=== PATIENT | female | born 1935 | race Caucasian/White ===

== ENCOUNTER 2018-01-06 15:32 | Inpatient (IN) | payer MEDICARE ==
[2018-01-06 16:06] LABS: Hemoglobin 12.8 g/dL (12.0-16.0); Mean Corpuscular HGB CONC 31.7 g/dL (32.0-36.0); Mean Corpuscular Hemoglobin 27.4 pg (27.0-31.0); Mean Corpuscular Volume 86.6 fl (81.0-99.0); Mean Platelet Volume 8.7 fL (7.4-10.4); Platelet Count 386 thou/uL (130-400); Red Blood Cell (RBC) Count 4.67 mill/uL (4.20-5.40); White Blood Cell (WBC) Count 18.7 thou/uL (4.8-10.8)
[2018-01-06 16:21] LABS: Band 23 % (5-11); Elliptocytes SLIGHT = 2-5 cells (100X) (0-1/hpf); Lymphocytes 3 % (21-51); MDiff Complete? YES; Monocytes 3 % (0-10); Neutrophil 71 % (42-75); Ovalocytes SLIGHT = 2-5 cells (100X) (0-1/hpf); PLT Morphology Comment Appears Adequate; Polychromasia SLIGHT = 2-3 cells (100X) (0-2/hpf); Toxic Granulation SLIGHT; Vacuoles SLIGHT
[2018-01-06 16:29] LABS: CKMB 0.9 ng/mL (0-6.6); Troponin I 0.134 ng/mL (< 0.028)
--- NOTE | 2018-01-06 16:55 | RAD ---
PORTABLE CHEST 01/06/18 PROVIDED CLINICAL HISTORY: Cough. FINDINGS: Comparison is made with the study dated 07/03/15. The cardiac silhouette remains enlarged. Atherosclerosis involves the aortic arch. Left subclavian ca rdiac pacing device is again noted with lead tips in similar positions. There is parenchymal opacity at the medial right lung base which may reflect pneumonia. No pleural fluid or pneumothorax apparent. IMPRESSION: Parenchymal opacity at the medial right lung base, which may reflect pneumonia. Followup is recommend ed. POS: OFF
[2018-01-06 17:07] LABS: Albumin 3.3 g/dL (3.4-4.8)
[2018-01-06 17:08] LABS: Chloride 100 mmol/L (98-107); Potassium 4.4 mmol/L (3.5-5.1); Sodium 138 mmol/L (136-145)
[2018-01-06 17:09] LABS: Calcium 8.9 mg/dL (7.8-10.44)
[2018-01-06 17:10] LABS: Globulin 3.5 g/dL (2.4-3.5); Glucose 76 mg/dL (83-110); Protein, Total 6.8 g/dL (6.0-8.3)
[2018-01-06 17:11] LABS: Anion Gap 14 mmol/L (10-20); Bilirubin, Total 0.5 mg/dL (0.2-1.2); Carbon Dioxide 28 mmol/L (23-31)
[2018-01-06 17:11] LABS: Prothrombin Time 23.4 SEC (12.0-14.7)
[2018-01-06 17:13] LABS: Alkaline Phosphatase 81 U/L (40-150); Calc. Creatinine Clearance 0 mL/min (70-130); Estimated GFR-MDRD 33
[2018-01-06 17:14] LABS: BUN (Urea Nitrogen) 32 mg/dL (9.8-20.1)
[2018-01-06 17:15] LABS: AST (SGOT) 19 U/L (5-34)
[2018-01-06 17:16] LABS: ALT (SGPT) 14 U/L (8-55)
[2018-01-06] MEDS ORDERED: Sodium Chloride 0.9% 1,000 ML IV SCH ×3 (17:45→21:28)
[2018-01-06] MEDS ORDERED: Acetaminophen 650 MG Suppository PR PRN (17:45)
[2018-01-06] MEDS ORDERED: WARFARIN PO PRN (18:05)
[2018-01-06] MEDS ORDERED: Warfarin Sodium 5 MG TAB PO SCH (18:15)
[2018-01-06] MEDS ORDERED: Dextrose 50% Abboject 50 ML SYRINGE SLOW IVP PRN (18:21)
[2018-01-06] MEDS ORDERED: Dextrose 5% in Water 1,000 ML IV PRN (18:21)
--- NOTE | 2018-01-06 19:01 | HP ---
PRIMARY CARE PROVIDER: PENNY Vogel OCCUPATIONAL THERAPY DEPARTMENT CHAIR: Dr. Talavera. INSTRUCTIONAL CONSULTANT: Dr. Razo. CHIEF COMPLAINT: Shortness of breath. HISTORY OF PRESENT ILLNESS: Ms. Rico is a pleasant 82-year-old lady who was seen at [facility] on 01/06/2018. Four days ago, she developed cough and runny nose. She reports that the cough was initially nonproductive, but subsequently she started having clear sputum. The , she took Mucinex. She also increased a use of her inhalers because she thought she was having an asthma exacerbation. The inhaler did not help much. Today, she had severe shortness of b reath. She also reports that she had a temperature of 100.2 degrees Fahrenheit yesterday. Today whe n her daughter came home, she was found to have roberts and short of breath. She therefore brought her to the emergency room. She reports chills, but denies any night sweats or weight loss. She denies any nausea, vomiting or d iarrhea. She denies any chest pain. She denies any urinary symptoms. REVIEW OF SYSTEMS: The following complete review of systems was negative, unless otherwise mentioned in the HPI or below: Constitutional: Weight loss or gain, ability to conduct usual activities. Sk in: Rash, itching. Eyes: Double vision, pain. ENT/Mouth: Nose bleeding, neck stiffness, pain, te nderness. Cardiovascular: Palpitations, dyspnea on exertion, orthopnea. Respiratory: Shortness of breath, wheezing, cough, hemoptysis, fever or night sweats. Gastrointestinal: Poor appetite, abdom inal pain, heartburn, nausea, vomiting, constipation, or diarrhea. Genitourinary: Urgency, frequenc y, dysuria, nocturia. Musculoskeletal: Pain, swelling. Neurologic/Psychiatric: Anxiety, depressio n. Allergy/Immunologic: Skin rash, bleeding tendency. PAST MEDICAL HISTORY: Significant for coronary artery disease, atrial fibrillation, hypertension, di abetes mellitus type 2, dyslipidemia, rectal adenocarcinoma status post resection, asthma, morbid obe sity, obstructive sleep apnea syndrome on CPAP therapy. PAST SURGICAL HISTORY: Significant for hysterectomy, colonoscopy, tonsillectomy, ileostomy with reve rsal, right craniotomy for probable meningioma, laparoscopic low anterior resection of rectal cancer, laparoscopic cholecystectomy and permanent pacemaker placement. FAMILY HISTORY: Significant for mother and daughter who from uterine cancer and another esthela r who from lung cancer. SOCIAL HISTORY: She lives with her daughter in [place]. She denies tobacco use, alcohol use or rec reational drug use. ALLERGIES: No known drug allergies. CURRENT MEDICATIONS: Metformin 500 mg 2 times a day, flecainide 50 mg 2 times a day, atorvastatin 40 mg daily, warfarin 5 mg daily, furosemide 40 mg daily, ferrous sulfate 27 mg daily, lisinopril 2.5 m g daily, glipizide 5 mg daily, albuterol nebulizer p.r.n., ProAir HFA p.r.n., metoprolol succinate 50 mg daily in the morning. PHYSICAL EXAMINATION: GENERAL: Ms. Rico is awake and alert, in mild respiratory distress. VITAL SIGNS: Blood pressure is 131/77, pulse is 73. She is breathing at rate of 22 and saturating 9 9% on 2 liters of oxygen. Room air oxygen saturations at 1539 hours were 85%. She is afebrile. EYES: No scleral icterus. No conjunctival pallor. ENT: Dry mucosal membranes, no oropharyngeal erythema or exudates. NECK: Supple, nontender, normal range of movement, trachea midline. RESPIRATORY: Accessory muscles of breathing are not active. Chest wall movements are symmetric bila terally. LUNGS: Reveals diffuse expiratory wheeze. CARDIOVASCULAR: S1 and S2 are heard, regular. Peripheral pulses palpable. No carotid bruit, no per icardial rub. ABDOMEN: Soft, nontender. Bowel sounds are heard, no hepatomegaly, no splenomegaly. NEUROLOGIC: Cranial nerves II-XII intact. Deep tendon reflexes are 2+. MUSCULOSKELETAL: Power is 5/5 in all 4 extremities. Normal range of movement at all major extremity joints. SKIN: No rashes or subcutaneous nodules. She has trace bilateral ankle edema. LYMPHATIC: No cervical lymphadenopathy. PSYCHIATRIC: Normal mood, normal affect, patient is oriented to person, place, and time. LABS AND INVESTIGATIONS: Ms. Rico's labs and investigations were reviewed. I reviewed her elect rocardiogram, which shows electronic ventricular paced rhythm. I also reviewed her chest x-ray, whic h shows right lower lobe pulmonary infiltrate. Laboratory investigations show leukocytosis with 18,700 white cells, of which 23% are bands and 71% a re neutrophils, hemoglobin 12.8, platelet count is normal at 386,000, INR 2.0, normal sodium, normal potassium, elevated blood urea nitrogen of 32, elevated creatinine of 1.52, decreased albumin of 3.3, otherwise unremarkable liver profile and indeterminate troponin I of 0.134. Influenza screen is neg ative for influenza A and influenza B antigens. ASSESSMENT AND PLAN: Ms. Rico is a pleasant 82-year-old lady who was seen at [facility] on 01/06/2018. Her problem list includes: 1. Sepsis: She meets the criteria for sepsis, with suspected source of infection in the lung. She will be admitted to the hospital for further management, including intravenous fluids and antibiotics . 2. Community-acquired pneumonia: She has received a dose of levofloxacin, which I will continue. P ulmonology service will also be consulted for opinion and help with further management. 3. Asthma exacerbation. She has diffuse wheezes and hypoxia, most likely secondary to asthma exacer bation. We will treat her with bronchodilators and steroids. 4. Acute hypoxic respiratory failure: Treatment as above. 5. Acute kidney injury: Most likely secondary to dehydration, clinically she is dehydrated. We sophia l provide intravenous fluids and recheck her creatinine level. 6. Atrial fibrillation. Continue anticoagulation. 7. Diabetes mellitus. Start Accu-Cheks and insulin sliding scale. 8. Hypertension: Monitor vital signs, titrate antihypertensives as needed. 9. Coronary artery disease, appears stable. Her troponin I is indeterminate, but she denies any bret st pain. The troponin elevation could be secondary to sepsis. I will recheck troponin level. Many thanks for allowing me to participate in your patient's care. Please feel free to contact me wi th any questions or concerns. LEVEL OF RISK: High. LEVEL OF COMPLEXITY: High.
[2018-01-06] MEDS ORDERED: Sodium Chloride 0.9% 10 ML ONE ×2 (20:20→23:50)
[2018-01-06] MEDS: Atorvastatin Calcium 40 MG TAB PO SCH (21:20)
[2018-01-06] MEDS ORDERED: hydrALAZINE 20 MG/ML VIAL SLOW IVP PRN (21:27)
[2018-01-06] MEDS ORDERED: guaiFENesin ER 600 MG TAB PO SCH (21:30)
[2018-01-06] MEDS ORDERED: Furosemide 20 MG/2 ML VIAL SLOW IVP SCH (23:30)
[2018-01-07] MEDS ORDERED: Sodium Chloride 0.9% 10 ML ONE (05:16)
[2018-01-07 05:37] LABS: Anion Gap 15 mmol/L (10-20); BUN (Urea Nitrogen) 38 mg/dL (9.8-20.1); Calc. Creatinine Clearance 45 mL/min (70-130); Carbon Dioxide 24 mmol/L (23-31); Chloride 102 mmol/L (98-107); Estimated GFR-MDRD 32; Glucose 63 mg/dL (83-110); Magnesium 1.7 mg/dL (1.6-2.6); Potassium 4.8 mmol/L (3.5-5.1); Sodium 136 mmol/L (136-145)
[2018-01-07 06:04] LABS: Band 9 % (5-11); Elliptocytes SLIGHT = 2-5 cells (100X) (0-1/hpf); Lymphocytes 7 % (21-51); MDiff Complete? YES; Mean Corpuscular HGB CONC 31.2 g/dL (32.0-36.0); Mean Corpuscular Hemoglobin 27.4 pg (27.0-31.0); Mean Corpuscular Volume 87.9 fl (81.0-99.0); Mean Platelet Volume 8.5 fL (7.4-10.4); Metamyelocyte 1 % (0-0); Monocytes 3 % (0-10); Neutrophil 80 % (42-75); Ovalocytes SLIGHT = 2-5 cells (100X) (0-1/hpf); PLT Morphology Comment Appears Adequate; Platelet Count 363 thou/uL (130-400); RBC Distribution Width 13.8 % (11.5-14.5); Red Blood Cell (RBC) Count 4.37 mill/uL (4.20-5.40); White Blood Cell (WBC) Count 18.5 thou/uL (4.8-10.8)
[2018-01-07] MEDS ORDERED: Warfarin Sodium 5 MG TAB PO SCH ×3 (09:00→17:00)
[2018-01-07] MEDS: Famotidine 20 MG TAB PO SCH (09:18)
[2018-01-07] MEDS: guaiFENesin ER 600 MG TAB PO SCH ×2 (09:18→21:13)
[2018-01-07 09:58] LABS: INR-International Normal Ratio 2.2; Prothrombin Time 25.6 SEC (12.0-14.7)
--- NOTE | 2018-01-07 12:51 | CON ---
DATE OF CONSULTATION: 01/07/2018 SUBJECTIVE: Ms. Leila Rico is an 82-year-old obese female from [place], [place], who was admi tted to the hospital yesterday with increasing shortness of breath, cough, and wheezing. She has known history of asthma. She has had allergies flare up, became more short of breath. Denie s any chest pain, chills or sweats. She had temperature up to 102 but the sputum that she was coughing up was relatively clear. PAST MEDICAL HISTORY: Coronary artery disease, atrial fibrillation, diabetes, morbid obesity, and sl eep apnea on CPAP therapy. Rectal cancer treated with surgery. She lives with her daughter. PAST SURGICAL HISTORY: Hysterectomy, colon, tonsils, craniotomy, laparoscopic gallbladder, pacemaker . SOCIAL AND FAMILY HISTORY: Otherwise unremarkable. She lives with her daughter. No family history of asthma. MEDICATIONS: Medicine list from home includes metformin 500, guaifenesin 1200, glipizide 5, Coumadin 5, metoprolol 50, lisinopril 2.5, indomethacin 50, Lasix 40. Through the admission, she was started on DuoNeb, Levaquin, steroids. PHYSICAL EXAMINATION: VITAL SIGNS: Sats are 98% on 3 liters, temperature 98, blood pressure 122/60. CHEST: Bilateral wheezing. CARDIAC: Normal S1-S2. No gallops. ABDOMEN: Soft. No masses. LABORATORY DATA AND IMAGING DATA: White count 18,000, hemoglobin and hematocrit 12 and 38, platelet count is 360. Creatinine 1.57. X-ray shows questionable right middle lobe infiltrate. Influenza ti ter was negative. Please note I reviewed all x-rays and reports. I reviewed her old medical records . No other family members to give history. IMPRESSION/PLAN: 1. add Dulera to her present nebulizer treatments, continue PT and supportive care, antibiotic s. We will follow. This is a consultation note, 70 minutes, of which 50% of the time was spent at the bedside taking car e of direct patient care.
--- NOTE | 2018-01-07 13:44 | PDOC.PN ---
- Subjective Encounter Start Date: 01/07/18 Encounter Start Time: 13:48 Subjective: Reports feeling much better today. -: No acute events overnight. - Objective Resuscitation Status: Resuscitation Status FULL:Full Resuscitation MAR Reviewed: Yes Vital Signs & Weight: Vital Signs (12 hours) Temp Pulse Resp BP Pulse Ox 01/07/18 12:00 97.3 F L 70 19 119/71 100 01/07/18 10:59 79 16 01/07/18 08:00 98.0 F 71 20 120/68 98 01/07/18 06:58 95 01/07/18 06:57 70 36 H 01/07/18 06:05 24 H 92 L 01/07/18 04:00 98.5 F 71 18 122/60 98 01/07/18 03:02 24 H 98 01/07/18 02:02 72 20 99 01/07/18 01:45 24 H 96 Weight Admit Weight 226 lb 3.2 oz Weight 236 lb I&O: 01/06/18 01/07/18 01/08/18 06:59 06:59 06:59 Intake Total 898 360 Output Total 600 Balance 298 360 Result Diagrams: 01/07/18 04:51 01/07/18 04:51 Additional Labs: Accuchecks 01/07/18 01/06/18 00:42 20:03 POC Glucose 110 67 L Phys Exam - Physical Examination Constitutional: NAD HEENT: PERRLA, moist MMs, sclera anicteric Neck: supple, full ROM coarse breath sounds b/l Cardiovascular: no rub Gastrointestinal: soft, non-tender, no distention, positive bowel sounds Musculoskeletal: no edema, pulses present Neurological: non-focal, moves all 4 limbs Psychiatric: normal affect, A&O x 3 Skin: no rash, normal turgor Dx/Plan (1) Acute respiratory failure with hypoxia Code(s): J96.01 - ACUTE RESPIRATORY FAILURE WITH HYPOXIA Status: Acute Comment: 2/2 CAP. Has been started on bronchodilators, antibiotics. Pulmonary reviewed and added Dulera. (2) Sepsis Code(s): A41.9 - SEPSIS, UNSPECIFIED ORGANISM Status: Acute Qualifiers: Sepsis type: sepsis due to unspecified organism Qualified Code(s): A41.9 - Sepsis, unspecified organism Comment: 2/2 CAP. Cultures pending Continued on IVF and antibiotics. (3) CAP (community acquired pneumonia) Code(s): J18.9 - PNEUMONIA, UNSPECIFIED ORGANISM Status: Acute Qualifiers: Laterality: right Lung location: middle lobe of lung Qualified Code(s): J18.1 - Lobar pneumonia, unspecified organism Comment: As above. (4) HTN (hypertension) Code(s): I10 - ESSENTIAL (PRIMARY) HYPERTENSION Status: Acute Qualifiers: Hypertension type: essential hypertension Qualified Code(s): I10 - Essential (primary) hypertension Comment: Controlled and at goal. Continue home meds. (5) Type 2 diabetes mellitus Status: Acute Qualifiers: Diabetes mellitus complication status: without complication Diabetes mellitus nursing home insulin use: without nursing home use Qualified Code(s): E11.9 - Type 2 diabetes mellitus without complications Comment: merformin held 2/2 LAKEISHA. COntinue SSI At goal. (6) Atrial fibrillation and flutter Code(s): I48.91 - UNSPECIFIED ATRIAL FIBRILLATION; I48.92 - UNSPECIFIED ATRIAL FLUTTER Status: Acute Comment: Rate controlled. Continue COumadin Daily INR (7) LAKEISHA (acute kidney injury) Code(s): N17.9 - ACUTE KIDNEY FAILURE, UNSPECIFIED Status: Acute Comment: Continue hydration (8) Asthma Code(s): J45.909 - UNSPECIFIED ASTHMA, UNCOMPLICATED Status: Acute Qualifiers: Asthma severity: moderate Asthma complication type: with acute exacerbation Comment: See problem #1 - Plan cont current plan of care, continue antibiotics, respiratory therapy * .
[2018-01-07] MEDS: Mometasone/Formoterol 120 PUFF INHALER INH SCH (18:38)
[2018-01-07] MEDS: Atorvastatin Calcium 40 MG TAB PO SCH (21:13)
[2018-01-08 05:49] LABS: INR-International Normal Ratio 2.8; Prothrombin Time 30.8 SEC (12.0-14.7)
[2018-01-08 06:15] LABS: Anion Gap 16 mmol/L (10-20); BUN (Urea Nitrogen) 56 mg/dL (9.8-20.1); Calc. Creatinine Clearance 35 mL/min (70-130); Carbon Dioxide 25 mmol/L (23-31); Chloride 99 mmol/L (98-107); Estimated GFR-MDRD 23; Glucose 71 mg/dL (83-110); Potassium 4.6 mmol/L (3.5-5.1); Sodium 135 mmol/L (136-145)
[2018-01-08 06:27] LABS: Band 25 % (5-11); Hemoglobin 13.4 g/dL (12.0-16.0); Lymphocytes 2 % (21-51); MDiff Complete? YES; Mean Corpuscular HGB CONC 30.1 g/dL (32.0-36.0); Mean Corpuscular Hemoglobin 27.3 pg (27.0-31.0); Mean Corpuscular Volume 90.7 fl (81.0-99.0); Mean Platelet Volume 8.5 fL (7.4-10.4); Monocytes 6 % (0-10); Neutrophil 67 % (42-75); PLT Morphology Comment Appears Adequate; Platelet Count 385 thou/uL (130-400); RBC Distribution Width 13.8 % (11.5-14.5); Red Blood Cell (RBC) Count 4.92 mill/uL (4.20-5.40); White Blood Cell (WBC) Count 20.7 thou/uL (4.8-10.8)
[2018-01-08] MEDS ORDERED: Sodium Chloride 0.9% 1,000 ML IV SCH ×2 (08:00→11:16)
[2018-01-08] MEDS: guaiFENesin ER 600 MG TAB PO SCH ×2 (08:42→21:06)
[2018-01-08] MEDS: Famotidine 20 MG TAB PO SCH (08:42)
[2018-01-08] MEDS: Mometasone/Formoterol 120 PUFF INHALER INH SCH ×2 (09:58→18:29)
--- NOTE | 2018-01-08 10:21 | ULT ---
BILATERAL RENAL SONOGRAM: Date: 01/08/18 HISTORY: Medical renal disease. FINDINGS: Right kidney measures 8.5 cm x 3.9 cm. Left kidney measures 8.9 cm x 5.0 cm. There is no evidence of renal mass, renal calculus, or hydronephrosis. No rental cortical thinning is present and there is no perinephric fluid seen. Urinary bladder is completely decompressed with Elliott catheter in place. IMPRESSION: Normal appearing bilateral kidneys, which are symmetric in size bilaterally, and there is no renal co rtical thinning or hydronephrosis. POS: NARGIS
--- NOTE | 2018-01-08 11:18 | PDOC.PN ---
- Subjective Encounter Start Date: 01/08/18 Encounter Start Time: 11:23 Subjective: Complains of being unable to get her breaths out and is anxious. -: No acute events overnight. - Objective Resuscitation Status: Resuscitation Status FULL:Full Resuscitation MAR Reviewed: Yes Vital Signs & Weight: Vital Signs (12 hours) Temp Pulse Resp BP Pulse Ox 01/08/18 09:58 71 36 H 01/08/18 09:47 97 01/08/18 09:45 71 36 H 01/08/18 08:35 98.8 F 72 29 H 136/61 100 01/08/18 04:00 97.5 F L 74 20 136/64 96 01/08/18 02:31 71 16 100 01/08/18 00:00 97.8 F 72 20 137/64 98 Weight Admit Weight 226 lb 3.2 oz Weight 230 lb 14.4 oz I&O: 01/07/18 01/08/18 01/09/18 06:59 06:59 06:59 Intake Total 898 1302 Output Total 600 600 Balance 298 702 Result Diagrams: 01/08/18 05:04 01/08/18 05:04 Additional Labs: Accuchecks 01/08/18 01/08/18 01/07/18 10:46 05:59 20:38 POC Glucose 127 H 87 98 01/07/18 01/07/18 01/07/18 16:51 11:57 06:25 POC Glucose 90 87 97 01/07/18 05:49 POC Glucose 68 L Phys Exam - Physical Examination Constitutional: NAD HEENT: PERRLA, moist MMs, sclera anicteric Neck: no nodes, no JVD, supple, full ROM Coarse sounds b/l with decreased breath sounds. Cardiovascular: RRR, no significant murmur, no rub Gastrointestinal: soft, non-tender, no distention, positive bowel sounds Musculoskeletal: no edema, pulses present Neurological: non-focal, moves all 4 limbs Psychiatric: normal affect, A&O x 3 Skin: no rash, normal turgor Dx/Plan (1) Acute respiratory failure with hypoxia Code(s): J96.01 - ACUTE RESPIRATORY FAILURE WITH HYPOXIA Status: Acute Plan: Continue current therapy f/u pulm recs. Comment: 2/2 CAP. Has been started on bronchodilators, antibiotics. Pulmonary reviewed and added Dulera. ABG with pH 7.26 and CO2 >60 Will start BiLevel and transfer to [facility] (2) LAKEISHA (acute kidney injury) Code(s): N17.9 - ACUTE KIDNEY FAILURE, UNSPECIFIED Status: Acute Comment: Cr Worsened overnight. Pt not in acute HF exacerbation and BNP ~ 200 so will hydrate with IVF. She likely has pre-renal 2/2 poor PO fluid intake. Renal US- no hydronephrosis or obstruction. No CKD. (3) Sepsis Code(s): A41.9 - SEPSIS, UNSPECIFIED ORGANISM Status: Acute Qualifiers: Sepsis type: sepsis due to unspecified organism Qualified Code(s): A41.9 - Sepsis, unspecified organism Comment: 2/2 CAP. Cultures pending Continued on IVF and antibiotics. (4) CAP (community acquired pneumonia) Code(s): J18.9 - PNEUMONIA, UNSPECIFIED ORGANISM Status: Acute Qualifiers: Laterality: right Lung location: middle lobe of lung Qualified Code(s): J18.1 - Lobar pneumonia, unspecified organism Comment: See Problem #1 (Acute resp fx) (5) HTN (hypertension) Code(s): I10 - ESSENTIAL (PRIMARY) HYPERTENSION Status: Acute Qualifiers: Hypertension type: essential hypertension Qualified Code(s): I10 - Essential (primary) hypertension Plan: Continue current medications. Comment: Controlled and at goal. Continued on home meds. 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 Comment: merformin held 2/2 LAKEISHA. COntinue SSI At goal. (7) Atrial fibrillation and flutter Code(s): I48.91 - UNSPECIFIED ATRIAL FIBRILLATION; I48.92 - UNSPECIFIED ATRIAL FLUTTER Status: Acute Plan: INR 2.8 today. Warfarin will be held Increase likely 2/2 Lecofloxacin effect. Comment: Rate controlled. Continue COumadin Daily INR (8) Asthma Code(s): J45.909 - UNSPECIFIED ASTHMA, UNCOMPLICATED Status: Acute Qualifiers: Asthma severity: moderate Asthma complication type: with acute exacerbation Comment: See problem #1 (9) Leucocytosis Code(s): D72.829 - ELEVATED WHITE BLOOD CELL COUNT, UNSPECIFIED Status: Acute Qualifiers: Leukocytosis type: unspecified Qualified Code(s): D72.829 - Elevated white blood cell count, unspecified Comment: Steroid induced. - Plan cont current plan of care, respiratory therapy, incentive spirometry, out of bed /ambulate, DVT proph w/heparin * .
--- NOTE | 2018-01-08 11:58 | RAD ---
PORTABLE AP CHEST: Date: 01/08/18 HISTORY: Tachypneic. COMPARISON: 01/06/18. FINDINGS: Dual lead left subclavian cardiac pacemaking device remains in place. The cardiac silhouette remains magnified by projection, but is enlarged. There is increased parenchymal opacity seen in the right in frahilar region, worrisome for pneumonia. Left lung appears clear. Vascular calcifications seen thora cic aorta. No other interval change. IMPRESSION: Pneumonia at the right lung base. Follow-up to complete resolution is recommended. POS: NARGIS
--- NOTE | 2018-01-08 13:35 | PRG ---
DATE OF SERVICE: 01/08/2018 SUBJECTIVE: She is still complaining of being short of breath. X-ray still shows a right-sided infi ltrate. PHYSICAL EXAMINATION: VITAL SIGNS: Sats are 97% on 2 liters, temperature 98, blood pressure 130/61. CHEST: Bilateral wheezing. CARDIAC: Normal S1, S2. ABDOMEN: Soft, no gallops. LABORATORY DATA: White count 20,000, hemoglobin and hematocrit 13 and 44, platelet count 385, creati nine 2.10. IMPRESSION: 1. Chronic obstructive pulmonary disease exacerbation, bronchitis. 2. Right-sided pneumonia. PLAN: Continue antibiotics, steroids, nebulizer treatments. Dulera. Continue supportive care. Add Mucinex. Consider CT of the chest if the right-sided density is not improved.
[2018-01-08] MEDS ORDERED: Magnesium 2 GM/NS 0.9% 100 ML 2 GM in Premix Bag 1 BAG IVPB SCH (13:45)
[2018-01-08] MEDS ORDERED: Morphine 5 MG/ML SYRINGE SLOW IVP SCH (14:00)
[2018-01-08 14:15] LABS: CO2 Tension 62.5 mmHg (35.0-45.0); pH, Arterial 7.26 (7.35-7.45)
[2018-01-08 14:16] LABS: Actual Bicarbonate (HCO3a) 27.6 mEq/L (22-26); Base Excess (BEa) -0.7 mEq/L (0 (+/-) 2.5); Hematocrit-ABG 45.3 % (36.0-47.0); Hemoglobin (Hb) 13.3 g/dL (12.0-16.0); O2 Tension (PaO2) 71.8 mmHg (80.0-100.0)
[2018-01-08 14:17] LABS: ALV-art Gradient 49.715 (0-20); Analyzer IN Cardio OR; Puncture Site RRA
[2018-01-08 14:18] LABS: Calcium, Ionized 1.2 mmol/L (1.12-1.30)
[2018-01-08] MEDS: Lorazepam 2 MG/ML VIAL SLOW IVP PRN (15:41)
[2018-01-08] MEDS: Cefepime 1 GM, Admixture Fee 1 EACH in Sterile Water 10 ML SLOW IVP SCH (16:01)
[2018-01-08] MEDS ORDERED: Warfarin Sodium 2.5 MG TAB PO SCH (17:00)
[2018-01-08] MEDS ORDERED: Cefepime 1 GM in Sodium Chloride 0.9% 100 ML IVPB SCH (21:00)
[2018-01-08] MEDS: Montelukast Sodium 10 mg Tablet PO SCH (21:06)
[2018-01-08] MEDS: Acetaminophen 325 MG TAB PO PRN (21:06)
[2018-01-08] MEDS: Atorvastatin Calcium 40 MG TAB PO SCH (21:06)
[2018-01-09] MEDS: Lorazepam 2 MG/ML VIAL SLOW IVP PRN (02:32)
[2018-01-09] MEDS: Cefepime 1 GM, Admixture Fee 1 EACH in Sterile Water 10 ML SLOW IVP SCH ×2 (03:51→16:41)
[2018-01-09 05:14] LABS: Anion Gap 14 mmol/L (10-20); BUN (Urea Nitrogen) 77 mg/dL (9.8-20.1); Calc. Creatinine Clearance 24 mL/min (70-130); Calcium 8.8 mg/dL (7.8-10.44); Carbon Dioxide 26 mmol/L (23-31); Chloride 100 mmol/L (98-107); Estimated GFR-MDRD 15; Glucose 115 mg/dL (83-110); Potassium 4.8 mmol/L (3.5-5.1); Prothrombin Time 44.7 SEC (12.0-14.7); Sodium 135 mmol/L (136-145)
[2018-01-09 05:16] LABS: INR-International Normal Ratio 4.5
[2018-01-09 05:22] LABS: #Lymphocytes 0.6 thou/uL (1.20-3.40); #Neutrophils 13.6 thou/uL (1.40-6.50); %Eosinophils 0.1 % (0.0-10.0); %Monocytes 6.5 % (0.0-10.0); %Neutrophils 89.5 % (42.0-75.0); Hemoglobin 11.6 g/dL (12.0-16.0); Mean Corpuscular HGB CONC 31.3 g/dL (32.0-36.0); Mean Corpuscular Hemoglobin 27.4 pg (27.0-31.0); Mean Corpuscular Volume 87.7 fl (81.0-99.0); Mean Platelet Volume 8.4 fL (7.4-10.4); Platelet Count 355 thou/uL (130-400); RBC Distribution Width 13.7 % (11.5-14.5); Red Blood Cell (RBC) Count 4.24 mill/uL (4.20-5.40); White Blood Cell (WBC) Count 15.2 thou/uL (4.8-10.8)
[2018-01-09] MEDS: Mometasone/Formoterol 120 PUFF INHALER INH SCH ×2 (08:07→18:39)
[2018-01-09] MEDS: Famotidine 20 MG TAB PO SCH (09:10)
[2018-01-09] MEDS: guaiFENesin ER 600 MG TAB PO SCH ×2 (09:10→20:38)
[2018-01-09] MEDS: Sodium Chloride 0.9% 1,000 ML IV SCH ×2 (09:14→20:36)
[2018-01-09 09:15] LABS: Actual Bicarbonate (HCO3v) 28 mEq/L (22-26); Base Excess -1.1 mEq/L (0 (+/- 2.5)); pH (venous) 7.24 (7.35-7.45)
[2018-01-09 09:16] LABS: Hematocrit-VBG 43.7 % (35-47); Hemoglobin (Hb) 12.4 g/dL (11.7-16.1)
[2018-01-09 09:17] LABS: Calcium, Ionized 1.14 mmol/L (1.16-1.32); Chloride (ABG LAB) 97 mmol/L (98-106); Potassium - ABG Lab 4.6 mmol/L (3.70-5.30); Sodium 132.7 mmol/L (133-146)
--- NOTE | 2018-01-09 10:44 | RAD ---
RADIOGRAPH CHEST 1 VIEW: Date: 01/09/18 Time: 1009 HOURS HISTORY: 82-year-old female with pneumonia. COMPARISON: 01/08/18 at 1101 hours. FINDINGS: Again noted is the air space density at the medial aspect of the right lower lobe. There is cardiomeg elizabeth. Left subclavian dual lead pacemaker. No brennan pulmonary alveolar edema. Lateral costophrenic ang les are not effaced. No pneumothorax. No interval change overall. IMPRESSION: 1. No interval change in the right lower lobe air space opacity: Evidence for right lower lobe pneu monia. 2. Cardiomegaly. 3. Pacemaker. 4. No interval change overall since yesterday. MARCEL [] POS: NARGIS
--- NOTE | 2018-01-09 11:01 | PDOC.PN ---
- Subjective Encounter Start Date: 01/09/18 Encounter Start Time: 11:09 -: Patient reports feeling better than yesterday. -: Transferred to [facility] 2/2 respiratory acidosis, started BiPAP No acute events overnight. - Objective Resuscitation Status: Resuscitation Status FULL:Full Resuscitation MAR Reviewed: Yes Vital Signs & Weight: Vital Signs (12 hours) Temp Pulse Resp BP Pulse Ox 01/09/18 08:33 99 01/09/18 08:04 99 30 H 100 01/09/18 08:02 99 100 01/09/18 08:00 97.6 F 78 25 H 101/44 L 100 01/09/18 05:00 116/45 L 01/09/18 04:03 87/42 L 01/09/18 03:53 98.1 F 70 24 H 106/48 L 100 01/09/18 03:02 88/41 L 01/09/18 02:48 70 01/09/18 02:47 70 29 H 99 01/09/18 01:08 92/42 L 01/08/18 23:27 98.2 F 70 28 H 108/42 L 98 Weight Admit Weight 226 lb 3.2 oz Weight 228 lb 9.6 oz I&O: 01/08/18 01/09/18 01/10/18 06:59 06:59 06:59 Intake Total 1302 667.25 Output Total 600 355 Balance 702 312.25 Result Diagrams: 01/09/18 04:38 01/09/18 04:38 Additional Labs: Accuchecks 01/09/18 01/08/18 01/08/18 06:06 22:15 16:39 POC Glucose 112 H 100 104 01/08/18 10:46 POC Glucose 127 H Phys Exam - Physical Examination Constitutional: NAD HEENT: PERRLA, moist MMs, sclera anicteric, oral pharynx no lesions Neck: no JVD, supple, full ROM Respiratory: no wheezing, no rales, no rhonchi Bronchial breath sounds b/l Cardiovascular: no significant murmur, no rub, irregular Gastrointestinal: soft, non-tender, no distention, positive bowel sounds Musculoskeletal: no edema, pulses present Neurological: non-focal, normal sensation Psychiatric: normal affect, A&O x 3 Skin: no rash, normal turgor Dx/Plan (1) Acute respiratory failure with hypoxia Code(s): J96.01 - ACUTE RESPIRATORY FAILURE WITH HYPOXIA Status: Acute Plan: Continue nebs, BiPAP, steroids. f/u CT chest Comment: 2/2 CAP. pH acidotic with PCO2 ~60. Started on BiPAP. CT chest ordered. Will f/u Currently on levofloxacin and cefepime. Cx negative till date. (2) LAKEISHA (acute kidney injury) Code(s): N17.9 - ACUTE KIDNEY FAILURE, UNSPECIFIED Status: Acute Plan: Nephrology consult. Comment: Cr Worsened. Pt not in acute HF exacerbation and BNP ~ 200 so will hydrate with IVF. She likely has pre-renal 2/2 poor PO fluid intake. Renal US- no hydronephrosis or obstruction. No CKD. (3) Sepsis Code(s): A41.9 - SEPSIS, UNSPECIFIED ORGANISM Status: Acute Qualifiers: Sepsis type: sepsis due to unspecified organism Qualified Code(s): A41.9 - Sepsis, unspecified organism Comment: 2/2 CAP. Cultures negative so far. Currently on levofloxacin and cefepime. Continued on IVF and antibiotics. (4) CAP (community acquired pneumonia) Code(s): J18.9 - PNEUMONIA, UNSPECIFIED ORGANISM Status: Acute Qualifiers: Laterality: right Lung location: middle lobe of lung Qualified Code(s): J18.1 - Lobar pneumonia, unspecified organism Comment: See Problem #1 (Acute resp fx) (5) HTN (hypertension) Code(s): I10 - ESSENTIAL (PRIMARY) HYPERTENSION Status: Acute Qualifiers: Hypertension type: essential hypertension Qualified Code(s): I10 - Essential (primary) hypertension Comment: Controlled and at goal. Continued on home meds. 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 COntinue SSI At goal. (7) Atrial fibrillation and flutter Code(s): I48.91 - UNSPECIFIED ATRIAL FIBRILLATION; I48.92 - UNSPECIFIED ATRIAL FLUTTER Status: Acute Comment: Rate controlled. Daily INR. Coumadin held 2/2 supratherapeutic INR (8) Asthma Code(s): J45.909 - UNSPECIFIED ASTHMA, UNCOMPLICATED Status: Chronic Qualifiers: Asthma severity: moderate Asthma complication type: with acute exacerbation Comment: See problem #1 (9) Leucocytosis Code(s): D72.829 - ELEVATED WHITE BLOOD CELL COUNT, UNSPECIFIED Status: Acute Qualifiers: Leukocytosis type: unspecified Qualified Code(s): D72.829 - Elevated white blood cell count, unspecified Comment: Steroid induced. (10) S/P cardiac pacemaker procedure Status: Chronic Plan: Unchanged. (11) Supratherapeutic INR Code(s): R79.1 - ABNORMAL COAGULATION PROFILE Status: Acute Comment: Likely effect of quinolones. Warfarin being held. No signs of bleeding and pt pasymptomatic. - Plan cont current plan of care, continue antibiotics, respiratory therapy, DVT proph w/heparin * .
[2018-01-09] MEDS: Albumin 25% 25 GM/100 ML BOT IVPB SCH ×2 (11:47→17:32)
[2018-01-09] MEDS: Budesonide 0.25 MG/2 ML NEB INH SCH ×3 (12:28→23:09)
[2018-01-09 14:32] LABS: Bilirubin Negative (Negative); Blood, Urine Large (Negative); Clarity CLOUDY (Clear); Glucose, Urine (Dipstick) Negative (Negative); Leukocyte Small (Negative); Nitrite Negative (Negative); Protein, Urine (Dipstick) 30 mg/dL (Neg-Trace); Specific Gravity, Urine 1.018 (1.002-1.036); Urobilinogen 0.2 mg/dL (0.2-1.0); pH, Urine 5.5 (5.0-9.0)
[2018-01-09 14:34] LABS: Bacteria/HPF None Seen HPF (None Seen); RBC/HPF GREATER THAN 50-TNTC HPF (0-3); Squamous Epithelial None Seen HPF (0-3)
[2018-01-09 14:38] LABS: Pathc Cast-AUWi Flag 2.98 (0-2.49)
[2018-01-09 14:47] LABS: Hyaline Casts/LPF 0-3 HYALINE CAST LPF (0-3 Hyaline); Other Casts/LPF None Seen LPF (0-3 Hyaline)
[2018-01-09 14:50] LABS: Creatinine, Urine 119.04 mg/dL (47-110)
--- NOTE | 2018-01-09 16:50 | RAD ---
PORTABLE CHEST: Comparison: Earlier exam, same day. History: Central line placement. FINDINGS: Interval placement of a right sided subclavian line, catheter tip overlying the superior vena cava. N o signs of pneumothorax. IMPRESSION: 1. Placement of a right sided central line. No signs of pneumothorax. 2. Slight improvement to the parenchymal changes in the right base. POS: [facility]
[2018-01-09] MEDS ORDERED: Warfarin Sodium 2.5 MG TAB PO SCH (17:00)
[2018-01-09] MEDS: Nystatin Powder 15 GM BOT TOP SCH (17:31)
--- NOTE | 2018-01-09 18:24 | PRG ---
DATE OF SERVICE: 01/09/2018 SUBJECTIVE: Leila Rico is an 82-year-old female still having difficulty breathing this morni ng, coughing and wheezing. Sputum is clear. She had a BiPAP last night, transferred to the MICU. OBJECTIVE: VITAL SIGNS: Sats are 97% on nasal O2 2 liters, respirations 28, pulse 99, blood pressure 130/80. CHEST: Decreased breath sounds without any wheezing. CARDIAC: Normal S1, S2. No gallops. I's and O's 1302 in and 600 out. LABORATORY DATA: White count 15,000, H and H 11 and 37, platelet count 355, 89 segs. INR is 4.5. Cr eatinine is 2.9 and BUN 77. IMPRESSION: 1. Increasing azotemia, prerenal. 2. Chronic obstructive pulmonary disease exacerbation, bronchitis, asthma. 3. Abnormal chest x-ray. 4. Morbid obesity. 5. Hypercoagulable. PLAN: She is on maximum bronchodilator therapy. Continue antibiotics, continue steroids. Continue aggressive neb treatments. Slow hydration. Consider CT of the chest when she is stable. We will follow in the MICU.
--- NOTE | 2018-01-09 18:44 | CON ---
DATE OF CONSULTATION: 01/09/2018 RENAL MEDICINE HISTORY OF PRESENT ILLNESS: Ms. Rico is an 82-year-old white female from [place] was admitted f or shortness of breath. She was found to have pneumonia. She also has a presumed COPD exacerbation. We are now being consulted for her acute kidney injury on top of her chronic renal failure. REVIEW OF SYSTEMS: Positive for dry cough, positive for fever, positive for shortness of breath. No nausea, no vomiting, no abdominal pain, no chest pain, no syncopal episode, no gross hematuria, no p roductive cough, no dysuria, no urinary frequency. Appetite and energy level is decreased. No diplo sujata. Positive for sore throat. HOME MEDICATIONS: Included the following; indomethacin 50 mg p.o. t.i.d. p.r.n., metoprolol succinat e 50 mg daily, ferrous sulfate 325 mg once a day, ProAir as directed, glipizide 5 mg q.a.m., lisinopr il 2.5 mg q.a.m., Coumadin as directed, metformin 500 mg as directed, Lasix 40 mg q.a.m., atorvastati n 40 mg tab at bedtime. PAST MEDICAL HISTORY: Hypertension, type 2 diabetes mellitus, DJD, atrial fibrillation?, hyperlipide missy, COPD. She also has history of colon cancer in remission, history of morbid obesity, obstructive sleep apnea. PAST SURGICAL HISTORY: 1. Status post colonoscopy. 2. Status post hysterectomy. 3. Status post tonsillectomy. 4. Status post craniotomy -- benign tumor. 5. Status post laparoscopic low anterior resection for rectal cancer. 6. Status post permanent pacemaker placement. 7. Status post ileostomy reversal. SOCIAL HISTORY: The patient is single, lives in [place], lives with her daughter. No history of sm oking, no alcohol intake, status post blood transfusion. 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 Sedentary lifestyle. FAMILY HISTORY: No family history of ESRD. ALLERGIES: None. TRAUMA: Status post fall with right upper extremity fracture, right ankle fracture. IMMUNIZATIONS: Up to date. HOSPITALIZATIONS: Please see past medical history. PHYSICAL EXAMINATION: VITAL SIGNS: Blood pressure is noted at 101/44, heart rate 99, respiratory rate 30, pulse ox 100%. GENERAL: Awake, obese, supine, mild respiratory distress. SKIN: Adequate turgor. HEENT: She has pinkish conjunctivae, anicteric sclerae. NECK: No neck mass, no carotid bruits, no JVD. CHEST: No deformities. LUNGS: Harsh breath sounds with occasional wheezing. HEART: Normal sinus rhythm. No murmur, no gallops or rubs. ABDOMEN: Globular, soft, nontender. EXTREMITIES: Trace edema. NEUROLOGIC: Awake, oriented to 3 spheres. Moving all extremities. No tremors, no asterixis. HOSPITAL MEDICATIONS: Reviewed. The patient is noted to be on DuoNeb treatment, Lipitor 40 mg at be dtime. She also has cefepime 1 gram IV q.12 h. She is on Humalog sliding scale, Levaquin 750 mg caitlin ry day, Solu-Medrol 40 mg IV q.6 h, Singulair 10 mg tab once a day, normal saline 150 mL per hour, Co umadin as directed. LABORATORY: Includes 01/09/2008, white count 15.2, hemoglobin 11.6. Sodium 132, potassium 4.6, chlo ride 97, BUN is 77, creatinine 2.95, calcium 8.8. On 01/08/2018, BUN 56, creatinine 2.1. On 01/07/2018, creatinine 1.57. Renal ultrasound was said to be within normal. On 01/08/2018, chest x-ray, there is no evidence of C HF, right lung base infiltrate suggestive of pneumonia. Left lung is said to be clear. ASSESSMENT AND PLAN: Acute kidney injury on top of her chronic renal failure -- I suspect a prerenal component. Continue current IV hydration. I would suggest we start this patient on albumin infusio n 25 grams IV q.6 x3 days. No indication for any dialytic intervention. Please note the patient was taking some NSAIDs, BRIEN inhibitors and diuretics. Will place hold on that. This could also be aggr avating her renal dysfunction in the last several days. Pneumonia, on IV antibiotics. Continue supp ortive care. We will be reviewing urinalysis and urine chemistries with this patient.
[2018-01-09] MEDS ORDERED: Sodium Chloride 0.9% 1,000 ML IV SCH (19:15)
[2018-01-09] MEDS: Montelukast Sodium 10 mg Tablet PO SCH (20:38)
[2018-01-09] MEDS: Atorvastatin Calcium 40 MG TAB PO SCH (20:38)
[2018-01-10] MEDS: Albumin 25% 25 GM/100 ML BOT IVPB SCH ×5 (00:23→23:59)
[2018-01-10] MEDS: Budesonide 0.25 MG/2 ML NEB INH SCH ×3 (02:15→10:36)
[2018-01-10] MEDS: Cefepime 1 GM, Admixture Fee 1 EACH in Sterile Water 10 ML SLOW IVP SCH ×2 (02:55→16:01)
[2018-01-10 06:11] LABS: Prothrombin Time 61.6 SEC (12.0-14.7)
[2018-01-10 06:17] LABS: INR-International Normal Ratio 6.6
[2018-01-10] MEDS ORDERED: Phytonadione 10 MG/ML AMP PO SCH (07:30)
[2018-01-10] MEDS: Mometasone/Formoterol 120 PUFF INHALER INH SCH ×2 (08:03→18:31)
--- NOTE | 2018-01-10 08:35 | RAD ---
PORTABLE CHEST 1 VIEW: DATE: 01/10/18. TIME: 4:38 a.m. History Pneumonia. FINDINGS: Comparison is made with the exam of the previous day. Right-sided subclavian central line and left-sided pacemaker device remain in place. The heart is en larged. There is mild pulmonary vascular congestion. There is patchy parenchymal opacity in the rig ht medial lung base suspicious for pneumonia. No pneumothoraces or pleural effusions are seen. Ther e are degenerative changes in the shoulder joints and the spine. IMPRESSION: Stable exam. POS: [facility]
[2018-01-10] MEDS: Nystatin Powder 15 GM BOT TOP SCH ×3 (08:47→20:52)
[2018-01-10] MEDS: Famotidine 20 MG TAB PO SCH (08:47)
[2018-01-10] MEDS: guaiFENesin ER 600 MG TAB PO SCH ×2 (08:54→20:52)
[2018-01-10 09:15] LABS: Anion Gap 13 mmol/L (10-20); BUN (Urea Nitrogen) 90 mg/dL (9.8-20.1); Calc. Creatinine Clearance 22 mL/min (70-130); Calcium 8.8 mg/dL (7.8-10.44); Carbon Dioxide 27 mmol/L (23-31); Chloride 101 mmol/L (98-107); Estimated GFR-MDRD 14; Glucose 114 mg/dL (83-110); Potassium 4.9 mmol/L (3.5-5.1); Sodium 136 mmol/L (136-145)
--- NOTE | 2018-01-10 09:54 | PRG ---
DATE OF SERVICE: 01/10/2018 Ms. Rico is an 82-year-old white female who was initially admitted for complaints of shortness of breath. She was found to have a chronic obstructive pulmonary disease exacerbation/pneumonia. We w ill consult for acute kidney injury. She is receiving current IV hydration with crystalloids and col loids. No new complaints today. According to the patient her urine output is somewhat increased. S he denies any worsening shortness of breath. PHYSICAL EXAMINATION: VITAL SIGNS: Blood pressure is 123/55, heart rate 69, respiratory rate 24, temperature 97.6, pulse o ximetry 100%. GENERAL: Awake, supine, comfortable, obese. SKIN: Adequate turgor. HEENT: She has pinkish conjunctivae, anicteric sclerae. NECK: No neck mass, no carotid bruits, no JVD. CHEST: No deformities. LUNGS: Decreased breath sounds. HEART: Normal sinus rhythm. No murmur, no gallops, no rubs. ABDOMEN: Globular, soft, nontender, no masses. EXTREMITIES: No edema, no deformities. MEDICATIONS: 01/10/2018 - Reviewed. LABORATORY: 01/10/2018 - Sodium of 136, potassium 4.9, chloride 101, carbon dioxide 27, BUN 90, crea tinine 3.19, glucose 114, calcium 8.8. ASSESSMENT AND PLAN: Acute kidney injury - presumptive hemodynamically mediated renal dysfunction. Continue current IV volume repletion, crystalloids and salt poor albumin. Please note the creatini ne is slightly worse at 3.19 when compared to yesterday at 2.95. My suspicion is that I think she wi ll have improvement with renal function. Urinalysis did not suggest acute tubular necrosis. In jj tion, the fractional excretion of sodium is less than 1%. Continue supportive care. There is no ind ication for any dialytic intervention.
--- NOTE | 2018-01-10 10:21 | CT ---
CT CHEST WITHOUT CONTRAST: Date: 01/10/18 HISTORY: 82-year-old female with respiratory failure, pneumonia. FINDINGS: Absence of IV contrast reduces the sensitivity of exam, particularly for evaluation of mediastinal, h ilar, and vascular structures. There are vascular calcifications without evidence of aneurysmal dilatation of the thoracic aorta. No pericardial effusion is seen. There is a small right pleural effusion. There is bibasilar atelectasi s/consolidation. Scattered patchy infiltrates are seen in the upper and mid lung zones. No pneumothor aces are identified. There are degenerative changes in the spine. IMPRESSION: Findings are suspicious for pneumonia. POS: [facility]
--- NOTE | 2018-01-10 10:44 | PDOC.PN ---
- Subjective Encounter Start Date: 01/10/18 Encounter Start Time: 09:30 -: old records requested/rev pt is very weak, has cough, has dyspnea, family bedside - Objective Resuscitation Status: Resuscitation Status FULL:Full Resuscitation MAR Reviewed: Yes Vital Signs & Weight: Vital Signs (12 hours) Temp Pulse Resp BP Pulse Ox 01/10/18 08:00 70 01/10/18 07:57 70 23 H 99 01/10/18 07:20 97.6 F 69 24 H 123/55 L 100 01/10/18 03:22 98.0 F 69 30 H 135/44 L 100 01/10/18 02:15 70 23 H 100 01/10/18 02:14 70 01/10/18 02:13 70 24 H 100 01/10/18 00:00 70 24 H 122/49 L 100 01/09/18 23:09 74 31 H 100 Weight Admit Weight 226 lb 3.2 oz Weight 229 lb 8 oz I&O: 01/09/18 01/10/18 01/11/18 06:59 06:59 06:59 Intake Total 667.25 2576 Output Total 355 550 Balance 312.25 2026 Result Diagrams: 01/09/18 04:38 01/10/18 05:50 Additional Labs: Accuchecks 01/10/18 01/09/18 01/09/18 07:46 21:09 16:30 POC Glucose 110 100 115 H 01/09/18 10:54 POC Glucose 144 H Radiology Reviewed by me: Yes (chest xray and chest CT) EKG Reviewed by me: Yes (nsr) Phys Exam - Physical Examination Constitutional: NAD HEENT: PERRLA, moist MMs, sclera anicteric Neck: no JVD, supple bilateral coarse rales and wheezing Cardiovascular: RRR, no significant murmur, no rub Gastrointestinal: soft, non-tender, no distention, positive bowel sounds obesity+ Musculoskeletal: no edema, pulses present Neurological: non-focal Lymphatic: no nodes Psychiatric: normal affect Skin: no rash, normal turgor Dx/Plan (1) Acute renal failure superimposed on stage 3 chronic kidney disease Code(s): N17.9 - ACUTE KIDNEY FAILURE, UNSPECIFIED; N18.3 - CHRONIC KIDNEY DISEASE, STAGE 3 (MODERATE) Status: Acute (2) Acute respiratory failure with hypoxia and hypercarbia Code(s): J96.01 - ACUTE RESPIRATORY FAILURE WITH HYPOXIA; J96.02 - ACUTE RESPIRATORY FAILURE WITH HYPERCAPNIA Status: Acute (3) Community acquired bacterial pneumonia Code(s): J15.9 - UNSPECIFIED BACTERIAL PNEUMONIA Status: Acute (4) Sepsis with acute organ dysfunction Code(s): A41.9 - SEPSIS, UNSPECIFIED ORGANISM; R65.20 - SEVERE SEPSIS WITHOUT SEPTIC SHOCK Status: Acute (5) Supratherapeutic INR Code(s): R79.1 - ABNORMAL COAGULATION PROFILE Status: Acute Comment: Likely effect of quinolones. Warfarin being held. No signs of bleeding and pt pasymptomatic. (6) Asthma Code(s): J45.909 - UNSPECIFIED ASTHMA, UNCOMPLICATED Status: Chronic Qualifiers: Asthma severity: moderate Asthma complication type: with acute exacerbation Comment: See problem #1 (7) H/O cardiac pacemaker Code(s): Z95.0 - PRESENCE OF CARDIAC PACEMAKER Status: Chronic (8) HTN (hypertension) Code(s): I10 - ESSENTIAL (PRIMARY) HYPERTENSION Status: Chronic Qualifiers: Hypertension type: essential hypertension Qualified Code(s): I10 - Essential (primary) hypertension Comment: Controlled and at goal. Continued on home meds. 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 Review of Systems - Review of Systems Constitutional: weakness, malaise. negative: fever, chills, sweats, other Respiratory: Cough, Shortness of Breath, SOB with Excertion. negative: Dry, Hemoptysis, Pleuritic Pain, Sputum, Wheezing Cardiovascular: negative: chest pain, palpitations, orthopnea, paroxysmal nocturnal dyspnea, edema, light headedness, other Gastrointestinal: negative: Nausea, Vomiting, Abdominal Pain, Diarrhea, Constipation, Melena, Hematochezia, Other Genitourinary: negative: Dysuria, Frequency, Incontinence, Hematuria, Retention , Other Musculoskeletal: negative: Neck Pain, Shoulder Pain, Arm Pain, Back Pain, Hand Pain, Leg Pain, Foot Pain, Other - Medications/Allergies Allergies/Adverse Reactions: Allergies Allergy/AdvReac Type Severity Reaction Status Date / Time No Known Allergies Allergy Verified 04/03/14 10:20 Medications: Current Medications Acetaminophen (Tylenol) 650 mg PO Q4H PRN PRN Reason: Headache/Fever or Pain Last Admin: 01/08/18 21:06 Dose: 650 mg Albumin Human (Albumin 25%) 25 gm IVPB Q6HR [facility] Stop: 01/12/18 06:01 Last Admin: 01/10/18 05:12 Dose: 25 gm Albuterol/Ipratropium (Duoneb) 3 ml NEB [id number] [facility] Last Admin: 01/10/18 07:57 Dose: 3 ml Albuterol/Ipratropium (Duoneb) 3 ml NEB Q2H PRN PRN Reason: SOB &/or Wheezing Atorvastatin Calcium (Lipitor) 40 mg PO HS [facility] Last Admin: 01/09/18 20:38 Dose: 40 mg Dextrose/Water (Dextrose 50%) 25 gm SLOW IVP PRN PRN PRN Reason: Hypoglycemia Last Admin: 01/07/18 00:09 Dose: 25 gm Famotidine (Pepcid) 20 mg PO DAILY [facility] Last Admin: 01/10/18 08:47 Dose: 20 mg Glucagon (Glucagon) 1 mg IM PRN PRN PRN Reason: Hypoglycemia Guaifenesin (Mucinex) 1,200 mg PO Q12HR [facility] Last Admin: 01/10/18 08:54 Dose: 1,200 mg Hydralazine HCl (Apresoline) 10 mg SLOW IVP Q4H PRN PRN Reason: SBP Greater Than 180 Dextrose/Water (D5w) 1,000 mls @ 0 mls/hr IV .Q0M PRN; As Directed PRN Reason: Hypoglycemia Cefepime HCl 1 gm/Miscellaneous Medication 1 each/ Sterile Water 10 mls @ 120 mls/hr SLOW IVP 0300,1500 [facility] Last Admin: 01/10/18 02:55 Dose: 10 mls Sodium Chloride (Normal Saline 0.9%) 1,000 mls @ 50 mls/hr IV .Q20H [facility] Levofloxacin 750 mg/ Device 150 mls @ 100 mls/hr IVPB Q2DAYS [facility] Insulin Human Lispro (Humalog) 0 units SC .MILD SLIDING SCALE PRN PRN Reason: Mild Correctional Scale Lorazepam (Ativan) 0.5 mg SLOW IVP Q6H PRN PRN Reason: Anxiety/Agitation Last Admin: 01/09/18 02:32 Dose: 0.5 mg Miscellaneous Medication (Pharmacy To Dose) 1 each PO PRN PRN PRN Reason: Pharmacy to dose Mometasone Furoate/Formoterol Fumar (Dulera 200 Mcg/5 Mcg Inhaler) 2 puff INH BID-RT [facility] Last Admin: 01/10/18 08:03 Dose: 2 puff Montelukast Sodium (Singulair) 10 mg PO QPM [facility] Last Admin: 01/09/18 20:38 Dose: 10 mg Nystatin (Mycostatin Powder) 0 gm TOP TID [facility] Last Admin: 01/10/18 08:47 Dose: 1 applic Prednisone (Prednisone) 40 mg PO QAM-WM [facility] Stop: 01/14/18 08:01 Sodium Chloride (Flush - Normal Saline) 10 ml IVF Q12HR [facility] Last Admin: 01/10/18 08:49 Dose: 10 ml Sodium Chloride (Flush - Normal Saline) 10 ml IVF PRN PRN PRN Reason: Saline Flush Last Admin: 01/08/18 06:09 Dose: 10 ml
--- NOTE | 2018-01-10 12:28 | PRG ---
DATE OF SERVICE: 01/10/2018 SERVICE: Pulmonary Medicine. INTERVAL HISTORY: The patient is doing fine from a breathing standpoint. She has been able to nataliia ate BiPAP break today. This is the first time that she has been able to tolerate that kind of brakes since being here. She denies any current fevers, chills. She continues to cough up some yellow spu pepper. Otherwise, there has been no interval change to her condition. PHYSICAL EXAMINATION: VITAL SIGNS: Afebrile, pulse 70, blood pressure 159/56, respirations 19, saturation 99% on 3 liters nasal cannula. GENERAL: Patient is awake, alert, in no apparent distress. LUNGS: Decent air entry with rhonchi present. There is slightly prolonged expiratory phase. No whe ezing. HEART: Normal rate, regular. ABDOMEN: Soft, nontender, nondistended. Bowel sounds are positive. MUSCULOSKELETAL: No cyanosis or clubbing. There is trace 1+ pitting in the bilateral lower extremit ies. NEUROLOGIC: Grossly nonfocal. LABORATORY DATA: WBC 15.2, hemoglobin 11.6, platelets 355,000. INR 6.6. PH 7.24, pCO2 66, pO2 43. BUN 90, creatinine 3.19 and stabilizing, bicarbonate 27. Urinalysis is consistent with possible uri nary tract infection. Blood culture x2 is negative. Influenza A and B is also negative. IMAGING: CT of the chest demonstrates findings consistent with pneumonia. This involves the lateral and posterior basal segments of the right lower lobe, and a smaller portion of the left lower lobe. Otherwise, there is no acute cardiopulmonary abnormality identified. ASSESSMENT: 1. Acute hypoxic respiratory failure. 2. Community-acquired pneumonia. 3. Acute bronchitis. 4. Obstructive sleep apnea, moderate, requiring CPAP at 12 cm of water. 5. Acute kidney injury on chronic kidney disease. PLAN: We will continue our gentle hydration, but I will drop the rate to 50 mL per hour. We will co ntinue our antibiotics. The patient seems to be improving on a day by day basis. We will continue o ur BiPAP breaks as tolerated, start focusing on mobilizing the patient as much as she tolerates. She will remain in the IMCU until she tolerates more robust BiPAP breaks. Ultimately, she will be consi dered for transition to the floor once she is less dependent on the noninvasive ventilation.
[2018-01-10] MEDS: Sodium Chloride 0.9% 1,000 ML IV SCH ×2 (12:33→19:18)
[2018-01-10] MEDS: Atorvastatin Calcium 40 MG TAB PO SCH (20:52)
[2018-01-10] MEDS: Montelukast Sodium 10 mg Tablet PO SCH (20:52)
[2018-01-11] MEDS: Cefepime 1 GM, Admixture Fee 1 EACH in Sterile Water 10 ML SLOW IVP SCH ×2 (03:39→15:39)
[2018-01-11] MEDS: Albumin 25% 25 GM/100 ML BOT IVPB SCH (05:39)
[2018-01-11 05:57] LABS: #Lymphocytes 0.8 thou/uL (1.20-3.40); #Monocytes 1.4 thou/uL (0.11-0.59); #Neutrophils 10.5 thou/uL (1.40-6.50); %Basophils 0.1 % (0.0-1.0); %Eosinophils 0.3 % (0.0-10.0); %Lymphocytes 6.1 % (21.0-51.0); %Monocytes 11.3 % (0.0-10.0); %Neutrophils 82.2 % (42.0-75.0); Hemoglobin 10.9 g/dL (12.0-16.0); Mean Corpuscular HGB CONC 31.2 g/dL (32.0-36.0); Mean Corpuscular Hemoglobin 27.2 pg (27.0-31.0); Mean Corpuscular Volume 87.4 fl (81.0-99.0); Mean Platelet Volume 8.3 fL (7.4-10.4); Platelet Count 280 thou/uL (130-400); RBC Distribution Width 13.8 % (11.5-14.5); Red Blood Cell (RBC) Count 4.01 mill/uL (4.20-5.40); White Blood Cell (WBC) Count 12.8 thou/uL (4.8-10.8)
[2018-01-11 06:02] LABS: Prothrombin Time 23.4 SEC (12.0-14.7)
[2018-01-11 06:12] LABS: Anion Gap 14 mmol/L (10-20); BUN (Urea Nitrogen) 100 mg/dL (9.8-20.1); BUN/Creatinine Ratio 31.95; Calc. Creatinine Clearance 23 mL/min (70-130); Calcium 9.2 mg/dL (7.8-10.44); Carbon Dioxide 27 mmol/L (23-31); Chloride 104 mmol/L (98-107); Estimated GFR-MDRD 14; Glucose 103 mg/dL (83-110); Potassium 4.9 mmol/L (3.5-5.1); Sodium 140 mmol/L (136-145)
[2018-01-11] MEDS: Mometasone/Formoterol 120 PUFF INHALER INH SCH (07:24)
[2018-01-11] MEDS ORDERED: predniSONE 20 MG TAB PO SCH (08:00)
[2018-01-11] MEDS: Famotidine 20 MG TAB PO SCH (09:24)
[2018-01-11] MEDS: guaiFENesin ER 600 MG TAB PO SCH ×2 (09:24→22:34)
[2018-01-11] MEDS: Nystatin Powder 15 GM BOT TOP SCH ×3 (09:26→22:36)
--- NOTE | 2018-01-11 09:39 | PRG ---
DATE OF SERVICE: 01/11/2018 RENAL MEDICINE SUBJECTIVE: Ms. Rico is an 82-year-old white female admitted for shortness of breath secondary t o chronic obstructive pulmonary disease exacerbation/pneumonia and we are following her up for acute kidney injury. Renal function has been remaining stable. She has received some colloid confusion. This morning, she is complaining of some shortness of breath from her ? of COPD exacerbation. She is getting melania treatment. She has also been on BiPAP. PHYSICAL EXAMINATION: VITAL SIGNS: Blood pressure 171/73, heart rate is 70, respiratory rate 31, temperature 97.6, pulse o x 98%. GENERAL: Awake, alert, in mild respiratory distress. SKIN: Adequate turgor. HEENT: Pinkish conjunctivae, anicteric sclerae. NECK: No neck mass, no carotid bruits, no JVD. CHEST: No deformities. LUNGS: Positive for wheezing. HEART: Normal sinus rhythm. No murmurs, no gallops, no rubs. ABDOMEN: Globular, soft, nontender, no masses. EXTREMITIES: No edema, no deformities. MEDICATIONS: Medications of 01/11/2018 was reviewed. LABORATORY DATA: Laboratories of 01/11/2018; white count 12.8, hemoglobin 10.9. Sodium 140, potassi um 4.9, chloride 104, carbon dioxide 27, BUN 100, creatinine 3.13, glucose is 103, phosphorus 5.0, ca lcium is 9.2, and albumin 4.0. ASSESSMENT AND PLAN: 1. Acute kidney injury on top of her chronic renal failure, stable renal function. Creatinine is no david at 3.1, which is slightly improved from yesterday of 3.19. She seems to be stabilizing her renal dysfunction. No indication for any dialytic intervention. 2. Chronic obstructive pulmonary disease exacerbation/pneumonia on antibiotics and steroids. Lorraine samano is currently on DuoNeb every 2 hours as needed. Continue supportive care. We will be rechecking a basic met and CBC in a.m.
[2018-01-11] MEDS ORDERED: Furosemide 100 MG/10 ML VIAL SLOW IVP SCH (10:30)
--- NOTE | 2018-01-11 10:34 | PRG ---
DATE OF SERVICE: 01/11/2018 SERVICE: Pulmonary Medicine. INTERVAL HISTORY: The patient is doing poorly from a respiratory standpoint. Oxygen requirements have gone up. She has tried a BiPAP break this morning and almost immediately desaturated down in the 70s. Ultimately, she is put back on BiPAP. She is struggling to catch her breath. Otherwise, there are no significant events overnight. PHYSICAL EXAMINATION: VITAL SIGNS: Afebrile, pulse 70, blood pressure 131/73, respirations 31, saturation 98% on 40% FiO2 and PEEP of 9. HEENT: Normocephalic, atraumatic. Sclerae are white, conjunctivae pink. Oral and nasal mucosa is moist without lesions. LUNGS: Crackles are present throughout bilateral lung monreal. There is a prolonged expiratory phase. Wheezing is also present. Rhonchi are there and changed with cough. HEART: Normal rate and regular. ABDOMEN: Soft, nontender, nondistended. Bowel sounds are positive. MUSCULOSKELETAL: No cyanosis or clubbing. There is diffuse pitting throughout. GENITOURINARY: Elliott catheter in place. NEUROLOGIC: Grossly nonfocal. LABORATORY DATA: WBC 12.8, hemoglobin 10.9, and platelets 280,000. Neutrophil count is down trending. INR 2.0. Creatinine 3.13 and stable. BUN 100, sodium 140. Blood culture x2 and influenza are unremarkable. ASSESSMENT: 1. Acute hypoxic respiratory failure. 2. Community-acquired pneumonia. 3. Acute bronchitis. 4. Obstructive sleep apnea, moderate. 5. Acute kidney injury on chronic kidney disease. 6. Volume overload. DISCUSSION AND PLAN: We will give the patient 80 mg of Lasix today. I have titrated the BiPAP at bedside to improve on patient comfort. If she does not tolerate breaks by the end of the day, we will need to intubate her. She is starting to get quite exhausted and my fear is that by leaving her this way for another 24 hours, she will ultimately have respiratory events which I would like to avoid. My anticipation is that we are going to make her a little bit wheat washer. Her sodium and BUN are at the upper limits of right like them. I will initiate very low dose of free water for the next 24 hours. Critical care time: 30 minutes. MTDD
--- NOTE | 2018-01-11 11:43 | PDOC.PN ---
- Subjective Encounter Start Date: 01/11/18 Encounter Start Time: 10:20 pt is in respiratory distress, off bipap she is not tolerating, no fever, - Objective Resuscitation Status: Resuscitation Status FULL:Full Resuscitation MAR Reviewed: Yes Vital Signs & Weight: Vital Signs (12 hours) Temp Pulse Resp BP Pulse Ox 01/11/18 11:08 75 39 H 97 01/11/18 11:06 76 01/11/18 07:51 97.6 F 70 31 H 95 01/11/18 07:44 97.6 F 70 31 H 171/73 H 98 01/11/18 07:26 72 01/11/18 07:24 72 33 H 98 01/11/18 07:23 72 33 H 98 01/11/18 04:33 70 01/11/18 03:58 97.8 F 70 24 H 159/59 H 98 01/11/18 01:39 71 22 H 99 01/11/18 01:15 100 01/11/18 00:00 97.6 F 70 27 H 141/59 H 100 Weight Admit Weight 226 lb 3.2 oz Weight 230 lb 9.6 oz I&O: 01/10/18 01/11/18 01/12/18 06:59 06:59 06:59 Intake Total 2576 910 Output Total 550 975 Balance 2025 Result Diagrams: 01/11/18 05:40 01/11/18 05:40 Additional Labs: Accuchecks 01/11/18 01/10/18 01/10/18 05:37 20:57 16:28 POC Glucose 100 141 H 157 H EKG Reviewed by me: Yes (tachycardia) Phys Exam - Physical Examination respi distress HEENT: PERRLA, moist MMs, sclera anicteric Neck: no JVD, supple Respiratory: wheezing present bilateral coare rales Cardiovascular: RRR, no significant murmur, no rub Gastrointestinal: soft, non-tender, no distention, positive bowel sounds Musculoskeletal: no edema, pulses present Neurological: moves all 4 limbs Lymphatic: no nodes Psychiatric: normal affect Deviation from normal: anxious Skin: no rash, normal turgor Dx/Plan (1) Acute renal failure superimposed on stage 3 chronic kidney disease Code(s): N17.9 - ACUTE KIDNEY FAILURE, UNSPECIFIED; N18.3 - CHRONIC KIDNEY DISEASE, STAGE 3 (MODERATE) Status: Acute (2) Acute respiratory failure with hypoxia and hypercarbia Code(s): J96.01 - ACUTE RESPIRATORY FAILURE WITH HYPOXIA; J96.02 - ACUTE RESPIRATORY FAILURE WITH HYPERCAPNIA Status: Acute (3) Community acquired bacterial pneumonia Code(s): J15.9 - UNSPECIFIED BACTERIAL PNEUMONIA Status: Acute (4) Sepsis with acute organ dysfunction Code(s): A41.9 - SEPSIS, UNSPECIFIED ORGANISM; R65.20 - SEVERE SEPSIS WITHOUT SEPTIC SHOCK Status: Acute (5) Supratherapeutic INR Code(s): R79.1 - ABNORMAL COAGULATION PROFILE Status: Acute Comment: Likely effect of quinolones. Warfarin being held. No signs of bleeding and pt pasymptomatic. (6) Asthma Code(s): J45.909 - UNSPECIFIED ASTHMA, UNCOMPLICATED Status: Chronic Qualifiers: Asthma severity: moderate Asthma complication type: with acute exacerbation Comment: See problem #1 (7) H/O cardiac pacemaker Code(s): Z95.0 - PRESENCE OF CARDIAC PACEMAKER Status: Chronic (8) HTN (hypertension) Code(s): I10 - ESSENTIAL (PRIMARY) HYPERTENSION Status: Chronic Qualifiers: Hypertension type: essential hypertension Qualified Code(s): I10 - Essential (primary) hypertension Comment: Controlled and at goal. Continued on home meds. (9) Obesity (BMI 30-39.9) Code(s): E66.9 - OBESITY, UNSPECIFIED Status: Chronic (10) Paroxysmal atrial fibrillation Code(s): I48.0 - PAROXYSMAL ATRIAL FIBRILLATION Status: Chronic (11) Type 2 diabetes mellitus Status: Chronic Qualifiers: Diabetes mellitus complication status: without complication Diabetes mellitus correction insulin use: without intermodal dispatcher use Qualified Code(s): E11.9 - Type 2 diabetes mellitus without complications Comment: - Plan cont current plan of care, plan discussed w/ family, continue antibiotics, respiratory therapy * continue bipap * continue respiratory therapy * currently on maximum medical therapy * if not improving after trial dose of lasix, she may need intubation * pulmonary on board * medication reviewed as below * symptomatic treatment. * discussed with family bedside * prognosis guarded Review of Systems - Review of Systems Constitutional: weakness, malaise. negative: fever, chills, sweats, other Respiratory: Cough, Shortness of Breath, SOB with Excertion, Wheezing. negative : Dry, Hemoptysis, Pleuritic Pain, Sputum Cardiovascular: negative: chest pain, palpitations, orthopnea, paroxysmal nocturnal dyspnea, edema, light headedness, other Gastrointestinal: negative: Nausea, Vomiting, Abdominal Pain, Diarrhea, Constipation, Melena, Hematochezia, Other Genitourinary: negative: Dysuria, Frequency, Incontinence, Hematuria, Retention , Other Musculoskeletal: negative: Neck Pain, Shoulder Pain, Arm Pain, Back Pain, Hand Pain, Leg Pain, Foot Pain, Other Skin: negative: Rash, Lesions, Lars, Bruising, Other - Medications/Allergies Allergies/Adverse Reactions: Allergies Allergy/AdvReac Type Severity Reaction Status Date / Time No Known Allergies Allergy Verified 04/03/14 10:20 Medications: Current Medications Acetaminophen (Tylenol) 650 mg PO Q4H PRN PRN Reason: Headache/Fever or Pain Last Admin: 01/08/18 21:06 Dose: 650 mg Albuterol/Ipratropium (Duoneb) 3 ml NEB [id number] [facility] Last Admin: 01/11/18 11:08 Dose: 3 ml Albuterol/Ipratropium (Duoneb) 3 ml NEB Q2H PRN PRN Reason: SOB &/or Wheezing Atorvastatin Calcium (Lipitor) 40 mg PO HS [facility] Last Admin: 01/10/18 20:52 Dose: 40 mg Dextrose/Water (Dextrose 50%) 25 gm SLOW IVP PRN PRN PRN Reason: Hypoglycemia Last Admin: 01/07/18 00:09 Dose: 25 gm Famotidine (Pepcid) 20 mg PO DAILY [facility] Last Admin: 01/11/18 09:24 Dose: 20 mg Furosemide (Lasix) 80 mg SLOW IVP 1030 [facility] Stop: 01/11/18 12:00 Last Admin: 01/11/18 10:38 Dose: 80 mg Furosemide (Lasix) 80 mg SLOW IVP DAILY [facility] Glucagon (Glucagon) 1 mg IM PRN PRN PRN Reason: Hypoglycemia Guaifenesin (Mucinex) 1,200 mg PO Q12HR [facility] Last Admin: 01/11/18 09:24 Dose: 1,200 mg Hydralazine HCl (Apresoline) 10 mg SLOW IVP Q4H PRN PRN Reason: SBP Greater Than 180 Dextrose/Water (D5w) 1,000 mls @ 0 mls/hr IV .Q0M PRN; As Directed PRN Reason: Hypoglycemia Cefepime HCl 1 gm/Miscellaneous Medication 1 each/ Sterile Water 10 mls @ 120 mls/hr SLOW IVP 0300,1500 [facility] Last Admin: 01/11/18 03:39 Dose: 10 mls Levofloxacin 750 mg/ Device 150 mls @ 100 mls/hr IVPB Q2DAYS [facility] Last Admin: 01/10/18 12:34 Dose: 150 mls Dextrose/Water (D5w) 1,000 mls @ 50 mls/hr IV .Q20H [facility] Insulin Human Lispro (Humalog) 0 units SC .MILD SLIDING SCALE PRN PRN Reason: Mild Correctional Scale Miscellaneous Medication (Pharmacy To Dose) 1 each PO PRN PRN PRN Reason: Pharmacy to dose Montelukast Sodium (Singulair) 10 mg PO QPM [facility] Last Admin: 01/10/18 20:52 Dose: 10 mg Nystatin (Mycostatin Powder) 0 gm TOP TID [facility] Last Admin: 01/11/18 09:26 Dose: 1 applic Prednisone (Prednisone) 40 mg PO QAM-WM [facility] Stop: 01/14/18 08:01 Last Admin: 01/11/18 09:24 Dose: 40 mg Sodium Chloride (Flush - Normal Saline) 10 ml IVF Q12HR [facility] Last Admin: 01/11/18 09:26 Dose: 10 ml Sodium Chloride (Flush - Normal Saline) 10 ml IVF PRN PRN PRN Reason: Saline Flush Last Admin: 01/08/18 06:09 Dose: 10 ml
[2018-01-11] MEDS: Dextrose 5% in Water 1,000 ML IV SCH (14:23)
[2018-01-11] MEDS: hydrALAZINE 20 MG/ML VIAL SLOW IVP PRN (16:42)
[2018-01-11] MEDS ORDERED: Midazolam HCl 2 mg/2 ml Vial ONE (16:48)
[2018-01-11] MEDS ORDERED: Propofol 1,000 MG/100 ML VIAL IV ONE ×2 (17:03→17:21)
[2018-01-11] MEDS ORDERED: Norepinephrine 8 MG/0.9% NS 250 ML ONE (17:11)
[2018-01-11] MEDS ORDERED: Norepinephrine 8 MG/0.9% NS 250 ML IVPB PRN (17:19)
[2018-01-11] MEDS ORDERED: Lacri-Lube Opth Oint 3.5 GM TUBE EA EYE PRN (17:19)
[2018-01-11] MEDS ORDERED: Sedation Protocol FS ONE (17:19)
[2018-01-11] MEDS ORDERED: DISCONTINUE PREVIOUS NARCOTIC PAIN MEDICATIONS AND BENZODIAZEPINES FS SCH (17:24)
[2018-01-11] MEDS ORDERED: Lorazepam 2 MG/ML VIAL SLOW IVP PRN (17:24)
[2018-01-11] MEDS ORDERED: Fentanyl BOLUS 250 ML IVPB PRN (17:24)
[2018-01-11] MEDS ORDERED: Morphine 4 MG/ML Carpuject SLOW IVP PRN (17:24)
[2018-01-11] MEDS ORDERED: Sodium Chloride 0.9% 1,000 ML IV SCH (17:30)
[2018-01-11] MEDS ORDERED: Midazolam HCl 2 mg/2 ml Vial SLOW IVP SCH (17:30)
[2018-01-11 17:44] LABS: Actual Bicarbonate (HCO3a) 21.2 mEq/L (22-26); CO2 Tension 55.8 mmHg (35.0-45.0); O2 Tension (PaO2) 75.1 mmHg (80.0-100.0)
[2018-01-11 17:45] LABS: Calcium, Ionized 1.2 mmol/L (1.12-1.30); Hematocrit-ABG 34.2 % (36.0-47.0); Hemoglobin (Hb) 10.6 g/dL (12.0-16.0)
[2018-01-11 17:46] LABS: Puncture Site LRA
--- NOTE | 2018-01-11 18:14 | RAD ---
PORTABLE AP CHEST X-RAY 01/11/18 HISTORY: On ventilator. COMPARISON: 01/10/18. FINDINGS: Endotracheal tube is now noted in place with the tip overlying the T5-6 level and above the level of the livan. A right subclavian central venous catheter remains in place and unchanged in position. N asogastric tube has also been placed in the interim which courses into the left upper quadrant. the t ip of which is not imaged. The nasogastric tube is noted to deviate laterally at the level of the mid chest. However, recent CT scan thorax on 01/10/18 noted that the esophagus did deviate laterally cor responding to course of the nasogastric tube on this exam. There has been interval development of mul tifocal alveolar and interstitial opacities greater on the right which may be related to either asymm etric pulmonary edema or infectious process. Vascular calcifications seen in the thoracic aorta. Card iac silhouette and magnified by projection. No other interval change. IMPRESSION: 1. Interval placement of endotracheal tube which is above the level of the livan. 2. Interval placement of a nasogastric tube which courses into the left upper quadrant but the t ip is not seen. 3. Significant interval increase in multifocal interstitial and alveolar opacities throughout th e lungs bilaterally which probably represent multifocal pneumonia; although, asymmetric pulmonary regis ma is a possibility. POS: NARGIS
[2018-01-11 18:22] LABS: Lactic Acid 1.3 mmol/L (0.5-2.2)
[2018-01-11] MEDS: Atorvastatin Calcium 40 MG TAB PO SCH (22:33)
[2018-01-11] MEDS: Propofol 1,000 MG/100 ML VIAL IV PRN (22:37)
[2018-01-12] MEDS: Propofol 1,000 MG/100 ML VIAL IV PRN ×4 (02:31→21:57)
[2018-01-12] MEDS: Cefepime 1 GM, Admixture Fee 1 EACH in Sterile Water 10 ML SLOW IVP SCH ×2 (02:31→15:49)
[2018-01-12 05:02] LABS: #Lymphocytes 0.6 thou/uL (1.20-3.40); #Monocytes 0.6 thou/uL (0.11-0.59); #Neutrophils 10.3 thou/uL (1.40-6.50); %Basophils 0.1 % (0.0-1.0); %Eosinophils 0.1 % (0.0-10.0); %Lymphocytes 5.3 % (21.0-51.0); %Monocytes 5.1 % (0.0-10.0); %Neutrophils 89.4 % (42.0-75.0); Hemoglobin 10.7 g/dL (12.0-16.0); Mean Corpuscular HGB CONC 31.8 g/dL (32.0-36.0); Mean Corpuscular Hemoglobin 27.2 pg (27.0-31.0); Mean Corpuscular Volume 85.4 fl (81.0-99.0); Mean Platelet Volume 8.7 fL (7.4-10.4); Platelet Count 244 thou/uL (130-400); RBC Distribution Width 13.8 % (11.5-14.5); Red Blood Cell (RBC) Count 3.96 mill/uL (4.20-5.40); White Blood Cell (WBC) Count 11.6 thou/uL (4.8-10.8)
[2018-01-12 05:03] LABS: INR-International Normal Ratio 1.8
[2018-01-12 05:23] LABS: Anion Gap 13 mmol/L (10-20); BUN (Urea Nitrogen) 98 mg/dL (9.8-20.1); Calc. Creatinine Clearance 25 mL/min (70-130); Calcium 8.9 mg/dL (7.8-10.44); Carbon Dioxide 24 mmol/L (23-31); Chloride 106 mmol/L (98-107); Estimated GFR-MDRD 16; Glucose 142 mg/dL (83-110); Potassium 4.2 mmol/L (3.5-5.1); Sodium 139 mmol/L (136-145)
[2018-01-12] MEDS: Dextrose 5% in Water 1,000 ML IV SCH ×2 (06:48→13:52)
[2018-01-12] MEDS: guaiFENesin ER 600 MG TAB PO SCH ×2 (08:59→21:57)
[2018-01-12] MEDS: Famotidine 20 MG TAB PO SCH (09:00)
[2018-01-12] MEDS ORDERED: Furosemide 100 MG/10 ML VIAL SLOW IVP SCH (09:00)
[2018-01-12] MEDS: Nystatin Powder 15 GM BOT TOP SCH ×3 (09:00→21:58)
--- NOTE | 2018-01-12 10:01 | PRG ---
DATE OF SERVICE: 01/12/2018 SUBJECTIVE: Ms. Rico is an 82-year-old white female who was seen by the Renal Service for acute kidney injury on top of her chronic renal failure. In the last 24 hours, her pulmonary status worse n. 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 She is currently intubated. She also received a 1 time dose of Lasix yesterday. PHYSICAL EXAMINATION: VITAL SIGNS: Blood pressure 111/59, heart rate 70, respiratory rate 23, pulse ox 100%. GENERAL: Noted to be sedated and intubated on ventilator support. SKIN: Adequate turgor. HEENT: Pinkish conjunctivae, anicteric sclerae. NECK: No neck mass, no carotid bruits, no JVD. CHEST: No deformities. LUNGS: Clear breath sounds. No wheezing, no crackles. HEART: Normal sinus rhythm. No murmur, no gallops or rubs. ABDOMEN: Globular, soft, nontender, no masses. EXTREMITIES: No edema. MEDICATIONS: 01/12/2018 - Reviewed. LABORATORIES: 01/12/2018 - White count 11.6, hemoglobin 10.7, hematocrit 33.8. Sodium 139, potassiu m 4.2, chloride 106, carbon dioxide 24, BUN 98, creatinine 2.9, glucose 142, calcium 8.9. ASSESSMENT AND PLAN: 1. Acute kidney injury on top of her chronic renal failure - slightly improved creatinine at 2.9 and yesterday this was noted at 3.13. Her GFR is 16 mL per minute. No indication for any dialytic inte rvention. Continue current management. 2. Acute respiratory failure - the patient is intubated and placed on ventilator support. Doing bet ter. Oxygenation is noted to be adequate. There is no indication for any dialytic intervention.
--- NOTE | 2018-01-12 10:47 | PRG ---
DATE OF SERVICE: 01/12/2018 SERVICE: Pulmonary Medicine. INTERVAL HISTORY: The patient did poorly yesterday. She ended up requiring endotracheal intubation towards the end of the day, because of increasing altered mentation and respiratory failure. After t he intubation, she had a brief episode of hypotension. This resolved after roughly 15-20 minutes. S he required being on Levophed for a short period of time. This has been subsequently weaned off once again. She cannot provide any additional elements of the history. Otherwise, there were no events overnight. PHYSICAL EXAMINATION: VITAL SIGNS: Afebrile, pulse 70, blood pressure 116/55, respirations 19, saturation 100% on 31% FiO2 and a PEEP of 7. GENERAL: Patient is intubated and sedated. HEENT: Normocephalic, atraumatic. Sclerae are white, conjunctivae pink. Oral and nasal mucosae lazara st without lesions. LUNGS: Decent air entry. There is a prolonged expiratory phase, polyphonic wheezing, and rhonchi al l present. HEART: Normal rate, regular. ABDOMEN: Soft, nontender, nondistended. Bowel sounds are positive. MUSCULOSKELETAL: No cyanosis or clubbing. There is no pitting in the bilateral lower extremities. She has got 1+ pitting at the sacrum. GENITOURINARY: Elliott catheter in place. NEUROLOGIC: Grossly nonfocal. LABORATORY DATA: WBC 11.6, hemoglobin 10.7, platelets 244,000. PH 7.20, pCO2 of 55, pO2 of 75. Lac tineo 1.3. Creatinine continues to trend downward to 2.9 and BUN 98. Basic metabolic profile is, oth erwise, unremarkable. Blood cultures x2 and influenzae are negative. IMAGING: Chest x-ray demonstrates interval placement of an endotracheal tube. There is a gastric fe eding catheter coursing below the level of the diaphragm. There is bilateral pleural and parenchymal opacifications identified. ASSESSMENT: 1. Acute hypoxic respiratory failure. 2. Community-acquired pneumonia, severe. 3. Chronic hypercapnic respiratory failure. 4. Obstructive sleep apnea, severe. 5. Acute bronchitis. 6. Acute kidney injury on chronic kidney disease, stage 3. DISCUSSION AND PLAN: We will give her a very low maintenance dose of fluids. I do think she is tota l volume overload, but because of the BUN of 98, we will introduce just a touch of free water. She w ill remain intubated for the next 24 hours. I will wean oxygen as tolerated. We will switch her ove r to SIMV to turn a little bit more work of breathing over to the patient. In 24 hours, we will cons ider a spontaneous breathing trial following a sedation holiday. Ultimately, I do think that her pne umonia is improving; it is just that she got too tired on the BiPAP. Hopefully, we can extubate her in 24-48 hours. If we cannot, she will likely be too weak to wean and may require tracheostomy versu s transition over to comfort care. She was quite debilitated at baseline. CRITICAL CARE TIME: 30 minutes.
--- NOTE | 2018-01-12 11:27 | PDOC.PN ---
- Subjective Encounter Start Date: 01/12/18 Encounter Start Time: 10:30 -: old records requested/rev pt required intubation yesterday, no fever, on vent - Objective Resuscitation Status: Resuscitation Status FULL:Full Resuscitation MAR Reviewed: Yes Vital Signs & Weight: Vital Signs (12 hours) Temp Pulse Resp BP 01/12/18 10:26 70 01/12/18 08:13 70 01/12/18 08:00 97.9 F 01/12/18 06:00 23 H 01/12/18 04:00 97.9 F 23 H 01/12/18 02:05 70 126/61 01/12/18 02:00 23 H 01/12/18 00:00 98.2 F 23 H Weight Admit Weight 226 lb 3.2 oz Weight 237 lb 3.478 oz Most Recent Monitor Data Heart Rate from ECG 70 NIBP 116/57 NIBP BP-Mean 67 Respiration from ECG 24 SpO2 100 I&O: 01/11/18 01/12/18 01/13/18 06:59 06:59 06:59 Intake Total 910 2383.3 0 Output Total 975 2050 130 Balance -65 333.3 -130 Result Diagrams: 01/12/18 04:30 01/12/18 04:30 Additional Labs: Accuchecks 01/12/18 01/12/18 01/11/18 06:37 00:03 17:53 POC Glucose 139 H 139 H 120 H 01/11/18 01/07/18 11:29 00:05 POC Glucose 115 H 50 L* Radiology Reviewed by me: Yes (chest xray) EKG Reviewed by me: Yes (afib) Phys Exam - Physical Examination Constitutional: NAD intubated, sedated HEENT: moist MMs, sclera anicteric Neck: no JVD, supple Respiratory: no wheezing, no rales, no rhonchi Cardiovascular: no significant murmur, irregular Gastrointestinal: soft, no distention, positive bowel sounds obesity+ Musculoskeletal: no edema, pulses present unable to assess as sedated Lymphatic: no nodes Deviation from normal: unable to assess Skin: no rash, normal turgor Dx/Plan (1) Acute renal failure superimposed on stage 3 chronic kidney disease Code(s): N17.9 - ACUTE KIDNEY FAILURE, UNSPECIFIED; N18.3 - CHRONIC KIDNEY DISEASE, STAGE 3 (MODERATE) Status: Acute (2) Acute respiratory failure with hypoxia and hypercarbia Code(s): J96.01 - ACUTE RESPIRATORY FAILURE WITH HYPOXIA; J96.02 - ACUTE RESPIRATORY FAILURE WITH HYPERCAPNIA Status: Acute (3) Community acquired bacterial pneumonia Code(s): J15.9 - UNSPECIFIED BACTERIAL PNEUMONIA Status: Acute (4) Sepsis with acute organ dysfunction Code(s): A41.9 - SEPSIS, UNSPECIFIED ORGANISM; R65.20 - SEVERE SEPSIS WITHOUT SEPTIC SHOCK Status: Acute (5) Supratherapeutic INR Code(s): R79.1 - ABNORMAL COAGULATION PROFILE Status: Resolved Comment: (6) Asthma Code(s): J45.909 - UNSPECIFIED ASTHMA, UNCOMPLICATED Status: Chronic Qualifiers: Asthma severity: moderate Asthma complication type: with acute exacerbation Comment: See problem #1 (7) H/O cardiac pacemaker Code(s): Z95.0 - PRESENCE OF CARDIAC PACEMAKER Status: Chronic (8) HTN (hypertension) Code(s): I10 - ESSENTIAL (PRIMARY) HYPERTENSION Status: Chronic Qualifiers: Hypertension type: essential hypertension Qualified Code(s): I10 - Essential (primary) hypertension Comment: Controlled and at goal. Continued on home meds. (9) Obesity (BMI 30-39.9) Code(s): E66.9 - OBESITY, UNSPECIFIED Status: Chronic (10) Paroxysmal atrial fibrillation Code(s): I48.0 - PAROXYSMAL ATRIAL FIBRILLATION Status: Chronic (11) Type 2 diabetes mellitus Status: Chronic Qualifiers: Diabetes mellitus complication status: without complication Diabetes mellitus mcfp insulin use: without mcfp use Qualified Code(s): E11.9 - Type 2 diabetes mellitus without complications Comment: (12) CLEMENCIA (obstructive sleep apnea) Code(s): G47.33 - OBSTRUCTIVE SLEEP APNEA (ADULT) (PEDIATRIC) Status: Chronic (13) Acute bronchitis Code(s): J20.9 - ACUTE BRONCHITIS, UNSPECIFIED Status: Acute - Plan cont current plan of care, continue antibiotics, respiratory therapy * continue current IV antibiotics, cefepime, levaquin * continue solumedrol * vent as per pulmonary * medication reviewed as below * symptomatic treatment. Review of Systems - Review of Systems Other: unable to review due to intubated status - Medications/Allergies Allergies/Adverse Reactions: Allergies Allergy/AdvReac Type Severity Reaction Status Date / Time No Known Allergies Allergy Verified 05/06/14 10:20 Medications: Current Medications Acetaminophen (Tylenol) 650 mg PO Q4H PRN PRN Reason: Headache/Fever or Pain Last Admin: 01/08/18 21:06 Dose: 650 mg Albuterol/Ipratropium (Duoneb) 3 ml NEB [id number] [facility] Last Admin: 01/12/18 10:26 Dose: 3 ml Albuterol/Ipratropium (Duoneb) 3 ml NEB Q2H PRN PRN Reason: SOB &/or Wheezing Atorvastatin Calcium (Lipitor) 40 mg PO HS [facility] Last Admin: 01/11/18 22:33 Dose: 40 mg Dextrose/Water (Dextrose 50%) 25 gm SLOW IVP PRN PRN PRN Reason: Hypoglycemia Last Admin: 01/07/18 00:09 Dose: 25 gm Famotidine (Pepcid) 20 mg PO DAILY [facility] Last Admin: 01/12/18 09:00 Dose: 20 mg Glucagon (Glucagon) 1 mg IM PRN PRN PRN Reason: Hypoglycemia Guaifenesin (Mucinex) 1,200 mg PO Q12HR [facility] Last Admin: 01/12/18 08:59 Dose: 1,200 mg Hydralazine HCl (Apresoline) 20 mg SLOW IVP Q15MIN PRN PRN Reason: SBP>180 Last Admin: 01/11/18 16:42 Dose: 20 mg Dextrose/Water (D5w) 1,000 mls @ 0 mls/hr IV .Q0M PRN; As Directed PRN Reason: Hypoglycemia Cefepime HCl 1 gm/Miscellaneous Medication 1 each/ Sterile Water 10 mls @ 120 mls/hr SLOW IVP 0300,1500 [facility] Last Admin: 01/12/18 02:31 Dose: 10 mls Levofloxacin 750 mg/ Device 150 mls @ 100 mls/hr IVPB Q2DAYS [facility] Last Admin: 01/12/18 08:58 Dose: 150 mls Dextrose/Water (D5w) 1,000 mls @ 50 mls/hr IV .Q20H [facility] Last Admin: 01/12/18 06:48 Dose: Not Given Norepinephrine Bitartrate (Levophed) 250 mls @ 0 mls/hr IVPB PRN PRN; Protocol ; Titrate PRN Reason: To maintain MAP > 65 Fentanyl Citrate (Fentanyl Bolus) 250 mls @ 0 mls/hr IVPB PRN PRN; As Directed PRN Reason: Breakthrough pain Stop: 02/10/18 17:24 Insulin Human Lispro (Humalog) 0 units SC .MILD SLIDING SCALE PRN PRN Reason: Mild Correctional Scale Methylprednisolone Sodium Succinate (Solu-Medrol) 20 mg IVP Q8HR [facility] Last Admin: 01/12/18 06:48 Dose: 20 mg Mineral Oil/White Petrolatum (Lacri-Lube Ointment) 0 gm EA EYE PRN PRN PRN Reason: Dry Eyes Discontinue Previous Narcotic Pain Medications And Benzodiazepines 1 each FS .ONE [facility] Stop: 02/10/18 17:24 Nystatin (Mycostatin Powder) 0 gm TOP TID [facility] Last Admin: 01/12/18 09:00 Dose: 1 applic Propofol (Diprivan) 1,000 mg IV INF PRN; Protocol PRN Reason: TO ACHIEVE ISBELL SCORE 2-3 Stop: 02/10/18 17:24 Last Admin: 01/12/18 06:51 Dose: 1,000 mg Sodium Chloride (Flush - Normal Saline) 10 ml IVF Q12HR [facility] Last Admin: 01/12/18 09:05 Dose: 10 ml Sodium Chloride (Flush - Normal Saline) 10 ml IVF PRN PRN PRN Reason: Saline Flush Last Admin: 01/08/18 06:09 Dose: 10 ml
--- NOTE | 2018-01-12 18:13 | OP ---
DATE OF SERVICE: 01/12/2018 SERVICE: Pulmonary Medicine. PROCEDURE: Emergent endotracheal intubation. CONSENT: The procedure was performed emergently, but the risks and benefits, performing this procedu re were discussed with the patient's daughter immediately before initiating this procedure. STAFF PHYSICIAN: William Talavera M.D. MEDICATIONS USED: 1. Versed 2 mg IV push. 2. Etomidate 4 mg IV push. PREPROCEDURE DIAGNOSES: 1. Acute hypoxic respiratory failure. 2. Metabolic encephalopathy. POSTPROCEDURE DIAGNOSES: 1. Acute hypoxic respiratory failure. 2. Metabolic encephalopathy. DESCRIPTION OF PROCEDURE: Vital sign monitoring was accomplished by noninvasive hemodynamic monitori ng, pulse oximetry, and telemetry. In the supine position, the patient was preoxygenated with BiPAP and maintain with saturations of 100 %. Following induction of anesthesia, a GlideScope was inserted through the mouth offering clear jayashree ntification of the posterior oropharynx and laryngeal structures with a grade I view. An endotrachea l tube was visualized passing through the vocal cords. Placement was confirmed by condensation in th e endotracheal tube, colorimetric capnography, and biaxillary chest auscultation. Endotracheal tube was secured at 24 cm, measured at the gums. The patient was placed on mechanical ventilation with go od return of volumes. Post-procedure chest x-ray revealed good location for the endotracheal tube in the trachea. ESTIMATED BLOOD LOSS: None. COMPLICATIONS: Hypotension, immediately following the procedure with requiring a brief episode of pr essors.
[2018-01-12] MEDS: Atorvastatin Calcium 40 MG TAB PO SCH (21:57)
[2018-01-13] MEDS: Propofol 1,000 MG/100 ML VIAL IV PRN ×5 (02:09→21:05)
[2018-01-13] MEDS: Cefepime 1 GM, Admixture Fee 1 EACH in Sterile Water 10 ML SLOW IVP SCH ×2 (03:46→14:00)
[2018-01-13 07:55] LABS: Actual Bicarbonate (HCO3a) 22.1 mEq/L (22-26); Base Excess (BEa) -1.4 mEq/L (0 (+/-) 2.5); CO2 Tension 32.9 mmHg (35.0-45.0); O2 Tension (PaO2) 74.3 mmHg (80.0-100.0); pH, Arterial 7.44 (7.35-7.45)
[2018-01-13 07:56] LABS: ALV-art Gradient 77.085 (0-20); Calcium, Ionized 1.2 mmol/L (1.12-1.30); Hematocrit-ABG 34.5 % (36.0-47.0); Puncture Site RRA
[2018-01-13] MEDS: guaiFENesin ER 600 MG TAB PO SCH ×2 (09:23→19:54)
[2018-01-13] MEDS: Nystatin Powder 15 GM BOT TOP SCH ×3 (09:23→19:55)
[2018-01-13] MEDS: Famotidine 20 MG TAB PO SCH (09:23)
[2018-01-13 09:47] LABS: Anion Gap 15 mmol/L (10-20); BUN (Urea Nitrogen) 95 mg/dL (9.8-20.1); Calc. Creatinine Clearance 32 mL/min (70-130); Calcium 9.3 mg/dL (7.8-10.44); Carbon Dioxide 23 mmol/L (23-31); Chloride 105 mmol/L (98-107); Estimated GFR-MDRD 20; Glucose 177 mg/dL (83-110); Magnesium 2.5 mg/dL (1.6-2.6); Potassium 4.6 mmol/L (3.5-5.1); Sodium 138 mmol/L (136-145)
--- NOTE | 2018-01-13 09:54 | PRG ---
DATE OF SERVICE: 01/13/2018 SUBJECTIVE: Ms. Rico is an 82-year-old white female who was seen by the Renal Service for acute kidney injury on top of chronic renal failure. In the interim she developed acute respiratory failur e. She is now intubated on ventilator support. Over the last 24-48 hours renal function has been st abilizing. PHYSICAL EXAMINATION: VITAL SIGNS: Blood pressure is 156/84, heart rate 70, respiratory rate 17, pulse ox 98%. GENERAL: Intubated on CPAP - arousable. SKIN: Adequate turgor. HEENT: She has pinkish conjunctivae, anicteric sclerae. NECK: No neck mass, no carotid bruits, no JVD. CHEST: No deformities. LUNGS: Decreased breath sounds. Occasional wheezing. HEART: Normal sinus rhythm. No murmurs, no gallops or rubs. ABDOMEN: Globular, soft, nontender, no masses. EXTREMITIES: Trace edema. MEDICATIONS: 01/13/2018 - Reviewed. LABORATORY: 01/13/2018 - Glucose 169. 01/12/2018 - Sodium 139, potassium 4.2, chloride 106, carbon dioxide 24, BUN 98, creatinine 2.9. White count 11.6, hemoglobin 10.7. ASSESSMENT AND PLAN: 1. Acute kidney injury on top of her chronic renal failure, stabilizing renal function. Our plan is to recheck another base met tomorrow. There is no indication for any dialytic intervention with thi s patient. 2. Acute respiratory failure, currently intubated on ventilator support. The patient is receiving a nti-COPD meds. She has been empirically treated with antibiotics at the same time. Overall, prognosis remains guarded. Case discussed with the daughter. Recheck basic metabolic panel and CBC in a.m.
[2018-01-13] MEDS: Carvedilol 6.25 MG TAB PO SCH ×2 (10:36→19:54)
--- NOTE | 2018-01-13 10:58 | PDOC.PN ---
- Subjective Encounter Start Date: 01/13/18 Encounter Start Time: 09:45 pt is intubated and sedated - Objective Resuscitation Status: Resuscitation Status FULL:Full Resuscitation MAR Reviewed: Yes Vital Signs & Weight: Vital Signs (12 hours) Temp Pulse Resp BP Pulse Ox 01/13/18 10:36 125/57 L 01/13/18 10:00 17 01/13/18 09:44 70 01/13/18 09:00 29 H 01/13/18 08:00 97.8 F 70 21 H 100 01/13/18 07:49 70 01/13/18 06:00 98.5 F 19 01/13/18 04:00 98.5 F 19 01/13/18 02:30 70 01/13/18 02:00 19 01/13/18 00:00 98.0 F 19 Weight Admit Weight 226 lb 3.2 oz Weight 240 lb 4.862 oz Most Recent Monitor Data Heart Rate from ECG 70 NIBP 210/65 NIBP BP-Mean 111 Respiration from ECG 29 SpO2 97 I&O: 01/12/18 01/13/18 01/14/18 06:59 06:59 06:59 Intake Total 2383.3 1498 0 Output Total 2050 1630 200 Balance 333.3 -132 -200 Result Diagrams: 01/12/18 04:30 01/13/18 09:20 Additional Labs: Accuchecks 01/13/18 01/12/18 01/12/18 06:50 21:31 17:34 POC Glucose 169 H 136 H 127 H 01/12/18 12:07 POC Glucose 127 H Phys Exam - Physical Examination Constitutional: NAD intubated and sedated HEENT: PERRLA, sclera anicteric Neck: no JVD, supple Respiratory: no wheezing, no rales, no rhonchi Cardiovascular: RRR, no significant murmur, no rub Gastrointestinal: soft, no distention, positive bowel sounds Musculoskeletal: no edema, pulses present Lymphatic: no nodes Skin: no rash, normal turgor Dx/Plan (1) Acute renal failure superimposed on stage 3 chronic kidney disease Code(s): N17.9 - ACUTE KIDNEY FAILURE, UNSPECIFIED; N18.3 - CHRONIC KIDNEY DISEASE, STAGE 3 (MODERATE) Status: Acute (2) Acute respiratory failure with hypoxia and hypercarbia Code(s): J96.01 - ACUTE RESPIRATORY FAILURE WITH HYPOXIA; J96.02 - ACUTE RESPIRATORY FAILURE WITH HYPERCAPNIA Status: Acute (3) Community acquired bacterial pneumonia Code(s): J15.9 - UNSPECIFIED BACTERIAL PNEUMONIA Status: Acute (4) Sepsis with acute organ dysfunction Code(s): A41.9 - SEPSIS, UNSPECIFIED ORGANISM; R65.20 - SEVERE SEPSIS WITHOUT SEPTIC SHOCK Status: Acute (5) Supratherapeutic INR Code(s): R79.1 - ABNORMAL COAGULATION PROFILE Status: Resolved Comment: (6) Asthma Code(s): J45.909 - UNSPECIFIED ASTHMA, UNCOMPLICATED Status: Chronic Qualifiers: Asthma severity: moderate Asthma complication type: with acute exacerbation Comment: See problem #1 (7) H/O cardiac pacemaker Code(s): Z95.0 - PRESENCE OF CARDIAC PACEMAKER Status: Chronic (8) HTN (hypertension) Code(s): I10 - ESSENTIAL (PRIMARY) HYPERTENSION Status: Chronic Qualifiers: Hypertension type: essential hypertension Qualified Code(s): I10 - Essential (primary) hypertension Comment: Controlled and at goal. Continued on home meds. (9) Obesity (BMI 30-39.9) Code(s): E66.9 - OBESITY, UNSPECIFIED Status: Chronic (10) Paroxysmal atrial fibrillation Code(s): I48.0 - PAROXYSMAL ATRIAL FIBRILLATION Status: Chronic (11) Type 2 diabetes mellitus Status: Chronic Qualifiers: Diabetes mellitus complication status: without complication Diabetes mellitus fpc insulin use: without bed bug exterminator use Qualified Code(s): E11.9 - Type 2 diabetes mellitus without complications Comment: - Plan cont current plan of care, continue antibiotics, respiratory therapy * continue vent management as per pulmonary * medication reviewed as below * symptomatic treatment * continue current iv antibiotics. Review of Systems - Review of Systems Other: unable to review due to intubated status - Medications/Allergies Allergies/Adverse Reactions: Allergies Allergy/AdvReac Type Severity Reaction Status Date / Time No Known Allergies Allergy Verified 04/03/14 10:20 Medications: Current Medications Acetaminophen (Tylenol) 650 mg PO Q4H PRN PRN Reason: Headache/Fever or Pain Last Admin: 01/08/18 21:06 Dose: 650 mg Albuterol/Ipratropium (Duoneb) 3 ml NEB [id number] [facility] Last Admin: 01/13/18 09:48 Dose: 3 ml Albuterol/Ipratropium (Duoneb) 3 ml NEB Q2H PRN PRN Reason: SOB &/or Wheezing Atorvastatin Calcium (Lipitor) 40 mg PO HS [facility] Last Admin: 01/12/18 21:57 Dose: 40 mg Carvedilol (Coreg) 12.5 mg PO BID [facility] Last Admin: 01/13/18 10:36 Dose: 12.5 mg Dextrose/Water (Dextrose 50%) 25 gm SLOW IVP PRN PRN PRN Reason: Hypoglycemia Last Admin: 01/07/18 00:09 Dose: 25 gm Famotidine (Pepcid) 20 mg PO DAILY [facility] Last Admin: 01/13/18 09:23 Dose: 20 mg Glucagon (Glucagon) 1 mg IM PRN PRN PRN Reason: Hypoglycemia Guaifenesin (Mucinex) 1,200 mg PO Q12HR [facility] Last Admin: 01/13/18 09:23 Dose: Not Given Heparin Sodium (Porcine) (Heparin) 5,000 units SC TID [facility] Hydralazine HCl (Apresoline) 20 mg SLOW IVP Q15MIN PRN PRN Reason: SBP>180 Last Admin: 01/11/18 16:42 Dose: 20 mg Dextrose/Water (D5w) 1,000 mls @ 0 mls/hr IV .Q0M PRN; As Directed PRN Reason: Hypoglycemia Cefepime HCl 1 gm/Miscellaneous Medication 1 each/ Sterile Water 10 mls @ 120 mls/hr SLOW IVP 0300,1500 [facility] Last Admin: 01/13/18 03:46 Dose: 10 mls Levofloxacin 750 mg/ Device 150 mls @ 100 mls/hr IVPB Q2DAYS [facility] Last Admin: 01/12/18 08:58 Dose: 150 mls Dextrose/Water (D5w) 1,000 mls @ 50 mls/hr IV .Q20H [facility] Last Admin: 01/12/18 13:52 Dose: 1,000 mls Norepinephrine Bitartrate (Levophed) 250 mls @ 0 mls/hr IVPB PRN PRN; Protocol ; Titrate PRN Reason: To maintain MAP > 65 Fentanyl Citrate (Fentanyl Bolus) 250 mls @ 0 mls/hr IVPB PRN PRN; As Directed PRN Reason: Breakthrough pain Stop: 02/10/18 17:24 Insulin Human Lispro (Humalog) 0 units SC .MILD SLIDING SCALE PRN PRN Reason: Mild Correctional Scale Methylprednisolone Sodium Succinate (Solu-Medrol) 20 mg IVP Q8HR [facility] Last Admin: 01/13/18 06:45 Dose: 20 mg Mineral Oil/White Petrolatum (Lacri-Lube Ointment) 0 gm EA EYE PRN PRN PRN Reason: Dry Eyes Discontinue Previous Narcotic Pain Medications And Benzodiazepines 1 each FS .ONE [facility] Stop: 02/10/18 17:24 Nystatin (Mycostatin Powder) 0 gm TOP TID [facility] Last Admin: 01/13/18 09:23 Dose: 1 applic Propofol (Diprivan) 1,000 mg IV INF PRN; Protocol PRN Reason: TO ACHIEVE ISBELL SCORE 2-3 Stop: 02/10/18 17:24 Last Admin: 01/13/18 10:37 Dose: 1,000 mg Sodium Chloride (Flush - Normal Saline) 10 ml IVF Q12HR [facility] Last Admin: 01/13/18 09:24 Dose: 10 ml Sodium Chloride (Flush - Normal Saline) 10 ml IVF PRN PRN PRN Reason: Saline Flush Last Admin: 01/08/18 06:09 Dose: 10 ml
[2018-01-13] MEDS: HumaLOG 300 UNITS/3 ML VIAL SC PRN ×3 (11:06→21:05)
--- NOTE | 2018-01-13 11:28 | PRG ---
DATE OF SERVICE: 01/13/2018 SERVICE: Pulmonary Medicine. INTERVAL HISTORY: The patient is doing really well from respiratory standpoint. She is breathing co mfortably. She is on a sedation holiday and on spontaneous breathing trial. She did fairly well wit h this and her blood pressure shot up to 210s. She became a little bit more tachypneic and had incre ased work of breathing. We put her back on mechanical ventilation and she settled down a little bit. We are going to give some blood pressure medications onboard. She denies any current fevers. Ther e were no overnight events. PHYSICAL EXAMINATION: VITAL SIGNS: Afebrile, pulse 70, blood pressure 156/84, respirations 29, saturation 98% on 23% FiO2 and PEEP of 5. GENERAL: The patient is awake, alert, no apparent distress. LUNGS: Decent air entry. There are crackles present. No prolonged expiratory phase, wheezing, or r honchi are appreciated. HEART: Normal rate, regular. ABDOMEN: Soft, nontender, nondistended. Bowel sounds are positive. MUSCULOSKELETAL: No cyanosis or clubbing. No pitting in the bilateral lower extremities. NEUROLOGIC: Grossly nonfocal. LABORATORY DATA: PH 7.44, pCO2 33, pO2 74. This was on 23% FiO2 corresponding to saturation 96%. C reatinine 2.36 and beautifully down trending. Sodium 138, potassium 4.6, chloride 105. Magnesium an d phosphorus fall within the normal limits. Blood cultures x2 and influenza are negative. ASSESSMENT: 1. Acute hypoxic respiratory failure. 2. Community-acquired pneumonia, severe. 3. Chronic hypercapnic respiratory failure. 4. Obstructive sleep apnea, severe. 5. Acute bronchitis. 6. Acute kidney injury on chronic kidney disease, stage 3. DISCUSSION, AND PLAN: We are going to put the patient back on mechanical ventilation as she failed C PAP trial because of elevated blood pressures. We are going to initiate some Coreg. She can have he r home lisinopril at this time because of her kidney injury. I will initiate some DVT prophylaxis. We will repeat chemistries tomorrow morning and hopefully BUN will start to go down. I will turn mor e work of breathing over to the patient today by dropping her rate and dropping her pressure support. I do think she is moving in the right direction. I just do not know whether or not she is going to be strong enough to tolerate extubation in 24 hours. Hopefully, she will. Because if she does not, we will either need to transition over to comfort care or entertain the possibility to tracheostomy. CRITICAL CARE TIME: 30 minutes.
[2018-01-13] MEDS: Heparin 5,000 UNITS/ML VIAL SC SCH ×2 (14:00→19:55)
[2018-01-13] MEDS: Atorvastatin Calcium 40 MG TAB PO SCH (19:54)
[2018-01-13] MEDS: Dextrose 5% in Water 1,000 ML IV SCH (22:46)
[2018-01-14] MEDS: Propofol 1,000 MG/100 ML VIAL IV PRN ×4 (01:07→22:39)
[2018-01-14] MEDS: Cefepime 1 GM, Admixture Fee 1 EACH in Sterile Water 10 ML SLOW IVP SCH ×2 (02:21→14:30)
[2018-01-14] MEDS: Dextrose 5% in Water 1,000 ML IV SCH (05:13)
[2018-01-14 05:47] LABS: #Lymphocytes 0.7 thou/uL (1.20-3.40); #Monocytes 0.7 thou/uL (0.11-0.59); #Neutrophils 11.7 thou/uL (1.40-6.50); %Eosinophils 0.3 % (0.0-10.0); %Lymphocytes 5.2 % (21.0-51.0); %Monocytes 5.1 % (0.0-10.0); %Neutrophils 89.5 % (42.0-75.0); Hemoglobin 11.2 g/dL (12.0-16.0); Mean Corpuscular HGB CONC 32.7 g/dL (32.0-36.0); Mean Corpuscular Hemoglobin 27.3 pg (27.0-31.0); Mean Corpuscular Volume 83.7 fl (81.0-99.0); Mean Platelet Volume 8.9 fL (7.4-10.4); Platelet Count 256 thou/uL (130-400); RBC Distribution Width 13.8 % (11.5-14.5); Red Blood Cell (RBC) Count 4.12 mill/uL (4.20-5.40); White Blood Cell (WBC) Count 13.1 thou/uL (4.8-10.8)
[2018-01-14] MEDS: HumaLOG 300 UNITS/3 ML VIAL SC PRN ×4 (06:08→20:15)
[2018-01-14 06:37] LABS: Anion Gap 13 mmol/L (10-20); BUN (Urea Nitrogen) 98 mg/dL (9.8-20.1); Calc. Creatinine Clearance 37 mL/min (70-130); Calcium 8.9 mg/dL (7.8-10.44); Carbon Dioxide 24 mmol/L (23-31); Chloride 104 mmol/L (98-107); Estimated GFR-MDRD 24; Glucose 242 mg/dL (83-110); Potassium 4.7 mmol/L (3.5-5.1); Sodium 136 mmol/L (136-145)
[2018-01-14] MEDS: Carvedilol 6.25 MG TAB PO SCH (07:19)
[2018-01-14] MEDS: Famotidine 20 MG TAB PO SCH (07:19)
[2018-01-14] MEDS: guaiFENesin ER 600 MG TAB PO SCH ×2 (07:20→20:10)
[2018-01-14] MEDS: Heparin 5,000 UNITS/ML VIAL SC SCH ×3 (08:45→20:14)
[2018-01-14] MEDS: Nystatin Powder 15 GM BOT TOP SCH ×3 (08:49→20:15)
[2018-01-14] MEDS: hydrALAZINE 20 MG/ML VIAL SLOW IVP PRN ×2 (09:26→16:37)
--- NOTE | 2018-01-14 10:20 | PDOC.PN ---
- Subjective Encounter Start Date: 01/14/18 Encounter Start Time: 10:10 Patient seen and examined. No new complaints. No overnight events - Objective Resuscitation Status: Resuscitation Status FULL:Full Resuscitation MAR Reviewed: Yes Vital Signs & Weight: Vital Signs (12 hours) Temp Pulse Resp BP Pulse Ox 01/14/18 10:00 25 H 01/14/18 09:26 70 180/78 H 01/14/18 08:00 97.9 F 70 24 H 98 01/14/18 07:19 140/62 01/14/18 07:13 70 140/62 01/14/18 07:12 72 17 99 01/14/18 07:00 97.9 F 01/14/18 06:00 21 H 01/14/18 04:37 70 01/14/18 04:00 17 01/14/18 03:00 98.4 F 01/14/18 02:00 26 H 01/14/18 00:00 17 01/13/18 23:00 97.8 F 01/13/18 22:44 70 154/64 H Weight Admit Weight 226 lb 3.2 oz Weight 236 lb 5.369 oz Most Recent Monitor Data Heart Rate from ECG 70 NIBP 143/56 NIBP BP-Mean 81 Respiration from ECG 20 SpO2 98 I&O: 01/13/18 01/14/18 01/15/18 06:59 06:59 06:59 Intake Total 1498 2456 50 Output Total 1630 1940 350 Balance -132 516 -300 Result Diagrams: 01/14/18 05:30 01/14/18 05:30 Additional Labs: Accuchecks 01/14/18 01/14/18 01/13/18 09:47 06:08 20:23 POC Glucose 224 H 238 H 161 H 01/13/18 15:34 POC Glucose 184 H EKG Reviewed by me: Yes (afib) Phys Exam - Physical Examination Constitutional: NAD intubated and sedated HEENT: PERRLA, sclera anicteric Neck: no JVD, supple Respiratory: no wheezing, no rales, no rhonchi Cardiovascular: no significant murmur, irregular Gastrointestinal: soft, non-tender, no distention, positive bowel sounds Musculoskeletal: no edema, pulses present scd+ Lymphatic: no nodes Skin: no rash, normal turgor Dx/Plan (1) Acute renal failure superimposed on stage 3 chronic kidney disease Code(s): N17.9 - ACUTE KIDNEY FAILURE, UNSPECIFIED; N18.3 - CHRONIC KIDNEY DISEASE, STAGE 3 (MODERATE) Status: Acute (2) Acute respiratory failure with hypoxia and hypercarbia Code(s): J96.01 - ACUTE RESPIRATORY FAILURE WITH HYPOXIA; J96.02 - ACUTE RESPIRATORY FAILURE WITH HYPERCAPNIA Status: Acute (3) Community acquired bacterial pneumonia Code(s): J15.9 - UNSPECIFIED BACTERIAL PNEUMONIA Status: Acute (4) Sepsis with acute organ dysfunction Code(s): A41.9 - SEPSIS, UNSPECIFIED ORGANISM; R65.20 - SEVERE SEPSIS WITHOUT SEPTIC SHOCK Status: Acute (5) Supratherapeutic INR Code(s): R79.1 - ABNORMAL COAGULATION PROFILE Status: Resolved Comment: (6) Asthma Code(s): J45.909 - UNSPECIFIED ASTHMA, UNCOMPLICATED Status: Chronic Qualifiers: Asthma severity: moderate Asthma complication type: with acute exacerbation Comment: See problem #1 (7) H/O cardiac pacemaker Code(s): Z95.0 - PRESENCE OF CARDIAC PACEMAKER Status: Chronic (8) HTN (hypertension) Code(s): I10 - ESSENTIAL (PRIMARY) HYPERTENSION Status: Chronic Qualifiers: Hypertension type: essential hypertension Qualified Code(s): I10 - Essential (primary) hypertension Comment: Controlled and at goal. Continued on home meds. (9) Obesity (BMI 30-39.9) Code(s): E66.9 - OBESITY, UNSPECIFIED Status: Chronic (10) Paroxysmal atrial fibrillation Code(s): I48.0 - PAROXYSMAL ATRIAL FIBRILLATION Status: Chronic (11) Type 2 diabetes mellitus Status: Chronic Qualifiers: Diabetes mellitus complication status: without complication Diabetes mellitus long term care phlebotomist insulin use: without long term care phlebotomist use Qualified Code(s): E11.9 - Type 2 diabetes mellitus without complications Comment: - Plan cont current plan of care, continue antibiotics, respiratory therapy * continue vent management per pulmonary * medication reviewed as below * symptomatic treatment * continue current IV antibiotics * currently not weanble. Review of Systems - Review of Systems Other: unable to review due to intubated status - Medications/Allergies Allergies/Adverse Reactions: Allergies Allergy/AdvReac Type Severity Reaction Status Date / Time No Known Allergies Allergy Verified 04/03/14 10:20 Medications: Current Medications Acetaminophen (Tylenol) 650 mg PO Q4H PRN PRN Reason: Headache/Fever or Pain Last Admin: 01/08/18 21:06 Dose: 650 mg Albuterol/Ipratropium (Duoneb) 3 ml NEB [id number] [facility] Last Admin: 01/14/18 07:12 Dose: 3 ml Albuterol/Ipratropium (Duoneb) 3 ml NEB Q2H PRN PRN Reason: SOB &/or Wheezing Atorvastatin Calcium (Lipitor) 40 mg PO HS [facility] Last Admin: 01/13/18 19:54 Dose: 40 mg Carvedilol (Coreg) 12.5 mg PO BID [facility] Last Admin: 01/14/18 07:19 Dose: 12.5 mg Dextrose/Water (Dextrose 50%) 25 gm SLOW IVP PRN PRN PRN Reason: Hypoglycemia Last Admin: 01/07/18 00:09 Dose: 25 gm Famotidine (Pepcid) 20 mg PO DAILY [facility] Last Admin: 01/14/18 07:19 Dose: 20 mg Glucagon (Glucagon) 1 mg IM PRN PRN PRN Reason: Hypoglycemia Guaifenesin (Mucinex) 1,200 mg PO Q12HR [facility] Last Admin: 01/14/18 07:20 Dose: Not Given Heparin Sodium (Porcine) (Heparin) 5,000 units SC TID [facility] Last Admin: 01/14/18 08:45 Dose: 5,000 units Hydralazine HCl (Apresoline) 20 mg SLOW IVP Q15MIN PRN PRN Reason: SBP>180 Last Admin: 01/14/18 09:26 Dose: 20 mg Dextrose/Water (D5w) 1,000 mls @ 0 mls/hr IV .Q0M PRN; As Directed PRN Reason: Hypoglycemia Cefepime HCl 1 gm/Miscellaneous Medication 1 each/ Sterile Water 10 mls @ 120 mls/hr SLOW IVP 0300,1500 [facility] Last Admin: 01/14/18 02:21 Dose: 10 mls Levofloxacin 750 mg/ Device 150 mls @ 100 mls/hr IVPB Q2DAYS [facility] Last Admin: 01/14/18 09:19 Dose: 150 mls Dextrose/Water (D5w) 1,000 mls @ 50 mls/hr IV .Q20H [facility] Last Admin: 01/14/18 05:13 Dose: 1,000 mls Norepinephrine Bitartrate (Levophed) 250 mls @ 0 mls/hr IVPB PRN PRN; Protocol ; Titrate PRN Reason: To maintain MAP > 65 Fentanyl Citrate (Fentanyl Bolus) 250 mls @ 0 mls/hr IVPB PRN PRN; As Directed PRN Reason: Breakthrough pain Stop: 02/10/18 17:24 Insulin Human Lispro (Humalog) 0 units SC .MILD SLIDING SCALE PRN PRN Reason: Mild Correctional Scale Last Admin: 01/14/18 09:47 Dose: 3 unit Methylprednisolone Sodium Succinate (Solu-Medrol) 20 mg IVP Q8HR [facility] Last Admin: 01/14/18 05:08 Dose: 20 mg Mineral Oil/White Petrolatum (Lacri-Lube Ointment) 0 gm EA EYE PRN PRN PRN Reason: Dry Eyes Nystatin (Mycostatin Powder) 0 gm TOP TID [facility] Last Admin: 01/14/18 08:49 Dose: 1 applic Propofol (Diprivan) 1,000 mg IV INF PRN; Protocol PRN Reason: TO ACHIEVE ISBELL SCORE 2-3 Stop: 02/10/18 17:24 Last Admin: 01/14/18 05:09 Dose: 1,000 mg Sodium Chloride (Flush - Normal Saline) 10 ml IVF Q12HR [facility] Last Admin: 01/14/18 08:45 Dose: 10 ml Sodium Chloride (Flush - Normal Saline) 10 ml IVF PRN PRN PRN Reason: Saline Flush Last Admin: 01/08/18 06:09 Dose: 10 ml
--- NOTE | 2018-01-14 16:41 | PRG ---
DATE OF SERVICE: 01/14/2018 SUBJECTIVE: Ms. Rico is an 82-year-old white female who was seen by the Renal Service for acute kidney injury secondary to prerenal azotemia. She probably had COPD exacerbation as well as some mil d CHF. She has been intubated. Currently, she is on BiPAP. She is awake and arousable. OBJECTIVE: GENERAL: Awake, intubated on BiPAP. SKIN: Adequate turgor. HEENT: Pinkish conjunctivae, anicteric sclerae. NECK: No neck mass, no carotid bruits, no JVD. CHEST: No deformities. LUNGS: Decreased breath sounds. Occasional wheezing. HEART: Normal sinus rhythm. No murmur, no gallops, no rubs. ABDOMEN: Globular, soft, nontender. EXTREMITIES: No edema or deformities. MEDICATIONS: Medications of 01/14/2018 was reviewed. LABORATORY DATA: Laboratories of 01/14/2018; white count 13.1, hemoglobin 11.2. Sodium 136, potassi um 4.7, chloride 104, carbon dioxide 24, BUN 98, creatinine 2, glucose 242, and calcium 8.9. ASSESSMENT AND PLAN: 1. Acute kidney injury, hemodynamically mediated renal dysfunction, improving renal function. Arturo e note that the creatinine peaked at 3.19 at one time and is now currently at 2.0. Continue supporti ve care. No indication for any dialytic intervention. 2. Acute respiratory failure, multifactorial, combined chronic obstructive pulmonary disease exacerb ation as well as some degree of congestive heart failure. Currently intubated and on continuous posi tive airway pressure, agree with current management.
[2018-01-14] MEDS: Dextrose 5 %-0.45 % NaCl 1,000 ML IV SCH (19:18)
--- NOTE | 2018-01-14 19:18 | PRG ---
DATE OF SERVICE: 01/14/2018 SERVICE: Pulmonary Medicine. INTERVAL HISTORY: The patient is doing fine from a respiratory standpoint. We put her on a spontane ous breathing trial today. She did much better today, but the end of an hour and half, she started h aving a little bit of paradoxical motion. She had elevated blood pressure, but it was a nearly as se carlos alberto as yesterday. There were no overnight events. PHYSICAL EXAMINATION: VITAL SIGNS: Afebrile, pulse 70, blood pressure 178/63, respirations 20, saturation 100% on 21% FiO2 and PEEP of 5. GENERAL: The patient is somnolent. She follows some simple commands and is moving all 4 extremities . HEENT: Normocephalic, atraumatic. Sclerae are white. Conjunctivae pink. Oral mucosa is moist with out lesions. LUNGS: Decent air entry. There are some dependent crackles present. No prolonged expiratory phase or wheezing is appreciated. HEART: Normal rate, regular. ABDOMEN: Soft, nontender, nondistended. Bowel sounds are positive. MUSCULOSKELETAL: No cyanosis or clubbing. No pitting in the bilateral lower extremities. NEUROLOGIC: Grossly nonfocal. LABORATORY DATA: WBC 13.1, hemoglobin 11.2, platelets 256,000. Neutrophil count is 89%. INR 1.8. Creatinine down trending to 2.0. BUN remains elevated at 98. Sodium 136 and roughly stable. Potass ium of 4.7. Influenza A and B is negative. Blood culture x2 are unremarkable. ASSESSMENT: 1. Acute hypoxic respiratory failure. 2. Community-acquired pneumonia, severe. 3. Chronic hypercapnic respiratory failure. 4. Obstructive sleep apnea. 5. Acute bronchitis, resolved. 6. Acute kidney injury on chronic kidney disease, stage 3, improving. PLAN: We will continue current supportive care. I will discontinue the D5 water and put her on D5 h kana NS at 75 mL per hour. Her kidney injury has improved. Her blood pressures also much improved. She is very close to extubation today, but I think that should be better served by having one more da y on mechanical ventilation. If she meets criteria in the morning, extubation can be considered. [facility] follow while the patient remains in this location. CRITICAL CARE TIME: Thirty minutes.
[2018-01-14] MEDS: Atorvastatin Calcium 40 MG TAB PO SCH (20:14)
[2018-01-14] MEDS: Insulin Detemir 100 UNITS/ML 12 UNITS in Pre-Filled Syringe SC SCH (20:14)
[2018-01-14] MEDS: Carvedilol 25 MG TAB PO SCH (20:14)
[2018-01-15] MEDS: Cefepime 1 GM, Admixture Fee 1 EACH in Sterile Water 10 ML SLOW IVP SCH ×2 (02:12→14:39)
[2018-01-15] MEDS: Propofol 1,000 MG/100 ML VIAL IV PRN ×3 (03:01→19:36)
[2018-01-15 06:01] LABS: #Eosinphils 0.1 thou/uL (0.0-0.7); #Monocytes 1.1 thou/uL (0.11-0.59); #Neutrophils 13.5 thou/uL (1.40-6.50); %Eosinophils 0.5 % (0.0-10.0); %Lymphocytes 6.2 % (21.0-51.0); %Monocytes 7.1 % (0.0-10.0); %Neutrophils 86.2 % (42.0-75.0); Hemoglobin 11.7 g/dL (12.0-16.0); Mean Corpuscular HGB CONC 30.9 g/dL (32.0-36.0); Mean Corpuscular Volume 84.2 fl (81.0-99.0); Mean Platelet Volume 9.3 fL (7.4-10.4); Platelet Count 270 thou/uL (130-400); RBC Distribution Width 13.8 % (11.5-14.5); Red Blood Cell (RBC) Count 4.48 mill/uL (4.20-5.40); White Blood Cell (WBC) Count 15.6 thou/uL (4.8-10.8)
[2018-01-15 06:19] LABS: Anion Gap 10 mmol/L (10-20); BUN (Urea Nitrogen) 96 mg/dL (9.8-20.1); Calc. Creatinine Clearance 43 mL/min (70-130); Carbon Dioxide 24 mmol/L (23-31); Chloride 106 mmol/L (98-107); Estimated GFR-MDRD 28; Glucose 268 mg/dL (83-110); Magnesium 2.2 mg/dL (1.6-2.6); Phosphorus 2.5 mg/dL (2.3-4.7); Sodium 135 mmol/L (136-145)
[2018-01-15] MEDS: HumaLOG 300 UNITS/3 ML VIAL SC PRN ×4 (06:22→19:35)
[2018-01-15] MEDS: Famotidine 20 MG TAB PO SCH (08:24)
[2018-01-15] MEDS: Carvedilol 25 MG TAB PO SCH ×2 (08:24→19:34)
[2018-01-15] MEDS: guaiFENesin ER 600 MG TAB PO SCH ×2 (08:25→19:34)
[2018-01-15] MEDS: Heparin 5,000 UNITS/ML VIAL SC SCH ×3 (08:25→19:34)
[2018-01-15] MEDS: Nystatin Powder 15 GM BOT TOP SCH ×3 (08:25→19:40)
[2018-01-15] MEDS: Dextrose 5 %-0.45 % NaCl 1,000 ML IV SCH ×2 (09:31→19:41)
--- NOTE | 2018-01-15 09:51 | PDOC.PN ---
- Subjective Encounter Start Date: 01/15/18 Encounter Start Time: 07:00 pt is on ventilator, sedated, no fever, pt coughs on ventilator - Objective Resuscitation Status: Resuscitation Status FULL:Full Resuscitation MAR Reviewed: Yes Vital Signs & Weight: Vital Signs (12 hours) Temp Pulse Resp BP Pulse Ox 01/15/18 09:02 20 01/15/18 08:00 18 01/15/18 07:00 98.2 F 01/15/18 06:58 70 139/63 01/15/18 06:00 21 H 01/15/18 04:00 21 H 01/15/18 03:00 98.2 F 01/15/18 02:55 70 01/15/18 02:00 23 H 01/15/18 00:00 26 H 01/14/18 23:00 97.5 F L 01/14/18 22:27 70 117/54 L 01/14/18 22:26 98 01/14/18 22:00 23 H Weight Admit Weight 226 lb 3.2 oz Weight 240 lb 8.389 oz Most Recent Monitor Data Heart Rate from ECG 70 NIBP 147/79 NIBP BP-Mean 92 Respiration from ECG 20 SpO2 96 I&O: 01/14/18 01/15/18 01/16/18 06:59 06:59 06:59 Intake Total 2456 2339 Output Total 1940 2600 160 Balance 516 261 -160 Result Diagrams: 01/15/18 05:34 01/15/18 05:34 Additional Labs: Accuchecks 01/14/18 01/14/18 01/14/18 20:14 15:46 09:47 POC Glucose 211 H 210 H 224 H EKG Reviewed by me: Yes (currently nsr) Phys Exam - Physical Examination Constitutional: NAD on ventilator HEENT: PERRLA, sclera anicteric Respiratory: no wheezing, no rales, no rhonchi Cardiovascular: RRR, no significant murmur, no rub Gastrointestinal: soft, no distention, positive bowel sounds Musculoskeletal: no edema, pulses present scd + Lymphatic: no nodes Skin: no rash, normal turgor Dx/Plan (1) Acute renal failure superimposed on stage 3 chronic kidney disease Code(s): N17.9 - ACUTE KIDNEY FAILURE, UNSPECIFIED; N18.3 - CHRONIC KIDNEY DISEASE, STAGE 3 (MODERATE) Status: Acute (2) Acute respiratory failure with hypoxia and hypercarbia Code(s): J96.01 - ACUTE RESPIRATORY FAILURE WITH HYPOXIA; J96.02 - ACUTE RESPIRATORY FAILURE WITH HYPERCAPNIA Status: Acute (3) Community acquired bacterial pneumonia Code(s): J15.9 - UNSPECIFIED BACTERIAL PNEUMONIA Status: Acute (4) Sepsis with acute organ dysfunction Code(s): A41.9 - SEPSIS, UNSPECIFIED ORGANISM; R65.20 - SEVERE SEPSIS WITHOUT SEPTIC SHOCK Status: Acute (5) Supratherapeutic INR Code(s): R79.1 - ABNORMAL COAGULATION PROFILE Status: Resolved Comment: (6) Asthma Code(s): J45.909 - UNSPECIFIED ASTHMA, UNCOMPLICATED Status: Chronic Qualifiers: Asthma severity: moderate Asthma complication type: with acute exacerbation Comment: (7) H/O cardiac pacemaker Code(s): Z95.0 - PRESENCE OF CARDIAC PACEMAKER Status: Chronic (8) HTN (hypertension) Code(s): I10 - ESSENTIAL (PRIMARY) HYPERTENSION Status: Chronic Qualifiers: Hypertension type: essential hypertension Qualified Code(s): I10 - Essential (primary) hypertension Comment: (9) Obesity (BMI 30-39.9) Code(s): E66.9 - OBESITY, UNSPECIFIED Status: Chronic (10) Paroxysmal atrial fibrillation Code(s): I48.0 - PAROXYSMAL ATRIAL FIBRILLATION Status: Chronic (11) Type 2 diabetes mellitus Status: Chronic Qualifiers: Diabetes mellitus complication status: without complication Diabetes mellitus tank terminal gauger insulin use: without nursing home use Qualified Code(s): E11.9 - Type 2 diabetes mellitus without complications Comment: (12) Acute bronchitis Code(s): J20.9 - ACUTE BRONCHITIS, UNSPECIFIED Status: Acute - Plan cont current plan of care, continue antibiotics, respiratory therapy * currently on cefepime and levaquin * continue IV solumedrol * renal function continue to improve * ventilator management as per pulmonary * medication reviewed as below * symptomatic treatment. Review of Systems - Review of Systems Other: unable to review due to intubated status - Medications/Allergies Allergies/Adverse Reactions: Allergies Allergy/AdvReac Type Severity Reaction Status Date / Time No Known Allergies Allergy Verified 04/03/14 10:20 Medications: Current Medications Acetaminophen (Tylenol) 650 mg PO Q4H PRN PRN Reason: Headache/Fever or Pain Last Admin: 01/08/18 21:06 Dose: 650 mg Albuterol/Ipratropium (Duoneb) 3 ml NEB [id number] [facility] Last Admin: 01/15/18 06:58 Dose: 3 ml Albuterol/Ipratropium (Duoneb) 3 ml NEB Q2H PRN PRN Reason: SOB &/or Wheezing Atorvastatin Calcium (Lipitor) [address] [facility] Last Admin: 01/14/18 20:14 Dose: 40 mg Carvedilol (Coreg) 25 mg PO BID [facility] Last Admin: 01/15/18 08:24 Dose: 25 mg Dextrose/Water (Dextrose 50%) 25 gm SLOW IVP PRN PRN PRN Reason: Hypoglycemia Last Admin: 01/07/18 00:09 Dose: 25 gm Famotidine (Pepcid) 20 mg PO DAILY [facility] Last Admin: 01/15/18 08:24 Dose: 20 mg Glucagon (Glucagon) 1 mg IM PRN PRN PRN Reason: Hypoglycemia Guaifenesin (Mucinex) 1,200 mg PO Q12HR [facility] Last Admin: 01/15/18 08:25 Dose: Not Given Heparin Sodium (Porcine) (Heparin) 5,000 units SC TID [facility] Last Admin: 01/15/18 08:25 Dose: 5,000 units Hydralazine HCl (Apresoline) 20 mg SLOW IVP Q15MIN PRN PRN Reason: SBP>180 Last Admin: 01/14/18 16:37 Dose: 20 mg Dextrose/Water (D5w) 1,000 mls @ 0 mls/hr IV .Q0M PRN; As Directed PRN Reason: Hypoglycemia Cefepime HCl 1 gm/Miscellaneous Medication 1 each/ Sterile Water 10 mls @ 120 mls/hr SLOW IVP 0300,1500 [facility] Last Admin: 01/15/18 02:12 Dose: 10 mls Levofloxacin 750 mg/ Device 150 mls @ 100 mls/hr IVPB Q2DAYS [facility] Last Admin: 01/14/18 09:19 Dose: 150 mls Fentanyl Citrate (Fentanyl Bolus) 250 mls @ 0 mls/hr IVPB PRN PRN; As Directed PRN Reason: Breakthrough pain Stop: 02/10/18 17:24 Insulin Detemir 12 units/ (Miscellaneous Medication) 0.12 mls @ 0 mls/hr SC [facility] Last Admin: 01/14/18 20:14 Dose: 0.12 mls Dextrose/Sodium Chloride (D5 1/2 Ns) 1,000 mls @ 75 mls/hr IV .[id number] [facility] Last Admin: 01/15/18 09:31 Dose: 1,000 mls Insulin Human Lispro (Humalog) 0 units SC .MILD SLIDING SCALE PRN PRN Reason: Mild Correctional Scale Last Admin: 01/15/18 06:22 Dose: 4 unit Methylprednisolone Sodium Succinate (Solu-Medrol) 20 mg IVP Q8HR [facility] Last Admin: 01/15/18 05:11 Dose: 20 mg Mineral Oil/White Petrolatum (Lacri-Lube Ointment) 0 gm EA EYE PRN PRN PRN Reason: Dry Eyes Nystatin (Mycostatin Powder) 0 gm TOP TID [facility] Last Admin: 01/15/18 08:25 Dose: 1 applic Propofol (Diprivan) 1,000 mg IV INF PRN; Protocol PRN Reason: TO ACHIEVE ISBELL SCORE 2-3 Stop: 02/10/18 17:24 Last Admin: 01/15/18 03:01 Dose: 1,000 mg Sodium Chloride (Flush - Normal Saline) 10 ml IVF Q12HR [facility] Last Admin: 01/15/18 08:25 Dose: 10 ml Sodium Chloride (Flush - Normal Saline) 10 ml IVF PRN PRN PRN Reason: Saline Flush Last Admin: 01/08/18 06:09 Dose: 10 ml
--- NOTE | 2018-01-15 10:10 | PRG ---
DATE OF SERVICE: 01/15/2018 SERVICE: Renal Medicine. SUBJECTIVE: The patient is an 82-year-old white female, being seen for her acute kidney injury on to p of her chronic renal failure. Renal function has slowly been improving with gentle volume repletio n. She also went into acute respiratory failure, and currently is intubated. She is currently being attempted to be weaned off from her vent. Currently on CPAP. No acute events last night. OBJECTIVE: VITAL SIGNS: Blood pressure is 147/79, heart rate 70, respiratory rate 20, pulse ox 96%. GENERAL EXAM: The patient is awake, intubated on ventilator support. SKIN: Adequate turgor. HEENT: She has pinkish conjunctivae, anicteric sclerae. NECK: No neck mass, no carotid bruits, no JVD. CHEST: No deformities. LUNGS: Decreased breath sounds with question of wheezing. HEART: Normal sinus rhythm. No murmur, no gallops, no rubs. ABDOMEN: Globular, soft, nontender, no masses. EXTREMITIES: Positive for edema. Medications of 01/15/2018 were reviewed. LABORATORY DATA: Laboratories of 01/15/2018, white count 15.6, hemoglobin 11.7. Sodium 135, potassi um 5, chloride 106, carbon dioxide 24, BUN 96, creatinine 1.75, glucose 268, calcium 9, phosphorus 2. 5, magnesium 2.2. ASSESSMENT AND PLAN: 1. Acute kidney injury on top of chronic renal failure, slowly improving renal function. Creatinine is much improved. Continue gentle volume repletion. No indication for any dialytic intervention. 2. Acute respiratory failure, currently on ventilator support. Also, on empiric antibiotics. Ricarda gusman is following. Please note, this patient is also on steroids, at Solu-Medrol 20 mg IV every 8 ho urs. Continue supportive care.
[2018-01-15] MEDS: hydrALAZINE 20 MG/ML VIAL SLOW IVP PRN (11:15)
[2018-01-15] MEDS: Atorvastatin Calcium 40 MG TAB PO SCH (19:34)
[2018-01-15] MEDS: Insulin Detemir 100 UNITS/ML 12 UNITS in Pre-Filled Syringe SC SCH (19:35)
--- NOTE | 2018-01-15 20:52 | PRG ---
DATE OF SERVICE: 01/15/2018 Ms. Rico was evaluated multiple times this morning. She actually has signs of diaphragm weakness and muscle weakness. I examined her several times and came to the conclusion that extubating her wo uld not be safe and that she would likely be intubated again by the end of the day. Ventilatory supp ort was increased. OBJECTIVE: VITAL SIGNS: She is afebrile, heart rate 70, respiratory rate in the 20s now, oximetry is 100%, bloo d pressure 155/72. LUNGS: Remarkable for mild rhonchi anteriorly. HEART: Regular rhythm. ABDOMEN: Soft. LABORATORY DATA: White count 15.6, hemoglobin 11.7, platelets 270. Sodium 135, potassium 5, chlorid e 106, bicarb 24, BUN 96, creatinine 1.75, BUN is 98 yesterday. IMPRESSION: 1. Respiratory failure secondary to pneumonia, deconditioning. 2. Obstructive sleep apnea. 3. Acute on chronic kidney disease. 4. Prerenal azotemia. 5. Diabetes. PLAN: Continue supportive care. We will continue ventilatory support, looks like she was admitted o n the and this is 17, so by first part of next week, better idea was she is a candidate for ext ubation, but I am not sure she will be. I will check chest radiograph in the morning.
[2018-01-16] MEDS: Cefepime 1 GM, Admixture Fee 1 EACH in Sterile Water 10 ML SLOW IVP SCH ×2 (03:53→15:25)
[2018-01-16] MEDS: Propofol 1,000 MG/100 ML VIAL IV PRN (03:53)
[2018-01-16 04:28] LABS: #Eosinphils 0.1 thou/uL (0.0-0.7); #Monocytes 1.5 thou/uL (0.11-0.59); #Neutrophils 14.3 thou/uL (1.40-6.50); %Eosinophils 0.6 % (0.0-10.0); %Lymphocytes 5.8 % (21.0-51.0); %Monocytes 8.9 % (0.0-10.0); %Neutrophils 84.6 % (42.0-75.0); Hemoglobin 11.9 g/dL (12.0-16.0); Mean Corpuscular HGB CONC 32.2 g/dL (32.0-36.0); Mean Corpuscular Hemoglobin 27.2 pg (27.0-31.0); Mean Corpuscular Volume 84.3 fl (81.0-99.0); Mean Platelet Volume 9.2 fL (7.4-10.4); Platelet Count 253 thou/uL (130-400); RBC Distribution Width 13.7 % (11.5-14.5); Red Blood Cell (RBC) Count 4.38 mill/uL (4.20-5.40); White Blood Cell (WBC) Count 16.8 thou/uL (4.8-10.8)
[2018-01-16 04:46] LABS: Anion Gap 12 mmol/L (10-20); BUN (Urea Nitrogen) 97 mg/dL (9.8-20.1); Calc. Creatinine Clearance 52 mL/min (70-130); Calcium 9.1 mg/dL (7.8-10.44); Carbon Dioxide 24 mmol/L (23-31); Chloride 106 mmol/L (98-107); Estimated GFR-MDRD 35; Glucose 296 mg/dL (83-110); Potassium 5.2 mmol/L (3.5-5.1); Sodium 137 mmol/L (136-145)
[2018-01-16] MEDS: HumaLOG 300 UNITS/3 ML VIAL SC PRN ×2 (05:52→11:13)
--- NOTE | 2018-01-16 08:46 | RAD ---
CHEST 1 VIEW: HISTORY: Dyspnea. Followup. COMPARISON: 01/11/18. FINDINGS: Cardiac silhouette remains magnified and enlarged. Pulmonary vasculature remains slightly engorged. Mild patchy bibasilar infiltrates have improved since the prior study. Upper lobe infiltrates have nearly completely resolved. Mediastinum is midline. Lines and tubes appear unchanged in position. No evidence of pneumothorax. IMPRESSION: Improved aeration of the lungs compared to 01/11/18 exam. POS: [facility]
[2018-01-16] MEDS: Heparin 5,000 UNITS/ML VIAL SC SCH ×3 (09:06→21:52)
[2018-01-16] MEDS: Famotidine 20 MG TAB PO SCH (09:06)
[2018-01-16] MEDS: Carvedilol 25 MG TAB PO SCH ×2 (09:06→21:51)
[2018-01-16] MEDS: Nystatin Powder 15 GM BOT TOP SCH ×3 (09:13→21:59)
[2018-01-16] MEDS: guaiFENesin ER 600 MG TAB PO SCH ×2 (09:13→21:51)
--- NOTE | 2018-01-16 10:07 | PDOC.PN ---
- Subjective Encounter Start Date: 01/16/18 Encounter Start Time: 09:40 pt is intubated and sedated, no overnight event Patient seen and examined. - Objective Resuscitation Status: Resuscitation Status FULL:Full Resuscitation MAR Reviewed: Yes Vital Signs & Weight: Vital Signs (12 hours) Temp Pulse Resp BP 01/16/18 08:00 25 H 01/16/18 07:25 70 129/60 01/16/18 06:00 23 H 01/16/18 04:15 70 01/16/18 04:00 23 H 01/16/18 03:00 97.9 F 01/16/18 02:00 21 H 01/16/18 00:00 26 H 01/15/18 23:10 70 111/55 L 01/15/18 23:00 97.6 F Weight Admit Weight 226 lb 3.2 oz Weight 242 lb 11.663 oz Most Recent Monitor Data Heart Rate from ECG 70 NIBP 140/67 NIBP BP-Mean 87 Respiration from ECG 27 SpO2 96 I&O: 01/15/18 01/16/18 01/17/18 06:59 06:59 06:59 Intake Total 2339 3286 Output Total 2600 2165 160 Balance -261 1121 -160 Result Diagrams: 01/16/18 04:06 01/16/18 04:06 Additional Labs: Accuchecks 01/16/18 01/15/18 01/15/18 05:53 19:25 15:46 POC Glucose 273 H 228 H 226 H 01/15/18 10:36 POC Glucose 233 H Radiology Reviewed by me: Yes (chest xray reviewed) EKG Reviewed by me: Yes (nsr) Phys Exam - Physical Examination Constitutional: NAD intubated sedated HEENT: PERRLA, sclera anicteric Neck: no JVD, supple Respiratory: no wheezing, no rales, no rhonchi Cardiovascular: RRR, no significant murmur, no rub Gastrointestinal: soft, no distention, positive bowel sounds Musculoskeletal: no edema, pulses present SCD+ Lymphatic: no nodes Skin: no rash, normal turgor Dx/Plan (1) Acute respiratory failure with hypoxia and hypercarbia Code(s): J96.01 - ACUTE RESPIRATORY FAILURE WITH HYPOXIA; J96.02 - ACUTE RESPIRATORY FAILURE WITH HYPERCAPNIA Status: Acute (2) Acute renal failure superimposed on stage 3 chronic kidney disease Code(s): N17.9 - ACUTE KIDNEY FAILURE, UNSPECIFIED; N18.3 - CHRONIC KIDNEY DISEASE, STAGE 3 (MODERATE) Status: Acute (3) Community acquired bacterial pneumonia Code(s): J15.9 - UNSPECIFIED BACTERIAL PNEUMONIA Status: Acute (4) Sepsis with acute organ dysfunction Code(s): A41.9 - SEPSIS, UNSPECIFIED ORGANISM; R65.20 - SEVERE SEPSIS WITHOUT SEPTIC SHOCK Status: Acute (5) Supratherapeutic INR Code(s): R79.1 - ABNORMAL COAGULATION PROFILE Status: Resolved Comment: (6) Asthma Code(s): J45.909 - UNSPECIFIED ASTHMA, UNCOMPLICATED Status: Chronic Qualifiers: Asthma severity: moderate Asthma complication type: with acute exacerbation Comment: (7) H/O cardiac pacemaker Code(s): Z95.0 - PRESENCE OF CARDIAC PACEMAKER Status: Chronic (8) HTN (hypertension) Code(s): I10 - ESSENTIAL (PRIMARY) HYPERTENSION Status: Chronic Qualifiers: Hypertension type: essential hypertension Qualified Code(s): I10 - Essential (primary) hypertension Comment: (9) Obesity (BMI 30-39.9) Code(s): E66.9 - OBESITY, UNSPECIFIED Status: Chronic (10) Paroxysmal atrial fibrillation Code(s): I48.0 - PAROXYSMAL ATRIAL FIBRILLATION Status: Chronic (11) Type 2 diabetes mellitus Status: Chronic Qualifiers: Diabetes mellitus complication status: without complication Diabetes mellitus residential insulin use: without terminologist use Qualified Code(s): E11.9 - Type 2 diabetes mellitus without complications Comment: (12) Acute bronchitis Code(s): J20.9 - ACUTE BRONCHITIS, UNSPECIFIED Status: Acute - Plan cont current plan of care, mast catheter, continue antibiotics, respiratory therapy, DVT proph w/heparin, DVT proph w/SCDs * continue vent management as per pulmonary * weaning as per pulmonary * continue cefepime and levaquin * continue solumedrol * renal function continue to improve * medication reviewed as below * symptomatic treatment. Review of Systems - Review of Systems Other: unable to review due to intubated status - Medications/Allergies Allergies/Adverse Reactions: Allergies Allergy/AdvReac Type Severity Reaction Status Date / Time No Known Allergies Allergy Verified 04/03/14 10:20 Medications: Current Medications Acetaminophen (Tylenol) 650 mg PO Q4H PRN PRN Reason: Headache/Fever or Pain Last Admin: 01/08/18 21:06 Dose: 650 mg Albuterol/Ipratropium (Duoneb) 3 ml NEB [id number] [facility] Last Admin: 01/16/18 07:25 Dose: 3 ml Albuterol/Ipratropium (Duoneb) 3 ml NEB Q2H PRN PRN Reason: SOB &/or Wheezing Atorvastatin Calcium (Lipitor) 40 mg PO HS [facility] Last Admin: 01/15/18 19:34 Dose: 40 mg Carvedilol (Coreg) 25 mg PO BID [facility] Last Admin: 01/16/18 09:06 Dose: 25 mg Dextrose/Water (Dextrose 50%) 25 gm SLOW IVP PRN PRN PRN Reason: Hypoglycemia Last Admin: 01/07/18 00:09 Dose: 25 gm Famotidine (Pepcid) 20 mg PO DAILY [facility] Last Admin: 01/16/18 09:06 Dose: 20 mg Glucagon (Glucagon) 1 mg IM PRN PRN PRN Reason: Hypoglycemia Guaifenesin (Mucinex) 1,200 mg PO Q12HR [facility] Last Admin: 01/16/18 09:13 Dose: Not Given Heparin Sodium (Porcine) (Heparin) 5,000 units SC TID [facility] Last Admin: 01/16/18 09:06 Dose: 5,000 units Hydralazine HCl (Apresoline) 20 mg SLOW IVP Q15MIN PRN PRN Reason: SBP>180 Last Admin: 01/15/18 11:15 Dose: 20 mg Dextrose/Water (D5w) 1,000 mls @ 0 mls/hr IV .Q0M PRN; As Directed PRN Reason: Hypoglycemia Cefepime HCl 1 gm/Miscellaneous Medication 1 each/ Sterile Water 10 mls @ 120 mls/hr SLOW IVP 0300,1500 [facility] Last Admin: 01/16/18 03:53 Dose: 10 mls Levofloxacin 750 mg/ Device 150 mls @ 100 mls/hr IVPB Q2DAYS [facility] Last Admin: 01/16/18 09:06 Dose: 150 mls Fentanyl Citrate (Fentanyl Bolus) 250 mls @ 0 mls/hr IVPB PRN PRN; As Directed PRN Reason: Breakthrough pain Stop: 02/10/18 17:24 Insulin Detemir 12 units/ (Miscellaneous Medication) 0.12 mls @ 0 mls/hr SC HS [facility] Last Admin: 01/15/18 19:35 Dose: 0.12 mls Dextrose/Sodium Chloride (D5 1/2 Ns) 1,000 mls @ 75 mls/hr IV .[id number] [facility] Last Admin: 01/15/18 19:41 Dose: 1,000 mls Insulin Human Lispro (Humalog) 0 units SC .AGGRESSIVE SLIDING PRN; Protocol PRN Reason: AGGRESSIVE SLIDING SCALE Last Admin: 01/16/18 05:52 Dose: 9 unit Methylprednisolone Sodium Succinate (Solu-Medrol) 20 mg IVP Q8HR [facility] Last Admin: 01/16/18 05:52 Dose: 20 mg Mineral Oil/White Petrolatum (Lacri-Lube Ointment) 0 gm EA EYE PRN PRN PRN Reason: Dry Eyes Nystatin (Mycostatin Powder) 0 gm TOP TID [facility] Last Admin: 01/16/18 09:13 Dose: 1 applic Propofol (Diprivan) 1,000 mg IV INF PRN; Protocol PRN Reason: TO ACHIEVE ISBELL SCORE 2-3 Stop: 02/10/18 17:24 Last Admin: 01/16/18 03:53 Dose: 1,000 mg Sodium Chloride (Flush - Normal Saline) 10 ml IVF Q12HR [facility] Last Admin: 01/16/18 09:13 Dose: 10 ml Sodium Chloride (Flush - Normal Saline) 10 ml IVF PRN PRN PRN Reason: Saline Flush Last Admin: 01/08/18 06:09 Dose: 10 ml
[2018-01-16] MEDS ORDERED: Furosemide 100 MG/10 ML VIAL SLOW IVP SCH (10:30)
--- NOTE | 2018-01-16 11:01 | PRG ---
DATE OF SERVICE: 01/16/2018 SUBJECTIVE: Ms. Rico still has signs of muscle weakness. If her pressure support is turned off, her tidal volumes are less than 200 mL. Respiratory rate is now in the 20s on volume ventilation wi th pressure support. She very quickly nods, as she is very weak. Her intake and output is positive 1121. Unfortunately, creatinine goes down, but she gets more edema tous with a positive fluid balance. We will give her 1 dose of Lasix, but I suspect her creatinine w ill come back up a little bit. OBJECTIVE: LUNGS: Clear anteriorly. HEART: Regular rhythm. ABDOMEN: Soft. EXTREMITIES: With no asymmetry, but she does have 4 extremity mild edema. LABORATORY DATA: Sodium 137, potassium 5.2, chloride 106, bicarb 24, BUN 97, creatinine 1.45. Thus, her creatinine is reflective of a true renal function given that she has very little muscle mass. White count 16.8, hemoglobin 11.9, platelets 253. Chest radiograph done this morning was reviewed by me and shows only a faint increase in interstitial markings at the right base. There is not enough in the way of pulmonary compliance issues that she should be this weak. I suspec t that she will not wean or clear secretions without a tracheostomy. IMPRESSION: 1. Respiratory failure with no improvement in strength. 2. Chronic kidney disease with a creatinine that is unlikely to reflect her true renal function. I suspect she has very little muscle mass. 3. Obstructive sleep apnea. 4. Acute on chronic kidney disease. 5. Diabetes. 6. Respiratory failure secondary to pneumonia, radiographically it is very mild. We will continue with current supportive care measures, consideration for tracheostomy will be review ed by her primary lighting technician, Dr. Talavera, when he returns tomorrow. She will continue to be foll owed by Dr. Mccloud, and hopefully, she needs dialysis, but this may be in her future. She will not tole rate, in my opinion, several days of positive fluid balance. She will be switched off D5 since she is a diabetic. Discontinue the propofol and started her on just p.r.n. Ativan. She will be given 1 dose 60 mg of Lasix. To continue of her lab evaluated on a daily basis. In my opinion, antimicrobial therapy can be simplified. Blood cultures are negative so far. Cultures were collected on the . She is now at 10 days of antimicrobial therapy from what I can tell from the computer records. Cefep karine was started by Dr. Baum on the and Levaquin was every other day on the . Given her radi ographic findings, this course of antibiotics should be more than adequate. Steroid dose will also be decreased today. CRITICAL CARE TIME: 30 minutes.
[2018-01-16] MEDS: Lorazepam 2 MG/ML VIAL SLOW IVP SCH ×2 (11:04→13:20)
[2018-01-16] MEDS: Sodium Chloride 0.45% 1,000 ML IV SCH (11:06)
[2018-01-16] MEDS: Insulin Detemir 100 UNITS/ML 12 UNITS in Pre-Filled Syringe SC SCH ×2 (21:50→22:06)
[2018-01-16] MEDS: Atorvastatin Calcium 40 MG TAB PO SCH (21:51)
[2018-01-16] MEDS: Acetaminophen 325 MG TAB PO PRN (21:51)
[2018-01-17] MEDS: Cefepime 1 GM, Admixture Fee 1 EACH in Sterile Water 10 ML SLOW IVP SCH (02:03)
[2018-01-17 03:55] LABS: Anion Gap 11 mmol/L (10-20); BUN (Urea Nitrogen) 112 mg/dL (9.8-20.1); Calc. Creatinine Clearance 50 mL/min (70-130); Carbon Dioxide 26 mmol/L (23-31); Chloride 105 mmol/L (98-107); Estimated GFR-MDRD 33; Glucose 142 mg/dL (83-110); Potassium 4.8 mmol/L (3.5-5.1); Sodium 137 mmol/L (136-145)
[2018-01-17 04:27] LABS: Band 6 % (5-11); Hemoglobin 11.2 g/dL (12.0-16.0); Lymphocytes 13 % (21-51); MDiff Complete? YES; Mean Corpuscular HGB CONC 32.6 g/dL (32.0-36.0); Mean Corpuscular Hemoglobin 27.5 pg (27.0-31.0); Mean Corpuscular Volume 84.4 fl (81.0-99.0); Mean Platelet Volume 9.7 fL (7.4-10.4); Monocytes 16 % (0-10); Neutrophil 65 % (42-75); Platelet Count 240 thou/uL (130-400); RBC Distribution Width 13.9 % (11.5-14.5); Red Blood Cell (RBC) Count 4.07 mill/uL (4.20-5.40); White Blood Cell (WBC) Count 19.7 thou/uL (4.8-10.8)
[2018-01-17] MEDS: Carvedilol 25 MG TAB PO SCH ×3 (08:28→21:37)
[2018-01-17] MEDS: Heparin 5,000 UNITS/ML VIAL SC SCH ×3 (08:29→21:37)
[2018-01-17] MEDS: guaiFENesin ER 600 MG TAB PO SCH (08:30)
[2018-01-17] MEDS: Famotidine 20 MG TAB PO SCH (08:30)
[2018-01-17] MEDS: Nystatin Powder 15 GM BOT TOP SCH ×3 (08:30→21:38)
--- NOTE | 2018-01-17 09:17 | PRG ---
DATE OF SERVICE: 01/17/2018 PULMONARY CRITICAL CARE PROGRESS NOTE This is 35 minutes critical care time. SUBJECTIVE: I have reviewed the records with Ms. Rico. She has been hospitalized since 01/06/20 18 with acute on chronic respiratory failure requiring mechanical ventilation. She has failed attemp ts to wean her because she has very poor muscle strength while on spontaneous mode of mechanical vent ilation. Yesterday, she was placed on a Versed drip. She is somewhat somnolent for exam this cate millan. PHYSICAL EXAMINATION: VITAL SIGNS: Temperature 98.2, pulse 70, blood pressure 97/42, 24-hour intake 2293, output 3440. Kenneth pierce is on no vasopressors. GENERAL: Neurologically, she is sedated on mechanical ventilation. HEENT: Sclera anicteric. Oropharynx dry. NECK: No JVD. LUNGS: Coarse breath sounds. CARDIOVASCULAR: S1, S2 regular, no murmur. ABDOMEN: Soft, obese, nontender. EXTREMITIES: Generalized edema throughout. LABORATORY DATA: No blood gas was done. White blood cell count 19.7, hemoglobin 11.2, hematocrit 34 .4, and platelet count 240. INR is 1.8. Sodium 137, potassium 4.8, chloride 105, CO2 is 26, BUN 112 , creatinine 1.5, glucose 142. ASSESSMENT: 1. Acute on chronic respiratory failure requiring mechanical ventilation. 2. Obstructive sleep apnea. 3. Chronic kidney disease. 4. Diabetes mellitus. PLAN: I would agree with Dr. Zarate that the patient need a tracheostomy if further weaning attempts are planned. There is some question as to whether the patient will actually want this intervention. I will attempt to block sometime today to speak with the family and see what their wishes are in thi s regards. It is also noted that the palliative care team is involved, so I will try to review their notes and see where they are with the family.
--- NOTE | 2018-01-17 10:58 | PDOC.PN ---
- Subjective Encounter Start Date: 01/17/18 Encounter Start Time: 09:10 intubated, sedated Patient seen and examined. No overnight events - Objective Resuscitation Status: Resuscitation Status FULL:Full Resuscitation MAR Reviewed: Yes Vital Signs & Weight: Vital Signs (12 hours) Temp Pulse Resp BP Pulse Ox 01/17/18 10:00 28 H 01/17/18 09:56 70 99/50 L 01/17/18 08:00 98.3 F 70 28 H 98 01/17/18 07:56 70 97/42 L 01/17/18 07:00 98.2 F 01/17/18 06:05 70 116/54 L 01/17/18 06:00 28 H 01/17/18 04:00 98.9 F 28 H 01/17/18 02:13 70 01/17/18 02:00 25 H 01/17/18 00:00 98.4 F 27 H Weight Admit Weight 226 lb 3.2 oz Weight 242 lb 11.663 oz Most Recent Monitor Data Heart Rate from ECG 70 NIBP 117/53 NIBP BP-Mean 83 Respiration from ECG 20 SpO2 99 I&O: 01/16/18 01/17/18 01/18/18 06:59 06:59 06:59 Intake Total 3286 2293 Output Total 2165 3440 230 Balance 1121 -1147 -230 Result Diagrams: 01/17/18 03:05 01/17/18 03:05 Additional Labs: Accuchecks 01/17/18 01/16/18 01/16/18 10:16 22:02 15:32 POC Glucose 167 H 131 H 158 H 01/16/18 11:13 POC Glucose 265 H Phys Exam - Physical Examination Constitutional: NAD intubated, sedated HEENT: PERRLA, moist MMs, sclera anicteric Neck: no JVD, supple Respiratory: no wheezing, no rales, no rhonchi Cardiovascular: RRR, no significant murmur, no rub Gastrointestinal: soft, no distention, positive bowel sounds Musculoskeletal: no edema, pulses present Lymphatic: no nodes Skin: no rash, normal turgor Dx/Plan (1) Acute respiratory failure with hypoxia and hypercarbia Code(s): J96.01 - ACUTE RESPIRATORY FAILURE WITH HYPOXIA; J96.02 - ACUTE RESPIRATORY FAILURE WITH HYPERCAPNIA Status: Acute (2) Acute renal failure superimposed on stage 3 chronic kidney disease Code(s): N17.9 - ACUTE KIDNEY FAILURE, UNSPECIFIED; N18.3 - CHRONIC KIDNEY DISEASE, STAGE 3 (MODERATE) Status: Acute (3) Community acquired bacterial pneumonia Code(s): J15.9 - UNSPECIFIED BACTERIAL PNEUMONIA Status: Acute (4) Sepsis with acute organ dysfunction Code(s): A41.9 - SEPSIS, UNSPECIFIED ORGANISM; R65.20 - SEVERE SEPSIS WITHOUT SEPTIC SHOCK Status: Acute (5) Supratherapeutic INR Code(s): R79.1 - ABNORMAL COAGULATION PROFILE Status: Resolved Comment: (6) Asthma Code(s): J45.909 - UNSPECIFIED ASTHMA, UNCOMPLICATED Status: Chronic Qualifiers: Asthma severity: moderate Asthma complication type: with acute exacerbation Comment: (7) H/O cardiac pacemaker Code(s): Z95.0 - PRESENCE OF CARDIAC PACEMAKER Status: Chronic (8) HTN (hypertension) Code(s): I10 - ESSENTIAL (PRIMARY) HYPERTENSION Status: Chronic Qualifiers: Hypertension type: essential hypertension Qualified Code(s): I10 - Essential (primary) hypertension Comment: (9) Obesity (BMI 30-39.9) Code(s): E66.9 - OBESITY, UNSPECIFIED Status: Chronic (10) Paroxysmal atrial fibrillation Code(s): I48.0 - PAROXYSMAL ATRIAL FIBRILLATION Status: Chronic (11) Type 2 diabetes mellitus Status: Chronic Qualifiers: Diabetes mellitus complication status: without complication Diabetes mellitus assisted insulin use: without assisted use Qualified Code(s): E11.9 - Type 2 diabetes mellitus without complications Comment: (12) Acute bronchitis Code(s): J20.9 - ACUTE BRONCHITIS, UNSPECIFIED Status: Acute - Plan cont current plan of care, continue antibiotics, respiratory therapy * difficult to wean due to extreme weakness and other medical problems * she may end up with tracheostomy * medication reviewed as below * symptomatic treatment. * continue current antibiotics * and vent as per pulmonary Review of Systems - Review of Systems Other: unable to review due to intubated status - Medications/Allergies Allergies/Adverse Reactions: Allergies Allergy/AdvReac Type Severity Reaction Status Date / Time No Known Allergies Allergy Verified 04/03/14 10:20 Medications: Current Medications Acetaminophen (Tylenol) 650 mg PO Q4H PRN PRN Reason: Headache/Fever or Pain Last Admin: 01/16/18 21:51 Dose: 650 mg Albuterol/Ipratropium (Duoneb) 3 ml NEB [id number] [facility] Last Admin: 01/17/18 09:55 Dose: 3 ml Albuterol/Ipratropium (Duoneb) 3 ml NEB Q2H PRN PRN Reason: SOB &/or Wheezing Atorvastatin Calcium (Lipitor) 40 mg PO [facility] Last Admin: 01/16/18 21:51 Dose: 40 mg Carvedilol (Coreg) 25 mg PO BID [facility] Last Admin: 01/16/18 21:51 Dose: 25 mg Dextrose/Water (Dextrose 50%) 25 gm SLOW IVP PRN PRN PRN Reason: Hypoglycemia Last Admin: 01/07/18 00:09 Dose: 25 gm Famotidine (Pepcid) 20 mg PO DAILY [facility] Last Admin: 01/17/18 08:30 Dose: 20 mg Glucagon (Glucagon) 1 mg IM PRN PRN PRN Reason: Hypoglycemia Heparin Sodium (Porcine) (Heparin) 5,000 units SC TID [facility] Last Admin: 01/17/18 08:29 Dose: 5,000 units Hydralazine HCl (Apresoline) 20 mg SLOW IVP Q15MIN PRN PRN Reason: SBP>180 Last Admin: 01/15/18 11:15 Dose: 20 mg Dextrose/Water (D5w) 1,000 mls @ 0 mls/hr IV .Q0M PRN; As Directed PRN Reason: Hypoglycemia Fentanyl Citrate (Fentanyl Bolus) 250 mls @ 0 mls/hr IVPB PRN PRN; As Directed PRN Reason: Breakthrough pain Stop: 02/10/18 17:24 Insulin Detemir 12 units/ (Miscellaneous Medication) 0.12 mls @ 0 mls/hr SC [facility] Last Admin: 01/16/18 22:06 Dose: Not Given Sodium Chloride (1/2 Normal Saline) 1,000 mls @ 50 mls/hr IV .Q20H [facility] Last Admin: 01/16/18 11:06 Dose: 1,000 mls Midazolam HCl (Versed) 100 mls @ 0 mls/hr IVPB INF PRN; Protocol; Titrate PRN Reason: Sedation Last Admin: 01/16/18 13:51 Dose: 100 mls Insulin Human Lispro (Humalog) 0 units SC .AGGRESSIVE SLIDING PRN; Protocol PRN Reason: AGGRESSIVE SLIDING SCALE Last Admin: 01/16/18 11:13 Dose: 9 unit Methylprednisolone Sodium Succinate (Solu-Medrol) 20 mg IVP DAILY [facility] Last Admin: 01/17/18 08:28 Dose: 20 mg Mineral Oil/White Petrolatum (Lacri-Lube Ointment) 0 gm EA EYE PRN PRN PRN Reason: Dry Eyes Nystatin (Mycostatin Powder) 0 gm TOP TID [facility] Last Admin: 01/17/18 08:30 Dose: 1 applic Sodium Chloride (Flush - Normal Saline) 10 ml IVF Q12HR [facility] Last Admin: 01/17/18 08:31 Dose: 10 ml Sodium Chloride (Flush - Normal Saline) 10 ml IVF PRN PRN PRN Reason: Saline Flush Last Admin: 01/08/18 06:09 Dose: 10 ml
[2018-01-17] MEDS: Sodium Chloride 0.45% 1,000 ML IV SCH ×3 (14:45→21:39)
[2018-01-17] MEDS: HumaLOG 300 UNITS/3 ML VIAL SC PRN (16:26)
--- NOTE | 2018-01-17 19:15 | OP-2 ---
DATE OF PROCEDURE: 01/09/2018 SUBCLAVIAN CENTRAL LINE NOTE INDICATIONS: Difficulty obtaining peripheral access, failed midline, need for multiple drugs and fluids. PROCEDURE OPERATORS: Dr. Winter Lopez and Dr. Markell Dasilva. ATTENDING PHYSICIAN: Dr. Lambert Leigh was in attendance throughout the entire procedure. Ultrasound used just to identify the subclavian vein. CONSENT: Consent was obtained from the patient's daughter prior to the procedure. Indications, risks and benefits were explained at length. PROCEDURE SUMMARY: A timeout was performed. My hands were washed immediately prior to the procedure. I wore a surgical cap, mask with protective eyewear, sterile gown and sterile gloves throughout the procedure. The patient was placed in Trendelenburg position. The right chest region was prepped using chlorhexidine scrub and draped in sterile fashion using a 3/4 sheet drape. Anesthesia was achieved with 1% lidocaine. The introducer needle was inserted approximately 2 cm lateral and 1 cm inferior to the normal curvature of the patient's clavicle. Venous blood was withdrawn. The syringe was removed and guidewire was advanced into the introducer needle. A small incision was made at the skin surface with the scalpel and the introducer needle was exchanged for a dilator over the guidewire. After appropriate dilation was obtained, the dilator was exchanged over the wire for a 7-Swedish central venous catheter. The wire was removed and the catheter was sutured in place. A sterile Tegaderm patch was placed over the catheter at the insertion site. The patient tolerated the procedure without any hemodynamic compromise. At time of procedure completion, all ports were aspirated and flushed properly. Post- procedure x-ray was pending at the time immediately post-procedure. Estimated blood loss is 10 mL. MTDD
[2018-01-17] MEDS: Acetaminophen 325 MG TAB PO PRN (21:37)
[2018-01-17] MEDS: Atorvastatin Calcium 40 MG TAB PO SCH (21:37)
[2018-01-17] MEDS: Insulin Detemir 100 UNITS/ML 12 UNITS in Pre-Filled Syringe SC SCH (21:37)
[2018-01-18 05:45] LABS: #Eosinphils 0.1 thou/uL (0.0-0.7); #Lymphocytes 1.7 thou/uL (1.20-3.40); #Monocytes 1.7 thou/uL (0.11-0.59); #Neutrophils 13.1 thou/uL (1.40-6.50); %Basophils 0.1 % (0.0-1.0); %Eosinophils 0.9 % (0.0-10.0); %Monocytes 10.2 % (0.0-10.0); %Neutrophils 78.9 % (42.0-75.0); Mean Corpuscular Hemoglobin 27.2 pg (27.0-31.0); Mean Corpuscular Volume 84.8 fl (81.0-99.0); Mean Platelet Volume 9.8 fL (7.4-10.4); Platelet Count 211 thou/uL (130-400); RBC Distribution Width 13.7 % (11.5-14.5); Red Blood Cell (RBC) Count 3.68 mill/uL (4.20-5.40); White Blood Cell (WBC) Count 16.7 thou/uL (4.8-10.8)
[2018-01-18 06:31] LABS: Anion Gap 8 mmol/L (10-20); BUN (Urea Nitrogen) 110 mg/dL (9.8-20.1); Calc. Creatinine Clearance 55 mL/min (70-130); Calcium 8.6 mg/dL (7.8-10.44); Carbon Dioxide 28 mmol/L (23-31); Chloride 105 mmol/L (98-107); Estimated GFR-MDRD 37; Glucose 137 mg/dL (83-110); Potassium 4.7 mmol/L (3.5-5.1); Sodium 136 mmol/L (136-145)
[2018-01-18] MEDS ORDERED: Furosemide 40 MG/4 ML VIAL SLOW IVP SCH (07:30)
--- NOTE | 2018-01-18 07:46 | PRG ---
DATE OF SERVICE: 01/18/2018 The patient is more arousable today than she was yesterday. She remains on mechanical ventilation. PHYSICAL EXAMINATION: VITAL SIGNS: Temperature is 98.9, pulse 70, blood pressure 101/39, 24-hour intake 2472, output 2115, weight 241 pounds. NEUROLOGIC: She will wake up and follow commands. HEENT: Pupils react. Sclerae are anicteric. Oropharynx dry. NECK: No JVD. LUNGS: Coarse rhonchi. CARDIOVASCULAR: S1 and S2, irregularly irregular. ABDOMEN: Soft, nontender. EXTREMITIES: Edematous throughout. LABORATORY DATA: Sodium 136, potassium 4.7, chloride 105, CO2 28, BUN 110, creatinine 1.4, glucose 1 37. White blood cell count 16.7, hematocrit 31.2, platelet count 211. The patient was tried on a spontaneous breathing trial today had a better tidal volumes at approximat keerthi 350 mL. ASSESSMENT: 1. Acute respiratory failure requiring mechanical ventilation. 2. Acute renal failure. 3. Obstructive sleep apnea. 4. Diabetes mellitus. PLAN: 1. I spoke with the patient's 2 daughters at length yesterday afternoon for about 30 minutes. I neymar d them my concern is that the patient would not be able to wean without insertion of a tracheostomy. It was clear from my conversation with them that the patient would probably not want this, but the d jesseraisa's needed more time to decide. In the meantime, I am going to go ahead and place her on spont aneous breathing trials and see how the patient does. She needs volume removal and I will give her d iuretics for this. This may affect her kidney function somewhat. 2. I have reviewed the remainder of her orders. Antibiotics were stopped yesterday. She is receivi ng tube feeds. She is on heparin subcu for DVT prophylaxis. Previously, she was on warfarin for pro phylaxis from atrial fibrillation. I am holding at the current time in anticipation of the patient's family may choose to proceed with a tracheostomy Critical care time 35 minutes on this patient.
[2018-01-18] MEDS: Famotidine 20 MG TAB PO SCH (09:37)
[2018-01-18] MEDS: Carvedilol 25 MG TAB PO SCH ×2 (09:38→20:53)
[2018-01-18] MEDS: Nystatin Powder 15 GM BOT TOP SCH ×3 (09:38→20:53)
[2018-01-18] MEDS: Heparin 5,000 UNITS/ML VIAL SC SCH ×3 (09:38→20:52)
[2018-01-18] MEDS: HumaLOG 300 UNITS/3 ML VIAL SC PRN ×3 (09:49→22:07)
--- NOTE | 2018-01-18 10:58 | PDOC.PN ---
- Subjective Encounter Start Date: 01/18/18 Encounter Start Time: 09:30 Patient seen and examined. No overnight events intubated, sedated - Objective Resuscitation Status: Resuscitation Status FULL:Full Resuscitation MAR Reviewed: Yes Vital Signs & Weight: Vital Signs (12 hours) Temp Pulse Resp BP Pulse Ox 01/18/18 10:52 90 34 H 91 L 01/18/18 08:00 98 F 70 34 H 01/18/18 07:51 70 124/50 L 01/18/18 07:49 70 16 93 L 01/18/18 06:00 25 H 01/18/18 04:00 20 01/18/18 03:21 74 24 H 97 01/18/18 03:12 73 01/18/18 02:00 21 H 01/18/18 00:46 70 01/18/18 00:00 98.9 F 24 H Weight Admit Weight 226 lb 3.2 oz Weight 241 lb 10.026 oz Most Recent Monitor Data Heart Rate from ECG 68 NIBP 129/52 NIBP BP-Mean 86 Respiration from ECG 33 SpO2 92 I&O: 01/17/18 01/18/18 01/19/18 06:59 06:59 06:59 Intake Total 3124 2472 Output Total 3440 2115 165 Balance -316 357 -165 Result Diagrams: 01/18/18 04:59 01/18/18 04:59 Additional Labs: Accuchecks 01/18/18 01/18/18 01/17/18 09:37 05:03 22:07 POC Glucose 186 H 145 H 179 H 01/17/18 15:44 POC Glucose 233 H EKG Reviewed by me: Yes (nsr) Phys Exam - Physical Examination Constitutional: NAD intubated sedated Neck: no JVD, supple Respiratory: no wheezing, no rales, no rhonchi Cardiovascular: RRR, no significant murmur, no rub Gastrointestinal: soft, no distention, positive bowel sounds Musculoskeletal: no edema, pulses present scd+ Lymphatic: no nodes Skin: no rash, normal turgor Dx/Plan (1) Acute respiratory failure with hypoxia and hypercarbia Code(s): J96.01 - ACUTE RESPIRATORY FAILURE WITH HYPOXIA; J96.02 - ACUTE RESPIRATORY FAILURE WITH HYPERCAPNIA Status: Acute (2) Acute renal failure superimposed on stage 3 chronic kidney disease Code(s): N17.9 - ACUTE KIDNEY FAILURE, UNSPECIFIED; N18.3 - CHRONIC KIDNEY DISEASE, STAGE 3 (MODERATE) Status: Acute (3) Community acquired bacterial pneumonia Code(s): J15.9 - UNSPECIFIED BACTERIAL PNEUMONIA Status: Acute (4) Sepsis with acute organ dysfunction Code(s): A41.9 - SEPSIS, UNSPECIFIED ORGANISM; R65.20 - SEVERE SEPSIS WITHOUT SEPTIC SHOCK Status: Acute (5) Supratherapeutic INR Code(s): R79.1 - ABNORMAL COAGULATION PROFILE Status: Resolved Comment: (6) Asthma Code(s): J45.909 - UNSPECIFIED ASTHMA, UNCOMPLICATED Status: Chronic Qualifiers: Asthma severity: moderate Asthma complication type: with acute exacerbation Comment: (7) H/O cardiac pacemaker Code(s): Z95.0 - PRESENCE OF CARDIAC PACEMAKER Status: Chronic (8) HTN (hypertension) Code(s): I10 - ESSENTIAL (PRIMARY) HYPERTENSION Status: Chronic Qualifiers: Hypertension type: essential hypertension Qualified Code(s): I10 - Essential (primary) hypertension Comment: (9) Obesity (BMI 30-39.9) Code(s): E66.9 - OBESITY, UNSPECIFIED Status: Chronic (10) Paroxysmal atrial fibrillation Code(s): I48.0 - PAROXYSMAL ATRIAL FIBRILLATION Status: Chronic (11) Type 2 diabetes mellitus Status: Chronic Qualifiers: Diabetes mellitus complication status: without complication Diabetes mellitus moth exterminator insulin use: without moth exterminator use Qualified Code(s): E11.9 - Type 2 diabetes mellitus without complications Comment: (12) Acute bronchitis Code(s): J20.9 - ACUTE BRONCHITIS, UNSPECIFIED Status: Acute - Plan cont current plan of care * vent as per pulmonary * may need tracheostomy * medication reviewed as below * symptomatic treatment * continue empiric antibiotics * pulmonary following. Review of Systems - Review of Systems Other: unable to review due to intubated status - Medications/Allergies Allergies/Adverse Reactions: Allergies Allergy/AdvReac Type Severity Reaction Status Date / Time No Known Allergies Allergy Verified 04/03/14 10:20 Medications: Current Medications Acetaminophen (Tylenol) 650 mg PO Q4H PRN PRN Reason: Headache/Fever or Pain Last Admin: 01/17/18 21:37 Dose: 650 mg Albuterol/Ipratropium (Duoneb) 3 ml NEB [id number] [facility] Last Admin: 01/18/18 10:52 Dose: 3 ml Albuterol/Ipratropium (Duoneb) 3 ml NEB Q2H PRN PRN Reason: SOB &/or Wheezing Atorvastatin Calcium (Lipitor) 40 mg PO [facility] Last Admin: 01/17/18 21:37 Dose: 40 mg Carvedilol (Coreg) 25 mg PO BID [facility] Last Admin: 01/18/18 09:38 Dose: 25 mg Dextrose/Water (Dextrose 50%) 25 gm SLOW IVP PRN PRN PRN Reason: Hypoglycemia Last Admin: 01/07/18 00:09 Dose: 25 gm Famotidine (Pepcid) 20 mg PO DAILY [facility] Last Admin: 01/18/18 09:37 Dose: 20 mg Glucagon (Glucagon) 1 mg IM PRN PRN PRN Reason: Hypoglycemia Heparin Sodium (Porcine) (Heparin) 5,000 units SC TID [facility] Last Admin: 01/18/18 09:38 Dose: 5,000 units Hydralazine HCl (Apresoline) 20 mg SLOW IVP Q15MIN PRN PRN Reason: SBP>180 Last Admin: 01/15/18 11:15 Dose: 20 mg Dextrose/Water (D5w) 1,000 mls @ 0 mls/hr IV .Q0M PRN; As Directed PRN Reason: Hypoglycemia Fentanyl Citrate (Fentanyl Bolus) 250 mls @ 0 mls/hr IVPB PRN PRN; As Directed PRN Reason: Breakthrough pain Stop: 02/10/18 17:24 Insulin Detemir 12 units/ (Miscellaneous Medication) 0.12 mls @ 0 mls/hr SC [facility] Last Admin: 01/17/18 21:37 Dose: 0.12 mls Sodium Chloride (1/2 Normal Saline) 1,000 mls @ 50 mls/hr IV .Q20H [facility] Last Admin: 01/17/18 21:39 Dose: 1,000 mls Midazolam HCl (Versed) 100 mls @ 0 mls/hr IVPB INF PRN; Protocol; Titrate PRN Reason: Sedation Last Admin: 01/16/18 13:51 Dose: 100 mls Insulin Human Lispro (Humalog) 0 units SC .AGGRESSIVE SLIDING PRN; Protocol PRN Reason: AGGRESSIVE SLIDING SCALE Last Admin: 01/18/18 09:49 Dose: 3 unit Methylprednisolone Sodium Succinate (Solu-Medrol) 20 mg IVP DAILY [facility] Last Admin: 01/18/18 09:37 Dose: 20 mg Mineral Oil/White Petrolatum (Lacri-Lube Ointment) 0 gm EA EYE PRN PRN PRN Reason: Dry Eyes Nystatin (Mycostatin Powder) 0 gm TOP TID [facility] Last Admin: 01/18/18 09:38 Dose: 1 applic Sodium Chloride (Flush - Normal Saline) 10 ml IVF Q12HR [facility] Last Admin: 01/18/18 09:39 Dose: 10 ml Sodium Chloride (Flush - Normal Saline) 10 ml IVF PRN PRN PRN Reason: Saline Flush Last Admin: 01/18/18 09:40 Dose: 10 ml
[2018-01-18] MEDS: Acetaminophen 325 MG TAB PO PRN (20:52)
[2018-01-18] MEDS: Atorvastatin Calcium 40 MG TAB PO SCH (20:52)
[2018-01-18] MEDS: Insulin Detemir 100 UNITS/ML 12 UNITS in Pre-Filled Syringe SC SCH (20:54)
[2018-01-19] MEDS: Sodium Chloride 0.45% 1,000 ML IV SCH (00:25)
[2018-01-19 05:44] LABS: #Eosinphils 0.2 thou/uL (0.0-0.7); #Lymphocytes 1.3 thou/uL (1.20-3.40); #Monocytes 1.8 thou/uL (0.11-0.59); #Neutrophils 15.4 thou/uL (1.40-6.50); %Eosinophils 0.9 % (0.0-10.0); %Lymphocytes 6.8 % (21.0-51.0); %Monocytes 9.8 % (0.0-10.0); %Neutrophils 82.5 % (42.0-75.0); Hemoglobin 10.3 g/dL (12.0-16.0); Mean Corpuscular HGB CONC 31.9 g/dL (32.0-36.0); Mean Corpuscular Hemoglobin 27.2 pg (27.0-31.0); Mean Corpuscular Volume 85.2 fl (81.0-99.0); Mean Platelet Volume 9.5 fL (7.4-10.4); Platelet Count 227 thou/uL (130-400); RBC Distribution Width 13.8 % (11.5-14.5); Red Blood Cell (RBC) Count 3.78 mill/uL (4.20-5.40); White Blood Cell (WBC) Count 18.6 thou/uL (4.8-10.8)
[2018-01-19 05:50] LABS: Anion Gap 14 mmol/L (10-20); BUN (Urea Nitrogen) 116 mg/dL (9.8-20.1); Calc. Creatinine Clearance 58 mL/min (70-130); Carbon Dioxide 23 mmol/L (23-31); Chloride 106 mmol/L (98-107); Estimated GFR-MDRD 40; Glucose 150 mg/dL (83-110); Potassium 4.8 mmol/L (3.5-5.1); Sodium 138 mmol/L (136-145)
[2018-01-19 06:00] LABS: INR-International Normal Ratio 1.4; Prothrombin Time 17.3 SEC (12.0-14.7)
[2018-01-19] MEDS: HumaLOG 300 UNITS/3 ML VIAL SC PRN ×3 (06:27→20:42)
[2018-01-19] MEDS: Heparin 5,000 UNITS/ML VIAL SC SCH ×3 (08:35→20:21)
[2018-01-19] MEDS: Carvedilol 25 MG TAB PO SCH ×2 (08:35→20:21)
[2018-01-19] MEDS: Nystatin Powder 15 GM BOT TOP SCH ×3 (08:35→20:23)
[2018-01-19] MEDS: Famotidine 20 MG TAB PO SCH (08:35)
[2018-01-19] MEDS ORDERED: DC Sedation Protocol FS ONE (09:11)
[2018-01-19] MEDS ORDERED: Furosemide 40 MG/4 ML VIAL SLOW IVP SCH (09:15)
--- NOTE | 2018-01-19 09:30 | PRG ---
DATE OF SERVICE: 01/19/2018 Thirty-five minutes critical care time. SUBJECTIVE: The patient is awake and alert. She is up in a chair. She is interactive with her fami ly. OBJECTIVE: VITAL SIGNS: Temperature 98.1, pulse 70, blood pressure 126/54, 24-hour intake 2746 and output 4035. HEENT: Unremarkable. NECK: No JVD. LUNGS: Coarse rhonchi on the right, clear on the left. CARDIAC: S1 and S2 regular. ABDOMEN: Soft. EXTREMITIES: Trace edema. LABORATORY DATA: White blood cell 18.6, hematocrit 32.2, platelet count 227. INR 1.4. Sodium 138, potassium 4.8, chloride 106, CO2 23, BUN 116, creatinine 1.2, glucose 150. ASSESSMENT: 1. Acute respiratory failure, requiring mechanical ventilation. 2. Acute renal failure. 3. Obstructive sleep apnea. 4. Diabetes mellitus. PLAN: The patient has been on CPAP pressure support for 24 hours with FiO2 of 21%. She is ventilati ng well with that. She is fully interactive off sedation; therefore, I think if we can extubate her and see how she does. I would like to give her some more diuresis today. We will ask edouard alaniz to see her. Family was at the bedside and I spoke with them.
--- NOTE | 2018-01-19 11:33 | PDOC.PN ---
- Subjective Encounter Start Date: 01/19/18 Encounter Start Time: 09:35 family present bedside, pt is on cpap and seated in chair - Objective Resuscitation Status: Resuscitation Status FULL:Full Resuscitation MAR Reviewed: Yes Vital Signs & Weight: Vital Signs (12 hours) Temp Pulse Resp BP Pulse Ox 01/19/18 11:09 71 17 96 01/19/18 11:00 97.5 F L 01/19/18 08:00 98.1 F 70 26 H 01/19/18 07:32 70 170/73 H 01/19/18 07:30 70 18 93 L 01/19/18 04:00 98.6 F 01/19/18 03:22 71 16 94 L 01/19/18 03:20 71 01/19/18 00:00 98.7 F 17 Weight Admit Weight 226 lb 3.2 oz Weight 238 lb 1.588 oz Most Recent Monitor Data Heart Rate from ECG 70 NIBP 131/55 NIBP BP-Mean 79 Respiration from ECG 25 SpO2 95 I&O: 01/18/18 01/19/18 01/20/18 06:59 06:59 06:59 Intake Total 2472 2746 443 Output Total 2115 4035 995 Balance 931 -3499 -342 Result Diagrams: 01/19/18 05:09 01/19/18 05:09 Additional Labs: Accuchecks 01/19/18 01/19/18 01/18/18 08:35 06:18 21:57 POC Glucose 143 H 154 H 254 H 01/18/18 15:32 POC Glucose 298 H EKG Reviewed by me: Yes (nsr) Phys Exam - Physical Examination Constitutional: NAD HEENT: PERRLA, moist MMs, sclera anicteric Neck: no JVD, supple Respiratory: no wheezing, no rales, no rhonchi Cardiovascular: RRR, no significant murmur, no rub Gastrointestinal: soft, non-tender, no distention, positive bowel sounds Musculoskeletal: no edema, pulses present Neurological: non-focal, normal sensation Lymphatic: no nodes Psychiatric: normal affect, A&O x 3 Skin: no rash, normal turgor Dx/Plan (1) Acute respiratory failure with hypoxia and hypercarbia Code(s): J96.01 - ACUTE RESPIRATORY FAILURE WITH HYPOXIA; J96.02 - ACUTE RESPIRATORY FAILURE WITH HYPERCAPNIA Status: Acute (2) Acute renal failure superimposed on stage 3 chronic kidney disease Code(s): N17.9 - ACUTE KIDNEY FAILURE, UNSPECIFIED; N18.3 - CHRONIC KIDNEY DISEASE, STAGE 3 (MODERATE) Status: Acute (3) Community acquired bacterial pneumonia Code(s): J15.9 - UNSPECIFIED BACTERIAL PNEUMONIA Status: Acute (4) Sepsis with acute organ dysfunction Code(s): A41.9 - SEPSIS, UNSPECIFIED ORGANISM; R65.20 - SEVERE SEPSIS WITHOUT SEPTIC SHOCK Status: Acute (5) Supratherapeutic INR Code(s): R79.1 - ABNORMAL COAGULATION PROFILE Status: Resolved Comment: (6) Asthma Code(s): J45.909 - UNSPECIFIED ASTHMA, UNCOMPLICATED Status: Chronic Qualifiers: Asthma severity: moderate Asthma complication type: with acute exacerbation Comment: (7) H/O cardiac pacemaker Code(s): Z95.0 - PRESENCE OF CARDIAC PACEMAKER Status: Chronic (8) HTN (hypertension) Code(s): I10 - ESSENTIAL (PRIMARY) HYPERTENSION Status: Chronic Qualifiers: Hypertension type: essential hypertension Qualified Code(s): I10 - Essential (primary) hypertension Comment: (9) Obesity (BMI 30-39.9) Code(s): E66.9 - OBESITY, UNSPECIFIED Status: Chronic (10) Paroxysmal atrial fibrillation Code(s): I48.0 - PAROXYSMAL ATRIAL FIBRILLATION Status: Chronic (11) Type 2 diabetes mellitus Status: Chronic Qualifiers: Diabetes mellitus complication status: without complication Diabetes mellitus snf insulin use: without long chain dyeing machine operator use Qualified Code(s): E11.9 - Type 2 diabetes mellitus without complications Comment: (12) Acute bronchitis Code(s): J20.9 - ACUTE BRONCHITIS, UNSPECIFIED Status: Acute - Plan cont current plan of care, plan discussed w/ family, continue antibiotics, respiratory therapy * vent per pulmonary * weaning as per pulmonary * tolerating cpap * possible extubation later today * discusse with family * continue cefepime and levaquin * add stool softener for constipation. Review of Systems - Review of Systems Other: unable to review due to intubated status - Medications/Allergies Allergies/Adverse Reactions: Allergies Allergy/AdvReac Type Severity Reaction Status Date / Time No Known Allergies Allergy Verified 04/03/14 10:20 Medications: Current Medications Acetaminophen (Tylenol) 650 mg PO Q4H PRN PRN Reason: Headache/Fever or Pain Last Admin: 01/18/18 20:52 Dose: 650 mg Albuterol/Ipratropium (Duoneb) 3 ml NEB [id number] [facility] Last Admin: 01/19/18 11:09 Dose: 3 ml Albuterol/Ipratropium (Duoneb) 3 ml NEB Q2H PRN PRN Reason: SOB &/or Wheezing Atorvastatin Calcium (Lipitor) 40 mg PO HS [facility] Last Admin: 01/18/18 20:52 Dose: 40 mg Carvedilol (Coreg) 25 mg PO BID [facility] Last Admin: 01/19/18 08:35 Dose: 25 mg Dextrose/Water (Dextrose 50%) 25 gm SLOW IVP PRN PRN PRN Reason: Hypoglycemia Last Admin: 01/07/18 00:09 Dose: 25 gm Famotidine (Pepcid) 20 mg PO DAILY [facility] Last Admin: 01/19/18 08:35 Dose: 20 mg Glucagon (Glucagon) 1 mg IM PRN PRN PRN Reason: Hypoglycemia Heparin Sodium (Porcine) (Heparin) 5,000 units SC TID [facility] Last Admin: 01/19/18 08:35 Dose: 5,000 units Hydralazine HCl (Apresoline) 20 mg SLOW IVP Q15MIN PRN PRN Reason: SBP>180 Last Admin: 01/15/18 11:15 Dose: 20 mg Dextrose/Water (D5w) 1,000 mls @ 0 mls/hr IV .Q0M PRN; As Directed PRN Reason: Hypoglycemia Insulin Detemir 12 units/ (Miscellaneous Medication) 0.12 mls @ 0 mls/hr SC [facility] Last Admin: 01/18/18 20:54 Dose: 0.12 mls Insulin Human Lispro (Humalog) 0 units SC .AGGRESSIVE SLIDING PRN; Protocol PRN Reason: AGGRESSIVE SLIDING SCALE Last Admin: 01/19/18 06:27 Dose: 3 unit Methylprednisolone Sodium Succinate (Solu-Medrol) 20 mg IVP DAILY [facility] Last Admin: 01/19/18 08:35 Dose: 20 mg Mineral Oil/White Petrolatum (Lacri-Lube Ointment) 0 gm EA EYE PRN PRN PRN Reason: Dry Eyes Nystatin (Mycostatin Powder) 0 gm TOP TID [facility] Last Admin: 01/19/18 08:35 Dose: 1 applic Sodium Chloride (Flush - Normal Saline) 10 ml IVF Q12HR [facility] Last Admin: 01/19/18 08:37 Dose: 10 ml Sodium Chloride (Flush - Normal Saline) 10 ml IVF PRN PRN PRN Reason: Saline Flush Last Admin: 01/18/18 09:40 Dose: 10 ml
[2018-01-19] MEDS ORDERED: Fleet Enema 133 ML BOT PR PRN (11:34)
[2018-01-19] MEDS ORDERED: Bisacodyl 10 MG SUPP PR PRN (11:34)
[2018-01-19] MEDS: Atorvastatin Calcium 40 MG TAB PO SCH (20:21)
[2018-01-19] MEDS: Insulin Detemir 100 UNITS/ML 12 UNITS in Pre-Filled Syringe SC SCH (20:22)
[2018-01-20 04:57] LABS: #Eosinphils 0.2 thou/uL (0.0-0.7); #Lymphocytes 1.5 thou/uL (1.20-3.40); #Monocytes 1.3 thou/uL (0.11-0.59); #Neutrophils 8.5 thou/uL (1.40-6.50); %Eosinophils 1.4 % (0.0-10.0); %Lymphocytes 13.3 % (21.0-51.0); %Monocytes 11.7 % (0.0-10.0); %Neutrophils 73.6 % (42.0-75.0); Hemoglobin 10.1 g/dL (12.0-16.0); Mean Corpuscular HGB CONC 32.1 g/dL (32.0-36.0); Mean Corpuscular Hemoglobin 27.3 pg (27.0-31.0); Mean Platelet Volume 10.1 fL (7.4-10.4); Platelet Count 236 thou/uL (130-400); RBC Distribution Width 13.9 % (11.5-14.5); Red Blood Cell (RBC) Count 3.71 mill/uL (4.20-5.40); White Blood Cell (WBC) Count 11.5 thou/uL (4.8-10.8)
[2018-01-20 05:02] LABS: INR-International Normal Ratio 1.3; Prothrombin Time 16.8 SEC (12.0-14.7)
[2018-01-20 05:12] LABS: Anion Gap 11 mmol/L (10-20); BUN (Urea Nitrogen) 94 mg/dL (9.8-20.1); Calc. Creatinine Clearance 64 mL/min (70-130); Calcium 9.5 mg/dL (7.8-10.44); Carbon Dioxide 31 mmol/L (23-31); Chloride 103 mmol/L (98-107); Estimated GFR-MDRD 47; Glucose 79 mg/dL (83-110); Potassium 4.6 mmol/L (3.5-5.1); Sodium 140 mmol/L (136-145)
[2018-01-20] MEDS: Polyethylene Glycol 3350 17 GM Packet PO SCH (08:33)
[2018-01-20] MEDS: Famotidine 20 MG TAB PO SCH (08:37)
[2018-01-20] MEDS: Carvedilol 25 MG TAB PO SCH ×2 (08:37→21:11)
[2018-01-20] MEDS: Heparin 5,000 UNITS/ML VIAL SC SCH ×3 (08:37→21:11)
[2018-01-20] MEDS: Nystatin Powder 15 GM BOT TOP SCH ×3 (08:38→21:17)
--- NOTE | 2018-01-20 08:53 | PRG ---
DATE OF SERVICE: 01/20/2018 SUBJECTIVE: She is awake in a chair, doing well, has no complaints. PHYSICAL EXAMINATION: VITAL SIGNS: Temperature is 97.9, pulse 70, blood pressure 121/58. A 24-hour intake 1709, output 49 15. HEENT: Unremarkable. NECK: No JVD. CHEST: Clear without wheezing. CARDIAC: S1 and S2 regular. ABDOMEN: Soft. EXTREMITIES: Trace edema. LABORATORY DATA: Sodium 140, potassium 4.6, chloride 103, CO2 31, BUN 94, creatinine 1.1, glucose 79 . INR is 1.3. White blood cell count 11.5, hematocrit 31.6, platelet count 236. ASSESSMENT: 1. Chronic obstructive pulmonary disease with exacerbation. 2. Status post acute respiratory failure. 3. Chronically anticoagulated with warfarin. PLAN: 1. Restart the warfarin. 2. Transfer to medical floor. 3. Initiate physical therapy. 4. Continue steroids, nebulization therapy.
--- NOTE | 2018-01-20 10:16 | PDOC.PN ---
- Subjective Encounter Start Date: 01/20/18 Encounter Start Time: 09:45 pt is doing well after extubation, no fever, has mild cough, has no BM yet - Objective Resuscitation Status: Resuscitation Status FULL:Full Resuscitation MAR Reviewed: Yes Vital Signs & Weight: Vital Signs (12 hours) Temp Pulse Resp Pulse Ox 01/20/18 08:00 97.9 F 70 28 H 01/20/18 07:00 97.9 F 01/20/18 06:57 97 01/20/18 06:56 70 23 H 97 01/20/18 04:00 98 F 01/20/18 02:01 71 17 95 01/20/18 00:00 98 F Weight Admit Weight 226 lb 3.2 oz Weight 232 lb 5.875 oz Most Recent Monitor Data Heart Rate from ECG 70 NIBP 121/58 NIBP BP-Mean 68 Respiration from ECG 15 SpO2 94 I&O: 01/19/18 01/20/18 01/21/18 06:59 06:59 06:59 Intake Total 2746 1708 700 Output Total 4035 4915 170 Balance -1289 -3207 530 Result Diagrams: 01/20/18 04:00 01/20/18 04:00 Additional Labs: Accuchecks 01/20/18 01/20/18 01/19/18 08:33 04:15 20:41 POC Glucose 131 H 84 153 H 01/19/18 15:00 POC Glucose 261 H EKG Reviewed by me: Yes (nsr) Phys Exam - Physical Examination Constitutional: NAD HEENT: PERRLA, moist MMs, sclera anicteric Neck: no JVD, supple Respiratory: no wheezing, no rales, no rhonchi Cardiovascular: RRR, no significant murmur, no rub Gastrointestinal: soft, non-tender, no distention, positive bowel sounds Musculoskeletal: no edema, pulses present Neurological: non-focal, normal sensation Lymphatic: no nodes Psychiatric: normal affect, A&O x 3 Skin: no rash, normal turgor Dx/Plan (1) Acute respiratory failure with hypoxia and hypercarbia Code(s): J96.01 - ACUTE RESPIRATORY FAILURE WITH HYPOXIA; J96.02 - ACUTE RESPIRATORY FAILURE WITH HYPERCAPNIA Status: Acute (2) Acute renal failure superimposed on stage 3 chronic kidney disease Code(s): N17.9 - ACUTE KIDNEY FAILURE, UNSPECIFIED; N18.3 - CHRONIC KIDNEY DISEASE, STAGE 3 (MODERATE) Status: Acute (3) Community acquired bacterial pneumonia Code(s): J15.9 - UNSPECIFIED BACTERIAL PNEUMONIA Status: Acute (4) Sepsis with acute organ dysfunction Code(s): A41.9 - SEPSIS, UNSPECIFIED ORGANISM; R65.20 - SEVERE SEPSIS WITHOUT SEPTIC SHOCK Status: Acute (5) Supratherapeutic INR Code(s): R79.1 - ABNORMAL COAGULATION PROFILE Status: Resolved Comment: (6) Asthma Code(s): J45.909 - UNSPECIFIED ASTHMA, UNCOMPLICATED Status: Chronic Qualifiers: Asthma severity: moderate Asthma complication type: with acute exacerbation Comment: (7) H/O cardiac pacemaker Code(s): Z95.0 - PRESENCE OF CARDIAC PACEMAKER Status: Chronic (8) HTN (hypertension) Code(s): I10 - ESSENTIAL (PRIMARY) HYPERTENSION Status: Chronic Qualifiers: Hypertension type: essential hypertension Qualified Code(s): I10 - Essential (primary) hypertension Comment: (9) Obesity (BMI 30-39.9) Code(s): E66.9 - OBESITY, UNSPECIFIED Status: Chronic (10) Paroxysmal atrial fibrillation Code(s): I48.0 - PAROXYSMAL ATRIAL FIBRILLATION Status: Chronic (11) Type 2 diabetes mellitus Status: Chronic Qualifiers: Diabetes mellitus complication status: without complication Diabetes mellitus senior care insulin use: without senior care use Qualified Code(s): E11.9 - Type 2 diabetes mellitus without complications Comment: (12) Acute bronchitis Code(s): J20.9 - ACUTE BRONCHITIS, UNSPECIFIED Status: Acute - Plan cont current plan of care, continue antibiotics, PT/OT, 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 Review of Systems - Review of Systems Constitutional: weakness. negative: fever, chills, sweats, malaise, other ENT: negative: Ear Pain, Ear Discharge, Nose Pain, Nose Discharge, Nose Congestion, Mouth Pain, Mouth Swelling, Throat Pain, Throat Swelling, Other Respiratory: negative: Cough, Dry, Shortness of Breath, Hemoptysis, SOB with Excertion, Pleuritic Pain, Sputum, Wheezing Cardiovascular: negative: chest pain, palpitations, orthopnea, paroxysmal nocturnal dyspnea, edema, light headedness, other Gastrointestinal: negative: Nausea, Vomiting, Abdominal Pain, Diarrhea, Constipation, Melena, Hematochezia, Other Genitourinary: negative: Dysuria, Frequency, Incontinence, Hematuria, Retention , Other Musculoskeletal: negative: Neck Pain, Shoulder Pain, Arm Pain, Back Pain, Hand Pain, Leg Pain, Foot Pain, Other Skin: negative: Rash, Lesions, Lars, Bruising, Other - Medications/Allergies Allergies/Adverse Reactions: Allergies Allergy/AdvReac Type Severity Reaction Status Date / Time No Known Allergies Allergy Verified 04/03/14 10:20 Medications: Current Medications Acetaminophen (Tylenol) 650 mg PO Q4H PRN PRN Reason: Headache/Fever or Pain Last Admin: 01/18/18 20:52 Dose: 650 mg Albuterol/Ipratropium (Duoneb) 3 ml NEB [id number] [facility] Last Admin: 01/20/18 06:56 Dose: 3 ml Albuterol/Ipratropium (Duoneb) 3 ml NEB Q2H PRN PRN Reason: SOB &/or Wheezing Atorvastatin Calcium (Lipitor) 40 mg PO HS [facility] Last Admin: 01/19/18 20:21 Dose: 40 mg Bisacodyl (Dulcolax) 10 mg AR Q8H PRN PRN Reason: Constipation Last Admin: 01/20/18 08:37 Dose: 10 mg Carvedilol (Coreg) 25 mg PO BID [facility] Last Admin: 01/20/18 08:37 Dose: 25 mg Dextrose/Water (Dextrose 50%) 25 gm SLOW IVP PRN PRN PRN Reason: Hypoglycemia Last Admin: 01/07/18 00:09 Dose: 25 gm Famotidine (Pepcid) 20 mg PO DAILY [facility] Last Admin: 01/20/18 08:37 Dose: 20 mg Glucagon (Glucagon) 1 mg IM PRN PRN PRN Reason: Hypoglycemia Heparin Sodium (Porcine) (Heparin) 5,000 units SC TID [facility] Last Admin: 01/20/18 08:37 Dose: 5,000 units Hydralazine HCl (Apresoline) 20 mg SLOW IVP Q15MIN PRN PRN Reason: SBP>180 Last Admin: 01/15/18 11:15 Dose: 20 mg Dextrose/Water (D5w) 1,000 mls @ 0 mls/hr IV .Q0M PRN; As Directed PRN Reason: Hypoglycemia Insulin Detemir 12 units/ (Miscellaneous Medication) 0.12 mls @ 0 mls/hr SC [facility] Last Admin: 01/19/18 20:22 Dose: 0.12 mls Insulin Human Lispro (Humalog) 0 units SC .AGGRESSIVE SLIDING PRN; Protocol PRN Reason: AGGRESSIVE SLIDING SCALE Last Admin: 01/19/18 20:42 Dose: 3 unit Methylprednisolone Sodium Succinate (Solu-Medrol) 20 mg IVP DAILY [facility] Last Admin: 01/20/18 08:37 Dose: 20 mg Mineral Oil/White Petrolatum (Lacri-Lube Ointment) 0 gm EA EYE PRN PRN PRN Reason: Dry Eyes Nystatin (Mycostatin Powder) 0 gm TOP TID [facility] Last Admin: 01/20/18 08:38 Dose: 1 applic Polyethylene Glycol (Miralax) 17 gm PO DAILY [facility] Last Admin: 01/20/18 08:33 Dose: 17 gm Warfarin Sodium (Coumadin) 2.5 mg PO 1700 [facility]
[2018-01-20 14:03] VITALS: BMI 36.3
[2018-01-20] MEDS: HumaLOG 300 UNITS/3 ML VIAL SC PRN (16:34)
[2018-01-20] MEDS ORDERED: Warfarin Sodium 2.5 MG TAB PO SCH (17:00)
[2018-01-20] MEDS: Atorvastatin Calcium 40 MG TAB PO SCH (21:11)
[2018-01-20] MEDS: Insulin Detemir 100 UNITS/ML 12 UNITS in Pre-Filled Syringe SC SCH (21:12)
[2018-01-21 05:25] LABS: INR-International Normal Ratio 1.4; Prothrombin Time 17.7 SEC (12.0-14.7)
[2018-01-21 05:34] LABS: Anion Gap 10 mmol/L (10-20); BUN (Urea Nitrogen) 72 mg/dL (9.8-20.1); Calc. Creatinine Clearance 74 mL/min (70-130); Calcium 9.3 mg/dL (7.8-10.44); Carbon Dioxide 29 mmol/L (23-31); Chloride 107 mmol/L (98-107); Estimated GFR-MDRD 55; Glucose 96 mg/dL (83-110); Potassium 5.2 mmol/L (3.5-5.1); Sodium 141 mmol/L (136-145)
[2018-01-21] MEDS ORDERED: predniSONE 20 MG TAB PO SCH (08:00)
[2018-01-21] MEDS ORDERED: metFORMIN 500 MG TAB PO SCH (08:00)
[2018-01-21] MEDS: Carvedilol 25 MG TAB PO SCH (08:05)
[2018-01-21] MEDS: Famotidine 20 MG TAB PO SCH (08:05)
[2018-01-21] MEDS: Heparin 5,000 UNITS/ML VIAL SC SCH (08:05)
[2018-01-21] MEDS: Polyethylene Glycol 3350 17 GM Packet PO SCH (08:06)
[2018-01-21] MEDS: Nystatin Powder 15 GM BOT TOP SCH (08:06)
[2018-01-21 08:44] VITALS: BP 152/79; TEMP 98.4
--- NOTE | 2018-01-21 09:44 | PDOC.PULPN ---
Progress Note: Subj/Obj - Subjective Date: 01/21/18 Time: 09:42 Narrative: The patient is doing well and has no acute complaints. - ROS Respiratory: no reported symptoms - Objective Allergies/Adverse Reactions: Allergies Allergy/AdvReac Type Severity Reaction Status Date / Time No Known Allergies Allergy Verified 04/03/14 10:20 MAR Reviewed: Yes Vital Signs: Vital Signs Temp 98.4 F 01/21/18 08:00 Pulse 71 01/21/18 08:00 Resp 20 01/21/18 08:00 BP 152/79 H 01/21/18 08:00 Pulse Ox 99 01/21/18 08:00 Intake & Output 01/20/18 01/21/18 01/21/18 18:59 06:59 18:59 Intake Total 1180 600 Output Total 1100 1000 Balance 80 -400 Weight 232 lb 5.875 oz 232 lb 1.6 oz Intake: Oral 1180 600 Output: Output, Elliott 1100 1000 Other: Voiding Method Indwelling Catheter Indwelling Catheter Indwelling Catheter # Bowel Movements 2 1 Progress Note: Exam - Physical Exam Constitutional: NAD HEENT: PERRLA, sclera anicteric Neck: no nodes, no JVD Cardiovascular: RRR Respiratory: clear to auscultation anteriorly Gastrointestinal: soft, non-tender Musculoskeletal: edema present Neurological: non-focal, moves all 4 limbs Lymphatic: no nodes Psychiatric: normal affect, A&O x 3 Skin: no rash Progress Note: Data - Labs Result Diagrams: 01/20/18 04:00 01/21/18 04:37 Progress Note: A/P - Problems (1) Acute renal failure superimposed on stage 3 chronic kidney disease Current Visit: Yes Status: Acute Code(s): N17.9 - ACUTE KIDNEY FAILURE, UNSPECIFIED; N18.3 - CHRONIC KIDNEY DISEASE, STAGE 3 (MODERATE) (2) Acute respiratory failure with hypoxia and hypercarbia Current Visit: Yes Status: Acute Code(s): J96.01 - ACUTE RESPIRATORY FAILURE WITH HYPOXIA; J96.02 - ACUTE RESPIRATORY FAILURE WITH HYPERCAPNIA (3) Community acquired bacterial pneumonia Current Visit: Yes Status: Acute Code(s): J15.9 - UNSPECIFIED BACTERIAL PNEUMONIA (4) CLEMENCIA (obstructive sleep apnea) Current Visit: Yes Status: Chronic Code(s): G47.33 - OBSTRUCTIVE SLEEP APNEA (ADULT) (PEDIATRIC) - Plan Plan: The patient's condition has improved to the point to where her main issue now is one of rehabilitation. She needs to be evaluated for inpatient rehab and/or half-way. Her prednisone can be tapered over 2 weeks. Please note her warfarin was restarted yesterday and her INR needs to be followed closely. Pulmonary will be available over the weekend as needed
--- NOTE | 2018-01-21 09:50 | PDOC.PN ---
- Subjective Encounter Start Date: 01/21/18 Encounter Start Time: 07:45 Patient seen and examined. No new complaints. No overnight events - Objective Resuscitation Status: Resuscitation Status FULL:Full Resuscitation MAR Reviewed: Yes Vital Signs & Weight: Vital Signs (12 hours) Temp Pulse Resp BP Pulse Ox 01/21/18 08:00 98.4 F 71 20 152/79 H 99 01/21/18 07:48 92 L 01/21/18 07:45 70 20 92 L 01/21/18 04:00 99.0 F 71 16 123/73 92 L 01/21/18 02:53 95 01/21/18 01:54 68 20 95 01/21/18 00:00 98.7 F 69 22 H 144/66 H 99 Weight Admit Weight 226 lb 3.2 oz Weight 232 lb 1.6 oz Most Recent Monitor Data Heart Rate from ECG 70 NIBP 125/65 NIBP BP-Mean 68 Respiration from ECG 24 SpO2 93 I&O: 01/20/18 01/21/18 01/22/18 06:59 06:59 06:59 Intake Total 1708 1780 Output Total 4915 2100 Balance -3207 -320 Result Diagrams: 01/20/18 04:00 01/21/18 04:37 Additional Labs: Accuchecks 01/21/18 01/20/18 01/20/18 05:41 20:01 15:56 POC Glucose 95 134 H 208 H 01/20/18 13:05 POC Glucose 222 H Phys Exam - Physical Examination Constitutional: NAD HEENT: PERRLA, moist MMs, sclera anicteric Neck: no JVD, supple Respiratory: no wheezing, no rales, no rhonchi Cardiovascular: RRR, no significant murmur, no rub Gastrointestinal: soft, non-tender, no distention, positive bowel sounds Musculoskeletal: no edema, pulses present Neurological: non-focal, normal sensation Psychiatric: normal affect, A&O x 3 Skin: no rash, normal turgor Dx/Plan (1) Acute respiratory failure with hypoxia and hypercarbia Code(s): J96.01 - ACUTE RESPIRATORY FAILURE WITH HYPOXIA; J96.02 - ACUTE RESPIRATORY FAILURE WITH HYPERCAPNIA Status: Acute (2) Acute renal failure superimposed on stage 3 chronic kidney disease Code(s): N17.9 - ACUTE KIDNEY FAILURE, UNSPECIFIED; N18.3 - CHRONIC KIDNEY DISEASE, STAGE 3 (MODERATE) Status: Acute (3) Community acquired bacterial pneumonia Code(s): J15.9 - UNSPECIFIED BACTERIAL PNEUMONIA Status: Acute (4) Sepsis with acute organ dysfunction Code(s): A41.9 - SEPSIS, UNSPECIFIED ORGANISM; R65.20 - SEVERE SEPSIS WITHOUT SEPTIC SHOCK Status: Acute (5) Supratherapeutic INR Code(s): R79.1 - ABNORMAL COAGULATION PROFILE Status: Resolved Comment: (6) Asthma Code(s): J45.909 - UNSPECIFIED ASTHMA, UNCOMPLICATED Status: Chronic Qualifiers: Asthma severity: moderate Asthma complication type: with acute exacerbation Comment: (7) H/O cardiac pacemaker Code(s): Z95.0 - PRESENCE OF CARDIAC PACEMAKER Status: Chronic (8) HTN (hypertension) Code(s): I10 - ESSENTIAL (PRIMARY) HYPERTENSION Status: Chronic Qualifiers: Hypertension type: essential hypertension Qualified Code(s): I10 - Essential (primary) hypertension Comment: (9) Obesity (BMI 30-39.9) Code(s): E66.9 - OBESITY, UNSPECIFIED Status: Chronic (10) Paroxysmal atrial fibrillation Code(s): I48.0 - PAROXYSMAL ATRIAL FIBRILLATION Status: Chronic (11) Type 2 diabetes mellitus Status: Chronic Qualifiers: Diabetes mellitus complication status: without complication Diabetes mellitus alf insulin use: without equipment operator intermodal yard use Qualified Code(s): E11.9 - Type 2 diabetes mellitus without complications Comment: (12) Acute bronchitis Code(s): J20.9 - ACUTE BRONCHITIS, UNSPECIFIED Status: Acute - Plan cont current plan of care, PT/OT, delinquency prevention social worker, respiratory therapy * ROMERO mast * if rehab or SNU available today, will consider discharge * DC levemir * start home dose of glucotrol, metformin * dc solumedrol and start prednisone * medication reviewed as below * symptomatic treatment. Review of Systems - Review of Systems ENT: negative: Ear Pain, Ear Discharge, Nose Pain, Nose Discharge, Nose Congestion, Mouth Pain, Mouth Swelling, Throat Pain, Throat Swelling, Other Respiratory: negative: Cough, Dry, Shortness of Breath, Hemoptysis, SOB with Excertion, Pleuritic Pain, Sputum, Wheezing Cardiovascular: negative: chest pain, palpitations, orthopnea, paroxysmal nocturnal dyspnea, edema, light headedness, other Gastrointestinal: negative: Nausea, Vomiting, Abdominal Pain, Diarrhea, Constipation, Melena, Hematochezia, Other Genitourinary: negative: Dysuria, Frequency, Incontinence, Hematuria, Retention , Other Musculoskeletal: negative: Neck Pain, Shoulder Pain, Arm Pain, Back Pain, Hand Pain, Leg Pain, Foot Pain, Other Skin: negative: Rash, Lesions, Lars, Bruising, Other - Medications/Allergies Allergies/Adverse Reactions: Allergies Allergy/AdvReac Type Severity Reaction Status Date / Time No Known Allergies Allergy Verified 04/03/14 10:20 Medications: Current Medications Acetaminophen (Tylenol) 650 mg PO Q4H PRN PRN Reason: Headache/Fever or Pain Last Admin: 01/18/18 20:52 Dose: 650 mg Albuterol/Ipratropium (Duoneb) 3 ml NEB [id number] [facility] Last Admin: 01/21/18 07:45 Dose: 3 ml Albuterol/Ipratropium (Duoneb) 3 ml NEB Q2H PRN PRN Reason: SOB &/or Wheezing Atorvastatin Calcium (Lipitor) 40 mg PO HS [facility] Last Admin: 01/20/18 21:11 Dose: 40 mg Bisacodyl (Dulcolax) 10 mg SC Q8H PRN PRN Reason: Constipation Last Admin: 01/20/18 08:37 Dose: 10 mg Carvedilol (Coreg) 25 mg PO BID [facility] Last Admin: 01/21/18 08:05 Dose: 25 mg Dextrose/Water (Dextrose 50%) 25 gm SLOW IVP PRN PRN PRN Reason: Hypoglycemia Last Admin: 01/07/18 00:09 Dose: 25 gm Famotidine (Pepcid) 20 mg PO DAILY [facility] Last Admin: 01/21/18 08:05 Dose: 20 mg Glipizide (Glucotrol Xl) 5 mg PO QAM-[facility] Last Admin: 01/21/18 09:48 Dose: 5 mg Glucagon (Glucagon) 1 mg IM PRN PRN PRN Reason: Hypoglycemia Heparin Sodium (Porcine) (Heparin) 5,000 units SC TID [facility] Last Admin: 01/21/18 08:05 Dose: 5,000 units Hydralazine HCl (Apresoline) 20 mg SLOW IVP Q15MIN PRN PRN Reason: SBP>180 Last Admin: 01/15/18 11:15 Dose: 20 mg Dextrose/Water (D5w) 1,000 mls @ 0 mls/hr IV .Q0M PRN; As Directed PRN Reason: Hypoglycemia Insulin Human Lispro (Humalog) 0 units SC .AGGRESSIVE SLIDING PRN; Protocol PRN Reason: AGGRESSIVE SLIDING SCALE Last Admin: 01/20/18 16:34 Dose: 6 unit Metformin HCl (Glucophage) 500 mg PO BID-[facility] Last Admin: 01/21/18 08:05 Dose: 500 mg Mineral Oil/White Petrolatum (Lacri-Lube Ointment) 0 gm EA EYE PRN PRN PRN Reason: Dry Eyes Nystatin (Mycostatin Powder) 0 gm TOP TID [facility] Last Admin: 01/21/18 08:06 Dose: 1 applic Polyethylene Glycol (Miralax) 17 gm PO DAILY [facility] Last Admin: 01/21/18 08:06 Dose: 17 gm Prednisone (Prednisone) 20 mg PO QAM-[facility] Last Admin: 01/21/18 08:05 Dose: 20 mg Warfarin Sodium (Coumadin) 2.5 mg PO 1700 [facility] Last Admin: 01/20/18 17:54 Dose: 2.5 mg
--- NOTE | 2018-01-21 09:52 | DIS ---
PRIMARY CARE PHYSICIAN: [facility]. DATE OF ADMISSION: 01/06/2018 DATE OF DISCHARGE: 01/21/2018 DISCHARGE DISPOSITION: intermediate home versus rehabilitation. PRIMARY DISCHARGE DIAGNOSES: Acute bronchitis, acute kidney failure, acute respiratory failure with hypoxia and hypercapnia, community-acquired bacterial pneumonia, sepsis with acute organ dysfunction, supratherapeutic INR. SECONDARY DISCHARGE DIAGNOSES: Diabetes type 2, paroxysmal atrial fibrillation , morbid obesity with BMI 36, obstructive sleep apnea, asthma, hypertension, pacemaker. PRIMARY PROCEDURE/OPERATION: Endotracheal intubation and mechanical ventilator support, central line placement. RADIOLOGICAL INVESTIGATION: Patient had several chest x-rays, CT chest. SIGNIFICANT LABS: WBC 11.5, hemoglobin 10.1, and platelets are 236. INR 1.4. Sodium 141, potassium 5.2, BUN 72, creatinine 0.97, calcium 9.3, troponin 0.134 , BNP 765. Liver enzymes normal. Urinalysis suggestive of UTI. Blood culture negative, influenza negative. DISCHARGE MEDICATIONS: Albuterol sulfate nebulization q.4 hourly p.r.n., ProAir HFA 2 puffs q.4 hourly p.r.n., Lipitor 40 mg p.o. at bedtime, Coreg 25 mg p.o. b.i.d., Colace 50 mg p.o. daily p.r.n., Pepcid 20 mg p.o. b.i.d., iron 325 mg p.o. daily, Lasix 20 mg p.o. daily, glipizide ER 5 mg p.o. daily, Mucinex 1200 mg spray, Humalog insulin as per sliding scale, indomethacin 50 mg t.i.d. p.r.n. for gout, lisinopril 2.5 mg p.o. daily, metformin 500 mg p.o. b.i.d., prednisone 20 mg p.o. daily for 5 days, warfarin 2.5 mg p.o. daily. CONTRAINDICATIONS: None. CODE STATUS: FULL CODE. INPATIENT CONSULTANTS: Dr. Talavera and Alfonso, and Dr. Zarate were following while in hospital. Dr. Mccloud was following for kidney failure. TEST RESULTS PENDING ON DISCHARGE: None. ALLERGIES: No known drug allergy. DISCHARGE PLAN: Post hospital, the patient is planned for discharge to [facility] home versus rehab had been approved. HOSPITAL COURSE: An 82-year-old female who was admitted by Dr. Banda on 2017. Please see his H&P for further details. This patient was admitted for increasing shortness of breath, cough, nonproductive with clear sputum. Patient was also having fever in the emergency room. This patient had chest x- ray which showed pneumonia at the right lung base. She had acute kidney failure. She was meeting sepsis with acute organ dysfunction criteria. Renal ultrasound was unremarkable. Dr. Mccloud was following for renal failure. By the time of discharge, the patient's renal failure completely improved. This patient was having bronchitis with pneumonia and Dr. Talavera was following. This patient was not improving with broad spectrum antibiotic therapy. She was given cefepime and Levaquin. Her influenza screen was negative. She developed respiratory distress and asthma exacerbation. She is also having respiratory fatigue with coughing spell and ongoing respiratory insufficiency and she required intubation. Central line was placed for poor IV access. Patient has completely finished antibiotic course while in hospital. She was also given steroid. Her diabetes was controlled with medication as above. While in hospital, we started her on Levemir, but on discharge, we continued all her previous home medications. This patient has physical deconditioning and that is why she needs placement and with the help of test case developer, we are sending her to either rehab or [facility] home. This patient was extubated and she did very well and after that, we transferred her to medical floor. Now, she is doing PT, OT. We are waiting for her placement. The patient is seen and examined at bedside today. I have discontinued Levemir insulin today and started on her Glucotrol and metformin. She had constipation in ICU, but now she has good bowel movement and her constipation resolved. She was on IV steroid, we changed to p.o. prednisone. She is getting warfarin 2.5 mg and we will monitor PT/INR at long-term as well. PHYSICAL EXAMINATION: VITAL SIGNS: Today, the patient's temperature 98.4, pulse 71, respiratory rate 20, saturation 99%, blood pressure 152/79. Weight 232 pounds. GENERAL: The patient is currently alert, awake, no obvious acute distress. HEENT: Head is normocephalic, atraumatic. Eyes: Pupils are round, reactive to light. Extraocular muscles are intact. ENT: Oropharynx within normal limits. Moist mucous membranes. No oral lesions. No pharyngeal erythema, no exudates. NECK: Supple, no JVD, no thyromegaly, no carotid bruit. LUNGS: Clear to auscultation without any rhonchi or rales. CARDIAC: S1, S2 regular without any significant murmur. ABDOMEN: Soft and benign. EXTREMITIES: No edema. NEUROLOGIC: Nonfocal examination. Overall, the patient is medically stable for discharge when we have placement arranged. Total time spent on discharge day more than 30 minutes. YEFRID
[2018-01-21] MEDS: HumaLOG 300 UNITS/3 ML VIAL SC PRN (12:41)
--- NOTE | 2018-02-05 15:56 | EKG ---
Test Reason : Blood Pressure : / mmHG Vent. Rate : 073 BPM Atrial Rate : 069 BPM P-R Int : 000 ms QRS Dur : 152 ms QT Int : 436 ms P-R-T Axes : 000 -71 082 degrees QTc Int : 480 ms Electronic ventricular pacemaker Confirmed by PREET VIERA, LORRAINE ([id number]), order editor POPPY VALENCIA ([id number]) on 02/05/2018 3:55:57 PM Referred By: Confirmed By:LORRAIEN OVIEDO MD
== END 2018-01-21 14:45 | DRG 870 ==
LOC: ERS 15:32 → 2NO 17:20 → IMCU/EMU 01-08 15:38 → CCU 01-11 14:10 → T4-B 01-20 12:24
PROVIDERS: ADMIT Internal Medicine; ATTEND Internal Medicine
PROC: 02HV33Z Insertion of Infusion Device into Superior Vena Cava, Percutaneous Approach (ICD-10-PCS; principal; 2018-01-09)
PROC: 5A1955Z Respiratory Ventilation, Greater than 96 Consecutive Hours (ICD-10-PCS; 2018-01-12)
PROC: 0BH17EZ Insertion of Endotracheal Airway into Trachea, Via Natural or Artificial Opening (ICD-10-PCS; 2018-01-12)
DX: A41.9 Sepsis, unspecified organism (principal); J15.9 Unspecified bacterial pneumonia; G93.41 Metabolic encephalopathy; N17.9 Acute kidney failure, unspecified; J44.0 Chronic obstructive pulmonary disease with (acute) lower respiratory infection; J96.01 Acute respiratory failure with hypoxia; J96.02 Acute respiratory failure with hypercapnia; J44.1 Chronic obstructive pulmonary disease with (acute) exacerbation; E11.22 Type 2 diabetes mellitus with diabetic chronic kidney disease; I48.0 Paroxysmal atrial fibrillation; N18.3 Chronic kidney disease, stage 3 (moderate); J45.41 Moderate persistent asthma with (acute) exacerbation; I48.92 Unspecified atrial flutter; E66.01 Morbid (severe) obesity due to excess calories; I25.10 Atherosclerotic heart disease of native coronary artery without angina pectoris; Z79.84 Long term (current) use of oral hypoglycemic drugs; G47.33 Obstructive sleep apnea (adult) (pediatric); Z85.048 Personal history of other malignant neoplasm of rectum, rectosigmoid junction, and anus; Z95.0 Presence of cardiac pacemaker; Z79.01 Long term (current) use of anticoagulants; R65.20 Severe sepsis without septic shock; I12.9 Hypertensive chronic kidney disease with stage 1 through stage 4 chronic kidney disease, or unspecified chronic kidney disease; J20.9 Acute bronchitis, unspecified; Z68.36 Body mass index [BMI] 36.0-36.9, adult; M19.90 Unspecified osteoarthritis, unspecified site; Z85.038 Personal history of other malignant neoplasm of large intestine; R79.1 Abnormal coagulation profile
CPT/HCPCS: 36415; 36416; 71045; 71250; 76770; 80048; 80053; 80069; 81001; 82553; 82570; 82805; 83605; 83735; 83880; 84100; 84300; 84484; 85025; 85610; 87040; 87804; 93005; 94002; 94003; 94640; 94660; 94760; 96365; J2270; A4216; G8978-GP-CM; G8979-GP-CK; G8987-GO-CL; G8988-GO-CJ; J0360; J0692; J1644; J1815; J1940; J1956; J2060; J2250; J2704; J2920; J3430; J3475; J7506; J7620; J7626

== ENCOUNTER 2018-03-02 09:34 | Outpatient (CLI) | payer MEDICARE ==
--- NOTE | 2018-03-02 11:58 | RAD ---
PA AND LATERAL VIEWS CHEST: HISTORY: Dyspnea. FINDINGS: Comparison is made with the exam of 01/16/18. The heart size is enlarged. The left-sided pacemaker device is again seen. The aorta is tortuous. There is evidence of old granulomatous disease. The lungs are expanded without focal areas of consol idation, pneumothorax, brennan pulmonary edema, or pleural effusions. IMPRESSION: No radiographic evidence of acute cardiopulmonary process. POS: OFF
== END 2018-03-02 09:35 | disposition home or self-care (01) ==
LOC: RAD 09:34
DX: R06.00 Dyspnea, unspecified (principal)
CPT/HCPCS: 71046

== ENCOUNTER 2018-03-08 19:21 | Emergency (ER) | payer MEDICARE ==
[2018-03-08 20:10] LABS: #Basophils 0.1 thou/uL (0.0-0.2); #Eosinphils 0.2 thou/uL (0.0-0.7); #Lymphocytes 2.7 thou/uL (1.20-3.40); #Neutrophils 5.6 thou/uL (1.40-6.50); %Basophils 0.9 % (0.0-1.0); %Lymphocytes 28.3 % (21.0-51.0); %Monocytes 10.2 % (0.0-10.0); %Neutrophils 58.6 % (42.0-75.0); Mean Corpuscular HGB CONC 32.3 g/dL (32.0-36.0); Mean Corpuscular Hemoglobin 27.4 pg (27.0-31.0); Mean Corpuscular Volume 84.7 fl (81.0-99.0); Mean Platelet Volume 7.5 fL (7.4-10.4); Platelet Count 508 thou/uL (130-400); Red Blood Cell (RBC) Count 4.75 mill/uL (4.20-5.40); White Blood Cell (WBC) Count 9.6 thou/uL (4.8-10.8)
[2018-03-08 20:18] LABS: INR-International Normal Ratio 1.8; PTT 33.4 SEC (22.9-36.1); Prothrombin Time 21.4 SEC (12.0-14.7)
[2018-03-08 20:37] LABS: ALT (SGPT) 21 U/L (8-55); AST (SGOT) 25 U/L (5-34); Albumin 2.9 g/dL (3.4-4.8); Alkaline Phosphatase 96 U/L (40-150); Anion Gap 12 mmol/L (10-20); BUN (Urea Nitrogen) 14 mg/dL (9.8-20.1); Bilirubin, Total 0.6 mg/dL (0.2-1.2); CK (CPK) 13 U/L (29-168); CKMB 0.9 ng/mL (0-6.6); Calc. Creatinine Clearance 0 mL/min (70-130); Calcium 8.9 mg/dL (7.8-10.44); Carbon Dioxide 28 mmol/L (23-31); Chloride 102 mmol/L (98-107); Estimated GFR-MDRD 59; Globulin 3.1 g/dL (2.4-3.5); Glucose 62 mg/dL (83-110); Potassium 3.9 mmol/L (3.5-5.1); Sodium 138 mmol/L (136-145); Troponin I 0.012 ng/mL (< 0.028)
[2018-03-08] MEDS ORDERED: hydrALAZINE 25 MG TAB ONE (20:52)
--- NOTE | 2018-03-08 21:12 | RAD ---
ONE VIEW CHEST: 03/08/18 COMPARISON: 01/16/18. HISTORY: Chest pain. FINDINGS: Portable upright chest radiograph demonstrates atherosclerosis of the aorta. Left sided transvenous p acemaker with lead position in the right atrium and right ventricle. Heart size is normal. Pulmonary vessels and hilum are normal. Costophrenic angles are clear. Chronic changes, without consolidation, or mass. No pneumothorax. There is diffuse bone demineralization. IMPRESSION: 1. Atherosclerosis. 2. No acute cardiopulmonary process. POS: PPP
--- NOTE | 2018-03-08 21:17 | CT ---
CT OF HEAD NONCONTRAST: 03/08/18 CLINICAL HISTORY: Hypertension with lightheadedness. FINDINGS: There is multifocal abnormal white matter hypoattenuation involving each cerebral hemisphere. No intr acranial hemorrhage, mass effect, midline shift or ventriculomegaly. There is extra-axial calcific de nsity underlying craniotomy site of the high right parietal region. IMPRESSION: 1. No acute intracranial abnormality identified. 2. Mild to moderate chronic microvascular ischemic disease. 3. Postsurgical change of the right calvarium with underlying extra-axial density. Correlate wit h surgical history. POS: BOBBI
== END 2018-03-08 21:40 | disposition home or self-care (01) ==
LOC: ERS 19:21
DX: I11.0 Hypertensive heart disease with heart failure (principal); I50.9 Heart failure, unspecified; I48.91 Unspecified atrial fibrillation; E11.9 Type 2 diabetes mellitus without complications; E66.9 Obesity, unspecified; J45.909 Unspecified asthma, uncomplicated; Z79.899 Other long term (current) drug therapy; Z79.84 Long term (current) use of oral hypoglycemic drugs
CPT/HCPCS: 36415; 70450; 71045; 80053; 82550; 82553; 83880; 84484; 85025; 85610; 85730; 93005

== ENCOUNTER 2018-08-08 16:29 | Inpatient (IN) | payer MEDICARE ==
[2018-08-08 17:10] LABS: Bilirubin Negative (Negative); Blood, Urine Small (Negative); Clarity TURBID (Clear); Glucose, Urine (Dipstick) Negative (Negative); Leukocyte Large (Negative); Nitrite Positive (Negative); Protein, Urine (Dipstick) Negative (Neg-Trace); Specific Gravity, Urine 1.013 (1.002-1.036)
[2018-08-08 17:11] LABS: Bacteria/HPF 4+ HPF (None Seen); Hyaline Casts/LPF 4-6 HYALINE CAST LPF (0-3 Hyaline); Pathc Cast-AUWi Flag 1.59 (0-2.49); RBC/HPF 0-3 HPF (0-3)
[2018-08-08 17:22] LABS: #Eosinphils 0.1 thou/uL (0.0-0.7); #Lymphocytes 2.1 thou/uL (1.20-3.40); #Monocytes 1.8 thou/uL (0.11-0.59); #Neutrophils 11.2 thou/uL (1.40-6.50); %Basophils 0.3 % (0.0-1.0); %Eosinophils 0.5 % (0.0-10.0); %Lymphocytes 13.5 % (21.0-51.0); %Monocytes 11.8 % (0.0-10.0); %Neutrophils 73.9 % (42.0-75.0); Hemoglobin 10.4 g/dL (12.0-16.0); Mean Corpuscular HGB CONC 33.1 g/dL (32.0-36.0); Mean Corpuscular Hemoglobin 28.2 pg (27.0-31.0); Mean Corpuscular Volume 85.2 fL (78.0-98.0); Mean Platelet Volume 7.8 fL (7.4-10.4); Platelet Count 588 thou/uL (130-400); Red Blood Cell (RBC) Count 3.69 mill/uL (4.20-5.40); White Blood Cell (WBC) Count 15.2 thou/uL (4.8-10.8)
[2018-08-08] MEDS ORDERED: cefTRIAXone\\ROCEPHIN 2 GM VIAL ONE (17:44)
--- NOTE | 2018-08-08 17:45 | RAD ---
SINGLE VIEW CHEST: HISTORY: Swelling in the left arm. Fever. COMPARISON: 03/08/2018 FINDINGS: A single view of the chest shows an enlarged cardiomediastinal silhouette with atherosclerotic calcif ications in the aorta. There is a pacemaker with its leads in the right atrium and ventricle. There is no evidence of consolidation, mass, or pleural effusion. IMPRESSION: 1. No evidence of acute cardiopulmonary disease. 2. Stable cardiomegaly. POS: [facility]
[2018-08-08 18:13] LABS: ALT (SGPT) 7 U/L (8-55); AST (SGOT) 18 U/L (5-34); Albumin 2.6 g/dL (3.4-4.8); Alkaline Phosphatase 82 U/L (40-150); Anion Gap 12 mmol/L (10-20); BUN (Urea Nitrogen) 17 mg/dL (9.8-20.1); Bilirubin, Total 0.6 mg/dL (0.2-1.2); Calc. Creatinine Clearance 0 mL/min (70-130); Calcium 8.6 mg/dL (7.8-10.44); Carbon Dioxide 25 mmol/L (23-31); Chloride 100 mmol/L (98-107); Estimated GFR-MDRD 48; Globulin 4.3 g/dL (2.4-3.5); Glucose 114 mg/dL (83-110); Potassium 4.3 mmol/L (3.5-5.1); Protein, Total 6.9 g/dL (6.0-8.3); Sodium 133 mmol/L (136-145)
[2018-08-08] MEDS ORDERED: Acetaminophen 500 MG TAB ONE (18:27)
[2018-08-08] MEDS ORDERED: Acetaminophen 325 MG TAB PO PRN (20:08)
[2018-08-08] MEDS ORDERED: Acetaminophen 650 MG Suppository PR PRN (20:08)
[2018-08-08] MEDS ORDERED: Ondansetron HCl/PF 4 MG/2 ML Vial IVP PRN (20:08)
[2018-08-08] MEDS ORDERED: Senokot 8.6 MG TAB PO PRN (20:08)
[2018-08-08] MEDS ORDERED: Bisacodyl 5 MG TAB PO PRN (20:08)
[2018-08-08] MEDS ORDERED: Ondansetron ODT 4 MG TAB PO PRN (20:08)
[2018-08-08] MEDS ORDERED: Famotidine/PF 20 mg/2ml Vial SLOW IVP SCH (21:00)
[2018-08-08] MEDS ORDERED: Enoxaparin Sodium 40 MG/0.4 ML SYRINGE SC SCH (21:00)
[2018-08-08 21:47] LABS: Lactic Acid 1.2 mmol/L (0.5-2.2)
[2018-08-08] MEDS: Sodium Chloride 0.9% 1,000 ML IV SCH (21:59)
[2018-08-08 22:58] VITALS: BMI 31.3
[2018-08-09 04:20] LABS: #Basophils 0.1 thou/uL (0.0-0.2); #Eosinphils 0.1 thou/uL (0.0-0.7); #Lymphocytes 2.9 thou/uL (1.20-3.40); #Monocytes 1.8 thou/uL (0.11-0.59); #Neutrophils 8.4 thou/uL (1.40-6.50); %Basophils 0.4 % (0.0-1.0); %Eosinophils 0.6 % (0.0-10.0); %Monocytes 13.5 % (0.0-10.0); %Neutrophils 63.5 % (42.0-75.0); Hemoglobin 9.1 g/dL (12.0-16.0); Mean Corpuscular HGB CONC 33.6 g/dL (32.0-36.0); Mean Corpuscular Hemoglobin 28.7 pg (27.0-31.0); Mean Corpuscular Volume 85.5 fL (78.0-98.0); Mean Platelet Volume 7.7 fL (7.4-10.4); Platelet Count 488 thou/uL (130-400); RBC Distribution Width 12.7 % (11.5-14.5); Red Blood Cell (RBC) Count 3.18 mill/uL (4.20-5.40); White Blood Cell (WBC) Count 13.2 thou/uL (4.8-10.8)
[2018-08-09 04:41] LABS: Anion Gap 11 mmol/L (10-20); BUN (Urea Nitrogen) 21 mg/dL (9.8-20.1); Calc. Creatinine Clearance 55 mL/min (70-130); Calcium 8.2 mg/dL (7.8-10.44); Carbon Dioxide 27 mmol/L (23-31); Chloride 101 mmol/L (98-107); Estimated GFR-MDRD 47; Potassium 3.6 mmol/L (3.5-5.1); Sodium 135 mmol/L (136-145)
[2018-08-09] MEDS: Cholestyramine/Aspartame 4 gm Packet PO SCH ×2 (04:41→14:36)
[2018-08-09 04:57] LABS: Glucose 55 mg/dL (83-110)
[2018-08-09 05:50] LABS: INR-International Normal Ratio 2.3; Prothrombin Time 24.9 SEC (12.0-14.7)
--- NOTE | 2018-08-09 06:14 | HP ---
CHIEF COMPLAINT: Feeling weak and fever. HISTORIAN: The patient, trevor. HISTORY OF PRESENT ILLNESS: This is an 83-year-old female with past medical history significant for coronary artery disease; atrial fibrillation; hypertension; diabetes mellitus type 2; dyslipidemia; rectal adenocarcinoma, status post resection; asthma; morbid obesity; obstructive sleep apnea syndrome , on CPAP therapy, being admitted for fever of 103 and feeling weak. Per the patient, she woke up on the day of admission and patient stated that she was not feeling too well. When the home nurse came in, the patient told home nurse about how she felt and her doctor told her to come to the hospital to be evaluated. In the hospital, workup was done. The patient was found to have positive urinalysis. The patient was diagnosed with a UTI. The patient has been started on antibiotics. Upon further questioning during my interview with her, patient states that she has also been having diarrhea for 6 months. The patient was actually admitted in 12/2017 and patient was diagnosed with sepsis. The patient was at that time treated for sepsis and patient states that she has been having this diarrhea, which smells very bad. REVIEW OF SYSTEMS: Positive for left upper extremity pain, fever, chills, otherwise as documented in the HPI. All other systems were reviewed and are negative. PAST MEDICAL HISTORY: The patient has past medical history of gout; congestive heart failure; brain tumor removed with surgery; atrial fibrillation, status post pacemaker; diabetes mellitus type 2; hypertension; rectal adenocarcinoma; obesity; asthma. FAMILY HISTORY: Status post pacemaker ablation in 06/2015, brain tumor surgery , appendectomy, cholecystectomy, colostomy with reversal, hysterectomy. PSYCHIATRIC HISTORY: No previous psychiatric history. SOCIAL HISTORY: Patient denies alcohol use. The patient denies any drug use. The patient denies smoking history. FAMILY HISTORY: Reviewed and noncontributory. KNOWN ALLERGIES: No known drug allergies. CURRENT MEDICATIONS: The patient takes warfarin 2.5 mg, metoprolol succinate 50 mg, Lasix 20 mg, ferrous sulfate 325 mg, glipizide 5 mg, albuterol sulfate 2.5 mg, atorvastatin 40 mg, metformin 500 mg, indomethacin 50 mg. PHYSICAL EXAMINATION: VITAL SIGNS: Blood pressure 150/74, pulse 73, respiratory rate of 24, temperature 100.5, O2 saturation 97 on room air. RADIOLOGY: Chest film is negative. ED COURSE: The patient received Tylenol 1 gram, vancomycin IV 1 gram, ceftriaxone injection. LABORATORY DATA: WBC 15.2, hemoglobin 10.4, hematocrit 31.4, platelet 588,000. Sodium 133, potassium 4.3, chloride 100, carbon dioxide 25, anion gap of 12, BUN of 17, creatinine of 1.08, glucose 114, lactic acid of 2.1, AST 18, ALT 7. Urinalysis positive for urine nitrite with large leukoesterase. ASSESSMENT AND PLAN: This is an 83-year-old female being admitted for: 1. Urinary tract infection. The patient has been started on Rocephin. We will continue patient on Rocephin. We will continue on IV antibiotics. We will give patient pain medication p.r.n. 2. Diarrhea, ongoing for 6 months. Patient denies history of antibiotic use. At this point, we are concerned for possible Clostridium difficile, so we will put patient on contact precaution. We will get stool cultures and Clostridium difficile cultures to confirm if the patient has Clostridium difficile. 3. Congestive heart failure, currently stable. We will monitor the patient. 4. History of gout. We will continue the patient on home medication. 5. Brain tumor removed with surgery, currently stable. We will monitor the patient. 6. Diabetes mellitus type 2. We will continue patient on insulin sliding scale. 7. History of asthma. We will do DuoNeb p.r.n. 8. History of atrial fibrillation. We will continue patient on home dose of warfarin. 9. Hypertension. We will continue patient on Lasix, metoprolol. 10. Anemia. We will continue the patient on Feosol. 11. Deep vein thrombosis and gastrointestinal prophylaxis. MTDD
[2018-08-09] MEDS: Furosemide 20 MG TAB PO SCH (10:37)
[2018-08-09] MEDS: Ferrous Sulfate 325 MG TAB PO SCH (10:37)
[2018-08-09] MEDS: Losartan 25 MG TAB PO SCH (10:37)
[2018-08-09] MEDS: Sodium Chloride 0.9% 1,000 ML IV SCH (13:47)
--- NOTE | 2018-08-09 15:27 | PDOC.PN ---
- Subjective Encounter Start Date: 08/09/18 Encounter Start Time: 12:25 Subjective: awake, no sob -: is watching tv -: is wheel chair bound and lives with daughter - Objective Resuscitation Status: Resuscitation Status FULL:Full Resuscitation MAR Reviewed: Yes Vital Signs & Weight: Vital Signs (12 hours) Temp Pulse Resp BP Pulse Ox 08/09/18 11:50 99.8 F H 70 16 130/70 96 08/09/18 08:00 97.9 F 67 18 99 08/09/18 04:00 97.9 F 67 18 163/98 H 99 Weight Weight 200 lb I&O: 08/08/18 08/09/18 08/10/18 06:59 06:59 06:59 Intake Total 1080 440 Balance 1080 440 Result Diagrams: 08/09/18 03:27 08/09/18 03:27 Additional Labs: Accuchecks 08/09/18 08/09/18 08/09/18 11:50 06:04 04:30 POC Glucose 91 73 62 L Phys Exam - Physical Examination HEENT: PERRLA, moist MMs Neck: no JVD, supple Respiratory: no wheezing, no rales Cardiovascular: RRR, no significant murmur Gastrointestinal: soft, non-tender, no distention, positive bowel sounds Musculoskeletal: no edema, pulses present Neurological: non-focal, moves all 4 limbs Psychiatric: normal affect, A&O x 3 Dx/Plan (1) UTI (urinary tract infection) Status: Acute Qualifiers: Urinary tract infection type: acute cystitis Hematuria presence: without hematuria Qualified Code(s): N30.00 - Acute cystitis without hematuria (2) Diarrhea Code(s): R19.7 - DIARRHEA, UNSPECIFIED Status: Chronic (3) H/O cardiac pacemaker Code(s): Z95.0 - PRESENCE OF CARDIAC PACEMAKER Status: Chronic (4) CLEMENCIA (obstructive sleep apnea) Code(s): G47.33 - OBSTRUCTIVE SLEEP APNEA (ADULT) (PEDIATRIC) Status: Chronic (5) Obesity (BMI 30-39.9) Code(s): E66.9 - OBESITY, UNSPECIFIED Status: Chronic (6) Paroxysmal atrial fibrillation Code(s): I48.0 - PAROXYSMAL ATRIAL FIBRILLATION Status: Chronic (7) Type 2 diabetes mellitus Status: Chronic Qualifiers: Diabetes mellitus superintendent terminal insulin use: without longterm use Diabetes mellitus complication status: with unspecified complications Qualified Code(s) : E11.8 - Type 2 diabetes mellitus with unspecified complications Comment: - Plan stool tests are -ve for infectious etiology -: will get GI consult, has prior h/o colon ca -: is on ceftriaxone, gentle iv hydration, dc iv fluids in am -: likely urine cs is contaminated -: is awake and oriented well * . Review of Systems - Medications/Allergies Allergies/Adverse Reactions: Allergies Allergy/AdvReac Type Severity Reaction Status Date / Time No Known Allergies Allergy Verified 08/08/18 23:15 Medications: Current Medications Acetaminophen (Tylenol) 650 mg PO Q4H PRN PRN Reason: Headache/Fever or Pain Last Admin: 08/09/18 12:04 Dose: 650 mg Acetaminophen (Tylenol) 650 mg [place] Q4H PRN PRN Reason: Headache/Fever or Pain Atorvastatin Calcium (Lipitor) 40 mg PO HS [facility] Bisacodyl (Dulcolax) 10 mg PO DAILYPRN PRN PRN Reason: Constipation Cholestyramine Resin (Questran Light) 4 gm PO 0400,1600 [facility] Last Admin: 08/09/18 14:36 Dose: 4 gm Ferrous Sulfate (Feosol) 325 mg PO DAILY [facility] Last Admin: 08/09/18 10:37 Dose: 325 mg Furosemide (Lasix) 20 mg PO DAILY [facility] Last Admin: 08/09/18 10:37 Dose: 20 mg Glipizide (Glucotrol Xl) 5 mg PO QAM-WM [facility] Last Admin: 08/09/18 13:45 Dose: 5 mg Sodium Chloride (Normal Saline 0.9%) 1,000 mls @ 60 mls/hr IV .[id number] [facility] Last Admin: 08/09/18 13:47 Dose: 1,000 mls Ceftriaxone Sodium 1 gm/ (Sodium Chloride) 100 mls @ 200 mls/hr IVPB Q24HR [facility] Losartan Potassium (Cozaar) 12.5 mg PO DAILY [facility] Last Admin: 08/09/18 10:37 Dose: 12.5 mg Metoprolol Succinate (Toprol Xl) 50 mg PO DAILY [facility] Last Admin: 08/09/18 10:37 Dose: 50 mg Ondansetron HCl (Zofran Odt) 4 mg PO Q6H PRN PRN Reason: Nausea/Vomiting Ondansetron HCl (Zofran) 4 mg IVP Q6H PRN PRN Reason: Nausea/Vomiting Senna (Senokot) 2 tab PO HSPRN PRN PRN Reason: Constipation Sodium Chloride (Flush - Normal Saline) 10 ml IVF Q12HR [facility] Last Admin: 08/09/18 10:37 Dose: 10 ml Sodium Chloride (Flush - Normal Saline) 10 ml IVF PRN PRN PRN Reason: Saline Flush Warfarin Sodium (Coumadin) 2.5 mg PO TuTh@1700 [facility] Warfarin Sodium (Coumadin) 5 mg PO SuMoWeFrSa@1700 [facility]
[2018-08-09] MEDS: cefTRIAXone\\ROCEPHIN 1 GM in Sodium Chloride 0.9% 100 ML IVPB SCH (17:05)
[2018-08-09] MEDS: Atorvastatin Calcium 40 MG TAB PO SCH (20:24)
[2018-08-09] MEDS ORDERED: Famotidine/PF 20 mg/2ml Vial SLOW IVP SCH (21:00)
[2018-08-09] MEDS ORDERED: Warfarin Sodium 2.5 MG TAB PO SCH (22:00)
[2018-08-10 04:30] LABS: INR-International Normal Ratio 2.3; Prothrombin Time 25.4 SEC (12.0-14.7)
[2018-08-10] MEDS: Cholestyramine/Aspartame 4 gm Packet PO SCH ×2 (04:33→15:07)
[2018-08-10] MEDS: Sodium Chloride 0.9% 1,000 ML IV SCH ×2 (04:34→23:17)
[2018-08-10] MEDS: Ferrous Sulfate 325 MG TAB PO SCH (07:39)
[2018-08-10] MEDS: Furosemide 20 MG TAB PO SCH (07:39)
[2018-08-10] MEDS: Losartan 25 MG TAB PO SCH (07:40)
[2018-08-10] MEDS ORDERED: ISOVUE-370 76%-LOCM 1 ML ONE (08:13)
[2018-08-10] MEDS ORDERED: Warfarin Sodium 5 MG TAB PO SCH (17:00)
[2018-08-10] MEDS: cefTRIAXone\\ROCEPHIN 1 GM in Sodium Chloride 0.9% 100 ML IVPB SCH (17:11)
--- NOTE | 2018-08-10 18:53 | PDOC.PN ---
- Subjective Encounter Start Date: 08/10/18 Encounter Start Time: 14:00 Subjective: c/o left UE edema which is slowly receding -: no sob or abd pain -: daughter at bedside - Objective Resuscitation Status: Resuscitation Status FULL:Full Resuscitation MAR Reviewed: Yes Vital Signs & Weight: Vital Signs (12 hours) Temp Pulse Resp BP Pulse Ox 08/10/18 08:00 98.3 F 71 16 98 08/10/18 07:41 98.3 F 71 16 131/74 98 Weight Weight 200 lb I&O: 08/09/18 08/10/18 08/11/18 06:59 06:59 06:59 Intake Total 1080 1820 480 Balance 1080 1820 480 Result Diagrams: 08/09/18 03:27 08/09/18 03:27 Additional Labs: Accuchecks 08/10/18 08/10/18 08/10/18 16:23 11:12 04:26 POC Glucose 129 H 108 69 L 08/09/18 19:54 POC Glucose 107 Phys Exam - Physical Examination HEENT: PERRLA, moist MMs Neck: no JVD, supple Respiratory: no wheezing, no rales Cardiovascular: RRR, no significant murmur Gastrointestinal: soft, positive bowel sounds Musculoskeletal: pulses present, edema present left UE edema Neurological: non-focal, moves all 4 limbs Psychiatric: normal affect, A&O x 3 Dx/Plan (1) UTI (urinary tract infection) Status: Acute Qualifiers: Urinary tract infection type: acute cystitis Hematuria presence: without hematuria Qualified Code(s): N30.00 - Acute cystitis without hematuria (2) Diarrhea Code(s): R19.7 - DIARRHEA, UNSPECIFIED Status: Chronic Qualifiers: Diarrhea type: unspecified type Qualified Code(s): R19.7 - Diarrhea, unspecified (3) H/O cardiac pacemaker Code(s): Z95.0 - PRESENCE OF CARDIAC PACEMAKER Status: Chronic (4) CLEMENCIA (obstructive sleep apnea) Code(s): G47.33 - OBSTRUCTIVE SLEEP APNEA (ADULT) (PEDIATRIC) Status: Chronic (5) Obesity (BMI 30-39.9) Code(s): E66.9 - OBESITY, UNSPECIFIED Status: Chronic (6) Paroxysmal atrial fibrillation Code(s): I48.0 - PAROXYSMAL ATRIAL FIBRILLATION Status: Chronic (7) Type 2 diabetes mellitus Status: Chronic Qualifiers: Diabetes mellitus half-way insulin use: without half-way use Diabetes mellitus complication status: with unspecified complications Qualified Code(s) : E11.8 - Type 2 diabetes mellitus with unspecified complications Comment: - Plan is on coumadin with therapeutic inr -: usg of left UE -: d/w , will be getting CT abd, likely impacted -: very poor functional status and is wheel chair bound -: on ceftriaxone, await urine cs sensitivities, ?contaminated * . Review of Systems - Medications/Allergies Allergies/Adverse Reactions: Allergies Allergy/AdvReac Type Severity Reaction Status Date / Time No Known Allergies Allergy Verified 08/08/18 23:15 Medications: Current Medications Acetaminophen (Tylenol) 650 mg PO Q4H PRN PRN Reason: Headache/Fever or Pain Last Admin: 08/09/18 12:04 Dose: 650 mg Acetaminophen (Tylenol) 650 mg [place] Q4H PRN PRN Reason: Headache/Fever or Pain Atorvastatin Calcium (Lipitor) 40 mg PO HS [facility] Last Admin: 08/09/18 20:24 Dose: 40 mg Bisacodyl (Dulcolax) 10 mg PO DAILYPRN PRN PRN Reason: Constipation Furosemide (Lasix) 20 mg PO DAILY [facility] Last Admin: 08/10/18 07:39 Dose: 20 mg Glipizide (Glucotrol Xl) 5 mg PO QAM-WM [facility] Last Admin: 08/10/18 07:38 Dose: 5 mg Sodium Chloride (Normal Saline 0.9%) 1,000 mls @ 60 mls/hr IV .[id number] [facility] Last Admin: 08/10/18 04:34 Dose: 1,000 mls Ceftriaxone Sodium 1 gm/ (Sodium Chloride) 100 mls @ 200 mls/hr IVPB Q24HR [facility] Last Admin: 08/10/18 17:11 Dose: 100 mls Losartan Potassium (Cozaar) 12.5 mg PO DAILY [facility] Last Admin: 08/10/18 07:40 Dose: 12.5 mg Metoprolol Succinate (Toprol Xl) 50 mg PO DAILY [facility] Last Admin: 08/10/18 07:39 Dose: 50 mg Ondansetron HCl (Zofran Odt) 4 mg PO Q6H PRN PRN Reason: Nausea/Vomiting Ondansetron HCl (Zofran) 4 mg IVP Q6H PRN PRN Reason: Nausea/Vomiting Saccharomyces Boulardii (Florastor) 250 mg PO DAILY [facility] Senna (Senokot) 2 tab PO HSPRN PRN PRN Reason: Constipation Sodium Chloride (Flush - Normal Saline) 10 ml IVF Q12HR [facility] Last Admin: 08/10/18 07:41 Dose: Not Given Sodium Chloride (Flush - Normal Saline) 10 ml IVF PRN PRN PRN Reason: Saline Flush Warfarin Sodium (Coumadin) 2.5 mg PO TuTh@1700 [facility] Warfarin Sodium (Coumadin) 5 mg PO SuMoWeFrSa@1700 [facility] Last Admin: 08/10/18 17:11 Dose: 5 mg
--- NOTE | 2018-08-10 20:06 | ULT ---
LEFT UPPER EXTREMITY VENOUS ULTRASOUND: 08/10/18 HISTORY: Left arm edema. TECHNIQUE: Multiplanar roberts scale and color doppler images were obtained in a left upper extremity venous ultras ound. Spectral analysis of the doppler waveforms were performed. FINDINGS: The left internal jugular vein demonstrates normal compression and flow without evidence of thrombus. The left subclavian vein demonstrates normal flow and augmentation without evidence of thrombus. The left axillary and brachial veins demonstrate normal compression, flow and augmentation without evide nce of thrombus. The venous structures distal to the elbow are unremarkable. The basilic and cephalic veins are patent without evidence of thrombus. IMPRESSION: No evidence of left upper extremity thrombus. POS: [facility]
[2018-08-10] MEDS: Atorvastatin Calcium 40 MG TAB PO SCH (23:16)
--- NOTE | 2018-08-10 23:33 | CT ---
CT OF THE ABDOMEN AND PELVIS WITH CONTRAST 08/10/18 COMPARISON: 05/29/13 HISTORY: Chronic diarrhea that began this morning. History of rectal cancer. TECHNIQUE: Multiple contiguous axial images were obtained in a CT of the abdomen and pelvis with contrast. PO co ntrast was administered. Coronal reformats were performed. FINDINGS: The patient is status post cholecystectomy. There is a small stable hypodensity on the right kidney w hich represents a cyst. The liver, left kidney, adrenal glands, spleen, and pancreas are unremarkable . No free air is seen in the abdomen or pelvis. A trace amount of free fluid is seen in the pelvis. T he patient is status post hysterectomy. The visualized large and small bowel are unremarkable. The appendix is not definitely seen. Moderate stool retention is seen throughout the colon. No abdominal or pelvic lymphadenopathy are seen. Atherosclerotic calcifications are seen in the aorta . Degenerative changes are seen in the spine. No suspicious osseous lesions are identified. There are s mall bilateral pleural effusions. The abdominal wall soft tissues are unremarkable. IMPRESSION: 1. No evidence of acute intra-abdominal/pelvic abnormality. 2. Right renal cyst. POS: [facility]
[2018-08-11] MEDS: Sodium Chloride 0.9% 1,000 ML IV SCH ×2 (01:05→17:38)
[2018-08-11 04:31] LABS: #Eosinphils 0.3 thou/uL (0.0-0.7); #Lymphocytes 2.3 thou/uL (1.20-3.40); #Monocytes 1.2 thou/uL (0.11-0.59); #Neutrophils 6.9 thou/uL (1.40-6.50); %Basophils 0.4 % (0.0-1.0); %Eosinophils 3.1 % (0.0-10.0); %Lymphocytes 21.3 % (21.0-51.0); %Monocytes 11.3 % (0.0-10.0); %Neutrophils 63.9 % (42.0-75.0); Hemoglobin 9.5 g/dL (12.0-16.0); Mean Corpuscular HGB CONC 32.3 g/dL (32.0-36.0); Mean Corpuscular Hemoglobin 27.8 pg (27.0-31.0); Mean Corpuscular Volume 86.1 fL (78.0-98.0); Mean Platelet Volume 7.1 fL (7.4-10.4); Platelet Count 581 thou/uL (130-400); RBC Distribution Width 12.8 % (11.5-14.5); Red Blood Cell (RBC) Count 3.42 mill/uL (4.20-5.40); White Blood Cell (WBC) Count 10.7 thou/uL (4.8-10.8)
[2018-08-11 04:58] LABS: ALT (SGPT) Less than 7 U/L (8-55); AST (SGOT) 10 U/L (5-34); Albumin 2.4 g/dL (3.4-4.8); Alkaline Phosphatase 73 U/L (40-150); Anion Gap 10 mmol/L (10-20); BUN (Urea Nitrogen) 14 mg/dL (9.8-20.1); Bilirubin, Total 0.2 mg/dL (0.2-1.2); Calc. Creatinine Clearance 73 mL/min (70-130); Calcium 8.2 mg/dL (7.8-10.44); Carbon Dioxide 23 mmol/L (23-31); Chloride 107 mmol/L (98-107); Estimated GFR-MDRD 65; Globulin 3.4 g/dL (2.4-3.5); Glucose 60 mg/dL (83-110); Potassium 3.7 mmol/L (3.5-5.1); Protein, Total 5.8 g/dL (6.0-8.3); Sodium 136 mmol/L (136-145)
[2018-08-11] MEDS ORDERED: GoLYTELY 4,000 ml Bottle PO SCH ×2 (08:00→18:30)
[2018-08-11] MEDS: Furosemide 20 MG TAB PO SCH (09:53)
[2018-08-11] MEDS: Docusate 100 MG CAP PO SCH ×2 (09:53→20:39)
[2018-08-11] MEDS: Losartan 25 MG TAB PO SCH (09:53)
[2018-08-11] MEDS: Polyethylene Glycol 3350 17 GM Packet PO SCH (09:54)
[2018-08-11] MEDS: Saccharomyces boulardii 250 MG CAP PO SCH (09:54)
--- NOTE | 2018-08-11 10:53 | PDOC.PN ---
- Subjective Encounter Start Date: 08/11/18 Encounter Start Time: 10:20 Subjective: has small amount of bm last evening, she is not sure if hard ones came out -: no abd pain or sob - Objective Resuscitation Status: Resuscitation Status FULL:Full Resuscitation MAR Reviewed: Yes Vital Signs & Weight: Vital Signs (12 hours) Temp Pulse Resp BP Pulse Ox 08/11/18 08:00 97.9 F 70 18 161/86 H 96 08/10/18 23:30 98.8 F 71 16 151/85 H 97 Weight Weight 200 lb I&O: 08/10/18 08/11/18 08/12/18 06:59 06:59 06:59 Intake Total 1820 480 Balance 1820 480 Result Diagrams: 08/11/18 04:14 08/11/18 04:14 Additional Labs: Accuchecks 08/11/18 08/10/18 08/10/18 04:19 19:48 16:23 POC Glucose 74 100 129 H 08/10/18 11:12 POC Glucose 108 Phys Exam - Physical Examination HEENT: PERRLA, moist MMs Neck: no JVD, supple Respiratory: no wheezing, no rales Cardiovascular: RRR, no significant murmur Gastrointestinal: soft, non-tender, positive bowel sounds Musculoskeletal: no edema, pulses present Neurological: non-focal, moves all 4 limbs Psychiatric: normal affect, A&O x 3 Dx/Plan (1) UTI (urinary tract infection) Status: Acute Qualifiers: Urinary tract infection type: acute cystitis Hematuria presence: without hematuria Qualified Code(s): N30.00 - Acute cystitis without hematuria (2) Diarrhea Code(s): R19.7 - DIARRHEA, UNSPECIFIED Status: Chronic Qualifiers: Diarrhea type: unspecified type Qualified Code(s): R19.7 - Diarrhea, unspecified Comment: likely due to stool impaction/constipation (3) H/O cardiac pacemaker Code(s): Z95.0 - PRESENCE OF CARDIAC PACEMAKER Status: Chronic (4) CLEMENCIA (obstructive sleep apnea) Code(s): G47.33 - OBSTRUCTIVE SLEEP APNEA (ADULT) (PEDIATRIC) Status: Chronic (5) Obesity (BMI 30-39.9) Code(s): E66.9 - OBESITY, UNSPECIFIED Status: Chronic (6) Paroxysmal atrial fibrillation Code(s): I48.0 - PAROXYSMAL ATRIAL FIBRILLATION Status: Chronic (7) Type 2 diabetes mellitus Status: Chronic Qualifiers: Diabetes mellitus medical terminologist insulin use: without group home use Diabetes mellitus complication status: with unspecified complications Qualified Code(s) : E11.8 - Type 2 diabetes mellitus with unspecified complications Comment: - Plan CT abd results noted, will give 1 liter golytely -: no dvt in Left UE, to keep it elevated over 2 pillows -: oob to chair, bowel regimen -: is on ceftriaxone for uti, await full culture results -: dc plan in am if stable to Home (daughter helps her, pt is wheelchairbound) * . Review of Systems - Medications/Allergies Allergies/Adverse Reactions: Allergies Allergy/AdvReac Type Severity Reaction Status Date / Time No Known Allergies Allergy Verified 08/08/18 23:15 Medications: Current Medications Acetaminophen (Tylenol) 650 mg PO Q4H PRN PRN Reason: Headache/Fever or Pain Last Admin: 08/09/18 12:04 Dose: 650 mg Acetaminophen (Tylenol) 650 mg [place] Q4H PRN PRN Reason: Headache/Fever or Pain Atorvastatin Calcium (Lipitor) 40 mg PO HS [facility] Last Admin: 08/10/18 23:16 Dose: 40 mg Bisacodyl (Dulcolax) 10 mg PO DAILYPRN PRN PRN Reason: Constipation Docusate Sodium (Colace) 100 mg PO BID [facility] Last Admin: 08/11/18 09:53 Dose: 100 mg Furosemide (Lasix) 20 mg PO DAILY [facility] Last Admin: 08/11/18 09:53 Dose: 20 mg Glipizide (Glucotrol Xl) 5 mg PO QAM-WM [facility] Last Admin: 08/11/18 09:53 Dose: 5 mg Sodium Chloride (Normal Saline 0.9%) 1,000 mls @ 60 mls/hr IV .[id number] [facility] Last Admin: 08/11/18 01:05 Dose: 1,000 mls Ceftriaxone Sodium 1 gm/ (Sodium Chloride) 100 mls @ 200 mls/hr IVPB Q24HR [facility] Last Admin: 08/10/18 17:11 Dose: 100 mls Losartan Potassium (Cozaar) 12.5 mg PO DAILY [facility] [place] Last Admin: 08/11/18 09:53 Dose: 12.5 mg Metoprolol Succinate (Toprol Xl) 50 mg PO DAILY [facility] Last Admin: 08/11/18 09:54 Dose: 50 mg Ondansetron HCl (Zofran Odt) 4 mg PO Q6H PRN PRN Reason: Nausea/Vomiting Ondansetron HCl (Zofran) 4 mg IVP Q6H PRN PRN Reason: Nausea/Vomiting Polyethylene Glycol (Miralax) 17 gm PO DAILY [facility] Last Admin: 08/11/18 09:54 Dose: 17 gm Polyethylene Glycol/Electrolytes (Golytely) 1,000 ml PO [facility] Stop: 08/11/18 21:00 Last Admin: 08/11/18 09:56 Dose: 1,000 ml Saccharomyces Boulardii (Florastor) 250 mg PO DAILY [facility] [place] Last Admin: 08/11/18 09:54 Dose: 250 mg Senna (Senokot) 2 tab PO HSPRN PRN PRN Reason: Constipation Sodium Chloride (Flush - Normal Saline) 10 ml IVF Q12HR [facility] [place] Last Admin: 08/11/18 09:54 Dose: 10 ml Sodium Chloride (Flush - Normal Saline) 10 ml IVF PRN PRN PRN Reason: Saline Flush Warfarin Sodium (Coumadin) 2.5 mg PO TuTh@1700 [facility] Warfarin Sodium (Coumadin) 5 mg PO SuMoWeFrSa@1700 [facility] Last Admin: 08/10/18 17:11 Dose: 5 mg
[2018-08-11] MEDS ORDERED: Warfarin Sodium 2.5 MG TAB PO SCH (17:00)
--- NOTE | 2018-08-11 17:24 | CON ---
DATE OF CONSULTATION: 08/10/2018 REASON FOR CONSULTATION: Possible Clostridium difficile. HISTORY OF PRESENT ILLNESS: Ms. Rico is a pleasant 83-year-old female who was admitted to the [facility] from snf yesterday. She was sent from the snf as she had fever that was on Wednesday afternoon 2 days ago. Apparently, she came in with complaints of swelling and pain in the lef t upper extremity. At the snf, her nurse extern she had chills and fever and she was se nt to the emergency room. Apparently, she has been in the snf since she was last admitted t o [facility] in December. At that time, she was hospitalized with pneumonia. The patient had inc reasing shortness of breath at that time, was ultimately intubated and treated for sepsis. She was i n the hospital for about 2 weeks and ultimately was discharged home on antibiotics, steroid taper, bl ood thinners, indomethacin, and albuterol. She reports that she never regained the ability to walk a nd she states that ever since she is out of the hospital have a bowel movement and was having incontinence, sometimes she could have a bowel movement or gas, but she could not tell which it would be. She has had no overt bleeding. This has been unchanged even up to this admission. With this a dmission, she was told she probably had a bladder infection, although it is unclear if that is the ca se is really her only symptoms have been left arm pain. In the emergency room, she had a fever of 10 3 and felt very weak. Her urinalysis was positive for UTI and she was started on antibiotic on admis tommy. With regard to her bowel function, she states her bowel function has really been the same sinc e she is out of the hospital until now. Her bowels actually smell very bad and she asked to get herman ged frequently in the snf. She denies being on recent antibiotics. Here in the hospital, she had a white count of 15,000 on presentation, hemoglobin 10.4, and platelet count of 588. INR was 1.8. Comp met profile is notable for sodium of 133, glucose of 114. Electrol ytes were normal. Liver function tests were normal. Recently, she has had a CEA of 2.06 in 04/2018, that was done for screening with regard to her prior history of rectal cancer. Here, she has had mi crobiology, she had stool. She had blood cultures on were negative. She had urine culture posi tive for E. coli. She had stool culture that showed many normal gómez and she had a C. diff antigen positive, toxin negative. PAST SURGICAL HISTORY: History of rectal cancer in the past, she had a resection, diverting ileostom y. Talking to the patient, she never had radiation or chemotherapy therapy or adjuvant therapy followup colonoscopy in 07/2014 at which time some polyps were removed. She had a cholecystectomy in 2013, she had colon resection with ileostomy in 05/2013 and ileostomy takedown in 06/2013, brain s urgery in the past. REVIEW OF SYSTEMS: Mainly complains of left upper extremity swelling and pain, fever and chills. De nies any recent change in bowel function since December. She has dysuria, frequency, or urgenc y. Denies any nausea or vomiting. No chest pain, shortness of breath, dyspnea on exertion, nausea, vomiting or abdominal pain. She has no cramping. She cannot walk, but she states she can move her l ower extremities . PAST MEDICAL HISTORY: Gout; congestive heart failure; brain tumor removed with surgery in the past; atrial fibrillation; previous pacemaker; diabetes, type 2; hypertension, previous rectal carcinoma; o besity; asthma. FAMILY HISTORY: Noncontributory. SOCIAL HISTORY: Denies alcohol. She has been living in a snf. ALLERGIES: None known. MEDICATIONS: Tylenol p.r.n., Lipitor p.r.n., Rocephin, Questran p.r.n., iron, Lasix, Cozaar, pantopr azole, Zofran, warfarin 2.5 daily. HOME MEDICATIONS: Glipizide, warfarin, metoprolol, losartan, furosemide, iron, and atorvastatin. PHYSICAL EXAMINATION: VITAL SIGNS: Temperature is 98, pulse 71, blood pressure 134/74. GENERAL: The patient is mildly overweight. She is oriented to person, place, and time. HEENT: Oropharynx without lesions. NECK: Supple, without any adenopathy. There is no JVD. LUNGS: Clear. HEART: Regular rate and rhythm. There are no murmurs or bruits. ABDOMEN: Soft and nontender. Scars are well healed. There are no hernias. There is no palpable hep atosplenomegaly. RECTAL: Reveals lax sphincter tone. She has good sensation perianal tissue. the rectal vault . This is postsurgical changes, it is unclear how much and the rectum if this is the postoper ative state. EXTREMITIES: No clubbing, cyanosis or edema. She has good sensation bilaterally. She has swollen l eft arm. LABORATORY DATA: UA showed blood small, greater than 50 white blood cells, 4+ bacteria. White count is 13.2, hemoglobin is 9.1, platelet count 48. Chemistries not repeated for admission. IMAGING: Imaging of abdomen was none. Imaging of chest x-ray was normal. ASSESSMENT: 1. This is a patient with complaints of diarrhea and lack of ability to control her bowels. This ap parently is unchanged for 6 months. Now, she is admitted with left arm pain and fever. She did have a dirty urine and we were about to concern for urinary tract infection and she has been started on R ocephin, although this is nothing do with complaint she came in with, her bowel changes have been chr onic and unchanged for several months. 2. Left swollen arm. There has really been no evaluation of this. I would recommend this to be ult rasounded. 3. Agree with continuing antibiotics for urinary tract infection. 4. Stool positive for Clostridium difficile toxin. I would check fecal white blood cells. I would not empirically treat her for Clostridium difficile now because her antigen is positive, toxin is neg ative and she has got formed stool in rectal vault. 5. Diarrhea that what the patient describes as fecal incontinence a few times per day and this has b een unchanged over several months. She states she cannot tell she is going to pass stool or gas, herberth etimes pass formed stool and sometimes liquid. She has had a fecal impaction on exam and abnormal re ctal exam. She had a screening colonoscopy, which showed no evidence of recurrent disease 4 years ag o. RECOMMENDATIONS: 1. I get a CAT scan to fully evaluate her pelvis. Make sure there is no type of fistula between the bladder and vaginal areas. The tissues very abnormal on rectal examination. Make sure there are no abscesses she has got a large impaction. If she does not, we can perform a flexible sigmoido scopy later cleared. 2. Start clearing the fecal impaction.
[2018-08-11] MEDS: cefTRIAXone\\ROCEPHIN 1 GM in Sodium Chloride 0.9% 100 ML IVPB SCH (17:36)
[2018-08-11] MEDS: Atorvastatin Calcium 40 MG TAB PO SCH (20:38)
[2018-08-11] MEDS ORDERED: Dextrose 50% Abboject 50 ML SYRINGE ONE (21:02)
[2018-08-11] MEDS ORDERED: Dextrose 5% in Water 1,000 ML IV PRN (21:06)
[2018-08-11] MEDS ORDERED: Dextrose 50% Abboject 50 ML SYRINGE IVP PRN (21:06)
[2018-08-11] MEDS ORDERED: HumaLOG 300 UNITS/3 ML VIAL SC PRN (21:06)
[2018-08-11] MEDS: Dextrose 5 % And 0.9 % NaCl 1,000 ML IV SCH (21:15)
[2018-08-11] MEDS ORDERED: Dextrose 50% Abboject 50 ML SYRINGE SLOW IVP SCH (21:15)
--- NOTE | 2018-08-12 01:38 | PRG ---
DATE OF SERVICE: 08/11/2018 SUBJECTIVE: Ms. Rico took 1 liter GoLYTELY and she had a couple of formed bowel movements after that. She feels much better. OBJECTIVE: VITAL SIGNS: Temperature 97.9, blood pressure 161/86, pulse 70. GENERAL: She is in no acute distress, alert and oriented. LUNGS: Clear to auscultation bilaterally. HEART: Regular rate and rhythm. ABDOMEN: Soft, nontender, nondistended. Bowel sounds are present. EXTREMITIES: No lower extremity edema. IMPRESSION: 1. Fecal impaction proximal to the rectal anastomosis. She has improved with a liter of GoLYTELY. I would continue to try to decompress her colon at this point with another 2 liters of GoLYTELY. Aft er that, she can just take MiraLax daily. Her stool output will have to be monitored after that and MiraLax increased based if that necessary or decreased if necessary. 2. History of rectal cancer, status post resection. Her last colonoscopy was in 09/2017 and was nor mal. She would not be due for surveillance for 5 years after that, at which point risks versus benef its considering her age would have to be considered. RECOMMENDATIONS: 1. We will give additional two liters of GoLYTELY, this evening. 2. Continue MiraLax 17 grams daily. 3. She was greatly improved with treatment of the fecal constipation. She was having fecal incontin ence with liquidy stool running around the constipated stool.
[2018-08-12 08:50] LABS: INR-International Normal Ratio 2.8; Prothrombin Time 29.8 SEC (12.0-14.7)
[2018-08-12] MEDS: Losartan 25 MG TAB PO SCH (09:08)
[2018-08-12] MEDS: Docusate 100 MG CAP PO SCH (09:08)
[2018-08-12] MEDS: Furosemide 20 MG TAB PO SCH (09:08)
[2018-08-12] MEDS: Saccharomyces boulardii 250 MG CAP PO SCH (09:10)
[2018-08-12] MEDS: Polyethylene Glycol 3350 17 GM Packet PO SCH (09:10)
[2018-08-12] MEDS: Dextrose 5 % And 0.9 % NaCl 1,000 ML IV SCH ×2 (11:36→12:47)
--- NOTE | 2018-08-12 13:37 | PDOC.PN ---
- Subjective Encounter Start Date: 08/12/18 Encounter Start Time: 13:35 Ms. Rico was seen today in follow-up of UTI and fecal impaction. She says she is feeling much improved. She denies having any nausea or vomting. - Objective Resuscitation Status: Resuscitation Status FULL:Full Resuscitation MAR Reviewed: Yes Vital Signs & Weight: Vital Signs (12 hours) Temp Pulse Resp BP Pulse Ox 08/12/18 08:00 95 08/12/18 07:07 97.9 F 71 18 134/74 95 Weight Weight 200 lb I&O: 08/11/18 08/12/18 08/13/18 06:59 06:59 06:59 Intake Total 480 3970 Balance 480 3970 Result Diagrams: 08/11/18 04:14 08/11/18 04:14 Additional Labs: Accuchecks 08/12/18 08/12/18 08/12/18 11:35 05:51 00:42 POC Glucose 96 77 89 08/11/18 08/11/18 08/11/18 21:27 20:45 19:58 POC Glucose 157 H 56 L* 52 L* 08/11/18 16:57 POC Glucose 63 L Phys Exam - Physical Examination HEENT: PERRLA Respiratory: no wheezing, no rales, no rhonchi, clear to auscultation bilateral Cardiovascular: RRR, no significant murmur, no rub no gallop Gastrointestinal: soft, non-tender, no distention, positive bowel sounds Musculoskeletal: no edema Dx/Plan (1) Fecal impaction Code(s): K56.41 - FECAL IMPACTION Status: Acute (2) UTI (urinary tract infection) Status: Acute Qualifiers: Urinary tract infection type: acute cystitis Hematuria presence: without hematuria Qualified Code(s): N30.00 - Acute cystitis without hematuria (3) HTN (hypertension) Code(s): I10 - ESSENTIAL (PRIMARY) HYPERTENSION Status: Chronic Qualifiers: Hypertension type: essential hypertension Qualified Code(s): I10 - Essential (primary) hypertension Comment: (4) Obesity (BMI 30-39.9) Code(s): E66.9 - OBESITY, UNSPECIFIED Status: Chronic (5) Paroxysmal atrial fibrillation Code(s): I48.0 - PAROXYSMAL ATRIAL FIBRILLATION Status: Chronic (6) Type 2 diabetes mellitus Status: Chronic Qualifiers: Diabetes mellitus terminal operator insulin use: without terminal operator use Diabetes mellitus complication status: with unspecified complications Qualified Code(s) : E11.8 - Type 2 diabetes mellitus with unspecified complications Comment: - Plan * UTI- symptomatically improved- urine culture is growing E. Coli and Klebsiella both of which are sensitive to quinolones * Fecal impaction- improved * HTN- blood pressure is stable * DM- blood glucose has been stable off Glypizide- will continue to hold. * Stable for discharge home
[2018-08-12 17:36] VITALS: BP 103/74; TEMP 98.5
--- NOTE | 2018-08-12 18:08 | DIS ---
DATE OF ADMISSION: 08/08/2018 DATE OF DISCHARGE: 08/12/2018 PRIMARY CARE PHYSICIAN: PENNY Vogel. DISCHARGE DISPOSITION: Home. PRIMARY DISCHARGE DIAGNOSES: 1. Urinary tract infection due to Escherichia coli and Klebsiella. 2. Fecal impaction. 3. Diarrhea secondary to #2. 4. Hypertension. 5. Paroxysmal atrial fibrillation. 6. Diabetes mellitus x2. DISCHARGE MEDICATIONS: Ciprofloxacin 250 mg twice a day for 5 days, warfarin 2.5 alternating with 5 mg as directed, Florastor 250 mg daily, Lasix 20 mg daily, metoprolol XL 50 mg daily, losartan 12.5 m g daily, iron sulfate 325 mg daily, Lipitor 40 mg at bedtime. PROCEDURES DONE DURING ADMISSION: The patient had a CT scan of the abdomen and pelvis. There was no evidence of any acute intra-abdominal abnormality and there was evidence of a right renal cyst. The patient had a lower extremity venous Doppler. There was no evidence of any upper extremity venous D oppler and there was no evidence of any left upper extremity venous thrombus. CODE STATUS: FULL CODE. ALLERGIES: No known drug allergies. HOSPITAL COURSE: Ms. Rico is an 83-year-old female who was brought to the hospital after experie ncing generalized malaise and "just not feeling well." She was evaluated in the ER and found to have a urinary tract infection. She was also complaining of some diarrhea and some abdominal discomfort. She was found to have a fecal impaction by CT scan. It is suspected that the diarrhea is watery st ool coming around the impaction. She was seen by Gastroenterology for this. She was given GoLYTELY, which relieved the impaction. Her urine culture grew Klebsiella as well as E. coli, both of which a re sensitive to quinolones. She will be discharged home on ciprofloxacin for 5 days and she will nee d to have close followup of her PT and INR due to the antibiotics. She also had some hypoglycemia on admission and glipizide was discontinued. Due to the hypoglycemia and her blood glucose actually re mained stable off of the glipizide. This is a dangerous medication in elderly patients and so theref ore, we will discontinue it at discharge.
--- NOTE | 2018-08-20 12:17 | EKG ---
Test Reason : Blood Pressure : / mmHG Vent. Rate : 072 BPM Atrial Rate : 089 BPM P-R Int : 000 ms QRS Dur : 152 ms QT Int : 436 ms P-R-T Axes : 000 -69 040 degrees QTc Int : 477 ms Ventricular-paced rhythm Abnormal ECG Confirmed by DANIELA WITT ([id number]), editor newspaper RULA ARVIZU ([id number]) on 08/20/2018 12:17:27 PM Referred By: FELISHA Confirmed By:DANIELA WITT
== END 2018-08-12 16:05 | disposition home health service (06) | DRG 690 ==
LOC: ERS 16:29 → T4-B 18:00
PROVIDERS: ADMIT Internal Medicine; ATTEND Internal Medicine
DX: N39.0 Urinary tract infection, site not specified (principal); C20 Malignant neoplasm of rectum; A04.72 Enterocolitis due to Clostridium difficile, not specified as recurrent; B96.20 Unspecified Escherichia coli [E. coli] as the cause of diseases classified elsewhere; B96.1 Klebsiella pneumoniae [K. pneumoniae] as the cause of diseases classified elsewhere; I25.10 Atherosclerotic heart disease of native coronary artery without angina pectoris; I48.0 Paroxysmal atrial fibrillation; I11.0 Hypertensive heart disease with heart failure; I50.9 Heart failure, unspecified; E11.8 Type 2 diabetes mellitus with unspecified complications; Z79.4 Long term (current) use of insulin; E78.5 Hyperlipidemia, unspecified; E66.01 Morbid (severe) obesity due to excess calories; Z68.30 Body mass index [BMI] 30.0-30.9, adult; G47.33 Obstructive sleep apnea (adult) (pediatric); M10.9 Gout, unspecified; Z95.0 Presence of cardiac pacemaker; K56.41 Fecal impaction; K63.89 Other specified diseases of intestine
CPT/HCPCS: 36415; 36416; 71045; 74177; 80048; 80053; 81003; 81015; 83605; 83630; 85025; 85610; 87040; 87045; 87046; 87077; 87086; 87186; 87324; 87449; 87493; 87899; 93005; 96365; 96375; A4216; A4353; J0696; J1650; J3370; J7050; S0028

== ENCOUNTER 2019-02-07 10:55 | Inpatient (IN) | payer MEDICARE ==
[2019-02-07 11:42] LABS: #Lymphocytes 0.4 thou/uL (1.20-3.40); #Monocytes 0.8 thou/uL (0.11-0.59); #Neutrophils 9.5 thou/uL (1.40-6.50); %Basophils 0.1 % (0.0-1.0); %Eosinophils 0.3 % (0.0-10.0); %Lymphocytes 3.8 % (21.0-51.0); %Monocytes 7.6 % (0.0-10.0); %Neutrophils 88.2 % (42.0-75.0); Hemoglobin 8.4 g/dL (12.0-16.0); Mean Corpuscular HGB CONC 30.3 g/dL (32.0-36.0); Mean Corpuscular Hemoglobin 24.6 pg (27.0-31.0); Mean Corpuscular Volume 81.2 fL (78.0-98.0); Mean Platelet Volume 8.2 fL (7.4-10.4); Platelet Count 422 thou/uL (130-400); RBC Distribution Width 14.4 % (11.5-14.5); Red Blood Cell (RBC) Count 3.42 mill/uL (4.20-5.40); White Blood Cell (WBC) Count 10.7 thou/uL (4.8-10.8)
[2019-02-07 11:48] LABS: INR-International Normal Ratio 1.9; PTT 37.8 SEC (22.9-36.1); Prothrombin Time 21.9 SEC (12.0-14.7)
--- NOTE | 2019-02-07 11:55 | RAD ---
SINGLE VIEW OF THE CHEST: Comparison: 08-08-18 History: Shortness of breath, productive cough, fever. FINDINGS: Single view of the chest shows an enlarged but stable cardiomediastinal silhouette with atherosclerot ic calcifications in the aorta. The pacemaker is unchanged in position. There is no evidence of conso lidation, mass or pleural effusion. IMPRESSION: No evidence of acute cardiopulmonary disease. POS: [facility]
[2019-02-07 12:06] LABS: ALT (SGPT) 8 U/L (8-55); AST (SGOT) 13 U/L (5-34); Alkaline Phosphatase 81 U/L (40-150); Anion Gap 10 mmol/L (10-20); BUN (Urea Nitrogen) 23 mg/dL (9.8-20.1); Bilirubin, Total 0.4 mg/dL (0.2-1.2); Calc. Creatinine Clearance 0 mL/min (70-130); Calcium 8.8 mg/dL (7.8-10.44); Carbon Dioxide 25 mmol/L (23-31); Chloride 105 mmol/L (98-107); Estimated GFR-MDRD 53; Globulin 3.6 g/dL (2.4-3.5); Glucose 145 mg/dL (83-110); Protein, Total 6.6 g/dL (6.0-8.3); Sodium 136 mmol/L (136-145)
[2019-02-07] MEDS ORDERED: cefTRIAXone\\ROCEPHIN 1 GM VIAL ONE ×2 (12:20→12:26)
[2019-02-07 12:35] LABS: Bilirubin Negative (Negative); Blood, Urine Trace (Negative); Glucose, Urine (Dipstick) Negative (Negative); Leukocyte Large (Negative); Nitrite Negative (Negative); Protein, Urine (Dipstick) Trace mg/dL (Neg-Trace); Urobilinogen 0.2 mg/dL (0.2-1.0); pH, Urine 5.5 (5.0-9.0)
[2019-02-07 12:41] LABS: Clarity CLEAR (Clear)
[2019-02-07 12:45] LABS: Bacteria/HPF 4+ HPF (None Seen); Hyaline Casts/LPF NONE SEEN LPF (0-3 Hyaline); RBC/HPF 0-3 HPF (0-3); Squamous Epithelial 0-3 HPF (0-3)
[2019-02-07] MEDS ORDERED: Oseltamivir 75 MG CAP PO SCH (14:30)
[2019-02-07 15:08] LABS: Troponin I 0.028 ng/mL (< 0.028)
[2019-02-07] MEDS ORDERED: Dextrose 5% in Water 1,000 ML IV PRN (15:48)
[2019-02-07] MEDS ORDERED: Dextrose 50% Abboject 50 ML SYRINGE SLOW IVP PRN (15:48)
[2019-02-07] MEDS ORDERED: HumaLOG 300 UNITS/3 ML VIAL SC PRN (15:48)
--- NOTE | 2019-02-07 17:26 | RAD ---
ABDOMEN ONE VIEW: 01/11/19 HISTORY: Fecal impaction. COMPARISON: None. FINDINGS: There are multiple sutures projecting over the lower pelvis. There is mild stool burden throughout th e colon. No dilated air filled loops of large or small bowel. No acute osseous abnormality. Evaluation for free air is limited without an upright examination. Moderate degenerative disease lower lumbar spine. IMPRESSION: Moderate stool burden. POS: [facility]
[2019-02-07] MEDS: Oseltamivir 75 MG CAP PO SCH (21:40)
[2019-02-07 22:22] VITALS: BMI 33.3
--- NOTE | 2019-02-07 22:24 | HP ---
CHIEF COMPLAINT: Fever. HISTORY OF PRESENT ILLNESS: This patient is an 84-year-old female with history of diabetes, history of heart failure, who states that she was actually feeling quite well yesterday. She had a home health nurse come visit her, checked her out, did her vital signs, told her she was doing quite well. About 15 minutes after that nurse left, the patient developed generalized malaise and fever. She felt a little bit short of breath last evening. Today, the patient had a significant fever. EMS was called. The patient was noted to be significantly febrile and tachypneic with respirations of 35 to 40, O2 saturations were 89% to 91% on room air. The patient was then subsequently transferred to the emergency department. The patient reports that she has some generalized malaise still, but has not had any other symptoms other than cough, which has been relatively nonproductive. REVIEW OF SYSTEMS: The patient does report that she has a fever and some shortness of breath and cough. She also reports that she has incontinence of stool, which has been intermittent problem for her for a number of months, but seems to be worse now. She reports that she has some incontinence, gets cleaned up and then shortly after has small bowel movement again, it has been apparently a bit more than small the last couple of bowel movements today. All other systems were reviewed and all positives and negatives noted in history of present illness. PAST MEDICAL HISTORY: Notable for CHF; gout; atrial fibrillation; diabetes; rectal cancer, which did not require radiation, apparently was adequately excised surgically; obesity; asthma; coronary artery disease; obstructive sleep apnea, on CPAP. PAST SURGICAL HISTORY: Cardiac ablation with pacemaker placement, appendectomy, cholecystectomy, hysterectomy, colostomy with reversal, and craniotomy for apparent prior benign brain tumor. FAMILY HISTORY: Mother of uterine cancer. Daughter of uterine cancer. Another daughter of lung cancer. SOCIAL HISTORY: The patient is a nonsmoker, nondrinker, and nondrug user. She says she has never smoked. She is a DNR and her daughter is her surrogate decision maker should that become necessary. ALLERGIES: NONE. CURRENT MEDICATIONS: 1. Warfarin 5 mg daily. 2. Glipizide 5 mg daily. 3. Metoprolol 50 mg daily. 4. Atorvastatin 40 mg at bedtime. 5. Losartan 25 mg daily. 6. Lasix 40 mg daily. PHYSICAL EXAMINATION: VITAL SIGNS: Most recent vitals; blood pressure 96/41, pulse 70, respirations 18, O2 saturations 98% on room air. GENERAL APPEARANCE: Obese, age-appropriate female. She is in no distress. She is awake, alert, oriented, pleasant, and cooperative. HEENT: PERRL. No OP lesions. NECK: Supple and symmetric. She has no lymphadenopathy, JVD, or carotid bruits. HEART: Regular rate and rhythm without murmurs, gallops, or rubs. LUNGS: Diminished throughout with some very minimal scattered expiratory wheeze. ABDOMEN: Soft, nontender, and nondistended. Positive bowel sounds. No masses. No organomegaly. EXTREMITIES: No cyanosis, clubbing, or edema. NEUROLOGIC: The patient appears to be intact with no focal deficits and good spontaneous movements throughout. PSYCH: The patient appears to have normal affect and behavior. LABORATORY DATA: White count 7.7, hemoglobin 8.4, platelets 422. INR is 1.9, PTT is 37.8. Sodium 136, potassium 4.0, chloride 105, CO2 of 25, BUN 23, creatinine 0.99, glucose 145, lactic acid 1.8, calcium 8.8, AST is 13, ALT is 8, albumin 3.0. Troponin 0.017, 0.028. Urinalysis shows trace blood, large leukocyte esterase, 0 to 3 red cells, greater than 50 white cells, 4+ bacteria. Flu screen positive for influenza A. chest x-ray, negative. IMPRESSION AND PLAN: 1. Acute hypoxic respiratory failure. The patient was tachypneic with acute hypoxia on arrival to EMS, requiring some supplemental oxygen. She also has a history of some underlying asthma and possibly some chronic obstructive pulmonary disease, even though she has never smoked. She reports she worked in [employer] for decades and had a great deal of secondhand smoke exposure. We will keep her on oxygen supplementation and nebulizer treatments as needed. 2. Influenza A, likely exacerbating her underlying chronic lung disease. We will keep her on Tamiflu 75 b.i.d. 3. Urinary tract infection. We will follow up blood cultures. Treat with Rocephin. 4. Fecal incontinence. We will get a KUB just to ensure the patient does not have an obstruction as she reports similar symptoms in the past with the fecal impaction. The patient reports that she has had routine followup colonoscopies and is confident that there is no recurrence of any cancers based on that. 5. Anemia. The patient has mild chronic anemia; however, her values today are lower than they have been previously. We will check iron studies and Hemoccult, given the fact that she is still on the anticoagulation. 6. Atrial fibrillation with good rate control. Continue warfarin and metoprolol. 7. Diabetes mellitus. Continue glipizide. We will keep her on a diabetic diet. Check Accu-Cheks and provide sliding scale coverage. 8. Hypertension. The patient's blood pressure is actually a bit low presently. We will continue to monitor to see if she is going to need any additional blood pressure, we can hold those medicines for now until her blood pressure rebounds better. 9. History of coronary artery disease, stable. 10. History of congestive heart failure. No evidence of decompensation. Job ID: [id number]
[2019-02-08 06:46] LABS: Anion Gap 11 mmol/L (10-20); BUN (Urea Nitrogen) 27 mg/dL (9.8-20.1); Calc. Creatinine Clearance 55 mL/min (70-130); Calcium 8.6 mg/dL (7.8-10.44); Carbon Dioxide 24 mmol/L (23-31); Chloride 105 mmol/L (98-107); Estimated GFR-MDRD 48; Glucose 92 mg/dL (83-110); Iron 11 ug/dL (50-170); Iron Binding Capacity, Total 245 mcg/dL (265-497); Potassium 4.3 mmol/L (3.5-5.1); Sodium 136 mmol/L (136-145)
[2019-02-08 06:49] LABS: Band 2 % (5-11); Hemoglobin 7.6 g/dL (12.0-16.0); Hypochromia SLIGHT = 6-15 cells (100X) (0-5/hpf); Lymphocytes 5 % (21-51); MDiff Complete? YES; Mean Corpuscular HGB CONC 29.6 g/dL (32.0-36.0); Mean Corpuscular Hemoglobin 24.1 pg (27.0-31.0); Mean Corpuscular Volume 81.4 fL (78.0-98.0); Mean Platelet Volume 8.6 fL (7.4-10.4); Monocytes 13 % (0-10); Neutrophil 80 % (42-75); Platelet Count 359 thou/uL (130-400); Platelet Morphology Comment Appears Adequate; RBC Distribution Width 14.4 % (11.5-14.5); Red Blood Cell (RBC) Count 3.16 mill/uL (4.20-5.40); White Blood Cell (WBC) Count 7.2 thou/uL (4.8-10.8)
[2019-02-08] MEDS: Oseltamivir 75 MG CAP PO SCH ×2 (08:52→21:32)
[2019-02-08] MEDS ORDERED: Prevnar 13-Val Conj/PF 0.5 ML SYRINGE IM ONE (09:00)
[2019-02-08] MEDS ORDERED: Enoxaparin Sodium 40 MG/0.4 ML SYRINGE SC SCH (09:00)
[2019-02-08] MEDS ORDERED: Vancomycin HCl 1 GM in Premix Bag 1 BAG IVPB SCH (11:15)
[2019-02-08] MEDS ORDERED: predniSONE 20 MG TAB PO SCH (11:24)
--- NOTE | 2019-02-08 11:27 | PDOC.PN ---
- Subjective Encounter Start Date: 02/08/19 Encounter Start Time: 11:25 Subjective: Admitted with acute onset of fever, SOB, cough and malaise. -: Found to have positive infuenza A test. -: Has history of asthma. Reports wheezing. - Objective Resuscitation Status - Order Detail: 02/07/19 15:47 Resuscitation Status Routine Resuscitation Status: DNAR: NO Resuscitation Discussed with: Patient and daughters Vital Signs & Weight: Vital Signs (12 hours) Temp Pulse Resp BP Pulse Ox 02/08/19 08:38 99.8 F H 70 18 115/56 L 94 L 02/08/19 04:05 100.8 F H 70 18 118/56 L 91 L Weight Weight 200 lb 7 oz Result Diagrams: 02/08/19 05:22 02/08/19 05:22 Additional Labs: Accuchecks 02/08/19 02/07/19 05:25 21:03 POC Glucose 108 118 H Phys Exam - Physical Examination Acutely ill looking. febrile. HEENT: PERRLA Dry oralmucosa Neck: supple Fair air entry bilaterally with transmitted sound and scattered rhonchi. Cardiovascular: no significant murmur irregular. Gastrointestinal: soft, non-tender, no distention, positive bowel sounds obese Musculoskeletal: no edema, pulses present Neurological: non-focal, moves all 4 limbs Psychiatric: normal affect, A&O x 3 Dx/Plan (1) UTI (urinary tract infection) Status: Acute Qualifiers: Urinary tract infection type: acute cystitis Hematuria presence: without hematuria Qualified Code(s): N30.00 - Acute cystitis without hematuria (2) Sepsis Code(s): A41.9 - SEPSIS, UNSPECIFIED ORGANISM Status: Acute (3) Bacteremia due to Streptococcus Code(s): R78.81 - BACTEREMIA; B95.5 - UNSP STREPTOCOCCUS THE CAUSE OF DISEASES CLASSD ELSWHR Status: Acute (4) Influenza A with pneumonia Code(s): J09.X1 - INFLUENZA DUE TO IDENT NOVEL INFLUENZA A VIRUS W PNEUMONIA Status: Acute (5) Fecal incontinence Code(s): R15.9 - FULL INCONTINENCE OF FECES Status: Acute Comment: Most likely due to constipation. (6) Chronic anticoagulation Code(s): Z79.01 - INTERMEDIATE (CURRENT) USE OF ANTICOAGULANTS Status: Acute (7) Acute respiratory insufficiency Code(s): R06.89 - OTHER ABNORMALITIES OF BREATHING Status: Acute (8) H/O cardiac pacemaker Code(s): Z95.0 - PRESENCE OF CARDIAC PACEMAKER Status: Chronic (9) HTN (hypertension) Code(s): I10 - ESSENTIAL (PRIMARY) HYPERTENSION Status: Chronic Qualifiers: Hypertension type: essential hypertension Qualified Code(s): I10 - Essential (primary) hypertension Comment: (10) CLEMENCIA (obstructive sleep apnea) Code(s): G47.33 - OBSTRUCTIVE SLEEP APNEA (ADULT) (PEDIATRIC) Status: Chronic (11) Obesity (BMI 30-39.9) Code(s): E66.9 - OBESITY, UNSPECIFIED Status: Chronic (12) Paroxysmal atrial fibrillation Code(s): I48.0 - PAROXYSMAL ATRIAL FIBRILLATION Status: Chronic (13) Type 2 diabetes mellitus Status: Chronic Qualifiers: Diabetes mellitus exterminator insulin use: without care home use Diabetes mellitus complication status: with unspecified complications Qualified Code(s) : E11.8 - Type 2 diabetes mellitus with unspecified complications Comment: - Plan Add IV vancomycin and oral azithromycin give positive BldCx and pneum -: Start gentle hydration -: Add bronchodilators and inhaled steroid. -: Continue tamiflu -: Get sputum culture and repeat blood cultures * .
[2019-02-08] MEDS: cefTRIAXone\\ROCEPHIN 1 GM in Sodium Chloride 0.9% 100 ML IVPB SCH (11:57)
[2019-02-08] MEDS: Lactated Ringer's 1,000 ML IV SCH (12:50)
[2019-02-08] MEDS: Vancomycin HCl 1.25 GM in Sodium Chloride 0.9% 250 ML 250 ML IVPB SCH ×2 (12:57→13:02)
[2019-02-08] MEDS ORDERED: Azithromycin 250 MG TAB PO SCH (13:00)
[2019-02-08 13:08] LABS: INR-International Normal Ratio 1.6; Prothrombin Time 19.3 SEC (12.0-14.7)
[2019-02-08] MEDS: Acetaminophen 325 MG TAB PO PRN (13:26)
[2019-02-08] MEDS: Warfarin Sodium 2.5 MG TAB PO SCH (17:34)
[2019-02-08] MEDS: Budesonide 0.5 MG/2 ML NEB INH SCH (19:00)
[2019-02-08] MEDS: Polyethylene Glycol 3350 17 GM Packet PO SCH (21:22)
[2019-02-08] MEDS: Atorvastatin Calcium 40 MG TAB PO SCH (21:23)
[2019-02-08] MEDS: guaiFENesin ER 600 MG TAB PO SCH (21:23)
[2019-02-09 07:23] LABS: INR-International Normal Ratio 1.5; Prothrombin Time 18.3 SEC (12.0-14.7)
[2019-02-09 07:32] LABS: Hemoglobin 7.7 g/dL (12.0-16.0); Mean Corpuscular HGB CONC 29.8 g/dL (32.0-36.0); Mean Corpuscular Hemoglobin 25.2 pg (27.0-31.0); Mean Corpuscular Volume 84.8 fL (78.0-98.0); Mean Platelet Volume 8.4 fL (7.4-10.4); Platelet Count 347 thou/uL (130-400); RBC Distribution Width 14.5 % (11.5-14.5); Red Blood Cell (RBC) Count 3.06 mill/uL (4.20-5.40); White Blood Cell (WBC) Count 4.3 thou/uL (4.8-10.8)
[2019-02-09 07:40] LABS: ALT (SGPT) 11 U/L (8-55); AST (SGOT) 21 U/L (5-34); Albumin 2.4 g/dL (3.4-4.8); Alkaline Phosphatase 60 U/L (40-150); Anion Gap 13 mmol/L (10-20); BUN (Urea Nitrogen) 30 mg/dL (9.8-20.1); Bilirubin, Total 0.2 mg/dL (0.2-1.2); Calc. Creatinine Clearance 50 mL/min (70-130); Calcium 8.2 mg/dL (7.8-10.44); Carbon Dioxide 21 mmol/L (23-31); Chloride 107 mmol/L (98-107); Estimated GFR-MDRD 42; Globulin 3.1 g/dL (2.4-3.5); Glucose 76 mg/dL (83-110); Potassium 4.6 mmol/L (3.5-5.1); Protein, Total 5.5 g/dL (6.0-8.3); Sodium 136 mmol/L (136-145)
[2019-02-09] MEDS: Budesonide 0.5 MG/2 ML NEB INH SCH ×2 (07:40→18:55)
[2019-02-09 08:42] LABS: Band 13 % (5-11); Elliptocytes SLIGHT = 2-5 cells (100X) (0-1/hpf); Eosinophils 2 % (0-10); Hypochromia SLIGHT = 6-15 cells (100X) (0-5/hpf); Lymphocytes 27 % (21-51); MDiff Complete? YES; Metamyelocyte 1 % (0-0); Monocytes 15 % (0-10); Neutrophil 41 % (42-75); Ovalocytes MODERATE= 6-15 cells (100X) (0-1/hpf); Platelet Morphology Comment Appears Adequate; Polychromasia SLIGHT = 2-3 cells (100X) (0-2/hpf)
[2019-02-09] MEDS ORDERED: Azithromycin 250 MG TAB PO SCH (09:00)
[2019-02-09] MEDS: guaiFENesin ER 600 MG TAB PO SCH ×2 (09:18→21:54)
[2019-02-09] MEDS: Acetaminophen 325 MG TAB PO PRN (09:26)
[2019-02-09] MEDS: Polyethylene Glycol 3350 17 GM Packet PO SCH ×2 (09:28→21:54)
[2019-02-09] MEDS: Oseltamivir 75 MG CAP PO SCH ×2 (09:31→21:53)
[2019-02-09 12:02] LABS: Vancomycin, Trough 17.4 ug/mL
[2019-02-09] MEDS: cefTRIAXone\\ROCEPHIN 1 GM in Sodium Chloride 0.9% 100 ML IVPB SCH (12:43)
[2019-02-09] MEDS: Vancomycin HCl 1.25 GM in Sodium Chloride 0.9% 250 ML 250 ML IVPB SCH (12:50)
--- NOTE | 2019-02-09 14:26 | PDOC.PN ---
- Subjective Encounter Start Date: 02/09/19 Encounter Start Time: 14:24 Subjective: Feeling better. Denied fever. SOB is better. Appetite is improving -: Patient has been wheelchair bound for about 1 year due to worsening weaknes -: reported that she can stand occasionally - Objective Resuscitation Status - Order Detail: 02/07/19 15:47 Resuscitation Status Routine Resuscitation Status: DNAR: NO Resuscitation Discussed with: Patient and daughters Vital Signs & Weight: Vital Signs (12 hours) Temp Pulse Resp BP Pulse Ox 02/09/19 14:21 72 16 98 02/09/19 12:55 97.8 F 78 18 124/58 L 95 02/09/19 10:49 68 18 98 02/09/19 09:15 97.8 F 70 18 124/58 L 96 02/09/19 07:40 71 18 95 02/09/19 04:00 98.3 F 70 16 130/60 94 L Weight Weight 200 lb 7 oz I&O: 02/08/19 02/09/19 02/10/19 06:59 06:59 06:59 Intake Total 1450 Balance 1450 Result Diagrams: 02/09/19 07:00 02/09/19 07:00 Additional Labs: Accuchecks 02/09/19 02/09/19 02/08/19 10:48 06:30 21:06 POC Glucose 114 H 89 112 H 02/08/19 17:00 POC Glucose 95 Phys Exam - Physical Examination obese elderly female in no distress HEENT: PERRLA, moist MMs Neck: no JVD Fair air entry bilaterally with transmitted sound. No rhonchi appreciated. Cardiovascular: RRR, no significant murmur Gastrointestinal: soft, non-tender, no distention, positive bowel sounds Musculoskeletal: no edema, pulses present Neurological: non-focal, moves all 4 limbs Psychiatric: A&O x 3 Dx/Plan (1) Bacteremia due to Streptococcus Code(s): R78.81 - BACTEREMIA; B95.5 - UNSP STREPTOCOCCUS THE CAUSE OF DISEASES CLASSD ELSWHR Status: Acute (2) UTI (urinary tract infection) Status: Acute Qualifiers: Urinary tract infection type: acute cystitis Hematuria presence: without hematuria Qualified Code(s): N30.00 - Acute cystitis without hematuria Comment: Culture grew E coli and klebsiela which are both susceptible to levaquin but resistant to ceftriaxone (3) Sepsis Code(s): A41.9 - SEPSIS, UNSPECIFIED ORGANISM Status: Acute (4) Influenza A with pneumonia Code(s): J09.X1 - INFLUENZA DUE TO IDENT NOVEL INFLUENZA A VIRUS W PNEUMONIA Status: Acute (5) Fecal incontinence Code(s): R15.9 - FULL INCONTINENCE OF FECES Status: Acute Comment: Most likely due to constipation. (6) Chronic anticoagulation Code(s): Z79.01 - INSIDE SALES AGENT (CURRENT) USE OF ANTICOAGULANTS Status: Acute (7) Acute respiratory insufficiency Code(s): R06.89 - OTHER ABNORMALITIES OF BREATHING Status: Acute (8) H/O cardiac pacemaker Code(s): Z95.0 - PRESENCE OF CARDIAC PACEMAKER Status: Chronic (9) HTN (hypertension) Code(s): I10 - ESSENTIAL (PRIMARY) HYPERTENSION Status: Chronic Qualifiers: Hypertension type: essential hypertension Qualified Code(s): I10 - Essential (primary) hypertension Comment: (10) CLEMENCIA (obstructive sleep apnea) Code(s): G47.33 - OBSTRUCTIVE SLEEP APNEA (ADULT) (PEDIATRIC) Status: Chronic (11) Obesity (BMI 30-39.9) Code(s): E66.9 - OBESITY, UNSPECIFIED Status: Chronic (12) Paroxysmal atrial fibrillation Code(s): I48.0 - PAROXYSMAL ATRIAL FIBRILLATION Status: Chronic (13) Type 2 diabetes mellitus Status: Chronic Qualifiers: Diabetes mellitus residential insulin use: without terminal operations supervisor use Diabetes mellitus complication status: with unspecified complications Qualified Code(s) : E11.8 - Type 2 diabetes mellitus with unspecified complications Comment: (14) Physical deconditioning Code(s): R53.81 - OTHER MALAISE Status: Acute (15) Anemia Code(s): D64.9 - ANEMIA, UNSPECIFIED Status: Acute - Plan DC Rocephin and start Levaquin -: Continure vancomycin for strep bacteremia while awaiting susceptibility -: Monitor renal function closely as creat is trending up. ? vanc toxicity -: Start oral ferrous sulphate supplementation for iron deficiency -: Monitor H/h. consult PT * .
[2019-02-09] MEDS: Lactated Ringer's 1,000 ML IV SCH (15:01)
[2019-02-09] MEDS: Ferrous Sulfate 325 MG TAB PO SCH ×2 (15:16→21:54)
[2019-02-09] MEDS: Warfarin Sodium 2.5 MG TAB PO SCH (16:14)
[2019-02-09] MEDS: Atorvastatin Calcium 40 MG TAB PO SCH (21:53)
[2019-02-10 05:59] LABS: INR-International Normal Ratio 1.4; Prothrombin Time 17.1 SEC (12.0-14.7)
[2019-02-10 06:10] LABS: Anion Gap 11 mmol/L (10-20); BUN (Urea Nitrogen) 28 mg/dL (9.8-20.1); Calc. Creatinine Clearance 54 mL/min (70-130); Calcium 8.4 mg/dL (7.8-10.44); Carbon Dioxide 24 mmol/L (23-31); Chloride 106 mmol/L (98-107); Estimated GFR-MDRD 47; Glucose 79 mg/dL (83-110); Iron 40 ug/dL (50-170); Iron Binding Capacity, Total 226 mcg/dL (265-497); Potassium 4.3 mmol/L (3.5-5.1); Sodium 137 mmol/L (136-145)
[2019-02-10] MEDS: Budesonide 0.5 MG/2 ML NEB INH SCH ×2 (06:28→19:35)
[2019-02-10 07:26] LABS: Band 16 % (5-11); Eosinophils 3 % (0-10); Hemoglobin 7.5 g/dL (12.0-16.0); Lymphocytes 16 % (21-51); MDiff Complete? YES; Mean Corpuscular HGB CONC 30.8 g/dL (32.0-36.0); Mean Corpuscular Hemoglobin 25.2 pg (27.0-31.0); Mean Corpuscular Volume 81.9 fL (78.0-98.0); Mean Platelet Volume 8.3 fL (7.4-10.4); Monocytes 13 % (0-10); Neutrophil 52 % (42-75); Platelet Count 341 thou/uL (130-400); RBC Distribution Width 14.4 % (11.5-14.5); Red Blood Cell (RBC) Count 2.98 mill/uL (4.20-5.40); White Blood Cell (WBC) Count 4.3 thou/uL (4.8-10.8)
[2019-02-10] MEDS: guaiFENesin ER 600 MG TAB PO SCH ×2 (08:49→20:35)
[2019-02-10] MEDS: Acetaminophen 325 MG TAB PO PRN (08:49)
[2019-02-10] MEDS: Oseltamivir 75 MG CAP PO SCH ×2 (08:49→20:36)
[2019-02-10] MEDS: Ferrous Sulfate 325 MG TAB PO SCH ×3 (08:49→20:35)
[2019-02-10] MEDS: Polyethylene Glycol 3350 17 GM Packet PO SCH ×2 (08:50→20:37)
[2019-02-10] MEDS: Vancomycin HCl 1.25 GM in Sodium Chloride 0.9% 250 ML 250 ML IVPB SCH (12:42)
--- NOTE | 2019-02-10 14:23 | PQF ---
EDMAR HERNANDEZ RICHA MD [id number] [facility]296 [id number] CLINICAL DOCUMENTATION IMPROVEMENT CLARIFICATION FORM: ICD-10 Updated PLEASE DO AN ADDENDUM TO THE PROGRESS NOTE WITH ANY DOCUMENTATION UPDATES OR ADDITIONS AND CARRY THROUGH TO DC SUMMARY. THANK YOU. DATE: 02/10/19 ATTN:DR. Francesca BOWMAN Please exercise your independent, professional judgment in responding to the clarification form. Clinical indicators are provided on the bottom of this form for your review. Please check appropriate box(s): Conflicting documentation was noted in the Medical Record, please clarify if patient is being treated/monitored for: [ X] Acute Respiratory Failure W/ hypoxia [ ] Acute Respiratory Insufficiency [ ] Other diagnosis [ ] Unable to determine In addition, please specify: Present on Admission (POA): [ X ] Yes [ ] No [ ] Unable to determine For continuity of documentation, please document condition throughout progress notes and discharge summary. Thank You. CLINICAL INDICATORS - SIGNS / SYMPTOMS/ LABS 02/07 ED RESP 35-40, PER EMS UPON ARRIVAL PT SATTING 89-91 % ON RA > 95% ON 1L/NC 02/07 H &P (FICKLEN) IMPRESSION AND PLAN: ACUTE HYPOXIC RESPIRATORY FAILURE. THE PATIENT WAS TACHYPNEIC W/ ACUTE HYPOXIA ON ARRIVAL TO EMS, REQUIRING SUPPLEMENTAL OXYGEN. 02/08 - 02/09 PN (OBI) DX/PLAN: 7) ACUTE RESPIRATORY INSUFFICIENCY- ACUTE RISK HX OF ASTHMA INFLUENZA A W/ PNEUMONIA TREATMENTS SUPPLEMENTAL O2 (02/07) DUONEB (02/08 - PRESENT) THANK YOU! Aisha (This form is maintained as a part of the permanent medical record) 2014 [employer] All Rights Reserved [email or web address] [phone] MTDD
--- NOTE | 2019-02-10 16:18 | PDOC.PN ---
- Subjective Encounter Start Date: 02/10/19 Encounter Start Time: 16:16 Subjective: feels better.no new complaints - Objective Resuscitation Status - Order Detail: 02/07/19 15:47 Resuscitation Status Routine Resuscitation Status: DNAR: NO Resuscitation Discussed with: Patient and daughters NESHA Reviewed: Yes Vital Signs & Weight: Vital Signs (12 hours) Temp Pulse Resp BP Pulse Ox 02/10/19 13:33 68 16 98 02/10/19 12:53 97.0 F L 70 16 127/59 L 98 02/10/19 10:07 70 16 95 02/10/19 08:54 98.0 F 70 18 160/78 H 98 02/10/19 06:30 68 18 98 02/10/19 06:28 68 18 98 Weight Weight 200 lb 7 oz I&O: 02/09/19 02/10/19 02/11/19 06:59 06:59 06:59 Intake Total 1450 1690 Balance 1450 1690 Result Diagrams: 02/10/19 05:15 02/10/19 05:15 Additional Labs: Accuchecks 02/10/19 02/10/19 02/09/19 10:48 05:55 21:00 POC Glucose 131 H 86 114 H 02/09/19 17:23 POC Glucose 125 H Phys Exam - Physical Examination Constitutional: NAD HEENT: PERRLA, moist MMs, sclera anicteric, oral pharynx no lesions Neck: no nodes, no JVD, supple, full ROM Respiratory: no wheezing, no rales, no rhonchi, clear to auscultation bilateral Cardiovascular: RRR, no significant murmur, no rub Gastrointestinal: soft, non-tender, no distention, positive bowel sounds Musculoskeletal: no edema, pulses present Neurological: non-focal, normal sensation, moves all 4 limbs Psychiatric: normal affect, A&O x 3 Skin: no rash Dx/Plan (1) Acute respiratory failure with hypoxia Code(s): J96.01 - ACUTE RESPIRATORY FAILURE WITH HYPOXIA Status: Acute (2) Influenza A with pneumonia Code(s): J09.X1 - INFLUENZA DUE TO IDENT NOVEL INFLUENZA A VIRUS W PNEUMONIA Status: Acute (3) UTI (urinary tract infection) Status: Acute Qualifiers: Urinary tract infection type: acute cystitis Hematuria presence: without hematuria Qualified Code(s): N30.00 - Acute cystitis without hematuria Comment: Culture grew E coli and klebsiela which are both susceptible to levaquin but resistant to ceftriaxone (4) Bacteremia due to Streptococcus Code(s): R78.81 - BACTEREMIA; B95.5 - UNSP STREPTOCOCCUS THE CAUSE OF DISEASES CLASSD ELSWHR Status: Acute Comment: mane crystal.stop vancomycin (5) Acute renal failure superimposed on stage 3 chronic kidney disease Code(s): N17.9 - ACUTE KIDNEY FAILURE, UNSPECIFIED; N18.3 - CHRONIC KIDNEY DISEASE, STAGE 3 (MODERATE) Status: Acute Comment: improving (6) Chronic anticoagulation Code(s): Z79.01 - DIET CLERK (CURRENT) USE OF ANTICOAGULANTS Status: Chronic (7) Asthma Code(s): J45.909 - UNSPECIFIED ASTHMA, UNCOMPLICATED Status: Chronic Qualifiers: Asthma severity: moderate Asthma complication type: with acute exacerbation Comment: (8) H/O cardiac pacemaker Code(s): Z95.0 - PRESENCE OF CARDIAC PACEMAKER Status: Chronic (9) HTN (hypertension) Code(s): I10 - ESSENTIAL (PRIMARY) HYPERTENSION Status: Chronic Qualifiers: Hypertension type: essential hypertension Qualified Code(s): I10 - Essential (primary) hypertension Comment: (10) CLEEMNCIA (obstructive sleep apnea) Code(s): G47.33 - OBSTRUCTIVE SLEEP APNEA (ADULT) (PEDIATRIC) Status: Chronic (11) Obesity (BMI 30-39.9) Code(s): E66.9 - OBESITY, UNSPECIFIED Status: Chronic (12) Paroxysmal atrial fibrillation Code(s): I48.0 - PAROXYSMAL ATRIAL FIBRILLATION Status: Chronic (13) Type 2 diabetes mellitus Status: Chronic Qualifiers: Diabetes mellitus shelter insulin use: without shelter use Diabetes mellitus complication status: with unspecified complications Qualified Code(s) : E11.8 - Type 2 diabetes mellitus with unspecified complications Comment: - Plan PT/OT, respiratory therapy, incentive spirometry, out of bed/ambulate, DVT proph w/SCDs DC in am.HD stable -: stop vancomycin.change levaquin to PO -: am labs -: INr per pharmacy.cont coumadin & rest of the home meds. * . Review of Systems - Review of Systems Constitutional: negative: fever, chills, sweats, weakness, malaise, other ENT: negative: Ear Pain, Ear Discharge, Nose Pain, Nose Discharge, Nose Congestion, Mouth Pain, Mouth Swelling, Throat Pain, Throat Swelling, Other Respiratory: negative: Cough, Dry, Shortness of Breath, Hemoptysis, SOB with Excertion, Pleuritic Pain, Sputum, Wheezing Cardiovascular: negative: chest pain, palpitations, orthopnea, paroxysmal nocturnal dyspnea, edema, light headedness, other Gastrointestinal: negative: Nausea, Vomiting, Abdominal Pain, Diarrhea, Constipation, Melena, Hematochezia, Other Genitourinary: negative: Dysuria, Frequency, Incontinence, Hematuria, Retention , Other Neurological: negative: Weakness, Numbness, Incoordination, Change in Speech, Confusion, Seizures, Other - Medications/Allergies Allergies/Adverse Reactions: Allergies Allergy/AdvReac Type Severity Reaction Status Date / Time No Known Allergies Allergy Verified 08/08/18 23:15 Medications: Current Medications Acetaminophen (Tylenol) 650 mg PO Q4H PRN PRN Reason: Headache/Fever/Mild Pain (1-3) Last Admin: 02/10/19 08:49 Dose: 650 mg Albuterol/Ipratropium (Duoneb) 3 ml NEB [id number] [facility] Last Admin: 02/10/19 13:33 Dose: 3 ml Albuterol/Ipratropium (Duoneb) 3 ml NEB Q2H PRN PRN Reason: SOB &/or Wheezing Atorvastatin Calcium (Lipitor) 40 mg PO HS [facility] Last Admin: 02/09/19 21:53 Dose: 40 mg Budesonide (Pulmicort Neb Solution) 0.5 mg INH BID-RT [facility] Last Admin: 02/10/19 06:28 Dose: 0.5 mg Dextrose/Water (Dextrose 50%) 25 gm SLOW IVP PRN PRN PRN Reason: Hypoglycemia Ferrous Sulfate (Feosol) 325 mg PO TID [facility] Last Admin: 02/10/19 15:21 Dose: 325 mg Glucagon (Glucagon) 1 mg IM PRN PRN PRN Reason: Hypoglycemia Guaifenesin (Mucinex) 600 mg PO Q12HR [facility] Last Admin: 02/10/19 08:49 Dose: 600 mg Dextrose/Water (D5w) 1,000 mls @ 0 mls/hr IV .Q0M PRN PRN Reason: Hypoglycemia Insulin Human Lispro (Humalog) 0 units SC .MILD SLIDING SCALE PRN PRN Reason: Mild Correctional Scale Iron Sucrose (Venofer) 200 mg SLOW IVP ONE [facility] Metoprolol Succinate (Toprol Xl) 25 mg PO DAILY [facility] Last Admin: 02/10/19 08:49 Dose: 25 mg Miscellaneous Medication (Pharmacy To Dose) 1 each IVPB PRN PRN PRN Reason: Pharmacy to dose Miscellaneous Medication (Pharmacy To Dose) 0 each PO .DOSE WARF PRN PRN Reason: WARFARIN LABS Oseltamivir Phosphate (Tamiflu) 75 mg PO BID [facility] Stop: 02/12/19 09:01 Last Admin: 02/10/19 08:49 Dose: 75 mg Polyethylene Glycol (Miralax) 17 gm PO BID [facility] Last Admin: 02/10/19 08:50 Dose: Not Given Warfarin Sodium (Coumadin) 5 mg PO 1700 [facility]
[2019-02-10] MEDS ORDERED: IRON SUCROSE COMPLEX 100 MG/5 ML SLOW IVP SCH (16:30)
[2019-02-10] MEDS ORDERED: Iron, Sodium Ferric Gluconate 125 MG in Sodium Chloride 0.9% 100 ML IVPB SCH (16:45)
[2019-02-10] MEDS ORDERED: Warfarin Sodium 2.5 MG TAB PO SCH (17:00)
[2019-02-10] MEDS ORDERED: Iron, Sodium Ferric Gluconate 250 MG in Sodium Chloride 0.9% 100 ML IVPB SCH (17:00)
[2019-02-10] MEDS: Atorvastatin Calcium 40 MG TAB PO SCH (20:35)
[2019-02-11 06:29] LABS: INR-International Normal Ratio 1.4
[2019-02-11] MEDS: Budesonide 0.5 MG/2 ML NEB INH SCH (06:38)
[2019-02-11] MEDS: Ferrous Sulfate 325 MG TAB PO SCH (09:02)
[2019-02-11] MEDS: Polyethylene Glycol 3350 17 GM Packet PO SCH (09:02)
[2019-02-11] MEDS: guaiFENesin ER 600 MG TAB PO SCH (09:02)
[2019-02-11] MEDS: Oseltamivir 75 MG CAP PO SCH (09:02)
[2019-02-11 10:44] LABS: Anion Gap 11 mmol/L (10-20); BUN (Urea Nitrogen) 17 mg/dL (9.8-20.1); Calc. Creatinine Clearance 74 mL/min (70-130); Calcium 8.4 mg/dL (7.8-10.44); Carbon Dioxide 23 mmol/L (23-31); Chloride 106 mmol/L (98-107); Estimated GFR-MDRD 67; Glucose 106 mg/dL (83-110); Potassium 4.3 mmol/L (3.5-5.1); Sodium 136 mmol/L (136-145)
[2019-02-11 10:50] LABS: #Lymphocytes 1.2 thou/uL (1.20-3.40); #Neutrophils 5.2 thou/uL (1.40-6.50); %Basophils 0.1 % (0.0-1.0); %Eosinophils 0.5 % (0.0-10.0); %Lymphocytes 16.1 % (21.0-51.0); %Monocytes 13.4 % (0.0-10.0); %Neutrophils 69.9 % (42.0-75.0); Anisocytosis SLIGHT = 6-15 cells (100X) (0-5/hpf); Hypochromia SLIGHT = 6-15 cells (100X) (0-5/hpf); MDiff Complete? YES; Mean Corpuscular HGB CONC 29.9 g/dL (32.0-36.0); Mean Corpuscular Hemoglobin 24.4 pg (27.0-31.0); Mean Corpuscular Volume 81.7 fL (78.0-98.0); Mean Platelet Volume 8.1 fL (7.4-10.4); Platelet Count 361 thou/uL (130-400); Poikilocytosis MODERATE=16-30 cells (100X) (0-5/hpf); RBC Distribution Width 14.7 % (11.5-14.5); Red Blood Cell (RBC) Count 3.28 mill/uL (4.20-5.40); White Blood Cell (WBC) Count 7.5 thou/uL (4.8-10.8)
[2019-02-11 12:38] VITALS: BP 187/83; TEMP 98
[2019-02-11] MEDS ORDERED: Warfarin Sodium 5 MG TAB PO SCH (17:00)
--- NOTE | 2019-02-13 07:37 | DIS ---
DATE OF ADMISSION: 02/07/2019 DATE OF DISCHARGE: 02/11/2019 DISCHARGE DIAGNOSES: 1. Severe sepsis. 2. Streptococcal bacteremia. 3. Urinary tract infection due to Escherichia coli and Klebsiella. 4. Influenza A with pneumonia. 5. Fecal incontinence. 6. Acute respiratory insufficiency. 7. Constipation. 8. Long-term chronic anticoagulation with Coumadin. 9. Hypertension. 10. Obstructive sleep apnea, on CPAP. 11. Morbid obesity. 12. Paroxysmal atrial fibrillation. 13. Type 2 diabetes mellitus. 14. Nuxkt-vo-kdatgfi anemia. 15. Physical deconditioning. 16. Iron deficiency anemia. HOSPITAL COURSE: An 84-year-old female with history of diabetes, heart failure, paroxysmal atrial fibrillation, who was admitted due to acute onset of fever and generalized weakness associated with tachypnea. The patient was found to be positive for influenza type A. She also admitted to cough. Impression of severe sepsis was made as the patient also had hypotension and acute kidney injury and was started on IV fluid. Broad-spectrum antimicrobial therapy also was commenced including Tamiflu, vancomycin, and IV Levaquin. The patient also was treated with bronchodilators as she has history of asthma. Urinalysis performed on presentation also was suggestive of UTI, and subsequent urine culture obtained grew E. coli and Klebsiella. Blood culture obtained on presentation also grew Streptococcus, not alpha Streptococcus, not Streptococcus pneumoniae or Enterococcus. The patient improved with antimicrobial therapy, and this was later streamlined in line with culture results. She also received physical therapy and was clinically improved and was subsequently discharged home. The patient at baseline needs help to ambulate and pretty much wheelchair bound. She was seen by Physical Therapy and was subsequently discharged home on home PT as well as home health. PHYSICAL EXAMINATION: VITAL SIGNS: Temperature 98.0, pulse 79, respiratory rate 20, SpO2 of 94 on room air, blood pressure 187/83. GENERAL: Obese, elderly female, in no obvious distress. Afebrile, anicteric. HEENT: Pupils are equal and reacting to light. Oral mucosa is moist. RESPIRATORY: Fair air entry bilateral with some transmitted sounds. No rhonchi were appreciated. CARDIOVASCULAR: Regular rhythm and rate. Normal heart sounds 1 and 2. No murmur was appreciated. GI: Obese, soft, nontender, and nondistended with normal bowel sounds. MUSCULOSKELETAL: Grossly normal looking. Atraumatic with no edema or erythema. NEUROLOGIC: Conscious, alert, and oriented x3 with appropriate mental status. Cranial nerves 2 through 12 are intact. Power is 5/5 upper limbs and 3/5 lower limbs. CONDITION AT DISCHARGE: Improved. DISCHARGE MEDICATIONS: 1. Lipitor 40 mg daily at bedtime. 2. Ferrous sulfate 325 mg . 3. Losartan 25 mg daily. 4. Toprol-XL 50 mg daily. 5. Mucinex 600 mg b.i.d. 6. Ferrous sulfate 325 mg . 7. Lasix 20 mg daily. 8. Levofloxacin 500 mg daily for 5 days. 9. Warfarin 5 mg daily. FOLLOWUP: The patient is to follow up with PCP within 1 week. The patient also is to have INR checks on Mondays and with results go to the PCP for Coumadin dose adjustment. TIME SPENT: This discharge took 37 minutes. Job ID: [id number]
== END 2019-02-11 14:19 | disposition home health service (06) | DRG 871 ==
LOC: ERS 10:55 → 2NO 19:17
PROVIDERS: ADMIT Internal Medicine; ATTEND Internal Medicine
DX: A40.9 Streptococcal sepsis, unspecified (principal); J96.01 Acute respiratory failure with hypoxia; J11.00 Influenza due to unidentified influenza virus with unspecified type of pneumonia; N30.00 Acute cystitis without hematuria; N17.9 Acute kidney failure, unspecified; I13.0 Hypertensive heart and chronic kidney disease with heart failure and stage 1 through stage 4 chronic kidney disease, or unspecified chronic kidney disease; J45.901 Unspecified asthma with (acute) exacerbation; Z66 Do not resuscitate; R65.20 Severe sepsis without septic shock; M10.9 Gout, unspecified; I50.9 Heart failure, unspecified; I48.0 Paroxysmal atrial fibrillation; R15.9 Full incontinence of feces; G47.33 Obstructive sleep apnea (adult) (pediatric); N18.3 Chronic kidney disease, stage 3 (moderate); E11.22 Type 2 diabetes mellitus with diabetic chronic kidney disease; E66.01 Morbid (severe) obesity due to excess calories; D50.9 Iron deficiency anemia, unspecified; B96.20 Unspecified Escherichia coli [E. coli] as the cause of diseases classified elsewhere; B96.1 Klebsiella pneumoniae [K. pneumoniae] as the cause of diseases classified elsewhere; Z79.01 Long term (current) use of anticoagulants; Z95.0 Presence of cardiac pacemaker; Z79.84 Long term (current) use of oral hypoglycemic drugs; Z68.33 Body mass index [BMI] 33.0-33.9, adult; Z90.710 Acquired absence of both cervix and uterus; Z90.49 Acquired absence of other specified parts of digestive tract; Z79.899 Other long term (current) drug therapy; Z85.048 Personal history of other malignant neoplasm of rectum, rectosigmoid junction, and anus; Z99.3 Dependence on wheelchair
CPT/HCPCS: 36415; 36416; 51701; 71045; 74018; 80048; 80053; 80202; 81003; 81015; 82274; 82728; 83540; 83550; 83605; 84484; 85025; 85610; 85730; 87040; 87070; 87077; 87086; 87149; 87186; 87205; 87804; 93005; 94640; 94660; 96361; 96365; 96367; A4353; J0696; J1650; J1956; J2916; J3370; J7050; J7620; J7626

== ENCOUNTER 2020-03-30 16:20 | Inpatient (IN) | payer MEDICARE, OTHER ==
--- NOTE | 2020-03-30 17:33 | RAD ---
PORTABLE CHEST ONE VIEW: 03/30/20 at 5:10 p.m. HISTORY: Shortness of breath. Fluid overload. Glomerular saturations at 88%. COMPARISON: 02/07/19. FINDINGS/IMPRESSION: The heart is enlarged. There is a left sided pacemaker device. The aorta is tortuous. There are patch y air space opacities in the lower lung monreal. No pneumothoraces are seen. Small pleural effusions c annot be excluded. POS: [facility]
[2020-03-30 17:34] LABS: #Basophils 0.1 thou/uL (0.0-0.2); #Eosinphils 0.1 thou/uL (0.0-0.7); #Lymphocytes 1.6 thou/uL (1.20-3.40); #Monocytes 1.7 thou/uL (0.11-0.59); #Neutrophils 14.5 thou/uL (1.40-6.50); %Basophils 0.5 % (0.0-1.0); %Eosinophils 0.4 % (0.0-10.0); %Lymphocytes 9.1 % (21.0-51.0); %Monocytes 9.3 % (0.0-10.0); %Neutrophils 80.7 % (42.0-75.0); Hemoglobin 7.5 g/dL (12.0-16.0); Mean Corpuscular HGB CONC 29.4 g/dL (32.0-36.0); Mean Corpuscular Hemoglobin 24.7 pg (27.0-31.0); Mean Corpuscular Volume 84.2 fL (78.0-98.0); Mean Platelet Volume 8.1 fL (7.4-10.4); Platelet Count 903 thou/uL (130-400); RBC Distribution Width 15.7 % (11.5-14.5); Red Blood Cell (RBC) Count 3.03 mill/uL (4.20-5.40)
[2020-03-30 17:49] LABS: ALT (SGPT) 21 U/L (8-55); AST (SGOT) 16 U/L (5-34); Albumin 2.9 g/dL (3.4-4.8); Alkaline Phosphatase 88 U/L (40-110); Anion Gap 15 mmol/L (10-20); BUN (Urea Nitrogen) 63 mg/dL (9.8-20.1); Bilirubin, Total 0.3 mg/dL (0.2-1.2); CK (CPK) 21 U/L (29-168); Calc. Creatinine Clearance 0 mL/min (70-130); Calcium 8.1 mg/dL (7.8-10.44); Carbon Dioxide 27 mmol/L (23-31); Chloride 98 mmol/L (98-107); Estimated GFR-MDRD 38; Glucose 77 mg/dL (83-110); Protein, Total 5.9 g/dL (6.0-8.3); Sodium 135 mmol/L (136-145)
[2020-03-30 17:52] LABS: Anisocytosis SLIGHT = 6-15 cells (100X) (0-5/hpf); Basophilic Stippling SLIGHT = 1-2 cells (100X) (None Seen); Elliptocytes SLIGHT = 2-5 cells (100X) (0-1/hpf); Hypochromia SLIGHT = 6-15 cells (100X) (0-5/hpf); MDiff Complete? YES; Ovalocytes SLIGHT = 2-5 cells (100X) (0-1/hpf); Platelet Morphology Comment Appears Increased; Poikilocytosis MODERATE=16-30 cells (100X) (0-5/hpf); Polychromasia MODERATE = 3-4 cells (100X) (0-2/hpf); Schistocytes SLIGHT = 2-5 cells (100X) (0-1/hpf); Target Cells SLIGHT = 2-5 cells (100X) (0-1/hpf); Tear Drops SLIGHT = 2-5 cells (100X) (0-1/hpf)
[2020-03-30 18:10] LABS: CKMB 2.1 ng/mL (0-6.6)
[2020-03-30] MEDS ORDERED: Aspirin 325 MG TAB ONE (18:39)
[2020-03-30] MEDS ORDERED: Furosemide 40 MG/4 ML VIAL ONE (18:39)
[2020-03-30] MEDS ORDERED: cefTRIAXone\\ROCEPHIN 2 GM VIAL ONE (18:39)
[2020-03-30] MEDS ORDERED: Azithromycin 500 MG VIAL ONE (18:39)
--- NOTE | 2020-03-30 19:20 | PDOC.HHP ---
Hospitalist HPI - History of Present Illness Shortness of breath History of Present Illness: Patient is an 85 year old female with PMH congestive heart failure, diabetes who presents to ED for shortness of breath and worsening pedal edema. Patinet AOx0, altered mental status, discussed with daughter Michelle who reports patient has been admitted several times over last few months for respiratory failure and required BIPAP/intubation previously, she has continued to decline at home. In ED, O2 sat noted at 88% on RA, does not use O2 chronically at home, also 4+ pedal edema present, lab workup significant for leukocytosis, anemia, thromobocythemia, elevated BNP, mildly elevated troponin. CXR significant for patchy infiltrate concerning for pneumonia vs CHF exacerbation. Patient given lasix, ceftriaxone, azithromycin, admitted to hospitalist for further workup. She had a DNR as of last admission, discussed with daughter now since she was previously designated as decision maker, she requests revoke this for now and allowed for rescusitation and intubation if needed. PMH: CHF, gout, rectal cancer, afib, DM, asthma, CAD, CLEMENCIA, CPAP needs. history of brain tumor excised PSH: cardiac ablation pacemaker appy cholecystectomy hysterectomy colostomy w reversal craniotomy FH: uterine cancer mother, daughter. daughter different one w lung cancer social history: denies alcohol/tobacco/drug use DNR ED Course: VITAL SIGNS Sat March 30, 2020 18:30 CIERRA Hunter Jennifer BP: 153/64 Pulse: 71 Resp: 20 O2 sat: 100 on (2L Oxygen) Time: 03/30/2020 18:30. 88% on RA Hospitalist ROS - Review of Systems ROS unobtainable: due to mental status Hospitalist History - Past Medical History Other Medical History: Gout, Past medical history includes cardiac history, congestive heart failure, BRAIN TUMOR removed with sx, Past medical history includes cardiac history, arrhythmia, atrial fibrillation, with pacemaker, Past medical history includes history of diabetes, Type II, Past medical history includes history of hypertension, which has been treated, Past medical history includes history of malignancy, primary site rectal, Past medical history includes history of obesity, Past medical history includes pulmonary disease, asthma. - Past Surgical History Other Surgical History: Pacemaker, cardiac ablation 06/2015, SX FOR BRAIN TUMOR, Surgical history of appendectomy, Surgical history of cholecystectomy, Surgical history of colostomy , with reversal, Surgical history of hysterectomy. - Family History Other Family History: reviewed, no relevant family history - Social History Smoking Status: Never smoker Alcohol: reports: None Drugs: reports: none - Exam General Appearance: NAD, ill appearing General - other findings: altered mental status Eye: PERRL, anicteric sclera ENT: normocephalic atraumatic, no oropharyngeal lesions, moist mucosa Neck: supple, symmetric, no JVD, no thyromegaly, no lymphadenopathy, no carotid bruit Heart: RRR, no murmur, no gallops, no rubs, normal peripheral pulses Respiratory: CTAB, no wheezes, no rales, no ronchi, normal chest expansion, no tachypnea, normal percussion Gastrointestinal: soft, non-tender, non-distended, normal bowel sounds, no palpable masses, no hepatomegaly, no splenomegaly, no bruit Extremities: no cyanosis, no clubbing Extremities - other findings: 3+ pitting edema Skin: no lesions, no rashes Neurological - other findings: altered mental status, unable to appreciate focal deficits on labs Musculoskeletal: normal tone, no muscle wasting Psychiatric - other findings: altered mental status Hospitalist Results - Labs Result Diagrams: 03/30/20 17:12 03/30/20 17:12 Lab results: WBC 18.0 thou/uL (4.8-10.8) H 03/30/20 17:12 Hgb 7.5 g/dL (12.0-16.0) L 03/30/20 17:12 Hct 25.6 % (36.0-47.0) L 03/30/20 17:12 MCV 84.2 fL (78.0-98.0) 03/30/20 17:12 Plt Count 903 thou/uL (130-400) H* 03/30/20 17:12 Neutrophils % 80.7 % (42.0-75.0) H 03/30/20 17:12 Sodium 135 mmol/L (136-145) L 03/30/20 17:12 Potassium 5.0 mmol/L (3.5-5.1) 03/30/20 17:12 Chloride 98 mmol/L (98-107) 03/30/20 17:12 Carbon Dioxide 27 mmol/L (23-31) 03/30/20 17:12 BUN 63 mg/dL (9.8-20.1) H 03/30/20 17:12 Creatinine 1.34 mg/dL (0.6-1.1) H 03/30/20 17:12 Glucose 77 mg/dL (83-110) L 03/30/20 17:12 Calcium 8.1 mg/dL (7.8-10.44) 03/30/20 17:12 Total Bilirubin 0.3 mg/dL (0.2-1.2) 03/30/20 17:12 AST 16 U/L (5-34) 03/30/20 17:12 ALT 21 U/L (8-55) 03/30/20 17:12 Alkaline Phosphatase 88 U/L (40-110) 03/30/20 17:12 Creatine Kinase 21 U/L (29-168) L 03/30/20 17:12 CK-MB (CK-2) 2.1 ng/mL (0-6.6) 03/30/20 17:12 Troponin I 0.039 ng/mL (< 0.028) H 03/30/20 17:12 B-Natriuretic Peptide 997.9 pg/mL (0-100) H 03/30/20 17:12 Serum Total Protein 5.9 g/dL (6.0-8.3) L 03/30/20 17:12 Albumin 2.9 g/dL (3.4-4.8) L 03/30/20 17:12 Additional comment: Films of the chest show Other findings: FINDINGS/IMPRESSION: The heart is enlarged. There is a left sided pacemaker device. The aorta is tortuous. There are patchy air space opacities in the lower lung monreal. No pneumothoraces are seen. Small pleural effusions cannot be excluded. - EKG Interpretation EKG: Vpaced, 77bpm, no ST changes of acuity Hospitalist H&P A/P - Plan Plan: Patient is an 85 year old female with PMH congestive heart failure, diabetes who presents to ED for shortness of breath and worsening pedal edema. # acute hypoxic and hypercapneic respiratory failure - ddx including CHF, pneumonia, covid amongst other causes - admit to icu, continue IV lasix and I/Os - continue azithromycin and ceftriaxone - follow up covid screen - on BIPAP due to respiratorty acidosis and hypoxic failure, recheck ABG, may need intubation if not improving. # acute and chronic CHF - systolic by last echo which was some time ago (2014) - last echo 2014 w mitrial, tricuspid regurgitation, biatrial enlargement, afib w/ RVR, EF 40-50%, will order new echo now - continue IV diuresis - recheck echo - trend troponin # DM type 2 - continue glipizide, SSI, diabetic diet once tolerating PO # HTN - PRN medications in chart # afib w/ rate control - continue coumadin and metoprolol # CAD and elevated troponin - trend troponin and diurese, continue ASA # sepsis due to pneumonia - treat pneumonia and chf as above # thrombocythemia - likely reactive, trend CBC code status: discussed with daughter, full code admit to ICU on BIPAP or intubate depending on ABG recheck
[2020-03-30 20:32] LABS: Analyzer IN Cardio ER; Base Excess (BEa) -1.2 mEq/L (-2.0 to +3.0); Calcium, Ionized 1.14 mmol/L (1.12-1.30); Carboxyhemoglobin (COHb) 1.1 gm% (0.0-3.0); Hemoglobin (Hb) 7.9 g/dL (12.0-16.0); O2 Tension (PaO2), arterial 133.3 mmHg (> 60.0); Potassium - ABG Lab 4.93 mmol/L (3.70-5.30)
[2020-03-30] MEDS ORDERED: Promethazine HCl 12.5 MG in Sodium Chloride 0.9% 50 ML IVPB PRN (20:33)
[2020-03-30] MEDS ORDERED: hydrALAZINE 20 MG/ML VIAL SLOW IVP PRN (20:33)
[2020-03-30] MEDS ORDERED: Ondansetron PF 4 MG/2 ML Vial IVP PRN (20:33)
[2020-03-30] MEDS ORDERED: Labetalol HCl 100 MG/20 ML VIAL SLOW IVP PRN (20:33)
[2020-03-30] MEDS ORDERED: cloNIDine 0.1 MG TAB PO PRN (20:33)
[2020-03-30 20:36] LABS: ALV-art Gradient -34.035 (0-20); CO2 Tension 80.3 mmHg (35.0-45.0); Puncture Site RRA; pH, Arterial 7.16 (7.35-7.45)
[2020-03-30] MEDS ORDERED: Senokot S 8.6-50 MG TAB PO PRN (20:38)
[2020-03-30] MEDS ORDERED: Bisacodyl 5 MG TAB PO PRN (20:38)
[2020-03-30] MEDS ORDERED: Dextrose 50% Abboject 50 ML SYRINGE SLOW IVP PRN (20:38)
[2020-03-30] MEDS ORDERED: Dextrose 5% in Water 1,000 ML IV PRN (20:38)
[2020-03-30] MEDS ORDERED: Acetaminophen 650 MG Suppository PR PRN (20:38)
[2020-03-30] MEDS ORDERED: Guaifenesin DM 100-10/5 ML UDCUP PO PRN (20:38)
[2020-03-30] MEDS ORDERED: HYDROcodone/Acetaminophen 5/325 mg Tablet PO PRN (20:38)
[2020-03-30] MEDS ORDERED: Acetaminophen 325 MG TAB PO PRN (20:38)
[2020-03-30] MEDS ORDERED: Hydrocortisone Sod Succ/PF 100 mg/2 ml Vial IVP SCH (20:42)
[2020-03-30 20:53] LABS: Troponin I 0.031 ng/mL (< 0.028)
[2020-03-30 20:58] LABS: INR-International Normal Ratio 2.8; Prothrombin Time 29.3 SEC (12.0-14.7)
[2020-03-30 21:17] LABS: Troponin I 0.046 ng/mL (< 0.028)
[2020-03-30 21:58] LABS: Actual Bicarbonate (HCO3a) 28.1 mEq/L (22-28); Analyzer IN Cardio ER; Calcium, Ionized 1.13 mmol/L (1.12-1.30); Carboxyhemoglobin (COHb) 0.6 gm% (0.0-3.0); O2 Tension (PaO2), arterial 128.5 mmHg (> 60.0); Potassium - ABG Lab 4.74 mmol/L (3.70-5.30)
[2020-03-30] MEDS ORDERED: Rocuronium Bromide 10 MG/ML (10ML VIAL) ONE (22:08)
[2020-03-30] MEDS ORDERED: fentaNYL Citrate/PF 2,000 MCG in Sodium Chloride 0.9% 60 ML IV SCH (22:29)
[2020-03-30 22:56] LABS: Bilirubin Negative (Negative); Blood, Urine 1+ (Negative); Clarity Turbid (Clear); Glucose, Urine (Dipstick) Normal (Negative); Leukocyte 500 Leu/uL (Negative); Nitrite Negative (Negative); Protein, Urine (Dipstick) 30 mg/dL (Neg-Trace); RBC/HPF 0-3 HPF (0-3); Squamous Epithelial 0-3 HPF (0-3); Urobilinogen Normal mg/dL (Less than 2); WBC/HPF Greater than 50 HPF (0-3)
[2020-03-30 22:57] LABS: Bacteria/HPF 4+ HPF (None Seen)
--- NOTE | 2020-03-30 23:15 | RAD ---
XR Chest 1 View Portable HISTORY: Respiratory failure COMPARISON: Earlier exam of same date FINDINGS: There is been interval placement of an endotracheal tube with tip just below the level of t he clavicular heads. Nasogastric tube can be traced into the stomach. The patient is rotated. No pneumothoraces are seen. The heart size is enlarged. The aorta is tortuous. There are bilateral pleur al effusions with bibasilar infiltrates/atelectatic changes.
[2020-03-30] MEDS ORDERED: Fentanyl BOLUS 250 ML IVPB PRN (23:56)
[2020-03-30] MEDS ORDERED: Propofol BOLUS 1,000 MG/100 ML VIAL IV PRN (23:56)
[2020-03-30] MEDS ORDERED: DISCONTINUE PREVIOUS NARCOTIC PAIN MEDICATIONS AND BENZODIAZEPINES FS SCH (23:56)
[2020-03-30] MEDS ORDERED: Morphine 2 MG/ML SYRINGE SLOW IVP PRN (23:56)
[2020-03-30] MEDS ORDERED: Lorazepam 2 MG/ML VIAL SLOW IVP PRN (23:56)
[2020-03-31 00:10] LABS: Anion Gap 16 mmol/L (10-20); BUN (Urea Nitrogen) 61 mg/dL (9.8-20.1); Calc. Creatinine Clearance 0 mL/min (70-130); Calcium 7.9 mg/dL (7.8-10.44); Carbon Dioxide 22 mmol/L (23-31); Chloride 99 mmol/L (98-107); Estimated GFR-MDRD 38; Glucose 73 mg/dL (83-110); Potassium 5.2 mmol/L (3.5-5.1); Sodium 132 mmol/L (136-145)
[2020-03-31 00:12] LABS: Lactic Acid 1.6 mmol/L (0.5-2.2)
[2020-03-31 00:22] LABS: Troponin I 0.025 ng/mL (< 0.028)
[2020-03-31] MEDS: Famotidine 20 MG TAB PO SCH ×3 (00:41→21:24)
[2020-03-31] MEDS: Propofol 1,000 MG/100 ML VIAL IV PRN ×3 (00:42→16:57)
[2020-03-31 04:25] LABS: #Lymphocytes 0.9 thou/uL (1.20-3.40); #Monocytes 0.6 thou/uL (0.11-0.59); %Basophils 0.3 % (0.0-1.0); %Eosinophils 0.2 % (0.0-10.0); %Lymphocytes 6.4 % (21.0-51.0); %Monocytes 4.2 % (0.0-10.0); %Neutrophils 88.9 % (42.0-75.0); Hemoglobin 7.3 g/dL (12.0-16.0); Mean Corpuscular HGB CONC 29.4 g/dL (32.0-36.0); Mean Corpuscular Hemoglobin 24.6 pg (27.0-31.0); Mean Corpuscular Volume 83.5 fL (78.0-98.0); Mean Platelet Volume 8.6 fL (7.4-10.4); Platelet Count 768 thou/uL (130-400); RBC Distribution Width 15.9 % (11.5-14.5); Red Blood Cell (RBC) Count 2.99 mill/uL (4.20-5.40); White Blood Cell (WBC) Count 14.7 thou/uL (4.8-10.8)
[2020-03-31 04:28] LABS: INR-International Normal Ratio 3.4
[2020-03-31 04:40] LABS: Anion Gap 18 mmol/L (10-20); BUN (Urea Nitrogen) 60 mg/dL (9.8-20.1); Calc. Creatinine Clearance 68 mL/min (70-130); Calcium 7.5 mg/dL (7.8-10.44); Carbon Dioxide 23 mmol/L (23-31); Chloride 101 mmol/L (98-107); Estimated GFR-MDRD 44; Magnesium 1.8 mg/dL (1.6-2.6); Potassium 4.7 mmol/L (3.5-5.1); Sodium 137 mmol/L (136-145)
[2020-03-31 04:44] LABS: Troponin I 0.049 ng/mL (< 0.028)
[2020-03-31 04:52] LABS: Glucose 53 mg/dL (83-110)
[2020-03-31] MEDS ORDERED: Dextrose 50% Abboject 50 ML SYRINGE ONE (05:00)
[2020-03-31] MEDS: Hydrocortisone Sod Succ/PF 100 mg/2 ml Vial IVP SCH ×3 (05:14→21:24)
[2020-03-31] MEDS: Furosemide 100 MG/10 ML VIAL SLOW IVP SCH ×2 (05:14→14:35)
[2020-03-31 06:55] LABS: Actual Bicarbonate (HCO3a) 21.5 mEq/L (22-28); Base Excess (BEa) -0.2 mEq/L (-2.0 to +3.0); Calcium, Ionized 1.05 mmol/L (1.12-1.30); Carboxyhemoglobin (COHb) 0.7 gm% (0.0-3.0); Hemoglobin (Hb) 7.5 g/dL (12.0-16.0); O2 Tension (PaO2), arterial 125.7 mmHg (> 60.0); Potassium - ABG Lab 3.99 mmol/L (3.70-5.30)
[2020-03-31 06:58] LABS: CO2 Tension 24.5 mmHg (35.0-45.0); Puncture Site RRAD; pH, Arterial 7.56 (7.35-7.45)
[2020-03-31 06:59] LABS: ALV-art Gradient 128.875 (0-20)
[2020-03-31 07:10] LABS: CO2 Tension 78.5 mmHg (35.0-45.0); pH, Arterial 7.17 (7.35-7.45)
--- NOTE | 2020-03-31 07:43 | PDOC.HOSPP ---
- Subjective Encounter Date: 03/31/20 (f/u resp failure) Encounter Time: 07:42 Subjective: Pt in the ICU intubated and sedated with propofol and fentanyl. no events since admission, has produced about 800 ml urine since arrival here. - Objective Vital Signs & Weight: Vital Signs (12 hours) Temp Pulse Resp BP Pulse Ox 03/31/20 07:19 70 03/31/20 06:00 96.5 F L 20 03/31/20 05:18 70 03/31/20 04:00 20 03/31/20 02:23 100 03/31/20 02:00 20 03/31/20 00:50 70 89/56 L 03/31/20 00:05 96.1 F L 03/31/20 00:00 20 Weight Weight 272 lb 11.389 oz Most Recent Monitor Data Heart Rate from ECG 71 NIBP 121/60 NIBP BP-Mean 80 Respiration from ECG 20 SpO2 100 I&O: 03/30/20 03/31/20 04/01/20 06:59 06:59 06:59 Output Total 880 Balance -880 Result Diagrams: 03/31/20 04:00 03/31/20 04:00 EKG Reviewed by me: Yes (tele - paced rhythm 70) Hospitalist ROS - Medication Medications: Active Medications Generic Name Dose Route Start Last Admin Trade Name Freq PRN Reason Stop Dose Admin Famotidine 20 mg 03/30/20 21:00 03/31/20 00:41 Pepcid PO 20 mg BID HAILEY Administration Furosemide 80 mg 03/31/20 06:00 03/31/20 05:14 Lasix SLOW IVP 80 mg 0600,1400 HAILEY Administration Hydrocortisone Sodium Succinate 50 mg 03/31/20 06:00 03/31/20 05:14 Solu-Cortef IVP 50 mg Q8HR HAILEY Administration Propofol 1,000 mg 03/30/20 23:56 03/31/20 00:42 Diprivan IV 04/29/20 23:56 1,000 mg INF PRN Administration TO ACHIEVE GOAL RASS Protocol - Exam General Appearance: NAD General - other findings: intubated, sedated Heart: RRR, no murmur Respiratory: no wheezes, no rales Respiratory - other findings: good air movement Gastrointestinal: soft, non-tender, non-distended, normal bowel sounds Extremities - other findings: right great toe open wound Musculoskeletal - other findings: unable to assess Psychiatric - other findings: unable to assess Hosp A/P (1) Acute respiratory failure with hypoxia and hypercarbia Code(s): J96.01 - ACUTE RESPIRATORY FAILURE WITH HYPOXIA; J96.02 - ACUTE RESPIRATORY FAILURE WITH HYPERCAPNIA Status: Acute (2) Acute on chronic heart failure Code(s): I50.9 - HEART FAILURE, UNSPECIFIED Status: Acute Qualifiers: Heart failure type: unspecified Qualified Code(s): I50.9 - Heart failure, unspecified (3) Pneumonia Code(s): J18.9 - PNEUMONIA, UNSPECIFIED ORGANISM Status: Acute Qualifiers: Laterality: bilateral Lung location: lower lobe of lung (4) Hypoglycemia Code(s): E16.2 - HYPOGLYCEMIA, UNSPECIFIED Status: Acute (5) Anemia Code(s): D64.9 - ANEMIA, UNSPECIFIED Status: Acute Qualifiers: Anemia type: unspecified type Qualified Code(s): D64.9 - Anemia, unspecified (6) Open toe wound Code(s): S91.109A - UNSP OPEN WOUND OF UNSP TOE(S) W/O DAMAGE TO NAIL, INIT Status: Acute Qualifiers: Encounter type: subsequent encounter Qualified Code(s): S91.109D - Unspecified open wound of unspecified toe(s) without damage to nail, subsequent encounter (7) Supratherapeutic INR Code(s): R79.1 - ABNORMAL COAGULATION PROFILE Status: Resolved - Plan Acute resp failure - Pulmonology consult - Intubated - alkalotic earlier and RT adjusting vent - continue antibiotics Heart failure - acute on chronic - continue IV lasix diuresis - echo ordered Hypoglycemia - change to q2h glucose. If this persists, may require low rate D10 gtt Anemia - severe - type and screen ordered, defer to Pulmonology on threshold for transfusion Supratherapeutic INR with home use of coumadin per chart review - allow this to trend down, no signs of bleeding Right great toe wound - wound care by nursing staff and antibiotics dvt prophy - on coumadin with INR 3.4 GI prophy - famotidine through OG tube code status Full and surrogate decision maker is the patient's daughter per H&P Pt in critical condition and at high risk of in-hospital decompensation
[2020-03-31] MEDS ORDERED: Prevnar 13-Val Conj/PF 0.5 ML SYRINGE IM ONE (09:00)
[2020-03-31 09:18] LABS: Troponin I 0.032 ng/mL (< 0.028)
[2020-03-31] MEDS: Polyethylene Glycol 3350 17 GM Packet PO SCH (10:07)
--- NOTE | 2020-03-31 10:43 | PDOC.EVN ---
Event Note - Event Note Event Note: Called by RN for blood sugar 61, requiring another amp of D50 - will order D10 low rate with goal blood sugar >80.
[2020-03-31] MEDS: Dextrose 10% in Water 1,000 ML IV SCH (10:47)
[2020-03-31 11:57] LABS: SARS-CoV-2 MS2 Positive; SARS-CoV-2 N Gene Negative; SARS-CoV-2 S Gene Negative; SARS-CoV-2 orf1ab Negative
[2020-03-31] MEDS: Azithromycin 500 MG in Sodium Chloride 0.9% 250 ML 250 ML IVPB SCH (21:22)
[2020-03-31] MEDS: cefTRIAXone\\ROCEPHIN 1 GM in Sodium Chloride 0.9% 100 ML IVPB SCH (21:23)
--- NOTE | 2020-03-31 21:32 | CON ---
DATE OF CONSULTATION: 03/31/2020 HISTORY OF PRESENT ILLNESS: Ms. Rico is an 85-year-old female with history of cardiomyopathy and frequent hospitalizations. She was admitted with respiratory distress, intubated, and is mechanically ventilated. PAST MEDICAL HISTORY: Remarkable for cardiomyopathy. She was in the hospital in January with sepsis secondary to Streptococcus. She also had a urinary tract infection and influenza. Past medical history is also remarkable for, 1. Asthma. 2. History of chronic constipation. 3. History of anticoagulation. 4. Hypertension. 5. Sleep apnea with CPAP. 6. Morbid obesity. 7. History of atrial fibrillation. 8. Diabetes. 9. Chronic anemia. 10. History of gout. 11. History of rectal cancer that was surgically treated. 12. History of cardiac ablation with pacemaker. 13. History of colostomy reversal. 14. History of brain tumor that was benign which lead to craniotomy. FAMILY HISTORY: Positive for cancer. SOCIAL HISTORY: She is a nonsmoker and nondrinker. ADVANCE DIRECTIVE: Last admission, she was a DNR. Apparently, the daughter changed her mind about this when she came in this time. PHYSICAL EXAMINATION: VITAL SIGNS: She is afebrile. Heart rate is in the 70s, blood pressure 102/54, respiratory rate is in the teens. HEAD AND NECK: Unremarkable. LUNGS: Distant, clear. HEART: Regular rhythm. ABDOMEN: Soft. EXTREMITIES: No clubbing, cyanosis, or edema. LABORATORY AND IMAGING DATA: Chest x-ray shows finding suggestive of pulmonary edema with cardiomegaly. White count is 14.7, hemoglobin 7.3, platelets 768. Platelets were 903,000 yesterday. Sodium 137, potassium 4.7, chloride 101, bicarb 23, BUN 60, creatinine 1.18. pH 7.56, pCO2 24, pO2 125. COVID screen is negative. IMPRESSION: 1. Respiratory failure. 2. Acute heart failure. 3. Do not resuscitate status revoked, now mechanically ventilated. 4. Possible coexistent pneumonia. 5. Anticoagulation. PROGNOSIS: Quite guarded. Critical care time 30 min. Job ID: [id number] MTDD
[2020-04-01 04:28] LABS: #Lymphocytes 0.8 thou/uL (1.20-3.40); #Monocytes 1.3 thou/uL (0.11-0.59); #Neutrophils 14.7 thou/uL (1.40-6.50); %Basophils 0.1 % (0.0-1.0); %Eosinophils 0.1 % (0.0-10.0); %Lymphocytes 4.6 % (21.0-51.0); %Monocytes 7.5 % (0.0-10.0); %Neutrophils 87.7 % (42.0-75.0); Hemoglobin 6.4 g/dL (12.0-16.0); Mean Corpuscular HGB CONC 28.4 g/dL (32.0-36.0); Mean Corpuscular Hemoglobin 23.5 pg (27.0-31.0); Mean Corpuscular Volume 82.6 fL (78.0-98.0); Mean Platelet Volume 8.4 fL (7.4-10.4); Platelet Count 713 thou/uL (130-400); RBC Distribution Width 16.2 % (11.5-14.5); Red Blood Cell (RBC) Count 2.73 mill/uL (4.20-5.40); White Blood Cell (WBC) Count 16.7 thou/uL (4.8-10.8)
[2020-04-01 04:40] LABS: INR-International Normal Ratio 2.6; Prothrombin Time 27.8 SEC (12.0-14.7)
[2020-04-01 04:46] LABS: Anion Gap 14 mmol/L (10-20); BUN (Urea Nitrogen) 60 mg/dL (9.8-20.1); Calc. Creatinine Clearance 56 mL/min (70-130); Carbon Dioxide 26 mmol/L (23-31); Chloride 99 mmol/L (98-107); Estimated GFR-MDRD 35; Glucose 88 mg/dL (83-110); Magnesium 1.9 mg/dL (1.6-2.6); Potassium 4.2 mmol/L (3.5-5.1); Sodium 135 mmol/L (136-145)
[2020-04-01] MEDS: Hydrocortisone Sod Succ/PF 100 mg/2 ml Vial IVP SCH (05:24)
[2020-04-01] MEDS: Furosemide 100 MG/10 ML VIAL SLOW IVP SCH ×2 (05:24→14:18)
--- NOTE | 2020-04-01 07:17 | PDOC.HOSPP ---
- Subjective Encounter Date: 04/01/20 (f/u respiratory failure) Encounter Time: 07:14 Subjective: No overnight events, off sedation this morning and following commands. Remains intubated - Objective Vital Signs & Weight: Vital Signs (12 hours) Temp Pulse Resp BP Pulse Ox 04/01/20 05:56 12 04/01/20 05:00 97.8 F 04/01/20 04:00 12 04/01/20 02:42 70 94/48 L 04/01/20 02:00 12 04/01/20 00:00 97.3 F L 12 03/31/20 22:41 70 105/70 03/31/20 22:00 12 03/31/20 20:00 12 03/31/20 19:49 100 03/31/20 19:15 70 68/44 L Weight Weight 272 lb 11.389 oz Most Recent Monitor Data Heart Rate from ECG 70 NIBP 144/65 NIBP BP-Mean 91 Respiration from ECG 13 SpO2 100 I&O: 03/31/20 04/01/20 04/02/20 06:59 06:59 06:59 Intake Total 1088 Output Total 880 2430 30 Balance -880 -1342 -30 Result Diagrams: 04/01/20 04:16 04/01/20 04:16 Additional Labs: Accuchecks 04/01/20 04/01/20 03/31/20 06:09 01:20 22:57 POC Glucose 111 H 89 90 03/31/20 03/31/20 03/31/20 21:16 18:24 16:32 POC Glucose 100 123 H 113 H 03/31/20 03/31/20 03/31/20 14:18 12:28 10:30 POC Glucose 103 94 61 L 03/31/20 07:41 POC Glucose 188 H EKG Reviewed by me: Yes (tele - paced rhythm) Hospitalist ROS - Medication Medications: Active Medications Generic Name Dose Route Start Last Admin Trade Name Freq PRN Reason Stop Dose Admin Dextrose/Water 25 gm 03/30/20 20:38 03/31/20 10:46 Dextrose 50% SLOW IVP 25 gm PRN PRN Administration Hypoglycemia Famotidine 20 mg 03/30/20 21:00 03/31/20 21:24 Pepcid PO 20 mg BID HAILEY Administration Furosemide 80 mg 03/31/20 06:00 04/01/20 05:24 Lasix SLOW IVP 80 mg 0600,1400 HAILEY Administration Hydrocortisone Sodium Succinate 50 mg 03/31/20 06:00 04/01/20 05:24 Solu-Cortef IVP 50 mg Q8HR HAILEY Administration Azithromycin 500 mg/ Sodium 250 mls @ 250 mls/hr 03/31/20 20:00 03/31/20 21: 22 Chloride IVPB 04/04/20 20:01 250 mls Q24HR HAILEY Administration Ceftriaxone Sodium 1 gm/ 100 mls @ 200 mls/hr 03/31/20 21:00 03/31/20 21:23 Sodium Chloride IVPB 04/03/20 21:29 100 mls Q24HR HAILEY Administration Dextrose/Water 1,000 mls @ 30 mls/hr 03/31/20 10:45 03/31/20 10:47 Dextrose 10% In Water IV 1,000 mls .Q24H HAILEY Administration Polyethylene Glycol 17 gm 03/31/20 09:00 03/31/20 10:07 Miralax PO 17 gm DAILY HAILEY Administration Propofol 1,000 mg 03/30/20 23:56 03/31/20 16:57 Diprivan IV 04/29/20 23:56 1,000 mg INF PRN Administration TO ACHIEVE GOAL RASS Protocol - Exam General Appearance: NAD General - other findings: intubated, able to respond yes/no Heart: RRR, no murmur Respiratory: no wheezes, no rales, no ronchi Gastrointestinal: soft, non-tender, non-distended, normal bowel sounds Extremities - other findings: 3+ LE pitting edema Psychiatric - other findings: following commands Hosp A/P (1) Acute respiratory failure with hypoxia and hypercarbia Code(s): J96.01 - ACUTE RESPIRATORY FAILURE WITH HYPOXIA; J96.02 - ACUTE RESPIRATORY FAILURE WITH HYPERCAPNIA Status: Acute (2) Acute on chronic heart failure Code(s): I50.9 - HEART FAILURE, UNSPECIFIED Status: Acute Qualifiers: Heart failure type: unspecified Qualified Code(s): I50.9 - Heart failure, unspecified (3) Pneumonia Code(s): J18.9 - PNEUMONIA, UNSPECIFIED ORGANISM Status: Acute Qualifiers: Laterality: bilateral Lung location: lower lobe of lung (4) Hypoglycemia Code(s): E16.2 - HYPOGLYCEMIA, UNSPECIFIED Status: Resolved (5) Anemia Code(s): D64.9 - ANEMIA, UNSPECIFIED Status: Acute Qualifiers: Anemia type: unspecified type Qualified Code(s): D64.9 - Anemia, unspecified (6) Open toe wound Code(s): S91.109A - UNSP OPEN WOUND OF UNSP TOE(S) W/O DAMAGE TO NAIL, INIT Status: Acute Qualifiers: Encounter type: subsequent encounter Qualified Code(s): S91.109D - Unspecified open wound of unspecified toe(s) without damage to nail, subsequent encounter (7) Supratherapeutic INR Code(s): R79.1 - ABNORMAL COAGULATION PROFILE Status: Resolved (8) LAKEISHA (acute kidney injury) Code(s): N17.9 - ACUTE KIDNEY FAILURE, UNSPECIFIED Status: Acute - Plan Acute resp failure - Pulmonology consult - appreciate management - Intubated and alert, anticipate extubation soon - continue antibiotics - COVID negative Heart failure - acute on chronic - continue IV lasix diuresis - echo ordered Hypoglycemia - on D10 - adjust/lower/discontinue if blood sugars are stablized. Anemia - severe - now 6.4 - will order 1 unit of PRBC LAKEISHA - likely secondary to worsening anemia and diuresis - transfuse/monitor. Pt continues to have significant peripheral edema. Supratherapeutic INR resolved - INR today now 2.6 Hold on further warfarin for now given anemia. As no signs of brisk/active bleeding - no indication to reverse Right great toe wound - wound care consult dvt prophy - on coumadin with INR 2.6 GI prophy - famotidine code status Full and surrogate decision maker is the patient's daughter per H&P Pt remains at high risk in current condition
[2020-04-01] MEDS ORDERED: methylPREDNISolone Sod Succ/PF 125 MG/2 ML VIAL IVP SCH (08:19)
[2020-04-01] MEDS: Propofol 1,000 MG/100 ML VIAL IV PRN ×2 (08:25→17:08)
--- NOTE | 2020-04-01 08:25 | RAD ---
Chest one view HISTORY: Dyspnea. CHF. COMPARISON: 03/30/2020. FINDINGS: Cardiac silhouette is magnified and enlarged. Pulmonary vasculature is slightly more engorg ed than on the prior study. Ill-defined patchy infiltrates at each lower lobe. Blunting of the costophrenic angles unchanged. Patient is slightly rotated leftward. Calcification within the aorta. Lines and tubes are unchanged in position. IMPRESSION : Slight interval radiographic progression of pulmonary vascular congestion associated with CHF. Atherosclerosis.
[2020-04-01] MEDS ORDERED: methylPREDNISolone Sod Succ 40 MG VIAL IVP SCH (08:30)
[2020-04-01] MEDS: Famotidine 20 MG TAB PO SCH (08:31)
[2020-04-01] MEDS: Polyethylene Glycol 3350 17 GM Packet PO SCH (08:31)
--- NOTE | 2020-04-01 10:56 | PRG ---
DATE OF SERVICE: 04/01/2020 SUBJECTIVE: Ms. Rico awakens and follows commands. She did not pass a leak test this morning. OBJECTIVE: VITAL SIGNS: Respiratory rate is in the teens, heart rate in 70s, blood pressure 157/68. LUNGS: Clear. HEART: Regular rhythm. ABDOMEN: Soft. LABORATORY DATA: Chest radiograph suggestive of a right effusion. Her hemoglobin fell to 6.4, so she is receiving a unit of packed cells; platelets are 713; white count 16.7. Electrolytes were essentially normal. Creatinine is 1.43. No blood gas today. IMPRESSION: 1. Respiratory failure associated with congestive heart failure. 2. Chest radiograph suggestive of a right-sided effusion. I think she is approaching an euvolemic state. PLAN: We will continue with mechanical ventilation. We started steroids. We will reassess her for extubation in the morning. CRITICAL CARE TIME: 30 minutes. Job ID: [id number]
[2020-04-01] MEDS: methylPREDNISolone Sod Succ 40 MG VIAL IVP SCH ×2 (12:08→17:50)
--- NOTE | 2020-04-01 12:50 | PDOC.PALCO ---
Palliative Care Consult - Consult Details Requesting Physician: Dr Moya (Dr Canela on for hospitalist group) Reason for Consult: goals of care, advance directives assistance, family support - Pertinent HPI 85 year old female with known history of congestive heart failure, diabetes who, as per daughter and history, has been admitted several times in the past few months for exacerbation of CHF. Admissions have required bipap/intubation. She lives at home, O2 use but not dependent. Noted to have increase in edema and shortness of breath, presented to emergency room and had an altered mental status. Previous admission she had a DNAR, however daughter who is decision maker decided to revoke for now and allow for resuscitation and intubation. Ms Rico was intubated and admitted to CCU for CHF exacerbation verses pneumonia , elevated BNP, anemia. It was attempted to wean today, but not successful. Pulmonology will attempt again tomorrow. - Pertinent PMH CHF, gout, rectal cancer, afib, DM, asthma, CAD, CLEMENCIA, - Social History Smoking Status: Never smoker Smoking: no tobacco exposure Alcohol Use: none Drug Use History: none Living Situation: independent - Medications MAR Reviewed: Yes - Allergies Allergies/Adverse Reactions: Allergies Allergy/AdvReac Type Severity Reaction Status Date / Time No Known Allergies Allergy Verified 08/08/18 23:15 - Subjective Mechanical intubation, sedated - ROS Non Response: due to endotracheal tube, due to mental status - Objective Vital Signs: Vital Signs - Most Recent Temp Pulse Resp BP Pulse Ox 98.8 F 70 15 117/62 100 04/01/20 07:52 04/01/20 11:04 04/01/20 12:00 04/01/20 11:04 04/01/20 08:00 Palliative Performance Scale: 30 - Physical Exam Constitutional: ill appearing HEENT: EOMI, moist MMs, sclera anicteric Respiratory: no wheezing Deviation from normal: mechanical ventilatoin, Cardiovascular: RRR Gastrointestinal: soft, non-tender, incontinent Genitourinary: mast catheter Musculoskeletal: edema present Skin: cap refill <2 seconds, fragile, friable Deviation from normal: wound to right great toe Deviation from normal: sedated at time of assessment - Problem List (1) Palliative care encounter Code(s): Z51.5 - ENCOUNTER FOR PALLIATIVE CARE Current Visit: Yes Status: Acute (2) Acute on chronic heart failure Code(s): I50.9 - HEART FAILURE, UNSPECIFIED Current Visit: Yes Status: Acute Qualifiers: Heart failure type: unspecified Qualified Code(s): I50.9 - Heart failure, unspecified (3) Anemia Code(s): D64.9 - ANEMIA, UNSPECIFIED Current Visit: Yes Status: Acute Qualifiers: Anemia type: unspecified type Qualified Code(s): D64.9 - Anemia, unspecified (4) Acute renal failure superimposed on stage 3 chronic kidney disease Code(s): N17.9 - ACUTE KIDNEY FAILURE, UNSPECIFIED; N18.3 - CHRONIC KIDNEY DISEASE, STAGE 3 (MODERATE) Current Visit: No Status: Acute (5) Acute respiratory failure with hypoxia Code(s): J96.01 - ACUTE RESPIRATORY FAILURE WITH HYPOXIA Current Visit: No Status: Acute (6) Physical deconditioning Code(s): R53.81 - OTHER MALAISE Current Visit: No Status: Acute (7) Obesity (BMI 30-39.9) Code(s): E66.9 - OBESITY, UNSPECIFIED Current Visit: No Status: Chronic - Plan/Recommendations Plan: Records reviewed, Palliative care to communicate with daughter and offer emotional support. *Will revisit patient tomorrow after hopeful extubation to readdress her advance directives, resuscitation status when she is decisional. *No BM noted, added ID PRN Docusate *Please also refer to Julianna Nina RNmma fighter notes in note section [50] minutes spent on this encounter with >50% of the time in counseling and coordination of care. Thank you for this very appropriate consult.
[2020-04-01] MEDS ORDERED: Bisacodyl 10 MG SUPP PR PRN (13:06)
--- NOTE | 2020-04-01 15:07 | RAD ---
RIGHT FOOT THREE VIEWS: History: First toe infection. Evaluate for osteomyelitis. FINDINGS: There is diffuse bone demineralization. Extensive soft tissue swelling without definite subcutaneous emphysema. There is erosion involving the proximal medial aspect of the proximal phalanx of the first digit. The possibility of osteomyelitis cannot be excluded. Questionable erosion involving the proxi mal aspect of the proximal phalanx of the second digit. There is degenerative change in the first met atarsal phalangeal joint space. Definite fracture is not appreciated. Lisfranc alignment appears to be maintained. There appears to be degenerative change at the talonavicular joint space. Hypertrophy of the calcanea l at the plantar aponeurosis insertion site as well as at the Achilles tendon insertion site. IMPRESSION: 1. Soft tissue swelling. Correlate for cellulitis. 2. Erosion change around the first and second digit. Osteomyelitis cannot be excluded. 3. Additional findings as above. 4. Diffuse bone demineralization. POS: PPP
[2020-04-01] MEDS: Dextrose 10% in Water 1,000 ML IV SCH (17:34)
[2020-04-01] MEDS: Azithromycin 500 MG in Sodium Chloride 0.9% 250 ML 250 ML IVPB SCH (20:55)
[2020-04-01] MEDS: cefTRIAXone\\ROCEPHIN 1 GM in Sodium Chloride 0.9% 100 ML IVPB SCH (21:08)
[2020-04-02] MEDS: methylPREDNISolone Sod Succ 40 MG VIAL IVP SCH ×4 (00:14→17:47)
[2020-04-02] MEDS: Propofol 1,000 MG/100 ML VIAL IV PRN (00:25)
--- NOTE | 2020-04-02 01:26 | CON ---
DATE OF CONSULTATION: 04/01/2020 INDICATION FOR CONSULTATION: An 85-year-old female with CHF exacerbation. HISTORY OF PRESENT ILLNESS: This very unfortunate 85-year-old female, who is a patient of Dr. Razo, last seen in the office around 2018 it appears. She has had multiple hospitalizations for COPD and CHF exacerbations. She has a history of cardiomyopathy, which appears to be at least by echocardiogram in 2017, stage III diastolic dysfunction. Ejection fraction systolic is 55% to 60% according to the echocardiogram in 2017. She also had increased right ventricular systolic pressures with [id number] mitral and tricuspid valve regurgitation. A repeat echocardiogram has been requested, but has not yet been performed. We will re-submit this or call the aggregate conveyor operator for further evaluation. At this time, she came again due to lower extremity edema and CHF exacerbation, was admitted to the hospital. She also has been placed on the ventilator and has some sedation. At this time, she is relatively stable. Her blood pressure is stable as well as the O2 saturations and the heart rate. She has had multiple problems in the past. She has had histories with atrial flutter, for which she underwent ablation. She also then had an AVJ ablation, had pacemaker insertion. It appears that the worst problem is her CHF, which is diastolic in nature. She has had an echocardiogram back in 2011 which showed ejection fraction of 45% to 50%. In 2014, echocardiogram showed ejection fraction of 40% to 45%, but in 2017, ejection fraction was 55% to 60%. with diastolic dysfunction as noted above. She has had some urinary output. She is pacing 100% and chest x-ray shows congestive heart failure. She appears to be having some degree of third spacing, which most likely is associated with her diastolic heart failure. PAST MEDICAL HISTORY: Significant for congestive heart failure, atrial fibrillation, COPD in the form of asthma. She has a history of sleep apnea, uses a CPAP mask. She has morbid obesity. She has had ablation of atrial flutter in the past and AVJ ablation. She has pacemaker insertion. She has diabetes, chronic anemia. She has had a history of colostomy due to colon cancer. She has had reversal of colostomy. She has had a brain tumor and a craniotomy. The tumor apparently was benign. She has had rectal cancer, for which she received a colostomy and she has had a history of the pacemaker insertion. FAMILY HISTORY: Positive for cancer. SOCIAL HISTORY: There is no history of alcohol or tobacco abuse. She still has children, who are alive and well. I believe her daughter is now power of ip attorney. REVIEW OF SYSTEMS: Not obtainable at this time. PHYSICAL EXAMINATION: GENERAL: Reveals a morbidly obese elderly female, who is on the ventilator, slightly sedated but is arousable. VITAL SIGNS: Her blood pressure is 128/72, heart rate is 70 and shows 100% pacing, her O2 saturation is 100%, and respiratory rate is about 15. HEENT: Reveals the head to be normocephalic and atraumatic. Carotid pulses are present. I could not hear any bruits. However, there is increased airway noise. CHEST: Actually clear anteriorly. Decreased breath sounds posteriorly with some bibasilar rales. CARDIOVASCULAR: Reveals a regular rhythm. She does have a systolic murmur at the apex as well as at the upper sternal border. There were no heaves or thrills noted. ABDOMEN: Shows morbid obesity. Positive bowel sounds are present. EXTREMITIES: Show 2 to 3+ lower extremity edema. Pedal pulses are not palpable. NEUROLOGIC: The patient appears to be somewhat sedated but is on the ventilator , unable to obtain clear evaluation. LABORATORY DATA: Shows a hemoglobin of 6.4 with a Hct. 22.6, WBC was 16.7, and platelet count was 713,000. Sodium is 135, potassium 4.2, BUN was 60 with a creatinine of 1.43, and blood sugar was 88. Her magnesium was 1.9. Her INR was 2.6. Also, the urinalysis showed 4+ bacteria. She is on antibiotics. An echocardiogram was ordered, but it is still pending. Chest x-ray shows congestive heart failure. IMPRESSION: 1. Acute respiratory and cardiovascular failure. She remains on the ventilator. She appears to be having some third spacing and most likely severe diastolic dysfunction with stage III. On her previous admission, she was a DNR and apparently this has now been revoked and she is now being ventilated. She also has possible pneumonia. However, this most likely is congestive heart failure. 2. Urinary tract infection, for which she is on antibiotics. 3. Anemia, uncertain as to why she is so anemic. The renal function does not appear that is severe to cause a hemoglobin of 6.4. At this time, we will continue to follow the patient with you. After we repeat the echocardiogram, we will decide whether or not the patient will need to undergo possible dobutamine treatment or other inotropic support in the form of Milrinone. Further care of the patient will be by Dr. Razo when he visits with the patient tomorrow. At this time, I would agree with the present management. She is on the ventilator and apparently is doing well with O2 saturations are 100%. Further recommendations will depend on the results of the echocardiogram when it becomes available. Job ID: [id number] MTDD
--- NOTE | 2020-04-02 02:04 | CON ---
DATE OF CONSULTATION: HISTORY OF PRESENT ILLNESS: Leila Rico is an 85-year-old female, who was brought in by DNR, but family rescinded orders and for her pneumonia, she was intubated. Dr. Zarate has been seeing her as well as the hospitalist. She has a history of cardiomyopathy, frequent hospitalizations, admitted with respiratory distress and intubated. She has reportedly a lesion over right great toe, which has been there for many months. Wound Care asked that I be consulted to evaluate this. Foot x-ray has been obtained revealing soft tissue swelling, erosive changes around the first and second digits consistent with osteomyelitis. Evaluation of the wound reveals that there is an open wound with chronic inflammatory changes and when I expressed materials around, she has gouty expression. There was no purulence. She has a history of gout. There was no cellulitis. ALLERGIES: NONE. HOME MEDICATIONS: Include; 1. Lipitor. 2. Lasix. 3. Iron. 4. Ferosul. 5. Levaquin. 6. Cozaar. 7. Toprol. 8. Coumadin. In the hospital, she was on; 1. Methylprednisolone. 2. MiraLAX. 3. Lorazepam. 4. Morphine. 5. Furosemide. 6. Ceftriaxone. 7. She is on azithromycin. She has been ruled out for COVID. COVID negative. PAST SURGICAL HISTORY: Cardiac ablation, pacemaker, appendectomy, cholecystectomy, hysterectomy, colostomy reversal, craniotomy. PAST MEDICAL HISTORY: CHF, gout, rectal cancer, atrial fibrillation, diabetes mellitus, coronary artery disease, sleep apnea, CPAP at home, history of brain tumor excised. PHYSICAL EXAMINATION: GENERAL: The patient is on the ventilator. She is sedated. LUNGS: Clear to auscultation. CARDIAC: Regular rate and rhythm without murmur or gallop. ABDOMEN: Soft and obese. EXTREMITIES: Edematous. She has palpable pedal pulses. She has good capillary refill of toes. Right great toe dorsum reveals opening and express gouty contents from the surrounding area. There were chronic inflammatory changes without cellulitis. ASSESSMENT AND PLAN: Right great toe ulceration secondary to diabetes and gout. No indication for urgent intervention is necessary. This is a chronic problem. She does have erosive changes suggesting early osteomyelitis. I would recommend that we address this at a later time when she is over this acute illness. There is no reason to intervene at this time. Continue wound care without surgical intervention at this time. Job ID: [id number]
[2020-04-02 04:58] LABS: #Basophils 0.1 thou/uL (0.0-0.2); #Lymphocytes 0.5 thou/uL (1.20-3.40); #Monocytes 0.3 thou/uL (0.11-0.59); #Neutrophils 7.6 thou/uL (1.40-6.50); %Basophils 0.8 % (0.0-1.0); %Lymphocytes 5.4 % (21.0-51.0); %Neutrophils 90.8 % (42.0-75.0); Hemoglobin 7.9 g/dL (12.0-16.0); Mean Corpuscular HGB CONC 29.9 g/dL (32.0-36.0); Mean Corpuscular Hemoglobin 24.4 pg (27.0-31.0); Mean Corpuscular Volume 81.5 fL (78.0-98.0); Mean Platelet Volume 8.4 fL (7.4-10.4); Platelet Count 707 thou/uL (130-400); RBC Distribution Width 15.8 % (11.5-14.5); Red Blood Cell (RBC) Count 3.25 mill/uL (4.20-5.40); White Blood Cell (WBC) Count 8.4 thou/uL (4.8-10.8)
[2020-04-02 05:01] LABS: INR-International Normal Ratio 1.6; Prothrombin Time 19.1 SEC (12.0-14.7)
[2020-04-02 05:18] LABS: Anion Gap 18 mmol/L (10-20); BUN (Urea Nitrogen) 65 mg/dL (9.8-20.1); Calc. Creatinine Clearance 49 mL/min (70-130); Calcium 8.1 mg/dL (7.8-10.44); Carbon Dioxide 28 mmol/L (23-31); Chloride 97 mmol/L (98-107); Estimated GFR-MDRD 30; Glucose 118 mg/dL (83-110); Magnesium 2.1 mg/dL (1.6-2.6); Potassium 4.4 mmol/L (3.5-5.1); Sodium 139 mmol/L (136-145)
[2020-04-02] MEDS: Furosemide 100 MG/10 ML VIAL SLOW IVP SCH ×2 (06:27→13:17)
[2020-04-02 08:06] LABS: Actual Bicarbonate (HCO3a) 27.7 mEq/L (22-28); Base Excess (BEa) 3.5 mEq/L (-2.0 to +3.0); CO2 Tension 40.3 mmHg (35.0-45.0); Calcium, Ionized 1.06 mmol/L (1.12-1.30); Carboxyhemoglobin (COHb) 1.2 gm% (0.0-3.0); Hemoglobin (Hb) 8.7 g/dL (12.0-16.0); O2 Tension (PaO2), arterial 126.2 mmHg (> 60.0); Potassium - ABG Lab 3.81 mmol/L (3.70-5.30); pH, Arterial 7.46 (7.35-7.45)
[2020-04-02 08:07] LABS: Puncture Site LR
[2020-04-02 08:08] LABS: ALV-art Gradient 108.625 (0-20)
[2020-04-02] MEDS: Famotidine/PF 20 mg/2ml Vial SLOW IVP SCH (08:38)
[2020-04-02] MEDS: Polyethylene Glycol 3350 17 GM Packet PO SCH (08:38)
--- NOTE | 2020-04-02 13:56 | PQF ---
CLINICAL DOCUMENTATION IMPROVEMENT CLARIFICATION FORM: ICD-10 Updated PLEASE DO AN ADDENDUM TO THE PROGRESS NOTE WITH ANY DOCUMENTATION UPDATES OR ADDITIONS AND CARRY THROUGH TO DC SUMMARY. THANK YOU. DATE: 04/02/20 ATTN: DR. MARIE Please exercise your independent, professional judgment in responding to the clarification form. Clinical indicators are provided on the bottom of this form for your review Please check appropriate box(s) to clarify if the following diagnosis has been ruled in or ruled out: SEPSIS [ x ] Ruled in diagnosis [ x ] Continue to treat [ ] Resolved [ ] Ruled out diagnosis [ ] Improving [ ] Cannot rule out diagnosis [ ] Other diagnosis [ ] Unable to determine In addition, please specify: Present on Admission (POA): [x ] Yes [ ] No [ ] Unable to determine For continuity of documentation, please document condition throughout progress notes and discharge summary. Thank You. CLINICAL INDICATORS - SIGNS / SYMPTOMS / LABS / RESULTS AND LOCATION IN MR H&P: "SEPSIS" WBC 03/30: 18 RR 24 RECTAL TEMP 95 RISKS: PNEUMONIA (PN 5/4) OPEN TOE WOUND (PN 5/4) OSTEOMYELITIS (CONSULTATION NOTE 04/02- TREVOR) TREATMENT: IV AZITHROMYCIN (ER-PRESENT) IV ROCEPHIN (ER-PRESENT) MECHANICAL VENTILATION 03/30 URINE AND BLOOD CULTURES (03/30-03/31) [employer] [facility] [employer] Counselor Crystal [employer] Winform Viewer (This form is maintained as a part of the permanent medical record) 2014 [employer]. All Rights Reserved [email or web address] [email or web address] Cell [facility]
--- NOTE | 2020-04-02 18:17 | PRG ---
DATE OF SERVICE: 04/02/2020 Ms. Rico has been extubated. She is doing well. I have spoken with her regarding her right toe. She has only had the open wound in the last few weeks. I have talked to her about consideration of amputation of right great toe through the proximal phalanx. This could probably be closed primarily. The patient will talk to her daughter and they will make a decision. We could even perform this at a later time as an outpatient. Await family decision. Job ID: [id number]
[2020-04-02] MEDS: Azithromycin 500 MG in Sodium Chloride 0.9% 250 ML 250 ML IVPB SCH (20:04)
[2020-04-02] MEDS: cefTRIAXone\\ROCEPHIN 1 GM in Sodium Chloride 0.9% 100 ML IVPB SCH (21:17)
--- NOTE | 2020-04-02 22:27 | PDOC.HOSPP ---
- Subjective Encounter Date: 04/02/20 Subjective: Says she is doing well. Feels like she is breathing comfortably. - Objective Vital Signs & Weight: Vital Signs (12 hours) Temp Pulse Ox 04/02/20 20:00 98.1 F 04/02/20 16:00 97.6 F 100 04/02/20 12:00 97.6 F Weight Admit Weight 272 lb 11.2 oz Weight 268 lb 1.314 oz Most Recent Monitor Data Heart Rate from ECG 91 NIBP 143/75 NIBP BP-Mean 97 Respiration from ECG 22 SpO2 100 I&O: 04/01/20 04/02/20 04/03/20 06:59 06:59 06:59 Intake Total 1088 1724 754 Output Total 2430 2330 1281 Balance -1342 -606 -531 Result Diagrams: 04/02/20 04:30 04/02/20 04:30 Additional Labs: Accuchecks 04/02/20 04/02/20 04/02/20 21:20 12:58 09:06 POC Glucose 178 H 127 H 123 H 04/02/20 04/02/20 04/02/20 06:39 04:41 02:02 POC Glucose 120 H 151 H 127 H 04/02/20 04/01/20 00:24 23:31 POC Glucose 118 H 116 H Hospitalist ROS - Medication Medications: Active Medications Generic Name Dose Route Start Last Admin Trade Name Freq PRN Reason Stop Dose Admin Dextrose/Water 25 gm 03/30/20 20:38 03/31/20 10:46 Dextrose 50% SLOW IVP 25 gm PRN PRN Administration Hypoglycemia Famotidine 20 mg 04/02/20 09:00 04/02/20 08:38 Pepcid SLOW IVP 20 mg DAILY HAILEY Administration Furosemide 80 mg 03/31/20 06:00 04/02/20 13:17 Lasix SLOW IVP 80 mg 0600,1400 HAILEY Administration Azithromycin 500 mg/ Sodium 250 mls @ 250 mls/hr 03/31/20 20:00 04/02/20 20: 04 Chloride IVPB 04/04/20 20:01 250 mls Q24HR HAILEY Administration Ceftriaxone Sodium 1 gm/ 100 mls @ 200 mls/hr 03/31/20 21:00 04/02/20 21:17 Sodium Chloride IVPB 04/03/20 21:29 100 mls Q24HR HAILEY Administration Methylprednisolone Sodium Succinate 40 mg 04/01/20 12:00 04/02/20 17:47 Solu-Medrol IVP 40 mg Q6HR HAILEY Administration Polyethylene Glycol 17 gm 03/31/20 09:00 04/02/20 08:38 Miralax PO 17 gm DAILY HAILEY Administration Propofol 1,000 mg 03/30/20 23:56 04/02/20 00:25 Diprivan IV 04/29/20 23:56 1,000 mg INF PRN Administration TO ACHIEVE GOAL RASS Protocol Sodium Chloride 10 ml 04/01/20 07:17 04/02/20 17:47 Flush - Normal Saline IVF 10 ml PRN PRN Administration Saline Flush - Exam General Appearance: NAD, awake alert General - other findings: Obese. Heart: RRR, no murmur, no gallops, no rubs, normal peripheral pulses Respiratory: CTAB, no wheezes, no rales, no ronchi, normal chest expansion, no tachypnea, normal percussion Gastrointestinal: soft, non-tender, non-distended, normal bowel sounds, no palpable masses, no hepatomegaly, no splenomegaly, no bruit Extremities: 2+ LE edema (Generalized and all extremities) Musculoskeletal: generalized weakness Psychiatric: normal affect Hosp A/P (1) Acute respiratory failure with hypoxia Code(s): J96.01 - ACUTE RESPIRATORY FAILURE WITH HYPOXIA Status: Acute (2) Morbid obesity with BMI of 45.0-49.9, adult Code(s): E66.01 - MORBID (SEVERE) OBESITY DUE TO EXCESS CALORIES; Z68.42 - BODY MASS INDEX (BMI) 45.0-49.9, ADULT Status: Acute (3) LAKEISHA (acute kidney injury) Code(s): N17.9 - ACUTE KIDNEY FAILURE, UNSPECIFIED Status: Acute (4) Acute on chronic heart failure Code(s): I50.9 - HEART FAILURE, UNSPECIFIED Status: Acute Qualifiers: Heart failure type: diastolic Qualified Code(s): I50.33 - Acute on chronic diastolic (congestive) heart failure (5) Open toe wound Code(s): S91.109A - UNSP OPEN WOUND OF UNSP TOE(S) W/O DAMAGE TO NAIL, INIT Status: Acute Qualifiers: Encounter type: subsequent encounter Qualified Code(s): S91.109D - Unspecified open wound of unspecified toe(s) without damage to nail, subsequent encounter (6) Pneumonia Code(s): J18.9 - PNEUMONIA, UNSPECIFIED ORGANISM Status: Acute Qualifiers: Laterality: bilateral Lung location: lower lobe of lung (7) Hypoglycemia Code(s): E16.2 - HYPOGLYCEMIA, UNSPECIFIED Status: Resolved (8) Physical deconditioning Code(s): R53.81 - OTHER MALAISE Status: Acute (9) HTN (hypertension) Code(s): I10 - ESSENTIAL (PRIMARY) HYPERTENSION Status: Chronic Qualifiers: Hypertension type: essential hypertension Qualified Code(s): I10 - Essential (primary) hypertension (10) CLEMENCIA (obstructive sleep apnea) Code(s): G47.33 - OBSTRUCTIVE SLEEP APNEA (ADULT) (PEDIATRIC) Status: Chronic (11) Paroxysmal atrial fibrillation Code(s): I48.0 - PAROXYSMAL ATRIAL FIBRILLATION Status: Chronic (12) Type 2 diabetes mellitus Status: Chronic 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 She is still very volume overloaded peripherally. Continue IV diuretics. Continue Rocephin and Azithro. Pulm added steroids. Supplement oxygen as needed. Follow anemia. May need further workup as she stabilizes. INR now subtherapeutic. Will need to be cautious with her anemia. Was on warfarin for PAF. Appreciate surgery input regarding toe lesion. Possible osteo.
[2020-04-03] MEDS: Furosemide 100 MG/10 ML VIAL SLOW IVP SCH ×2 (06:00→13:52)
[2020-04-03] MEDS: methylPREDNISolone Sod Succ 40 MG VIAL IVP SCH ×3 (06:00→12:01)
[2020-04-03] MEDS: Polyethylene Glycol 3350 17 GM Packet PO SCH (08:17)
[2020-04-03] MEDS: Famotidine/PF 20 mg/2ml Vial SLOW IVP SCH (08:42)
--- NOTE | 2020-04-03 09:28 | PRG ---
DATE OF SERVICE: 04/02/2020 SUBJECTIVE: Ms. Rico did well overnight. She passed a leak test. OBJECTIVE: VITAL SIGNS: Her vital signs were stable. LUNGS: Clear anteriorly. HEART: Regular rhythm. ABDOMEN: Soft. EXTREMITIES: Without edema. LABORATORY DATA: White count 8.4, hemoglobin 7.9, and platelets 707,000. Sodium 139, potassium 4.4, chloride 97, bicarb 28, BUN 65, and creatinine 1.64. IMPRESSION AND PLAN: Respiratory failure. In my opinion, candidate for weaning and extubation. This was done successfully. She will be kept in the critical care unit for now. Critical care time 30 minutes. Job ID: [id number]
[2020-04-03 10:54] LABS: #Lymphocytes 0.3 thou/uL (1.20-3.40); #Monocytes 0.5 thou/uL (0.11-0.59); #Neutrophils 8.9 thou/uL (1.40-6.50); %Eosinophils 0.1 % (0.0-10.0); %Lymphocytes 3.3 % (21.0-51.0); %Monocytes 5.1 % (0.0-10.0); %Neutrophils 91.5 % (42.0-75.0); Hemoglobin 8.5 g/dL (12.0-16.0); Mean Corpuscular HGB CONC 29.5 g/dL (32.0-36.0); Mean Corpuscular Hemoglobin 24.6 pg (27.0-31.0); Mean Corpuscular Volume 83.5 fL (78.0-98.0); Mean Platelet Volume 8.4 fL (7.4-10.4); Platelet Count 680 thou/uL (130-400); RBC Distribution Width 15.5 % (11.5-14.5); Red Blood Cell (RBC) Count 3.45 mill/uL (4.20-5.40); White Blood Cell (WBC) Count 9.7 thou/uL (4.8-10.8)
[2020-04-03 10:59] LABS: Anion Gap 15 mmol/L (10-20); BUN (Urea Nitrogen) 66 mg/dL (9.8-20.1); Calc. Creatinine Clearance 49 mL/min (70-130); Calcium 8.5 mg/dL (7.8-10.44); Carbon Dioxide 29 mmol/L (23-31); Chloride 99 mmol/L (98-107); Estimated GFR-MDRD 31; Glucose 164 mg/dL (83-110); Potassium 4.1 mmol/L (3.5-5.1); Sodium 139 mmol/L (136-145)
[2020-04-03 11:13] LABS: Elliptocytes MODERATE= 6-15 cells (100X) (0-1/hpf); Hypochromia SLIGHT = 6-15 cells (100X) (0-5/hpf); MDiff Complete? YES; Platelet Morphology Comment Appears Increased; Polychromasia SLIGHT = 2-3 cells (100X) (0-2/hpf)
[2020-04-03 11:14] LABS: Schistocytes SLIGHT = 2-5 cells (100X) (0-1/hpf)
--- NOTE | 2020-04-03 15:19 | PDOC.HOSPP ---
- Subjective Encounter Date: 04/03/20 Subjective: Feels ok today. Denies feeling SOB. - Objective Vital Signs & Weight: Vital Signs (12 hours) Temp Pulse Pulse Pulse BP BP BP 04/03/20 09:29 98 107 H 140/77 142/110 H 04/03/20 09:00 98.3 F 04/03/20 07:19 73 137/88 04/03/20 06:54 04/03/20 04:00 97.6 F Pulse Ox Pulse Ox Pulse Ox 04/03/20 09:29 100 95 04/03/20 09:00 04/03/20 07:19 04/03/20 06:54 99 04/03/20 04:00 Weight Admit Weight 272 lb 11.2 oz Weight 263 lb 7.238 oz Most Recent Monitor Data Heart Rate from ECG 116 NIBP 125/84 NIBP BP-Mean 97 Respiration from ECG 23 SpO2 95 I&O: 04/02/20 04/03/20 04/04/20 06:59 06:59 06:59 Intake Total 1722 755 450 Output Total 2028 6831 1115 Balance 606 -1561 -665 Result Diagrams: 04/03/20 10:27 04/03/20 10:27 Additional Labs: Accuchecks 04/03/20 04/02/20 06:06 21:20 POC Glucose 142 H 178 H Hospitalist ROS - Medication Medications: Active Medications Generic Name Dose Route Start Last Admin Trade Name Freq PRN Reason Stop Dose Admin Dextrose/Water 25 gm 03/30/20 20:38 03/31/20 10:46 Dextrose 50% SLOW IVP 25 gm PRN PRN Administration Hypoglycemia Furosemide 80 mg 03/31/20 06:00 04/03/20 13:52 Lasix SLOW IVP 80 mg 0600,1400 HAILEY Administration Hydralazine HCl 10 mg 03/30/20 20:33 04/03/20 07:19 Apresoline SLOW IVP 10 mg Q6H PRN Administration SBP GREATER THAN 160 Azithromycin 500 mg/ Sodium 250 mls @ 250 mls/hr 03/31/20 20:00 04/02/20 20: 04 Chloride IVPB 04/04/20 20:01 250 mls Q24HR HAILEY Administration Polyethylene Glycol 17 gm 03/31/20 09:00 04/03/20 08:17 Miralax PO Not Given DAILY HAILEY Sodium Chloride 10 ml 04/01/20 07:17 04/02/20 17:47 Flush - Normal Saline IVF 10 ml PRN PRN Administration Saline Flush - Exam General Appearance: NAD, awake alert Heart: no murmur, no gallops, no rubs, irregular Respiratory: CTAB, no wheezes, no rales, no ronchi, normal chest expansion, no tachypnea, normal percussion Gastrointestinal: soft, non-tender, non-distended, normal bowel sounds, no palpable masses, no hepatomegaly, no splenomegaly, no bruit Extremities: 2+ LE edema Extremities - other findings: Generalized edema. Pitting in all extremities. Neurological: no focal deficits Musculoskeletal: generalized weakness Psychiatric: normal affect, normal behavior, A&O x 3 Hosp A/P (1) Acute respiratory failure with hypoxia Code(s): J96.01 - ACUTE RESPIRATORY FAILURE WITH HYPOXIA Status: Acute (2) Morbid obesity with BMI of 45.0-49.9, adult Code(s): E66.01 - MORBID (SEVERE) OBESITY DUE TO EXCESS CALORIES; Z68.42 - BODY MASS INDEX (BMI) 45.0-49.9, ADULT Status: Acute (3) LAKEISHA (acute kidney injury) Code(s): N17.9 - ACUTE KIDNEY FAILURE, UNSPECIFIED Status: Acute (4) Acute on chronic heart failure Code(s): I50.9 - HEART FAILURE, UNSPECIFIED Status: Acute Qualifiers: Heart failure type: diastolic Qualified Code(s): I50.33 - Acute on chronic diastolic (congestive) heart failure (5) Open toe wound Code(s): S91.109A - UNSP OPEN WOUND OF UNSP TOE(S) W/O DAMAGE TO NAIL, INIT Status: Acute Qualifiers: Encounter type: subsequent encounter Qualified Code(s): S91.109D - Unspecified open wound of unspecified toe(s) without damage to nail, subsequent encounter (6) Pneumonia Code(s): J18.9 - PNEUMONIA, UNSPECIFIED ORGANISM Status: Acute Qualifiers: Laterality: bilateral Lung location: lower lobe of lung (7) Hypoglycemia Code(s): E16.2 - HYPOGLYCEMIA, UNSPECIFIED Status: Resolved (8) Physical deconditioning Code(s): R53.81 - OTHER MALAISE Status: Acute (9) HTN (hypertension) Code(s): I10 - ESSENTIAL (PRIMARY) HYPERTENSION Status: Chronic Qualifiers: Hypertension type: essential hypertension Qualified Code(s): I10 - Essential (primary) hypertension (10) CLEMENCIA (obstructive sleep apnea) Code(s): G47.33 - OBSTRUCTIVE SLEEP APNEA (ADULT) (PEDIATRIC) Status: Chronic (11) Paroxysmal atrial fibrillation Code(s): I48.0 - PAROXYSMAL ATRIAL FIBRILLATION Status: Chronic (12) Type 2 diabetes mellitus Status: Chronic Qualifiers: Diabetes mellitus medical terminologist insulin use: without medical terminologist use Diabetes mellitus complication status: with unspecified complications (13) Supratherapeutic INR Code(s): R79.1 - ABNORMAL COAGULATION PROFILE Status: Resolved - Plan Acute respiratory failure: Extubated and doing well. CHF and pneumonia culprit. Continue IV diuretics. Supplemental oxygen. Pneumonia: Cefuroxime and Azithro (will be completed 04/04/20). Steroids DC'd. Acute on Chronic Diastolic Heart Failure: Still has anasarca. On IV Lasix 80 bid. Diuresing, but not huge amounts. Continue for now. If not improving, may need to consider the addition of zaroxolyn. PAF: On warfarin and beta cathy. Good rate control. Heparin until warfarin therapeutic. Chronic anemia: Has had prior workup indicating iron deficiency. She was on Fe supplements as OP. Resume oral iron. Also likely related to the CKD. Supratherapeutic INR: Now subtherapeutic. Will need to be cautious with her anemia. Was on warfarin for PAF. Will add low dose Heparin SC until therapeutic INR again. Open lesion of toe: Appreciate surgery input regarding toe lesion. Possible osteo. Amputation discussed with the patient. May need to happen as OP on follow up when more stable. Hyperglycemia: Does not appear to be high now. ROMERO accuchecks. HLD: Statin. DVT Proph: Warfarin/heparin. GI proph: H2 antag.
[2020-04-03] MEDS: Ferrous Sulfate 325 MG TAB PO SCH (17:54)
[2020-04-03] MEDS ORDERED: Famotidine 20 MG TAB PO SCH (21:00)
[2020-04-03] MEDS: Azithromycin 500 MG in Sodium Chloride 0.9% 250 ML 250 ML IVPB SCH (21:52)
[2020-04-03] MEDS: Cefuroxime Axetil 250 MG TAB PO SCH (21:53)
[2020-04-03] MEDS: Atorvastatin Calcium 40 MG TAB PO SCH (21:53)
[2020-04-03] MEDS: Heparin 5,000 UNITS/ML VIAL SC SCH (21:54)
[2020-04-03] MEDS: HumaLOG 300 UNITS/3 ML VIAL SC PRN (21:54)
[2020-04-04 04:06] LABS: #Lymphocytes 0.8 thou/uL (1.20-3.40); #Monocytes 1.3 thou/uL (0.11-0.59); #Neutrophils 8.8 thou/uL (1.40-6.50); %Basophils 0.1 % (0.0-1.0); %Eosinophils 0.1 % (0.0-10.0); %Lymphocytes 7.1 % (21.0-51.0); %Monocytes 11.9 % (0.0-10.0); %Neutrophils 80.9 % (42.0-75.0); Hemoglobin 7.5 g/dL (12.0-16.0); Mean Corpuscular HGB CONC 28.9 g/dL (32.0-36.0); Mean Corpuscular Volume 83.1 fL (78.0-98.0); Mean Platelet Volume 8.6 fL (7.4-10.4); Platelet Count 555 thou/uL (130-400); RBC Distribution Width 15.4 % (11.5-14.5); Red Blood Cell (RBC) Count 3.14 mill/uL (4.20-5.40); White Blood Cell (WBC) Count 10.9 thou/uL (4.8-10.8)
[2020-04-04 04:09] LABS: INR-International Normal Ratio 1.4; PTT 26.6 SEC (22.9-36.1); Prothrombin Time 16.7 sec (12.0-14.7)
[2020-04-04 04:20] LABS: Anion Gap 16 mmol/L (10-20); BUN (Urea Nitrogen) 68 mg/dL (9.8-20.1); Calc. Creatinine Clearance 50 mL/min (70-130); Calcium 8.3 mg/dL (7.8-10.44); Carbon Dioxide 28 mmol/L (23-31); Chloride 100 mmol/L (98-107); Estimated GFR-MDRD 32; Glucose 115 mg/dL (83-110); Potassium 3.6 mmol/L (3.5-5.1); Sodium 140 mmol/L (136-145)
[2020-04-04] MEDS: Furosemide 100 MG/10 ML VIAL SLOW IVP SCH ×2 (05:57→14:02)
--- NOTE | 2020-04-04 06:40 | PRG ---
DATE OF SERVICE: 04/03/2020 SUBJECTIVE: Leila Rico is in no distress today. Her only complaint was swelling. She does have 4-extremity edema. OBJECTIVE: VITAL SIGNS: Heart rate is 88, respiratory rate is 18 to low 20s, and blood pressure 130/65. Intake and outputs -1561 mL. LUNGS: Clear anteriorly. HEART: Regular rhythm. ABDOMEN: Soft. LABORATORY DATA: White count 9.7, hemoglobin 8.5, and platelets 680. Sodium 139, potassium 4.1, chloride 99, bicarb 29, creatinine 1.57 down from 1.64. IMPRESSION AND PLAN: 1. Status post mechanical ventilation, diastolic heart failure, clinically stable. 2. Probable vocal cord edema, resolved with IV steroids. Passing a leak test yesterday leading to . She had no stridor. Her steroids will be discontinued today. Her sedation protocol will be removed. medication record. I believe she is stable . Job ID: [id number]
[2020-04-04] MEDS: Heparin 5,000 UNITS/ML VIAL SC SCH (09:00)
[2020-04-04] MEDS: Ferrous Sulfate 325 MG TAB PO SCH ×3 (09:01→17:15)
[2020-04-04] MEDS: Cefuroxime Axetil 250 MG TAB PO SCH ×2 (09:02→21:48)
[2020-04-04] MEDS: Polyethylene Glycol 3350 17 GM Packet PO SCH (09:06)
[2020-04-04 12:31] VITALS: BMI 50.3
--- NOTE | 2020-04-04 14:45 | PDOC.FMACP ---
Advance Care Planning - Problem (1) Palliative care encounter Status: Acute Code(s): Z51.5 - ENCOUNTER FOR PALLIATIVE CARE (2) Acute on chronic heart failure Status: Acute Code(s): I50.9 - HEART FAILURE, UNSPECIFIED Qualifiers: Heart failure type: diastolic Qualified Code(s): I50.33 - Acute on chronic diastolic (congestive) heart failure (3) Anemia Status: Acute Code(s): D64.9 - ANEMIA, UNSPECIFIED Qualifiers: Anemia type: unspecified type Qualified Code(s): D64.9 - Anemia, unspecified (4) Acute renal failure superimposed on stage 3 chronic kidney disease Status: Acute Code(s): N17.9 - ACUTE KIDNEY FAILURE, UNSPECIFIED; N18.3 - CHRONIC KIDNEY DISEASE, STAGE 3 (MODERATE) (5) Acute respiratory failure with hypoxia Status: Acute Code(s): J96.01 - ACUTE RESPIRATORY FAILURE WITH HYPOXIA (6) Physical deconditioning Status: Acute Code(s): R53.81 - OTHER MALAISE (7) Obesity (BMI 30-39.9) Status: Chronic Code(s): E66.9 - OBESITY, UNSPECIFIED - Note Participants: patient, palliative care Summary: Advanced Care Planning was discussed. The diagnosis, prognosis and goals of care were discussed. Appropriate forms and documentation to accomplish the goals of care were discussed. All questions were answered. The Palliative Care Team will be engaged to assist with completion of any outstanding forms that are needed. Prior DNAR in 2019, however patient states currently she wishes to remain with full resuscitation measures. States her daughter is her surrogate decision maker , Marisol Chapa. Patient lives with her daughter. In relation to Goal of care Ms Rico is interested of possible transition to long-term as she is concerned she is a burden in the home setting for her daughter. States she will discuss with her daughter when she returns home. Currently is non ambulatory and unable to assist with transfers. Renard lift used for transfer to bed to recliner. Uses a wheelchair or motorized scooter at times. Uses briefs as she is unable to use bedside commode in home setting. Time Spent (mins): 30
--- NOTE | 2020-04-04 14:47 | PDOC.PALFU ---
Palliative Care Follow-up Note Palliative Care will sign off as Resuscitation status, confirmation of wishes addressed with Ms Rico. If PC can assist in the future with Goal of care, symptom management, assistance with complex decisions, coping, family support please re consult.
--- NOTE | 2020-04-04 16:20 | PDOC.HOSPP ---
- Subjective Encounter Date: 04/04/20 Encounter Time: 11:15 Subjective: pt up in bed no complains. - Objective Vital Signs & Weight: Vital Signs (12 hours) Temp Pulse Pulse Pulse Resp BP BP 04/04/20 14:21 71 72 159/70 H 128/80 04/04/20 11:34 98.0 F 69 22 H 04/04/20 08:00 97.8 F 70 20 BP Pulse Ox 04/04/20 14:21 04/04/20 11:34 119/56 L 95 04/04/20 08:00 128/66 96 Weight Admit Weight 272 lb 11.2 oz Weight 266 lb 11.2 oz Most Recent Monitor Data Heart Rate from ECG 108 NIBP 125/84 NIBP BP-Mean 97 Respiration from ECG 27 SpO2 96 I&O: 04/03/20 04/04/20 04/05/20 06:59 06:59 06:59 Intake Total 754 1000 Output Total 0848 7515 Balance -5891 -1737 Result Diagrams: 04/04/20 03:33 04/04/20 03:33 Additional Labs: Accuchecks 04/04/20 04/03/20 05:35 20:36 POC Glucose 126 H 272 H Hospitalist ROS - Review of Systems Cardiovascular: denies: chest pain, palpitations, orthopnea, paroxysmal noc. dyspnea, edema, light headedness, other Gastrointestinal: denies: nausea, vomiting, abdominal pain, diarrhea, constipation, melena, hematochezia, other Genitourinary: denies: dysuria, frequency, incontinence, hematuria, retention, other - Medication Medications: Active Medications Generic Name Dose Route Start Last Admin Trade Name Freq PRN Reason Stop Dose Admin Atorvastatin Calcium 40 mg 04/03/20 21:00 04/03/20 21:53 Lipitor PO 40 mg HS HAILEY Administration Cefuroxime Axetil 250 mg 04/03/20 21:00 04/04/20 09:02 Ceftin PO 250 mg Q12HR HAILEY Administration Dextrose/Water 25 gm 03/30/20 20:38 03/31/20 10:46 Dextrose 50% SLOW IVP 25 gm PRN PRN Administration Hypoglycemia Ferrous Sulfate 325 mg 04/03/20 17:00 04/04/20 13:00 Feosol PO 325 mg TID-WM HAILEY Administration Furosemide 80 mg 03/31/20 06:00 04/04/20 14:02 Lasix SLOW IVP 80 mg 0600,1400 HAILEY Administration Heparin Sodium (Porcine) 5,000 units 04/03/20 21:00 04/04/20 09:00 Heparin SC 5,000 units BID HAILEY Administration Hydralazine HCl 10 mg 03/30/20 20:33 04/03/20 07:19 Apresoline SLOW IVP 10 mg Q6H PRN Administration SBP GREATER THAN 160 Azithromycin 500 mg/ Sodium 250 mls @ 250 mls/hr 03/31/20 20:00 04/03/20 21: 52 Chloride IVPB 04/04/20 20:01 250 mls Q24HR HAILEY Administration Insulin Human Lispro 0 units 03/30/20 20:38 04/03/20 21:54 Humalog SC 4 unit .MILD SLIDING SCALE PRN Administration Mild Correctional Scale Polyethylene Glycol 17 gm 03/31/20 09:00 04/04/20 09:06 Miralax PO Not Given DAILY HAILEY Sodium Chloride 10 ml 04/01/20 07:17 04/02/20 17:47 Flush - Normal Saline IVF 10 ml PRN PRN Administration Saline Flush - Exam Neck: negative: supple, symmetric, no JVD, no thyromegaly, no lymphadenopathy, no carotid bruit, JVD Heart: negative: RRR, no murmur, no gallops, no rubs, normal peripheral pulses, irregular, diminshed peripheral pulses, murmur present, II/IV, III/IV Respiratory: negative: CTAB, no wheezes, no rales, no ronchi, normal chest expansion, no tachypnea, normal percussion, rales, rhonchi, tachypneic, wheezes Gastrointestinal: negative: soft, non-tender, non-distended, normal bowel sounds , no palpable masses, no hepatomegaly, no splenomegaly, no bruit, no guarding, no rigidity, tender to palpation, distended, diminished bowl sounds, voluntary guarding Extremities: 2+ LE edema Hosp A/P - Plan (1) Acute respiratory failure with hypoxia Code(s): J96.01 - ACUTE RESPIRATORY FAILURE WITH HYPOXIA Status: Acute (2) Morbid obesity with BMI of 45.0-49.9, adult Code(s): E66.01 - MORBID (SEVERE) OBESITY DUE TO EXCESS CALORIES; Z68.42 - BODY MASS INDEX (BMI) 45.0-49.9, ADULT Status: Acute (3) LAKEISHA (acute kidney injury) Code(s): N17.9 - ACUTE KIDNEY FAILURE, UNSPECIFIED Status: Acute (4) Acute on chronic heart failure Code(s): I50.9 - HEART FAILURE, UNSPECIFIED Status: Acute Qualifiers: Heart failure type: diastolic Qualified Code(s): I50.33 - Acute on chronic diastolic (congestive) heart failure (5) Open toe wound Code(s): S91.109A - UNSP OPEN WOUND OF UNSP TOE(S) W/O DAMAGE TO NAIL, INIT Status: Acute Qualifiers: Encounter type: subsequent encounter Qualified Code(s): S91.109D - Unspecified open wound of unspecified toe(s) without damage to nail, subsequent encounter (6) Pneumonia Code(s): J18.9 - PNEUMONIA, UNSPECIFIED ORGANISM Status: Acute Qualifiers: Laterality: bilateral Lung location: lower lobe of lung (7) Hypoglycemia Code(s): E16.2 - HYPOGLYCEMIA, UNSPECIFIED Status: Resolved (8) Physical deconditioning Code(s): R53.81 - OTHER MALAISE Status: Acute (9) HTN (hypertension) Code(s): I10 - ESSENTIAL (PRIMARY) HYPERTENSION Status: Chronic Qualifiers: Hypertension type: essential hypertension Qualified Code(s): I10 - Essential (primary) hypertension (10) CLEMENCIA (obstructive sleep apnea) Code(s): G47.33 - OBSTRUCTIVE SLEEP APNEA (ADULT) (PEDIATRIC) Status: Chronic (11) Paroxysmal atrial fibrillation Code(s): I48.0 - PAROXYSMAL ATRIAL FIBRILLATION Status: Chronic (12) Type 2 diabetes mellitus Status: Chronic Qualifiers: Diabetes mellitus [employer] intermedi[employer] insulin use: without [employer] intermediary use Diabetes mellitus complication status: with unspecified complications (13) Supratherapeutic INR Code(s): R79.1 - ABNORMAL COAGULATION PROFILE Status: Resolved - Plan Acute respiratory failure: Extubated and doing well. CHF and pneumonia culprit. Continue IV diuretics. Supplemental oxygen. Pneumonia: Cefuroxime and Azithro (will be completed 04/04/20). Steroids DC'd. Acute on Chronic Diastolic Heart Failure: Still has anasarca. On IV Lasix 80 bid. Diuresing, but not huge amounts. Continue for now. If not improving, may need to consider the addition of zaroxolyn. 04/04 will add zaroxolyn and see if this help, she has significant edema. pt is immobile at baseline. pt continues to have a mast. PAF: On warfarin and beta cathy. Good rate control. Heparin until warfarin therapeutic. 04/04 will start him on warfarin and monitor hh. Not sure why she is anemic. possible multifactorial. Chronic anemia: Has had prior workup indicating iron deficiency. She was on Fe supplements as OP. Resume oral iron. Also likely related to the CKD. Supratherapeutic INR: Now subtherapeutic. Will need to be cautious with her anemia. Was on warfarin for PAF. Will add low dose Heparin SC until therapeutic INR again. 04/04 will start warfarin and continue her heparin dvt ppx until her inr is 2 or 1.9. she is 1.4 today Open lesion of toe: Appreciate surgery input regarding toe lesion. Possible osteo. Amputation discussed with the patient. May need to happen as OP on follow up when more stable. Hyperglycemia: Does not appear to be high now. ROMERO accuchecks. HLD: Statin. DVT Proph: Warfarin/heparin. GI proph: H2 antag.
[2020-04-04] MEDS: Warfarin Sodium 5 MG TAB PO SCH (17:15)
--- NOTE | 2020-04-04 18:17 | PRG ---
DATE OF SERVICE: 04/04/2020 SUBJECTIVE: Ms. Rico is doing better. She is on telemetry monitoring. She continues to have edema, but less shortness of breath. Her LVEF on recent echo appeared normal. She does continue to be anemic. OBJECTIVE: VITAL SIGNS: Blood pressure 122/80, pulse 69, and temperature 98. LUNGS: Crackles noted bilaterally. HEART: Regular rate and rhythm. ABDOMEN: Soft, nontender, and nondistended. EXTREMITIES: 2+ pitting edema, mainly in the upper extremities and lower extremities. PERTINENT LABORATORY DATA: Hemoglobin 7.5, down from 8.5. IMPRESSION: 1. [id number] diastolic heart failure. 2. Pneumonia. 3. Atrial fibrillation. RECOMMENDATIONS: 1. Continue diuresis. 2. Continue Coumadin, although concerned about low hemoglobin, but likely chronic. 3. On antibiotic therapy. Job ID: [id number]
[2020-04-04] MEDS: Atorvastatin Calcium 40 MG TAB PO SCH (21:48)
[2020-04-04] MEDS: Azithromycin 500 MG in Sodium Chloride 0.9% 250 ML 250 ML IVPB SCH (21:48)
[2020-04-04] MEDS: Famotidine 20 MG TAB PO SCH (21:48)
[2020-04-05 04:37] LABS: INR-International Normal Ratio 1.3; PTT 26.9 SEC (22.9-36.1); Prothrombin Time 16.5 sec (12.0-14.7)
[2020-04-05 04:47] LABS: Anion Gap 11 mmol/L (10-20); BUN (Urea Nitrogen) 58 mg/dL (9.8-20.1); Calc. Creatinine Clearance 59 mL/min (70-130); Calcium 8.2 mg/dL (7.8-10.44); Carbon Dioxide 36 mmol/L (23-31); Chloride 100 mmol/L (98-107); Estimated GFR-MDRD 38; Glucose 79 mg/dL (83-110); Sodium 144 mmol/L (136-145)
[2020-04-05 04:58] LABS: #Eosinphils 0.1 thou/uL (0.0-0.7); #Lymphocytes 1.7 thou/uL (1.20-3.40); #Neutrophils 6.3 thou/uL (1.40-6.50); %Basophils 0.1 % (0.0-1.0); %Eosinophils 0.8 % (0.0-10.0); %Lymphocytes 18.9 % (21.0-51.0); %Monocytes 10.8 % (0.0-10.0); %Neutrophils 69.4 % (42.0-75.0); Hemoglobin 7.4 g/dL (12.0-16.0); Mean Corpuscular HGB CONC 29.8 g/dL (32.0-36.0); Mean Corpuscular Hemoglobin 24.4 pg (27.0-31.0); Mean Corpuscular Volume 82.2 fL (78.0-98.0); Mean Platelet Volume 8.6 fL (7.4-10.4); Platelet Count 464 thou/uL (130-400); RBC Distribution Width 15.1 % (11.5-14.5); Red Blood Cell (RBC) Count 3.02 mill/uL (4.20-5.40)
[2020-04-05] MEDS: Metolazone 2.5 MG TAB PO SCH (05:37)
[2020-04-05] MEDS: Furosemide 100 MG/10 ML VIAL SLOW IVP SCH ×2 (05:38→13:15)
[2020-04-05] MEDS: Cefuroxime Axetil 250 MG TAB PO SCH (09:05)
[2020-04-05] MEDS: Ferrous Sulfate 325 MG TAB PO SCH ×3 (09:05→17:25)
[2020-04-05] MEDS: Polyethylene Glycol 3350 17 GM Packet PO SCH ×2 (09:05→13:57)
--- NOTE | 2020-04-05 14:36 | PRG ---
DATE OF SERVICE: 04/05/2020 SUBJECTIVE: Ms. Rico's breathing is much better. She denies significant shortness of breath. She continues to have edema. Her hemoglobin remains low. OBJECTIVE: VITAL SIGNS: Blood pressure 175/74, pulse 70, respirations 20. LUNGS: Minimal crackles bilaterally. HEART: Regular rate and rhythm. ABDOMEN: Soft, nontender, nondistended. EXTREMITIES: No edema. PERTINENT LABORATORY DATA: Hemoglobin 7.4 down from 7.5. IMPRESSION: 1. Acute on chronic diastolic heart failure. 2. Pneumonia. 3. Status post pacemaker. 4. Anemia. RECOMMENDATIONS: 1. Continue Lasix. 2. The patient is currently paced and is rate controlled. She is currently doing well with minimal symptoms from a shortness of breath standpoint. Looking back at her hemoglobin, she has been chronically low since July 2018 ranging between 7 and 9. She may be near her baseline. Would need a GI workup, if not had a GI workup recently. Otherwise, I have no further recommendations. Dr. Ayala is on this weekend for any further questions. We will follow peripherally. Job ID: [id number]
--- NOTE | 2020-04-05 15:41 | PDOC.HOSPP ---
- Subjective Encounter Date: 04/05/20 Encounter Time: 10:11 Subjective: pt up in bed no complains. she feels she still has a lot of fluid on her. - Objective Vital Signs & Weight: Vital Signs (12 hours) Temp Pulse Resp BP Pulse Ox 04/05/20 12:45 98.4 F 71 15 171/71 H 96 04/05/20 10:15 97 04/05/20 07:45 98.8 F 70 17 175/74 H 99 Weight Admit Weight 272 lb 11.2 oz Weight 264 lb 1.6 oz Most Recent Monitor Data Heart Rate from ECG 108 NIBP 125/84 NIBP BP-Mean 97 Respiration from ECG 27 SpO2 96 I&O: 04/04/20 04/05/20 04/06/20 06:59 06:59 06:59 Intake Total 1000 1750 Output Total 2235 3750 Balance -1234 Result Diagrams: 04/05/20 03:52 04/05/20 03:52 Additional Labs: Accuchecks 04/05/20 04/04/20 04/04/20 05:47 23:41 14:11 POC Glucose 88 97 107 Hospitalist ROS - Review of Systems Cardiovascular: denies: chest pain, palpitations, orthopnea, paroxysmal noc. dyspnea, edema, light headedness, other Gastrointestinal: denies: nausea, vomiting, abdominal pain, diarrhea, constipation, melena, hematochezia, other Genitourinary: denies: dysuria, frequency, incontinence, hematuria, retention, other - Medication Medications: Active Medications Generic Name Dose Route Start Last Admin Trade Name Freq PRN Reason Stop Dose Admin Atorvastatin Calcium 40 mg 04/03/20 21:00 04/04/20 21:48 Lipitor PO 40 mg HS HAILEY Administration Cefuroxime Axetil 250 mg 04/03/20 21:00 04/05/20 09:05 Ceftin PO 250 mg Q12HR HAILEY Administration Dextrose/Water 25 gm 03/30/20 20:38 03/31/20 10:46 Dextrose 50% SLOW IVP 25 gm PRN PRN Administration Hypoglycemia Famotidine 20 mg 04/04/20 21:00 04/04/20 21:48 Pepcid PO 20 mg QPM HAILEY Administration Ferrous Sulfate 325 mg 04/03/20 17:00 04/05/20 13:15 Feosol PO 325 mg TID-WM HAILEY Administration Furosemide 80 mg 03/31/20 06:00 04/05/20 13:15 Lasix SLOW IVP 80 mg 0600,1400 HAILEY Administration Hydralazine HCl 10 mg 03/30/20 20:33 04/03/20 07:19 Apresoline SLOW IVP 10 mg Q6H PRN Administration SBP GREATER THAN 160 Insulin Human Lispro 0 units 03/30/20 20:38 04/03/20 21:54 Humalog SC 4 unit .MILD SLIDING SCALE PRN Administration Mild Correctional Scale Metolazone 2.5 mg 04/05/20 05:30 04/05/20 05:37 Zaroxolyn PO 2.5 mg 0530 HAILEY Administration Polyethylene Glycol 17 gm 03/31/20 09:00 04/05/20 13:57 Miralax PO Not Given DAILY HAILEY Sodium Chloride 10 ml 04/01/20 07:17 04/02/20 17:47 Flush - Normal Saline IVF 10 ml PRN PRN Administration Saline Flush Warfarin Sodium 5 mg 04/04/20 17:00 04/04/20 17:15 Coumadin PO 5 mg 1700 HAILEY Administration - Exam Neck: negative: supple, symmetric, no JVD, no thyromegaly, no lymphadenopathy, no carotid bruit, JVD Heart: negative: RRR, no murmur, no gallops, no rubs, normal peripheral pulses, irregular, diminshed peripheral pulses, murmur present, II/IV, III/IV Respiratory: rales Gastrointestinal: negative: soft, non-tender, non-distended, normal bowel sounds , no palpable masses, no hepatomegaly, no splenomegaly, no bruit, no guarding, no rigidity, tender to palpation, distended, diminished bowl sounds, voluntary guarding Extremities: 2+ LE edema (significant edema to lower ext and upper ext) Skin - other findings: bruises all over Hosp A/P - Plan (1) Acute respiratory failure with hypoxia Code(s): J96.01 - ACUTE RESPIRATORY FAILURE WITH HYPOXIA Status: Acute (2) Morbid obesity with BMI of 45.0-49.9, adult Code(s): E66.01 - MORBID (SEVERE) OBESITY DUE TO EXCESS CALORIES; Z68.42 - BODY MASS INDEX (BMI) 45.0-49.9, ADULT Status: Acute (3) LAKEISHA (acute kidney injury) Code(s): N17.9 - ACUTE KIDNEY FAILURE, UNSPECIFIED Status: Acute (4) Acute on chronic heart failure Code(s): I50.9 - HEART FAILURE, UNSPECIFIED Status: Acute Qualifiers: Heart failure type: diastolic Qualified Code(s): I50.33 - Acute on chronic diastolic (congestive) heart failure (5) Open toe wound Code(s): S91.109A - UNSP OPEN WOUND OF UNSP TOE(S) W/O DAMAGE TO NAIL, INIT Status: Acute Qualifiers: Encounter type: subsequent encounter Qualified Code(s): S91.109D - Unspecified open wound of unspecified toe(s) without damage to nail, subsequent encounter (6) Pneumonia Code(s): J18.9 - PNEUMONIA, UNSPECIFIED ORGANISM Status: Acute Qualifiers: Laterality: bilateral Lung location: lower lobe of lung (7) Hypoglycemia Code(s): E16.2 - HYPOGLYCEMIA, UNSPECIFIED Status: Resolved (8) Physical deconditioning Code(s): R53.81 - OTHER MALAISE Status: Acute (9) HTN (hypertension) Code(s): I10 - ESSENTIAL (PRIMARY) HYPERTENSION Status: Chronic Qualifiers: Hypertension type: essential hypertension Qualified Code(s): I10 - Essential (primary) hypertension (10) CLEMENCIA (obstructive sleep apnea) Code(s): G47.33 - OBSTRUCTIVE SLEEP APNEA (ADULT) (PEDIATRIC) Status: Chronic (11) Paroxysmal atrial fibrillation Code(s): I48.0 - PAROXYSMAL ATRIAL FIBRILLATION Status: Chronic (12) Type 2 diabetes mellitus Status: Chronic Qualifiers: Diabetes mellitus [facility] insulin use: without terminal superintendent use Diabetes mellitus complication status: with unspecified complications (13) Supratherapeutic INR Code(s): R79.1 - ABNORMAL COAGULATION PROFILE Status: Resolved - Plan Acute respiratory failure: Extubated and doing well. CHF and pneumonia culprit. Continue IV diuretics. Supplemental oxygen. Pneumonia: Cefuroxime and Azithro (will be completed 04/04/20). Steroids DC'd. Acute on Chronic Diastolic Heart Failure: Still has anasarca. On IV Lasix 80 bid. Diuresing, but not huge amounts. Continue for now. If not improving, may need to consider the addition of zaroxolyn. 04/04 will add zaroxolyn and see if this help, she has significant edema. pt is immobile at baseline. pt continues to have a mast. 04/05 pt still has significant fluid all over. she has a mast for accurate intake /output. Her immobility does not help. PAF: On warfarin and beta cathy. Good rate control. Heparin until warfarin therapeutic. 04/04 will start him on warfarin and monitor hh. Not sure why she is anemic. possible multifactorial. Chronic anemia: Has had prior workup indicating iron deficiency. She was on Fe supplements as OP. Resume oral iron. Also likely related to the CKD. 04/04 pt has had colon cancer she is high risk for dvt/pe and stroke. will watch her hh and continue coumadin. Supratherapeutic INR: Now subtherapeutic. Will need to be cautious with her anemia. Was on warfarin for PAF. Will add low dose Heparin SC until therapeutic INR again. 04/04 will start warfarin and continue her heparin dvt ppx until her inr is 2 or 1.9. she is 1.4 today 04/05 will stop her heparin and continue coumadin. Open lesion of toe: Appreciate surgery input regarding toe lesion. Possible osteo. Amputation discussed with the patient. May need to happen as OP on follow up when more stable. Hyperglycemia: Does not appear to be high now. ROMERO accuchecks. HLD: Statin. DVT Proph: Warfarin GI proph: H2 antag.
[2020-04-05] MEDS: Potassium Chloride 20 MEQ TAB PO SCH (17:25)
[2020-04-05] MEDS: Warfarin Sodium 5 MG TAB PO SCH (17:26)
[2020-04-05] MEDS: Famotidine 20 MG TAB PO SCH (20:50)
[2020-04-05] MEDS: Atorvastatin Calcium 40 MG TAB PO SCH (20:50)
[2020-04-06] MEDS: Furosemide 100 MG/10 ML VIAL SLOW IVP SCH ×2 (05:10→13:29)
[2020-04-06] MEDS: Metolazone 2.5 MG TAB PO SCH (05:10)
--- NOTE | 2020-04-06 08:08 | RAD ---
Exam: Chest one view HISTORY:Congestive heart failure Comparison: 04/01/2020 FINDINGS: Lines and tubes: Interval removal of endotracheal and nasogastric tube. Stable left-sided transvenous pacemaker. Cardiac silhouette:Cardiomegaly. Aorta: Atherosclerosis Pulmonary vessels: Normal Costophrenic angles: Residual bibasilar pleural effusions. LUNGS: Residual interstitial and alveolar opacities. Overall, improved aeration Pneumothorax: None Osseous abnormalities: None IMPRESSION: 1. Atherosclerosis 2. Residual bilateral pleural effusions do remain. Improved aeration of the lung parenchyma. Residual interstitial and alveolar opacities do remain. 3. Interval removal of endotracheal and nasogastric tube.
[2020-04-06] MEDS: Ferrous Sulfate 325 MG TAB PO SCH ×3 (08:35→16:48)
[2020-04-06] MEDS: Polyethylene Glycol 3350 17 GM Packet PO SCH (08:35)
[2020-04-06] MEDS: Potassium Chloride 20 MEQ TAB PO SCH (08:35)
[2020-04-06 08:58] LABS: INR-International Normal Ratio 1.3; Prothrombin Time 15.9 sec (12.0-14.7)
--- NOTE | 2020-04-06 11:17 | PDOC.HOSPP ---
- Subjective Encounter Date: 04/06/20 Encounter Time: 11:05 Subjective: f/u for multifactorial resp failure s/p mech ventilation for CHF/PNA on current Cefuroxime/Lasix on RA. Diuresing with 25lb weight loss since admit. - Objective Vital Signs & Weight: Vital Signs (12 hours) Temp Pulse Resp BP Pulse Ox 04/06/20 08:26 98.4 F 71 16 127/60 100 04/06/20 04:00 98.8 F 74 16 154/75 H 94 L Weight Admit Weight 272 lb 11.2 oz Weight 247 lb 3.2 oz Most Recent Monitor Data Heart Rate from ECG 108 NIBP 125/84 NIBP BP-Mean 97 Respiration from ECG 27 SpO2 96 I&O: 04/05/20 04/06/20 04/07/20 06:59 06:59 06:59 Intake Total 1750 1720 Output Total 3750 6800 Balance -2000 -5080 Result Diagrams: 04/05/20 03:52 04/05/20 03:52 Radiology Reviewed by me: Yes (PCXR - bilat effusions, interstitial infiltrates) EKG Reviewed by me: Yes (Tele - V-pacing) Hospitalist ROS - Medication Medications: Active Medications Generic Name Dose Route Start Last Admin Trade Name Freq PRN Reason Stop Dose Admin Atorvastatin Calcium 40 mg 04/03/20 21:00 04/05/20 20:50 Lipitor PO 40 mg HS HAILEY Administration Dextrose/Water 25 gm 03/30/20 20:38 03/31/20 10:46 Dextrose 50% SLOW IVP 25 gm PRN PRN Administration Hypoglycemia Famotidine 20 mg 04/04/20 21:00 04/05/20 20:50 Pepcid PO 20 mg QPM HAILEY Administration Ferrous Sulfate 325 mg 04/03/20 17:00 04/06/20 08:35 Feosol PO 325 mg TID-WM HAILEY Administration Furosemide 80 mg 03/31/20 06:00 04/06/20 05:10 Lasix SLOW IVP 80 mg 0600,1400 HAILEY Administration Hydralazine HCl 10 mg 03/30/20 20:33 04/03/20 07:19 Apresoline SLOW IVP 10 mg Q6H PRN Administration SBP GREATER THAN 160 Insulin Human Lispro 0 units 03/30/20 20:38 05/06/20 21:54 Humalog SC 4 unit .MILD SLIDING SCALE PRN Administration Mild Correctional Scale Metolazone 2.5 mg 04/05/20 05:30 04/06/20 05:10 Zaroxolyn PO 2.5 mg 0530 HAILEY Administration Polyethylene Glycol 17 gm 03/31/20 09:00 04/06/20 08:35 Miralax PO 17 gm DAILY HAILEY Administration Sodium Chloride 10 ml 04/01/20 07:17 04/02/20 17:47 Flush - Normal Saline IVF 10 ml PRN PRN Administration Saline Flush Warfarin Sodium 5 mg 04/04/20 17:00 04/05/20 17:26 Coumadin PO 5 mg 1700 HAILEY Administration - Exam General Appearance: NAD, awake alert Eye: PERRL, anicteric sclera ENT: normocephalic atraumatic, no oropharyngeal lesions Neck: supple, symmetric, no JVD, no thyromegaly Heart: RRR, no gallops, no rubs, normal peripheral pulses Respiratory - other findings: diminished bilat, bibasilar crackles Gastrointestinal: soft, non-tender, non-distended, normal bowel sounds Extremities - other findings: 3+ edema in BU/LE's Skin: normal turgor Neurological: cranial nerve grossly intact, no new deficit Musculoskeletal: generalized weakness Musculoskeletal - other findings: Non-ambulatory at baseline Psychiatric: normal affect, A&O x 3 Hosp A/P (1) Acute on chronic diastolic CHF (congestive heart failure) Code(s): I50.33 - ACUTE ON CHRONIC DIASTOLIC (CONGESTIVE) HEART FAILURE Status : Acute Plan: Continue Lasix 80mg IV BID, Zaroxolyn 2.5mg po daily, serial I/O's, Daily weights, Last EF 55-60% (2) Acute respiratory failure with hypoxia and hypercarbia Code(s): J96.01 - ACUTE RESPIRATORY FAILURE WITH HYPOXIA; J96.02 - ACUTE RESPIRATORY FAILURE WITH HYPERCAPNIA Status: Acute Plan: s/p mech ventilation, remains on RA (3) Acute renal failure superimposed on stage 3 chronic kidney disease Code(s): N17.9 - ACUTE KIDNEY FAILURE, UNSPECIFIED; N18.3 - CHRONIC KIDNEY DISEASE, STAGE 3 (MODERATE) Status: Acute Plan: Slow improvement, multifactorial renal failure, avoid nephrotoxic meds and limit contrast exposure (4) Community acquired bacterial pneumonia Code(s): J15.9 - UNSPECIFIED BACTERIAL PNEUMONIA Status: Acute Plan: Continue Cefuroxime (5) Physical deconditioning Code(s): R53.81 - OTHER MALAISE Status: Chronic Plan: PT/OT for functional assessment (6) Chronic anticoagulation Code(s): Z79.01 - SUBMERSIBLE PILOT (CURRENT) USE OF ANTICOAGULANTS Status: Chronic Plan: INR subtherapeutic, increase Coumadin 10mg daily, serial INR (7) Paroxysmal atrial fibrillation Code(s): I48.0 - PAROXYSMAL ATRIAL FIBRILLATION Status: Chronic Plan: V-pacing currently - Plan continue antibiotics, PT/OT, manager social responsibility Stable currently continue Lasix 80mg IV BID Continue Zaroxolyn 2.5mg daily PT/OT for mobilization Increase Coumadin 10mg po daily AM lab: BMP, H/H, PT/INR
[2020-04-06] MEDS: HumaLOG 300 UNITS/3 ML VIAL SC PRN ×2 (12:19→17:16)
[2020-04-06] MEDS: Warfarin Sodium 5 MG TAB PO SCH (16:48)
[2020-04-06] MEDS: Famotidine 20 MG TAB PO SCH (21:01)
[2020-04-06] MEDS: Atorvastatin Calcium 40 MG TAB PO SCH (21:01)
[2020-04-07 04:10] LABS: INR-International Normal Ratio 1.4; Prothrombin Time 17.1 sec (12.0-14.7)
[2020-04-07 04:21] LABS: BUN (Urea Nitrogen) 40 mg/dL (9.8-20.1); Calc. Creatinine Clearance 66 mL/min (70-130); Calcium 8.2 mg/dL (7.8-10.44); Estimated GFR-MDRD 47; Glucose 133 mg/dL (83-110)
[2020-04-07 04:24] LABS: Hemoglobin 8.4 g/dL (12.0-16.0); Platelet Count 343 thou/uL (130-400)
[2020-04-07 04:32] LABS: Anion Gap 17 mmol/L (10-20); Carbon Dioxide 38 mmol/L (23-31); Chloride 88 mmol/L (98-107); Potassium 3.3 mmol/L (3.5-5.1); Sodium 140 mmol/L (136-145)
[2020-04-07] MEDS: Furosemide 100 MG/10 ML VIAL SLOW IVP SCH ×2 (05:50→13:03)
[2020-04-07] MEDS: Metolazone 2.5 MG TAB PO SCH (05:51)
[2020-04-07] MEDS: Ferrous Sulfate 325 MG TAB PO SCH ×3 (08:12→15:45)
[2020-04-07] MEDS: Polyethylene Glycol 3350 17 GM Packet PO SCH (08:12)
--- NOTE | 2020-04-07 12:17 | PDOC.HOSPP ---
- Subjective Encounter Date: 04/07/20 Encounter Time: 12:15 Subjective: f/u for PNA/CHF with resp failure s/p mech ventilation. Remains on room air and overall feels better. Appetite ok. Receiving Lasix with approx 30lb weight loss since admit. - Objective Vital Signs & Weight: Vital Signs (12 hours) Temp Pulse Pulse Resp BP BP BP 04/07/20 11:33 99.2 F 70 16 123/68 04/07/20 09:40 73 125/60 147/64 H 04/07/20 08:08 99.4 F 71 17 126/58 L 04/07/20 04:00 99 F 71 20 BP Pulse Ox 04/07/20 11:33 92 L 04/07/20 09:40 04/07/20 08:08 92 L 04/07/20 04:00 133/63 95 Weight Admit Weight 272 lb 11.2 oz Weight 236 lb 14.4 oz Most Recent Monitor Data Heart Rate from ECG 108 NIBP 125/84 NIBP BP-Mean 97 Respiration from ECG 27 SpO2 96 I&O: 04/06/20 04/07/20 04/08/20 06:59 06:59 06:59 Intake Total 1720 900 Output Total 6800 5600 Balance -5080 -4700 Result Diagrams: 04/07/20 03:27 04/07/20 03:27 Additional Labs: Accuchecks 04/07/20 04/07/20 04/06/20 11:05 05:38 20:01 POC Glucose 156 H 156 H 207 H 04/06/20 04/03/20 17:02 11:56 POC Glucose 163 H 144 H Laboratory Tests 01/08/18 03/08/18 03/30/20 04:00 20:03 17:12 Hgb Potassium BUN Creatinine B-Natriuretic Peptide 204.1 H 171.4 H 997.9 H 04/03/20 04/04/20 04/05/20 10:27 03:33 03:52 Hgb Potassium 3.6 3.0 L BUN 66 H 68 H 58 H Creatinine 1.57 H 1.54 H 1.34 H B-Natriuretic Peptide 04/05/20 03:52 Hgb 7.4 L Potassium BUN Creatinine B-Natriuretic Peptide EKG Reviewed by me: Yes (Tele - SR) Hospitalist ROS - Medication Medications: Active Medications Generic Name Dose Route Start Last Admin Trade Name Freq PRN Reason Stop Dose Admin Acetaminophen 650 mg 03/30/20 20:38 04/06/20 13:29 Tylenol PO 650 mg Q4H PRN Administration Headache/Fever/Mild Pain (1-3) Atorvastatin Calcium 40 mg 04/03/20 21:00 04/06/20 21:01 Lipitor PO 40 mg HS HAILEY Administration Dextrose/Water 25 gm 03/30/20 20:38 03/31/20 10:46 Dextrose 50% SLOW IVP 25 gm PRN PRN Administration Hypoglycemia Famotidine 20 mg 04/04/20 21:00 04/06/20 21:01 Pepcid PO 20 mg QPM HAILEY Administration Ferrous Sulfate 325 mg 04/03/20 17:00 04/07/20 11:36 Feosol PO 325 mg TID-WM HAILEY Administration Furosemide 80 mg 03/31/20 06:00 04/07/20 05:50 Lasix SLOW IVP 80 mg 0600,1400 HALIEY Administration Hydralazine HCl 10 mg 03/30/20 20:33 04/03/20 07:19 Apresoline SLOW IVP 10 mg Q6H PRN Administration SBP GREATER THAN 160 Insulin Human Lispro 0 units 03/30/20 20:38 04/06/20 17:16 Humalog SC 2 unit .MILD SLIDING SCALE PRN Administration Mild Correctional Scale Metolazone 2.5 mg 04/05/20 05:30 04/07/20 05:51 Zaroxolyn PO 2.5 mg 0530 HAILEY Administration Polyethylene Glycol 17 gm 03/31/20 09:00 04/07/20 08:12 Miralax PO Not Given DAILY HAILEY Sodium Chloride 10 ml 04/01/20 07:17 04/02/20 17:47 Flush - Normal Saline IVF 10 ml PRN PRN Administration Saline Flush Warfarin Sodium 10 mg 04/06/20 17:00 04/06/20 16:48 Coumadin PO 10 mg 1700 HAILEY Administration - Exam General Appearance: NAD, awake alert Eye: PERRL, anicteric sclera ENT: normocephalic atraumatic, no oropharyngeal lesions Neck: supple, symmetric, no JVD, no thyromegaly Heart: RRR, no murmur, no gallops, no rubs, normal peripheral pulses Heart - other findings: S1, S2 Respiratory: no wheezes, no tachypnea Respiratory - other findings: diminished in bases bilat Gastrointestinal: soft, non-tender, non-distended, normal bowel sounds Gastrointestinal - other findings: obese Extremities: no cyanosis, 2+ LE edema Skin: normal turgor, no lesions Neurological: cranial nerve grossly intact, no new deficit Musculoskeletal: normal tone, generalized weakness Psychiatric: normal affect, A&O x 3 Hosp A/P (1) Acute on chronic diastolic CHF (congestive heart failure) Code(s): I50.33 - ACUTE ON CHRONIC DIASTOLIC (CONGESTIVE) HEART FAILURE Status : Acute Plan: Continue Lasix 80mg IV q12h, Zaroxolyn 2.5mg daily, serial I/O's, Daily weight (2) Acute respiratory failure with hypoxia and hypercarbia Code(s): J96.01 - ACUTE RESPIRATORY FAILURE WITH HYPOXIA; J96.02 - ACUTE RESPIRATORY FAILURE WITH HYPERCAPNIA Status: Acute Plan: Resolved (3) Acute renal failure superimposed on stage 3 chronic kidney disease Code(s): N17.9 - ACUTE KIDNEY FAILURE, UNSPECIFIED; N18.3 - CHRONIC KIDNEY DISEASE, STAGE 3 (MODERATE) Status: Acute Plan: Improved, continue Lasix and monitor renal function (4) Community acquired bacterial pneumonia Code(s): J15.9 - UNSPECIFIED BACTERIAL PNEUMONIA Status: Acute (5) Physical deconditioning Code(s): R53.81 - OTHER MALAISE Status: Chronic Plan: PT for mobilization (6) Chronic anticoagulation Code(s): Z79.01 - TRAILER CHIEF (CURRENT) USE OF ANTICOAGULANTS Status: Chronic Plan: Continue Coumadin 10mg daily, INR subtherapeutic currently 1.4 (7) Paroxysmal atrial fibrillation Code(s): I48.0 - PAROXYSMAL ATRIAL FIBRILLATION Status: Chronic - Plan PT/OT, group social worker, out of bed/ambulate Stable currently continue Lasix 80mg IV BID Continue Zaroxolyn 2.5mg daily PT/OT for mobilization Increase Coumadin 10mg po daily AM lab: BMP, H/H, PT/INR
[2020-04-07] MEDS: Warfarin Sodium 5 MG TAB PO SCH (15:46)
[2020-04-07] MEDS: Famotidine 20 MG TAB PO SCH (21:24)
[2020-04-07] MEDS: Atorvastatin Calcium 40 MG TAB PO SCH (21:24)
[2020-04-08 05:07] LABS: BUN (Urea Nitrogen) 35 mg/dL (9.8-20.1); Calc. Creatinine Clearance 61 mL/min (70-130); Calcium 8.3 mg/dL (7.8-10.44); Estimated GFR-MDRD 45; Glucose 110 mg/dL (83-110)
[2020-04-08 05:15] LABS: INR-International Normal Ratio 1.6; Prothrombin Time 19.3 sec (12.0-14.7)
[2020-04-08 05:17] LABS: Anion Gap 19 mmol/L (10-20); Carbon Dioxide 40 mmol/L (23-31); Chloride 83 mmol/L (98-107); Sodium 139 mmol/L (136-145)
[2020-04-08 05:19] LABS: Potassium 2.9 mmol/L (3.5-5.1)
[2020-04-08] MEDS ORDERED: Potassium Chloride 20 MEQ TAB PO SCH (06:15)
[2020-04-08] MEDS: Furosemide 100 MG/10 ML VIAL SLOW IVP SCH ×2 (06:28→13:44)
[2020-04-08] MEDS: Metolazone 2.5 MG TAB PO SCH (06:28)
[2020-04-08] MEDS: Polyethylene Glycol 3350 17 GM Packet PO SCH (08:33)
[2020-04-08] MEDS: Ferrous Sulfate 325 MG TAB PO SCH ×3 (08:33→16:20)
--- NOTE | 2020-04-08 11:10 | PDOC.HOSPP ---
- Subjective Encounter Date: 04/08/20 Encounter Time: 11:00 Subjective: f/u for CHF/PNA on IV Lasix diuresing well. Overall feeling much better. Elliott leaking and was removed per nursing. - Objective Vital Signs & Weight: Vital Signs (12 hours) Temp Pulse Resp BP Pulse Ox 04/08/20 07:05 97.9 F 70 16 117/58 L 92 L 04/08/20 03:50 98.2 F 69 18 141/65 H 93 L 04/08/20 00:44 91 L Weight Admit Weight 272 lb 11.2 oz Weight 229 lb 14.4 oz Most Recent Monitor Data Heart Rate from ECG 108 NIBP 125/84 NIBP BP-Mean 97 Respiration from ECG 27 SpO2 96 I&O: 04/07/20 04/08/20 04/09/20 06:59 06:59 06:59 Intake Total 900 240 Output Total 5600 2200 350 Balance -4700 -1960 -350 Result Diagrams: 04/07/20 03:27 04/08/20 03:59 Additional Labs: Accuchecks 04/08/20 04/08/20 04/07/20 10:46 06:25 20:03 POC Glucose 204 H 128 H 195 H 04/07/20 04/07/20 16:45 11:05 POC Glucose 134 H 156 H Laboratory Tests 01/08/18 03/08/18 03/30/20 04:00 20:03 17:12 Hgb Potassium BUN Creatinine B-Natriuretic Peptide 204.1 H 171.4 H 997.9 H 04/03/20 04/04/20 04/05/20 10:27 03:33 03:52 Hgb Potassium 3.6 3.0 L BUN 66 H 68 H 58 H Creatinine 1.57 H 1.54 H 1.34 H B-Natriuretic Peptide 04/05/20 03:52 Hgb 7.4 L Potassium BUN Creatinine B-Natriuretic Peptide EKG Reviewed by me: Yes (Tele - SR) Hospitalist ROS - Medication Medications: Active Medications Generic Name Dose Route Start Last Admin Trade Name Freq PRN Reason Stop Dose Admin Acetaminophen 650 mg 03/30/20 20:38 04/06/20 13:29 Tylenol PO 650 mg Q4H PRN Administration Headache/Fever/Mild Pain (1-3) Atorvastatin Calcium 40 mg 04/03/20 21:00 04/07/20 21:24 Lipitor PO 40 mg HS HAILEY Administration Dextrose/Water 25 gm 03/30/20 20:38 03/31/20 10:46 Dextrose 50% SLOW IVP 25 gm PRN PRN Administration Hypoglycemia Famotidine 20 mg 04/04/20 21:00 04/07/20 21:24 Pepcid PO 20 mg QPM HAILEY Administration Ferrous Sulfate 325 mg 04/03/20 17:00 04/08/20 08:33 Feosol PO 325 mg TID-WM HAILEY Administration Hydralazine HCl 10 mg 03/30/20 20:33 04/03/20 07:19 Apresoline SLOW IVP 10 mg Q6H PRN Administration SBP GREATER THAN 160 Insulin Human Lispro 0 units 03/30/20 20:38 04/06/20 17:16 Humalog SC 2 unit .MILD SLIDING SCALE PRN Administration Mild Correctional Scale Metolazone 2.5 mg 04/05/20 05:30 04/08/20 06:28 Zaroxolyn PO 2.5 mg 0530 HAILEY Administration Polyethylene Glycol 17 gm 03/31/20 09:00 04/08/20 08:33 Miralax PO Not Given DAILY HAILEY Sodium Chloride 10 ml 04/01/20 07:17 04/02/20 17:47 Flush - Normal Saline IVF 10 ml PRN PRN Administration Saline Flush Warfarin Sodium 10 mg 04/06/20 17:00 04/07/20 15:46 Coumadin PO 10 mg 1700 HAILEY Administration - Exam General Appearance: NAD, awake alert Eye: PERRL, anicteric sclera ENT: normocephalic atraumatic, no oropharyngeal lesions Neck: supple, symmetric, no JVD, no thyromegaly Heart: RRR, no murmur, no gallops, no rubs, normal peripheral pulses Respiratory: no tachypnea Respiratory - other findings: few basilar coarse sounds o/w clear Gastrointestinal: soft, non-tender, non-distended, normal bowel sounds, no palpable masses Gastrointestinal - other findings: obese Extremities: no cyanosis, no clubbing, 2+ LE edema Skin: normal turgor, no lesions Neurological: cranial nerve grossly intact, no new deficit Musculoskeletal: normal tone, generalized weakness Psychiatric: normal affect, A&O x 3 Hosp A/P (1) Acute on chronic diastolic CHF (congestive heart failure) Code(s): I50.33 - ACUTE ON CHRONIC DIASTOLIC (CONGESTIVE) HEART FAILURE Status : Acute Plan: Continue IV Lasix another 24-48h and monitor daily weight (2) Acute respiratory failure with hypoxia and hypercarbia Code(s): J96.01 - ACUTE RESPIRATORY FAILURE WITH HYPOXIA; J96.02 - ACUTE RESPIRATORY FAILURE WITH HYPERCAPNIA Status: Acute Plan: Remains on Room Air (3) Acute renal failure superimposed on stage 3 chronic kidney disease Code(s): N17.9 - ACUTE KIDNEY FAILURE, UNSPECIFIED; N18.3 - CHRONIC KIDNEY DISEASE, STAGE 3 (MODERATE) Status: Acute Plan: Improved with diuresis (4) Community acquired bacterial pneumonia Code(s): J15.9 - UNSPECIFIED BACTERIAL PNEUMONIA Status: Acute (5) Physical deconditioning Code(s): R53.81 - OTHER MALAISE Status: Chronic Plan: PT for mobilization, plans to return home, likely will need HH/PT (6) Chronic anticoagulation Code(s): Z79.01 - FRONT DESK MANAGER (CURRENT) USE OF ANTICOAGULANTS Status: Chronic Plan: INR 1.6, continue Coumadin 10mg another 24h, repeat INR in am (7) Paroxysmal atrial fibrillation Code(s): I48.0 - PAROXYSMAL ATRIAL FIBRILLATION Status: Chronic - Plan 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
[2020-04-08] MEDS: Potassium Chloride 20 MEQ TAB PO SCH (16:20)
[2020-04-08] MEDS: Warfarin Sodium 5 MG TAB PO SCH (16:21)
[2020-04-08] MEDS ORDERED: Warfarin Sodium 2.5 MG TAB PO SCH (17:00)
[2020-04-08] MEDS: Famotidine 20 MG TAB PO SCH (21:42)
[2020-04-08] MEDS: Atorvastatin Calcium 40 MG TAB PO SCH (21:42)
[2020-04-09 04:58] LABS: BUN (Urea Nitrogen) 33 mg/dL (9.8-20.1); Calc. Creatinine Clearance 52 mL/min (70-130); Calcium 8.4 mg/dL (7.8-10.44); Estimated GFR-MDRD 39; Glucose 105 mg/dL (83-110)
[2020-04-09 05:07] LABS: Anion Gap 18 mmol/L (10-20); Chloride 83 mmol/L (98-107); Potassium 3.4 mmol/L (3.5-5.1); Sodium 139 mmol/L (136-145)
[2020-04-09 05:11] LABS: Carbon Dioxide 41 mmol/L (23-31)
[2020-04-09 05:23] LABS: Prothrombin Time 22.6 sec (12.0-14.7)
[2020-04-09] MEDS: Metolazone 2.5 MG TAB PO SCH (05:24)
[2020-04-09] MEDS: Furosemide 100 MG/10 ML VIAL SLOW IVP SCH (05:24)
--- NOTE | 2020-04-09 05:28 | PDOC.EVN ---
Event Note - Event Note Event Note: RN called - Bicarb 41. Will reduce Lasix to 40 mg daily from BID
[2020-04-09] MEDS ORDERED: Furosemide 40 MG/4 ML VIAL SLOW IVP SCH (05:45)
[2020-04-09] MEDS: Potassium Chloride 20 MEQ TAB PO SCH ×2 (09:08→16:34)
[2020-04-09] MEDS: Polyethylene Glycol 3350 17 GM Packet PO SCH (09:09)
[2020-04-09] MEDS: Ferrous Sulfate 325 MG TAB PO SCH ×3 (09:09→16:35)
[2020-04-09] MEDS: Furosemide 40 MG/4 ML VIAL SLOW IVP SCH (09:09)
[2020-04-09] MEDS: HumaLOG 300 UNITS/3 ML VIAL SC PRN (11:41)
--- NOTE | 2020-04-09 12:33 | PDOC.HOSPP ---
- Subjective Encounter Date: 04/09/20 Encounter Time: 12:20 Subjective: f/u for CHF and volume overload diuresed with Lasix and 48lb weight loss since admit. Feels much better overall and more alert, moving upper extremities easier. - Objective Vital Signs & Weight: Vital Signs (12 hours) Temp Pulse Resp BP Pulse Ox 04/09/20 11:36 98.1 F 55 L 24 H 133/60 93 L 04/09/20 07:50 97.9 F 70 20 169/91 H 91 L 04/09/20 03:11 98.2 F 70 18 135/63 92 L Weight Admit Weight 272 lb 11.2 oz Weight 224 lb Most Recent Monitor Data Heart Rate from ECG 108 NIBP 125/84 NIBP BP-Mean 97 Respiration from ECG 27 SpO2 96 I&O: 04/08/20 04/09/20 04/10/20 06:59 06:59 06:59 Intake Total 240 720 Output Total 2200 1700 600 Balance -1960 -980 -600 Result Diagrams: 04/07/20 03:27 04/09/20 04:21 Additional Labs: Accuchecks 04/09/20 04/09/20 04/08/20 10:46 06:04 20:43 POC Glucose 182 H 131 H 153 H 04/08/20 16:19 POC Glucose 140 H Laboratory Tests 01/08/18 03/08/18 03/30/20 04:00 20:03 17:12 Hgb Potassium BUN Creatinine B-Natriuretic Peptide 204.1 H 171.4 H 997.9 H 04/03/20 04/04/20 04/05/20 10:27 03:33 03:52 Hgb Potassium 3.6 3.0 L BUN 66 H 68 H 58 H Creatinine 1.57 H 1.54 H 1.34 H B-Natriuretic Peptide 04/05/20 03:52 Hgb 7.4 L Potassium BUN Creatinine B-Natriuretic Peptide EKG Reviewed by me: Yes (Tele - SR) Hospitalist ROS - Medication Medications: Active Medications Generic Name Dose Route Start Last Admin Trade Name Freq PRN Reason Stop Dose Admin Acetaminophen 650 mg 03/30/20 20:38 04/06/20 13:29 Tylenol PO 650 mg Q4H PRN Administration Headache/Fever/Mild Pain (1-3) Atorvastatin Calcium 40 mg 04/03/20 21:00 05/11/20 21:42 Lipitor PO 40 mg HS HAILEY Administration Dextrose/Water 25 gm 03/30/20 20:38 03/31/20 10:46 Dextrose 50% SLOW IVP 25 gm PRN PRN Administration Hypoglycemia Famotidine 20 mg 04/04/20 21:00 04/08/20 21:42 Pepcid PO 20 mg QPM HAILEY Administration Ferrous Sulfate 325 mg 04/03/20 17:00 04/09/20 11:39 Feosol PO 325 mg TID-WM HAILEY Administration Furosemide 40 mg 04/09/20 09:00 04/09/20 09:09 Lasix SLOW IVP 40 mg DAILY HAILEY Administration Hydralazine HCl 10 mg 03/30/20 20:33 04/03/20 07:19 Apresoline SLOW IVP 10 mg Q6H PRN Administration SBP GREATER THAN 160 Insulin Human Lispro 0 units 03/30/20 20:38 04/09/20 11:41 Humalog SC 2 unit .MILD SLIDING SCALE PRN Administration Mild Correctional Scale Polyethylene Glycol 17 gm 03/31/20 09:00 04/09/20 09:09 Miralax PO Not Given DAILY HAILEY Potassium Chloride 40 meq 04/08/20 17:00 04/09/20 09:08 K-Dur PO 40 meq BID-WM HAILEY Administration Sodium Chloride 10 ml 04/01/20 07:17 04/02/20 17:47 Flush - Normal Saline IVF 10 ml PRN PRN Administration Saline Flush - Exam General Appearance: NAD, awake alert Eye: PERRL, anicteric sclera ENT: normocephalic atraumatic, no oropharyngeal lesions Neck: supple, symmetric, no JVD, no thyromegaly Heart: RRR, no murmur, no gallops, no rubs, normal peripheral pulses Respiratory: CTAB, no wheezes, no rales, no ronchi, normal chest expansion Gastrointestinal: soft, non-tender, non-distended, normal bowel sounds, no palpable masses Extremities: no cyanosis, 2+ LE edema Skin: normal turgor Neurological: cranial nerve grossly intact, no new deficit Musculoskeletal: normal tone, generalized weakness Psychiatric: normal affect, A&O x 3 Hosp A/P (1) Acute on chronic diastolic CHF (congestive heart failure) Code(s): I50.33 - ACUTE ON CHRONIC DIASTOLIC (CONGESTIVE) HEART FAILURE Status : Acute Plan: Decrease Lasix 40mg IV daily, d/c Zaroxolyn (2) Acute respiratory failure with hypoxia and hypercarbia Code(s): J96.01 - ACUTE RESPIRATORY FAILURE WITH HYPOXIA; J96.02 - ACUTE RESPIRATORY FAILURE WITH HYPERCAPNIA Status: Acute (3) Acute renal failure superimposed on stage 3 chronic kidney disease Code(s): N17.9 - ACUTE KIDNEY FAILURE, UNSPECIFIED; N18.3 - CHRONIC KIDNEY DISEASE, STAGE 3 (MODERATE) Status: Acute (4) Community acquired bacterial pneumonia Code(s): J15.9 - UNSPECIFIED BACTERIAL PNEUMONIA Status: Acute (5) Physical deconditioning Code(s): R53.81 - OTHER MALAISE Status: Chronic (6) Chronic anticoagulation Code(s): Z79.01 - [facility] (CURRENT) USE OF ANTICOAGULANTS Status: Chronic (7) Paroxysmal atrial fibrillation Code(s): I48.0 - PAROXYSMAL ATRIAL FIBRILLATION Status: Chronic - Plan PT/OT, social media marketing specialist, respiratory therapy, DVT proph w/SCDs Stable currently Decrease Lasix 40mg IV daily D/C Zaroxolyn PT/OT for mobilization Decrease Coumadin 5mg daily KCL 40meq BID AM lab: BMP, H/H, PT/INR CM for SNF options Likely d/c in 24-48h
[2020-04-09] MEDS: Warfarin Sodium 5 MG TAB PO SCH (16:35)
[2020-04-09] MEDS: Atorvastatin Calcium 40 MG TAB PO SCH (20:17)
[2020-04-09] MEDS: Famotidine 20 MG TAB PO SCH (20:18)
[2020-04-10 05:03] LABS: INR-International Normal Ratio 2.1; Prothrombin Time 23.3 sec (12.0-14.7)
[2020-04-10 05:09] LABS: BUN (Urea Nitrogen) 33 mg/dL (9.8-20.1); Calc. Creatinine Clearance 45 mL/min (70-130); Calcium 8.3 mg/dL (7.8-10.44); Estimated GFR-MDRD 34; Glucose 96 mg/dL (83-110)
[2020-04-10 05:18] LABS: Anion Gap 18 mmol/L (10-20); Carbon Dioxide 39 mmol/L (23-31); Chloride 87 mmol/L (98-107); Potassium 3.6 mmol/L (3.5-5.1); Sodium 140 mmol/L (136-145)
[2020-04-10] MEDS: Potassium Chloride 20 MEQ TAB PO SCH ×2 (08:15→16:00)
[2020-04-10] MEDS: Ferrous Sulfate 325 MG TAB PO SCH ×3 (08:15→16:00)
[2020-04-10] MEDS: Furosemide 40 MG/4 ML VIAL SLOW IVP SCH (08:15)
[2020-04-10] MEDS: Polyethylene Glycol 3350 17 GM Packet PO SCH (08:22)
[2020-04-10] MEDS: HumaLOG 300 UNITS/3 ML VIAL SC PRN (11:19)
[2020-04-10 15:59] VITALS: TEMP 98.4
[2020-04-10] MEDS: Warfarin Sodium 5 MG TAB PO SCH (16:01)
[2020-04-10 16:28] VITALS: BP 144/71
--- NOTE | 2020-04-11 03:39 | DIS ---
DATE OF ADMISSION: 03/30/2020 DATE OF DISCHARGE: 04/10/2020 DISCHARGE DIAGNOSES: 1. Acute on chronic diastolic congestive heart failure with preserved ejection fraction of 55% to 60%. 2. Acute hypoxic hypercapnic respiratory failure, resolved. 3. Acute renal failure superimposed on chronic kidney disease, stage 3, improved. 4. Community-acquired bacterial pneumonia, suspected gram-positive cocci, resolving. 5. Physical deconditioning, chronic. 6. Chronic anticoagulation with Coumadin. 7. Paroxysmal atrial fibrillation, chronic. CONSULTATIONS: 1. Dr. Razo with Cardiology Service. 2. Palliative Care Service. PERTINENT LABORATORY AND X-RAY FINDINGS: Creatinine ranged between 1.11 to 1.64, estimated GFR ranged between 31 to 47, BNP 998, previously 171 on 03/08/2018. Serum cortisol level 21.1. CBC showed a white blood cell count ranging between 8.4 to 18.0. Hemoglobin ranged between 6.4 to 8.4, MCV 82. PT 23.3, INR 2.1, 04/10/2020. COVID-19 PCR not detected, 03/30/2020. Blood cultures x2 dated 03/30/2020 showed no growth at 5 days. Urine culture dated 03/31/2020 showed less than 10,000 colonies of gram-negative rods. Portable chest x-ray dated 03/30/2020 showed interval placement of endotracheal tube. Bilateral pleural effusions noted with bibasilar atelectasis. 2D transthoracic echocardiogram dated 04/02/2020 showed ejection fraction 55% to 60%. Grade 2 diastolic dysfunction noted. Severe left atrial enlargement. Moderate tricuspid regurgitation. HOSPITAL COURSE: The patient initially presented with increasing shortness of breath in the context of known congestive heart failure. The patient initially with hypoxic hypercapnic respiratory failure decompensating after diuretic therapy with IV Lasix. The patient required mechanical ventilation and Critical Care Unit admission. 2D transthoracic echocardiogram showed overall preserved ejection fraction with grade 2 diastolic dysfunction. The patient was treated with IV diuretic therapy and monitored for clinical response. The patient was also initiated on IV Zithromax and Rocephin after concern for potential infectious process given chest imaging findings. The patient was ruled out for COVID-19 by PCR analysis as stated previously. The patient slowly transitioned out of the Critical Care Unit and maintained O2 saturations on oxygen supplementation. The patient continued to receive IV diuretic therapy in addition to Zaroxolyn with an approximate 52-pound weight loss during her hospital course. The patient clinically stabilized with diuretic therapy with decreasing edema of all extremities. Due to the patient's deconditioned status and comorbid conditions, was deemed an appropriate candidate for ongoing skilled care. The patient has been approved to transfer to [facility] and will transfer on 04/10/2020. I have examined the patient at the time of discharge and discussed followup instructions. The patient verbalized understanding and agreement and ready for discharge, 04/10/2020. DISCHARGE MEDICATIONS: 1. Lipitor 40 mg p.o. at bedtime. 2. Ferrous sulfate 325 mg p.o. t.i.d. 3. Clonidine 0.1 mg p.o. b.i.d.. 4. Pepcid 20 mg p.o. at bedtime. 5. Lasix 20 mg p.o. b.i.d. 6. Toprol-XL 25 mg p.o. daily. 7. MiraLAX 17 g p.o. daily p.r.n. 8. K-Dur 40 mEq p.o. b.i.d. 9. Coumadin 5 mg p.o. daily with goal INR of 2 to 3. FOLLOWUP: The patient may follow up with Dr. Razo with Cardiology Service. The patient may follow up at [facility] after discharge from [facility]. CONDITION ON DISCHARGE: Fair. ACTIVITY: Ad-kenny. Maximal assistance with standing. High fall risk precautions. DIET: ADA and heart healthy. CODE STATUS: Full. DISPOSITION: Discharged to [facility], 04/10/2020. TIME SPENT: Total time preparing and coordinating discharge, 36 minutes. Job ID: [id number]
--- NOTE | 2020-04-11 08:29 | PQF ---
EDMAR HERNANDEZ CHARLES DO [id number] JEFERSON OVALLE [id number] CLINICAL DOCUMENTATION CLARIFICATION FORM: POST DISCHARGE Addendum to original discharge summary date: ____ Late entry note date: __ DATE: 04/11/2020 ATTN: Shaquille Rodgers Please exercise your independent, professional judgment in responding to the clarification form. Clinical indicators are provided on the bottom of this form for your review In your clinical opinion based on clinical findings below, can you please identify the etioloyg of Acute Respiratory Failure if due to: Please check appropriate box(s): [ ] Sepsis with Pneumonia [ x ] CHF exacerbation [ ] Other diagnosis [ ] Unable to determine For continuity of documentation, please document condition throughout progress notes and discharge summary. Thank You. CLINICAL INDICATORS - SIGNS / SYMPTOMS / LABS Laboratory 03/30 WBC 18.0, Plt count 903, Neutrophils 80.7, Lactic acid 1.6, BNP 997.9, Troponin 0.039 ABG 03/30 pH 7.16, pCO2 80.3, pO2 133.3, 97.8 O2 sat, Hct 23.0, hgb 7.9 Blood Culture 03/30 Negative, no growth Vital sign 03/30 BP 160/75, Pulse 75, Resp 28, temp 98.1 H&P p1 03/30 Dr Moya presents to ED for Shortness of breath and worsening pedal edema H&P p1 / Dr Moya In Ed, o2 sat noted at 88% on RA, does not use Oxygen at home H&P p5 03/30 Dr Moya Acute hypoxic and hypercapnic respirably failure ddx including CHF, Pneumonia, covid amongst other causes H&P p5 / Dr Moya Acute on chronic CHF systolic by last EF H&P p5 03/30 Dr Moya Sepsis due to Pneumonia PN p1 5/4 Respiratory failure associated with congestive heart failure RISK FACTORS H&P p1 [age] year-old H&P p1 5/2 DM H&P p2 / Afib H&P p2 /2 Asthma H&P p2 /2 HTN H&P p2 /2 CAD H&P p2 /2 CLEMENCIA H&P p5 03/30 CHF exacerbation H&P p5 03/30 Pneumonia H&P p5 03/30 Sepsis TREATMENTS: Respiratory panel 03/30 Intubated on Mechanical Ventilator JAN 31 DuoNeb 3ml neb JAN 31 Aspirin 325 mg oral MAR 03/30 IV Zithromax 500 mg JAN 31 IV Rocephim 2gm JAN 31 IV lasix 40 mg ABG 04/17 Blood Culture 03/30 Chest x-ray 03/30 Cardiology consult 03/31 Clemente Rust (This form is maintained as a part of the permanent medical record) 2014 [email or web address], [employer]. All Rights Reserved [email or web address]
--- NOTE | 2020-04-11 16:11 | EKG ---
Test Reason : SOB Blood Pressure : / mmHG Vent. Rate : 073 BPM Atrial Rate : 073 BPM P-R Int : 000 ms QRS Dur : 126 ms QT Int : 400 ms P-R-T Axes : 000 -69 093 degrees QTc Int : 440 ms Ventricular-paced rhythm Abnormal ECG Confirmed by ДМИТРИЙ MURRIETA ([id number]), news video editor POPPY VALENCIA ([id number]) on 04/11/2020 4:10:53 PM Referred By: GLENNY Confirmed By:ДМИТРИЙ MURRIETA
== END 2020-04-10 17:15 | DRG 208 ==
LOC: ERS 16:20 → 2SW 19:22 → ERHOLD 21:14 → CCU 03-31 → 2NO 04-03 16:29
PROVIDERS: ADMIT Internal Medicine; ATTEND Internal Medicine
PROC: 5A1945Z Respiratory Ventilation, 24-96 Consecutive Hours (ICD-10-PCS; principal; 2020-03-30)
PROC: 0BH17EZ Insertion of Endotracheal Airway into Trachea, Via Natural or Artificial Opening (ICD-10-PCS; 2020-03-30)
PROC: 8E0ZXY6 Isolation (ICD-10-PCS; 2020-03-30)
PROC: 30233N1 Transfusion of Nonautologous Red Blood Cells into Peripheral Vein, Percutaneous Approach (ICD-10-PCS; 2020-04-01)
DX: J96.01 Acute respiratory failure with hypoxia (principal); A41.9 Sepsis, unspecified organism; J18.9 Pneumonia, unspecified organism; I50.43 Acute on chronic combined systolic (congestive) and diastolic (congestive) heart failure; J44.0 Chronic obstructive pulmonary disease with (acute) lower respiratory infection; Z68.41 Body mass index [BMI] 40.0-44.9, adult; N17.9 Acute kidney failure, unspecified; N39.0 Urinary tract infection, site not specified; I13.0 Hypertensive heart and chronic kidney disease with heart failure and stage 1 through stage 4 chronic kidney disease, or unspecified chronic kidney disease; E87.2 Acidosis; J96.02 Acute respiratory failure with hypercapnia; Y84.6 Urinary catheterization as the cause of abnormal reaction of the patient, or of later complication, without mention of misadventure at the time of the procedure; Z20.828 Contact with and (suspected) exposure to other viral communicable diseases; I25.10 Atherosclerotic heart disease of native coronary artery without angina pectoris; M10.9 Gout, unspecified; G47.33 Obstructive sleep apnea (adult) (pediatric); D69.6 Thrombocytopenia, unspecified; R79.1 Abnormal coagulation profile; E11.649 Type 2 diabetes mellitus with hypoglycemia without coma; E66.01 Morbid (severe) obesity due to excess calories; N18.3 Chronic kidney disease, stage 3 (moderate); E11.22 Type 2 diabetes mellitus with diabetic chronic kidney disease; D63.1 Anemia in chronic kidney disease; E11.621 Type 2 diabetes mellitus with foot ulcer; L97.519 Non-pressure chronic ulcer of other part of right foot with unspecified severity; I08.1 Rheumatic disorders of both mitral and tricuspid valves; I48.0 Paroxysmal atrial fibrillation; J38.3 Other diseases of vocal cords; E11.65 Type 2 diabetes mellitus with hyperglycemia; S91.109D Unspecified open wound of unspecified toe(s) without damage to nail, subsequent encounter; X58.XXXD Exposure to other specified factors, subsequent encounter; Z85.048 Personal history of other malignant neoplasm of rectum, rectosigmoid junction, and anus; Z86.011 Personal history of benign neoplasm of the brain; Z95.0 Presence of cardiac pacemaker; Z90.49 Acquired absence of other specified parts of digestive tract; Z90.710 Acquired absence of both cervix and uterus; Z85.038 Personal history of other malignant neoplasm of large intestine; Z79.899 Other long term (current) drug therapy; Z79.01 Long term (current) use of anticoagulants; T83.031A Leakage of indwelling urethral catheter, initial encounter
CPT/HCPCS: 31500; 36415; 36416; 36430; 51702; 71045; 80048; 80053; 81001; 82533; 82550; 82553; 82805; 83605; 83735; 83880; 84484; 85014; 85018; 85025; 85049; 85610; 85730; 86850; 86900; 86901; 87040; 87086; 87635; 93005; 93306; 93798; 94003; 94660; 96365; 96367; 96375; 99292; J0360; J0456; J0696; J1644; J1720; J1940; J2704; J2920; J3490; J7050; P9016; S0028; U0003

== ENCOUNTER 2020-06-24 13:40 | Emergency (ER) | payer MEDICARE ==
--- NOTE | 2020-06-24 14:24 | CT ---
EXAM: CT face without contrast HISTORY: Left facial swelling COMPARISON: None TECHNIQUE: Multiple contiguous axial images were obtained and a CT of the face without contrast. Sagi ttal and coronal reformats were performed. FINDINGS: No facial fractures are identified. Minimal left facial soft tissue swelling is seen. The globes and retrobulbar soft tissues are unremarkable. The visualized paranasal sinuses are well aerated without evidence of opacification. The mastoid air cells are well aerated. Visualized intracranial structures are unremarkable. IMPRESSION: No evidence of facial fracture
--- NOTE | 2020-06-24 14:24 | CT ---
CT Brain WO Con: 06/24/2020 2:01 PM CLINICAL HISTORY: History of left-sided facial swelling and weakness. IMAGING TECHNIQUE: Multiple CT images were obtained of the brain without IV contrast. COMPARISON: Prior CT the brain dated March 08, 2018 FINDINGS: BRAIN: Evidence of acute infarct: None. Evidence of chronic ischemic change:There is stable moderate to severe chronic small vessel white mat ter ischemic change. Evidence of intracranial hemorrhage: None. Evidence of midline shift: Third ventricle and septum pellucidum are midline. Ventricles: Normal. No hydrocephalus. SKULL: There is stable post procedural change of a right frontal craniotomy. Extra-axial calcificati ons underlying the craniotomy flap is stable. VISUALIZED PARANASAL SINUSES: Clear. MASTOID AIR CELLS: Clear. EXTRACRANIAL SOFT TISSUES: Normal. IMPRESSION: No acute intracranial abnormality.
== END 2020-06-24 16:05 | disposition home or self-care (01) ==
LOC: ERS 13:40
DX: R22.0 Localized swelling, mass and lump, head (principal); I25.10 Atherosclerotic heart disease of native coronary artery without angina pectoris; I48.91 Unspecified atrial fibrillation; E11.9 Type 2 diabetes mellitus without complications; I10 Essential (primary) hypertension; E66.9 Obesity, unspecified; Z79.899 Other long term (current) drug therapy; J45.909 Unspecified asthma, uncomplicated
CPT/HCPCS: 70450; 70486

== ENCOUNTER 2020-06-26 15:44 | Observation (INO) | payer MEDICARE, OTHER ==
[2020-06-26] MEDS ORDERED: Nitroglycerin 2% Ointment 1 INCH/1 GM Packet ONE (16:14)
--- NOTE | 2020-06-26 16:44 | RAD ---
Chest one view HISTORY: Chest pain. COMPARISON: 04/06/2020. FINDINGS: Cardiac silhouette is magnified and upper limits of normal in size. Pulmonary vasculature i s unremarkable. Patient is slightly rotated leftward. There is calcification in the arterial structures. No lobar consolidation or evidence of pneumothorax. IMPRESSION : Atherosclerosis. Chronic-type findings are stable. No active cardiopulmonary abnormalities are demons trated.
[2020-06-26 16:45] LABS: #Lymphocytes 0.8 thou/uL (1.20-3.40); #Monocytes 1.6 thou/uL (0.11-0.59); #Neutrophils 14.2 thou/uL (1.40-6.50); %Basophils 0.1 % (0.0-1.0); %Eosinophils 0.3 % (0.0-10.0); %Lymphocytes 4.9 % (21.0-51.0); %Monocytes 9.3 % (0.0-10.0); %Neutrophils 85.4 % (42.0-75.0); Hemoglobin 12.5 g/dL (12.0-16.0); Mean Corpuscular HGB CONC 29.9 g/dL (32.0-36.0); Mean Corpuscular Hemoglobin 25.5 pg (27.0-31.0); Mean Corpuscular Volume 85.4 fL (78.0-98.0); Mean Platelet Volume 9.5 fL (7.4-10.4); Platelet Count 411 thou/uL (130-400); RBC Distribution Width 14.1 % (11.5-14.5); White Blood Cell (WBC) Count 16.7 thou/uL (4.8-10.8)
[2020-06-26 16:51] LABS: PTT 62.9 sec (22.9-36.1); Prothrombin Time 45.1 sec (12.0-14.7)
[2020-06-26 16:54] LABS: INR-International Normal Ratio 4.9
[2020-06-26 17:05] LABS: ALT (SGPT) 8 U/L (8-55); AST (SGOT) 12 U/L (5-34); Albumin 2.9 g/dL (3.4-4.8); Alkaline Phosphatase 113 U/L (40-110); Anion Gap 14 mmol/L (10-20); BUN (Urea Nitrogen) 30 mg/dL (9.8-20.1); Bilirubin, Total 0.3 mg/dL (0.2-1.2); CK (CPK) 11 U/L (29-168); Calc. Creatinine Clearance 0 mL/min (70-130); Calcium 8.5 mg/dL (7.8-10.44); Carbon Dioxide 25 mmol/L (23-31); Chloride 102 mmol/L (98-107); Estimated GFR-MDRD 37; Globulin 3.7 g/dL (2.4-3.5); Glucose 173 mg/dL (83-110); Lipase 43 U/L (8-78); Potassium 4.6 mmol/L (3.5-5.1); Protein, Total 6.6 g/dL (6.0-8.3); Sodium 136 mmol/L (136-145)
[2020-06-26 17:27] LABS: CKMB 0.6 ng/mL (0-6.6)
[2020-06-26] MEDS ORDERED: Nitroglycerin 0.4 MG TAB (25 Tab Bottle) PO PRN (18:54)
[2020-06-26] MEDS ORDERED: Dextrose 5% in Water 1,000 ML IV PRN (18:58)
[2020-06-26] MEDS ORDERED: Dextrose 50% Abboject 50 ML SYRINGE SLOW IVP PRN (18:58)
[2020-06-26] MEDS ORDERED: HumaLOG 300 UNITS/3 ML VIAL SC PRN ×2 (18:58)
[2020-06-26] MEDS ORDERED: Sodium Chloride 0.9% 1,000 ML IV SCH (19:00)
[2020-06-26] MEDS ORDERED: Acetaminophen 650 MG Suppository PR PRN (19:00)
[2020-06-26] MEDS ORDERED: Calcium Carbonate 500 MG ChewTAB PO PRN (19:00)
[2020-06-26] MEDS ORDERED: Ondansetron PF 4 MG/2 ML Vial IVP PRN (19:00)
[2020-06-26] MEDS ORDERED: Senokot S 8.6-50 MG TAB PO PRN (19:00)
[2020-06-26] MEDS ORDERED: Ondansetron ODT 4 MG TAB PO PRN (19:00)
[2020-06-26] MEDS ORDERED: Acetaminophen 325 MG TAB PO PRN (19:00)
--- NOTE | 2020-06-26 20:05 | HP ---
PRIMARY CARE PHYSICIAN: [facility] WALLPAPER INSTALLER: Dr. Razo. CHIEF COMPLAINT: Chest pain. HISTORY OF PRESENT ILLNESS: The patient is an 85-year-old female with a past medical history significant for CHF, atrial fibrillation, on Coumadin, hypertension, hyperlipidemia, diabetes type 2 non-insulin dependent, asthma, CVA x2, who presents to the ER with the above complaint. The patient reports after waking from a nap at approximately 11:00 this morning, she had a sudden onset of chest pain located midsternal. She describes it as severe pressure, constant, exacerbated and relieved by nothing. She reports some associated nausea and shortness of breath. She denies any lightheadedness. She denies any heart palpitations. She denies any recent fever or chills. She has no history of DVT or PE. EMS was called. On arrival , she was given one sublingual nitroglycerin with resolution of her chest pain and a full dose aspirin and brought to the ER. In the ER, she presented afebrile, normotensive, normal heart rate, normal respirations, and 94% on room air. Her EKG was paced at 71 beats per minute. No ST elevations. Her chest x-ray was negative for any acute cardiopulmonary process. Initial troponin 0.037. BNP was 166.1, CK-MB of 0.6, CK of 11. Her BUN was 30, her creatinine was 1.35 and her glucose was 173. PT was 45.1, aPTT of 62.9. INR was 4.9. WBCs 16.7. She was given 1-inch nitroglycerin paste on her chest. She will be admitted to the floor. PAST MEDICAL HISTORY: 1. Hypertension. 2. Hyperlipidemia. 3. Atrial fibrillation, on Coumadin. 4. Diabetes type 2, non-insulin dependent. 5. CHF. 6. Asthma. 7. Gout. 8. Brain tumor. 9. Rectal cancer. 10. CVA x2. PAST SURGICAL HISTORY: 1. Brain tumor surgery. 2. Pacemaker. 3. Ablation in 2014. 4. Colostomy with reversal. 5. Hysterectomy. SOCIAL HISTORY: The patient lives with her family at home. She has no history of smoking, illicit drug use, or alcohol intake. She transfers to a wheelchair. She does not work. FAMILY HISTORY: Significant for cardiac disease. ALLERGIES: NO KNOWN DRUG ALLERGIES. HOME MEDICATIONS: 1. Atorvastatin 40 mg p.o. at bedtime. 2. Warfarin 5 mg p.o. daily. 3. Metoprolol succinate 50 mg p.o. daily. 4. Losartan 25 mg p.o. daily. 5. Lasix 40 mg p.o. daily. REVIEW OF SYSTEMS: All review of systems are negative unless otherwise stated in the HPI. PHYSICAL EXAMINATION: VITAL SIGNS: Temperature 99.2, blood pressure 126/60, heart rate 71, respiratory rate 20, 96% on room air. CONSTITUTIONAL: The patient is alert and oriented to person, place, and time. Comfortable, nontoxic in appearance. HEAD: Atraumatic and normocephalic. EYES: PERRLA. Extraocular muscles intact. ENT: Oropharynx is clear. Uvula midline. Moist mucous membranes. No oral lesions. NECK: Full range of motion. No cervical spinous tenderness. No JVD. No cervical adenopathy. RESPIRATORY/CHEST: Respirations even and nonlabored. Clear to auscultation. No rhonchi, wheezes, or rales. CARDIOVASCULAR: Regular rate and rhythm, 2/6 murmur. No rubs or gallops. ABDOMEN: Soft, nontender, nondistended. Active bowel sounds. No guarding. No rigidity. No rebound. Negative Rovsing sign. Negative Real sign. No abdominal bruit auscultated. BACK: Full range of motion. No central spinous tenderness. No CVA tenderness. EXTREMITIES: Upper extremities; full range of motion, normal strength, sensation intact. Palpable radial pulses. Lower extremities; lower extremities have full range of motion, normal strength, sensation intact. Palpable pedal pulses. No swelling. NEUROLOGIC: The patient is A and O x4. Follows all commands. Moves all extremities well. Unable to assess gait. No focal motor deficits. SKIN: Clean, dry and intact. PSYCHIATRIC: Normal affect. A and O x4. Denies suicidal, homicidal ideation. LABORATORY DATA AND DIAGNOSTIC DATA: EKG paced rhythm. No ST elevation. Chest x-ray negative for any acute cardiopulmonary process. Sodium 136, potassium 4.6 , chloride 102, carbon dioxide 25, BUN 30, creatinine 1.35, glucose 173, calcium 8.5, total bilirubin 0.3, AST 12, ALT 8, alkaline phosphatase 113. Initial troponin 0.037, CK-MB 0.6, CK 11, BNP 166.1, lipase 43. WBC 16.7, hemoglobin 12.5, hematocrit 41.8, platelets 411. Coags; PT is 45.1, aPTT 60.9, INR 4.9. IMPRESSION AND PLAN: 1. Chest pain, rule out acute coronary syndrome. We will admit the patient to the telemetry floor observation status. Expected length of stay less than two midnights. The patient presents with a HEART score of 6, Wells score of 1.5, low risk. We will continue aspirin. We will trend troponins. We will check a mag and a TSH. Consult Cardiology for further input. 2. Acute kidney injury. The patient presented with a creatinine 1.35, baseline appears to be 0.95. We will give gentle IV fluid resuscitation and recheck level in the a.m. 3. Supratherapeutic INR. The patient presents with an INR of 4.9. She is on Coumadin 5 mg daily. She reports that she has not had it checked in quite some time. We will hold Coumadin. We will have pharmacy manage Coumadin dosing and management of INR. 4. Leukocytosis of unclear etiology. Chest x-ray is negative. The patient is afebrile. We will check a UA. We will check blood culture and we will trend the CBC. Covid negative x 2 in past month according to daughter. 5. Atrial fibrillation, on chronic anticoagulation. The patient presents in a paced rhythm. We will continue cardiac monitoring. We will restart Coumadin when INR is within normal range. 6. Diabetes type 2, non-insulin dependent. The patient presents with a blood sugar of 173. We will hold her home antihyperglycemic medications. We will start moderate sliding scale with Accu-Cheks a.c. and at bedtime and a consistent carb diet. 7. Hypertension. The patient presented with normal blood pressure. We will restart the patient's home medications when reconciled by nursing. 8. Hyperlipidemia. We will restart patient's statin when reconciled by nursing. 9. SCDs for deep vein thrombosis prophylaxis. No pharmaco deep venous thrombosis prophylaxis for now with a supratherapeutic INR. The patient is full code. Her surrogate medical decision maker is her daughter, Marisol Bhat, #[phone]. I discussed the code status with not only the patient, but her daughter as well and they confirm she is a full code. 10. Discussed the case with Dr. Diaz. Job ID: [id number] MTDD
[2020-06-26 20:06] LABS: Troponin I 0.059 ng/mL (< 0.028)
[2020-06-26] MEDS ORDERED: Magnesium 2 GM/50 ML 2 GM in Premix Bag 1 BAG IVPB SCH (21:30)
[2020-06-26] MEDS: Famotidine 20 MG TAB PO SCH (23:42)
[2020-06-26] MEDS: Atorvastatin Calcium 40 MG TAB PO SCH (23:42)
[2020-06-26] MEDS: Nitroglycerin 2% Ointment 1 INCH/1 GM Packet TOP SCH (23:43)
[2020-06-27 01:01] LABS: Troponin I 0.043 ng/mL (< 0.028)
[2020-06-27 03:42] VITALS: BMI 35.4
[2020-06-27 04:43] LABS: Prothrombin Time 45.8 sec (12.0-14.7)
[2020-06-27 05:07] LABS: Anion Gap 11 mmol/L (10-20); BUN (Urea Nitrogen) 30 mg/dL (9.8-20.1); Calc. Creatinine Clearance 50 mL/min (70-130); Calcium 8.9 mg/dL (7.8-10.44); Carbon Dioxide 29 mmol/L (23-31); Cardiac Risk 3.6 (Less than 4.5); Chloride 102 mmol/L (98-107); Cholesterol 115 mg/dl (< 200 Desired); Estimated GFR-MDRD 38; Glucose 133 mg/dL (83-110); HDL Cholesterol 32 mg/dL (>60 Neg Risk); LDL Cholesterol, Calculated 64 mg/dL; Potassium 4.4 mmol/L (3.5-5.1); Sodium 138 mmol/L (136-145); Triglycerides 96 mg/dL (Less than 150)
[2020-06-27] MEDS: Nitroglycerin 2% Ointment 1 INCH/1 GM Packet TOP SCH (05:12)
[2020-06-27 05:16] LABS: Band 18 % (5-11); Eosinophils 1 % (0-10); Hemoglobin 12.5 g/dL (12.0-16.0); Lymphocytes 6 % (21-51); MDiff Complete? YES; Mean Corpuscular HGB CONC 29.8 g/dL (32.0-36.0); Mean Corpuscular Hemoglobin 25.5 pg (27.0-31.0); Mean Corpuscular Volume 85.5 fL (78.0-98.0); Mean Platelet Volume 9.7 fL (7.4-10.4); Monocytes 5 % (0-10); Neutrophil 70 % (42-75); Platelet Count 404 thou/uL (130-400); Platelet Morphology Comment Appears Increased; RBC Distribution Width 14.3 % (11.5-14.5); Red Blood Cell (RBC) Count 4.88 mill/uL (4.20-5.40); White Blood Cell (WBC) Count 15.5 thou/uL (4.8-10.8)
[2020-06-27 05:49] LABS: Bilirubin Negative (Negative); Blood, Urine Trace (Negative); Clarity Clear (Clear); Glucose, Urine (Dipstick) Normal (Negative); Ketone, Urine Negative (Negative); Leukocyte 250 Leu/uL (Negative); Nitrite Negative (Negative); Protein, Urine (Dipstick) Negative (Neg-Trace); RBC/HPF 0-3 HPF (0-3); Specific Gravity, Urine 1.014 (1.002-1.036); Squamous Epithelial 0-3 HPF (0-3); Urobilinogen Normal mg/dL (Less than 2)
[2020-06-27 05:56] LABS: Bacteria/HPF 1+ HPF (None Seen)
[2020-06-27] MEDS: Aspirin 81 mg Enteric Coated Tablet PO SCH (08:23)
[2020-06-27] MEDS ORDERED: Prevnar 13-Val Conj/PF 0.5 ML SYRINGE IM ONE (09:00)
[2020-06-27] MEDS ORDERED: Regadenoson 0.4 MG/5 ML SYRINGE ONE (10:30)
[2020-06-27] MEDS: cloNIDine 0.1 MG TAB PO SCH ×2 (10:49→20:05)
[2020-06-27 13:34] LABS: Prothrombin Time 48.3 sec (12.0-14.7)
[2020-06-27 13:38] LABS: INR-International Normal Ratio 5.3
[2020-06-27 14:09] LABS: SARS-CoV-2 MS2 Positive; SARS-CoV-2 N Gene Negative; SARS-CoV-2 S Gene Negative; SARS-CoV-2 by NAA Not Detected (NotDetected); SARS-CoV-2 orf1ab Negative
--- NOTE | 2020-06-27 17:45 | CON ---
DATE OF CONSULTATION: REASON FOR CONSULTATION: Chest pain. HISTORY OF PRESENT ILLNESS: Ms. Rico is a very pleasant 85-year-old woman, whom I have seen and evaluated in the past. She has a previous history of atrial fibrillation. She recently states she had an episode of chest pain. She has not had chest pain in the past for 5 hours. She has not had any recent stress study. PAST MEDICAL HISTORY: Atrial fibrillation, asthma, diabetes mellitus, sleep apnea, mitral regurgitation, gout, hyperlipidemia, hysterectomy, AV crystal ablation, status post pacemaker, cholecystectomy, colon resection, brain surgery. HOME MEDICATIONS: Include; 1. Atorvastatin. 2. Tylenol. 3. Glipizide. 4. Metoprolol. 5. Iron. 6. Albuterol. 7. Coumadin. 8. Losartan. REVIEW OF SYSTEMS: A 10-point review of systems is reviewed as above, otherwise negative. PHYSICAL EXAMINATION: Vital Signs: Blood pressure 130/80, pulse 70, temperature 99. General: The patient is a pleasant woman, in no acute distress, appears stated age. Head, Eyes, Ears, Nose and Throat: Sclerae without icterus. Mouth: Moist mucous membranes, normal palate. Neck: No jugular venous distention. Carotid upstroke is brisk. No bruits bilaterally. Lungs: Clear to auscultation. Heart: Irregularly irregular. Abdomen: Soft, nontender, nondistended. Extremities: No edema. PERTINENT LABORATORY DATA: Hemoglobin 12.5. Creatinine 1.34. GFR 38. IMPRESSION: 1. Atypical chest pain. 2. Chronic atrial fibrillation. RECOMMENDATIONS: Ms. Rico's troponin was felt to be negative. It was slightly elevated, likely due to renal insufficiency. She has a paced rhythm. She has not had any recent stress study. She is currently stable. Recommend noninvasive stress study to assess for any areas of ischemia. If felt to be low risk, would be okay from my standpoint to discharge home with close outpatient followup. If felt to be high risk proceed with coronary angiography. Otherwise, I have no further recommendations. Job ID: [id number]
--- NOTE | 2020-06-27 18:04 | PDOC.HOSPP ---
- Subjective Encounter Date: 06/27/20 Encounter Time: 15:00 Subjective: Patient seen and examined for chest discomfort which has resolved at this time. She denies any palpitations lightheadedness or syncope. No orthopnea reported. - Objective Vital Signs & Weight: Vital Signs (12 hours) Temp Pulse Resp BP Pulse Ox 06/27/20 16:00 97.9 F 70 32 H 128/66 96 06/27/20 08:18 98.9 F 70 16 130/80 95 Weight Weight 226 lb 3.2 oz I&O: 06/26/20 06/27/20 06/28/20 06:59 06:59 06:59 Intake Total 470 Output Total 350 Balance 120 Result Diagrams: 06/28/20 04:21 06/27/20 04:21 Additional Labs: Accuchecks 06/27/20 06/27/20 17:42 05:37 POC Glucose 122 H 143 H Radiology Reviewed by me: Yes (Chest x-ray no infiltrates or significant edema) EKG Reviewed by me: Yes (Paced rhythm) Hospitalist ROS - Review of Systems Gastrointestinal: denies: nausea, vomiting, abdominal pain, diarrhea, constipation, melena, hematochezia, other Genitourinary: denies: dysuria, frequency, incontinence, hematuria, retention, other - Medication Medications: Active Medications Generic Name Dose Route Start Last Admin Trade Name Jeff PRN Reason Stop Dose Admin Aspirin 81 mg 06/27/20 09:00 06/27/20 08:23 Ecotrin PO 81 mg DAILY HAILEY Administration Atorvastatin Calcium 40 mg 06/26/20 21:00 06/26/20 23:42 Lipitor PO 40 mg HS HAILEY Administration Clonidine 0.1 mg 06/27/20 09:00 06/27/20 10:49 Catapres PO Not Given BID HAILEY Famotidine 20 mg 06/26/20 21:00 06/26/20 23:42 Pepcid PO 20 mg QPM HAILEY Administration Metoprolol Succinate 50 mg 06/27/20 09:00 06/27/20 10:49 Toprol Xl PO Not Given DAILY HAILEY Sodium Chloride 10 ml 06/26/20 21:00 06/27/20 08:23 Flush - Normal Saline IVF 10 ml Q12HR HAILEY Administration - Exam General Appearance: NAD Neck: supple, symmetric, no JVD, no thyromegaly Heart: RRR, no gallops, no rubs, normal peripheral pulses Respiratory: CTAB, no wheezes, no ronchi, normal chest expansion Gastrointestinal: soft, non-tender, non-distended, normal bowel sounds, no guarding, no rigidity Extremities: no cyanosis, no clubbing, 1+ LE edema Extremities - other findings: no calf tenderness Neurological: no new deficit Musculoskeletal: normal tone, normal strength, no muscle wasting Psychiatric: normal affect, A&O x 3 Hosp A/P - Plan Chest discomfort rule out acute coronary syndrome Supratherapeutic INR probably due to recent antibiotic useno bleeding Hypertension Chronic atrial fibrillation on anticoagulation Hyperlipidemia Obstructive sleep apnea history of pacemaker Obesity with a BMI of 35.8 CKD stage III Plan: Stress test could not be completed today due to due to IV issues. This will be reattempted tomorrow. Hold warfarin for now due to supratherapeutic INR Continue telemetry monitoring Continue statins along with other home medications including metoprolol. Resume Lasix with potassium. Recheck INR in a.m.
[2020-06-27] MEDS: Famotidine 20 MG TAB PO SCH (20:05)
[2020-06-27] MEDS: Atorvastatin Calcium 40 MG TAB PO SCH (20:05)
[2020-06-27] MEDS: Furosemide 20 MG TAB PO SCH (20:05)
[2020-06-27] MEDS: Potassium Chloride 20 MEQ TAB PO SCH (20:05)
[2020-06-28 05:06] LABS: INR-International Normal Ratio 3.7; Prothrombin Time 36.7 sec (12.0-14.7)
[2020-06-28 05:30] LABS: Hemoglobin 11.9 g/dL (12.0-16.0); Platelet Count 408 thou/uL (130-400)
[2020-06-28] MEDS ORDERED: Regadenoson 0.4 MG/5 ML SYRINGE ONE (11:04)
[2020-06-28] MEDS: Furosemide 20 MG TAB PO SCH (13:15)
[2020-06-28] MEDS: cloNIDine 0.1 MG TAB PO SCH (13:15)
[2020-06-28] MEDS: Aspirin 81 mg Enteric Coated Tablet PO SCH (13:15)
--- NOTE | 2020-06-28 13:29 | NM ---
Radionucleotide stress only myocardial perfusion scan with CT attenuation correction and SPECT imagin g Left ventricular wall motion evaluation and ejection fraction HISTORY: Chest pain. FINDINGS: Lexiscan protocol. There is heterogeneous uptake of radiotracer throughout the left ventric ular myocardium. The non-attenuation correction images best show lack of perfusion defect. QGS analysis of gated SPECT images shows relatively decreased motion of the anterolateral wall.. Ejec tion fraction calculated at greater than 80%. IMPRESSION : No evidence of ischemia. Normal LVEF.
[2020-06-28] MEDS: Potassium Chloride 20 MEQ TAB PO SCH (14:57)
[2020-06-28 15:16] VITALS: BP 135/60; TEMP 98.5
--- NOTE | 2020-06-28 17:17 | DIS ---
DATE OF ADMISSION: 06/26/2020 DATE OF DISCHARGE: 06/28/2020 DISCHARGE DISPOSITION: Home. DISCHARGE INSTRUCTIONS: 1. [facility]. 2. INR on Wednesday, 01 of July. 3. Hold Coumadin today and tomorrow. Restart on June 30. HISTORY: The patient was seen and examined on the day of discharge. Denies any new complaints. No chest pain, shortness of breath, or palpitations reported. BRIEF HOSPITAL COURSE: The patient is an 85-year-old female with atrial fibrillation, on anticoagulation, presented to the emergency room with chest discomfort. The patient was found to have indeterminate troponin with maximum troponin of 0.059. She was evaluated by Cardiology, Dr. Razo. She underwent a Cardiolite stress test that was negative for reversible ischemia. Ejection fraction was 80% with relatedly decreased motion of the anterolateral wall. The patient has been cleared by Cardiology for discharge. The patient was also found to have supratherapeutic INR, probably due to recent antibiotic use. INR maximum was 5.3. On the day of discharge, INR was 3.7. She was advised to hold warfarin for another two more days. She will require INR check after 2 days. FINAL DIAGNOSES: 1. Chest discomfort, acute coronary syndrome, ruled out. 2. Supratherapeutic INR, probably due to recent antibiotic use. 3. Chronic atrial fibrillation, on anticoagulation. 4. Hypertension. 5. Hyperlipidemia. 6. Obstructive sleep apnea. 7. History of pacemaker placement. 8. Obesity with a BMI of 35.8. 9. Chronic kidney disease, stage 3. The patient understands the above plan of care. Job ID: [id number]
--- NOTE | 2020-06-28 19:04 | PDOC.CPN ---
- Subjective Date: 06/28/20 Time: 19:02 Interval history: She is doing well. No more chest pain. - Review of Systems General: denies: fever/chills, weight/appetite/sleep changes, night sweats, fatigue Respiratory: denies: cough, congestion, shortness of breath, exercise intolerance Cardiovascular: denies: chest pain, palpitation, edema, paroxysmal nocturnal dyspnea, orthopnea Gastrointestinal: denies: nausea, vomiting, diarrhea, constipation, abd pain, GI bleeding Musculoskeletal: denies: pain, tenderness, stiffness, swelling, arthritis/ arthralgias Neurological: denies: numbness, syncope, seizure, weakness - Objective Allergies/Adverse Reactions: Allergies Allergy/AdvReac Type Severity Reaction Status Date / Time No Known Allergies Allergy Verified 06/27/20 03:36 Vital Signs & Weight: Vital Signs Temp Pulse Resp BP BP Pulse Ox 06/28/20 15:14 98.5 F 70 20 135/60 94 L 06/28/20 13:13 98.2 F 70 20 167/77 H 97 06/28/20 10:21 145/66 H 06/28/20 07:28 98.3 F 70 20 140/65 95 Weight 228 lb 12.8 oz - Physical Exam General: no apparent distress HEENT: mucus membranes moist Neck: supple neck Cardiac: irregularly regular Lungs: clear to auscultation Neuro: grossly intact Abdomen: active bowel sounds - Labs Result Diagrams: 06/28/20 04:21 06/27/20 04:21 Troponin/CKMB CK-MB (CK-2) 0.6 ng/mL (0-6.6) 06/26/20 16:32 Troponin I 0.043 ng/mL (< 0.028) H 06/27/20 00:04 - Telemetry Sinus rhythms and dysrhythmias: other (V paced.) Supraventricular conduction: atrial fibrillation - Assessment/Plan Assessment/Plan: 1. Atypical chest pain 2. Chronic afib 3. Supratherapeutic INR PLAN: - Normal stress test. - INR coming down nicely. - Primary team to manage abx therapy if needed. - Hold coumadin 2 more days and restart Wednesday. Follow up INR Wednesday or Wednesday.
--- NOTE | 2020-08-06 13:26 | STRESS ---
Acquisition Time: 2020-06-28 10:42:43 Total Exercise Time: 00:01:00 Test Indications: CHEST PAIN Medications: Protocol: LEXISCAN Max HR: 117 BPM 86% of Pred: 135 BPM Max BP: 104/050 mmHG Max Work Load: 1.0 METS RESTING ECG: VENTRICULAR PACED RHYTHM AT 71 BPM SYMPTOMS: NONE NORMAL BP RESPONSE ECTOPY: NONE ECG STRESS: NO SIGNIFICANT CHANGES INTERPRETATION: INDETERMINATE ECG/AWAIT NUCLEAR IMAGES FOR DEFINITIVE DIAGNOSIS Confirmed by BUFFY BROWN M.D. ([id number]) on 08/06/2020 1:25:37 PM Referred By: MD Pauly BOJORQUEZ Confirmed By:BUFFY BROWN M.D.
== END 2020-06-28 18:32 | disposition home or self-care (01) ==
LOC: ERS 15:44 → 2NO 21:28
PROVIDERS: ADMIT Internal Medicine; ATTEND Internal Medicine
DX: R07.89 Other chest pain (principal); I13.0 Hypertensive heart and chronic kidney disease with heart failure and stage 1 through stage 4 chronic kidney disease, or unspecified chronic kidney disease; E11.22 Type 2 diabetes mellitus with diabetic chronic kidney disease; N18.3 Chronic kidney disease, stage 3 (moderate); I50.9 Heart failure, unspecified; N17.9 Acute kidney failure, unspecified; D72.829 Elevated white blood cell count, unspecified; I48.20 Chronic atrial fibrillation, unspecified; E78.5 Hyperlipidemia, unspecified; J45.909 Unspecified asthma, uncomplicated; G47.33 Obstructive sleep apnea (adult) (pediatric); E66.9 Obesity, unspecified; Z68.35 Body mass index [BMI] 35.0-35.9, adult; Z79.01 Long term (current) use of anticoagulants; Z86.73 Personal history of transient ischemic attack (TIA), and cerebral infarction without residual deficits; Z79.899 Other long term (current) drug therapy; Z79.84 Long term (current) use of oral hypoglycemic drugs; Z95.0 Presence of cardiac pacemaker; Z20.828 Contact with and (suspected) exposure to other viral communicable diseases
CPT/HCPCS: 71045; 78452; 80048; 80061; 81001; 82550; 82553; 82962 ×2; 83690; 83735 ×2; 83880; 84484 ×3; 85014; 85018; 85025; 85049; 85610 ×4; 85730; 87040; 93005; 93017 ×2; 94760 ×3; 96365; 97139 ×3; 99285; A9500; G0378 ×4; U0003; 36415; 36416; 80053; 84443; 87635; J2785; J3475

== ENCOUNTER 2020-07-16 06:08 | Inpatient (IN) | payer MEDICARE, OTHER ==
[2020-07-16 07:04] LABS: Hemoglobin 12.1 g/dL (12.0-16.0); Mean Corpuscular Hemoglobin 26.1 pg (27.0-31.0); Mean Corpuscular Volume 84.4 fL (78.0-98.0); Mean Platelet Volume 8.8 fL (7.4-10.4); Platelet Count 705 thou/uL (130-400); Red Blood Cell (RBC) Count 4.65 mill/uL (4.20-5.40); White Blood Cell (WBC) Count 19.9 thou/uL (4.8-10.8)
[2020-07-16 07:27] LABS: ALT (SGPT) Less than 7 U/L (8-55); AST (SGOT) 9 U/L (5-34); Alkaline Phosphatase 106 U/L (40-110); Anion Gap 15 mmol/L (10-20); BUN (Urea Nitrogen) 41 mg/dL (9.8-20.1); Bilirubin, Total 0.4 mg/dL (0.2-1.2); Calc. Creatinine Clearance 0 mL/min (70-130); Calcium 8.8 mg/dL (7.8-10.44); Carbon Dioxide 26 mmol/L (23-31); Chloride 98 mmol/L (98-107); Estimated GFR-MDRD 25; Glucose 158 mg/dL (83-110); Potassium 6.1 mmol/L (3.5-5.1); Sodium 133 mmol/L (136-145)
[2020-07-16 07:34] LABS: Band 3 % (5-11); Lymphocytes 9 % (21-51); MDiff Complete? YES; Monocytes 13 % (0-10); Neutrophil 75 % (42-75); Platelet Morphology Comment Appears Increased; Polychromasia SLIGHT = 2-3 cells (100X) (0-2/hpf)
[2020-07-16 07:49] LABS: CKMB 0.6 ng/mL (0-6.6)
--- NOTE | 2020-07-16 07:54 | RAD ---
CHEST 1 VIEW: INDICATION: History of atrial fibrillation and dyspnea. COMPARISON: Prior exam dated 06/26/2020. FINDINGS: There is worsening cardiomegaly and pulmonary vascular congestion. There are tiny bilateral pleural effusions. There is a dual-lead pacemaker overlying the left chest wall. NO pneumothorax is evident . IMPRESSION: Worsening cardiomegaly, pulmonary vascular congestion, and small bilateral pleural effusions suggest mild congestive heart failure. POS: BH
[2020-07-16 09:36] LABS: Prothrombin Time 112.8 sec (12.0-14.7)
[2020-07-16 09:39] LABS: INR-International Normal Ratio 15.9; PTT 115.9 sec (22.9-36.1)
[2020-07-16] MEDS ORDERED: Phytonadione 10 MG/ML AMP PO SCH (10:45)
[2020-07-16] MEDS ORDERED: Phytonadione 10 MG/ML AMP ONE (10:49)
--- NOTE | 2020-07-16 10:52 | PDOC.HHP ---
Hospitalist HPI - History of Present Illness SOB, bradycardia, hypotension x 3 days History of Present Illness: PCP: Mendy The patient is a pleasant 85-year-old female with past medical history significant for supratherapeutic INR, hypertension, diabetes type 2, heart failure, atrial fibrillation with pacemaker placement. She presents from home today after several days of progressive shortness of breath. She also reports increased swelling in her legs. She denies any chest pain, fever, ill contacts , change in bowel or bladder patterns. After her initial EKG it was discovered that her heart rate was in the 40-50s which was odd due to her pacemaker being set at 70 bpm. The pacemaker rep came in and evaluated her and made some changes due to the T wave oversensing which was causing the bradycardia. After the pacemaker began to sense correctly once again the patient began to feel better. Was also discovered for patient's INR was supratherapeutic. This has happened in the past although not this significantly. She claims compliance with her medication. She was also discovered to be hyperkalemic with renal insufficiency, when questioned she states that she has been told to only drink 2 glasses of liquid per day after her last hospital stay which she states she has been strictly following. ED Course: Today in the ER they completed lab work, chest x-ray, 2 EKGs, pacemaker interrogation, and medication administration. Hospitalist ROS - Review of Systems Constitutional: reports: weakness. denies: fever, chills, sweats, malaise, other Eyes: denies: pain, vision change, conjunctivae inflammation, eyelid inflammation, redness, other ENT: denies: ear pain, ear discharge, nose pain, nose discharge, nose congestion , mouth pain, mouth swelling, throat pain, throat swelling, other Respiratory: reports: shortness of breath Cardiovascular: reports: other (bradycardia, hypotension) Gastrointestinal: denies: nausea, vomiting, abdominal pain, diarrhea, constipation, melena, hematochezia, other Genitourinary: denies: dysuria, frequency, incontinence, hematuria, retention, other Musculoskeletal: denies: neck pain, shoulder pain, arm pain, back pain, hand pain, leg pain, foot pain, other Skin: denies: rash, lesions, tiffany, bruising, other Neurological: denies: weakness, numbness, incoordination, change in speech, confusion, seizures, other All other systems reviewed; all pertinent +/- noted in HPI/Subj - Medication Medications: NKDA Current Medications: warfarin TABLET : Strength - 5 mg : ORAL Patient Dose: 1 tab(s) Oral once a day. glipiZIDE TABLET : Strength - 5 mg : ORAL Patient Dose: 1 tab(s) Oral once a day. metoprolol succinate TABLET, EXTENDED RELEASE 24 HR : Strength - 50 mg : ORAL Patient Dose: 1 tab(s) Oral once a day (in the morning). atorvastatin TABLET : Strength - 40 mg : ORAL Patient Dose: 1 tab(s) Oral once a day (at bedtime). losartan TABLET : Strength - 25 mg : ORAL Patient Dose: 1 tab(s) Oral once a day. Lasix oral TABLET : Strength - 40 mg : ORAL Patient Dose: 1 tab(s) Oral once a day. Hospitalist History - Past Medical History Source: patient, old records Cardiac: reports: AFIB, CHF, HTN Rheumatologic: reports: Gout Endocrine: reports: Diabetes - Past Surgical History Past Surgical History: reports: Appendectomy, Cholecystectomy, Hysterectomy Other Surgical History: brain tumor removed - Family History Family History: reports: no pertinent history - Social History Smoking Status: Never smoker Alcohol: reports: None Drugs: reports: none Living Situation: With Family - Exam General Appearance: NAD, awake alert Eye: PERRL, anicteric sclera ENT: normocephalic atraumatic, moist mucosa Neck: supple, no lymphadenopathy Heart: RRR, no murmur, no gallops, no rubs Heart - other findings: pacemaker Respiratory: CTAB, no wheezes, no rales, no ronchi Respiratory - other findings: diminished throughout Gastrointestinal: soft, non-tender, non-distended, normal bowel sounds Extremities - other findings: 4+ pitting edema to BLE Skin - other findings: ulcer to R great toe, pressure ulcer to sacrum, scattered echymosis Psychiatric: normal affect, normal behavior Hospitalist Results - Labs Result Diagrams: 07/16/20 06:42 07/16/20 06:41 Lab results: WBC 19.9 thou/uL (4.8-10.8) H 07/16/20 06:42 Hgb 12.1 g/dL (12.0-16.0) 07/16/20 06:42 Hct 39.2 % (36.0-47.0) 07/16/20 06:42 MCV 84.4 fL (78.0-98.0) 07/16/20 06:42 Plt Count 705 thou/uL (130-400) H 07/16/20 06:42 Band Neuts % (Manual) 3 % (5-11) L 07/16/20 06:42 Sodium 133 mmol/L (136-145) L 07/16/20 06:41 Potassium 6.1 mmol/L (3.5-5.1) H 07/16/20 06:41 Chloride 98 mmol/L (98-107) 07/16/20 06:41 Carbon Dioxide 26 mmol/L (23-31) 07/16/20 06:41 BUN 41 mg/dL (9.8-20.1) H 07/16/20 06:41 Creatinine 1.93 mg/dL (0.6-1.1) H 07/16/20 06:41 Glucose 158 mg/dL (83-110) H 07/16/20 06:41 Calcium 8.8 mg/dL (7.8-10.44) 07/16/20 06:41 Total Bilirubin 0.4 mg/dL (0.2-1.2) 07/16/20 06:41 AST 9 U/L (5-34) 07/16/20 06:41 ALT Less than 7 U/L (8-55) L 07/16/20 06:41 Alkaline Phosphatase 106 U/L (40-110) 07/16/20 06:41 CK-MB (CK-2) 0.6 ng/mL (0-6.6) 07/16/20 06:41 Troponin I 0.034 ng/mL (< 0.028) H 07/16/20 06:41 B-Natriuretic Peptide 130.4 pg/mL (0-100) H 07/16/20 06:41 Serum Total Protein 7.0 g/dL (6.0-8.3) 07/16/20 06:41 Albumin 3.0 g/dL (3.4-4.8) L 07/16/20 06:41 Laboratory Tests 07/16/20 07/16/20 07/16/20 06:41 06:41 06:41 PT 112.8 H INR 15.9 H* APTT 115.9 H* CK-MB (CK-2) 0.6 Troponin I 0.034 H B-Natriuretic Peptide 130.4 H - EKG Interpretation EKG: Initial: Paced 48 bpm- likely showing malfunction Second: Ventricular Paced 70 bpm - Radiology Interpretation Chest x-ray Status: image reviewed by me, report reviewed by me Additional Comment: IMPRESSION: Worsening cardiomegaly, pulmonary vascular congestion, and small bilateral pleural effusions suggest mild congestive heart failure. Hospitalist H&P A/P - Problem (1) Symptomatic bradycardia Code(s): R00.1 - BRADYCARDIA, UNSPECIFIED Status: Acute (2) Hyperkalemia Code(s): E87.5 - HYPERKALEMIA Status: Acute (3) Renal insufficiency Status: Chronic (4) Supratherapeutic INR Code(s): R79.1 - ABNORMAL COAGULATION PROFILE Status: Acute (5) Open toe wound Code(s): S91.109A - UNSP OPEN WOUND OF UNSP TOE(S) W/O DAMAGE TO NAIL, INIT Status: Acute Qualifiers: Encounter type: subsequent encounter Qualified Code(s): S91.109D - Unspecified open wound of unspecified toe(s) without damage to nail, subsequent encounter - Plan Plan: Symptomatic bradycardia Resolved at this time settings changed by pacemaker rep Monitor on telemetry Echo in March 2020 showed EF 50-55% Hyperkalemia Start IV fluids Recheck labs in a.m. Monitor on telemetry Renal insufficiency Continue IV fluids Supratherapeutic INR Vitamin K administered in ER We will follow-up on lab work in the morning May need additional dose of vitamin K Toe wound Foot x-ray Wound care consult Diabetes type 2 Monitor Accu-Cheks AC/HS Mild SSI Restart medications once reconciled Hypertension Stable at this time Continue to monitor Restart home medications VTE prophylaxis- INR 16, held SCDs due to edema and pain GI prophylaxis CODE STATUS: Full Surrogate decision maker patient's daughter Marisol Chapa
[2020-07-16 11:22] LABS: Troponin I 0.035 ng/mL (< 0.028)
[2020-07-16] MEDS ORDERED: Dextrose 5% in Water 1,000 ML IV PRN (13:37)
[2020-07-16] MEDS ORDERED: Dextrose 50% Abboject 50 ML SYRINGE SLOW IVP PRN (13:37)
--- NOTE | 2020-07-16 14:33 | RAD ---
XR Foot Rt 3 View STANDARD INDICATION: Nonhealing ulcer to the right great toe COMPARISON: April 01, 2020 FINDINGS: Bones: There is diffuse osteopenia. No definite displaced fracture is evident. No definite destructiv e osteolytic is present to suggest radiographic evidence of osteomyelitis. Enthesopathic changes again seen off the posterior and plantar calcaneus as well as the anterior talar head. Joints: There is scattered osteoarthrosis of the forefoot, midfoot and hindfoot. Lisfranc alignment: Lisfranc alignment appears within normal limits. Soft tissues: There is diffuse soft tissue swelling of the right foot. No radiopaque foreign body is evident. IMPRESSION: No acute osseous abnormality.
[2020-07-16] MEDS: Sodium Chloride 0.9% 1,000 ML IV SCH (16:39)
[2020-07-16 19:15] LABS: Anion Gap 15 mmol/L (10-20); BUN (Urea Nitrogen) 45 mg/dL (9.8-20.1); Calc. Creatinine Clearance 33 mL/min (70-130); Calcium 8.4 mg/dL (7.8-10.44); Carbon Dioxide 24 mmol/L (23-31); Chloride 98 mmol/L (98-107); Estimated GFR-MDRD 23; Glucose 176 mg/dL (83-110); Potassium 5.4 mmol/L (3.5-5.1); Sodium 132 mmol/L (136-145)
[2020-07-17 04:00] LABS: #Lymphocytes 1.6 thou/uL (1.20-3.40); #Monocytes 1.9 thou/uL (0.11-0.59); #Neutrophils 14.4 thou/uL (1.40-6.50); %Basophils 0.2 % (0.0-1.0); %Eosinophils 0.3 % (0.0-10.0); %Lymphocytes 8.8 % (21.0-51.0); %Monocytes 10.7 % (0.0-10.0); %Neutrophils 79.9 % (42.0-75.0); Mean Corpuscular HGB CONC 30.8 g/dL (32.0-36.0); Mean Corpuscular Hemoglobin 25.9 pg (27.0-31.0); Mean Corpuscular Volume 84.1 fL (78.0-98.0); Mean Platelet Volume 8.7 fL (7.4-10.4); Platelet Count 658 thou/uL (130-400); RBC Distribution Width 13.9 % (11.5-14.5); Red Blood Cell (RBC) Count 4.24 mill/uL (4.20-5.40)
[2020-07-17 04:03] LABS: INR-International Normal Ratio 2.3; Prothrombin Time 25.3 sec (12.0-14.7)
[2020-07-17 04:04] LABS: PTT 47.8 sec (22.9-36.1)
[2020-07-17 04:25] LABS: Anion Gap 14 mmol/L (10-20); BUN (Urea Nitrogen) 49 mg/dL (9.8-20.1); Calc. Creatinine Clearance 34 mL/min (70-130); Calcium 8.3 mg/dL (7.8-10.44); Carbon Dioxide 25 mmol/L (23-31); Chloride 100 mmol/L (98-107); Estimated GFR-MDRD 23; Glucose 129 mg/dL (83-110); Potassium 5.3 mmol/L (3.5-5.1); Sodium 134 mmol/L (136-145)
[2020-07-17] MEDS: Sodium Chloride 0.9% 1,000 ML IV SCH ×2 (04:32→21:25)
[2020-07-17] MEDS: Famotidine 20 MG TAB PO SCH (08:13)
[2020-07-17] MEDS: Ferrous Sulfate 325 MG TAB PO SCH ×2 (09:18→21:24)
[2020-07-17] MEDS: Warfarin Sodium 5 MG TAB PO SCH (09:19)
[2020-07-17] MEDS: cloNIDine 0.1 MG TAB PO SCH ×2 (09:20→21:24)
--- NOTE | 2020-07-17 15:38 | PDOC.HOSPP ---
- Subjective Encounter Date: 07/17/20 Subjective: Feeling a little bit better in general. Still feels a little bit short of breath at times. She reports she does use an inhaler and nebulizer frequently at home. She does have home health who comes and checks her INR routinely with the fingerstick machine. She follows with Dr. Razo for cardiology but does not have a supervisor files. - Objective Vital Signs & Weight: Vital Signs (12 hours) Temp Pulse Resp BP Pulse Ox 07/17/20 15:00 98.2 F 76 22 H 129/73 93 L 07/17/20 11:23 97.5 F L 72 20 107/52 L 93 L 07/17/20 08:42 99 07/17/20 08:04 98.1 F 72 22 H 128/67 97 Weight Admit Weight 231 lb 9.6 oz Weight 229 lb I&O: 07/16/20 07/17/20 07/18/20 06:59 06:59 06:59 Intake Total 390 Output Total 80 Balance 310 Result Diagrams: 07/17/20 03:33 07/17/20 03:33 Additional Labs: Accuchecks 07/17/20 07/17/20 07/16/20 11:00 05:56 16:50 POC Glucose 141 H 124 H 138 H Hospitalist ROS - Medication Medications: Active Medications Generic Name Dose Route Start Last Admin Trade Name Freq PRN Reason Stop Dose Admin Clonidine 0.1 mg 07/17/20 09:00 07/17/20 09:20 Catapres PO 0.1 mg BID HAILEY Administration Famotidine 20 mg 07/17/20 09:00 07/17/20 08:13 Pepcid PO 20 mg DAILY HAILEY Administration Ferrous Sulfate 325 mg 07/17/20 09:00 07/17/20 09:18 Feosol PO 325 mg BID HAILEY Administration Sodium Chloride 1,000 mls @ 60 mls/hr 07/16/20 13:45 07/17/20 04:32 Normal Saline 0.9% IV 1,000 mls .[id number] HAILEY Administration Metoprolol Succinate 50 mg 07/17/20 09:00 07/17/20 09:18 Toprol Xl PO 50 mg DAILY HAILEY Administration Warfarin Sodium 5 mg 07/17/20 09:00 07/17/20 09:19 Coumadin PO 5 mg DAILY HAILEY Administration - Exam General Appearance: NAD, awake alert General - other findings: Obese Heart: RRR, no murmur, no gallops, no rubs, normal peripheral pulses Respiratory: no wheezes, no rales Respiratory - other findings: Diminished. Borderline tachypnea Gastrointestinal: soft, non-tender, non-distended, normal bowel sounds, no palpable masses, no hepatomegaly, no splenomegaly, no bruit Extremities - other findings: Trace edema bilateral LEs. Skin - other findings: Right great toe skin lesion dressed by wound care. Neurological: no new deficit Musculoskeletal: normal tone Psychiatric: normal affect, normal behavior, A&O x 3 Hosp A/P (1) Symptomatic bradycardia Code(s): R00.1 - BRADYCARDIA, UNSPECIFIED Status: Acute (2) Acute renal failure superimposed on stage 3 chronic kidney disease Code(s): N17.9 - ACUTE KIDNEY FAILURE, UNSPECIFIED; N18.3 - CHRONIC KIDNEY DISEASE, STAGE 3 (MODERATE) Status: Acute (3) Open wound of right great toe Code(s): S91.101A - UNSP OPEN WOUND OF RIGHT GREAT TOE W/O DAMAGE TO NAIL, INIT Status: Acute (4) Hyperkalemia Code(s): E87.5 - HYPERKALEMIA Status: Acute (5) Acute on chronic diastolic CHF (congestive heart failure) Code(s): I50.33 - ACUTE ON CHRONIC DIASTOLIC (CONGESTIVE) HEART FAILURE Status : Acute (6) Chronic anticoagulation Code(s): Z79.01 - FINISH PHOTOGRAPHER (CURRENT) USE OF ANTICOAGULANTS Status: Chronic (7) H/O cardiac pacemaker Code(s): Z95.0 - PRESENCE OF CARDIAC PACEMAKER Status: Chronic (8) HTN (hypertension) Code(s): I10 - ESSENTIAL (PRIMARY) HYPERTENSION Status: Chronic Qualifiers: Hypertension type: essential hypertension Qualified Code(s): I10 - Essential (primary) hypertension (9) CLEMENCIA (obstructive sleep apnea) Code(s): G47.33 - OBSTRUCTIVE SLEEP APNEA (ADULT) (PEDIATRIC) Status: Chronic (10) Obesity (BMI 30-39.9) Code(s): E66.9 - OBESITY, UNSPECIFIED Status: Chronic (11) Paroxysmal atrial fibrillation Code(s): I48.0 - PAROXYSMAL ATRIAL FIBRILLATION Status: Chronic (12) Type 2 diabetes mellitus Status: Chronic Qualifiers: Diabetes mellitus intermediate insulin use: without intermediate use Diabetes mellitus complication status: with unspecified complications - Plan Symptomatic bradycardia: Appears to have been a pacemaker detection malfunction which is been resolved. Currently heart rate is stable. She remains asymptomatic at this time. Supratherapeutic INR: Patient had extremely elevated INR. She received vitamin K. Currently she is back to a normal INR and warfarin has been resumed. Recommended she have a conversation with Dr. Razo regarding anticoagulation options. Acute on chronic kidney disease stage III: Patient has chronic kidney disease generally with a GFR that is in the upper 30s to 50s. Currently GFR is in the low 20s. Suspect she may have poor cardiac function leading to some cardiorenal syndrome. Nephrology consult. Hyperkalemia: Likely secondary to the acute worsening renal disease along with Lasix and potassium supplementation. Improved with gentle hydration. Open wound right great toe: Appreciate wound care input. Acute on chronic diastolic congestive heart failure: Suspect this was also partly related to the patient's bradycardia. No indication for aggressive diuresis at this time I suspect this will improve with the improved heart rate. Diabetes mellitus: Blood sugars are very well controlled.
[2020-07-17] MEDS: Albumin 25% 25 GM/100 ML BOT IVPB SCH ×2 (17:59→21:25)
--- NOTE | 2020-07-17 19:24 | RAD ---
Chest one view HISTORY: Dyspnea. COMPARISON: 07/06/2020. FINDINGS: Cardiac silhouette is magnified and enlarged. Pulmonary vasculature remains slightly engorg ed.. Mediastinum is midline with aortic calcification and left subclavian cardiac electronic device. Patchy bibasilar infiltrates have progressed slightly. Blunting of the left lateral costophrenic angl e. IMPRESSION : Cardiomegaly. Slight radiographic progression in appearance of pulmonary vascular congestion.
--- NOTE | 2020-07-17 19:48 | CON ---
DATE OF CONSULTATION: HISTORY OF PRESENT ILLNESS: Ms. Rico is an 85-year-old white female, admitted for shortness of breath/bradycardia. She was also noted to be hypotensive in the last few days. We are now being consulted for her acute kidney injury on top of her chronic renal failure. This patient was last seen back in 2018 by the [facility]al [facility] for her acute kidney injury. The other considerations, this patient may be having some COPD exacerbation. She tells me her breathing is much improved this afternoon when compared to admission yesterday. REVIEW OF SYSTEMS: Positive for shortness of breath. No chest pain. No syncopal episode. No nausea. No vomiting. No fever or chills. No productive cough. No gross hematuria. No dysuria. No frequency. Appetite and energy level are fair. No headache. No hematochezia. No melena. PAST MEDICAL HISTORY: The patient has history of chronic renal failure from type 2 diabetes mellitus, hypertension, COPD, hyperlipidemia, colon cancer in remission, morbid obesity, obstructive sleep apnea ? of atrial fibrillation. PAST SURGICAL HISTORY: Status post colonoscopy, status post hysterectomy, status post ileostomy placement with reversal, status post permanent pacemaker placement, status post laparoscopic low anterior resection of rectal cancer, status post craniotomy with benign tumor, status post tonsillectomy. SOCIAL HISTORY: The patient is single, lives in [place] with her daughter. No history of smoking. No alcohol intake. Status post blood transfusion. 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 Education, 3rd year high school. Sedentary lifestyle. FAMILY HISTORY: No family history of ESRD. ALLERGIES: NONE. TRAUMA: Status post fall with right upper extremity fracture, status post right ankle fracture. IMMUNIZATION: Up to date. HOSPITALIZATIONS: Please see past medical history. PHYSICAL EXAMINATION: VITAL SIGNS: Blood pressure is noted to be at 129/73, heart rate 80, respiratory rate 16, O2 saturation 96% on 2 L. GENERAL: Noted to be awake, alert, supine, obese, comfortable, not in distress. SKIN: Adequate turgor. HEENT: She has a pinkish conjunctivae. Anicteric sclerae. No neck mass. No carotid bruits. No JVD. CHEST: No deformities. LUNGS: Decreased breath sounds. HEART: Normal sinus rhythm. No murmur. No gallops. No rubs. ABDOMEN: Globular, soft, nontender. No masses. Positive for bowel sounds. Negative for epigastric bruits. GROIN: No inguinal lymphadenopathy. EXTREMITIES: Trace edema. MEDICATIONS: Medications of July 17, 2020, 1. Albumin 25 g IV q.6. 2. DuoNeb q.4 p.r.n. 3. Lipitor 40 mg at bedtime. 4. Clonidine 0.1 mg p.o. b.i.d. 5. Pepcid 20 mg daily. 6. Ferrous sulfate 325 mg tab b.i.d. 7. Humulin sliding scale. 8. Toprol-XL 50 mg daily. 9. ProAir oral inhaler. 10. Atorvastatin 40 mg at bedtime. 11. Normal saline 60 mL/hour. 12. Coumadin as directed. Home medication shows patient was taking furosemide 20 mg p.o. b.i.d., was on K-Dur at 20 mEq once a day. LABORATORY DATA: White count 18, hemoglobin is 11. Sodium 134, potassium 5.3, chloride 100, carbon dioxide 25, BUN 49, creatinine 2.03. Glucose 129, calcium 8.3. , BUN 45, creatinine 2.04. , BUN 41, creatinine 1.93. June 27, 2020, creatinine 1.34. Chest x-ray shows increased lung markings with ? mild CHF. Urinalysis of June 27, 2020, the patient has negative protein. ASSESSMENT AND PLAN: 1. Acute kidney injury on top of her chronic renal failure-consider hemodynamically mediated dysfunction. The patient has been on diuretics prior to admission. She was also on potassium supplementation. Empiric volume repletion is being given with albumin infusion. The previous urinalysis has shown protein with this patient-intermittently suggesting the possibility of diabetic nephropathy as the cause of the chronic renal failure. There is no indication for any dialytic intervention. Agree with empiric albumin infusion with this patient. Recheck base met in a.m. 2. Shortness of breath, congestive heart failure/chronic obstructive pulmonary disease exacerbation, clinically improving. Continue current management. Continue neb treatment. 3. Recheck CBC base met in a.m. Job ID: [id number]
[2020-07-17] MEDS: Atorvastatin Calcium 40 MG TAB PO SCH (21:24)
[2020-07-18 04:28] LABS: #Eosinphils 0.1 thou/uL (0.0-0.7); #Lymphocytes 1.3 thou/uL (1.20-3.40); #Monocytes 1.8 thou/uL (0.11-0.59); #Neutrophils 13.8 thou/uL (1.40-6.50); %Basophils 0.2 % (0.0-1.0); %Eosinophils 0.4 % (0.0-10.0); %Lymphocytes 7.5 % (21.0-51.0); %Monocytes 10.8 % (0.0-10.0); %Neutrophils 81.1 % (42.0-75.0); Hemoglobin 10.2 g/dL (12.0-16.0); Mean Corpuscular HGB CONC 31.2 g/dL (32.0-36.0); Mean Corpuscular Hemoglobin 26.6 pg (27.0-31.0); Mean Corpuscular Volume 85.3 fL (78.0-98.0); Mean Platelet Volume 8.4 fL (7.4-10.4); Platelet Count 594 thou/uL (130-400); RBC Distribution Width 13.7 % (11.5-14.5); Red Blood Cell (RBC) Count 3.84 mill/uL (4.20-5.40)
[2020-07-18 04:34] LABS: INR-International Normal Ratio 1.9; Prothrombin Time 21.8 sec (12.0-14.7)
[2020-07-18 04:35] LABS: PTT 44.1 sec (22.9-36.1)
[2020-07-18 04:47] LABS: Anion Gap 15 mmol/L (10-20); BUN (Urea Nitrogen) 51 mg/dL (9.8-20.1); Calc. Creatinine Clearance 35 mL/min (70-130); Calcium 8.5 mg/dL (7.8-10.44); Carbon Dioxide 24 mmol/L (23-31); Chloride 104 mmol/L (98-107); Estimated GFR-MDRD 24; Glucose 104 mg/dL (83-110); Potassium 5.4 mmol/L (3.5-5.1); Sodium 138 mmol/L (136-145)
[2020-07-18] MEDS: Albumin 25% 25 GM/100 ML BOT IVPB SCH ×4 (04:47→21:32)
[2020-07-18] MEDS: cloNIDine 0.1 MG TAB PO SCH ×2 (08:48→21:31)
[2020-07-18] MEDS: Warfarin Sodium 5 MG TAB PO SCH (08:48)
[2020-07-18] MEDS: Ferrous Sulfate 325 MG TAB PO SCH ×2 (08:49→21:31)
[2020-07-18] MEDS: Famotidine 20 MG TAB PO SCH (08:49)
--- NOTE | 2020-07-18 09:09 | PRG ---
DATE OF SERVICE: 07/18/2020 SERVICE: Renal Medicine. SUBJECTIVE: Ms. Rico is an 85-year-old white female who was seen for an acute kidney injury on top of her chronic renal failure. She was initially seen due to elevated creatinine of 2.03. Empiric volume repletion with albumin was done. She tolerated the said treatment. She denies any chest pain or shortness of breath. The patient's breathing was actually improved. OBJECTIVE: VITAL SIGNS: Blood pressure is 112/56, heart rate 74, respiratory rate 20, temperature 98, O2 saturation 99%. GENERAL: Awake, alert, supine, comfortable, morbidly obese. SKIN: Adequate turgor. HEENT: She has pinkish conjunctivae. Anicteric sclerae. NECK: No neck mass. No carotid bruits. No JVD. CHEST: No deformities. LUNGS: Decreased breath sounds. HEART: Normal sinus rhythm. No murmurs, gallops, or rubs. ABDOMEN: Globular, soft, nontender. No masses. EXTREMITIES: No edema. No deformities. MEDICATIONS: Of July 18, 2020, reviewed. LABORATORY DATA: Of July 18, 2020: White count 17, hemoglobin 10.2. Sodium 134, potassium 5.3, chloride 100, carbon dioxide 25, BUN 49, and creatinine 2.03. sodium 138, potassium 5.4, chloride 104, carbon dioxide 24, BUN 51, creatinine 1.95, glucose 104, and calcium 8.5. Urinalysis pending. Chest x-ray of July 17, 2020; showed cardiomegaly with increased lung markings. ASSESSMENT AND PLAN: 1. Acute kidney injury on top of chronic renal failure - this could be hemodynamically-mediated dysfunction. Creatinine is stabilizing with a gentle infusion of normal saline as well as albumin infusion. Due to the persistent increased lung markings with a chest x-ray, I will probably discontinue the normal saline, which is running at 60 mL/hour. I have decided to extend albumin at 25 g IV q.6 for another day. Please note that the patient's shortness of breath was actually much improved. 2. Consider also scheduling this patient for repeat cardiac echo if this has not been done yet with this hospitalization. 3. Recheck CBC and basic metabolic profile in a.m. No indication for any dialytic intervention. Job ID: [id number] [facility]
[2020-07-18 09:31] LABS: Bacteria/HPF 4+ HPF (None Seen); Bilirubin Negative (Negative); Blood, Urine 3+ (Negative); Clarity Turbid (Clear); Glucose, Urine (Dipstick) Normal (Negative); Ketone, Urine Negative (Negative); Leukocyte 500 Leu/uL (Negative); Nitrite Negative (Negative); Protein, Urine (Dipstick) 30 mg/dL (Neg-Trace); Specific Gravity, Urine 1.018 (1.002-1.036); Squamous Epithelial 0-3 HPF (0-3)
[2020-07-18 09:38] LABS: Calcium Oxalate Crystals 3+ HPF (None Seen)
--- NOTE | 2020-07-18 11:29 | RAD ---
PORTABLE CHEST: Date: 07/18/2020 INDICATION: Shortness of breath. COMPARISON: 07/17/2020. FINDINGS/IMPRESSION: Cardiomegaly with mild vascular congestion. Small effusions and bibasilar atelectasis or infiltrates. Exam not significantly changed from 07/17/2020. POS: AH
--- NOTE | 2020-07-18 15:33 | EKG ---
Test Reason : Blood Pressure : / mmHG Vent. Rate : 048 BPM Atrial Rate : 053 BPM P-R Int : 000 ms QRS Dur : 116 ms QT Int : 456 ms P-R-T Axes : 067 -72 125 degrees QTc Int : 407 ms Electronic ventricular pacemaker Confirmed by DANIELA WITT ([id number]), desk editor POPPY VALENCIA ([id number]) on 07/18/2020 3:31:25 PM Referred By: Confirmed By:DANIELA WITT
--- NOTE | 2020-07-18 15:57 | PDOC.HOSPP ---
- Subjective Encounter Date: 07/18/20 Subjective: Has had slightly increased shortness of breath overnight. Has had some oxygen placed and feels slightly better. - Objective Vital Signs & Weight: Vital Signs (12 hours) Temp Pulse Resp BP Pulse Ox 07/18/20 15:20 97.9 F 71 20 111/54 L 96 07/18/20 11:30 98.1 F 75 16 110/53 L 95 07/18/20 07:50 98.0 F 74 20 112/56 L 99 Weight Admit Weight 231 lb 9.6 oz Weight 229 lb I&O: 07/17/20 07/18/20 07/19/20 06:59 06:59 06:59 Intake Total 390 Output Total 80 Balance 310 Result Diagrams: 07/18/20 03:43 07/18/20 03:43 Additional Labs: Accuchecks 07/18/20 07/18/20 07/17/20 10:46 05:12 21:05 POC Glucose 132 H 139 H 120 H 07/17/20 07/16/20 16:49 20:25 POC Glucose 120 H 143 H Hospitalist ROS - Medication Medications: Active Medications Generic Name Dose Route Start Last Admin Trade Name Freq PRN Reason Stop Dose Admin Albuterol/Ipratropium 3 ml 07/17/20 10:26 07/17/20 16:21 Duoneb NEB 3 ml Q4H PRN Administration SOB &/or Wheezing Atorvastatin Calcium 40 mg 07/17/20 21:00 07/17/20 21:24 Lipitor PO 40 mg HS HAILEY Administration Clonidine 0.1 mg 07/17/20 09:00 07/18/20 08:48 Catapres PO 0.1 mg BID HAILEY Administration Famotidine 20 mg 07/17/20 09:00 07/18/20 08:49 Pepcid PO 20 mg DAILY HAILEY Administration Ferrous Sulfate 325 mg 07/17/20 09:00 07/18/20 08:49 Feosol PO 325 mg BID HAILEY Administration Metoprolol Succinate 50 mg 07/17/20 09:00 07/18/20 08:48 Toprol Xl PO 50 mg DAILY HAILEY Administration Warfarin Sodium 5 mg 07/17/20 09:00 07/18/20 08:48 Coumadin PO 5 mg DAILY HAILEY Administration - Exam General Appearance: NAD, awake alert General - other findings: Obese Neck: supple, symmetric, no JVD, no thyromegaly, no lymphadenopathy, no carotid bruit Heart: RRR, no murmur, no gallops, no rubs, normal peripheral pulses Respiratory: CTAB, no wheezes, no rales, no ronchi, normal chest expansion, no tachypnea, normal percussion Respiratory - other findings: Diminished Gastrointestinal: soft, non-tender, non-distended, normal bowel sounds, no palpable masses, no hepatomegaly, no splenomegaly, no bruit Extremities: 1+ LE edema (Bilateral lower extremities) Skin: normal turgor Psychiatric: normal affect, normal behavior, A&O x 3 Hosp A/P (1) Symptomatic bradycardia Code(s): R00.1 - BRADYCARDIA, UNSPECIFIED Status: Acute (2) Acute renal failure superimposed on stage 3 chronic kidney disease Code(s): N17.9 - ACUTE KIDNEY FAILURE, UNSPECIFIED; N18.3 - CHRONIC KIDNEY DISEASE, STAGE 3 (MODERATE) Status: Acute (3) Open wound of right great toe Code(s): S91.101A - UNSP OPEN WOUND OF RIGHT GREAT TOE W/O DAMAGE TO NAIL, INIT Status: Acute (4) Hyperkalemia Code(s): E87.5 - HYPERKALEMIA Status: Acute (5) Acute on chronic diastolic CHF (congestive heart failure) Code(s): I50.33 - ACUTE ON CHRONIC DIASTOLIC (CONGESTIVE) HEART FAILURE Status : Acute (6) Chronic anticoagulation Code(s): Z79.01 - RUNWAY MODEL (CURRENT) USE OF ANTICOAGULANTS Status: Chronic (7) H/O cardiac pacemaker Code(s): Z95.0 - PRESENCE OF CARDIAC PACEMAKER Status: Chronic (8) HTN (hypertension) Code(s): I10 - ESSENTIAL (PRIMARY) HYPERTENSION Status: Chronic Qualifiers: Hypertension type: essential hypertension Qualified Code(s): I10 - Essential (primary) hypertension (9) CLEMENCIA (obstructive sleep apnea) Code(s): G47.33 - OBSTRUCTIVE SLEEP APNEA (ADULT) (PEDIATRIC) Status: Chronic (10) Obesity (BMI 30-39.9) Code(s): E66.9 - OBESITY, UNSPECIFIED Status: Chronic (11) Paroxysmal atrial fibrillation Code(s): I48.0 - PAROXYSMAL ATRIAL FIBRILLATION Status: Chronic (12) Type 2 diabetes mellitus Status: Chronic Qualifiers: Diabetes mellitus snf insulin use: without intermediate frame tender use Diabetes mellitus complication status: with unspecified complications - Plan Symptomatic bradycardia: Appears to have been a pacemaker detection malfunction which is been resolved. Currently heart rate is stable. She remains asymptomatic at this time. Supratherapeutic INR: Patient had extremely elevated INR. She received vitamin K. Currently she is back to a normal INR and warfarin has been resumed. Recommended she have a conversation with Dr. Razo regarding anticoagulation options. Acute on chronic kidney disease stage III: Patient has chronic kidney disease generally with a GFR that is in the upper 30s to 50s. Currently GFR is in the low 20s. Suspect she may have poor cardiac function leading to some cardiorenal syndrome. Nephrology consult appreciated. Patient had some decreased urine output yesterday therefore albumin was initiated. Hyperkalemia: Likely secondary to the acute worsening renal disease along with Lasix and potassium supplementation. Improved with gentle hydration. Lasix and potassium have been held thus far. Open wound right great toe: Appreciate wound care input. Acute on chronic diastolic congestive heart failure: Suspect this was also partly related to the patient's bradycardia. No indication for aggressive diuresis at this time I suspect this will improve with the improved heart rate. So far her chest x-ray is remained stable but she does have some increasing shortness of breath. She may need some additional Lasix at some point. Diabetes mellitus: Blood sugars are very well controlled. Acute hypoxic respiratory failure: Unclear if this is related to heart failure. BNP was initially not elevated and her chest x-rays do not show significant edema. PRN oxygen.
[2020-07-18] MEDS ORDERED: Furosemide 40 MG/4 ML VIAL IVP SCH (19:00)
[2020-07-18] MEDS: Atorvastatin Calcium 40 MG TAB PO SCH (21:31)
[2020-07-19 00:37] LABS: Actual Bicarbonate (HCO3a) 24.3 mEq/L (22-28); Base Excess (BEa) -6.2 mEq/L (-2.0 to +3.0); Calcium, Ionized (arterial) 1.17 mmol/L (1.12-1.30); Carboxyhemoglobin (COHb) 0.2 gm% (0.0-3.0); Hemoglobin (Hb) 10.9 g/dL (12.0-16.0); O2 Tension (PaO2), arterial 106.4 mmHg (> 60.0); Potassium - ABG Lab 5.59 mmol/L (3.70-5.30)
[2020-07-19 00:42] LABS: CO2 Tension 79.1 mmHg (35.0-45.0)
[2020-07-19 00:43] LABS: ALV-art Gradient -5.635 (0-20); Puncture Site RRA; pH, Arterial 7.11 (7.35-7.45)
[2020-07-19 00:55] LABS: #Eosinphils 0.1 thou/uL (0.0-0.7); #Lymphocytes 1.5 thou/uL (1.20-3.40); #Monocytes 1.7 thou/uL (0.11-0.59); #Neutrophils 13.7 thou/uL (1.40-6.50); %Basophils 0.2 % (0.0-1.0); %Eosinophils 0.3 % (0.0-10.0); %Lymphocytes 8.8 % (21.0-51.0); %Monocytes 9.9 % (0.0-10.0); %Neutrophils 80.8 % (42.0-75.0); Hemoglobin 10.5 g/dL (12.0-16.0); Mean Corpuscular HGB CONC 30.6 g/dL (32.0-36.0); Mean Corpuscular Hemoglobin 26.5 pg (27.0-31.0); Mean Corpuscular Volume 86.5 fL (78.0-98.0); Mean Platelet Volume 8.2 fL (7.4-10.4); Platelet Count 629 thou/uL (130-400); Red Blood Cell (RBC) Count 3.95 mill/uL (4.20-5.40)
[2020-07-19 01:14] LABS: Lactic Acid 0.7 mmol/L (0.5-2.2)
[2020-07-19 01:15] LABS: Anion Gap 18 mmol/L (10-20); BUN (Urea Nitrogen) 55 mg/dL (9.8-20.1); Calc. Creatinine Clearance 29 mL/min (70-130); Calcium 8.4 mg/dL (7.8-10.44); Carbon Dioxide 20 mmol/L (23-31); Chloride 102 mmol/L (98-107); Estimated GFR-MDRD 20; Glucose 123 mg/dL (83-110); Potassium 5.9 mmol/L (3.5-5.1); Sodium 134 mmol/L (136-145)
--- NOTE | 2020-07-19 01:18 | PDOC.EVN ---
Event Note - Event Note Event Note: called by RN patient has labored breathing on m exam she was talkative and stated that she is feeling better she has fine bilateral inspiratory crackles her ABG is reflecting hypercarbia I will transfer her to IMCU in order to start BIPAP she did recEive lasix and she is on ATB, I am awaiting her electrolytes to come back further management as per her progression
[2020-07-19 02:02] LABS: Bacteria/HPF 4+ HPF (None Seen); Bilirubin Negative (Negative); Blood, Urine 1+ (Negative); Clarity Extra Turbid (Clear); Glucose, Urine (Dipstick) Normal (Negative); Ketone, Urine Negative (Negative); Leukocyte 75 Leu/uL (Negative); Nitrite Negative (Negative); Protein, Urine (Dipstick) 70 mg/dL (Neg-Trace); RBC/HPF 0-3 HPF (0-3); Specific Gravity, Urine 1.017 (1.002-1.036); Squamous Epithelial 0-3 HPF (0-3)
[2020-07-19 02:03] LABS: Urine Culture Reflex Yes Yes
[2020-07-19 03:36] LABS: #Basophils 0.1 thou/uL (0.0-0.2); %Basophils 0.3 % (0.0-1.0); %Eosinophils 0.3 % (0.0-10.0); %Lymphocytes 6.2 % (21.0-51.0); %Monocytes 12.2 % (0.0-10.0); Hemoglobin 10.2 g/dL (12.0-16.0); Mean Corpuscular HGB CONC 30.3 g/dL (32.0-36.0); Mean Corpuscular Hemoglobin 26.3 pg (27.0-31.0); Mean Corpuscular Volume 86.6 fL (78.0-98.0); Mean Platelet Volume 8.1 fL (7.4-10.4); Platelet Count 635 thou/uL (130-400); RBC Distribution Width 13.9 % (11.5-14.5); Red Blood Cell (RBC) Count 3.87 mill/uL (4.20-5.40)
[2020-07-19] MEDS: cefTRIAXone\\ROCEPHIN 2 GM in Sodium Chloride 0.9% 100 ML IVPB SCH (03:46)
[2020-07-19 03:55] LABS: Anion Gap 18 mmol/L (10-20); BUN (Urea Nitrogen) 56 mg/dL (9.8-20.1); Calc. Creatinine Clearance 27 mL/min (70-130); Calcium 8.5 mg/dL (7.8-10.44); Carbon Dioxide 22 mmol/L (23-31); Chloride 101 mmol/L (98-107); Estimated GFR-MDRD 18; Glucose 126 mg/dL (83-110); Sodium 135 mmol/L (136-145)
[2020-07-19] MEDS: Albumin 25% 25 GM/100 ML BOT IVPB SCH ×2 (04:35→09:38)
[2020-07-19] MEDS ORDERED: Dextrose 50% Abboject 50 ML SYRINGE SLOW IVP PRN (04:43)
[2020-07-19] MEDS ORDERED: Insulin Regular 300 UNITS/3 ML VIAL IVP SCH (05:00)
--- NOTE | 2020-07-19 07:36 | RAD ---
XR Chest 1 View Portable History: Shortness of breath with tachypnea Comparison: Radiograph prior day Findings: Heart size continues to be enlarged. Moderate effusions. Left basilar opacity. Dual-lead pacer is similar. No acute osseous abnormality. The pulmonary arteries are dilated. Impression: Similar examination of the chest.
[2020-07-19 08:06] LABS: Actual Bicarbonate (HCO3a) 23.4 mEq/L (22-28); Calcium, Ionized (arterial) 1.17 mmol/L (1.12-1.30); Carboxyhemoglobin (COHb) 0.8 gm% (0.0-3.0); O2 Tension (PaO2), arterial 89.9 mmHg (> 60.0); Potassium - ABG Lab 4.87 mmol/L (3.70-5.30)
[2020-07-19 08:19] LABS: ALV-art Gradient 75.025 (0-20); CO2 Tension 67.7 mmHg (35.0-45.0); Puncture Site RRA; pH, Arterial 7.16 (7.35-7.45)
--- NOTE | 2020-07-19 08:59 | PDOC.HOSPP ---
- Subjective Encounter Date: 07/19/20 Subjective: Events of last night were noted. Patient had increasing shortness of breath. ABG revealed significant hypercapnic respiratory failure with acidosis. Patient was moved to the [facility] and started on BiPAP. Symptomatically the patient appeared to be somewhat better. However repeat ABG this morning shows the patient remains significantly acidotic with hypercapnia. The patient this morning reports she does not feel like she is having any respiratory difficulty. - Objective Vital Signs & Weight: Vital Signs (12 hours) Temp Pulse Resp BP Pulse Ox 07/19/20 08:11 70 32 H 100 07/19/20 07:36 97.4 F L 07/19/20 03:53 98.7 F 07/19/20 03:17 100 07/19/20 01:14 70 25 H 98 07/19/20 00:01 98.7 F 73 21 H 118/55 L 97 07/18/20 21:25 99.1 F 70 36 H 125/60 99 Weight Admit Weight 231 lb 9.6 oz Weight 229 lb Most Recent Monitor Data Heart Rate from ECG 71 NIBP 159/73 NIBP BP-Mean 101 Respiration from ECG 34 SpO2 98 I&O: 07/18/20 07/19/20 07/20/20 06:59 06:59 06:59 Intake Total 950 Output Total 150 Balance 800 Result Diagrams: 07/19/20 03:09 07/19/20 03:09 Additional Labs: Accuchecks 07/19/20 07/19/20 07/18/20 06:13 00:27 20:27 POC Glucose 181 H 140 H 119 H 07/18/20 07/18/20 17:13 10:46 POC Glucose 132 H 132 H Hospitalist ROS - Medication Medications: Active Medications Generic Name Dose Route Start Last Admin Trade Name Freq PRN Reason Stop Dose Admin Albumin Human 25 gm 07/18/20 16:00 07/19/20 04:35 Albumin 25% IVPB 07/19/20 10:01 25 gm 0400,1000,1600,2200 HAILEY Administration Atorvastatin Calcium 40 mg 07/17/20 21:00 07/18/20 21:31 Lipitor PO 40 mg HS HAILEY Administration Clonidine 0.1 mg 07/17/20 09:00 07/18/20 21:31 Catapres PO 0.1 mg BID HAILEY Administration Dextrose/Water 25 gm 07/19/20 04:43 07/19/20 05:14 Dextrose 50% SLOW IVP 07/20/20 04:44 25 gm ONE PRN Administration Hypoglycemia Famotidine 20 mg 07/17/20 09:00 07/18/20 08:49 Pepcid PO 20 mg DAILY HAILEY Administration Ferrous Sulfate 325 mg 07/17/20 09:00 07/18/20 21:31 Feosol PO 325 mg BID HAILEY Administration Ceftriaxone Sodium 2 gm/ 100 mls @ 200 mls/hr 07/19/20 01:00 07/19/20 03:46 Sodium Chloride IVPB 100 mls Q24HR HAILEY Administration Metoprolol Succinate 50 mg 07/17/20 09:00 07/18/20 08:48 Toprol Xl PO 50 mg DAILY HAILEY Administration Warfarin Sodium 5 mg 07/17/20 09:00 07/18/20 08:48 Coumadin PO 5 mg DAILY HAILEY Administration - Exam General Appearance: NAD General - other findings: BiPAP Heart: RRR, no murmur, no gallops, no rubs, normal peripheral pulses Respiratory: CTAB, no wheezes, no rales Respiratory - other findings: Very diminished throughout Gastrointestinal: soft, non-tender, non-distended, normal bowel sounds, no palpable masses, no hepatomegaly, no splenomegaly, no bruit Extremities: 1+ LE edema (Bilateral lower extremities) Neurological: no new deficit Musculoskeletal: generalized weakness Psychiatric: lethargic Hosp A/P (1) Symptomatic bradycardia Code(s): R00.1 - BRADYCARDIA, UNSPECIFIED Status: Acute (2) Acute renal failure superimposed on stage 3 chronic kidney disease Code(s): N17.9 - ACUTE KIDNEY FAILURE, UNSPECIFIED; N18.3 - CHRONIC KIDNEY DISEASE, STAGE 3 (MODERATE) Status: Acute (3) Open wound of right great toe Code(s): S91.101A - UNSP OPEN WOUND OF RIGHT GREAT TOE W/O DAMAGE TO NAIL, INIT Status: Acute (4) Hyperkalemia Code(s): E87.5 - HYPERKALEMIA Status: Acute (5) Acute on chronic diastolic CHF (congestive heart failure) Code(s): I50.33 - ACUTE ON CHRONIC DIASTOLIC (CONGESTIVE) HEART FAILURE Status : Acute (6) Chronic anticoagulation Code(s): Z79.01 - NATURALIST (CURRENT) USE OF ANTICOAGULANTS Status: Chronic (7) H/O cardiac pacemaker Code(s): Z95.0 - PRESENCE OF CARDIAC PACEMAKER Status: Chronic (8) HTN (hypertension) Code(s): I10 - ESSENTIAL (PRIMARY) HYPERTENSION Status: Chronic Qualifiers: Hypertension type: essential hypertension Qualified Code(s): I10 - Essential (primary) hypertension (9) CLEMENCIA (obstructive sleep apnea) Code(s): G47.33 - OBSTRUCTIVE SLEEP APNEA (ADULT) (PEDIATRIC) Status: Chronic (10) Obesity (BMI 30-39.9) Code(s): E66.9 - OBESITY, UNSPECIFIED Status: Chronic (11) Paroxysmal atrial fibrillation Code(s): I48.0 - PAROXYSMAL ATRIAL FIBRILLATION Status: Chronic (12) Type 2 diabetes mellitus Status: Chronic Qualifiers: Diabetes mellitus manager intermediate insulin use: without manager intermediate use Diabetes mellitus complication status: with unspecified complications (13) Acute respiratory failure with hypoxia and hypercarbia Code(s): J96.01 - ACUTE RESPIRATORY FAILURE WITH HYPOXIA; J96.02 - ACUTE RESPIRATORY FAILURE WITH HYPERCAPNIA Status: Acute - Plan Symptomatic bradycardia: Appears to have been a pacemaker detection malfunction which is been resolved. Currently heart rate is stable. Supratherapeutic INR: Patient had extremely elevated INR. She received vitamin K. Currently she is back to a normal INR and warfarin has been resumed. Acute on chronic kidney disease stage III: Patient has chronic kidney disease generally with a GFR that is in the upper 30s to 50s. Currently GFR is 18.. Suspect she may have poor cardiac function leading to some cardiorenal syndrome. Nephrology consult appreciated. She has not responded to albumin infusions. Renal function continues to decline somewhat. No indications for acute dialysis. Hyperkalemia: Likely secondary to the acute worsening renal disease along with Lasix and potassium supplementation. Potassium has been withheld. She did receive a dose of Lasix last evening. In spite of that her potassium is slightly worse this morning. Open wound right great toe: Appreciate wound care input. Acute on chronic diastolic congestive heart failure: Suspect this was also partly related to the patient's bradycardia. She did receive a dose of Lasix last evening by cardiology. So far her chest x-ray is remained stable. Diabetes mellitus: Blood sugars are very well controlled. Acute hypoxic/hypercapnic respiratory failure: Currently on BiPAP. Continues to have hypercapnic respiratory acidosis. Adjustments have been made to her BiPAP. Will need repeat ABG. Resumed IV steroids. Change nebs to scheduled. Pulmonary consult. Disposition: I discussed the situation with the patient's daughter Ms. Chapa. At this point the patient remains full code and they would desire intubation. I did explain the fact the patient is suffering from heart failure respiratory failure and kidney failure. She progressed to require ventilation and dialysis it would likely be a prolonged course and would likely negatively affect her quality of life significantly should she survive that. We will get palliative care consult for goals of care and communication with the family. Patient's daughter is going to communicate with her siblings. She is in favor of intubation but would like to have a family discussion before considering any further intervention such as dialysis should they become necessary.
[2020-07-19] MEDS: cloNIDine 0.1 MG TAB PO SCH ×2 (09:08→20:43)
[2020-07-19] MEDS: Famotidine 20 MG TAB PO SCH (09:08)
[2020-07-19] MEDS: Ferrous Sulfate 325 MG TAB PO SCH ×2 (09:09→20:43)
[2020-07-19] MEDS: Warfarin Sodium 5 MG TAB PO SCH ×2 (09:21→17:26)
--- NOTE | 2020-07-19 09:32 | PRG ---
DATE OF SERVICE: 07/19/2020 SUBJECTIVE: Ms. Rico is an 85-year-old white female, who was admitted for shortness of breath. The patient has been having progressive worsening of the renal dysfunction. She developed acute shortness of breath yesterday and she was given one time dose of Lasix. Chest x-ray was relatively unchanged. Please note, the previous cardiac echo showed normal ejection fraction. She is currently on BiPAP and round the clock neb treatment. The other possibility for the shortness of breath is she may have a COPD exacerbation. OBJECTIVE: VITAL SIGNS: Blood pressure is 159/73, heart rate 70 respiratory rate is about 12, O2 saturations 100%. GENERAL: Awake, comfortable, obese, on BiPAP. SKIN: Adequate turgor. HEENT: Pinkish conjunctivae. Anicteric sclerae. No neck mass. No carotid bruits. No JVD. CHEST: No deformities. LUNGS: Decreased breath sounds. HEART: Normal sinus rhythm. No murmur. No gallops. No rubs. ABDOMEN: Globular, soft, nontender. No masses. EXTREMITIES: No edema. No deformities. MEDICATIONS: Medications of July 19, 2020, was reviewed. LABORATORY DATA: Laboratories of July 19, 2020; white count 16, hemoglobin 10.2. Sodium 135, potassium 6, chloride 101, carbon dioxide 22, BUN 56, creatinine 2.5, glucose 126, calcium 8.5. ASSESSMENT AND PLAN: 1. Mild hyperkalemia-we will give a one time dose of Kayexalate 30 g with lactulose 30 mL. No indication for any dialytic intervention. 2. Acute kidney injury on top of her chronic renal failure superimposed hemodynamically mediated renal dysfunction. Continue supportive care. As mentioned, no indication for any emergent dialysis with this patient. Continue judicious use of diuretics. 3. Shortness of breath, multifactorial etiology. Consider possible chronic obstructive pulmonary disease exacerbation. Currently around the clock neb treatment and on steroids. 4. We will recheck CBC and basic metabolic profile in a.m. Job ID: [id number]
--- NOTE | 2020-07-19 09:40 | PRG ---
DATE OF SERVICE: 07/19/2020 SUBJECTIVE: Ms. Rico was transferred to the intermediate care unit last evening due to hypoxia. She seems somewhat confused today. Her pCO2 was elevated at 80. BiPAP was used overnight. Followup ABG this morning has not been done. Chest x-ray did show bilateral effusions with left lung opacity. BNP on admission was 130. OBJECTIVE: VITAL SIGNS: Blood pressure 159/73, pulse 70, temperature afebrile. LUNGS: Minimal crackles bilaterally. HEART: Regular rate and rhythm. ABDOMEN: Soft, nontender, and nondistended. EXTREMITIES: No edema. PERTINENT LABORATORY DATA: Creatinine increased from 2.35 to 2.5, hemoglobin stable. Followup ABG with pCO2 of 67 and pH of 7.16. IMPRESSION: 1. Hypoxia. 2. Hypercapnia. 3. Renal insufficiency. 4. Diastolic dysfunction. 5. Atrial fibrillation. RECOMMENDATIONS: Continue BiPAP. This may be why she has some underlying confusion. Her PO2 was also decreased at 89. I would recommend repeating her BNP. May consider Lasix if elevated. Her pericardial effusion does not appear to compromise her right atrial or right ventricle, it is mild to moderate in nature. Continue to follow closely. Job ID: [id number]
--- NOTE | 2020-07-19 10:24 | CON ---
DATE OF CONSULTATION: 07/18/2020 REASON FOR CONSULTATION: Recurrent shortness of breath. HISTORY OF PRESENT ILLNESS: Ms. Rico is a very pleasant 85-year-old woman who I have seen and evaluated . Does have a previous history of hypertension, chronic atrial fibrillation status post AV crystal ablation and pacemaker. She also has pulmonary hypertension. She recently presented with increased shortness of breath. She also has underlying renal insufficiency. No chest pain or pressure noted. PAST MEDICAL HISTORY: Hypertension, atrial fibrillation status post AV crystal ablation and pacemaker placement, pulmonary hypertension, mitral regurgitation, moderate to severe asthma, sleep apnea, gout, colon cancer, and hyperlipidemia. HOME MEDICATIONS: Include: 1. Coumadin. 2. Albuterol. 3. Ventolin. 4. Lasix. 5. Iron. 6. Metoprolol. 7. Glipizide. 8. Tylenol. 9. Atorvastatin. PAST SURGICAL HISTORY: Hysterectomy, cholecystectomy, colon resection, and brain surgery. SOCIAL HISTORY: No current tobacco or alcohol use. REVIEW OF SYSTEMS: A 10-point review of systems was reviewed as above, otherwise negative. PHYSICAL EXAMINATION: GENERAL: Patient is a pleasant female, who is in no acute distress. The patient appears their stated age. VITAL SIGNS: Blood pressure 159/73, pulse 70, temperature afebrile. NEUROLOGIC: The patient is alert and oriented x3 with no focal neurologic deficits. HEENT: Sclerae without icterus. Mouth has moist mucous membranes with normal pallor. NECK: No JVD. Carotid upstroke brisk. No bruits bilaterally. LUNGS: Mild wheezing noted bilaterally. BACK: No scoliosis or kyphosis. CARDIAC: Regular rate and rhythm with normal S1 and S2. No S3 or S4 noted. No significant rubs, murmurs, thrills, or gallops noted throughout the precordium. PMI is not displaced. There is no parasternal heave. ABDOMEN: Soft, nontender, nondistended. No peritoneal signs present. No hepatosplenomegaly. No abnormal striae. EXTREMITIES: 2+ femoral and 2+ dorsalis pedis pulses. No cyanosis, clubbing, or edema. SKIN: No gross abnormalities. PERTINENT LABORATORY DATA: Hemoglobin 10.2, hematocrit 33.5, and white blood cell count 16,000. Echo with Doppler shows LVEF 50% to 55%. Diastolic function suggesting grade 2 diastolic dysfunction. IMPRESSION: 1. Shortness of breath. 2. Small to moderate-sized pericardial effusion. 3. Status post pacemaker. 4. Sleep apnea. 5. Pulmonary hypertension. RECOMMENDATIONS: The patient does have underlying chronic renal insufficiency which compounds her issue. She has pulmonary hypertension, renal insufficiency, in addition to advanced diastolic dysfunction. We will treat medically. We will give her a dose of Lasix IV. May also need pulmonary support. Overall, LVEF does look normal. Otherwise, I have no further recommendations. Job ID: [id number]
[2020-07-19] MEDS ORDERED: Furosemide 40 MG/4 ML VIAL SLOW IVP SCH (10:30)
--- NOTE | 2020-07-19 11:47 | CON ---
DATE OF CONSULTATION: 07/19/2020 TIME SPENT: 50 minutes time. REASON FOR CONSULTATION: Shortness of breath. HISTORY OF PRESENT ILLNESS: The patient is an 85-year-old female with a multitude of chronic medical problems, who presented with increasing shortness of breath, congestive heart failure, and fluid overload. She was found to have an elevated BUN and creatinine, looks like she was given albumin yesterday. She decompensated in terms of her breathing, had to be brought to the IMCU and placed on BiPAP. She was found to have a severe respiratory acidosis and her BiPAP settings were increased. She has been seen several times in the past by our group. It is always felt that she should be converted to a palliative type status, but her daughter apparently has refused that. She has had 3 endotracheal intubations in the past. PAST MEDICAL HISTORY: 1. Chronic kidney disease. 2. CLEMENCIA-noncompliant. 3. Atrial fibrillation. 4. Diastolic heart failure. 5. Question of COPD. 6. Colon cancer. 7. Diabetes mellitus type 2. PAST SURGICAL HISTORY: 1. Colonoscopy. 2. Hysterectomy. 3. Ileostomy and subsequent reversal. 4. Pacemaker placement. 5. Resection of a rectal cancer. 6. Craniotomy for benign tumor. 7. Tonsillectomy. SOCIAL HISTORY: Does not smoke. Does not consume alcohol. ALLERGIES: NONE. MEDICATIONS: Inpatient medications reviewed, list under active medication section in the chart. Outpatient medications: 1. Ventolin. 2. Clonidine. 3. Metoprolol. 4. Furosemide. 5. Potassium. 6. Atorvastatin. 7. Warfarin. 8. Iron sulfate. PHYSICAL EXAMINATION: VITAL SIGNS: Temperature 97.4, pulse 70, blood pressure 137/68, and O2 saturation 99%. GENERAL: The patient is awake. She is able to verbalize when BiPAP mask is lifted off. HEENT: Unremarkable. NECK: No adenopathy or JVD. LUNGS: Poor air movement. CARDIAC: S1 and S2, regular. ABDOMEN: Obese, soft, and nontender. EXTREMITIES: 2+ edema in her legs. LABORATORY DATA: Sodium 135, potassium 6, chloride 101, CO2 of 22, BUN 56, creatinine 2.5, and glucose 126. White blood cell count 16, hematocrit 33.5, and platelet count 635. The pH of 7.16, pCO2 of 67, and PO2 of 96. X-ray shows cardiomegaly and pulmonary edema. ASSESSMENT: 1. Diastolic heart failure with profound fluid overload. 2. Acute on chronic hypoxic and hypercapnic respiratory failure. 3. Chronic kidney disease. 4. Other medical problems as listed above. PLAN: 1. We would continue the BiPAP. 2. She needs to be diuresed, even though that will probably hurt her BUN and creatinine in the short term. 3. I am equivocal about the steroids, but for now we will continue that. Job ID: [id number]
--- NOTE | 2020-07-19 12:26 | PDOC.PALCO ---
Palliative Care Consult - Consult Details Requesting Physician: Dr Berrios Reason for Consult: goals of care, advance directives assistance, family support Family Members Present: Spoke with daughter Marisol Thomas (MPOA) - Pertinent HPI Ms Rico is a 75 year old female who is familiar to Palliative Care. She lives in an independent home setting with her daughter Marisol Thomas who is also MPOA. She is primarily bed bound, and cristiana lift is used when patient is able to tolerate being up in wheelchair. Daughter reports/ as well as confirmed in review of records that patient experienced an increase in shortness of breath and edema to lower extremities. Identified in emergency room that although pacemaker was set at 70 she was experiencing bradycardia, pacer reset by [employer] and functioning appropriately. Evaluation in the emergency room identified mild congestive heart failure exacerbation with pulmonary congestion and pleural effusions. Admitted for further evaluation and medical management. Patient experienced respiratory distress after admission and was transferred to [facility], placed on Bipap. Continues with worsening renal function and hypercapnia. - Social History Smoking Status: Never smoker Smoking: no tobacco exposure Alcohol Use: none Living Situation: with family/parents - Medications MAR Reviewed: Yes - Allergies Allergies/Adverse Reactions: Allergies Allergy/AdvReac Type Severity Reaction Status Date / Time No Known Allergies Allergy Verified 07/16/20 15:35 - Subjective On Bipap, appears to have labored respirations but denies respiratory difficulty. Awake, smiles, but poor historian for ROS - ROS Non Response: due to mental status - Objective Vital Signs: Vital Signs - Most Recent Temp Pulse Resp BP Pulse Ox 96.6 F L 70 22 H 137/68 99 07/19/20 11:43 07/19/20 10:48 07/19/20 10:48 07/19/20 09:08 07/19/20 10:48 Palliative Performance Scale: 30 - Physical Exam Constitutional: confusion, ill appearing HEENT: moist MMs, sclera anicteric Respiratory: diminished lung sound, labored respirations Deviation from normal: Bipap Cardiovascular: RRR, diminished peripheral pulses Gastrointestinal: soft, non-tender, incontinent Deviation from normal: Obese Genitourinary: mast catheter Musculoskeletal: edema present, diffuse muscle atrophy Neurology: no focal deficits Skin: cap refill <2 seconds - Problem List (1) Acute on chronic diastolic CHF (congestive heart failure) Code(s): I50.33 - ACUTE ON CHRONIC DIASTOLIC (CONGESTIVE) HEART FAILURE Current Visit: No Status: Acute (2) Acute renal failure superimposed on stage 3 chronic kidney disease Code(s): N17.9 - ACUTE KIDNEY FAILURE, UNSPECIFIED; N18.3 - CHRONIC KIDNEY DISEASE, STAGE 3 (MODERATE) Current Visit: No Status: Acute (3) Acute respiratory failure with hypoxia Code(s): J96.01 - ACUTE RESPIRATORY FAILURE WITH HYPOXIA Current Visit: No Status: Acute (4) Morbid obesity with BMI of 45.0-49.9, adult Code(s): E66.01 - MORBID (SEVERE) OBESITY DUE TO EXCESS CALORIES; Z68.42 - BODY MASS INDEX (BMI) 45.0-49.9, ADULT Current Visit: No Status: Acute (5) Palliative care encounter Code(s): Z51.5 - ENCOUNTER FOR PALLIATIVE CARE Current Visit: No Status: Acute - Plan/Recommendations Plan: Spoke with patient daughter Marisol Thomas who is also MPOA at length. Discussed disease trajectory and progression. She states she has spoken to the patients other two living children Zahira and Jesus Alberto and all are in agreement to continue with current and aggressive measures. Agreeable to intubation if needed to sustain life as well as dialysis. However Marisol Thomas confirmed that they would not desire a Trach or correction dialysis. The interventions would be to see "if she had a chance to come home again". Discussed meaningful recovery, recurrent hospitalizations and decline. Discussed "Hope for the best and plan for the worst". Emotional Support and Therapeutic listening. Patient is part . Had 5 children, she has two daughters that have lost their life to cancer. She has three living children Marisol Thomas, Zahira, and Jesus Alberto. Multiple grandchildren and great grandchildren Her grandchildren call her Grammie and great grandchildren call her Big Grammie. Communicated with Dr Berrios Palliative care will revisit Goal of Care [60] minutes spent on this encounter with >50% of the time in counseling and coordination of care. Thank you for this very appropriate consult.
[2020-07-19] MEDS: methylPREDNISolone Sod Succ 40 MG VIAL IVP SCH ×2 (12:45→17:34)
[2020-07-19 14:13] LABS: Anion Gap 23 mmol/L (10-20); BUN (Urea Nitrogen) 63 mg/dL (9.8-20.1); Calc. Creatinine Clearance 26 mL/min (70-130); Calcium 8.6 mg/dL (7.8-10.44); Carbon Dioxide 16 mmol/L (23-31); Chloride 109 mmol/L (98-107); Estimated GFR-MDRD 17; Glucose 112 mg/dL (83-110); Sodium 141 mmol/L (136-145)
[2020-07-19 14:24] LABS: Potassium 7.3 mmol/L (3.5-5.1)
[2020-07-19] MEDS ORDERED: Calcium Gluc 4.6 MEQ/10 ML (100 MG/ML) SLOW IVP ONE (14:30)
[2020-07-19] MEDS ORDERED: Calcium Gluconate 4.6 MEQ in Sodium Chloride 0.9% 100 ML IVPB SCH (14:45)
--- NOTE | 2020-07-19 15:14 | PDOC.FMACP ---
Advance Care Planning - Problem (1) Acute on chronic diastolic CHF (congestive heart failure) Status: Acute Code(s): I50.33 - ACUTE ON CHRONIC DIASTOLIC (CONGESTIVE) HEART FAILURE (2) Acute renal failure superimposed on stage 3 chronic kidney disease Status: Acute Code(s): N17.9 - ACUTE KIDNEY FAILURE, UNSPECIFIED; N18.3 - CHRONIC KIDNEY DISEASE, STAGE 3 (MODERATE) (3) Acute respiratory failure with hypoxia Status: Acute Code(s): J96.01 - ACUTE RESPIRATORY FAILURE WITH HYPOXIA (4) Morbid obesity with BMI of 45.0-49.9, adult Status: Acute Code(s): E66.01 - MORBID (SEVERE) OBESITY DUE TO EXCESS CALORIES ; Z68.42 - BODY MASS INDEX (BMI) 45.0-49.9, ADULT (5) Palliative care encounter Status: Acute Code(s): Z51.5 - ENCOUNTER FOR PALLIATIVE CARE - Note Participants: family, palliative care Summary: Advanced Care Planning was discussed. The diagnosis, prognosis and goals of care were discussed. Appropriate forms and documentation to accomplish the goals of care were discussed. All questions were answered. The Palliative Care Team will be engaged to assist with completion of any outstanding forms that are needed.
[2020-07-19 17:05] LABS: SARS-CoV-2 MS2 Positive; SARS-CoV-2 N Gene Negative; SARS-CoV-2 S Gene Negative; SARS-CoV-2 by NAA Not Detected (NotDetected); SARS-CoV-2 orf1ab Negative
[2020-07-19 19:50] LABS: Anion Gap 22 mmol/L (10-20); BUN (Urea Nitrogen) 62 mg/dL (9.8-20.1); Calc. Creatinine Clearance 26 mL/min (70-130); Calcium 8.6 mg/dL (7.8-10.44); Carbon Dioxide 18 mmol/L (23-31); Chloride 108 mmol/L (98-107); Estimated GFR-MDRD 17; Glucose 135 mg/dL (83-110); Potassium 5.8 mmol/L (3.5-5.1); Sodium 142 mmol/L (136-145)
[2020-07-19] MEDS: Atorvastatin Calcium 40 MG TAB PO SCH (20:43)
[2020-07-19] MEDS ORDERED: Sodium Chloride 0.9% 250 ML 250 ML IVPB SCH (23:00)
[2020-07-20] MEDS: methylPREDNISolone Sod Succ 40 MG VIAL IVP SCH ×3 (00:41→11:16)
[2020-07-20] MEDS: cefTRIAXone\\ROCEPHIN 2 GM in Sodium Chloride 0.9% 100 ML IVPB SCH (00:42)
[2020-07-20 03:42] LABS: #Lymphocytes 0.6 thou/uL (1.20-3.40); #Monocytes 0.2 thou/uL (0.11-0.59); #Neutrophils 8.6 thou/uL (1.40-6.50); %Eosinophils 0.1 % (0.0-10.0); %Lymphocytes 5.8 % (21.0-51.0); %Monocytes 2.6 % (0.0-10.0); %Neutrophils 91.5 % (42.0-75.0); Hemoglobin 10.4 g/dL (12.0-16.0); Mean Corpuscular HGB CONC 30.1 g/dL (32.0-36.0); Mean Corpuscular Hemoglobin 25.9 pg (27.0-31.0); Mean Corpuscular Volume 86.1 fL (78.0-98.0); Mean Platelet Volume 8.1 fL (7.4-10.4); Platelet Count 541 thou/uL (130-400); RBC Distribution Width 14.2 % (11.5-14.5); Red Blood Cell (RBC) Count 4.02 mill/uL (4.20-5.40); White Blood Cell (WBC) Count 9.4 thou/uL (4.8-10.8)
[2020-07-20 03:47] LABS: Prothrombin Time 30.5 sec (12.0-14.7)
[2020-07-20 04:04] LABS: Anion Gap 20 mmol/L (10-20); BUN (Urea Nitrogen) 64 mg/dL (9.8-20.1); Calc. Creatinine Clearance 26 mL/min (70-130); Calcium 8.4 mg/dL (7.8-10.44); Carbon Dioxide 23 mmol/L (23-31); Chloride 103 mmol/L (98-107); Estimated GFR-MDRD 17; Glucose 152 mg/dL (83-110); Potassium 4.7 mmol/L (3.5-5.1); Sodium 141 mmol/L (136-145)
[2020-07-20] MEDS: cloNIDine 0.1 MG TAB PO SCH ×2 (08:52→20:56)
[2020-07-20] MEDS: Ferrous Sulfate 325 MG TAB PO SCH ×2 (08:53→20:56)
[2020-07-20] MEDS: Famotidine 20 MG TAB PO SCH (08:53)
[2020-07-20] MEDS ORDERED: Furosemide 40 MG/4 ML VIAL SLOW IVP SCH (11:00)
--- NOTE | 2020-07-20 11:19 | PRG ---
DATE OF SERVICE: SUBJECTIVE: The patient is doing much better. I was able to take her off BiPAP today and she is very conversant. OBJECTIVE: VITAL SIGNS: Temperature 96.6, pulse 70, blood pressure 123/52, O2 saturation 100%. HEENT: Unremarkable. NECK: No JVD. LUNGS: Much better air movement. CARDIAC: S1 and S2, regular. ABDOMEN: Soft. EXTREMITIES: No edema. LABORATORY DATA: White blood cell count 9.4, hematocrit 34.6, and platelet count 541. INR is 3.0. Sodium 141, potassium 4.7, chloride 103, CO2 of 23, BUN 64, creatinine 2.6, glucose 152. ASSESSMENT: 1. Acute hypoxic and hypercapnic respiratory failure requiring BiPAP. 2. Diastolic heart failure. 3. Chronic kidney disease. PLAN: 1. Try her off the BiPAP. 2. Continue gentle diuresis as tolerated. The dose of diuretics yesterday did not substantially increase her BUN or creatinine. 3. Would consider weaning her steroid dose. Job ID: [id number]
--- NOTE | 2020-07-20 11:43 | PRG ---
DATE OF SERVICE: SUBJECTIVE: Ms. Rico is an 85-year-old white female, seen by the Renal Service for acute kidney injury on top of her chronic renal failure. She came in for generalized malaise, shortness of breath. She was noted to have worsening shortness of breath in the last few days. She was initially diuresed, but chest x-ray did not reveal any worsening pulmonary edema. Possibility of COPD exacerbation was considered and she is now being treated for this. Her breathing is much improved this morning. In addition, she was hyperkalemic yesterday and this improved with Kayexalate. OBJECTIVE: VITAL SIGNS: Blood pressure is 127/71, heart rate 70, respiratory rate 18, O2 saturation 100%. GENERAL: Awake, alert, comfortable, not in distress. SKIN: Adequate turgor. HEENT: She has pinkish conjunctivae. Anicteric sclerae. No neck mass. No carotid bruits. No JVD. CHEST: No deformities. LUNGS: Clear breath sounds. HEART: Normal sinus rhythm. No murmur. No gallops. No rubs. ABDOMEN: Globular, soft, nontender. No masses. EXTREMITIES: Trace edema. MEDICATIONS: Medications of July 20, 2020 were reviewed. LABORATORY DATA: July 20, 2020; sodium 141, potassium 4.7, chloride 103, carbon dioxide 23, BUN 64, creatinine 2.64, calcium 8.4. Hemoglobin 10.4. ASSESSMENT AND PLAN: 1. Shortness of breath, multifactorial etiology. This could be a chronic obstructive pulmonary disease exacerbation and/or ? of congestive heart failure. Currently, on Lasix and on steroids as well as neb treatment. Breathing is much improved. Continue to observe the patient's renal function. 2. Acute kidney injury, superimposed hemodynamically-mediated renal dysfunction. Stable renal function in the last 24 hours. No indication for any dialytic intervention. 3. Hyperkalemia much improved after Kayexalate. Plan is to continue to monitor renal function closely. We will consider rechecking CBC, base met. Job ID: [id number]
--- NOTE | 2020-07-20 14:38 | PDOC.HOSPP ---
- Subjective Encounter Date: 07/20/20 Subjective: Patient is feeling better today. She does not have much recollection of the last couple of days. Feels like she is generally breathing more comfortably. - Objective Vital Signs & Weight: Vital Signs (12 hours) Temp Pulse Resp BP Pulse Ox 07/20/20 14:19 70 21 H 97 07/20/20 12:00 100 07/20/20 11:19 96.7 F L 07/20/20 10:29 70 18 100 07/20/20 08:52 136/55 L 07/20/20 08:01 70 20 100 07/20/20 08:00 70 16 100 07/20/20 07:42 100 07/20/20 07:30 96.6 F L 07/20/20 03:52 97.8 F Weight Admit Weight 231 lb 9.6 oz Weight 229 lb Most Recent Monitor Data Heart Rate from ECG 70 NIBP 130/63 NIBP BP-Mean 85 Respiration from ECG 26 SpO2 98 I&O: 07/19/20 07/20/20 07/21/20 06:59 06:59 06:59 Intake Total 1160 100 Output Total 300 225 Balance 860 -125 Result Diagrams: 07/20/20 03:32 07/20/20 03:32 Additional Labs: Accuchecks 07/20/20 07/20/20 07/19/20 10:47 05:46 20:34 POC Glucose 128 H 149 H 150 H 07/19/20 16:42 POC Glucose 139 H Hospitalist ROS - Medication Medications: Active Medications Generic Name Dose Route Start Last Admin Trade Name Jeff PRN Reason Stop Dose Admin Albuterol/Ipratropium 3 ml 07/19/20 10:30 07/20/20 14:19 Duoneb NEB 3 ml [id number] HAILEY Administration Atorvastatin Calcium 40 mg 07/17/20 21:00 07/19/20 20:43 Lipitor PO 40 mg HS HAILEY Administration Clonidine 0.1 mg 07/17/20 09:00 07/20/20 08:52 Catapres PO 0.1 mg BID HAILEY Administration Famotidine 20 mg 07/17/20 09:00 07/20/20 08:53 Pepcid PO 20 mg DAILY HAILEY Administration Ferrous Sulfate 325 mg 07/17/20 09:00 07/20/20 08:53 Feosol PO 325 mg BID HAILEY Administration Ceftriaxone Sodium 2 gm/ 100 mls @ 200 mls/hr 07/19/20 01:00 07/20/20 00:42 Sodium Chloride IVPB 100 mls Q24HR HAILEY Administration Metoprolol Succinate 50 mg 07/17/20 09:00 07/20/20 08:53 Toprol Xl PO 50 mg DAILY HAILEY Administration Warfarin Sodium 5 mg 07/19/20 17:00 07/19/20 17:26 Coumadin PO 5 mg 1700 HAILEY Administration - Exam General Appearance: NAD, awake alert Eye: PERRL, anicteric sclera ENT: normocephalic atraumatic, no oropharyngeal lesions, moist mucosa Neck: supple, symmetric, no JVD, no thyromegaly, no lymphadenopathy, no carotid bruit Heart: RRR, no murmur, no gallops, no rubs, normal peripheral pulses Respiratory: CTAB, no wheezes, no rales, no ronchi, normal chest expansion, no tachypnea, normal percussion Respiratory - other findings: Diminished Gastrointestinal: soft, non-tender, non-distended, normal bowel sounds, no palpable masses, no hepatomegaly, no splenomegaly, no bruit Extremities: no cyanosis, no clubbing, no edema Musculoskeletal: generalized weakness Psychiatric: normal affect, normal behavior, A&O x 3 Hosp A/P (1) Symptomatic bradycardia Code(s): R00.1 - BRADYCARDIA, UNSPECIFIED Status: Acute (2) Acute renal failure superimposed on stage 3 chronic kidney disease Code(s): N17.9 - ACUTE KIDNEY FAILURE, UNSPECIFIED; N18.3 - CHRONIC KIDNEY DISEASE, STAGE 3 (MODERATE) Status: Acute (3) Open wound of right great toe Code(s): S91.101A - UNSP OPEN WOUND OF RIGHT GREAT TOE W/O DAMAGE TO NAIL, INIT Status: Acute (4) Hyperkalemia Code(s): E87.5 - HYPERKALEMIA Status: Acute (5) Acute on chronic diastolic CHF (congestive heart failure) Code(s): I50.33 - ACUTE ON CHRONIC DIASTOLIC (CONGESTIVE) HEART FAILURE Status : Acute (6) Chronic anticoagulation Code(s): Z79.01 - NUT CRACKER (CURRENT) USE OF ANTICOAGULANTS Status: Chronic (7) H/O cardiac pacemaker Code(s): Z95.0 - PRESENCE OF CARDIAC PACEMAKER Status: Chronic (8) HTN (hypertension) Code(s): I10 - ESSENTIAL (PRIMARY) HYPERTENSION Status: Chronic Qualifiers: Hypertension type: essential hypertension Qualified Code(s): I10 - Essential (primary) hypertension (9) CLEMENCIA (obstructive sleep apnea) Code(s): G47.33 - OBSTRUCTIVE SLEEP APNEA (ADULT) (PEDIATRIC) Status: Chronic (10) Obesity (BMI 30-39.9) Code(s): E66.9 - OBESITY, UNSPECIFIED Status: Chronic (11) Paroxysmal atrial fibrillation Code(s): I48.0 - PAROXYSMAL ATRIAL FIBRILLATION Status: Chronic (12) Type 2 diabetes mellitus Status: Chronic Qualifiers: Diabetes mellitus senior living insulin use: without senior living use Diabetes mellitus complication status: with unspecified complications (13) Acute respiratory failure with hypoxia and hypercarbia Code(s): J96.01 - ACUTE RESPIRATORY FAILURE WITH HYPOXIA; J96.02 - ACUTE RESPIRATORY FAILURE WITH HYPERCAPNIA Status: Acute - Plan Symptomatic bradycardia: Appears to have been a pacemaker detection malfunction which is been resolved. Currently heart rate is stable. Supratherapeutic INR: Patient had extremely elevated INR. She received vitamin K. Currently she is back to a normal INR and warfarin has been resumed. Acute on chronic kidney disease stage III: Patient has chronic kidney disease generally with a GFR that is in the upper 30s to 50s. Currently GFR is 17. This has been stable over the past 24 hours even with the diuresis. Suspect she may have poor cardiac function leading to some cardiorenal syndrome. Nephrology consult appreciated. Hyperkalemia: Likely secondary to the acute worsening renal disease along with Lasix and potassium supplementation. Potassium has been withheld. Improved with Lasix and Kayexalate. Continue to monitor. Open wound right great toe: Appreciate wound care input. Acute on chronic diastolic congestive heart failure: Suspect this was also partly related to the patient's bradycardia. She has been diuresed and appears somewhat better. Diabetes mellitus: Blood sugars are very well controlled. Acute hypoxic/hypercapnic respiratory failure: Off of BiPAP and on nasal cannula. Appears to be doing well with that. May be underlying COPD exacerbation. Reduce the dose of the IV steroids. Change nebs to scheduled. Pulmonary consult.
[2020-07-20] MEDS: Warfarin Sodium 5 MG TAB PO SCH (16:42)
[2020-07-20] MEDS: Atorvastatin Calcium 40 MG TAB PO SCH (20:56)
[2020-07-20] MEDS ORDERED: methylPREDNISolone Sod Succ 40 MG VIAL IVP SCH (23:59)
[2020-07-21] MEDS: cefTRIAXone\\ROCEPHIN 2 GM in Sodium Chloride 0.9% 100 ML IVPB SCH (02:59)
[2020-07-21 06:40] LABS: Prothrombin Time 45.9 sec (12.0-14.7)
[2020-07-21 06:41] LABS: Anion Gap 14 mmol/L (10-20); BUN (Urea Nitrogen) 70 mg/dL (9.8-20.1); Calc. Creatinine Clearance 25 mL/min (70-130); Calcium 8.7 mg/dL (7.8-10.44); Carbon Dioxide 29 mmol/L (23-31); Chloride 104 mmol/L (98-107); Estimated GFR-MDRD 17; Glucose 160 mg/dL (83-110); Potassium 4.1 mmol/L (3.5-5.1); Sodium 143 mmol/L (136-145)
[2020-07-21] MEDS: Warfarin Sodium 5 MG TAB PO SCH (07:34)
[2020-07-21] MEDS: Famotidine 20 MG TAB PO SCH (07:54)
[2020-07-21] MEDS: cloNIDine 0.1 MG TAB PO SCH ×2 (07:54→21:03)
[2020-07-21] MEDS: Ferrous Sulfate 325 MG TAB PO SCH ×2 (07:55→21:03)
[2020-07-21] MEDS ORDERED: Warfarin Sodium 2 MG TAB PO SCH (08:30)
[2020-07-21] MEDS ORDERED: predniSONE 20 MG TAB PO SCH (08:45)
--- NOTE | 2020-07-21 08:45 | PDOC.HOSPP ---
- Subjective Encounter Date: 07/21/20 (f/u acute resp failure) Encounter Time: 08:42 Subjective: Pt reports she is feeling much better. Denies any difficulty breathing, denies cp/n/v/abd pain. Reports her appetite is improving. - Objective Vital Signs & Weight: Vital Signs (12 hours) Temp Pulse Resp BP Pulse Ox 07/21/20 07:54 153/59 H 07/21/20 07:16 97.4 F L 07/21/20 06:19 70 21 H 97 07/21/20 03:35 97.6 F 07/21/20 03:20 21 H 99 07/21/20 02:18 99 07/20/20 23:20 97.2 F L 07/20/20 23:04 99 07/20/20 20:56 134/66 Weight Admit Weight 231 lb 9.6 oz Weight 229 lb Most Recent Monitor Data Heart Rate from ECG 71 NIBP 153/59 NIBP BP-Mean 90 Respiration from ECG 20 SpO2 95 I&O: 07/20/20 07/21/20 07/22/20 06:59 06:59 06:59 Intake Total 100 225 Output Total 225 425 Balance -125 -200 Result Diagrams: 07/20/20 03:32 07/21/20 06:12 Additional Labs: Accuchecks 07/21/20 07/20/20 07/20/20 05:45 20:34 16:47 POC Glucose 177 H 196 H 126 H 07/20/20 10:47 POC Glucose 128 H EKG Reviewed by me: Yes (tele - paced rhythm 70's) Hospitalist ROS - Medication Medications: Active Medications Generic Name Dose Route Start Last Admin Trade Name Freq PRN Reason Stop Dose Admin Albuterol/Ipratropium 3 ml 07/19/20 10:30 07/21/20 06:19 Duoneb NEB 3 ml [id number] HAILEY Administration Atorvastatin Calcium 40 mg 07/17/20 21:00 07/20/20 20:56 Lipitor PO 40 mg HS HAILEY Administration Clonidine 0.1 mg 07/17/20 09:00 07/21/20 07:54 Catapres PO 0.1 mg BID HAILEY Administration Ferrous Sulfate 325 mg 07/17/20 09:00 07/21/20 07:55 Feosol PO 325 mg BID HAILEY Administration Ceftriaxone Sodium 2 gm/ 100 mls @ 200 mls/hr 07/19/20 01:00 07/21/20 02:59 Sodium Chloride IVPB 100 mls Q24HR HAILEY Administration Metoprolol Succinate 50 mg 07/17/20 09:00 07/21/20 07:55 Toprol Xl PO 50 mg DAILY HAILEY Administration - Exam General Appearance: NAD Heart: RRR Heart - other findings: 2/6 Systolic murmur Respiratory - other findings: decreased breath sounds bilateral to mid-lung field Gastrointestinal: soft, non-tender, non-distended, normal bowel sounds Extremities: 1+ LE edema Extremities - other findings: bilateral Psychiatric: normal affect Hosp A/P (1) Acute on chronic diastolic CHF (congestive heart failure) Code(s): I50.33 - ACUTE ON CHRONIC DIASTOLIC (CONGESTIVE) HEART FAILURE Status : Acute (2) Atrial fibrillation Code(s): I48.91 - UNSPECIFIED ATRIAL FIBRILLATION Status: Chronic Qualifiers: Atrial fibrillation type: longstanding persistent Qualified Code(s): I48.11 - Longstanding persistent atrial fibrillation (3) Symptomatic bradycardia Code(s): R00.1 - BRADYCARDIA, UNSPECIFIED Status: Resolved (4) Acute renal failure superimposed on stage 3 chronic kidney disease Code(s): N17.9 - ACUTE KIDNEY FAILURE, UNSPECIFIED; N18.3 - CHRONIC KIDNEY DISEASE, STAGE 3 (MODERATE) Status: Acute (5) Acute respiratory failure with hypoxia and hypercarbia Code(s): J96.01 - ACUTE RESPIRATORY FAILURE WITH HYPOXIA; J96.02 - ACUTE RESPIRATORY FAILURE WITH HYPERCAPNIA Status: Acute (6) Anemia Code(s): D64.9 - ANEMIA, UNSPECIFIED Status: Chronic Qualifiers: Chronic kidney disease stage: stage 3 (moderate) (7) HTN (hypertension) Code(s): I10 - ESSENTIAL (PRIMARY) HYPERTENSION Status: Chronic Qualifiers: Hypertension type: essential hypertension Qualified Code(s): I10 - Essential (primary) hypertension (8) CLEMENCIA (obstructive sleep apnea) Code(s): G47.33 - OBSTRUCTIVE SLEEP APNEA (ADULT) (PEDIATRIC) Status: Chronic - Plan Acute resp failure - improved - likely multifactorial with heart failure, copd with exacerbation. Appreciate Pulmonology consult - wean oxygen as tolerated - on IV solumedrol - change to oral prednisone and anticipate weaning over the next few days while monitoring resp status Sx bradycardia - resolved, pacemaker functioning LAKEISHA with CKD - renal function stable - appreciate Neprhology consult chronic a fib with supratherapeutic INR - Pharmacy to dose request of coumadin - d/c dose today - goal is INR 2-3 UTI with Klebsiella - On Rocephin - plan for 5 day course Acute on chronic diastolic HF - s/p diuresis CLEMENCIA - needs f/u with Pulm as an outpatient as she does not have a CPAP at home - hers stopped functioning about a year ago transfer to tele pt consult dvt prophy - on coumadin and supratherapeutic gi prophy - not indicated code status full anticipate d/c in the next 1-2 days based on input from consultants pt remains at high risk given age, comorbidities and current presentation
[2020-07-21] MEDS: HumaLOG 300 UNITS/3 ML VIAL SC PRN ×3 (10:57→21:12)
--- NOTE | 2020-07-21 13:00 | PRG ---
DATE OF SERVICE: 07/21/2020 SUBJECTIVE: The patient is doing well. She is being transferred to the telemetry floor. OBJECTIVE: VITAL SIGNS: Temperature 97.4, pulse 70, blood pressure 140/63, and O2 saturation 99%. HEENT: Unremarkable. NECK: No adenopathy or JVD. CHEST: Fairly clear. CARDIAC: S1 and S2. Regular. ABDOMEN: Soft. EXTREMITIES: No edema. LABORATORY DATA: BUN 70, creatinine 2.6, sodium 143. ASSESSMENT: 1. Acute hypoxic and hypercapnic respiratory failure secondary to diastolic heart failure. 2. Chronic kidney disease. PLAN: She is being transferred to telemetry. She likely needs to be on a constant dose of diuretics. Her warfarin dose was changed because of a grossly elevated INR. Steroids have been weaned. No further pulmonary recommendations. Dr. Peterson has seen the patient in the past and will see her tomorrow. Job ID: [id number]
--- NOTE | 2020-07-21 13:43 | PRG ---
DATE OF SERVICE: 07/21/2020 SUBJECTIVE: Ms. Rico is an 85-year-old white female, followed up by the Renal Service for acute kidney injury on top of her chronic renal failure. She had presumptive hemodynamically-mediated renal dysfunction. Renal function has been fluctuating. She also has gone to acute respiratory distress. At that time, it was felt that this could have been a COPD exacerbation versus CHF. She did receive some diuretics. She has also been optimized on her COPD medications. This morning, she is feeling better. She denies any chest pain or shortness of breath. OBJECTIVE: VITAL SIGNS: Blood pressure 121/62, heart rate 72, respiratory rate 18, temperature 96.5, O2 saturation is 93%. GENERAL: She is awake, comfortable, obese, not in distress. SKIN: Adequate turgor. HEENT: Pinkish conjunctivae. Anicteric sclerae. No neck mass. No JVD. LUNGS: Clear breath sounds. No wheezing. No crackles. HEART: Normal sinus rhythm. No murmur. No gallops. No rubs. ABDOMEN: Globular, soft, nontender. No masses. Positive for trace edema. MEDICATIONS: Medications of July 21, 2020, were reviewed. LABORATORY DATA: Laboratories of July 21, 2020; sodium 143, potassium 4.1, chloride 104, carbon dioxide 29, BUN 70, creatinine 2.66, glucose 160, and calcium 8.7. On July 20, 2020; white count 9.4, hemoglobin 10.4. ASSESSMENT/PLAN: 1. Shortness of breath, multifactorial etiology, superimposed mild CHF/COPD exacerbation. Currently off diuretics. Continue current neb treatment with this patient. In addition, she is on prednisone therapy. 2. Acute kidney injury - superimposed hemodynamically-mediated renal dysfunction. Continue supportive care. Stable renal function. No indication for any emergent hemodialysis with this patient. 3. Borderline anemia. We will continue to observe. Recheck CBC, basic metabolic in a.m. Job ID: [id number]
[2020-07-21] MEDS: Furosemide 20 MG TAB PO SCH (21:03)
[2020-07-21] MEDS: Atorvastatin Calcium 40 MG TAB PO SCH (21:03)
[2020-07-22] MEDS: cefTRIAXone\\ROCEPHIN 2 GM in Sodium Chloride 0.9% 100 ML IVPB SCH (00:29)
[2020-07-22 04:21] LABS: #Basophils 0.1 thou/uL (0.0-0.2); #Lymphocytes 0.4 thou/uL (1.20-3.40); #Monocytes 0.9 thou/uL (0.11-0.59); #Neutrophils 7.8 thou/uL (1.40-6.50); %Basophils 1.1 % (0.0-1.0); %Eosinophils 0.1 % (0.0-10.0); %Lymphocytes 3.8 % (21.0-51.0); %Monocytes 9.3 % (0.0-10.0); %Neutrophils 85.7 % (42.0-75.0); Hemoglobin 10.2 g/dL (12.0-16.0); Mean Corpuscular HGB CONC 31.6 g/dL (32.0-36.0); Mean Corpuscular Hemoglobin 26.7 pg (27.0-31.0); Mean Corpuscular Volume 84.4 fL (78.0-98.0); Mean Platelet Volume 8.3 fL (7.4-10.4); Platelet Count 485 thou/uL (130-400); RBC Distribution Width 14.3 % (11.5-14.5); Red Blood Cell (RBC) Count 3.82 mill/uL (4.20-5.40); White Blood Cell (WBC) Count 9.1 thou/uL (4.8-10.8)
[2020-07-22 04:23] LABS: Prothrombin Time 51.8 sec (12.0-14.7)
[2020-07-22 04:26] LABS: INR-International Normal Ratio 5.8
[2020-07-22 04:41] LABS: Anion Gap 18 mmol/L (10-20); BUN (Urea Nitrogen) 75 mg/dL (9.8-20.1); Calc. Creatinine Clearance 25 mL/min (70-130); Calcium 8.7 mg/dL (7.8-10.44); Carbon Dioxide 24 mmol/L (23-31); Chloride 104 mmol/L (98-107); Estimated GFR-MDRD 17; Glucose 168 mg/dL (83-110); Potassium 4.3 mmol/L (3.5-5.1); Sodium 142 mmol/L (136-145)
[2020-07-22] MEDS: HumaLOG 300 UNITS/3 ML VIAL SC PRN ×4 (05:37→20:50)
[2020-07-22] MEDS: cloNIDine 0.1 MG TAB PO SCH ×2 (07:40→20:49)
[2020-07-22] MEDS: Ferrous Sulfate 325 MG TAB PO SCH ×2 (07:41→20:49)
[2020-07-22] MEDS: Furosemide 20 MG TAB PO SCH ×2 (07:41→20:50)
[2020-07-22] MEDS ORDERED: predniSONE 20 MG TAB PO SCH (08:00)
--- NOTE | 2020-07-22 08:03 | PDOC.HOSPP ---
- Subjective Encounter Date: 07/22/20 Encounter Time: 10:50 Subjective: Patient off O2 yesterday, Bipap overnight, back on 2L NC this AM. Denies complaints. States she is feeling much better. - Objective Vital Signs & Weight: Vital Signs (12 hours) Temp Pulse Resp BP BP Pulse Ox 07/22/20 07:37 70 18 07/22/20 04:45 97.5 F L 70 18 174/78 H 97 07/22/20 02:36 25 H 07/22/20 02:27 28 H 07/22/20 00:24 97.8 F 69 20 137/63 98 07/21/20 22:23 25 H 07/21/20 22:22 25 H 07/21/20 21:03 126/65 Weight Admit Weight 231 lb 9.6 oz Weight 229 lb Most Recent Monitor Data Heart Rate from ECG 70 NIBP 140/63 NIBP BP-Mean 88 Respiration from ECG 26 SpO2 99 I&O: 07/21/20 07/22/20 07/23/20 06:59 06:59 06:59 Intake Total 225 480 Output Total 425 450 Balance -200 30 Result Diagrams: 07/22/20 04:02 07/22/20 04:02 Additional Labs: Accuchecks 07/22/20 07/21/20 07/21/20 05:20 21:13 16:18 POC Glucose 172 H 269 H 248 H 07/21/20 10:43 POC Glucose 249 H Hospitalist ROS - Review of Systems Constitutional: denies: fever, chills Respiratory: denies: cough, shortness of breath Cardiovascular: denies: chest pain, palpitations Gastrointestinal: denies: nausea, vomiting, abdominal pain - Medication Medications: Active Medications Generic Name Dose Route Start Last Admin Trade Name Freq PRN Reason Stop Dose Admin Albuterol/Ipratropium 3 ml 07/19/20 10:30 07/22/20 07:37 Duoneb NEB 3 ml [id number] HAILEY Administration Atorvastatin Calcium 40 mg 07/17/20 21:00 07/21/20 21:03 Lipitor PO 40 mg HS HAILEY Administration Clonidine 0.1 mg 07/17/20 09:00 07/22/20 07:40 Catapres PO 0.1 mg BID HAILEY Administration Ferrous Sulfate 325 mg 07/17/20 09:00 07/22/20 07:41 Feosol PO 325 mg BID HAILEY Administration Furosemide 20 mg 07/21/20 21:00 07/22/20 07:41 Lasix PO 20 mg BID HAILEY Administration Ceftriaxone Sodium 2 gm/ 100 mls @ 200 mls/hr 07/19/20 01:00 07/22/20 00:29 Sodium Chloride IVPB 07/23/20 07:00 100 mls Q24HR HAILEY Administration Insulin Human Lispro 0 units 07/16/20 13:37 07/22/20 05:37 Humalog SC 2 unit .MILD SLIDING SCALE PRN Administration Mild Correctional Scale Insulin Human Lispro 0 units 07/16/20 13:37 07/21/20 21:12 Humalog SC 3 unit .BEDTIME SLIDING SC PRN Administration Bedtime Correctional Scale Metoprolol Succinate 50 mg 07/17/20 09:00 07/22/20 07:41 Toprol Xl PO 50 mg DAILY HAILEY Administration Prednisone 40 mg 07/22/20 08:00 07/22/20 07:40 Prednisone PO 40 mg QAM-WM HAILEY Administration - Exam General Appearance: NAD, awake alert ENT: moist mucosa Heart: RRR, no murmur, no gallops, no rubs Respiratory: CTAB, no wheezes, no rales, no ronchi Gastrointestinal: soft, non-tender, non-distended, normal bowel sounds Extremities: no edema Psychiatric: normal affect, normal behavior, A&O x 3 Hosp A/P (1) Acute on chronic diastolic CHF (congestive heart failure) Code(s): I50.33 - ACUTE ON CHRONIC DIASTOLIC (CONGESTIVE) HEART FAILURE Status : Acute (2) Acute renal failure superimposed on stage 3 chronic kidney disease Code(s): N17.9 - ACUTE KIDNEY FAILURE, UNSPECIFIED; N18.3 - CHRONIC KIDNEY DISEASE, STAGE 3 (MODERATE) Status: Acute (3) Atrial fibrillation Code(s): I48.91 - UNSPECIFIED ATRIAL FIBRILLATION Status: Chronic Qualifiers: Atrial fibrillation type: longstanding persistent Qualified Code(s): I48.11 - Longstanding persistent atrial fibrillation (4) Symptomatic bradycardia Code(s): R00.1 - BRADYCARDIA, UNSPECIFIED Status: Resolved (5) Acute respiratory failure with hypoxia and hypercarbia Code(s): J96.01 - ACUTE RESPIRATORY FAILURE WITH HYPOXIA; J96.02 - ACUTE RESPIRATORY FAILURE WITH HYPERCAPNIA Status: Acute (6) Anemia Code(s): D64.9 - ANEMIA, UNSPECIFIED Status: Acute (7) Chronic anticoagulation Code(s): Z79.01 - SERVICE ENGINEER (CURRENT) USE OF ANTICOAGULANTS Status: Chronic (8) HTN (hypertension) Code(s): I10 - ESSENTIAL (PRIMARY) HYPERTENSION Status: Chronic Qualifiers: Hypertension type: essential hypertension Qualified Code(s): I10 - Essential (primary) hypertension (9) CLEMENCIA (obstructive sleep apnea) Code(s): G47.33 - OBSTRUCTIVE SLEEP APNEA (ADULT) (PEDIATRIC) Status: Chronic (10) Obesity (BMI 30-39.9) Code(s): E66.9 - OBESITY, UNSPECIFIED Status: Chronic - Plan Acute resp failure - improved - likely multifactorial with heart failure, copd with exacerbation. Appreciate Pulmonology consult - wean oxygen as tolerated - changed to oral prednisone and anticipate weaning over the next few days while monitoring resp status Sx bradycardia - resolved, pacemaker functioning LAKEISHA with CKD - renal function continues to slightly worsen after started on oral Lasix, monitor closely - appreciate Nephrology consult chronic a fib with supratherapeutic INR - Pharmacy to dose coumadin - d/c dose today - goal is INR 2-3 UTI with Klebsiella - On Rocephin - day 4/ Acute on chronic diastolic HF - s/p diuresis, restarted oral diuretics yesterday CLEMENCIA - needs f/u with Pulm as an outpatient as she does not have a CPAP at home - hers stopped functioning about a year ago transfered to tele pt consult dvt prophy - on coumadin and supratherapeutic gi prophy - not indicated code status full anticipate d/c in the next 1-2 days based on input from consultants pt remains at high risk given age, comorbidities and current presentation
--- NOTE | 2020-07-22 09:12 | PRG ---
DATE OF SERVICE: 07/22/2020 SUBJECTIVE: Ms. Rico is doing much better today than she was on Wednesday. She appears much more comfortable. She recently had a hypercapnic respiratory episode, requiring MICU care. She was placed on BiPAP and has been doing much better. Her O2 saturation has been stable. OBJECTIVE: VITAL SIGNS: Blood pressure 174/78, pulse 70, temperature 97.5. LUNGS: Clear to auscultation. HEART: Regular rate and rhythm. ABDOMEN: Soft, nontender, nondistended. EXTREMITIES: No edema. PERTINENT LABORATORY DATA: Hemoglobin 10.2. Creatinine 2.7 up from 2.66. INR 5.8. IMPRESSION: 1. Hypercapnic episode. 2. Diastolic dysfunction. 3. Atrial fibrillation. RECOMMENDATIONS: 1. Coumadin managed per Pharmacy. 2. Continue metoprolol at 50 mg daily in addition to low-dose Lasix 20 mg one p.o. b.i.d. 3. Continue atorvastatin 40 mg at bedtime. 4. The patient did have an episode of 5 beats of nonsustained VT. Overall, LVEF is normal. We will continue beta-cathy therapy. Job ID: [id number]
--- NOTE | 2020-07-22 09:25 | PRG ---
DATE OF SERVICE: 07/22/2020 SERVICE: Renal Medicine. SUBJECTIVE: Ms. Rico is 85-year-old white female, who was seen by the Renal Service for acute kidney injury. We felt that this was a hemodynamically-mediated renal dysfunction. She has also gone to acute respiratory distress. She was treated with treatment for COPD as well as possible CHF. Currently, she has been started yesterday on Lasix at 20 mg p.o. b.i.d. No new complaints today. No worsening shortness of breath. No chest pain. OBJECTIVE: VITAL SIGNS: Blood pressure 165/95, heart rate 71, respiratory rate 27, and temperature 97.9, O2 saturation 100%. GENERAL: The patient is awake, alert, comfortable, not in overt distress. SKIN: Adequate turgor. HEENT: Pinkish conjunctivae. Anicteric sclerae. NECK: No neck mass. No carotid bruits. No JVD. CHEST: No deformities. LUNGS: Clear breath sounds. HEART: Normal sinus rhythm. No murmurs, no gallops, no rubs. ABDOMEN: Globular, soft, nontender. No masses. EXTREMITIES: Trace edema. MEDICATIONS: Medications of July 22, 2020, reviewed. LABORATORY DATA: Laboratories of July 22, 2020; white count 9.1, hemoglobin 10.2. Sodium 142, potassium 4.3, chloride 104, carbon dioxide 24, BUN 75, creatinine 2.7, glucose 168, and calcium 8.7. ASSESSMENT AND PLAN: 1. Acute kidney injury/chronic renal failure, slightly higher creatinine at 2.7 from 2.66 yesterday. We will continue to observe this. The Lasix may be contributing a factor. Adjust Lasix as needed. There is no indication for any dialytic intervention with this patient. 2. Shortness of breath, clinically much improved, multifactorial etiology. Being treated for chronic obstructive pulmonary disease exacerbation as well as for mild congestive heart failure. 3. We will recheck base met and CBC in a.m. Job ID: [id number]
--- NOTE | 2020-07-22 11:17 | PRG ---
DATE OF SERVICE: 07/22/2020 SUBJECTIVE: Morbidly obese female. This morning, she says she is less short of breath. X-ray shows a small left-sided pleural effusion. She has a Klebsiella in her urine, to which she received Rocephin for several days. OBJECTIVE: VITAL SIGNS: Temperature 97, pulse 71, saturations 100% on CPAP, respiratory rate 22, and blood pressure 165/95. CHEST: No wheezing. No crackles. CARDIAC: Normal S1 and S2. No gallops. ABDOMEN: No masses. LABORATORY DATA: BUN creatinine is still elevated at 75 and 2.7. White count 9000. ASSESSMENT: Urinary tract infection, chronic respiratory failure, morbid obesity, left pleural effusion. PLAN: She has multiple organ failure including the renal failure and obesity hypoventilation syndrome. At this stage, I would continue BiPAP nocturnal, slow diuresis. Input from Cardiology and Nephrology. Pulmonary is going to follow. Job ID: [id number]
--- NOTE | 2020-07-22 13:58 | PDOC.PALPN ---
Palliative Progress Note - Subjective Awake, complains of weakness and shortness of breath but states "she feels better than she did". - Objective Vital Signs: Vital Signs - Most Recent Temp Pulse Resp BP Pulse Ox 97.8 F 70 18 145/70 H 100 07/22/20 11:25 07/22/20 11:25 07/22/20 11:25 07/22/20 11:25 07/22/20 11:25 - Physical Exam Constitutional: ill appearing, mild distress HEENT: EOMI, moist MMs, sclera anicteric Respiratory: no wheezing, diminished lung sound, labored respirations Cardiovascular: RRR Gastrointestinal: non-tender Deviation from normal: obese Genitourinary: mast catheter Musculoskeletal: edema present, diffuse muscle atrophy Neurology: moves all 4 limbs, no focal deficits Skin: cap refill <2 seconds, fragile Psychiatric: A&O x 3 - Assessment (1) Acute on chronic diastolic CHF (congestive heart failure) Code(s): I50.33 - ACUTE ON CHRONIC DIASTOLIC (CONGESTIVE) HEART FAILURE Current Visit: No Status: Acute (2) Acute renal failure superimposed on stage 3 chronic kidney disease Code(s): N17.9 - ACUTE KIDNEY FAILURE, UNSPECIFIED; N18.3 - CHRONIC KIDNEY DISEASE, STAGE 3 (MODERATE) Current Visit: No Status: Acute (3) Acute respiratory failure with hypoxia Code(s): J96.01 - ACUTE RESPIRATORY FAILURE WITH HYPOXIA Current Visit: No Status: Acute (4) Morbid obesity with BMI of 45.0-49.9, adult Code(s): E66.01 - MORBID (SEVERE) OBESITY DUE TO EXCESS CALORIES; Z68.42 - BODY MASS INDEX (BMI) 45.0-49.9, ADULT Current Visit: No Status: Acute (5) Palliative care encounter Code(s): Z51.5 - ENCOUNTER FOR PALLIATIVE CARE Current Visit: No Status: Acute - Plan Plan: Hopeful for transition back to home setting. Confirms she is bedbound, total assist for ADL with the exception of she is able to feed self. Hyper life used intermittently in home setting. States he favorite thing is her grandchildren and great grandchildren. Discussed her fragile state and multiple morbidities. Discussed disease trajectory. Revisited multiple hospital stays secondary to multiple morbidities and what her Goal of Care is aside from what she believes her family desires for her. Confirm that she desires to remain with full resuscitation status, Palliative Care will further address Directive to Physician now that patient is more alert and able to be decisional. [30] minutes spent on this encounter with >50% of the time in counseling and coordination of care. - ROS Constitutional: alert, weakness ENT: dry mouth Respiratory: shortness of breath, shortness of breath with extertion Cardiology: other (Denies palpitations or chest discomfort) Musculoskeletal: arthritis/arthralgias
[2020-07-22] MEDS: Atorvastatin Calcium 40 MG TAB PO SCH (20:49)
[2020-07-23] MEDS: cefTRIAXone\\ROCEPHIN 2 GM in Sodium Chloride 0.9% 100 ML IVPB SCH (01:56)
[2020-07-23 04:41] LABS: #Lymphocytes 0.7 thou/uL (1.20-3.40); #Neutrophils 8.1 thou/uL (1.40-6.50); %Basophils 0.1 % (0.0-1.0); %Eosinophils 0.2 % (0.0-10.0); %Lymphocytes 6.7 % (21.0-51.0); %Monocytes 10.3 % (0.0-10.0); %Neutrophils 82.7 % (42.0-75.0); Hemoglobin 10.5 g/dL (12.0-16.0); Mean Corpuscular HGB CONC 30.3 g/dL (32.0-36.0); Mean Corpuscular Volume 85.8 fL (78.0-98.0); Mean Platelet Volume 8.5 fL (7.4-10.4); Platelet Count 487 thou/uL (130-400); RBC Distribution Width 14.3 % (11.5-14.5); Red Blood Cell (RBC) Count 4.05 mill/uL (4.20-5.40); White Blood Cell (WBC) Count 9.8 thou/uL (4.8-10.8)
[2020-07-23 04:46] LABS: Prothrombin Time 45.4 sec (12.0-14.7)
[2020-07-23 05:05] LABS: Anion Gap 15 mmol/L (10-20); BUN (Urea Nitrogen) 75 mg/dL (9.8-20.1); Calc. Creatinine Clearance 29 mL/min (70-130); Calcium 8.7 mg/dL (7.8-10.44); Carbon Dioxide 26 mmol/L (23-31); Chloride 104 mmol/L (98-107); Estimated GFR-MDRD 20; Glucose 145 mg/dL (83-110); Potassium 4.2 mmol/L (3.5-5.1); Sodium 141 mmol/L (136-145)
[2020-07-23] MEDS: predniSONE 20 MG TAB PO SCH (07:40)
[2020-07-23] MEDS: Furosemide 20 MG TAB PO SCH ×2 (07:40→20:19)
[2020-07-23] MEDS: cloNIDine 0.1 MG TAB PO SCH ×2 (07:40→20:19)
[2020-07-23] MEDS: Ferrous Sulfate 325 MG TAB PO SCH ×2 (07:41→20:19)
[2020-07-23] MEDS: Amlodipine 5 MG TAB PO SCH (07:43)
--- NOTE | 2020-07-23 08:40 | PRG ---
DATE OF SERVICE: 07/23/2020 SUBJECTIVE: Ms. Rico is an 85-year-old white female, seen by the Renal Service for acute kidney injury on top of her chronic renal failure. This was felt that the acute kidney injury is hemodynamically-mediated dysfunction. Her hospital course has also been marred by shortness of breath of multifactorial etiology. She has also been managed for a possible COPD and diurese gently. No other complaints. Today, she is feeling well. She currently on nocturnal BiPAP. She denies any worsening shortness of breath. OBJECTIVE: VITAL SIGNS: Blood pressure 168/80, heart rate 70, respiratory rate 22, O2 saturation 99% on 2 L, temperature 96.8. GENERAL: The patient is awake, comfortable, obese, not in distress. SKIN: Adequate turgor. HEENT: She has pinkish conjunctivae. Anicteric sclerae. No neck mass. No carotid bruits. No JVD. CHEST: No deformities. LUNGS: Decreased breath sounds. HEART: Normal sinus rhythm. No murmurs, gallops, or rubs. ABDOMEN: Globular, soft, nontender. No masses. EXTREMITIES: No edema. MEDICATIONS: July 23, 2020, was reviewed. LABORATORY DATA: July 23, 2020, which shows sodium of 141, potassium 4.2, chloride 104, carbon dioxide 26, BUN 75, creatinine 2.3 with a calcium of 8.7. ASSESSMENT AND PLAN: 1. Acute kidney injury on top of her chronic renal failure. Renal function is slowly improving. Most recent creatinine is noted at 2.3. Continue gentle diuresis. Continue supportive care. No indication for any dialytic intervention. 2. Shortness of breath. As previously mentioned, multifactorial etiology. Continue supportive care on nocturnal BiPAP, followed by Pulmonary. Job ID: [id number]
--- NOTE | 2020-07-23 10:12 | PRG ---
DATE OF SERVICE: 07/23/2020 SUBJECTIVE: An 85-year-old morbidly obese female. This morning, she says she is feeling better. OBJECTIVE: VITAL SIGNS: Temperature 98, pulse 70, respiratory rate 20, sats 97% on 2 L, and blood pressure 139/94. CHEST: Decreased breath sounds. No wheezing. CARDIAC: Normal S1, S2. No gallops. ABDOMEN: No masses. LABORATORY DATA: INR is still 4.9. Creatinine 2.3, BUN 75. ASSESSMENT: Morbid obesity, sleep apnea, chronic atrial fibrillation, azotemia, prolonged PT/INR. I will continue to hold the Coumadin for the time being. Low-dose steroids. DISPOSITION: Home any time. Job ID: [id number]
--- NOTE | 2020-07-23 10:35 | PDOC.HOSPP ---
- Subjective Encounter Date: 07/23/20 Encounter Time: 10:20 Subjective: Patient - Objective Vital Signs & Weight: Vital Signs (12 hours) Temp Pulse Resp BP Pulse Ox 07/23/20 10:27 68 18 100 07/23/20 07:37 98.4 F 70 20 136/94 H 97 07/23/20 07:28 75 20 99 07/23/20 04:00 96.8 F L 70 22 H 168/80 H 99 07/23/20 01:48 70 18 98 07/23/20 01:07 98 07/23/20 01:06 70 24 H 98 Weight Admit Weight 231 lb 9.6 oz Weight 236 lb Most Recent Monitor Data Heart Rate from ECG 70 NIBP 140/63 NIBP BP-Mean 88 Respiration from ECG 26 SpO2 99 I&O: 07/22/20 07/23/20 07/24/20 06:59 06:59 06:59 Intake Total 480 680 Output Total 450 1175 Balance 30 -495 Result Diagrams: 07/23/20 04:03 07/23/20 04:03 Additional Labs: Accuchecks 07/23/20 07/22/20 07/22/20 06:27 19:59 17:28 POC Glucose 126 H 220 H 258 H 07/22/20 10:49 POC Glucose 192 H Hospitalist ROS - Review of Systems Constitutional: denies: fever, chills Respiratory: denies: cough, shortness of breath Cardiovascular: denies: chest pain, palpitations Gastrointestinal: denies: nausea, vomiting, abdominal pain - Medication Medications: Active Medications Generic Name Dose Route Start Last Admin Trade Name Blasq PRN Reason Stop Dose Admin Albuterol/Ipratropium 3 ml 07/19/20 10:30 07/23/20 10:27 Duoneb NEB 3 ml [id number] HAILEY Administration Amlodipine Besylate 5 mg 07/23/20 09:00 07/23/20 07:43 Norvasc PO 5 mg DAILY HAILEY Administration Atorvastatin Calcium 40 mg 07/17/20 21:00 07/22/20 20:49 Lipitor PO 40 mg HS HAILEY Administration Clonidine 0.1 mg 07/17/20 09:00 07/23/20 07:40 Catapres PO 0.1 mg BID HAILEY Administration Ferrous Sulfate 325 mg 07/17/20 09:00 07/23/20 07:41 Feosol PO 325 mg BID HAILEY Administration Furosemide 20 mg 07/21/20 21:00 07/23/20 07:40 Lasix PO 20 mg BID HAILEY Administration Insulin Human Lispro 0 units 07/16/20 13:37 07/22/20 18:19 Humalog SC 4 unit .MILD SLIDING SCALE PRN Administration Mild Correctional Scale Insulin Human Lispro 0 units 07/16/20 13:37 07/22/20 20:50 Humalog SC 2 unit .BEDTIME SLIDING SC PRN Administration Bedtime Correctional Scale Metoprolol Succinate 50 mg 07/17/20 09:00 07/23/20 07:41 Toprol Xl PO 50 mg DAILY HAILEY Administration Prednisone 20 mg 07/23/20 08:00 07/23/20 07:40 Prednisone PO 20 mg QAM-WM HAILEY Administration - Exam General Appearance: NAD, awake alert ENT: moist mucosa Heart: RRR, no murmur, no gallops, no rubs Respiratory: CTAB, no wheezes, no rales, no ronchi Gastrointestinal: soft, non-tender, non-distended, normal bowel sounds Psychiatric: normal affect, normal behavior, A&O x 3 Hosp A/P (1) Acute on chronic diastolic CHF (congestive heart failure) Code(s): I50.33 - ACUTE ON CHRONIC DIASTOLIC (CONGESTIVE) HEART FAILURE Status : Acute (2) Acute renal failure superimposed on stage 3 chronic kidney disease Code(s): N17.9 - ACUTE KIDNEY FAILURE, UNSPECIFIED; N18.3 - CHRONIC KIDNEY DISEASE, STAGE 3 (MODERATE) Status: Acute (3) Atrial fibrillation Code(s): I48.91 - UNSPECIFIED ATRIAL FIBRILLATION Status: Chronic Qualifiers: Atrial fibrillation type: longstanding persistent Qualified Code(s): I48.11 - Longstanding persistent atrial fibrillation (4) Symptomatic bradycardia Code(s): R00.1 - BRADYCARDIA, UNSPECIFIED Status: Resolved (5) Acute respiratory failure with hypoxia and hypercarbia Code(s): J96.01 - ACUTE RESPIRATORY FAILURE WITH HYPOXIA; J96.02 - ACUTE RESPIRATORY FAILURE WITH HYPERCAPNIA Status: Acute (6) Anemia Code(s): D64.9 - ANEMIA, UNSPECIFIED Status: Acute (7) Chronic anticoagulation Code(s): Z79.01 - OVERNIGHT CASHIER (CURRENT) USE OF ANTICOAGULANTS Status: Chronic (8) HTN (hypertension) Code(s): I10 - ESSENTIAL (PRIMARY) HYPERTENSION Status: Chronic Qualifiers: Hypertension type: essential hypertension Qualified Code(s): I10 - Essential (primary) hypertension (9) CLEMENCIA (obstructive sleep apnea) Code(s): G47.33 - OBSTRUCTIVE SLEEP APNEA (ADULT) (PEDIATRIC) Status: Chronic (10) Obesity (BMI 30-39.9) Code(s): E66.9 - OBESITY, UNSPECIFIED Status: Chronic - Plan Acute resp failure - improved - likely multifactorial with heart failure, copd with exacerbation. Appreciate Pulmonology consult - wean oxygen as tolerated - changed to oral prednisone and anticipate weaning over the next few days while monitoring resp status Sx bradycardia - resolved, pacemaker functioning now LAKEISHA with CKD - renal function improving on oral Lasix, monitor closely - appreciate Nephrology consult chronic a fib with supratherapeutic INR - Pharmacy to dose coumadin - holding Coumadin for now, INR today 4.9 - goal is INR 2-3 UTI with Klebsiella - On Rocephin - day 04/02, d/c abx after today's dose Acute on chronic diastolic HF - s/p diuresis, restarted oral diuretics yesterday CLEMENCIA - needs f/u with Pulm as an outpatient as she does not have a CPAP at home - hers stopped functioning about a year ago transfered to tele pt consult dvt prophy - on coumadin and supratherapeutic gi prophy - not indicated code status full likely home today or tomorrow depending on how she does off O2 pt remains at high risk given age, comorbidities and current presentation
[2020-07-23] MEDS: HumaLOG 300 UNITS/3 ML VIAL SC PRN ×3 (11:41→20:51)
--- NOTE | 2020-07-23 17:50 | PRG ---
DATE OF SERVICE: 07/23/2020 SUBJECTIVE: Ms. Rico is doing much better. No chest pain or pressure. Shortness of breath has improved, although she still requires oxygen. I did add Norvasc this morning for better blood pressure control. OBJECTIVE: VITAL SIGNS: Blood pressure 131/68, pulse 69, temperature 97.9. LUNGS: Clear to auscultation. HEART: Regular rate and rhythm. ABDOMEN: Soft, nontender, nondistended. EXTREMITIES: 1+ pitting edema. PERTINENT LABORATORY DATA: Hemoglobin 10.5, hematocrit 34.7. Creatinine 2.3. IMPRESSION: 1. Atrial fibrillation. 2. Diastolic dysfunction. 3. Chronic obstructive pulmonary disease. RECOMMENDATIONS: 1. The patient's blood pressure has been much better on adding amlodipine and we will continue. 2. Continue Toprol 50 q.a.m. 3. Continue home Lasix. 4. Creatinine appears to be improved. No other further recommendations. Okay from my standpoint to discharge home when okay with primary team. Job ID: [id number]
[2020-07-23] MEDS: Atorvastatin Calcium 40 MG TAB PO SCH (20:19)
[2020-07-24 04:21] LABS: INR-International Normal Ratio 3.7; Prothrombin Time 36.5 sec (12.0-14.7)
[2020-07-24] MEDS: cloNIDine 0.1 MG TAB PO SCH ×2 (07:47→21:31)
[2020-07-24] MEDS: predniSONE 20 MG TAB PO SCH (07:47)
[2020-07-24] MEDS: Ferrous Sulfate 325 MG TAB PO SCH ×2 (07:47→21:00)
[2020-07-24] MEDS: Amlodipine 5 MG TAB PO SCH (07:48)
[2020-07-24] MEDS: Furosemide 20 MG TAB PO SCH ×2 (07:48→21:32)
--- NOTE | 2020-07-24 08:38 | PRG ---
DATE OF SERVICE: 07/24/2020 SUBJECTIVE: Ms. Rico is an 85-year-old white female, followed up for her chronic renal failure. Recently, she had a superimposed acute kidney injury that was hemodynamically-mediated dysfunction. This has improved. Last creatinine yesterday on July 23 showed a value of 2.3. She voices no new complaints today. Her shortness of breath is much improved. She uses a nocturnal BiPAP. OBJECTIVE: VITAL SIGNS: Blood pressure is 133/71, heart rate 70, respiratory rate 20, temperature 97.6, O2 saturations 97%. GENERAL: Noted to be awake and comfortable, not in distress. SKIN: Adequate turgor. HEENT: She has pinkish conjunctivae. Anicteric sclerae. No neck mass. No carotid bruits. No JVD. CHEST: No deformities. LUNGS: Decreased breath sounds. HEART: Normal sinus rhythm. No murmurs, no gallops, no rubs. ABDOMEN: Globular, soft, nontender. No masses. EXTREMITIES: No edema. No deformities. MEDICATIONS: Medications of July 24, 2020, was reviewed. LABORATORY DATA: Laboratories of July 24, 2020, glucose 112. On July 23, 2020, BUN 75, creatinine 2.3. On July 23, 2020, hemoglobin 10.5. ASSESSMENT AND PLAN: 1. Acute kidney injury/chronic renal failure, stabilizing renal function, superimposed prerenal azotemia. We will recheck another basic metabolic profile and CBC in a.m. Continue supportive care. Continue gentle diuresis. Adjust the diuretics as needed. No indication for any dialytic intervention. 2. Shortness of breath, multifactorial etiology-chronic obstructive pulmonary disease exacerbation/mild congestive heart failure, much improved. 3. Borderline anemia. We will simply observe this. Recheck CBC in a.m. Job ID: [id number]
--- NOTE | 2020-07-24 08:49 | PDOC.HOSPP ---
- Subjective Encounter Date: 07/24/20 Encounter Time: 11:00 Subjective: Patient without complaints. Doing well on RA without shortness of breath. Daughter is trying to get her home CPAP fixed. Patient states that she and family would like to go to SNF before home. - Objective Vital Signs & Weight: Vital Signs (12 hours) Temp Pulse Resp BP Pulse Ox 07/24/20 07:45 97.6 F 70 20 133/71 97 07/24/20 07:07 70 22 H 96 07/24/20 04:00 97.5 F L 69 20 130/87 97 07/24/20 02:41 70 07/24/20 02:25 25 H 07/24/20 02:24 24 H 07/24/20 00:20 127/70 07/23/20 22:10 69 25 H 98 07/23/20 22:09 69 25 H 98 Weight Admit Weight 231 lb 9.6 oz Weight 236 lb Most Recent Monitor Data Heart Rate from ECG 70 NIBP 140/63 NIBP BP-Mean 88 Respiration from ECG 26 SpO2 99 I&O: 07/23/20 07/24/20 07/25/20 06:59 06:59 06:59 Intake Total 680 720 Output Total 1175 1550 Balance -495 -830 Result Diagrams: 07/23/20 04:03 07/24/20 03:39 Additional Labs: Accuchecks 07/24/20 07/23/20 07/23/20 05:44 20:46 16:32 POC Glucose 112 H 220 H 174 H 07/23/20 11:15 POC Glucose 163 H Hospitalist ROS - Review of Systems Constitutional: denies: fever, chills Respiratory: denies: cough, shortness of breath Cardiovascular: denies: chest pain, palpitations Gastrointestinal: denies: nausea, vomiting, abdominal pain - Medication Medications: Active Medications Generic Name Dose Route Start Last Admin Trade Name Freq PRN Reason Stop Dose Admin Albuterol/Ipratropium 3 ml 07/19/20 10:30 07/24/20 07:07 Duoneb NEB 3 ml [id number] HAILEY Administration Amlodipine Besylate 5 mg 07/23/20 09:00 07/24/20 07:48 Norvasc PO 5 mg DAILY HAILEY Administration Atorvastatin Calcium 40 mg 07/17/20 21:00 07/23/20 20:19 Lipitor PO 40 mg HS HAILEY Administration Clonidine 0.1 mg 07/17/20 09:00 07/24/20 07:47 Catapres PO 0.1 mg BID HAILEY Administration Ferrous Sulfate 325 mg 07/17/20 09:00 07/24/20 07:47 Feosol PO 325 mg BID HAILEY Administration Furosemide 20 mg 07/21/20 21:00 07/24/20 07:48 Lasix PO 20 mg BID HAILEY Administration Insulin Human Lispro 0 units 07/16/20 13:37 07/23/20 17:19 Humalog SC 2 unit .MILD SLIDING SCALE PRN Administration Mild Correctional Scale Insulin Human Lispro 0 units 07/16/20 13:37 07/23/20 20:51 Humalog SC 2 unit .BEDTIME SLIDING SC PRN Administration Bedtime Correctional Scale Metoprolol Succinate 50 mg 07/17/20 09:00 07/24/20 07:48 Toprol Xl PO 50 mg DAILY HAILEY Administration Prednisone 20 mg 07/23/20 08:00 07/24/20 07:47 Prednisone PO 20 mg QAM-WM HAILEY Administration - Exam General Appearance: NAD, awake alert ENT: moist mucosa Heart: RRR, no murmur, no gallops, no rubs Respiratory: CTAB, no wheezes, no rales, no ronchi Gastrointestinal: soft, non-tender, non-distended, normal bowel sounds Psychiatric: normal affect, normal behavior, A&O x 3 Hosp A/P (1) Acute on chronic diastolic CHF (congestive heart failure) Code(s): I50.33 - ACUTE ON CHRONIC DIASTOLIC (CONGESTIVE) HEART FAILURE Status : Acute (2) Acute renal failure superimposed on stage 3 chronic kidney disease Code(s): N17.9 - ACUTE KIDNEY FAILURE, UNSPECIFIED; N18.3 - CHRONIC KIDNEY DISEASE, STAGE 3 (MODERATE) Status: Acute (3) Atrial fibrillation Code(s): I48.91 - UNSPECIFIED ATRIAL FIBRILLATION Status: Chronic Qualifiers: Atrial fibrillation type: longstanding persistent Qualified Code(s): I48.11 - Longstanding persistent atrial fibrillation (4) Symptomatic bradycardia Code(s): R00.1 - BRADYCARDIA, UNSPECIFIED Status: Resolved (5) Acute respiratory failure with hypoxia and hypercarbia Code(s): J96.01 - ACUTE RESPIRATORY FAILURE WITH HYPOXIA; J96.02 - ACUTE RESPIRATORY FAILURE WITH HYPERCAPNIA Status: Acute (6) Anemia Code(s): D64.9 - ANEMIA, UNSPECIFIED Status: Acute (7) Chronic anticoagulation Code(s): Z79.01 - [facility] (CURRENT) USE OF ANTICOAGULANTS Status: Chronic (8) HTN (hypertension) Code(s): I10 - ESSENTIAL (PRIMARY) HYPERTENSION Status: Chronic Qualifiers: Hypertension type: essential hypertension Qualified Code(s): I10 - Essential (primary) hypertension (9) CLEMENCIA (obstructive sleep apnea) Code(s): G47.33 - OBSTRUCTIVE SLEEP APNEA (ADULT) (PEDIATRIC) Status: Chronic (10) Obesity (BMI 30-39.9) Code(s): E66.9 - OBESITY, UNSPECIFIED Status: Chronic - Plan Acute resp failure - improved - likely multifactorial with heart failure, copd with exacerbation. Appreciate Pulmonology consult - off oxygen all yesterday and this morning - changed to oral prednisone and anticipate weaning over the next few days while monitoring resp status Sx bradycardia - resolved, pacemaker functioning now LAKEISHA with CKD - renal function improving on oral Lasix, monitor closely, creatinine below 2 this AM - appreciate Nephrology consult chronic a fib with supratherapeutic INR - Pharmacy to dose coumadin - holding Coumadin for now, INR today 3.7 - goal is INR 2-3 UTI with Klebsiella - Rocephin - day 04/02, d/c'd Acute on chronic diastolic HF - s/p diuresis, restarted oral diuretics CLEMENCIA - needs f/u with Pulm as an outpatient as she does not have a CPAP at home - hers stopped functioning about a year ago, her daughter is seeing if it can be fixed dvt prophy - on coumadin and supratherapeutic gi prophy - not indicated code status full Will discuss with case management. Patient stable for d/c to SNF or home with home health.
[2020-07-24 09:21] LABS: Anion Gap 17 mmol/L (10-20); BUN (Urea Nitrogen) 71 mg/dL (9.8-20.1); Calc. Creatinine Clearance 35 mL/min (70-130); Calcium 8.9 mg/dL (7.8-10.44); Carbon Dioxide 26 mmol/L (23-31); Chloride 105 mmol/L (98-107); Estimated GFR-MDRD 24; Glucose 88 mg/dL (83-110); Potassium 4.2 mmol/L (3.5-5.1); Sodium 144 mmol/L (136-145)
[2020-07-24 10:33] LABS: INR-International Normal Ratio 4.9
--- NOTE | 2020-07-24 11:54 | PRG ---
DATE OF SERVICE: SUBJECTIVE: Leila Rico is an 85-year-old female. This morning, she is awake, alert, and responsive. Denies any shortness of breath. No coughing. OBJECTIVE: VITAL SIGNS: Temperature 97, pulse 70, respirations 20, saturations on room air, blood pressure 133/71. CHEST: No wheezing. No crackles. CARDIAC: Normal S1, S2. No gallops. ABDOMEN: No masses. LABORATORY DATA: Creatinine is 1.96, BUN is 71. INR is 3.7. ASSESSMENT: Chronic renal failure, slowly improving. Prolonged PT/INR, somewhat better. Dyspnea. Chronic obstructive pulmonary disease. Sleep apnea. Morbid obesity. PLAN: I will continue present aggressive PT, nocturnal CPAP, BiPAP, eventually placement. Job ID: [id number]
--- NOTE | 2020-07-24 15:53 | EKG ---
Test Reason : Blood Pressure : / mmHG Vent. Rate : 071 BPM Atrial Rate : 071 BPM P-R Int : 334 ms QRS Dur : 138 ms QT Int : 432 ms P-R-T Axes : 037 -68 108 degrees QTc Int : 469 ms Electronic ventricular pacemaker Confirmed by MAXIME QUARLES MD ([id number]), photograph editor POPPY VALENCIA ([id number]) on 07/24/2020 3:53:13 PM Referred By: Confirmed By:MAXIME QUARLES MD
[2020-07-24] MEDS: HumaLOG 300 UNITS/3 ML VIAL SC PRN (16:49)
[2020-07-24] MEDS: Atorvastatin Calcium 40 MG TAB PO SCH (21:31)
[2020-07-25 04:40] LABS: #Eosinphils 0.1 thou/uL (0.0-0.7); #Lymphocytes 0.9 thou/uL (1.20-3.40); #Monocytes 1.1 thou/uL (0.11-0.59); #Neutrophils 9.6 thou/uL (1.40-6.50); %Basophils 0.1 % (0.0-1.0); %Eosinophils 0.8 % (0.0-10.0); %Lymphocytes 7.9 % (21.0-51.0); %Monocytes 9.6 % (0.0-10.0); %Neutrophils 81.6 % (42.0-75.0); Hemoglobin 11.4 g/dL (12.0-16.0); Mean Corpuscular HGB CONC 30.5 g/dL (32.0-36.0); Mean Corpuscular Hemoglobin 26.1 pg (27.0-31.0); Mean Corpuscular Volume 85.4 fL (78.0-98.0); Mean Platelet Volume 8.6 fL (7.4-10.4); Platelet Count 437 thou/uL (130-400); RBC Distribution Width 14.2 % (11.5-14.5); Red Blood Cell (RBC) Count 4.36 mill/uL (4.20-5.40); White Blood Cell (WBC) Count 11.8 thou/uL (4.8-10.8)
[2020-07-25 04:45] LABS: INR-International Normal Ratio 2.8; Prothrombin Time 28.9 sec (12.0-14.7)
[2020-07-25 05:00] LABS: Anion Gap 17 mmol/L (10-20); BUN (Urea Nitrogen) 66 mg/dL (9.8-20.1); Calc. Creatinine Clearance 41 mL/min (70-130); Calcium 8.7 mg/dL (7.8-10.44); Carbon Dioxide 24 mmol/L (23-31); Chloride 106 mmol/L (98-107); Estimated GFR-MDRD 29; Glucose 118 mg/dL (83-110); Potassium 3.7 mmol/L (3.5-5.1); Sodium 143 mmol/L (136-145)
[2020-07-25] MEDS ORDERED: hydrALAZINE 20 MG/ML VIAL SLOW IVP PRN (05:21)
--- NOTE | 2020-07-25 07:53 | PDOC.HOSPP ---
- Subjective Encounter Date: 07/25/20 Encounter Time: 13:00 Subjective: Patient feeling well, off O2. No complaints. - Objective Vital Signs & Weight: Vital Signs (12 hours) Temp Pulse Resp BP Pulse Ox 07/25/20 07:27 97.6 F 71 18 146/73 H 98 07/25/20 07:10 158/74 H 07/25/20 07:00 25 H 96 07/25/20 06:59 69 25 H 97 07/25/20 06:07 69 07/25/20 05:00 97.6 F 69 193/107 H 99 07/25/20 02:35 25 H 07/25/20 00:31 26 H 07/24/20 22:25 28 H 07/24/20 22:22 71 28 H 100 07/24/20 21:27 98.2 F 103 H 28 H 139/80 97 Weight Admit Weight 231 lb 9.6 oz Weight 236 lb Most Recent Monitor Data Heart Rate from ECG 70 NIBP 140/63 NIBP BP-Mean 88 Respiration from ECG 26 SpO2 99 I&O: 07/24/20 07/25/20 07/26/20 06:59 06:59 06:59 Intake Total 720 600 Output Total 1550 800 Balance -830 -200 Result Diagrams: 07/25/20 04:08 07/25/20 04:08 Additional Labs: Accuchecks 07/25/20 07/24/20 07/24/20 05:43 20:26 16:50 POC Glucose 124 H 246 H 194 H 07/24/20 11:12 POC Glucose 140 H Hospitalist ROS - Review of Systems Constitutional: denies: fever, chills Respiratory: denies: cough, shortness of breath Cardiovascular: denies: chest pain, palpitations Gastrointestinal: denies: nausea, vomiting, abdominal pain - Medication Medications: Active Medications Generic Name Dose Route Start Last Admin Trade Name Freq PRN Reason Stop Dose Admin Albuterol/Ipratropium 3 ml 07/19/20 10:30 07/25/20 06:59 Duoneb NEB 3 ml [id number] HAILEY Administration Amlodipine Besylate 5 mg 07/23/20 09:00 07/24/20 07:48 Norvasc PO 5 mg DAILY HAILEY Administration Atorvastatin Calcium 40 mg 07/17/20 21:00 07/24/20 21:31 Lipitor PO 40 mg HS HAILEY Administration Clonidine 0.1 mg 07/17/20 09:00 07/24/20 21:31 Catapres PO 0.1 mg BID HAILEY Administration Ferrous Sulfate 325 mg 07/17/20 09:00 07/24/20 21:00 Feosol PO 325 mg BID HAILEY Administration Furosemide 20 mg 07/21/20 21:00 07/24/20 21:32 Lasix PO 20 mg BID HAILEY Administration Hydralazine HCl 10 mg 07/25/20 05:21 07/25/20 06:07 Apresoline SLOW IVP 10 mg Q6H PRN Administration SBP GREATER THAN 160 Insulin Human Lispro 0 units 07/16/20 13:37 07/24/20 16:49 Humalog SC 2 unit .MILD SLIDING SCALE PRN Administration Mild Correctional Scale Insulin Human Lispro 0 units 07/16/20 13:37 07/23/20 20:51 Humalog SC 2 unit .BEDTIME SLIDING SC PRN Administration Bedtime Correctional Scale Metoprolol Succinate 50 mg 07/17/20 09:00 07/24/20 07:48 Toprol Xl PO 50 mg DAILY HAILEY Administration - Exam General Appearance: NAD, awake alert ENT: moist mucosa Heart: RRR, no murmur, no gallops, no rubs Respiratory: CTAB, no wheezes, no rales, no ronchi Gastrointestinal: soft, non-tender, non-distended, normal bowel sounds Psychiatric: normal affect, normal behavior, A&O x 3 Hosp A/P (1) Acute on chronic diastolic CHF (congestive heart failure) Code(s): I50.33 - ACUTE ON CHRONIC DIASTOLIC (CONGESTIVE) HEART FAILURE Status : Acute (2) Acute renal failure superimposed on stage 3 chronic kidney disease Code(s): N17.9 - ACUTE KIDNEY FAILURE, UNSPECIFIED; N18.3 - CHRONIC KIDNEY DISEASE, STAGE 3 (MODERATE) Status: Acute (3) Atrial fibrillation Code(s): I48.91 - UNSPECIFIED ATRIAL FIBRILLATION Status: Chronic Qualifiers: Atrial fibrillation type: longstanding persistent Qualified Code(s): I48.11 - Longstanding persistent atrial fibrillation (4) Symptomatic bradycardia Code(s): R00.1 - BRADYCARDIA, UNSPECIFIED Status: Resolved (5) Acute respiratory failure with hypoxia and hypercarbia Code(s): J96.01 - ACUTE RESPIRATORY FAILURE WITH HYPOXIA; J96.02 - ACUTE RESPIRATORY FAILURE WITH HYPERCAPNIA Status: Resolved (6) Anemia Code(s): D64.9 - ANEMIA, UNSPECIFIED Status: Acute (7) Chronic anticoagulation Code(s): Z79.01 - NURSING HOME (CURRENT) USE OF ANTICOAGULANTS Status: Chronic (8) HTN (hypertension) Code(s): I10 - ESSENTIAL (PRIMARY) HYPERTENSION Status: Chronic Qualifiers: Hypertension type: essential hypertension Qualified Code(s): I10 - Essential (primary) hypertension (9) CLEMENCIA (obstructive sleep apnea) Code(s): G47.33 - OBSTRUCTIVE SLEEP APNEA (ADULT) (PEDIATRIC) Status: Chronic (10) Obesity (BMI 30-39.9) Code(s): E66.9 - OBESITY, UNSPECIFIED Status: Chronic - Plan Acute resp failure - improved - likely multifactorial with heart failure, copd with exacerbation. Appreciate Pulmonology consult - off oxygen, continuing Bipap at night - changed to oral prednisone and anticipate weaning over the next few days Sx bradycardia - resolved, pacemaker functioning now LAKEISHA with CKD - renal function improving on oral Lasix, monitor closely, creatinine below 2 this AM - appreciate Nephrology consult chronic a fib with supratherapeutic INR - Pharmacy to dose coumadin - holding Coumadin, INR now therapeutic at 2.8, can resume Coumadin tonight - goal is INR 2-3 UTI with Klebsiella - Rocephin - day 04/02, d/c'd Acute on chronic diastolic HF - s/p diuresis, restarted oral diuretics CLEMENCIA - needs f/u with Pulm as an outpatient as she does not have a CPAP at home - hers stopped functioning about a year ago, her daughter is seeing if it can be fixed dvt prophy - on coumadin and supratherapeutic gi prophy - not indicated code status full discharging to [facility] for SNF
[2020-07-25] MEDS ORDERED: predniSONE 5 MG TAB PO SCH (08:00)
[2020-07-25] MEDS: Amlodipine 5 MG TAB PO SCH (08:17)
[2020-07-25] MEDS: Furosemide 20 MG TAB PO SCH (08:17)
[2020-07-25] MEDS: cloNIDine 0.1 MG TAB PO SCH (08:17)
[2020-07-25] MEDS: Ferrous Sulfate 325 MG TAB PO SCH (08:18)
--- NOTE | 2020-07-25 09:04 | PRG ---
DATE OF SERVICE: 07/25/2020 SUBJECTIVE: Ms. Rico is an 85-year-old white female, followed up by the Renal Service for her acute kidney injury on top of her chronic renal failure. She had a superimposed hemodynamically-mediated dysfunction. This has slowly improved over time. She also developed acute shortness of breath which is felt related to some mild CHF and/or COPD exacerbation. She continues to use a nocturnal BiPAP. No new complaints today. She tells me she is feeling better. The patient denies any chest pain or shortness of breath. OBJECTIVE: VITAL SIGNS: Blood pressure 146/73, heart rate 71, respiratory rate 18, temperature 97.6, O2 saturation 98%. GENERAL: The patient is noted to be awake, alert, comfortable, not in distress. SKIN: Adequate turgor. HEENT: She has pinkish conjunctivae. Anicteric sclerae. NECK: No neck mass. No carotid bruits. No JVD. CHEST: No deformities. LUNGS: Decreased breath sounds. HEART: Normal sinus rhythm. No murmurs, gallops, or rubs. ABDOMEN: Globular, soft, nontender, no masses. EXTREMITIES: No edema, no deformities. MEDICATIONS: July 25, 2020, reviewed. LABORATORY DATA: July 25, 2020, white count 11.8, hemoglobin 11.4. Sodium 143, potassium 3.7, chloride 106, carbon dioxide 24, BUN 66, creatinine 1.69, calcium 8.7. ASSESSMENT AND PLAN: 1. Acute kidney injury on top of her chronic renal failure, much improved renal function. Continue supportive care. Tolerating current diuretic regimen. Creatinine is now noted at 1.69. There is no indication for any dialytic intervention. 2. Shortness of breath-multifactorial etiology-mild congestive heart failure with chronic obstructive pulmonary disease exacerbation, on low-dose diuretics. Continue current management. 3. Awaiting intermediate placement. Job ID: [id number]
--- NOTE | 2020-07-25 10:24 | PRG ---
DATE OF SERVICE: 07/25/2020 SUBJECTIVE: This morning, she is doing better. No cough. No shortness of breath. OBJECTIVE: VITAL SIGNS: Temp 97, pulse 70, respirations 18, saturations 90% on room air, and blood pressure 146/73. CHEST: No wheezing. No crackles. CARDIAC: Normal S1 and S2. No gallops. ABDOMEN: No masses. LABORATORY DATA: Creatinine is 1.6, BUN 66. INR is down to 2.8. ASSESSMENT AND PLAN: Morbid obesity, respiratory failure, and hypoventilation syndrome. Pulmonary mcnair, she is stable enough to transfer to retirement. Job ID: [id number]
[2020-07-25] MEDS: HumaLOG 300 UNITS/3 ML VIAL SC PRN (11:32)
[2020-07-25 15:04] VITALS: BMI 36.9
[2020-07-25 15:12] VITALS: BP 121/63; TEMP 98.1
[2020-07-25] MEDS ORDERED: Warfarin Sodium 2 MG TAB PO SCH (17:00)
--- NOTE | 2020-07-26 09:49 | DIS ---
DATE OF ADMISSION: 07/16/2020 DATE OF DISCHARGE: 07/25/2020 [facility] REASON FOR ADMISSION: Shortness of breath with bradycardia and hypotension for 3 days. DIAGNOSES AT DISCHARGE: 1. Bradycardia, resolved with pacemaker setting adjustment. 2. Acute on chronic diastolic congestive heart failure, improved. 3. Acute renal failure imposed on stage 3 chronic kidney disease. 4. Atrial fibrillation, chronic. 5. Acute respiratory failure with hypoxia and hypercapnia, resolved. 6. Anemia. 7. Chronic anticoagulation. 8. Hypertension. 9. Obstructive sleep apnea. 10. Obesity. 11. 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 12. [id number] sized pericardial effusion without any tamponade. PROCEDURES: 1. X-ray of the right foot showing no acute osseous abnormalities. 2. Echocardiogram showing an ejection fraction of 55% to 60% and grade 2 diastolic dysfunction, [id number] concentric pericardial effusion measuring 0.9 cm anteriorly and 0.8 cm posteriorly. CONSULTATIONS: 1. Nephrology, Dr. Mccloud. 2. Cardiology, Dr. Razo. 3. Pulmonology, Dr. Hamilton. SUMMARY OF HOSPITAL COURSE: This is a 85-year-old, obese, white female with a history of atrial fibrillation with pacemaker; diabetes mellitus, type 2; diastolic heart failure; hypertension; and obstructive sleep apnea, who has not been using her CPAP at night for about a year due to the machine being broken. She presented complaining of shortness of breath and also having low heart rate and low blood pressures at home. She reported that she had been taking her medicines regularly and limiting her liquid intake. When she presented to the hospital, she had an elevated creatinine and elevated potassium and a very supratherapeutic INR and her heart rate was in the 40s to 50s. Her pacemaker was interrogated as it was reading the T-waves as heart beats and adjustments were made to the settings and she started beating at 70 beats per minute as she was supposed to be. She had improvement in her symptoms. She did have to be diuresed during her hospitalization. After being resuscitated with albumin for her renal failure, she eventually was able to be put on her home dose of Lasix and her renal function improved. She also had her Coumadin held for a while until it came back to therapeutic and then it was resumed. At the time of discharge, she was doing much better. She was given CPAP nightly while she was in the hospital. She was able to be weaned off of all oxygen, though occasionally would be put back on 1 L on and off until the last 2 to 3 days when she stayed completely on room air during the days. She had initially talked about wanting to go home with home health with family helping her; however, she decided that she would prefer to go to SNF to try and regain some strength while her daughter is working on getting her CPAP repaired. DISCHARGE MANAGEMENT: Discharged to [facility] for residential. ACTIVITY: As tolerated. DIET: Diabetic, healthy heart, fluid-restricted diet at 1500 mL per day. She was also evaluated by Speech Therapy and she is to be on an NDD2 ground textures with extra sauce and gravy, thin liquids with controlled sips by straw. THERAPY: At residential facility will be occupational, physical, and speech therapy. EQUIPMENT AND SUPPLIES: She needs to try and get her CPAP repaired and start using that nightly and oxygen as needed. DISCHARGE MEDICATIONS: 1. Atorvastatin 40 mg at night. 2. Clonidine 0.1 mg twice a day. 3. Ferrous sulfate 325 mg twice a day. 4. Furosemide 20 mg twice a day. 5. DuoNeb as needed. 6. Metoprolol succinate 50 mg daily. 7. Prednisone 10 mg daily for another day and then decrease to 5 mg daily for three more days and then off. 8. Ventolin inhaler 2 puffs as needed. 9. Warfarin 2 mg daily. FOLLOWUP: The patient is to follow up with [facility], but will be taken up by Dr. Watson while at the [facility]. TIME SPENT: Arranging the details of this discharge took 32 minutes. Job ID: [id number]
== END 2020-07-25 16:02 | DRG 314 ==
LOC: ERS 06:08 → ERHOLD 11:06 → 2NO 14:29 → IMCU/EMU 07-19 03:03 → 2NO 07-21 11:30
PROVIDERS: ADMIT Internal Medicine; ATTEND Internal Medicine
PROC: 5A09457 Assistance with Respiratory Ventilation, 24-96 Consecutive Hours, Continuous Positive Airway Pressure (ICD-10-PCS; principal; 2020-07-19)
DX: T82.119A Breakdown (mechanical) of unspecified cardiac electronic device, initial encounter (principal); I50.33 Acute on chronic diastolic (congestive) heart failure; J96.01 Acute respiratory failure with hypoxia; J96.02 Acute respiratory failure with hypercapnia; N17.9 Acute kidney failure, unspecified; I31.3 Pericardial effusion (noninflammatory); I48.20 Chronic atrial fibrillation, unspecified; E87.2 Acidosis; J44.1 Chronic obstructive pulmonary disease with (acute) exacerbation; N39.0 Urinary tract infection, site not specified; I48.11 Longstanding persistent atrial fibrillation; Z20.828 Contact with and (suspected) exposure to other viral communicable diseases; R00.1 Bradycardia, unspecified; E11.22 Type 2 diabetes mellitus with diabetic chronic kidney disease; N18.3 Chronic kidney disease, stage 3 (moderate); R79.1 Abnormal coagulation profile; E11.621 Type 2 diabetes mellitus with foot ulcer; D64.9 Anemia, unspecified; M10.9 Gout, unspecified; G47.33 Obstructive sleep apnea (adult) (pediatric); I12.9 Hypertensive chronic kidney disease with stage 1 through stage 4 chronic kidney disease, or unspecified chronic kidney disease; L97.519 Non-pressure chronic ulcer of other part of right foot with unspecified severity; S91.101A Unspecified open wound of right great toe without damage to nail, initial encounter; E66.01 Morbid (severe) obesity due to excess calories; I95.9 Hypotension, unspecified; E87.5 Hyperkalemia; I27.20 Pulmonary hypertension, unspecified; B96.1 Klebsiella pneumoniae [K. pneumoniae] as the cause of diseases classified elsewhere; Y83.1 Surgical operation with implant of artificial internal device as the cause of abnormal reaction of the patient, or of later complication, without mention of misadventure at the time of the procedure; Z79.01 Long term (current) use of anticoagulants; Z95.0 Presence of cardiac pacemaker; Z90.49 Acquired absence of other specified parts of digestive tract; Z90.710 Acquired absence of both cervix and uterus; Z68.37 Body mass index [BMI] 37.0-37.9, adult; Z90.89 Acquired absence of other organs; Z85.048 Personal history of other malignant neoplasm of rectum, rectosigmoid junction, and anus
CPT/HCPCS: 36415; 36416; 36600; 71045; 80048; 80053; 81001; 82553; 82805; 83605; 83880; 84484; 85025; 85610; 85730; 87077; 87086; 87186; 87635; 93005; 93306; 94640; 94660; J0360; J0696; J1815; J1940; J2920; J3430; J3490; J7050; J7512; J7620; P9047; U0003

== ENCOUNTER 2020-08-04 13:55 | Inpatient (IN) | payer MEDICARE, OTHER ==
[2020-08-04 15:25] LABS: #Eosinphils 0.1 thou/uL (0.0-0.7); #Lymphocytes 0.8 thou/uL (1.20-3.40); %Basophils 0.1 % (0.0-1.0); %Eosinophils 0.4 % (0.0-10.0); %Lymphocytes 5.1 % (21.0-51.0); %Neutrophils 88.5 % (42.0-75.0); Hemoglobin 12.8 g/dL (12.0-16.0); Mean Corpuscular HGB CONC 32.4 g/dL (32.0-36.0); Mean Corpuscular Hemoglobin 27.2 pg (27.0-31.0); Mean Corpuscular Volume 84.1 fL (78.0-98.0); Mean Platelet Volume 10.1 fL (7.4-10.4); Platelet Count 416 thou/uL (130-400); RBC Distribution Width 15.1 % (11.5-14.5); Red Blood Cell (RBC) Count 4.69 mill/uL (4.20-5.40); White Blood Cell (WBC) Count 15.9 thou/uL (4.8-10.8)
[2020-08-04 15:32] LABS: INR-International Normal Ratio 3.8; PTT 48.1 sec (22.9-36.1); Prothrombin Time 37.4 sec (12.0-14.7)
[2020-08-04 15:45] LABS: ALT (SGPT) 7 U/L (8-55); AST (SGOT) 14 U/L (5-34); Albumin 3.2 g/dL (3.4-4.8); Alkaline Phosphatase 99 U/L (40-110); Anion Gap 20 mmol/L (10-20); BUN (Urea Nitrogen) 55 mg/dL (9.8-20.1); Bilirubin, Total 0.7 mg/dL (0.2-1.2); Calc. Creatinine Clearance 0 mL/min (70-130); Calcium 8.3 mg/dL (7.8-10.44); Carbon Dioxide 26 mmol/L (23-31); Chloride 98 mmol/L (98-107); Estimated GFR-MDRD 26; Globulin 3.1 g/dL (2.4-3.5); Glucose 117 mg/dL (83-110); Lipase 28 U/L (8-78); Protein, Total 6.3 g/dL (6.0-8.3); Sodium 141 mmol/L (136-145)
[2020-08-04 15:50] LABS: Potassium 2.8 mmol/L (3.5-5.1)
[2020-08-04 16:00] LABS: Bacteria/HPF None Seen HPF (None Seen); Bilirubin Negative (Negative); Blood, Urine Negative (Negative); Clarity Clear (Clear); Glucose, Urine (Dipstick) Normal (Negative); Ketone, Urine Negative (Negative); Leukocyte 75 Leu/uL (Negative); Mucous/LPF 1+ LPF (<2+); Nitrite Negative (Negative); Protein, Urine (Dipstick) 10 mg/dL (Neg-Trace); RBC/HPF 0-3 HPF (0-3); Specific Gravity, Urine 1.017 (1.002-1.036); Squamous Epithelial 0-3 HPF (0-3); Urobilinogen Normal mg/dL (Less than 2)
[2020-08-04 16:14] LABS: CKMB 3.5 ng/mL (0-6.6)
--- NOTE | 2020-08-04 16:30 | CT ---
CT ABDOMEN AND PELVIS PERFORMED WITHOUT CONTRAST ENHANCEMENT: History: Nausea, vomiting, abdominal pain for the past several days. Diffuse abdominal swelling. The patient has a history of rectal cancer. No IV contrast was administered due to low GFR. Comparison: 08-10-18 FINDINGS: There is a moderate right and small left pleural effusion and bibasilar lung changes, probably atelec tasis, much more prominent in the right base. The liver and spleen appear unremarkable. Pancreas is atrophic. There is a cystic appearing lesion is seen in the pancreatic body, new as compared to the previous exam. It measures [address] Houns field unit numbers slightly higher than typical for a cyst. The gallbladder has been removed. Right and left adrenal glands are normal in appearance. Right and left kidneys are normal in size. Sm all hypodensities involving the kidneys are most likely small cysts. No significant periaortic or mes enteric adenopathy. There is marked gaseous distension of the colon with some more liquid appearing s tool present. There is transition to a somewhat more normal caliber sigmoid colon but I do not see si gns that would suggest any type of volvulus. There is an anastomotic suture line in the rectum region . There is some mild fluid filled and gaseous distention of the small bowel loops. This may be on the basis of a generalized A dynamic ileus. No free air or pneumatosis. No pelvic lymphadenopathy or mas s. There is air present within the vagina. This is directly adjacent to the anastomotic suture line a nd I cannot exclude that this may represent a small fistulous connection that has developed. There is some perirectal fat stranding with fat stranding seen in the pre-sacral region. Review of osseous structures show arthritic changes of the spine. No lytic or blastic bony changes. IMPRESSION: 1. Marked colonic distention. The diameter of the cecum region is approximately 8 cm. I see no pneuma tosis. Associated with this is gaseous and fluid filled distention of some of the small bowel loops. Although there is a transition to more normal caliber sigmoid, I do not see an obstructing type lesio n on this exam and this may represent generalized A dynamic ileus in this patient. 2. Anastomotic suture line at the Rectosigmoid colon. There is some air present which appears to be i n the region of the vaginal. This is directly adjacent to the anastomotic suture line and I suspect t hat it is related to a fistulous connection. 3. Bilateral pleural effusions, right larger than left, with bibasilar atelectatic lung change. 4. 3 Cm. cytic lesion of pancreatic body, new, followup recommended. POS: OFF
[2020-08-04] MEDS ORDERED: Piperacillin/Tazobactam 3.375 GM VIAL ONE (17:01)
[2020-08-04 18:10] LABS: Troponin I 0.155 ng/mL (< 0.028)
[2020-08-04] MEDS ORDERED: Acetaminophen 650 MG Suppository PR PRN (18:29)
[2020-08-04] MEDS ORDERED: Sodium Chloride 0.9% 1,000 ML IV SCH (18:30)
[2020-08-04] MEDS: NS 0.9% w/ 20 MEQ KCL 1,000 ML IV SCH ×2 (20:06→20:27)
--- NOTE | 2020-08-04 20:13 | HP ---
REASON FOR ADMISSION: Possible large bowel obstruction with marked colonic distention, colovaginal fistula, intractable nausea, and vomiting. HISTORY OF PRESENTING ILLNESS: The patient was sent over from [facility] for severe nausea and vomiting. The patient states she has had these symptoms from last 3 weeks. She was hospitalized here for CHF exacerbation a month back and was discharged to [facility] for further recuperation. The patient states from last 3 weeks, she is very nauseous and has not been able to eat or drink much. Her last bowel movement was 3 days back. She states she is still passing some flatus. Has some vague abdominal discomfort all over. The discomfort is always there. It is around 3 to 4/10 in intensity. No chest pain or palpitation. No fever. PAST MEDICAL AND SURGICAL HISTORY: History of CHF with diastolic dysfunction; hypertension; dyslipidemia; obesity; diabetes mellitus type 2; history of AFib, on Coumadin; gout; appendectomy; cholecystectomy; hysterectomy; history of brain tumor removed. CURRENT MEDICATIONS: The patient was discharged on: 1. Lipitor 40 mg p.o. at bedtime. 2. Clonidine 0.1 mg twice daily. 3. Ferrous sulfate 325 mg twice daily. 4. Lasix 20 mg twice daily. 5. Toprol-XL 50 mg daily. 6. DuoNeb q.4 hourly. 7. Prednisone 10 mg p.o. daily. 8. Coumadin 2 mg p.o. daily. ALLERGIES: NO KNOWN DRUG ALLERGIES. PERSONAL HISTORY: The patient is currently a resident at [facility]. Does not abuse alcohol or drugs. No history of smoking. FAMILY HISTORY: Mother at the age of 42. She had cancer all over. She does not know the primary location. Father of pneumonia and its complications in his 50s. The patient had 2 daughters who of cancer as well. CODE STATUS: The patient wants full resuscitation done and not more than 15 minutes of CPR. Power of corporate attorney is her daughter Ms. Marisol Chapa. REVIEW OF SYSTEMS: CONSTITUTIONAL: Negative for weight loss or gain, ability to conduct usual activities. SKIN: Negative for rash, itching. EYES: Negative for double vision, pain. ENT/MOUTH: Negative for nose bleeding, neck stiffness, pain, tenderness. CARDIOVASCULAR: Negative for palpitations, dyspnea on exertion, orthopnea. RESPIRATORY: Negative for shortness of breath, wheezing, cough, hemoptysis, fever or night sweats. GASTROINTESTINAL: Negative for poor appetite, abdominal pain, heartburn, nausea, vomiting, constipation, or diarrhea. GENITOURINARY: Negative for urgency, frequency, dysuria, nocturia. MUSCULOSKELETAL: Negative for pain, swelling. NEUROLOGIC/PSYCHIATRIC: Negative for anxiety, depression. ALLERGY/IMMUNOLOGIC: Negative for skin rash, bleeding tendency. PHYSICAL EXAMINATION: GENERAL: The patient is an 85-year-old female who is currently in mild distress from abdominal discomfort. VITAL SIGNS: Blood pressure 146/60, pulse 80 per minute, respiratory rate 18 per minute, saturating 97% on room air, temperature 98.7 degrees Fahrenheit. NECK: Supple. No elevated JVD. HEENT: Eyes; extraocular muscles intact. Pupils reacting to light. Oral cavity, mucous membranes are dry. No exudates or congestion. CARDIOVASCULAR SYSTEM: S1 and S2 heard. Regular rhythm. RESPIRATORY SYSTEM: Air entry 1+ bilateral. Scattered rhonchi plus no rales or wheezes. ABDOMEN: Distended. Has tenderness on deep palpation. No rebound or guarding. EXTREMITIES: 1+ peripheral edema in both lower extremities. Peripheral pulses are 1+ bilateral. No ischemic ulcers or gangrene. CENTRAL NERVOUS SYSTEM: No gross focal motor deficits noted. The patient is oriented well and has no focal deficits noted. PSYCHIATRIC SYSTEM: No obvious hallucinations or delusions. LABORATORY DATA: White count of 15, H and H of 12 and 39, platelet count is 416, MCV is 84 with 88% neutrophils. INR is 3.8, PTT 48. Potassium is 2.8, serum bicarb 26, BUN 55, creatinine 1.8, serum glucose 117. Liver enzymes within normal limits. BNP is 110. Albumin is 3.2. Abdominal and pelvic CAT scan without contrast done shows marked colonic distention with cecum measuring nearly 8 cm. There is also associated gas and fluid-filled distention of some of the small bowel loops. There is a transition to more normal caliber sigmoid with no obvious obstructive lesions seen. The patient has anastomotic suture line at the rectosigmoid colon. There is air present in this area in the vagina with suspected fistulous connection. Bilateral pleural effusions are seen. CLINICAL IMPRESSION AND PLAN: The patient will be admitted to telemetry for large bowel obstruction. Dr. Page, general surgeon has been consulted from the ER. We will keep her n.p.o. for now. She will be on normal saline at 50 mL per hour. We will obtain PT/OT evaluations as well. The patient has multiple medical issues. Unclear if she would tolerate a big surgery. Previous albumin was 3.2 as well. The patient is willing for surgery if it is going to give her relief. We will await formal consultation by General Surgery and review the plans with him. Her last echo done on 07/18 showed EF of 55% to 60% with diastolic dysfunction. The patient has barely stood up and got into a wheelchair so far in the last 3 weeks at the longterm. She has poor functional status as well. Job ID: [id number]
[2020-08-04] MEDS ORDERED: PROVENTIL INHALER 6.7 G (200 INHALATIONS) INH PRN (20:41)
[2020-08-04] MEDS ORDERED: HumaLOG 300 UNITS/3 ML VIAL SC PRN ×2 (20:43)
[2020-08-04] MEDS ORDERED: Dextrose 50% Abboject 50 ML SYRINGE SLOW IVP PRN (20:43)
[2020-08-04] MEDS ORDERED: Dextrose 5% in Water 1,000 ML IV PRN (20:43)
[2020-08-04] MEDS ORDERED: Furosemide 20 MG TAB PO SCH (21:00)
[2020-08-04 21:08] VITALS: BMI 35.5
[2020-08-04] MEDS: Potassium Chloride 10 MEQ in Premix Bag 1 BAG IVPB SCH ×2 (21:26→22:34)
--- NOTE | 2020-08-04 21:26 | PDOC.CONS ---
- Consultation Encounter Date: 08/04/20 Encounter Time: 21:16 CHIEF COMPLAINT: Abdominal distention HISTORY OF PRESENT ILLNESS: 85-year-old female presents with a two-week history of progressive abdominal pain and abdominal distention. She was recently admitted last month for a CHF exacerbation, and was [place] to [place] [facility]. She reports relatively normal bowel movements up until recently. She did have a loose bowel movement 3 days ago. She continues to pass flatus including the day of admission. The pain is generalized and crampy. She endorses nausea and recent emesis. REVIEW OF SYSTEMS: General: Denies recent weight changes, fever, or chills. Eyes: Denies visual changes, pain, or irritation ENT: Denies changes in hearing, nasal discharge, or sore throat Cardiovascular: Denies chest pain, palpitations, shortness of breath, or edema. Respiratory: Denies cough, shortness of breath, or wheezing Gastrointestinal: Positive per HPI Genitourinary: Denies frequent urination or dysuria Musculoskeletal: Denies pain or restricted motion Integumentary: Denies abnormal rashes, sores, or skin lesions Neurological: Denies numbness, tingling, or weakness. Psychiatric: Denies new onset anxiety or depression Endocrine: Denies temperature intolerances, polyuria, or excessive thirst Hematologic: Denies abnormal bruising or bleeding PAST MEDICAL HISTORY: Congestive heart failure with diastolic dysfunction Dyslipidemia Hypertension Diabetes Atrial fibrillation on Coumadin Obesity Gout Colon cancer PAST SURGICAL HISTORY: Appendectomy Cholecystectomy Hysterectomy Excision of brain tumor Sigmoid colectomy (open) FAMILY HISTORY: Early mortality throughout her family. Mother at 42 due to cancer. Father in his 50s due to pneumonia. The patient has 2 children who have also passed from cancer. SOCIAL HISTORY non- smoker, denies illicit drug use, endorses occasional alcohol consumption. ALLERGIES: No known drug allergies PHYSICAL EXAM: Vital Signs: HR 80 BP 146/60 T 98.7 RR 18 SpO2 97% on room air General: Alert and oriented, mild distress due to nausea ENT: Sclera anicteric, pupils equal and reactive, mucous membranes moist Neck: No jugular venous distention, trachea midline Cardiovascular: Regular rate Pulmonary: Mildly coarse bilaterally Abdominal: Soft, distended, mild diffuse tenderness palpation with no evidence of peritonitis Genitourinary: Normal anatomy Rectal: Deferred Integument: No abnormal rashes or lesions. Scattered ecchymosis Musculoskeletal: No gross deformities, mild lower extremity edema, normal range of motion LABORATORY: Laboratory analysis reviewed and demonstrates a leukocytosis of 15.9. Thrombocytosis of 416, stable hemoglobin at 12.8. Elevated INR at 3.8. Hypokalemia at 2.8, creatinine 1.86 BUN 55, BNP 110, and troponin x2 greater than 0.15 IMAGING: Computed tomography of the abdomen and pelvis reviewed as well as radiologist interpretation. Demonstrates a diffusely dilated colon up to 8 cm. No obvious transition point or point of obstruction. Large bowel obstruction versus adynamic ileus. Questionable gas to the vagina, possibly representing colovesical fistula. 3 cm pancreas cyst. ASSESSMENT: 85-year-old comorbid female with recent admission for congestive heart failure exacerbation presents with large bowel obstruction versus ileus/obstruction. PLAN: Recommend conservative management with bowel regimen. Nasogastric tube decompression as needed for nausea. We will continue to monitor closely.
[2020-08-04] MEDS: Atorvastatin Calcium 40 MG TAB PO SCH (21:27)
[2020-08-04] MEDS: Acetaminophen 325 MG TAB PO PRN (21:27)
[2020-08-04] MEDS: cloNIDine 0.1 MG TAB PO SCH (21:27)
[2020-08-05 00:22] LABS: Anion Gap 20 mmol/L (10-20); Carbon Dioxide 24 mmol/L (23-31); Chloride 101 mmol/L (98-107); Magnesium 1.7 mg/dL (1.6-2.6); Potassium 3.6 mmol/L (3.5-5.1); Sodium 141 mmol/L (136-145)
[2020-08-05 02:36] LABS: #Eosinphils 0.1 thou/uL (0.0-0.7); #Lymphocytes 0.9 thou/uL (1.20-3.40); #Monocytes 1.1 thou/uL (0.11-0.59); #Neutrophils 12.1 thou/uL (1.40-6.50); %Basophils 0.2 % (0.0-1.0); %Eosinophils 0.4 % (0.0-10.0); %Lymphocytes 6.2 % (21.0-51.0); %Monocytes 7.6 % (0.0-10.0); %Neutrophils 85.7 % (42.0-75.0); Hemoglobin 12.6 g/dL (12.0-16.0); Mean Corpuscular HGB CONC 31.2 g/dL (32.0-36.0); Mean Corpuscular Hemoglobin 26.6 pg (27.0-31.0); Mean Corpuscular Volume 85.2 fL (78.0-98.0); Mean Platelet Volume 10.2 fL (7.4-10.4); Platelet Count 388 thou/uL (130-400); RBC Distribution Width 15.3 % (11.5-14.5); Red Blood Cell (RBC) Count 4.73 mill/uL (4.20-5.40); White Blood Cell (WBC) Count 14.2 thou/uL (4.8-10.8)
[2020-08-05 02:43] LABS: PTT 48.5 sec (22.9-36.1); Prothrombin Time 38.9 sec (12.0-14.7)
[2020-08-05 03:19] LABS: Anion Gap 20 mmol/L (10-20); BUN (Urea Nitrogen) 58 mg/dL (9.8-20.1); Calc. Creatinine Clearance 35 mL/min (70-130); Calcium 8.4 mg/dL (7.8-10.44); Carbon Dioxide 23 mmol/L (23-31); Chloride 101 mmol/L (98-107); Estimated GFR-MDRD 25; Glucose 126 mg/dL (83-110); Sodium 141 mmol/L (136-145)
[2020-08-05 03:25] LABS: Troponin I 0.155 ng/mL (< 0.028)
[2020-08-05] MEDS ORDERED: Furosemide 20 MG TAB PO SCH (06:00)
[2020-08-05] MEDS: cloNIDine 0.1 MG TAB PO SCH ×2 (09:18→21:04)
[2020-08-05] MEDS: Enoxaparin Sodium 30 MG/0.3 ML SYRINGE SC SCH (09:21)
[2020-08-05] MEDS: predniSONE 5 MG TAB PO SCH (09:28)
[2020-08-05] MEDS: Potassium Chloride 20 MEQ in Lactated Ringer's 1,000 ML IV SCH ×2 (09:28→21:03)
[2020-08-05] MEDS ORDERED: Fleet Enema 133 ML BOT PR SCH (10:00)
[2020-08-05] MEDS ORDERED: Bisacodyl 10 MG SUPP PR PRN (10:00)
[2020-08-05] MEDS: Ciprofloxacin Lactate/D5W 200 MG in Premix Bag 1 BAG IVPB SCH ×2 (11:18→20:42)
[2020-08-05 11:40] LABS: SARS-CoV-2 MS2 Positive; SARS-CoV-2 N Gene Negative; SARS-CoV-2 S Gene Negative; SARS-CoV-2 by NAA Not Detected (NotDetected); SARS-CoV-2 orf1ab Negative
--- NOTE | 2020-08-05 11:53 | PDOC.HOSPP ---
- Subjective Encounter Date: 08/05/20 Encounter Time: 08:45 Subjective: no sob or nausea or vomiting has not passed stool or flatus today - Objective Vital Signs & Weight: Vital Signs (12 hours) Temp Pulse Resp BP Pulse Ox 08/05/20 10:16 69 18 100 08/05/20 09:12 98.1 F 70 22 H 122/72 99 08/05/20 07:04 66 14 100 08/05/20 03:42 97.7 F 71 16 133/69 98 08/05/20 01:16 71 16 100 08/05/20 00:00 98.0 F 69 22 H 133/70 97 Weight Weight 227 lb Result Diagrams: 08/05/20 02:12 08/05/20 02:12 Additional Labs: Accuchecks 08/05/20 08/05/20 08/04/20 11:00 05:41 21:44 POC Glucose 133 H 128 H 129 H Hospitalist ROS - Medication Medications: Active Medications Generic Name Dose Route Start Last Admin Trade Name Freq PRN Reason Stop Dose Admin Acetaminophen 650 mg 08/04/20 18:29 08/04/20 21:27 Tylenol PO 650 mg Q4H PRN Administration Headache/Fever/Mild Pain (1-3) Albuterol/Ipratropium 3 ml 08/04/20 18:30 08/05/20 10:16 Duoneb NEB 3 ml [id number] HAILEY Administration Atorvastatin Calcium 40 mg 08/04/20 21:00 08/04/20 21:27 Lipitor PO 40 mg HS HAILEY Administration Clonidine 0.1 mg 08/04/20 21:00 08/05/20 09:18 Catapres PO 0.1 mg BID HAILEY Administration Enoxaparin Sodium 30 mg 08/05/20 09:00 08/05/20 09:21 Lovenox SC 30 mg 0900 HAILEY Administration Potassium Chloride 20 meq/ 1,010 mls @ 75 mls/hr 08/05/20 07:30 08/05/20 09: 28 Lactated Ringer's IV 1,010 mls .[id number] HAILEY Administration Ciprofloxacin/Dextrose 200 mg/ 100 mls @ 100 mls/hr 08/05/20 09:00 08/05/20 11:18 Device IVPB 100 mls Q12HR HAILEY Administration Metoprolol Succinate 50 mg 08/05/20 09:00 08/05/20 09:21 Toprol Xl PO 50 mg DAILY HAILEY Administration Prednisone 10 mg 08/05/20 08:00 08/05/20 09:28 Prednisone PO 10 mg QAM-WM HAILEY Administration Sodium Biphosphate/Sodium Phosphate 133 ml 08/05/20 10:00 08/05/20 11:20 Fleet Enema NH 08/05/20 14:00 133 ml NOW HAILEY Administration Sodium Chloride 10 ml 08/04/20 21:00 08/05/20 09:30 Flush - Normal Saline IVF 10 ml Q12HR HAILEY Administration - Exam General Appearance: awake alert Eye: PERRL, anicteric sclera ENT: no oropharyngeal lesions, dry oral mucosa Neck: supple, no JVD Heart: RRR, no murmur Respiratory: no wheezes, no rales Gastrointestinal: soft, distended Gastrointestinal - other findings: increased BS+ Extremities: no cyanosis, 1+ LE edema Neurological: cranial nerve grossly intact, no focal deficits Psychiatric: A&O x 3 Hosp A/P (1) Large bowel obstruction Code(s): K56.609 - UNSP INTESTNL OBST, UNSP TO PARTIAL VERSUS COMPLETE OBST Status: Acute (2) LAKEISHA (acute kidney injury) Code(s): N17.9 - ACUTE KIDNEY FAILURE, UNSPECIFIED Status: Acute (3) Anemia Code(s): D64.9 - ANEMIA, UNSPECIFIED Status: Chronic Qualifiers: Anemia type: unspecified type Qualified Code(s): D64.9 - Anemia, unspecified (4) Supratherapeutic INR Code(s): R79.1 - ABNORMAL COAGULATION PROFILE Status: Acute (5) H/O cardiac pacemaker Code(s): Z95.0 - PRESENCE OF CARDIAC PACEMAKER Status: Chronic (6) HTN (hypertension) Code(s): I10 - ESSENTIAL (PRIMARY) HYPERTENSION Status: Chronic Qualifiers: (7) CLEMENCIA (obstructive sleep apnea) Code(s): G47.33 - OBSTRUCTIVE SLEEP APNEA (ADULT) (PEDIATRIC) Status: Chronic (8) Obesity (BMI 30-39.9) Code(s): E66.9 - OBESITY, UNSPECIFIED Status: Chronic (9) Paroxysmal atrial fibrillation Code(s): I48.0 - PAROXYSMAL ATRIAL FIBRILLATION Status: Chronic (10) Physical deconditioning Code(s): R53.81 - OTHER MALAISE Status: Chronic (11) Type 2 diabetes mellitus Status: Chronic Qualifiers: Diabetes mellitus mcc insulin use: without 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 Diabetes mellitus complication status: with kidney complications Diabetes mellitus complication detail: with chronic kidney disease Chronic kidney disease stage : stage 3 (moderate) Qualified Code(s): E11.22 - Type 2 diabetes mellitus with diabetic chronic kidney disease; N18.3 - Chronic kidney disease, stage 3 ( moderate) - Plan is npo likely will need diverting colostomy if flex sigmoidoscopy doesn't relieve her, d/w Dr.Sultz lewis one dose due to persitent and increasing inr for safety with procedures planned has poor functional status aiden alejandro empiric, initial blood cs are -ve her abd is more distended today than yest evening PT/OT to mobilize as tolerated prognosis guarded gentle iv fluids, pain control prn, fleets enema/dulcolax suppository prn (not sure these will help as her obstr is in the sigmoid area)
[2020-08-05] MEDS ORDERED: HUMAN PROTHROMBIN COMPLX IV SCH (12:15)
[2020-08-05] MEDS ORDERED: [UNRECOGNIZED DRUG - OTHER] IV SCH (12:15)
[2020-08-05] MEDS ORDERED: HUM PROTHROMBIN CPLX IV SCH (12:15)
[2020-08-05] MEDS: metroNIDAZOLE 250 MG in Admixture Fee 2 EACH IVPB SCH ×2 (14:31→22:03)
--- NOTE | 2020-08-05 14:53 | PDOC.BPN ---
- Brief Progress Note Encounter Date: 08/05/20 Encounter Time: 14:51 Doing better this morning. Received enema earlier with a small bowel movement. Continues to pass flatus EXAM: VS: T 98.1 HR 70 BP 122/72 RR 22 SpO2 [ ] General: Alert and oriented, no acute distress, resting comfortably Pulmonary: No dyspnea or difficulty breathing Abdomen: Soft, mild to moderately distended (improved). Nontender CV: Regular rate and rhythm, palpable distal pulses Extremities: Stable lower extremity edema I/O: no oral intake Multiple voids UOP LABORATORY / IMAGING: Laboratory analysis reviewed and demonstrates improved leukocytosis to 14.2. Urine cultures returned with presumptive E. coli. PLAN: 85-year-old female with distention due to adynamic ileus. Improved today with small bowel movement. Gastroenterology consulted; will await recommendations. Continue bowel regimen per GI recommendations. We will continue to follow. [ ]
[2020-08-05] MEDS: Atorvastatin Calcium 40 MG TAB PO SCH (20:43)
--- NOTE | 2020-08-06 00:10 | CON ---
DATE OF CONSULTATION: 08/05/2020 REASON FOR CONSULTATION: Colonic obstruction with abnormal GI imaging. CONSULTING PROVIDER: Richar Lemus MD HISTORY OF PRESENT ILLNESS: The patient is an 85-year-old female, with past medical history of hyperlipidemia; obesity; diabetes; atrial fibrillation, on anticoagulation; gout; congestive heart failure; hypertension; and rectal cancer, diagnosed in 2012 with colonic resection and reanastomosis in 2016, presenting with complaints of decreased appetite. Of note, the patient was recently admitted to the hospital with complaints of lightheaded and dizziness and was noted to have a resting heart rate in the 40s. Subsequently, she was evaluated by Cardiology with interrogation of her pacemaker and adjustments made to be baseline heart rate in the 70s. She was subsequently discharged to home and for the past 1.5 months, has been having decreased appetite with food not tasting very well/"food not tasting right." However, over the last 2 to 3 weeks after being discharged from the hospital, she has been having increased left lower quadrant abdominal pain characterized as a sharp/poking type sensation, nonradiating, occurring daily, multiple times per day, would last for 5 minutes in duration and reach a severity of 6/10. The pain was worse with certain movements and better only with lying down. She also had associated symptoms of vomiting/"spitting up" and constipation where she would have more difficulty having a bowel movement and no bowel movements over the last 3 days prior to admission. However, during the same time period, she was passing flatus adequately. With the increase in her abdominal pain, lack of bowel movements, it prompted her to seek healthcare assistance and while at [facility], was noted to have significant dilatation of her colon on imaging and admitted to the hospital for further evaluation. Currently, she denies any nausea, vomiting, fevers, chills, hematemesis, melena, hematochezia, dysphagia, odynophagia, diarrhea, or weight loss. Of note, the patient underwent colonoscopy on October 26, 2017, which had relatively normal findings, including an end-to-end colo colonic anastomosis seen in the rectum with normal healthy appearance mucosa at that time. REVIEW OF SYSTEMS: A 10-category review of systems was obtained with all responses negative, except for the pertinent positives as listed in the HPI. PAST MEDICAL HISTORY: As per HPI. PAST SURGICAL HISTORY: Appendectomy, cholecystectomy, hysterectomy, brain tumor resection, and colonic resection secondary to rectal cancer and reanastomosis. FAMILY HISTORY: Denies any GI malignancies. SOCIAL HISTORY: Denies any tobacco, alcohol, or illicit drug use. OUTPATIENT MEDICATIONS: Reviewed. ALLERGIES: NO KNOWN DRUG ALLERGIES. PHYSICAL EXAMINATION: VITAL SIGNS: Temperature 98, pulse 70, blood pressure 125/63, respiratory rate 16, and saturating 96% on room air. GENERAL: The patient was lying in bed, in no acute distress. Alert and oriented x4. CARDIOVASCULAR: Regular rate and rhythm, with no discernible murmurs, gallops, or rubs. RESPIRATORY: Clear to auscultation bilaterally, with no discernible wheezes or rales. ABDOMEN: Hypoactive bowel sounds. Significant abdominal distention that was soft to palpation, but tympanic to percussion, tenderness to palpation in the lower abdominal quadrants. EXTREMITIES: No cyanosis, clubbing, or edema. LABORATORY DATA: CBC with a white blood cell count of 14.2, hemoglobin 12.6, hematocrit 40.3, and platelets 388. INR 4.0. Chemistry with a sodium of 141, potassium 3.0, chloride 101, CO2 of 23, BUN 58, creatinine 1.93, and glucose 126. AST 14, ALT 7, alkaline phosphatase 99, total bilirubin 0.7, and lipase 28. Urinalysis consistent with urinary tract infection. IMAGING DATA: CT of the abdomen and pelvis was obtained on August 05, 2020, which showed a moderate right and a small left pleural effusion. A new pancreatic cyst was seen in the pancreatic body measuring approximately 3 cm in size. Market gaseous, distention of the colon was seen throughout the entire colon with transition of more normal caliber in the sigmoid area. An intact suture line was seen within the rectum. 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 ASSESSMENT AND PLAN: The patient is an 85-year-old female, with past medical history of hyperlipidemia; obesity; diabetes; atrial fibrillation, on anticoagulation; gout; congestive heart failure; hypertension; and rectal cancer, status post resection and reanastomosis, presenting with colonic pseudoobstruction resulting in severe colonic dilatation. Left lower abdominal pain/colonic pseudoobstruction. The patient is presenting with increased left lower quadrant abdominal pain for the last 2 to 3 weeks that was associated with increased abdominal distention and on imaging showing severe colonic distention primarily within the right colon. On further interview with the patient, she was recently admitted to the hospital for bradycardia due to malfunctioning pacemaker, which could have generated low flow to certain areas of the gut and creating transient ischemia, which could then potentially generate an ileus-type picture and her current clinical situation. She is also presenting with urinary tract infection, which could also present as an ileus-type picture as well. Currently, her cecum measures approximately 9 cm in diameter, which is not critical for perforation nor does she exhibit any evidence of pneumatosis indicative of impending or resultant perforation. RECOMMENDATIONS: 1. We would continue with either glycerin or bisacodyl suppositories with rectal stimulation daily in order to prompt colonic motility. 2. We would obtain serial KUBs daily to track progression of her colonic dilatation. 3. We would attempt to obtain normotensive pressures in addition to normal electrolytes to maintain colonic motility. 4. We would continue to monitor her heart rate with interrogation of her pacemaker, if exhibiting significant bradycardia. 5. If instrumentation or surgery is planned, we would recommend reversal of her coagulopathy with Coumadin. 6. We would recommend frequent turning of the patient in bed in order to facilitate passage of intraluminal gas. 7. If the patient's clinical status were to deteriorate, I would have a low threshold to consult General Surgery for evaluation. We will continue to follow. Please call with any questions. Job ID: [id number]
[2020-08-06] MEDS: metroNIDAZOLE 250 MG in Admixture Fee 2 EACH IVPB SCH (05:27)
[2020-08-06 06:11] LABS: Anion Gap 18 mmol/L (10-20); BUN (Urea Nitrogen) 61 mg/dL (9.8-20.1); Calc. Creatinine Clearance 32 mL/min (70-130); Calcium 8.1 mg/dL (7.8-10.44); Carbon Dioxide 23 mmol/L (23-31); Chloride 101 mmol/L (98-107); Estimated GFR-MDRD 22; Glucose 124 mg/dL (83-110); Sodium 139 mmol/L (136-145)
[2020-08-06 06:15] LABS: Potassium 2.8 mmol/L (3.5-5.1)
[2020-08-06] MEDS ORDERED: Potassium Chloride 20 MEQ TAB PO SCH ×2 (06:30)
[2020-08-06] MEDS ORDERED: Potassium Chloride 20 MEQ in Premix Bag 1 BAG IVPB SCH (07:00)
--- NOTE | 2020-08-06 08:23 | CON ---
DATE OF CONSULTATION: HISTORY OF PRESENT ILLNESS: Ms. Rico is an 85-year-old white female with known history of chronic renal failure, transferred from group home, due to persistent nausea and vomiting. The patient is unable to take anything p.o. for the moment. We are now being consulted for chronic renal failure. I did note that the creatinine was slightly high at 1.93. She has also been evaluated by the GI Service. A conservative management was suggested by the GI. The CT scan of the abdomen showed a diffusely dilated colon. There is no obvious point of obstruction. Possibility of adynamic ileus or large bowel obstruction is being considered. For the moment, we will be discontinuing her IV Lasix due to the decreased p.o. intake. REVIEW OF SYSTEMS: Positive for abdominal discomfort. Positive for nausea and vomiting. No syncopal episode. No chest pain. No fever or chills. No shortness of breath. No dysuria. No urinary frequency. Occasional joint pains. Appetite is decreased. Energy level is decreased. MEDICATIONS: 1. Albuterol two puffs q.6 p.r.n. 2. DuoNeb inhaler q.6. 3. Lipitor 40 mg at bedtime. 4. Lovenox 30 mg subcu daily. 5. Humalog sliding scale. 6. Metoprolol succinate 50 mg daily. 7. ProAir two puffs q.4 p.r.n. 8. Zofran 4 mg IV q.6. 9. Status post KCl. 10. Prednisone 10 mg daily. PAST MEDICAL HISTORY: 1. Chronic renal failure, status post acute kidney injury, prerenal etiology. 2. COPD. 3. CHF. 4. Hyperlipidemia. 5. Colon cancer - in remission. 6. Morbid obesity. 7. Obstructive sleep apnea. 8. ? of atrial fibrillation. 9. Hypertension. PAST SURGICAL HISTORY: Status post colonoscopy, status post hysterectomy, status post ileostomy placement with subsequent reversal, status post permanent pacemaker placement, status post laparoscopic low anterior resection of the rectal cancer, status post craniotomy with finding of benign tumor, status post tonsillectomy. SOCIAL HISTORY: The patient currently in a group home at [place]. No history of smoking. No alcohol. Status post blood transfusion. 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 Education, high school. Sedentary lifestyle. FAMILY HISTORY: No family history of ESRD. ALLERGIES: NONE. TRAUMA: Status post right upper extremity fracture, status post right ankle fracture. IMMUNIZATIONS: Up-to-date. HOSPITALIZATIONS: Please see past medical history. PHYSICAL EXAMINATION: VITAL SIGNS: Blood pressure is noted at 133/69, heart rate 71, respiratory rate 16, temperature 97.7, and O2 saturation 98%. GENERAL: The patient is awake, alert, obese, comfortable, not in distress. SKIN: Adequate turgor. HEENT: Pinkish conjunctivae. Anicteric sclerae. NECK: No neck mass. No carotid bruits. No JVD. CHEST: No deformities. LUNGS: Clear breath sounds. No wheezing. No crackles. HEART: Normal sinus rhythm. No murmurs. No gallops. No rubs. ABDOMEN: Globular, soft, and nontender. No masses. EXTREMITIES: No edema. No deformities. LABORATORY DATA: Laboratories of August 05, 2020; white count 14.2, hemoglobin 12.6. Sodium 141, potassium 3, chloride 101, carbon dioxide 23, BUN 58, creatinine 1.93, glucose 126, and calcium 8.4. On August 04, 2020, creatinine noted at 1.86. ASSESSMENT AND PLAN: 1. Acute kidney injury on top of her chronic renal failure - with history of decreased p.o. intake and previous intake of Lasix. Consider superimposed prerenal azotemia. The plan is to discontinue Lasix. We will start lactated Ringer's to run at 75 mL/h with incorporation of potassium. There is no indication for any dialytic intervention of this patient. 2. Nausea, vomiting, conservative management. Large bowel obstruction versus adynamic ileus. GI is following. Agree with continuing supportive care. Job ID: [id number]
[2020-08-06] MEDS: cloNIDine 0.1 MG TAB PO SCH ×2 (08:32→20:12)
[2020-08-06] MEDS: Enoxaparin Sodium 30 MG/0.3 ML SYRINGE SC SCH (08:33)
[2020-08-06] MEDS: predniSONE 5 MG TAB PO SCH (08:33)
[2020-08-06] MEDS: Ciprofloxacin Lactate/D5W 200 MG in Premix Bag 1 BAG IVPB SCH (08:33)
--- NOTE | 2020-08-06 09:09 | PRG ---
DATE OF SERVICE: 08/06/2020 DEPARTMENT: Renal Medicine. SUBJECTIVE: Ms. Rico is an 85-year-old white female, seen for her acute kidney injury on top of her chronic renal failure. Due to the history of diarrhea, use of diuretics, presumptive acute kidney injury from a prerenal azotemia was entertained. She is gently being volume repleted with LR at 75 mL/hour. In addition, diuretics are currently on hold. She is complaining of some leg swelling. Denies any chest pain or shortness of breath. GI has evaluated this patient and a conservative management was the recommendation for the abdominal pain and diarrhea. The patient voices no new complaints. No chest pain or shortness of breath. OBJECTIVE: VITAL SIGNS: Blood pressure 125/63, heart rate 80, respiratory rate 20, temperature 98.1, and O2 saturation 95%. GENERAL: Awake, alert, supine, comfortable, obese, not in distress. SKIN: Adequate turgor. HEENT: She has pinkish conjunctivae. Anicteric sclerae. No neck mass. No carotid bruits. No JVD. CHEST: No deformities. LUNGS: Clear breath sounds. No wheezing. No crackles. HEART: Normal sinus rhythm. No murmurs. No gallops. No rubs. ABDOMEN: Globular, soft, and nontender. No masses. EXTREMITIES: Positive for edema. MEDICATIONS: Medications of August 06, 2020, reviewed. LABORATORY DATA: On August 05, 2020; white count 14.2, hemoglobin 12.6. On August 06, 2020; sodium 139, potassium 2.8, chloride 101, carbon dioxide 23, BUN 61, creatinine 2.1, glucose 124, and calcium 8.1. ASSESSMENT AND PLAN: 1. Hypokalemia, p.r.n. potassium replacement. 2. Acute kidney injury/chronic renal failure. Continue normal saline 75 mL/hour. If the renal function will further worsen, we could add albumin infusion. No indication for any dialytic intervention. 3. Abdominal pain/diarrhea, clinically improving. Please note, the patient has been evaluated by GI. She is currently on antibiotics. 4. Recheck basic metabolic panel and CBC in a.m. Job ID: [id number]
[2020-08-06 09:28] LABS: #Eosinphils 0.1 thou/uL (0.0-0.7); #Lymphocytes 0.9 thou/uL (1.20-3.40); #Monocytes 0.9 thou/uL (0.11-0.59); #Neutrophils 9.8 thou/uL (1.40-6.50); %Basophils 0.2 % (0.0-1.0); %Eosinophils 1.1 % (0.0-10.0); %Lymphocytes 7.9 % (21.0-51.0); %Monocytes 7.4 % (0.0-10.0); %Neutrophils 83.4 % (42.0-75.0); Hemoglobin 11.6 g/dL (12.0-16.0); Mean Corpuscular HGB CONC 32.5 g/dL (32.0-36.0); Mean Corpuscular Hemoglobin 27.4 pg (27.0-31.0); Mean Corpuscular Volume 84.2 fL (78.0-98.0); Platelet Count 379 thou/uL (130-400); RBC Distribution Width 15.3 % (11.5-14.5); Red Blood Cell (RBC) Count 4.22 mill/uL (4.20-5.40); White Blood Cell (WBC) Count 11.8 thou/uL (4.8-10.8)
[2020-08-06 10:38] LABS: INR-International Normal Ratio 2.4; PTT 38.2 sec (22.9-36.1)
--- NOTE | 2020-08-06 10:56 | PDOC.HOSPP ---
- Subjective Encounter Date: 08/06/20 Encounter Time: 10:45 Subjective: awake, has mild abd pain (no specific point tenderness) says she is passing small flatus had a small bm yesterday per staff no nausea or vomiting is tolerating liq diet - Objective Vital Signs & Weight: Vital Signs (12 hours) Temp Pulse Resp BP BP Pulse Ox 08/06/20 08:32 125/63 08/06/20 08:00 98.3 F 69 18 120/70 92 L 08/06/20 07:02 80 20 08/06/20 04:00 98.1 F 70 16 124/64 95 08/06/20 03:15 70 16 98 08/06/20 00:00 98.2 F 70 16 118/64 95 Weight Admit Weight 227 lb Weight 227 lb I&O: 08/05/20 08/06/20 08/07/20 06:59 06:59 06:59 Intake Total 240 Balance 240 Result Diagrams: 08/06/20 09:15 08/06/20 05:22 Additional Labs: Accuchecks 08/05/20 08/05/20 08/05/20 20:52 16:02 11:00 POC Glucose 167 H 129 H 133 H Hospitalist ROS - Medication Medications: Active Medications Generic Name Dose Route Start Last Admin Trade Name Freq PRN Reason Stop Dose Admin Acetaminophen 650 mg 08/04/20 18:29 08/04/20 21:27 Tylenol PO 650 mg Q4H PRN Administration Headache/Fever/Mild Pain (1-3) Albuterol/Ipratropium 3 ml 08/04/20 18:30 08/06/20 07:02 Duoneb NEB 3 ml [id number] HAILEY Administration Atorvastatin Calcium 40 mg 08/04/20 21:00 08/05/20 20:43 Lipitor PO 40 mg HS HAILEY Administration Clonidine 0.1 mg 08/04/20 21:00 08/06/20 08:32 Catapres PO 0.1 mg BID HAILEY Administration Enoxaparin Sodium 30 mg 08/05/20 09:00 08/06/20 08:33 Lovenox SC 30 mg 0900 HAILEY Administration Potassium Chloride 20 meq/ 1,010 mls @ 75 mls/hr 08/05/20 07:30 08/05/20 21: 03 Lactated Ringer's IV 1,010 mls .[id number] HAILEY Administration Metoprolol Succinate 50 mg 08/05/20 09:00 08/06/20 08:34 Toprol Xl PO 50 mg DAILY HAILEY Administration Prednisone 10 mg 08/05/20 08:00 08/06/20 08:33 Prednisone PO 10 mg QAM-WM HAILEY Administration Sodium Chloride 10 ml 08/04/20 21:00 08/06/20 08:34 Flush - Normal Saline IVF 10 ml Q12HR HAILEY Administration - Exam General Appearance: awake alert Eye: PERRL, anicteric sclera ENT: no oropharyngeal lesions, moist mucosa Neck: supple, no JVD Heart: RRR, no murmur Respiratory: no wheezes, no rales Gastrointestinal: soft, distended Extremities: no cyanosis, 1+ LE edema Neurological: cranial nerve grossly intact, no focal deficits Psychiatric: normal affect, A&O x 3 Hosp A/P (1) Large bowel obstruction Code(s): K56.609 - UNSP INTESTNL OBST, UNSP TO PARTIAL VERSUS COMPLETE OBST Status: Acute (2) LAKEISHA (acute kidney injury) Code(s): N17.9 - ACUTE KIDNEY FAILURE, UNSPECIFIED Status: Acute (3) Anemia Code(s): D64.9 - ANEMIA, UNSPECIFIED Status: Chronic Qualifiers: Anemia type: unspecified type Qualified Code(s): D64.9 - Anemia, unspecified (4) Supratherapeutic INR Code(s): R79.1 - ABNORMAL COAGULATION PROFILE Status: Acute (5) H/O cardiac pacemaker Code(s): Z95.0 - PRESENCE OF CARDIAC PACEMAKER Status: Chronic (6) HTN (hypertension) Code(s): I10 - ESSENTIAL (PRIMARY) HYPERTENSION Status: Chronic Qualifiers: (7) CLEMENCIA (obstructive sleep apnea) Code(s): G47.33 - OBSTRUCTIVE SLEEP APNEA (ADULT) (PEDIATRIC) Status: Chronic (8) Obesity (BMI 30-39.9) Code(s): E66.9 - OBESITY, UNSPECIFIED Status: Chronic (9) Paroxysmal atrial fibrillation Code(s): I48.0 - PAROXYSMAL ATRIAL FIBRILLATION Status: Chronic (10) Physical deconditioning Code(s): R53.81 - OTHER MALAISE Status: Chronic (11) Type 2 diabetes mellitus Status: Chronic Qualifiers: Diabetes mellitus penitentiary insulin use: without penitentiary use Diabetes mellitus complication status: with kidney complications Diabetes mellitus complication detail: with chronic kidney disease Chronic kidney disease stage : stage 3 (moderate) Qualified Code(s): E11.22 - Type 2 diabetes mellitus with diabetic chronic kidney disease; N18.3 - Chronic kidney disease, stage 3 ( moderate) - Plan is on liq diet likely will need diverting colostomy if flex sigmoidoscopy doesn't relieve her, d/w Dr.Sultz lewis one dose due to persitent and increasing inr for safety with procedures planned was given on 08/05, await inr levels today (is a difficult stick for bld draw?) has poor functional status empiric zosyn for uti and abd issue, blood cs are -ve, urine cs grew enterococcus resistant to quinolones. her abd is distended PT/OT to mobilize as tolerated prognosis guarded gentle iv fluids, pain control prn, fleets enema/dulcolax suppository prn (not sure these will help as her obstr is in the sigmoid area)
--- NOTE | 2020-08-06 11:02 | RAD ---
EXAM: Single view of the abdomen HISTORY: Abdominal distention COMPARISON: CT abdomen/pelvis 08/04/2020 FINDINGS: Single view of the abdomen shows multiple air-filled loops of large and small bowel. The co gaston is distended as it was on CT. The cecum measures 10.0 cm in greatest dimension. The transverse colon measures 11.4 cm in greatest dimension. No suspicious calcifications are seen. The bones are unremarkable. IMPRESSION: Air-filled loops of large and small bowel as above.
--- NOTE | 2020-08-06 11:25 | PRG ---
DATE OF SERVICE: REASON FOR CONSULTATION: Colonic pseudo-obstruction with abnormal GI imaging. SUBJECTIVE: Yesterday evening, the patient did have a bowel movement consistent of a small volume of semi-solid liquid stool. She has been continuing to be able to pass flatus as well; however, her abdominal pain continues and is relatively unchanged when compared to previous. Otherwise, she denies any nausea, vomiting, fevers, chills, hematemesis, melena, or hematochezia. OBJECTIVE: VITAL SIGNS: Temperature 98.3, pulse 69, blood pressure 125/63, respiratory rate 18, saturating 92% on room air. GENERAL: The patient was lying in bed, in no acute distress. Alert and oriented x4. CARDIOVASCULAR: Regular rate and rhythm. RESPIRATORY: Clear to auscultation bilaterally. ABDOMEN: Hypoactive bowel sounds. Significant abdominal distention, but soft to palpation. Tympanic to percussion. Tenderness to palpation in the left lower and left mid abdomen. EXTREMITIES: No cyanosis, clubbing, or edema. LABORATORY DATA: CBC with a white blood cell count of 11.8, hemoglobin of 11.6, hematocrit 35.5, platelets 371. Chemistry with a sodium of 139, potassium 2.8, chloride 101, CO2 of 23, BUN 61, creatinine 2.1, glucose 124. Urine culture was positive for Enterococcus faecalis. IMAGING DATA: KUB obtained this morning is pending at this time. ASSESSMENT AND PLAN: The patient is an 85-year-old female with past medical history of hyperlipidemia, obesity, diabetes, atrial fibrillation on anticoagulation, gout, congestive heart failure, hypertension, cardiac arrhythmia with pacemaker placement, and rectal cancer status post resection and reanastomosis, presenting with colonic pseudo-obstruction resulting in severe colonic dilatation and left lower quadrant abdominal pain. Left lower abdominal pain/colonic pseudo-obstruction. The patient initially presented with a 2- to 3-week history of increasing abdominal distention and left lower quadrant abdominal pain with imaging on admission showing significant dilation of the colon consistent with an ileus type picture versus colonic pseudo-obstruction with no transition point. Prior to the onset of this abdominal pain and abdominal distention, the patient did have significant bradycardia that resolved with interrogation of her pacemaker and readjustment of settings. With this bradycardia, it could have generated decreased blood flow to the colon/small intestine in addition to hypo-oxygenation resulted in ischemia, which could potentially generate the current clinical picture. Currently, her abdominal pain is relatively unchanged, but she is having bowel movements that she is passing gas, making a colonic dysmotility much less likely and a complete obstruction highly unlikely. Based on the most current imaging, she does not have any evidence of perforation or impending perforation. RECOMMENDATIONS: 1. Would continue with Bisacodyl suppositories with rectal stimulation daily in order to prompt colonic motility. 2. Would obtain serial KUBs daily to track progression of her colonic dilatation. 3. Attempt to obtain normotensive pressures and normal heart rate. 4. Maintain normal electrolytes to maintain colonic motility. 5. Recommend frequent turning in the bed to facilitate passage of intraluminal gas. 6. If the patient was to become acidotic or increasing abdominal pain with fever, I would have a low threshold to consult General Surgery for evaluation. We will continue to follow. Dr. Borrego will be following tomorrow. Please direct any questions to him tomorrow. Job ID: [id number]
[2020-08-06] MEDS: Piperacillin/Tazobactam 2.25 GM in Sodium Chloride 0.9% 100 ML IVPB SCH ×3 (12:02→23:47)
[2020-08-06] MEDS: Acetaminophen 325 MG TAB PO PRN (12:03)
--- NOTE | 2020-08-06 14:03 | PDOC.FMACP ---
Advance Care Planning - Problem (1) Large bowel obstruction Status: Acute Code(s): K56.609 - UNSP INTESTNL OBST, UNSP TO PARTIAL VERSUS COMPLETE OBST (2) LAKEISHA (acute kidney injury) Status: Acute Code(s): N17.9 - ACUTE KIDNEY FAILURE, UNSPECIFIED (3) Morbid obesity with BMI of 45.0-49.9, adult Status: Acute Code(s): E66.01 - MORBID (SEVERE) OBESITY DUE TO EXCESS CALORIES ; Z68.42 - BODY MASS INDEX (BMI) 45.0-49.9, ADULT (4) Palliative care encounter Status: Acute Code(s): Z51.5 - ENCOUNTER FOR PALLIATIVE CARE (5) Anemia Status: Chronic Code(s): D64.9 - ANEMIA, UNSPECIFIED Qualifiers: Anemia type: unspecified type Qualified Code(s): D64.9 - Anemia, unspecified (6) Atrial fibrillation Status: Chronic Code(s): I48.91 - UNSPECIFIED ATRIAL FIBRILLATION Qualifiers: Atrial fibrillation type: longstanding persistent Qualified Code(s): I48.11 - Longstanding persistent atrial fibrillation (7) Chronic anticoagulation Status: Chronic Code(s): Z79.01 - STOCK PREPARATION SUPERVISOR (CURRENT) USE OF ANTICOAGULANTS (8) HTN (hypertension) Status: Chronic Code(s): I10 - ESSENTIAL (PRIMARY) HYPERTENSION Qualifiers: (9) CLEMENCIA (obstructive sleep apnea) Status: Chronic Code(s): G47.33 - OBSTRUCTIVE SLEEP APNEA (ADULT) (PEDIATRIC) - Note Participants: patient, palliative care Summary: Palliative Care revisited Advanced Care Planning, opportunity to decline. The diagnosis, prognosis and goals of care were discussed. Appropriate forms and documentation to accomplish the goals of care were discussed. All questions were answered. Confirmed MPOA and Directive to Physician in chart continue to be current and reflect the patient wishes. Continue with full resuscitation measures. Time Spent (mins): 15
[2020-08-06] MEDS ORDERED: Phytonadione 10 MG/ML AMP PO SCH (15:00)
--- NOTE | 2020-08-06 16:26 | EKG ---
Test Reason : ABD PAIN Blood Pressure : / mmHG Vent. Rate : 070 BPM Atrial Rate : 312 BPM P-R Int : 000 ms QRS Dur : 162 ms QT Int : 492 ms P-R-T Axes : 000 -63 097 degrees QTc Int : 531 ms Ventricular-paced rhythm Abnormal ECG Confirmed by LORE WHITE ([id number]), business editor POPPY VALENCIA ([id number]) on 08/06/2020 4:25:35 PM Referred By: CHRISTOPHER Confirmed By:LORE WHITE
[2020-08-06] MEDS: Potassium Chloride 20 MEQ in Lactated Ringer's 1,000 ML IV SCH ×2 (20:11→23:46)
[2020-08-06] MEDS: Atorvastatin Calcium 40 MG TAB PO SCH (20:11)
[2020-08-07 03:46] LABS: #Eosinphils 0.1 thou/uL (0.0-0.7); #Lymphocytes 0.8 thou/uL (1.20-3.40); #Neutrophils 9.1 thou/uL (1.40-6.50); %Eosinophils 0.5 % (0.0-10.0); %Lymphocytes 6.9 % (21.0-51.0); %Neutrophils 83.7 % (42.0-75.0); Hemoglobin 12.1 g/dL (12.0-16.0); Mean Corpuscular HGB CONC 31.8 g/dL (32.0-36.0); Mean Corpuscular Hemoglobin 26.6 pg (27.0-31.0); Mean Corpuscular Volume 83.7 fL (78.0-98.0); Mean Platelet Volume 9.8 fL (7.4-10.4); Platelet Count 364 thou/uL (130-400); RBC Distribution Width 15.5 % (11.5-14.5); Red Blood Cell (RBC) Count 4.55 mill/uL (4.20-5.40); White Blood Cell (WBC) Count 10.8 thou/uL (4.8-10.8)
[2020-08-07 04:05] LABS: Anion Gap 18 mmol/L (10-20); BUN (Urea Nitrogen) 63 mg/dL (9.8-20.1); Calc. Creatinine Clearance 28 mL/min (70-130); Calcium 8.4 mg/dL (7.8-10.44); Carbon Dioxide 24 mmol/L (23-31); Chloride 101 mmol/L (98-107); Estimated GFR-MDRD 19; Glucose 146 mg/dL (83-110); Potassium 3.5 mmol/L (3.5-5.1); Sodium 139 mmol/L (136-145)
[2020-08-07] MEDS: Piperacillin/Tazobactam 2.25 GM in Sodium Chloride 0.9% 100 ML IVPB SCH ×4 (05:28→23:14)
[2020-08-07] MEDS ORDERED: Albumin 25% 25 GM/100 ML BOT IVPB ONE (06:56)
[2020-08-07] MEDS: Ondansetron PF 4 MG/2 ML Vial IVP PRN (07:26)
[2020-08-07] MEDS ORDERED: Albumin 25% 25 GM/100 ML BOT IVPB SCH (08:00)
[2020-08-07 08:02] LABS: INR-International Normal Ratio 1.6; PTT 34.8 sec (22.9-36.1); Prothrombin Time 19.3 sec (12.0-14.7)
[2020-08-07] MEDS ORDERED: Furosemide 40 MG/4 ML VIAL SLOW IVP SCH ×2 (08:45→16:00)
[2020-08-07] MEDS: Enoxaparin Sodium 30 MG/0.3 ML SYRINGE SC SCH (08:48)
[2020-08-07] MEDS: cloNIDine 0.1 MG TAB PO SCH ×2 (08:48→19:54)
--- NOTE | 2020-08-07 08:57 | PRG ---
DATE OF SERVICE: 08/07/2020 SUBJECTIVE: Ms. Rico is an 85-year-old white female, followed up for her acute kidney injury on top of her chronic renal failure. Creatinine noted to be higher. She initially was felt to have some component of prerenal azotemia. She has been empirically treated with normal saline. In addition, diuretics have been hold temporarily. She does complain of leg edema. OBJECTIVE: VITAL SIGNS: Blood pressure 130/76, heart rate 68, respiratory rate 16, temperature 97.9, and O2 saturation 96% on room air. GENERAL: Awake, alert, obese, comfortable, not in distress. SKIN: Adequate turgor. HEENT: Pinkish conjunctivae. Anicteric sclerae. NECK: No neck mass. No carotid bruits. No JVD. CHEST: No deformities. LUNGS: Clear breath sounds. No wheezing. No crackles. HEART: Normal sinus rhythm. No murmur. No gallops. No rubs. ABDOMEN: Globular, soft, and nontender. No masses. EXTREMITIES: Positive for edema. No deformities. MEDICATIONS: Medications of August 07, 2020, reviewed. LABORATORY DATA: Laboratories of August 07, 2020; white count 10.8, hemoglobin 12.1. Sodium 139, potassium 3.5, chloride 101, carbon dioxide 24, BUN 63, creatinine 2.38, GFR 19 mL/minute, and calcium 8.4. ASSESSMENT AND PLAN: Acute kidney injury on top of her chronic renal failure. I suspect a superimposed prerenal azotemia. Her urinalysis on admission did not show any finding of pigmented granular casts. For the moment, continue current management. I have started her on albumin infusion. Due to the complaints of leg edema, Lasix 40 mg IV x1 dose was given. We will continue albumin at 25 g IV q.6 for a total of 4 doses. There is no indication for any emergent dialysis with this patient. Continue supportive care. We will be rechecking back basic met in a.m. Job ID: [id number]
[2020-08-07] MEDS: predniSONE 5 MG TAB PO SCH (09:29)
[2020-08-07] MEDS ORDERED: Fleet Enema 133 ML BOT FS SCH (09:30)
--- NOTE | 2020-08-07 10:49 | PDOC.HOSPP ---
- Subjective Encounter Date: 08/07/20 Encounter Time: 10:40 Subjective: awake, had one episode of bilious vomiting this am is comfortable now no bm or flatus from 36hrs - Objective Vital Signs & Weight: Vital Signs (12 hours) Temp Pulse Resp BP BP Pulse Ox 08/07/20 08:48 109/63 08/07/20 07:59 97.9 F 68 16 130/76 96 08/07/20 07:17 77 18 98 08/07/20 02:20 70 16 97 Weight Admit Weight 227 lb Weight 227 lb I&O: 08/06/20 08/07/20 08/08/20 06:59 06:59 06:59 Intake Total 240 1040 Output Total 450 Balance 240 590 Result Diagrams: 08/07/20 03:28 08/07/20 03:28 Additional Labs: Accuchecks 08/06/20 08/06/20 08/06/20 20:45 16:21 11:19 POC Glucose 175 H 130 H 159 H Hospitalist ROS - Medication Medications: Active Medications Generic Name Dose Route Start Last Admin Trade Name Freq PRN Reason Stop Dose Admin Acetaminophen 650 mg 08/04/20 18:29 08/06/20 12:03 Tylenol PO 650 mg Q4H PRN Administration Headache/Fever/Mild Pain (1-3) Albumin Human 25 gm 08/07/20 08:00 08/07/20 08:49 Albumin 25% IVPB 08/08/20 02:01 25 gm Q6H HAILEY Administration Albuterol/Ipratropium 3 ml 08/04/20 18:30 08/07/20 07:17 Duoneb NEB 3 ml [id number] HAILEY Administration Atorvastatin Calcium 40 mg 08/04/20 21:00 08/06/20 20:11 Lipitor PO 40 mg HS HAILEY Administration Clonidine 0.1 mg 08/04/20 21:00 08/07/20 08:48 Catapres PO 0.1 mg BID HAILEY Administration Enoxaparin Sodium 30 mg 08/05/20 09:00 08/07/20 08:48 Lovenox SC 30 mg 0900 HAILEY Administration Potassium Chloride 20 meq/ 1,010 mls @ 75 mls/hr 08/05/20 07:30 08/06/20 23: 46 Lactated Ringer's IV Not Given .[id number] HAILEY Piperacillin Sod/Tazobactam 100 mls @ 200 mls/hr 08/06/20 12:00 08/07/20 05: 28 Sod 2.25 gm/ Sodium Chloride IVPB 100 mls Q6HR HAILEY Administration Insulin Human Lispro 0 units 08/04/20 20:43 08/06/20 11:54 Humalog SC 2 units .MILD SLIDING SCALE PRN Administration Mild Correctional Scale Metoprolol Succinate 50 mg 08/05/20 09:00 08/07/20 08:48 Toprol Xl PO 50 mg DAILY HAILEY Administration Ondansetron HCl 4 mg 08/04/20 18:29 08/07/20 07:26 Zofran IVP 4 mg Q6H PRN Administration Nausea/Vomiting Prednisone 10 mg 08/05/20 08:00 08/07/20 09:29 Prednisone PO 10 mg QAM-WM HAILEY Administration Sodium Biphosphate/Sodium Phosphate 133 ml 08/07/20 09:30 08/07/20 10:30 Fleet Enema FS 08/07/20 15:00 133 ml NOW HAILEY Administration Sodium Chloride 10 ml 08/04/20 21:00 08/07/20 08:49 Flush - Normal Saline IVF Not Given Q12HR HAILEY - Exam General Appearance: awake alert Eye: PERRL, anicteric sclera ENT: no oropharyngeal lesions, moist mucosa Neck: supple, no JVD Heart: RRR, no murmur Respiratory: no wheezes, no rales Gastrointestinal: soft, no rigidity, distended Extremities: no cyanosis, 1+ LE edema Neurological: cranial nerve grossly intact, no focal deficits Psychiatric: A&O x 3 Hosp A/P (1) Large bowel obstruction Code(s): K56.609 - UNSP INTESTNL OBST, UNSP TO PARTIAL VERSUS COMPLETE OBST Status: Acute (2) LAKEISHA (acute kidney injury) Code(s): N17.9 - ACUTE KIDNEY FAILURE, UNSPECIFIED Status: Acute (3) Anemia Code(s): D64.9 - ANEMIA, UNSPECIFIED Status: Chronic Qualifiers: Anemia type: unspecified type Qualified Code(s): D64.9 - Anemia, unspecified (4) Supratherapeutic INR Code(s): R79.1 - ABNORMAL COAGULATION PROFILE Status: Resolved (5) H/O cardiac pacemaker Code(s): Z95.0 - PRESENCE OF CARDIAC PACEMAKER Status: Chronic (6) HTN (hypertension) Code(s): I10 - ESSENTIAL (PRIMARY) HYPERTENSION Status: Chronic Qualifiers: (7) CLEMENCIA (obstructive sleep apnea) Code(s): G47.33 - OBSTRUCTIVE SLEEP APNEA (ADULT) (PEDIATRIC) Status: Chronic (8) Obesity (BMI 30-39.9) Code(s): E66.9 - OBESITY, UNSPECIFIED Status: Chronic (9) Paroxysmal atrial fibrillation Code(s): I48.0 - PAROXYSMAL ATRIAL FIBRILLATION Status: Chronic (10) Physical deconditioning Code(s): R53.81 - OTHER MALAISE Status: Chronic (11) Type 2 diabetes mellitus Status: Chronic Qualifiers: Diabetes mellitus correction insulin use: without correction use Diabetes mellitus complication status: with kidney complications Diabetes mellitus complication detail: with chronic kidney disease Chronic kidney disease stage : stage 3 (moderate) Qualified Code(s): E11.22 - Type 2 diabetes mellitus with diabetic chronic kidney disease; N18.3 - Chronic kidney disease, stage 3 ( moderate) - Plan keep her npo likely will need diverting colostomy if flex sigmoidoscopy doesn't relieve her, d/w d/w , he will evaluate kub from today and compare with previous ones and d/w GI for a plan. kcentra one dose due to persitent and increasing inr for safety with procedures planned was given on 08/05, vit k 10mg 08/06, inr is 1.6 has poor functional status empiric zosyn for uti and abd issue, blood cs are -ve, urine cs grew enterococcus resistant to quinolones. her abd is distended PT/OT to mobilize as tolerated prognosis guarded gentle iv fluids, pain control prn, fleets enema/dulcolax suppository one dose now.
--- NOTE | 2020-08-07 11:27 | RAD ---
KUB INDICATION: Abdominal pain COMPARISON: August 06, 2020 FINDINGS: Bowel gas: Dilated gas filled colon and small bowel is again seen within the abdomen. Lung bases: There is partial visualization of a dual-lead pacemaker. Additional findings: Cholecystectomy clips are seen within the right upper quadrant. Osseous structures: No acute osseous abnormality is demonstrated. IMPRESSION: 1. Persistent prominent gas-filled loops of colon and small bowel may reflect low colonic obstruction or ileus.
[2020-08-07] MEDS: Potassium Chloride 20 MEQ in Lactated Ringer's 1,000 ML IV SCH (12:08)
--- NOTE | 2020-08-07 13:08 | PQF ---
CLINICAL DOCUMENTATION CLARIFICATION FORM: Dear Dr. Francisco VELASCO MD Date: 08/07/2020 1254 / 08/07/2020 0948 Please exercise your independent, professional judgment in responding to the clarification form. Clinical indicators are provided on the bottom of this form for your review. Please check appropriate box(es): [ ] Protein Calorie Malnutrition: [ ] Mild [ ] Moderate [ ] Severe [ ] Other Malnutrition (please specify) __ [ ] Underweight without malnutrition [ ] Cachexia [ ] Other diagnosis [ x] Unable to determine In addition, please specify: Present on Admission (POA): [ ] Yes [ ] No [ ] Unable to determine For continuity of documentation, please document condition throughout progress notes and discharge summary. Thank You. To be completed by CDI/Coding staff for physician review: CLINICAL INDICATORS - SIGNS / SYMPTOMS / LABS / RESULTS AND LOCATION IN MR 08/06 RD ASSESSMENT: NUTRITION DIAGNOSIS MALNUTRITION RELATED TO ISCHEMIA VS DECREASED MOTILITY VS. OBSTRUCTION EVIDENCED BY PATIENT REPORTING LIMITED PO INTAKE X 1 MONTH LIKELY MEETING < 75% OF ESTIMATED NEEDS FOR > 7 DAYS, 3+ PITTING EDEMA PRESENT SUGGESTIVE OF MODERATED MALNUTRITION IN THE CONTEXT OF ACUTE ILLNESS. 08/07 PN (ROD) HAD ONE EPISODE OF BILIOUS VOMITING THIS AM RISK FACTORS / RESULTS AND LOCATION IN MR DX LARGE BOWEL OBSTRUCTION, ADVANCED AGE (85) (PN /ROD) TREATMENT / RESULTS AND LOCATION IN MR DIETARY CONSULT 08/06 RECOMMEND GLUCERNA SHAKES TID (RD/08/06) Moderate Malnutrition (in acute illness) Energy Intake: <75% of estimated energy requirement for > 7 days Weight Loss: 1-2%/1 week; 5%/ 1 month; 7.5%/3 months Other: mild body fat loss; mild muscle mass loss; mild fluid accumulation; Severe Malnutrition (in acute illness) Energy Intake: = 50% of estimated energy requirement for = 5 days Weight Loss: >2%/1 week; >5%/1 month; >7.5%/3 months Other: moderate body fat loss; moderate muscle mass loss; moderate- severe fluid accumulation; measurably reduced settlement processor strength Moderate Malnutrition (in chronic illness) Energy Intake: <75% of estimated energy requirement for =1 month Weight Loss: 5%/1 month; 7.5%/3 months; 10%/6 months; 20%/1 year Other: mild body fat loss; mild muscle mass loss; mild fluid accumulation Severe Malnutrition (in chronic illness) Energy Intake: =75% of estimated energy requirement for =1 month Weight Loss: >5%/1 month; >7.5%/3 months; >10%/6 months; >20%/1 year Other: severe body fat loss; severe muscle mass loss; severe fluid accumulation; measurably reduced settlement processor strength THANK YOU! CDS Signature: CATINA MURPHY RN Phone #:[phone] Date: 2019 This is a permanent part of the Medical Record [facility]
[2020-08-07] MEDS: Albumin 25% 25 GM/100 ML BOT IVPB SCH ×2 (15:35→19:55)
--- NOTE | 2020-08-07 16:11 | PDOC.GSPN ---
Surgery Progress Note: Subj - Subjective Narrative: Patient reports increased distention and abdominal discomfort over the last 48 hours. This includes minor bouts of bilious emesis. Discussion with the nursing staff reveals that she continues to have flatus throughout the day. She has had a couple of smear bowel movements, but nothing of significance. Surgery Progress Note: Obj - Vital signs Vital signs: Vital Signs - Most Recent Temp Pulse Resp BP Pulse Ox 97.9 F 71 18 109/63 97 08/07/20 07:59 08/07/20 14:07 08/07/20 14:07 08/07/20 08:48 08/07/20 14:07 - Physical Exam General: no distress Cardiovascular: regular rate and rhythm Respiratory: normal expansion Abdomen: distended Surgery Progress Note: Results - Labs Result Diagrams: 08/07/20 03:28 08/07/20 03:28 Lab results: Laboratory Results - last 24 hr 08/07/20 08/07/20 08/07/20 03:28 07:43 11:24 PT 19.3 H INR 1.6 APTT 34.8 Sodium 139 Potassium 3.5 Chloride 101 Carbon Dioxide 24 Anion Gap 18 BUN 63 H Creatinine 2.38 H Estimated GFR (MDRD) 19 Glucose 146 H POC Glucose 121 H Calcium 8.4 Surgery Progress Note: A/P - Problem (1) Large bowel obstruction Current Visit: Yes Code(s): K56.609 - UNSP INTESTNL OBST, UNSP TO PARTIAL VERSUS COMPLETE OBST Status: Acute - Plan Plan: Signs and symptoms consistent with colonic pseudoobstruction. Case discussed with gastroenterology. They will assess today. Options include a neostigmine trial and possible endoscopic decompression. Ultimately, if the patient's condition does not improve, she would need a diverting colostomy to decompress her colon. Will follow and coordinate with GI.
--- NOTE | 2020-08-07 18:10 | PRG ---
DATE OF SERVICE: 08/07/2020 SUBJECTIVE: Ms. Rico had worsening of abdominal discomfort and multiple episodes of bilious emesis this morning. She has not had any vomiting this afternoon. She has not been passing flatus. She did have a smear of stool a couple of hours ago. Abdomen remains distended. She is otherwise comfortable. OBJECTIVE: VITAL SIGNS: Temperature 97.9, pulse 71, blood pressure 130/76, 97% oxygen saturation on room air. GENERAL: No acute distress, lying in bed comfortably. HEART: Regular rate and rhythm. LUNGS: Clear to auscultation bilaterally. ABDOMEN: Distended, tympanitic to percussion. Bowel sounds are hypoactive. Some mild tenderness to palpation diffusely. EXTREMITIES: No peripheral edema. LABORATORY STUDIES: WBC 10.8, hemoglobin 12.1, and platelets 364. INR down to 1.6. Sodium 139, potassium 3.5, BUN 63, creatinine 2.38, and glucose 121. COVID PCR is negative. Urine culture growing Enterococcus faecalis. Blood culture showed no growth at 48 hours. Abdominal x-ray from earlier today showed persistence of distended gas-filled loops of colon and small bowel. ASSESSMENT AND PLAN: 1. 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 2. History of rectal cancer with colorectal anastomosis in 2016. I had a long discussion with the patient as well as her daughter this afternoon. The patient really has not had significant clinical improvement over the past 3 days with current conservative measures. The two options remaining would be either administration of neostigmine or flexible sigmoidoscopy for decompression. On the whole, I think the risk/benefit balance actually favors flexible sigmoidoscopy with decompression at this time. Her last colonoscopy was in September 2017, and at that time, evidently the colorectal anastomosis was widely patent. However, there is still some possibility that she might have developed fibrosis and stricture in that area or possibly recurrence, and I think this needs to be more definitively ruled out prior to considering neostigmine administration. We will plan for unprepped flexible sigmoidoscopy for evaluation of this area and attempted decompression tomorrow. If this were not efficacious at achieving sustained decompression and the anastomosis were patent, then neostigmine administration could be considered thereafter, though I would advise it be done at a lower dose of only 1 mg given her history of a colorectal anastomosis, if needed. Job ID: [id number]
[2020-08-07] MEDS: Atorvastatin Calcium 40 MG TAB PO SCH (19:55)
[2020-08-08] MEDS: Albumin 25% 25 GM/100 ML BOT IVPB SCH (02:03)
[2020-08-08] MEDS: Potassium Chloride 20 MEQ in Lactated Ringer's 1,000 ML IV SCH ×3 (02:07→23:21)
[2020-08-08 04:12] LABS: INR-International Normal Ratio 1.4; Prothrombin Time 17.4 sec (12.0-14.7)
[2020-08-08 04:29] LABS: Anion Gap 21 mmol/L (10-20); BUN (Urea Nitrogen) 63 mg/dL (9.8-20.1); Calc. Creatinine Clearance 28 mL/min (70-130); Calcium 7.9 mg/dL (7.8-10.44); Carbon Dioxide 23 mmol/L (23-31); Chloride 102 mmol/L (98-107); Estimated GFR-MDRD 19; Glucose 104 mg/dL (83-110); Sodium 143 mmol/L (136-145)
[2020-08-08] MEDS: Piperacillin/Tazobactam 2.25 GM in Sodium Chloride 0.9% 100 ML IVPB SCH ×4 (05:08→23:21)
[2020-08-08] MEDS: predniSONE 5 MG TAB PO SCH (08:21)
[2020-08-08] MEDS: Enoxaparin Sodium 30 MG/0.3 ML SYRINGE SC SCH (08:22)
[2020-08-08] MEDS: cloNIDine 0.1 MG TAB PO SCH ×2 (08:23→19:46)
[2020-08-08] MEDS ORDERED: Ketamine 50 MG/ML (10ML VIAL) ONE (09:40)
[2020-08-08] MEDS ORDERED: Ondansetron HCl/PF 4 MG/2 ML Vial IVP PRN (10:36)
[2020-08-08] MEDS ORDERED: PROPOFOL 200 MG/20 ML VIAL ONE (10:45)
--- NOTE | 2020-08-08 14:51 | OP ---
DATE OF PROCEDURE: 08/08/2020 PREOPERATIVE DIAGNOSES: 1. Colon distention, obstruction versus Nick's. 2. History of rectal cancer with low-anterior anastomosis. 3. Noncontrast CT on 08/04 showed air present in the vagina adjacent to a suture line and the radiologist could not rule out a small fistula. 4. The cecum was 8 cm at that time. She has not responded to conservative therapy. POSTOPERATIVE DIAGNOSES: 1. Colonic ileus, Nick's. 2. Anastomosis with some inflammatory polypoid lesions. 3. No prep, this is unprepped and therefore could not evaluate the anastomosis more fully. 4. Area of ulceration in the hepatic flexure consistent with ischemic colitis, biopsied. 5. Rectal decompression tube left in place. RECOMMENDATIONS: 1. Depending on the patient's overall health, consider repeat colonoscopy with full prep at a later date. 2. Avoid all narcotics. Mobilize the patient and keep rectal decompression tube in place. Await biopsies. Start clear liquids. ANESTHESIA: TIVA. DESCRIPTION OF OPERATION: After the patient was informed of the risk, benefits, and possible complications of endoscopy including perforation, reaction to medication, aspiration, informed consent was obtained. The patient was brought to the endoscopy suite, where she was sedated in gradual fashion. Once she was comfortable, a rectal examination was performed, and there was no fecal impaction. Anastomosis could be palpated, some soft polypoid areas there. The endoscope was advanced to the anal canal. The prep was exceedingly poor. The endoscope was advanced through the colon with irrigation of about 4 L of sterile water with insufflation with CO2 gas only. After we got out of the rectum and sigmoid, colon was very distended. This was decompressed. We were able to get the colon to the right colon to visualize the cecum, although the mucosa could not be visualized because of the heavy amount of stool; in the region of hepatic flexure, we could irrigate some of the stool away and saw an ulcer, probably 4 x 3 cm on the antimesenteric border consistent with area of ischemic colitis and multiple biopsies were obtained. We could only visualize less than 10% of the mucosa of the colon as there was heavily caked, thick stool. Again, the irrigation was carried out to remove as much as we could and decompress the colon of all gas and air as much as possible. We had to leave a wire in place and over that wire we evaluated the anastomosis, which showed no overt large fistulous tracts or inflammation or cancer. A rectal tube was placed over the guidewire and the guidewire was removed, it was affixed to her right buttock and rectal bag was placed on that. The prep was too poor to evaluate the anastomosis any further, but there was no obstruction in this area. The scope was removed. The patient tolerated the procedure well and was brought to recovery room in stable condition. Job ID: [id number]
[2020-08-08] MEDS: Atorvastatin Calcium 40 MG TAB PO SCH (20:02)
[2020-08-09] MEDS: Ondansetron PF 4 MG/2 ML Vial IVP PRN ×3 (03:28→09:44)
[2020-08-09 03:45] LABS: #Eosinphils 0.1 thou/uL (0.0-0.7); #Lymphocytes 0.6 thou/uL (1.20-3.40); #Monocytes 0.7 thou/uL (0.11-0.59); #Neutrophils 7.5 thou/uL (1.40-6.50); %Eosinophils 1.1 % (0.0-10.0); %Lymphocytes 6.7 % (21.0-51.0); %Monocytes 8.2 % (0.0-10.0); Hemoglobin 11.3 g/dL (12.0-16.0); Mean Corpuscular HGB CONC 31.2 g/dL (32.0-36.0); Mean Corpuscular Hemoglobin 26.6 pg (27.0-31.0); Mean Corpuscular Volume 85.2 fL (78.0-98.0); Mean Platelet Volume 9.7 fL (7.4-10.4); Platelet Count 263 thou/uL (130-400); RBC Distribution Width 15.2 % (11.5-14.5); Red Blood Cell (RBC) Count 4.27 mill/uL (4.20-5.40)
[2020-08-09 03:52] LABS: INR-International Normal Ratio 1.4; PTT 32.1 sec (22.9-36.1); Prothrombin Time 16.9 sec (12.0-14.7)
[2020-08-09 04:05] LABS: Anion Gap 20 mmol/L (10-20); BUN (Urea Nitrogen) 55 mg/dL (9.8-20.1); Calc. Creatinine Clearance 30 mL/min (70-130); Calcium 7.2 mg/dL (7.8-10.44); Carbon Dioxide 23 mmol/L (23-31); Chloride 104 mmol/L (98-107); Estimated GFR-MDRD 21; Glucose 97 mg/dL (83-110); Magnesium 1.3 mg/dL (1.6-2.6); Phosphorus 4.7 mg/dL (2.3-4.7); Sodium 144 mmol/L (136-145)
[2020-08-09 04:24] LABS: Potassium 2.8 mmol/L (3.5-5.1)
[2020-08-09] MEDS ORDERED: Electrolyte Replacement Protoc 1 EACH EACH PO PRN (04:41)
[2020-08-09] MEDS: Potassium Chloride 20 MEQ TAB PO SCH ×2 (04:57→05:19)
[2020-08-09] MEDS ORDERED: Magnesium 2 GM/50 ML 2 GM in Premix Bag 1 BAG IVPB SCH (05:00)
[2020-08-09] MEDS: Piperacillin/Tazobactam 2.25 GM in Sodium Chloride 0.9% 100 ML IVPB SCH ×4 (05:03→23:14)
[2020-08-09] MEDS: Potassium Chloride 40 MEQ in Sodium Chloride 0.9% 250 ML 250 ML IVPB SCH ×2 (05:18→09:34)
[2020-08-09] MEDS: cloNIDine 0.1 MG TAB PO SCH ×2 (09:02→19:52)
[2020-08-09] MEDS: predniSONE 5 MG TAB PO SCH (09:02)
[2020-08-09] MEDS: Enoxaparin Sodium 30 MG/0.3 ML SYRINGE SC SCH (09:02)
--- NOTE | 2020-08-09 09:21 | PRG ---
DATE OF SERVICE: 08/09/2020 SUBJECTIVE: Ms. Rico is an 85-year-old white female, followed up by the Renal Service for her acute kidney injury on top of her chronic renal failure. She had a superimposed prerenal azotemia. She has been given IV fluid and albumin infusion. She has also received p.r.n. Lasix due to the leg edema. On August 08, 2020, the patient underwent colonoscopy. Colonic ileus was noted secondary to [place]'s syndrome. In addition, finding of ulceration in the hepatic flexure consistent with ischemic colitis. Rectal decompression tube was left. This morning, she is complaining of some nausea and vomiting. No complaints of chest pain or shortness of breath. OBJECTIVE: VITAL SIGNS: Blood pressure is 133/69, heart rate 70, respiratory rate 16, temperature 98.2, O2 saturation 100%. GENERAL: The patient is awake, alert, obese, comfortable, not in distress. SKIN: Adequate turgor. HEENT: She has pinkish conjunctivae. Anicteric sclerae. No neck mass. No carotid bruits. No JVD. CHEST: No deformities. LUNGS: Clear breath sounds. No wheezing. No crackles. HEART: Normal sinus rhythm. No murmurs, no gallops, no rubs. ABDOMEN: Globular, soft, nontender. No masses. EXTREMITIES: Trace edema. No deformities. MEDICATIONS: Medications of August 09, 2020, were reviewed. LABORATORY DATA: Laboratories of August 09, 2020; white count 9, hemoglobin 11.3. Sodium 144, potassium 2.8, chloride 104, carbon dioxide 23, BUN 55, creatinine 2.24, magnesium 1.3, phosphorus 4.7, calcium is 7.2. ASSESSMENT AND PLAN: 1. Acute kidney injury on top of her chronic renal failure, stabilizing renal function. Creatinine slightly decreased from 2.38 to 2.24. Continue current IV fluid. No indication for any dialytic intervention. Continue supportive care. Possibility of a superimposed prerenal azotemia remains with this patient. 2. Nick's syndrome, colonic distention - GI following. Continue supportive care. The patient is on empiric IV antibiotics. We will recheck basic metabolic and CBC in a.m. Job ID: [id number]
--- NOTE | 2020-08-09 10:41 | PDOC.HOSPP ---
- Subjective Encounter Date: 08/09/20 Encounter Time: 10:20 Subjective: c/o vomiting, has bile in her vomitus mild abd dyscomfort is passing stool with her rectal tube - Objective Vital Signs & Weight: Vital Signs (12 hours) Temp Pulse Resp BP BP Pulse Ox 08/09/20 09:02 133/69 08/09/20 08:00 98.2 F 70 16 133/69 100 08/09/20 07:25 99 08/09/20 07:23 71 16 99 08/09/20 01:00 72 16 98 Weight Admit Weight 227 lb Weight 227 lb I&O: 08/08/20 08/09/20 08/10/20 06:59 06:59 06:59 Intake Total 2905 2620 Output Total 200 1195 Balance 2705 1425 Result Diagrams: 08/09/20 03:36 08/09/20 03:36 Additional Labs: Accuchecks 08/08/20 08/08/20 08/08/20 20:07 16:24 12:05 POC Glucose 116 H 137 H 96 Hospitalist ROS - Medication Medications: Active Medications Generic Name Dose Route Start Last Admin Trade Name Freq PRN Reason Stop Dose Admin Acetaminophen 650 mg 08/04/20 18:29 08/06/20 12:03 Tylenol PO 650 mg Q4H PRN Administration Headache/Fever/Mild Pain (1-3) Albuterol/Ipratropium 3 ml 08/04/20 18:30 08/09/20 07:23 Duoneb NEB 3 ml [id number] HAILEY Administration Atorvastatin Calcium 40 mg 08/04/20 21:00 08/08/20 20:02 Lipitor PO 40 mg HS HAILEY Administration Clonidine 0.1 mg 08/04/20 21:00 08/09/20 09:02 Catapres PO 0.1 mg BID HAILEY Administration Enoxaparin Sodium 30 mg 08/05/20 09:00 08/09/20 09:02 Lovenox SC 30 mg 0900 HAILEY Administration Potassium Chloride 20 meq/ 1,010 mls @ 75 mls/hr 08/05/20 07:30 08/08/20 23: 21 Lactated Ringer's IV 1,010 mls .[id number] HAILEY Administration Piperacillin Sod/Tazobactam 100 mls @ 200 mls/hr 08/06/20 12:00 08/09/20 05: 03 Sod 2.25 gm/ Sodium Chloride IVPB 100 mls Q6HR HAILEY Administration Potassium Chloride 40 meq/ 270 mls @ 67.5 mls/hr 08/09/20 05:15 08/09/20 09: 34 Sodium Chloride IVPB 08/09/20 13:14 270 mls Q4H HAILEY Administration Insulin Human Lispro 0 units 08/04/20 20:43 08/06/20 11:54 Humalog SC 2 units .MILD SLIDING SCALE PRN Administration Mild Correctional Scale Metoprolol Succinate 50 mg 08/05/20 09:00 08/09/20 09:02 Toprol Xl PO 50 mg DAILY HAILEY Administration Ondansetron HCl 4 mg 08/04/20 18:29 08/09/20 09:44 Zofran IVP 4 mg Q6H PRN Administration Nausea/Vomiting Prednisone 5 mg 08/09/20 08:00 08/09/20 09:02 Prednisone PO 08/10/20 08:01 5 mg QAM-WM HAILEY Administration Sodium Chloride 10 ml 08/04/20 21:00 08/09/20 09:03 Flush - Normal Saline IVF 10 ml Q12HR HAILEY Administration - Exam General Appearance: awake alert Eye: PERRL, anicteric sclera ENT: no oropharyngeal lesions, moist mucosa Neck: supple, no JVD Heart: RRR, no murmur, no gallops Respiratory: no wheezes, no rales Gastrointestinal: soft, normal bowel sounds, distended Extremities: no cyanosis, 1+ LE edema Neurological: cranial nerve grossly intact, no focal deficits Psychiatric: A&O x 3 Hosp A/P (1) Large bowel obstruction Code(s): K56.609 - UNSP INTESTNL OBST, UNSP TO PARTIAL VERSUS COMPLETE OBST Status: Acute (2) LAKEISHA (acute kidney injury) Code(s): N17.9 - ACUTE KIDNEY FAILURE, UNSPECIFIED Status: Acute (3) Anemia Code(s): D64.9 - ANEMIA, UNSPECIFIED Status: Chronic Qualifiers: Anemia type: unspecified type Qualified Code(s): D64.9 - Anemia, unspecified (4) Supratherapeutic INR Code(s): R79.1 - ABNORMAL COAGULATION PROFILE Status: Resolved (5) H/O cardiac pacemaker Code(s): Z95.0 - PRESENCE OF CARDIAC PACEMAKER Status: Chronic (6) HTN (hypertension) Code(s): I10 - ESSENTIAL (PRIMARY) HYPERTENSION Status: Chronic Qualifiers: (7) CLEMENCIA (obstructive sleep apnea) Code(s): G47.33 - OBSTRUCTIVE SLEEP APNEA (ADULT) (PEDIATRIC) Status: Chronic (8) Obesity (BMI 30-39.9) Code(s): E66.9 - OBESITY, UNSPECIFIED Status: Chronic (9) Paroxysmal atrial fibrillation Code(s): I48.0 - PAROXYSMAL ATRIAL FIBRILLATION Status: Chronic (10) Physical deconditioning Code(s): R53.81 - OTHER MALAISE Status: Chronic (11) Type 2 diabetes mellitus Status: Chronic Qualifiers: Diabetes mellitus [facility] insulin use: without keno terminal operator use Diabetes mellitus complication status: with kidney complications Diabetes mellitus complication detail: with chronic kidney disease Chronic kidney disease stage : stage 3 (moderate) Qualified Code(s): E11.22 - Type 2 diabetes mellitus with diabetic chronic kidney disease; N18.3 - Chronic kidney disease, stage 3 ( moderate) (1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 DISORDERS Status: Acute - Plan keep her npo, had sigmoidoscopy with biopsy 08/08, biopsy has not revealed malignancy still has bilious vomiting, will obtain kub xray. kcentra one dose due to persitent and increasing inr for safety with procedures planned was given on 08/05, vit k 10mg 08/06, inr is 1.6 has poor functional status empiric zosyn for uti and abd issue, blood cs are -ve, urine cs grew enterococcus resistant to quinolones. her abd is distended PT/OT to mobilize as tolerated prognosis guarded gentle iv fluids, pain control prn, rectal tube for decompression.
--- NOTE | 2020-08-09 10:53 | PDOC.HOSPP ---
- Subjective Encounter Date: 08/08/20 Encounter Time: 16:00 Subjective: had sigmoidoscopy with placement of rectal tube no nausea now feels better - Objective Vital Signs & Weight: Vital Signs (12 hours) Temp Pulse Resp BP BP Pulse Ox 08/09/20 09:02 133/69 08/09/20 08:00 98.2 F 70 16 133/69 100 08/09/20 07:25 99 08/09/20 07:23 71 16 99 08/09/20 01:00 72 16 98 Weight Admit Weight 227 lb Weight 227 lb I&O: 08/08/20 08/09/20 08/10/20 06:59 06:59 06:59 Intake Total 2905 2620 Output Total 200 1195 Balance 2705 1425 Result Diagrams: 08/09/20 03:36 08/09/20 03:36 Additional Labs: Accuchecks 08/08/20 08/08/20 08/08/20 20:07 16:24 12:05 POC Glucose 116 H 137 H 96 Hospitalist ROS - Medication Medications: Active Medications Generic Name Dose Route Start Last Admin Trade Name Freq PRN Reason Stop Dose Admin Acetaminophen 650 mg 08/04/20 18:29 08/06/20 12:03 Tylenol PO 650 mg Q4H PRN Administration Headache/Fever/Mild Pain (1-3) Albuterol/Ipratropium 3 ml 08/04/20 18:30 08/09/20 07:23 Duoneb NEB 3 ml [id number] HAILEY Administration Atorvastatin Calcium 40 mg 08/04/20 21:00 08/08/20 20:02 Lipitor PO 40 mg HS HAILEY Administration Clonidine 0.1 mg 08/04/20 21:00 08/09/20 09:02 Catapres PO 0.1 mg BID HAILEY Administration Enoxaparin Sodium 30 mg 08/05/20 09:00 08/09/20 09:02 Lovenox SC 30 mg 0900 HAILEY Administration Potassium Chloride 20 meq/ 1,010 mls @ 75 mls/hr 08/05/20 07:30 08/08/20 23: 21 Lactated Ringer's IV 1,010 mls .[id number] HAILEY Administration Piperacillin Sod/Tazobactam 100 mls @ 200 mls/hr 08/06/20 12:00 08/09/20 05: 03 Sod 2.25 gm/ Sodium Chloride IVPB 100 mls Q6HR HAILEY Administration Potassium Chloride 40 meq/ 270 mls @ 67.5 mls/hr 08/09/20 05:15 08/09/20 09: 34 Sodium Chloride IVPB 08/09/20 13:14 270 mls Q4H HAILEY Administration Insulin Human Lispro 0 units 08/04/20 20:43 08/06/20 11:54 Humalog SC 2 units .MILD SLIDING SCALE PRN Administration Mild Correctional Scale Metoprolol Succinate 50 mg 08/05/20 09:00 08/09/20 09:02 Toprol Xl PO 50 mg DAILY HAILEY Administration Ondansetron HCl 4 mg 08/04/20 18:29 08/09/20 09:44 Zofran IVP 4 mg Q6H PRN Administration Nausea/Vomiting Prednisone 5 mg 08/09/20 08:00 08/09/20 09:02 Prednisone PO 08/10/20 08:01 5 mg QAM-WM HAILEY Administration Sodium Chloride 10 ml 08/04/20 21:00 08/09/20 09:03 Flush - Normal Saline IVF 10 ml Q12HR HAILEY Administration - Exam General Appearance: ill appearing Eye: PERRL, anicteric sclera ENT: no oropharyngeal lesions, dry oral mucosa Neck: supple, no JVD Heart: RRR, no murmur Respiratory: no wheezes, no rales Gastrointestinal: soft, distended Extremities: no cyanosis, 2+ LE edema Neurological: cranial nerve grossly intact, no focal deficits Hosp A/P (1) Large bowel obstruction Code(s): K56.609 - UNSP INTESTNL OBST, UNSP TO PARTIAL VERSUS COMPLETE OBST Status: Acute (2) LA[place]ISHA (acute kidney injury) Code(s): N17.9 - ACUTE KIDNEY FAILURE, UNSPECIFIED Status: Acute (3) Anemia Code(s): D64.9 - ANEMIA, UNSPECIFIED Status: Chronic Qualifiers: Anemia type: unspecified type Qualified Code(s): D64.9 - Anemia, unspecified (4) Supratherapeutic INR Code(s): R79.1 - ABNORMAL COAGULATION PROFILE Status: Resolved (5) H/O cardiac pacemaker Code(s): Z95.0 - PRESENCE OF CARDIAC PACEMAKER Status: Chronic (6) HTN (hypertension) Code(s): I10 - ESSENTIAL (PRIMARY) HYPERTENSION Status: Chronic Qualifiers: (7) CLEMENCIA (obstructive sleep apnea) Code(s): G47.33 - OBSTRUCTIVE SLEEP APNEA (ADULT) (PEDIATRIC) Status: Chronic (8) Obesity (BMI 30-39.9) Code(s): E66.9 - OBESITY, UNSPECIFIED Status: Chronic (9) Paroxysmal atrial fibrillation Code(s): I48.0 - PAROXYSMAL ATRIAL FIBRILLATION Status: Chronic (10) Physical deconditioning Code(s): R53.81 - OTHER MALAISE Status: Chronic (11) Type 2 diabetes mellitus Status: Chronic Qualifiers: Diabetes mellitus senior living insulin use: without senior living use Diabetes mellitus complication status: with kidney complications Diabetes mellitus complication detail: with chronic kidney disease Chronic kidney disease stage : stage 3 (moderate) Qualified Code(s): E11.22 - Type 2 diabetes mellitus with diabetic chronic kidney disease; N18.3 - Chronic kidney disease, stage 3 ( moderate) (1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 DISORDERS Status: Acute - Plan keep her npo, had sigmoidoscopy with biopsy 08/08, await biopsy results kcentra one dose due to persitent and increasing inr for safety with procedures planned was given on 08/05, vit k 10mg 08/06, inr is 1.6 has poor functional status empiric zosyn for uti and abd issue, blood cs are -ve, urine cs grew enterococcus resistant to quinolones. her abd is distended PT/OT to mobilize as tolerated prognosis guarded gentle iv fluids, pain control prn, rectal tube for decompression.
[2020-08-09] MEDS ORDERED: Promethazine HCl 25 MG in Sodium Chloride 0.9% 50 ML IVPB SCH (11:30)
[2020-08-09 18:19] LABS: Potassium 4.1 mmol/L (3.5-5.1)
[2020-08-09] MEDS: Atorvastatin Calcium 40 MG TAB PO SCH (19:52)
[2020-08-09] MEDS: Potassium Chloride 20 MEQ in Lactated Ringer's 1,000 ML IV SCH (19:55)
--- NOTE | 2020-08-09 20:28 | PRG ---
DATE OF SERVICE: 08/09/2020 SUBJECTIVE: Ms. Rico is throwing up all day. The nurses called me a few hours ago. We placed an NG tube and she got 2 L out. Nurses note she is having copious bowel movements around the rectal tube that is in place. Ms. Rico notes her stomach feels better. She is rolling [id number] in bed, but has not gotten out of bed for a while. PHYSICAL EXAMINATION: VITAL SIGNS: Temperature is 98.2, pulse 75, blood pressure 133/69. She is voiding. In's and out's this morning were 2620 in and 1195 out. ABDOMEN: Soft. There are no bowel sounds. There is no rebound. There is no guarding. It is nontender. LUNGS: Clear. HEART: Regular rate and rhythm without clicks or murmurs. LABORATORY DATA: White count is 9, down from 15 on admission; hemoglobin 11.3; platelet count 263, down from 416 on admission. INR is 1.4. Sodium 144; potassium was 2.8, replaced this, it is now 4.1; chloride 104. BUN and creatinine 55 and 2.24. BUN is about the same as it was on admission, creatinine is higher, but is down from 2.38 on the 9th. Liver function tests were normal on 6th on admission. Lipase was normal as well. ASSESSMENT: 1. Ileus. She had 2 L of fluid in her stomach and she was vomiting all day despite Phenergan and Zofran. NG tube was placed. 2. Copious stools now with decompression of the colon. She had ischemic colitis in the right side. 3. She reports that she was having some issues of bradycardia when she came in and maybe she In any event, there are no overt signs of ischemic necrosis. She is not acidotic and white count is coming down. She has no pain. 4. Urinary tract infection with enterococcus, on Zosyn. RECOMMENDATIONS: 1. Continue NG tube. 2. I suspect her rectal tube should move out, followup soon. 3. Mobilization. Patient needs to be getting up outside of the bed and out of bed with PT. If her rectal tube falls off, that is fine. 4. Repeat labs tomorrow morning. Keep magnesium and phosphorus replaced. 5. Would avoid Zofran as this often causes a colonic ileus. Could consider low-dose Reglan if needed. We will wait for lab results tomorrow. Job ID: [id number]
[2020-08-10] MEDS: Piperacillin/Tazobactam 2.25 GM in Sodium Chloride 0.9% 100 ML IVPB SCH ×3 (06:20→17:56)
[2020-08-10 06:35] LABS: #Eosinphils 0.1 thou/uL (0.0-0.7); #Lymphocytes 0.7 thou/uL (1.20-3.40); #Neutrophils 6.5 thou/uL (1.40-6.50); %Basophils 0.1 % (0.0-1.0); %Eosinophils 0.7 % (0.0-10.0); %Lymphocytes 8.7 % (21.0-51.0); %Monocytes 11.7 % (0.0-10.0); %Neutrophils 78.9 % (42.0-75.0); Hemoglobin 12.2 g/dL (12.0-16.0); Mean Corpuscular HGB CONC 31.2 g/dL (32.0-36.0); Mean Corpuscular Hemoglobin 26.5 pg (27.0-31.0); Mean Corpuscular Volume 84.8 fL (78.0-98.0); Mean Platelet Volume 9.4 fL (7.4-10.4); Platelet Count 253 thou/uL (130-400); RBC Distribution Width 15.5 % (11.5-14.5); White Blood Cell (WBC) Count 8.2 thou/uL (4.8-10.8)
[2020-08-10 06:41] LABS: INR-International Normal Ratio 1.4; PTT 31.8 sec (22.9-36.1); Prothrombin Time 16.6 sec (12.0-14.7)
[2020-08-10 06:52] LABS: Anion Gap 19 mmol/L (10-20); BUN (Urea Nitrogen) 47 mg/dL (9.8-20.1); Calc. Creatinine Clearance 34 mL/min (70-130); Calcium 7.6 mg/dL (7.8-10.44); Carbon Dioxide 26 mmol/L (23-31); Chloride 106 mmol/L (98-107); Estimated GFR-MDRD 24; Glucose 81 mg/dL (83-110); Potassium 3.1 mmol/L (3.5-5.1); Sodium 148 mmol/L (136-145)
--- NOTE | 2020-08-10 07:06 | PRG ---
DATE OF SERVICE: 08/10/2020 SUBJECTIVE: Ms. Rico is an 85-year-old white female, followed up by the Renal Service for her acute kidney injury on top of her chronic renal failure. She has a presumed hemodynamically-mediated renal dysfunction. Renal function is holding steady. However, she was noted to be persistently having nausea and vomiting. An NG tube was placed and this gave her symptomatic relief. She has [place] syndrome and being followed by GI. She currently has a rectal tube and an NG tube. No complaints of chest pain or shortness of breath. OBJECTIVE: VITAL SIGNS: Blood pressure is noted 137/72 with a heart rate of 72, respiratory rate 20, and O2 saturation 98%. GENERAL: Awake, alert, supine, and comfortable, not in distress. SKIN: Adequate turgor. HEENT: She has a pinkish conjunctivae. Anicteric sclerae. No neck mass. No carotid bruits. No JVD. CHEST: No deformities. LUNGS: Clear breath sounds. No wheezing. No crackles. HEART: Normal sinus rhythm. No murmur. No gallops. No rubs. ABDOMEN: Globular, soft, and nontender. No masses. EXTREMITIES: Trace edema. MEDICATIONS: Medications of August 10, 2020, were reviewed. LABORATORY DATA: Laboratories of August 10, 2020; white count 8.2 and hemoglobin 12.2. August 09, 2020; potassium was 4.1, BUN 55, and creatinine 2.24. August 10, 2020, basic met pending. ASSESSMENT AND PLAN: 1. Acute kidney injury on top of her chronic renal failure, improving renal function. Continue supportive care. Currently, on maintenance IV fluid. There is no indication for any dialytic intervention with this patient. We are awaiting for repeat basic metabolic this morning. 2. Nick syndrome-currently on a rectal tube and NG tube. The NG tube has given the patient symptomatic relief. Nausea and vomiting are much improved. 3. We will recheck a basic metabolic profile in a.m. Job ID: [id number]
[2020-08-10] MEDS ORDERED: Potassium Chloride 20 MEQ in Premix Bag 1 BAG IVPB SCH (07:30)
[2020-08-10] MEDS ORDERED: Magnesium 2 GM/50 ML 2 GM in Premix Bag 1 BAG IVPB SCH (07:30)
[2020-08-10] MEDS: cloNIDine 0.1 MG TAB PO SCH ×3 (07:38→19:47)
[2020-08-10] MEDS: predniSONE 5 MG TAB PO SCH (07:38)
[2020-08-10] MEDS: Enoxaparin Sodium 30 MG/0.3 ML SYRINGE SC SCH (08:06)
[2020-08-10] MEDS: Potassium Chloride 20 MEQ in Lactated Ringer's 1,000 ML IV SCH (08:06)
[2020-08-10] MEDS ORDERED: predniSONE 5 MG TAB PO SCH (11:15)
--- NOTE | 2020-08-10 11:58 | PDOC.HOSPP ---
- Subjective Encounter Date: 08/10/20 Encounter Time: 10:00 Subjective: her ng tube is clamped 2 hrs back, is tolerating jello and liq no abd pain or nausea - Objective Vital Signs & Weight: Vital Signs (12 hours) Temp Pulse Resp BP BP Pulse Ox 08/10/20 11:25 70 191/88 H 191/88 H 08/10/20 10:40 72 12 08/10/20 08:05 97.0 F L 69 16 145/78 H 93 L 08/10/20 08:00 93 L 08/10/20 06:15 72 20 08/10/20 03:37 98 Weight Admit Weight 227 lb Weight 227 lb I&O: 08/09/20 08/10/20 08/11/20 06:59 06:59 06:59 Intake Total 2620 1130 Output Total 1195 6450 Balance 1609 -8565 Result Diagrams: 08/10/20 06:22 08/10/20 06:22 Additional Labs: Accuchecks 08/10/20 08/10/20 08/09/20 11:52 06:25 20:47 POC Glucose 77 80 90 08/09/20 16:19 POC Glucose 92 Hospitalist ROS - Medication Medications: Active Medications Generic Name Dose Route Start Last Admin Trade Name Freq PRN Reason Stop Dose Admin Acetaminophen 650 mg 08/04/20 18:29 08/06/20 12:03 Tylenol PO 650 mg Q4H PRN Administration Headache/Fever/Mild Pain (1-3) Albuterol/Ipratropium 3 ml 08/04/20 18:30 08/10/20 10:40 Duoneb NEB 3 ml [id number] HAILEY Administration Atorvastatin Calcium 40 mg 08/04/20 21:00 08/09/20 19:52 Lipitor PO Not Given HS HAILEY Clonidine 0.1 mg 08/04/20 21:00 08/10/20 11:25 Catapres PO 0.1 mg BID HAILEY Administration Enoxaparin Sodium 30 mg 08/05/20 09:00 08/10/20 08:06 Lovenox SC 30 mg 0900 HAILEY Administration Potassium Chloride 20 meq/ 1,010 mls @ 75 mls/hr 08/05/20 07:30 08/10/20 08: 06 Lactated Ringer's IV 1,010 mls .[id number] HAILEY Administration Piperacillin Sod/Tazobactam 100 mls @ 200 mls/hr 08/06/20 12:00 08/10/20 11: 23 Sod 2.25 gm/ Sodium Chloride IVPB 100 mls Q6HR HAILEY Administration Insulin Human Lispro 0 units 08/04/20 20:43 08/06/20 11:54 Humalog SC 2 units .MILD SLIDING SCALE PRN Administration Mild Correctional Scale Metoprolol Succinate 50 mg 08/05/20 09:00 08/10/20 11:25 Toprol Xl PO 50 mg DAILY HAILEY Administration Prednisone 5 mg 08/10/20 11:15 08/10/20 11:25 Prednisone PO 08/10/20 14:00 5 mg NOW HAILEY Administration Sodium Chloride 10 ml 08/04/20 21:00 08/10/20 08:07 Flush - Normal Saline IVF Not Given Q12HR HAILEY - Exam General Appearance: awake alert, ill appearing Eye: anicteric sclera ENT: no oropharyngeal lesions, moist mucosa Neck: supple, no JVD Heart: RRR Respiratory: no wheezes, no rales Gastrointestinal: soft, non-distended, normal bowel sounds, no guarding, no rigidity Extremities: no cyanosis, 2+ LE edema Neurological: cranial nerve grossly intact, no focal deficits Psychiatric: A&O x 3 Hosp A/P (1) Large bowel obstruction Code(s): K56.609 - UNSP INTESTNL OBST, UNSP TO PARTIAL VERSUS COMPLETE OBST Status: Acute (2) LAKEISHA (acute kidney injury) Code(s): N17.9 - ACUTE KIDNEY FAILURE, UNSPECIFIED Status: Acute (3) Anemia Code(s): D64.9 - ANEMIA, UNSPECIFIED Status: Chronic Qualifiers: Anemia type: unspecified type Qualified Code(s): D64.9 - Anemia, unspecified (4) Supratherapeutic INR Code(s): R79.1 - ABNORMAL COAGULATION PROFILE Status: Resolved (5) H/O cardiac pacemaker Code(s): Z95.0 - PRESENCE OF CARDIAC PACEMAKER Status: Chronic (6) HTN (hypertension) Code(s): I10 - ESSENTIAL (PRIMARY) HYPERTENSION Status: Chronic Qualifiers: (7) CLEMENCIA (obstructive sleep apnea) Code(s): G47.33 - OBSTRUCTIVE SLEEP APNEA (ADULT) (PEDIATRIC) Status: Chronic (8) Obesity (BMI 30-39.9) Code(s): E66.9 - OBESITY, UNSPECIFIED Status: Chronic (9) Paroxysmal atrial fibrillation Code(s): I48.0 - PAROXYSMAL ATRIAL FIBRILLATION Status: Chronic (10) Physical deconditioning Code(s): R53.81 - OTHER MALAISE Status: Chronic (11) Type 2 diabetes mellitus Status: Chronic Qualifiers: Diabetes mellitus terminal supervisor insulin use: without [facility] use Diabetes mellitus complication status: with kidney complications Diabetes mellitus complication detail: with chronic kidney disease Chronic kidney disease stage : stage 3 (moderate) Qualified Code(s): E11.22 - Type 2 diabetes mellitus with diabetic chronic kidney disease; N18.3 - Chronic kidney disease, stage 3 ( moderate) (1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 DISORDERS Status: Acute - Plan NG tube is clamped this am, she is tolerating liq diet so far. had sigmoidoscopy with biopsy 08/08, biopsy does not show malignancy, had findings of isch colitis kcentra one dose due to persitent and increasing inr for safety with procedures planned was given on 08/05, vit k 10mg 08/06, inr is 1.6 has poor functional status, edema ++ empiric zosyn for uti and abd issue, blood cs are -ve, urine cs grew enterococcus resistant to quinolones. her abd is less distended today PT/OT to mobilize as tolerated prognosis guarded gentle iv fluids, pain control prn, rectal tube for decompression may come out as stool is coming around it.
--- NOTE | 2020-08-10 14:31 | PRG ---
DATE OF SERVICE: 08/10/2020 SUBJECTIVE: Ms. Rico is feeling much better after NG tube decompression. Last night, she had 2 L out. Yesterday, once we put the tube in continued to have stool output. She is not getting up much. She is without complaints. PHYSICAL EXAMINATION: VITAL SIGNS: Temperature is 97, pulse ABDOMEN: Soft, nontender. Bowel sounds are scant but present. EXTREMITIES: Reveal 3+ edema. LABORATORY DATA: White count 8.2, hemoglobin 12.2, platelet count 253. Sodium 148, up from 144 yesterday. Potassium 3.1, BUN and creatinine are 47 and 1.98. 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 This probably is exacerbated by difficulties with her heart rate, which has been improved. 2. Vomiting yesterday, suspect related to gastroparesis, again probably related to the entire process. She has responded to NG tube decompression. We stopped the Zofran as often this will cause some colonic inertia. I have not added a Reglan at this time as increasing the colonic motility with the ischemia present may not be the best idea and she is not vomiting at this time. 3. Edema. 4. Mild hypokalemia. 5. Hypernatremia. RECOMMENDATIONS: 1. We will start clear liquid diet, clamp NG tube. We will defer to Nephrology fluid management at this time. 2. We will discontinue the rectal tube, ask the nurse to get physical therapy, start getting the patient up and around, this will aid in the resolution of her Thurman's and ileus. Job ID: [id number]
[2020-08-10] MEDS: Atorvastatin Calcium 40 MG TAB PO SCH (19:47)
[2020-08-11] MEDS: Piperacillin/Tazobactam 2.25 GM in Sodium Chloride 0.9% 100 ML IVPB SCH ×5 (01:48→23:32)
[2020-08-11] MEDS: Potassium Chloride 20 MEQ in Lactated Ringer's 1,000 ML IV SCH ×2 (02:04→11:42)
[2020-08-11 03:47] LABS: Anion Gap 17 mmol/L (10-20); BUN (Urea Nitrogen) 45 mg/dL (9.8-20.1); Calc. Creatinine Clearance 36 mL/min (70-130); Calcium 8.1 mg/dL (7.8-10.44); Carbon Dioxide 31 mmol/L (23-31); Chloride 106 mmol/L (98-107); Estimated GFR-MDRD 26; Glucose 133 mg/dL (83-110); Sodium 151 mmol/L (136-145)
[2020-08-11 03:52] LABS: Potassium 2.7 mmol/L (3.5-5.1)
[2020-08-11] MEDS ORDERED: Potassium Chloride 10 MEQ TAB PO SCH (05:00)
[2020-08-11] MEDS ORDERED: Potassium Chloride 20 MEQ TAB PO SCH (08:00)
[2020-08-11] MEDS: cloNIDine 0.1 MG TAB PO SCH ×2 (08:37→19:18)
[2020-08-11] MEDS: Enoxaparin Sodium 30 MG/0.3 ML SYRINGE SC SCH (08:38)
--- NOTE | 2020-08-11 11:11 | PDOC.HOSPP ---
- Subjective Encounter Date: 08/11/20 Encounter Time: 10:45 Subjective: awake, no sob no nausea, had bm last evening - Objective Vital Signs & Weight: Vital Signs (12 hours) Temp Pulse Resp BP Pulse Ox 08/11/20 10:05 76 16 08/11/20 08:15 97.9 F 74 16 174/74 H 97 08/11/20 08:00 97 08/11/20 06:15 64 12 08/11/20 02:51 96 08/11/20 02:49 93 L 08/10/20 23:20 94 L Weight Admit Weight 227 lb Weight 227 lb I&O: 08/10/20 08/11/20 08/12/20 06:59 06:59 06:59 Intake Total 1130 840 Output Total 6450 750 Balance -5320 90 Result Diagrams: 08/10/20 06:22 08/11/20 03:19 Additional Labs: Accuchecks 08/10/20 08/10/20 08/10/20 20:42 16:08 11:52 POC Glucose 129 H 101 77 Hospitalist ROS - Medication Medications: Active Medications Generic Name Dose Route Start Last Admin Trade Name Freq PRN Reason Stop Dose Admin Acetaminophen 650 mg 08/04/20 18:29 08/06/20 12:03 Tylenol PO 650 mg Q4H PRN Administration Headache/Fever/Mild Pain (1-3) Albuterol/Ipratropium 3 ml 08/04/20 18:30 08/11/20 10:05 Duoneb NEB 3 ml [id number] HAILEY Administration Atorvastatin Calcium 40 mg 08/04/20 21:00 08/10/20 19:47 Lipitor PO 40 mg HS HAILEY Administration Clonidine 0.1 mg 08/04/20 21:00 08/11/20 08:37 Catapres PO 0.1 mg BID HAILEY Administration Enoxaparin Sodium 30 mg 08/05/20 09:00 08/11/20 08:38 Lovenox SC 30 mg 0900 HAILEY Administration Potassium Chloride 20 meq/ 1,010 mls @ 75 mls/hr 08/05/20 07:30 08/11/20 02: 04 Lactated Ringer's IV Not Given .[id number] HAILEY Piperacillin Sod/Tazobactam 100 mls @ 200 mls/hr 08/06/20 12:00 08/11/20 04: 17 Sod 2.25 gm/ Sodium Chloride IVPB Not Given Q6HR [facility] Insulin Human Lispro 0 units 08/04/20 20:43 08/06/20 11:54 Humalog SC 2 units .MILD SLIDING SCALE PRN Administration Mild Correctional Scale Metoprolol Succinate 50 mg 08/05/20 09:00 08/11/20 08:37 Toprol Xl PO 50 mg DAILY HAILEY Administration Sodium Chloride 10 ml 08/04/20 21:00 08/11/20 08:38 Flush - Normal Saline IVF Not Given Q12HR HAILEY - Exam General Appearance: awake alert Eye: PERRL, anicteric sclera ENT: no oropharyngeal lesions, moist mucosa Neck: supple, no JVD Heart: RRR, no murmur Respiratory: no wheezes, no rales Gastrointestinal: soft, non-tender, normal bowel sounds Extremities: no cyanosis, 2+ LE edema Neurological: cranial nerve grossly intact, no focal deficits Psychiatric: A&O x 3 Hosp A/P (1) Large bowel obstruction Code(s): K56.609 - UNSP INTESTNL OBST, UNSP TO PARTIAL VERSUS COMPLETE OBST Status: Acute (2) LAKEISHA (acute kidney injury) Code(s): N17.9 - ACUTE KIDNEY FAILURE, UNSPECIFIED Status: Acute (3) Anemia Code(s): D64.9 - ANEMIA, UNSPECIFIED Status: Chronic Qualifiers: Anemia type: unspecified type Qualified Code(s): D64.9 - Anemia, unspecified (4) Supratherapeutic INR Code(s): R79.1 - ABNORMAL COAGULATION PROFILE Status: Resolved (5) H/O cardiac pacemaker Code(s): Z95.0 - PRESENCE OF CARDIAC PACEMAKER Status: Chronic (6) HTN (hypertension) Code(s): I10 - ESSENTIAL (PRIMARY) HYPERTENSION Status: Chronic Qualifiers: (7) CLEM[place]IA (obstructive sleep apnea) Code(s): G47.33 - OBSTRUCTIVE SLEEP APNEA (ADULT) (PEDIATRIC) Status: Chronic (8) Obesity (BMI 30-39.9) Code(s): E66.9 - OBESITY, UNSPECIFIED Status: Chronic (9) Paroxysmal atrial fibrillation Code(s): I48.0 - PAROXYSMAL ATRIAL FIBRILLATION Status: Chronic (10) Physical deconditioning Code(s): R53.81 - OTHER MALAISE Status: Chronic (11) Type 2 diabetes mellitus Status: Chronic Qualifiers: Diabetes mellitus watermaster insulin use: without watermaster use Diabetes mellitus complication status: with kidney complications Diabetes mellitus complication detail: with chronic kidney disease Chronic kidney disease stage : stage 3 (moderate) Qualified Code(s): E11.22 - Type 2 diabetes mellitus with diabetic chronic kidney disease; N18.3 - Chronic kidney disease, stage 3 ( moderate) (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 had sigmoidoscopy with biopsy 08/08, biopsy does not show malignancy, had findings of isch colitis kcentra one dose due to persitent and increasing inr for safety with procedures planned was given on 08/05, vit k 10mg 08/06, inr is 1.6 has poor functional status, edema ++ with low albumin and third spacing. empiric zosyn for uti and abd issue, blood cs are -ve, urine cs grew enterococcus resistant to quinolones. PT/OT to mobilize as tolerated prognosis guarded gentle iv fluids, pain control prn, rectal tube removed 08/10. Janusz santos for LE edema, counselled to mobilize when PT comes around.
--- NOTE | 2020-08-11 15:33 | RAD ---
AP CHEST: History: Central line placement. Comparison: 07-19-2020 FINDINGS: Cardiomegaly. Mild vascular prominence without congestion. A central line via the right subclavian ov erlies the SVC. The pacemaker leads are unchanged. There is evidence of small bilateral effusion juan lar to the prior study. No pneumothorax or acute lung process identified. IMPRESSION: As above. POS: AGW
[2020-08-11] MEDS ORDERED: Furosemide 40 MG/4 ML VIAL SLOW IVP SCH (19:15)
[2020-08-11] MEDS: Potassium Chloride 40 MEQ in Sodium Chloride 0.45% 1,000 ML IV SCH (19:16)
[2020-08-11] MEDS: Atorvastatin Calcium 40 MG TAB PO SCH (19:18)
[2020-08-12] MEDS: Potassium Chloride 40 MEQ in Sodium Chloride 0.45% 1,000 ML IV SCH ×2 (06:01→18:12)
[2020-08-12] MEDS: Piperacillin/Tazobactam 2.25 GM in Sodium Chloride 0.9% 100 ML IVPB SCH ×4 (06:01→23:26)
[2020-08-12 06:18] LABS: #Eosinphils 0.1 thou/uL (0.0-0.7); #Lymphocytes 0.7 thou/uL (1.20-3.40); #Monocytes 0.8 thou/uL (0.11-0.59); #Neutrophils 4.4 thou/uL (1.40-6.50); %Eosinophils 1.6 % (0.0-10.0); %Lymphocytes 12.2 % (21.0-51.0); %Neutrophils 73.2 % (42.0-75.0); Hemoglobin 10.4 g/dL (12.0-16.0); Mean Corpuscular HGB CONC 30.2 g/dL (32.0-36.0); Mean Corpuscular Hemoglobin 25.7 pg (27.0-31.0); Mean Corpuscular Volume 85.3 fL (78.0-98.0); Mean Platelet Volume 9.1 fL (7.4-10.4); Platelet Count 203 thou/uL (130-400); RBC Distribution Width 15.5 % (11.5-14.5); Red Blood Cell (RBC) Count 4.05 mill/uL (4.20-5.40); White Blood Cell (WBC) Count 6.1 thou/uL (4.8-10.8)
[2020-08-12 06:41] LABS: ALT (SGPT) 7 U/L (8-55); AST (SGOT) 11 U/L (5-34); Albumin 2.8 g/dL (3.4-4.8); Alkaline Phosphatase 55 U/L (40-110); Anion Gap 12 mmol/L (10-20); BUN (Urea Nitrogen) 41 mg/dL (9.8-20.1); Bilirubin, Direct 0.3 mg/dL (0.1-0.3); Bilirubin, Total 0.5 mg/dL (0.2-1.2); Calc. Creatinine Clearance 39 mL/min (70-130); Calcium 7.7 mg/dL (7.8-10.44); Carbon Dioxide 28 mmol/L (23-31); Chloride 109 mmol/L (98-107); Estimated GFR-MDRD 28; Glucose 119 mg/dL (83-110); Potassium 4.5 mmol/L (3.5-5.1); Protein, Total 4.9 g/dL (6.0-8.3); Sodium 144 mmol/L (136-145)
[2020-08-12] MEDS: Enoxaparin Sodium 30 MG/0.3 ML SYRINGE SC SCH (08:04)
[2020-08-12] MEDS: cloNIDine 0.1 MG TAB PO SCH ×2 (08:05→20:17)
--- NOTE | 2020-08-12 09:43 | PRG ---
DATE OF SERVICE: 08/12/2020 SUBJECTIVE: Ms. Rico is an 85-year-old white female, followed up by the Renal Service for her acute kidney injury that is hemodynamically-mediated renal dysfunction on top of her chronic renal failure. She also was having some abdominal pain secondary to a presumptive [place] syndrome. She was challenge by her GI and started being able to take p.o. and tolerating said diet. No complaints of chest pain or shortness of breath, still with some slight leg edema. OBJECTIVE: VITAL SIGNS: Blood pressure 97/57, heart rate 68, respiratory rate 16, temperature 97.9, and O2 saturation 98%. GENERAL: Awake, alert, supine, comfortable, obese, not in distress. SKIN: Adequate turgor. HEENT: Pinkish conjunctivae. Anicteric sclerae. NECK: No neck mass. No carotid bruits. No JVD. CHEST: No deformities. LUNGS: Decreased breath sounds. HEART: Normal sinus rhythm. No murmur. No gallops. No rubs. ABDOMEN: Globular. Soft and nontender. No masses. EXTREMITIES: Positive for edema. MEDICATIONS: Medications of August 12, 2020, was reviewed. DIAGNOSTIC STUDIES: LABORATORY RESULTS: Laboratories of August 12, 2020; white count 6.1 and hemoglobin 10.4. Sodium 144, potassium 4.5, chloride 109, carbon dioxide 28, BUN 41, creatinine 1.71, calcium 7.7, AST 11, ALT 7, and albumin 2.8. ASSESSMENT AND PLAN: 1. Acute kidney injury on top of her chronic renal failure. Slowly improving renal function. Creatinine noted 1.7. No indication for any dialytic intervention. 2. Bilateral leg edema-supportive care p.r.n. Lasix. 3. Hypernatremia/hypokalemia, much improved, initiation of half-normal saline. She is also on p.r.n. potassium replacement. 4. Recheck basic metabolic panel and CBC in a.m. Job ID: [id number]
--- NOTE | 2020-08-12 11:52 | PDOC.BPN ---
- Brief Progress Note Encounter Date: 08/12/20 Encounter Time: 11:42 Case discussed with gastroenterology today. Over the weekend, the patient underwent endoscopic decompression where an ulceration was noted in the hepatic flexure likely due to ischemia. Currently, it appears that the patient is doing better and having bowel movements. Her NG tube has been clamped and she seems to be tolerating that. At this point, she seems to be responding to nonoperative management for intestinal ischemia and is demonstrating improvement of her pseudo-obstructive symptoms. We will continue to follow peripherally through gastroenterology. Please call for any further questions.
--- NOTE | 2020-08-12 12:06 | PRG ---
DATE OF SERVICE: 08/12/2020 SUBJECTIVE: Ms. Rico is eating. She has had no nausea or vomiting. She has had some bowel movements yesterday. She complains of swelling and edema. OBJECTIVE: VITAL SIGNS: Blood pressure 97/57, pulse 68, temperature 97. ABDOMEN: Slightly protuberant, soft, nontender. Bowel sounds are positive. EXTREMITIES: Reveal 2+ to 3+ edema in the legs bilaterally and dependent portion of her sacrum. LABORATORY DATA: White count 6.1, hemoglobin is 10.4, platelet count 203. Sodium 144, potassium 4.5, BUN and creatinine are 41 and 1.71, bilirubin is 0.5, AST and ALT are 11 and 7, protein 4.9, albumin 3.8. ASSESSMENT: 1. Ileus, resolved. 2. Anastomosis in her rectosigmoid colon looks healthy and benign with no stricturing. 3. Mild ischemic colitis in the right side, probably bradycardia when she was admitted. No evidence of malignancy. 4. Urinary tract infection. 5. Fluid overload. RECOMMENDATIONS: 1. At this time, I think her ileus has resolved. We will sign off from a GI standpoint. Mobilization and physical therapy she probably needs to get a rehab. We will give her MiraLAX on a p.r.n. basis and Zofran only on a p.r.n. basis as it can be constipating. We would avoid fibers as it can cause increased gaseous distension. 2. I suspect that her mild ischemia seen in her right colon is going to improve on its own if she has had improvement in physical exam and leukocytosis. Again, from a GI standpoint, she no longer needs antibiotics. We will defer to paint grinder for treatment of other infectious issues. We will sign off for now. If I can be of any further assistance in her care, please do not hesitate to contact me. Job ID: [id number]
--- NOTE | 2020-08-12 14:15 | PRG ---
DATE OF SERVICE: 08/11/2020 SUBJECTIVE: Ms. Rico has not thrown up. Her NG tube has remained clamped. She has not vomited. She has tolerated liquids. She has had quite a bit of flatus, but no bowel movement. Urine output went down, as Dr. Mccloud changed her fluid, increased to 100 mL now and gave her some Lasix. She is without complaints presently. MEDICATIONS: 1. Tylenol. 2. Proventil. 3. DuoNeb. 4. Atorvastatin 40 daily. 5. Lovenox 30 subcu daily. 6. Lasix 40 once. 7. Insulin sliding scale. 8. Metoprolol 50 mg daily. 9. Zosyn. PHYSICAL EXAMINATION: VITAL SIGNS: Temperature 97.9, she has been afebrile for 48 hours. Pulse 61, blood pressure 116/61. Urine output was 350 yesterday, 150 so far today. Rectal tube is out. NG tube is clamped. ABDOMEN: Soft, slightly protuberant, tympanitic. EXTREMITIES: Reveal edema, 2+. LABORATORY DATA: White count down to 8.2, hemoglobin 12.2, platelet count 253. Sodium 151, potassium 2.7, chloride 106. BUN and creatinine are 45 and 1.87, slightly down from 2.24 on the 11th. Blood culture has been negative. Urine showed E coli. Biopsy from hepatic flexure of the colon just showed an ulcer with no dysplasia or malignancy. I suspect this is ischemic. ASSESSMENT: 1. [place] syndrome, resolved. 2. History of rectal cancer, no evidence of recurrence. Anastomosis clear. 3. Ulcer in the right colon, consistent with ischemia, probably associated with the Nick's, improving. 4. Escherichia coli urinary tract infection. 5. Hypernatremia. NG tube has had minimal output. Vomiting has resolved. We will start p.o. intake. IV fluids have been changed by Nephrology. 6. Oliguria, but improving BUN and creatinine. Some third spacing of fluid. She had some Lasix today. 7. Hypokalemia. Potassium is being replaced. RECOMMENDATIONS: 1. It may be reasonable to consider discontinuing her Zosyn as she has no overt infection in the colon and the antibiotics for ischemic colitis were equivocal, may be impacting her renal function. It seems that she had enough antibiotic for her urinary tract infection. If hospitalist or Nephrology feels otherwise, can continue the antibiotic, but otherwise, can consider stopping that. 2. We will pull the NG tube and start full liquid diet. Encourage p.o. intake. If she does not respond to the Lasix, it may be reasonable to give her albumin and Lasix at the same time. Job ID: [id number]
--- NOTE | 2020-08-12 14:58 | PRG ---
DATE OF SERVICE: 08/11/2020 SUBJECTIVE: Ms. Rico is an 85-year-old white female, seen by the Renal Service for acute kidney injury on top of her chronic renal failure. She had a superimposed prerenal azotemia. Empiric volume repletion has been given to this patient. In addition, the patient was evaluated by GI due to possible [place] syndrome with ulceration of the right colon consistent with ischemia. No new complaints today. No chest pain or shortness of breath. She does complain of bilateral leg swelling as well as upper extremity swelling. No complaints of chest pain or shortness of breath. OBJECTIVE: VITAL SIGNS: Blood pressure was noted at 116/61, heart rate 61, respiratory rate 12, O2 sat 97%, and temperature 97.9. GENERAL: The patient is awake, alert, comfortable, not in overt distress. SKIN: Adequate turgor. HEENT: She has pinkish conjunctivae. Anicteric sclerae. NECK: No neck mass. No carotid bruits. No JVD. CHEST: No deformities. LUNGS: Decreased breath sounds. HEART: Normal sinus rhythm. No murmurs, gallops or rubs. ABDOMEN: Globular, soft, and nontender. No masses. EXTREMITIES: Positive for edema. MEDICATIONS: Medications of August 11, 2020 - reviewed. LABORATORY DATA: August 11, 2020, sodium 151, potassium 2.7, chloride 106, carbon dioxide 31, BUN 45, creatinine 1.87, and calcium 8.1. ASSESSMENT AND PLAN: 1. Acute kidney injury/chronic renal failure. Slowly improving renal function. Creatinine noted at 1.87. However, due to her decreased urine output as well as extremity swelling, we will give a one time dose of Lasix 40 mg IV. No indication for any acute dialytic intervention. 2. Hypernatremia. Change IV fluid from lactated Ringer's to 1/2 normal saline at 100 mL/h. 3. Hypokalemia. P.r.n. potassium replacement. Continue supportive care. 4. Nick syndrome - GI following. Job ID: [id number] [facility]
--- NOTE | 2020-08-12 15:25 | PDOC.HOSPP ---
- Subjective Encounter Date: 08/12/20 Subjective: Patient reports feeling better. She is tolerating diet, having bowel movements. Denies chest pain, shortness of breath. - Objective Vital Signs & Weight: Vital Signs (12 hours) Temp Pulse Resp BP BP Pulse Ox 08/12/20 11:09 70 16 08/12/20 08:17 68 14 08/12/20 08:05 97/57 L 08/12/20 08:00 98 08/12/20 07:58 97.9 F 68 16 97/57 L 98 Weight Admit Weight 227 lb Weight 227 lb I&O: 08/11/20 08/12/20 08/13/20 06:59 06:59 06:59 Intake Total 840 820 Output Total 750 500 400 Balance 90 -500 420 Result Diagrams: 08/12/20 06:10 08/12/20 06:10 Additional Labs: Accuchecks 08/12/20 08/12/20 08/11/20 12:44 06:11 20:58 POC Glucose 117 H 113 H 137 H 08/11/20 17:29 POC Glucose 143 H Hospitalist ROS - Review of Systems Constitutional: denies: fever, chills Respiratory: denies: cough, shortness of breath Cardiovascular: denies: chest pain, palpitations Gastrointestinal: denies: nausea, vomiting - Medication Medications: Active Medications Generic Name Dose Route Start Last Admin Trade Name Freq PRN Reason Stop Dose Admin Acetaminophen 650 mg 08/04/20 18:29 08/06/20 12:03 Tylenol PO 650 mg Q4H PRN Administration Headache/Fever/Mild Pain (1-3) Albuterol/Ipratropium 3 ml 08/04/20 18:30 08/12/20 14:28 Duoneb NEB 3 ml [id number] HAILEY Administration Atorvastatin Calcium 40 mg 08/04/20 21:00 08/11/20 19:18 Lipitor PO 40 mg HS HAILEY Administration Clonidine 0.1 mg 08/04/20 21:00 08/12/20 08:05 Catapres PO Not Given BID HAILEY Enoxaparin Sodium 30 mg 08/05/20 09:00 08/12/20 08:04 Lovenox SC 30 mg 0900 HAILEY Administration Piperacillin Sod/Tazobactam 100 mls @ 200 mls/hr 08/06/20 12:00 08/12/20 14: 01 Sod 2.25 gm/ Sodium Chloride IVPB 100 mls Q6HR HAILEY Administration Potassium Chloride 40 meq/ 1,020 mls @ 100 mls/hr 08/11/20 19:15 08/12/20 06: 01 Sodium Chloride IV 1,020 mls .[id number] HAILEY Administration Insulin Human Lispro 0 units 08/04/20 20:43 08/06/20 11:54 Humalog SC 2 units .MILD SLIDING SCALE PRN Administration Mild Correctional Scale Metoprolol Succinate 50 mg 08/05/20 09:00 08/12/20 08:04 Toprol Xl PO 50 mg DAILY HAILEY Administration Sodium Chloride 10 ml 08/04/20 21:00 08/12/20 10:51 Flush - Normal Saline IVF Not Given Q12HR HAILEY - Exam General Appearance: NAD, awake alert Eye: PERRL, anicteric sclera ENT: normocephalic atraumatic Heart: RRR, no murmur Respiratory: CTAB, no wheezes Gastrointestinal: soft, non-tender Extremities: 1+ LE edema Neurological: cranial nerve grossly intact Psychiatric: normal affect, normal behavior, A&O x 3 Hosp A/P (1) Large bowel obstruction Code(s): K56.609 - UNSP INTESTNL OBST, UNSP TO PARTIAL VERSUS COMPLETE OBST Status: Acute (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 DISORDERS Status: Acute (3) LAKEISHA (acute kidney injury) Code(s): N17.9 - ACUTE KIDNEY FAILURE, UNSPECIFIED Status: Acute (4) Acute on chronic diastolic CHF (congestive heart failure) Code(s): I50.33 - ACUTE ON CHRONIC DIASTOLIC (CONGESTIVE) HEART FAILURE Status : Acute (5) Acute renal failure superimposed on stage 3 chronic kidney disease Code(s): N17.9 - ACUTE KIDNEY FAILURE, UNSPECIFIED; N18.3 - CHRONIC KIDNEY DISEASE, STAGE 3 (MODERATE) Status: Acute (6) HTN (hypertension) Code(s): I10 - ESSENTIAL (PRIMARY) HYPERTENSION Status: Chronic Qualifiers: (7) Type 2 diabetes mellitus Status: Chronic Qualifiers: Diabetes mellitus open source developer insulin use: without correction use Diabetes mellitus complication status: with kidney complications Diabetes mellitus complication detail: with chronic kidney disease Chronic kidney disease stage : stage 3 (moderate) Qualified Code(s): E11.22 - Type 2 diabetes mellitus with diabetic chronic kidney disease; N18.3 - Chronic kidney disease, stage 3 ( moderate) - Plan Sigmoidoscopy 08/08- biopsy without malignancy, findings of ischemic colitis NG tube clamped from 08/10, tolerating well Tolerating liquid diet Having bowel movements Overall, has poor functional status, edema ++ with low albumin and third spacing. Could benefit from SNF placement empiric zosyn for uti and abd issue, blood cs are -ve, urine cs grew enterococcus resistant to quinolones. Continue PT/OT to mobilize as tolerated prognosis guarded gentle iv fluids, pain control prn Janusz santos for LE edema GI signed off- thank you for consult
--- NOTE | 2020-08-12 15:36 | OP ---
DATE OF PROCEDURE: 08/11/2020 PREOPERATIVE DIAGNOSES: Verbank's ileus, probably gastroparesis to some degree, poor IV access. POSTOPERATIVE DIAGNOSES: Verbank's ileus, probably gastroparesis to some degree, poor IV access. HISTORY: Request for central line. Note in 2012, I performed a low anterior resection protective ileostomy and subsequent reversal. I have seen her for toe problems. Recommending conservative nonsurgical management. This hospitalization, Dr. Page saw her in coverage over the weekend for Nick's. PROCEDURE PERFORMED: Placement of right subclavian vein central line (left subclavian vein pacemaker). ANESTHESIA: 1% Xylocaine. DESCRIPTION OF PROCEDURE: With the patient at bedside in the Oncology unit, right paraclavicular area was prepared with ChloraPrep and draped in routine fashion. Local anesthetic 1% Xylocaine was infiltrated in the skin and subcutaneous tissue. Infraclavicular approach used to cannulate the right subclavian vein, obtaining good return of venous blood. J-wire threaded. Seldinger technique used to place a triple-lumen catheter, removing the J-wire, securing the catheter with 3-0 silk suture. Sterile dressing applied. Each port aspirated blood, flushed with saline solution. If the patient requires any surgical intervention in the future, please call as I am well aware of the patient and her family. The patient has had a CAT scan of the abdomen and pelvis and a flexible sigmoidoscopy with Dr. Santos. There was no obstruction in the rectosigmoid area where she had her sigmoid resection. Condition seems more of a gastroparesis combined with Nick's. Job ID: [id number]
[2020-08-12] MEDS: Atorvastatin Calcium 40 MG TAB PO SCH (20:16)
[2020-08-13] MEDS: Potassium Chloride 40 MEQ in Sodium Chloride 0.45% 1,000 ML IV SCH ×3 (04:58→18:13)
[2020-08-13] MEDS: Piperacillin/Tazobactam 2.25 GM in Sodium Chloride 0.9% 100 ML IVPB SCH ×4 (05:00→23:35)
[2020-08-13 05:10] LABS: #Eosinphils 0.1 thou/uL (0.0-0.7); #Lymphocytes 0.8 thou/uL (1.20-3.40); #Monocytes 0.8 thou/uL (0.11-0.59); %Basophils 0.4 % (0.0-1.0); %Eosinophils 1.5 % (0.0-10.0); %Lymphocytes 11.3 % (21.0-51.0); %Neutrophils 74.8 % (42.0-75.0); Hemoglobin 10.8 g/dL (12.0-16.0); Mean Corpuscular Hemoglobin 26.5 pg (27.0-31.0); Mean Corpuscular Volume 85.5 fL (78.0-98.0); Mean Platelet Volume 9.5 fL (7.4-10.4); Platelet Count 188 thou/uL (130-400); RBC Distribution Width 15.8 % (11.5-14.5); Red Blood Cell (RBC) Count 4.06 mill/uL (4.20-5.40); White Blood Cell (WBC) Count 6.6 thou/uL (4.8-10.8)
[2020-08-13 05:36] LABS: Anion Gap 14 mmol/L (10-20); BUN (Urea Nitrogen) 36 mg/dL (9.8-20.1); Calc. Creatinine Clearance 47 mL/min (70-130); Calcium 7.8 mg/dL (7.8-10.44); Carbon Dioxide 25 mmol/L (23-31); Chloride 110 mmol/L (98-107); Estimated GFR-MDRD 35; Glucose 94 mg/dL (83-110); Potassium 4.7 mmol/L (3.5-5.1); Sodium 144 mmol/L (136-145)
[2020-08-13] MEDS ORDERED: Furosemide 40 MG/4 ML VIAL SLOW IVP SCH (08:15)
--- NOTE | 2020-08-13 08:25 | PRG ---
DATE OF SERVICE: 08/13/2020 SUBJECTIVE: Ms. Rico is an 85-year-old white female, who was admitted for abdominal discomfort/abdominal pain and seen by the Renal Service for her acute kidney injury on top of her chronic renal failure. She was initially empirically volume repleted with crystalloids in albumin. Renal function has slowly been improving. Due to the complaints of generalized edema, we have restarted her on Lasix at 40 mg tablet daily starting in a.m., 40 mg IV x1 dose was given today. The patient denies any chest pain or shortness of breath. OBJECTIVE: VITAL SIGNS: Blood pressure 122/80, heart rate 69, respiratory rate 16, temperature 98.2, O2 saturation 94% room air. GENERAL: Awake, alert, obese, comfortable, not in distress. SKIN: Adequate turgor. HEENT: Pinkish conjunctivae. Anicteric sclerae. No neck mass. No carotid bruits. No JVD. CHEST: No deformities. LUNGS: Clear breath sounds. HEART: Normal sinus rhythm. No murmurs, gallops, or rubs. ABDOMEN: Globular, soft, nontender. No masses. EXTREMITIES: Positive for edema. MEDICATIONS: August 13, 2020, was reviewed. LABORATORY DATA: August 13, 2020, white count 6.6, hemoglobin 10.8. Sodium 144, potassium 4.7, chloride 110, carbon dioxide 25, BUN 36, creatinine 1.41, glucose 94, calcium 7.8. ASSESSMENT AND PLAN: 1. Acute kidney injury-superimposed hemodynamically-mediated renal dysfunction, improving renal function over time. Continue current management. We will resume back on diuretics due to generalized edema/leg edema. 2. [place] syndrome-clinically much improved, tolerating p.o. 3. Recheck basic metabolic panel, CBC in a.m. Job ID: [id number]
[2020-08-13] MEDS: Enoxaparin Sodium 30 MG/0.3 ML SYRINGE SC SCH (08:35)
[2020-08-13] MEDS: cloNIDine 0.1 MG TAB PO SCH ×2 (08:36→20:21)
--- NOTE | 2020-08-13 14:19 | PDOC.HOSPP ---
- Subjective Encounter Date: 08/13/20 Subjective: Patient is doing well. Reports she is tolerating a diet. She notes increased edema in bilateral arms. Denies chest pain, difficulty breathing, abdominal pain. - Objective Vital Signs & Weight: Vital Signs (12 hours) Temp Pulse Resp BP BP Pulse Ox 08/13/20 11:13 72 16 97 08/13/20 08:36 114/56 L 08/13/20 08:06 70 14 97 08/13/20 08:00 94 L 08/13/20 07:58 98.2 F 69 16 122/80 94 L 08/13/20 03:25 68 12 Weight Admit Weight 227 lb Weight 227 lb I&O: 08/12/20 08/13/20 08/14/20 06:59 06:59 06:59 Intake Total 4070 550 Output Total 500 900 650 Balance -500 3170 -100 Result Diagrams: 08/13/20 05:00 08/13/20 05:00 Additional Labs: Accuchecks 08/13/20 08/12/20 08/12/20 11:09 20:30 16:51 POC Glucose 88 93 152 H Hospitalist ROS - Review of Systems Constitutional: denies: fever, chills Respiratory: denies: cough, shortness of breath Cardiovascular: denies: chest pain, palpitations Gastrointestinal: denies: nausea, vomiting - Medication Medications: Active Medications Generic Name Dose Route Start Last Admin Trade Name Freq PRN Reason Stop Dose Admin Acetaminophen 650 mg 08/04/20 18:29 08/06/20 12:03 Tylenol PO 650 mg Q4H PRN Administration Headache/Fever/Mild Pain (1-3) Atorvastatin Calcium 40 mg 08/04/20 21:00 08/12/20 20:16 Lipitor PO 40 mg HS HAILEY Administration Clonidine 0.1 mg 08/04/20 21:00 08/13/20 08:36 Catapres PO Not Given BID HAILEY Enoxaparin Sodium 30 mg 08/05/20 09:00 08/13/20 08:35 Lovenox SC 30 mg 0900 HAILEY Administration Piperacillin Sod/Tazobactam 100 mls @ 200 mls/hr 08/06/20 12:00 08/13/20 11: 06 Sod 2.25 gm/ Sodium Chloride IVPB 100 mls Q6HR HAILEY Administration Potassium Chloride 40 meq/ 1,020 mls @ 100 mls/hr 08/11/20 19:15 08/13/20 13: 48 Sodium Chloride IV Not Given .[id number] HAILEY Insulin Human Lispro 0 units 08/04/20 20:43 08/06/20 11:54 Humalog SC 2 units .MILD SLIDING SCALE PRN Administration Mild Correctional Scale Metoprolol Succinate 50 mg 08/05/20 09:00 08/13/20 08:35 Toprol Xl PO 50 mg DAILY HAILEY Administration Sodium Chloride 10 ml 08/04/20 21:00 08/13/20 08:36 Flush - Normal Saline IVF 10 ml Q12HR HAILEY Administration - Exam General Appearance: awake alert Eye: PERRL, anicteric sclera ENT: normocephalic atraumatic, no oropharyngeal lesions Heart: RRR, no murmur Respiratory: CTAB, no wheezes Gastrointestinal: soft, non-tender Extremities: no cyanosis, 1+ LE edema (edema in bilateral upper extremities) Neurological: cranial nerve grossly intact Psychiatric: normal affect, normal behavior, A&O x 3 Hosp A/P (1) Large bowel obstruction Code(s): K56.609 - UNSP INTESTNL OBST, UNSP TO PARTIAL VERSUS COMPLETE OBST Status: Acute (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 DISORDERS Status: Acute (3) LAKEISHA (acute kidney injury) Code(s): N17.9 - ACUTE KIDNEY FAILURE, UNSPECIFIED Status: Acute (4) Acute on chronic diastolic CHF (congestive heart failure) Code(s): I50.33 - ACUTE ON CHRONIC DIASTOLIC (CONGESTIVE) HEART FAILURE Status : Acute (5) Acute renal failure superimposed on stage 3 chronic kidney disease Code(s): N17.9 - ACUTE KIDNEY FAILURE, UNSPECIFIED; N18.3 - CHRONIC KIDNEY DISEASE, STAGE 3 (MODERATE) Status: Acute (6) HTN (hypertension) Code(s): I10 - ESSENTIAL (PRIMARY) HYPERTENSION Status: Chronic Qualifiers: (7) Type 2 diabetes mellitus Status: Chronic Qualifiers: Diabetes mellitus [facility] insulin use: without [facility] use Diabetes mellitus complication status: with kidney complications Diabetes mellitus complication detail: with chronic kidney disease Chronic kidney disease stage : stage 3 (moderate) Qualified Code(s): E11.22 - Type 2 diabetes mellitus with diabetic chronic kidney disease; N18.3 - Chronic kidney disease, stage 3 ( moderate) - Plan Sigmoidoscopy 08/08- biopsy without malignancy, findings of ischemic colitis Tolerating liquid diet Having bowel movements Gentle diuresis- restarted on lasix 40mg PO Janusz hose for LE edema Overall, has poor functional status, edema ++ with low albumin and third spacing. Could benefit from SNF placement Day 8 of zosyn for uti and abd issue. Blood cs are -ve, urine cs grew enterococcus resistant to quinolones. Continue PT/OT to mobilize as tolerated prognosis guarded pain control prn GI signed off- thank you for consult
[2020-08-13] MEDS: Atorvastatin Calcium 40 MG TAB PO SCH (20:14)
[2020-08-14] MEDS: Potassium Chloride 40 MEQ in Sodium Chloride 0.45% 1,000 ML IV SCH ×2 (02:16→21:06)
[2020-08-14] MEDS: cloNIDine 0.1 MG TAB PO SCH ×2 (08:25→21:06)
[2020-08-14] MEDS: Enoxaparin Sodium 30 MG/0.3 ML SYRINGE SC SCH (08:25)
[2020-08-14] MEDS: Furosemide 40 MG TAB PO SCH (08:25)
[2020-08-14 08:35] LABS: #Eosinphils 0.1 thou/uL (0.0-0.7); #Lymphocytes 0.9 thou/uL (1.20-3.40); #Neutrophils 6.1 thou/uL (1.40-6.50); %Basophils 0.1 % (0.0-1.0); %Eosinophils 1.6 % (0.0-10.0); %Lymphocytes 11.7 % (21.0-51.0); %Monocytes 11.8 % (0.0-10.0); %Neutrophils 74.8 % (42.0-75.0); Hemoglobin 10.3 g/dL (12.0-16.0); Mean Corpuscular HGB CONC 30.6 g/dL (32.0-36.0); Mean Corpuscular Hemoglobin 26.4 pg (27.0-31.0); Mean Corpuscular Volume 86.2 fL (78.0-98.0); Mean Platelet Volume 9.6 fL (7.4-10.4); Platelet Count 180 thou/uL (130-400); RBC Distribution Width 15.6 % (11.5-14.5); Red Blood Cell (RBC) Count 3.91 mill/uL (4.20-5.40); White Blood Cell (WBC) Count 8.1 thou/uL (4.8-10.8)
[2020-08-14 08:51] LABS: Anion Gap 11 mmol/L (10-20); BUN (Urea Nitrogen) 29 mg/dL (9.8-20.1); Calc. Creatinine Clearance 54 mL/min (70-130); Calcium 7.7 mg/dL (7.8-10.44); Carbon Dioxide 24 mmol/L (23-31); Chloride 109 mmol/L (98-107); Estimated GFR-MDRD 41; Glucose 76 mg/dL (83-110); Potassium 4.3 mmol/L (3.5-5.1); Sodium 140 mmol/L (136-145)
[2020-08-14] MEDS: Piperacillin/Tazobactam 2.25 GM in Sodium Chloride 0.9% 100 ML IVPB SCH ×2 (10:57→14:01)
--- NOTE | 2020-08-14 13:23 | PDOC.HOSPP ---
- Subjective Encounter Date: 08/14/20 Subjective: Patient reports feeling better today. She notes improvement of edema in bilateral upper extremities. She is tolerating diet with multiple bowel movements. She denies chest pain, difficulty breathing, abdominal pain. - Objective Vital Signs & Weight: Vital Signs (12 hours) Temp Pulse Resp BP Pulse Ox 08/14/20 08:00 98.3 F 74 18 123/65 96 Weight Admit Weight 227 lb Weight 227 lb I&O: 08/13/20 08/14/20 08/15/20 06:59 06:59 06:59 Intake Total 4070 1950 Output Total 900 1050 Balance 3170 900 Result Diagrams: 08/14/20 05:10 08/14/20 03:30 Additional Labs: Accuchecks 08/14/20 08/14/20 08/13/20 11:15 05:12 20:18 POC Glucose 89 73 92 08/13/20 16:41 POC Glucose 83 Hospitalist ROS - Review of Systems Constitutional: denies: fever, chills Respiratory: denies: cough, shortness of breath Cardiovascular: denies: chest pain, palpitations Gastrointestinal: denies: nausea, vomiting, abdominal pain Neurological: reports: weakness - Medication Medications: Active Medications Generic Name Dose Route Start Last Admin Trade Name Freq PRN Reason Stop Dose Admin Acetaminophen 650 mg 08/04/20 18:29 08/06/20 12:03 Tylenol PO 650 mg Q4H PRN Administration Headache/Fever/Mild Pain (1-3) Atorvastatin Calcium 40 mg 08/04/20 21:00 08/13/20 20:14 Lipitor PO 40 mg HS HAILEY Administration Clonidine 0.1 mg 08/04/20 21:00 08/14/20 08:25 Catapres PO 0.1 mg BID HAILEY Administration Enoxaparin Sodium 30 mg 08/05/20 09:00 08/14/20 08:25 Lovenox SC 30 mg 0900 HAILEY Administration Furosemide 40 mg 08/14/20 09:00 08/14/20 08:25 Lasix PO 40 mg DAILY HAILEY Administration Potassium Chloride 40 meq/ 1,020 mls @ 100 mls/hr 08/11/20 19:15 08/14/20 02:16 Sodium Chloride IV 1,020 mls .[id number] HAILEY Administration Insulin Human Lispro 0 units 08/04/20 20:43 08/06/20 11:54 Humalog SC 2 units .MILD SLIDING SCALE PRN Administration Mild Correctional Scale Metoprolol Succinate 50 mg 08/05/20 09:00 08/14/20 08:25 Toprol Xl PO 50 mg DAILY HAILEY Administration Sodium Chloride 10 ml 08/04/20 21:00 08/14/20 11:00 Flush - Normal Saline IVF Not Given Q12HR HAILEY - Exam General Appearance: NAD, awake alert Eye: PERRL ENT: normocephalic atraumatic Heart: RRR, no murmur Respiratory: CTAB, no wheezes Gastrointestinal: soft, non-tender Extremities: no cyanosis, 1+ LE edema (improvement in edema of upper extremities) Neurological: cranial nerve grossly intact Psychiatric: normal affect, normal behavior, A&O x 3 Hosp A/P (1) Large bowel obstruction Code(s): K56.609 - UNSP INTESTNL OBST, UNSP TO PARTIAL VERSUS COMPLETE OBST Status: Acute (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 DISORDERS Status: Acute (3) LAKEISHA (acute kidney injury) Code(s): N17.9 - ACUTE KIDNEY FAILURE, UNSPECIFIED Status: Acute (4) Acute on chronic diastolic CHF (congestive heart failure) Code(s): I50.33 - ACUTE ON CHRONIC DIASTOLIC (CONGESTIVE) HEART FAILURE Status: Acute (5) Acute renal failure superimposed on stage 3 chronic kidney disease Code(s): N17.9 - ACUTE KIDNEY FAILURE, UNSPECIFIED; N18.3 - CHRONIC KIDNEY DISEASE, STAGE 3 (MODERATE) Status: Acute (6) HTN (hypertension) Code(s): I10 - ESSENTIAL (PRIMARY) HYPERTENSION Status: Chronic Qualifiers: (7) Type 2 diabetes mellitus Status: Chronic Qualifiers: Diabetes mellitus retirement insulin use: without meterman use Diabetes mellitus complication status: with kidney complications Diabetes mellitus complication detail: with chronic kidney disease Chronic kidney disease stage: stage 3 (moderate) Qualified Code(s): E11.22 - Type 2 diabetes mellitus with diabetic chronic kidney disease; N18.3 - Chronic kidney disease, stage 3 (moderate) - Plan Sigmoidoscopy 08/08- biopsy without malignancy, findings of ischemic colitis Tolerating liquid diet Having bowel movements Gentle diuresis- restarted on lasix 40mg PO Janusz hose for LE edema Discontinued zosyn for UTI. Blood cs are -ve, urine cs grew enterococcus resistant to quinolones. Continue PT/OT to mobilize as tolerated Overall, has poor functional status, edema ++ with low albumin and third spacing. Discussed discharge options- she is agreeable to discussing placement options vs discharging to daughter's home Will consult case management
--- NOTE | 2020-08-14 18:35 | PRG ---
DATE OF SERVICE: 08/14/2020 SUBJECTIVE: Ms. Rico is an 85-year-old white female, initially admitted for abdominal pain and seen by the Renal Service for chronic renal failure. She had a superimposed acute kidney injury. She improved with hydration. No other complaints today. She has been restarted back on her diuretic regimen, which she seems to be tolerating. OBJECTIVE: VITAL SIGNS: Blood pressure is 123/65, heart rate 74, respiratory rate 18, temperature 98.3, O2 saturation 96%. GENERAL: The patient is awake, alert, obese, comfortable, not in distress. SKIN: Adequate turgor. HEENT: Slightly pale conjunctivae. Anicteric sclerae. No neck mass. No carotid bruits. No JVD. CHEST: No deformities. LUNGS: Clear breath sounds. HEART: Normal sinus rhythm. No murmurs, no gallops, no rubs. ABDOMEN: Globular, soft, nontender. No masses. EXTREMITIES: Positive for edema, but no deformities. MEDICATIONS: Of August 14, 2020, reviewed. LABORATORY DATA: Of August 14, 2020: White count 8.1, hemoglobin 10.3. Sodium 140, potassium 4.3, chloride 109, carbon dioxide 24, BUN 29, creatinine 1.24, calcium 7.7. ASSESSMENT AND PLAN: 1. Acute kidney injury/chronic renal failure, improving renal function. Creatinine of 1.24, is at its best value. She has currently stage 3 chronic renal failure. No indication for any dialytic intervention. Continue supportive care. I have decreased the IV fluid half-normal saline to 50 mL/hour. She will continue the current Lasix at 40 mg once a day. Again, no indication for any emergent hemodialysis. 2. Abdominal pain, much improved. She is tolerating her p.o. intake. 3. Continue supportive care. We will recheck CBC and basic metabolics in a.m. Job ID: [id number]
[2020-08-14] MEDS: Atorvastatin Calcium 40 MG TAB PO SCH (21:06)
[2020-08-15 06:05] LABS: #Eosinphils 0.2 thou/uL (0.0-0.7); #Lymphocytes 0.8 thou/uL (1.20-3.40); #Monocytes 0.6 thou/uL (0.11-0.59); #Neutrophils 5.5 thou/uL (1.40-6.50); %Basophils 0.2 % (0.0-1.0); %Eosinophils 2.2 % (0.0-10.0); %Lymphocytes 11.5 % (21.0-51.0); %Monocytes 8.7 % (0.0-10.0); %Neutrophils 77.4 % (42.0-75.0); Hemoglobin 9.6 g/dL (12.0-16.0); Mean Corpuscular HGB CONC 31.3 g/dL (32.0-36.0); Mean Corpuscular Hemoglobin 26.7 pg (27.0-31.0); Mean Corpuscular Volume 85.3 fL (78.0-98.0); Mean Platelet Volume 9.5 fL (7.4-10.4); Platelet Count 190 thou/uL (130-400); RBC Distribution Width 15.4 % (11.5-14.5); Red Blood Cell (RBC) Count 3.57 mill/uL (4.20-5.40); White Blood Cell (WBC) Count 7.2 thou/uL (4.8-10.8)
[2020-08-15 06:26] LABS: Anion Gap 11 mmol/L (10-20); BUN (Urea Nitrogen) 23 mg/dL (9.8-20.1); Calc. Creatinine Clearance 62 mL/min (70-130); Calcium 7.3 mg/dL (7.8-10.44); Carbon Dioxide 24 mmol/L (23-31); Chloride 110 mmol/L (98-107); Estimated GFR-MDRD 49; Glucose 77 mg/dL (83-110); Potassium 3.5 mmol/L (3.5-5.1); Sodium 141 mmol/L (136-145)
[2020-08-15] MEDS: Enoxaparin Sodium 30 MG/0.3 ML SYRINGE SC SCH (08:26)
[2020-08-15] MEDS: cloNIDine 0.1 MG TAB PO SCH ×2 (08:26→20:30)
[2020-08-15] MEDS: Furosemide 40 MG TAB PO SCH (08:26)
--- NOTE | 2020-08-15 08:45 | PRG ---
DATE OF SERVICE: 08/15/2020 SUBJECTIVE: Ms. Rico is an 85-year-old white female, seen by the Renal Service for her acute kidney injury on top of her chronic renal failure. She had a superimposed prerenal azotemia. This has slowly been improving with volume repletion. Recently, we restarted back the diuretics due to more leg swelling and upper extremity swelling with this patient. Of interest, the patient was diagnosed to have Nick syndrome and has now improved. She is tolerating her p.o. intake. No complaints of chest pain or shortness of breath. OBJECTIVE: VITAL SIGNS: Blood pressure is noted at 132/65, heart rate 74, respiratory rate 16, temperature 98.2, O2 saturations 96%. GENERAL: The patient is awake, alert, comfortable, obese, not in distress. SKIN: Adequate turgor. HEENT: She has pinkish conjunctivae. Anicteric sclerae. No neck mass. No carotid bruits. No JVD. CHEST: No deformities. LUNGS: Clear breath sounds. No wheezing. No crackles. HEART: Normal sinus rhythm. No murmurs, no gallops, no rubs. ABDOMEN: Globular, soft, nontender. No masses. EXTREMITIES: Positive for edema. No deformities. MEDICATIONS: Medications of August 15, 2020, was reviewed. LABORATORY DATA: Laboratories of August 15, 2020; white count 7.2, hemoglobin 9.6. Sodium 141, potassium 3.5, chloride 110, carbon dioxide 24, BUN 23, creatinine 1.07, GFR 49 mL/minute, calcium 7.3. ASSESSMENT AND PLAN: 1. Acute kidney injury on top of chronic renal failure, much improved renal function. The patient is status post volume repletion. She is currently on maintenance half-normal saline. In addition, she is tolerating the current diuretic regimen. There is no indication for any dialytic intervention. Continue current management. 2. Nick syndrome, clinically much improved. 3. Borderline anemia-continue to observe p.r.n. blood transfusion for hemoglobin less than 7. Job ID: [id number]
[2020-08-15] MEDS ORDERED: Potassium Chloride 20 MEQ TAB PO SCH (10:00)
--- NOTE | 2020-08-15 13:26 | PDOC.HOSPP ---
- Subjective Encounter Date: 08/15/20 Subjective: Patient is resting comfortably in bed, edema much improved from yesterday. She is tolerating liquid diet, advancing to soft diet for lunch. She denies chest pain, difficulty breathing, abdominal pain. Reports many bowel movements. good UOP - Objective Vital Signs & Weight: Vital Signs (12 hours) Temp Pulse Pulse Resp BP Pulse Ox Pulse Ox 08/15/20 11:50 70 16 08/15/20 09:05 70 96 08/15/20 07:44 98.2 F 74 16 132/65 96 Weight Admit Weight 227 lb Weight 227 lb I&O: 08/14/20 08/15/20 08/16/20 06:59 06:59 06:59 Intake Total 1950 2480 Output Total 1050 1900 Balance 900 580 Result Diagrams: 08/15/20 05:55 08/15/20 05:55 Additional Labs: Accuchecks 08/15/20 08/15/20 08/14/20 11:22 05:53 16:01 POC Glucose 110 H 73 109 H Hospitalist ROS - Review of Systems Constitutional: denies: fever, chills Respiratory: denies: cough, shortness of breath Cardiovascular: reports: edema. denies: chest pain, palpitations Gastrointestinal: denies: nausea, vomiting, abdominal pain Skin: reports: bruising Neurological: reports: weakness - Medication Medications: Active Medications Generic Name Dose Route Start Last Admin Trade Name Freq PRN Reason Stop Dose Admin Acetaminophen 650 mg 08/04/20 18:29 08/06/20 12:03 Tylenol PO 650 mg Q4H PRN Administration Headache/Fever/Mild Pain (1-3) Albuterol/Ipratropium 3 ml 08/13/20 11:18 08/15/20 11:50 Duoneb NEB 3 ml Q4H PRN Administration Dyspnea/Wheezing/SOB Atorvastatin Calcium 40 mg 08/04/20 21:00 08/14/20 21:06 Lipitor PO 40 mg HS HAILEY Administration Clonidine 0.1 mg 08/04/20 21:00 08/15/20 08:26 Catapres PO 0.1 mg BID HAILEY Administration Enoxaparin Sodium 30 mg 08/05/20 09:00 08/15/20 08:26 Lovenox SC 30 mg 0900 HAILEY Administration Furosemide 40 mg 08/14/20 09:00 08/15/20 08:26 Lasix PO 40 mg DAILY HAILEY Administration Potassium Chloride 40 meq/ 1,020 mls @ 50 mls/hr 08/11/20 19:15 08/14/20 21:06 Sodium Chloride IV 1,020 mls .[id number] HAILEY Administration Insulin Human Lispro 0 units 08/04/20 20:43 08/06/20 11:54 Humalog SC 2 units .MILD SLIDING SCALE PRN Administration Mild Correctional Scale Metoprolol Succinate 50 mg 08/05/20 09:00 08/15/20 08:26 Toprol Xl PO 50 mg DAILY HAILEY Administration Potassium Chloride 40 meq 08/15/20 10:00 08/15/20 11:17 Potassium Chloride 20 Meq Tab PO 08/15/20 14:00 40 meq NOW HAILEY Administration Sodium Chloride 10 ml 08/04/20 21:00 08/15/20 08:27 Flush - Normal Saline IVF 10 ml Q12HR HAILEY Administration - Exam General Appearance: NAD, awake alert ENT: normocephalic atraumatic Heart: RRR, no murmur Respiratory: CTAB, no wheezes Gastrointestinal: soft, non-tender Extremities: 1+ LE edema Neurological: cranial nerve grossly intact Psychiatric: normal affect, normal behavior, A&O x 3 Hosp A/P (1) Large bowel obstruction Code(s): K56.609 - UNSP INTESTNL OBST, UNSP TO PARTIAL VERSUS COMPLETE OBST Status: Resolved (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 DISORDERS Status: Acute (3) LAKEISHA (acute kidney injury) Code(s): N17.9 - ACUTE KIDNEY FAILURE, UNSPECIFIED Status: Acute (4) Acute on chronic diastolic CHF (congestive heart failure) Code(s): I50.33 - ACUTE ON CHRONIC DIASTOLIC (CONGESTIVE) HEART FAILURE Status: Acute (5) Acute renal failure superimposed on stage 3 chronic kidney disease Code(s): N17.9 - ACUTE KIDNEY FAILURE, UNSPECIFIED; N18.3 - CHRONIC KIDNEY DISEASE, STAGE 3 (MODERATE) Status: Acute (6) HTN (hypertension) Code(s): I10 - ESSENTIAL (PRIMARY) HYPERTENSION Status: Chronic Qualifiers: (7) Type 2 diabetes mellitus Status: Chronic Qualifiers: Diabetes mellitus rat exterminator insulin use: without rat exterminator use Diabetes mellitus complication status: with kidney complications Diabetes mellitus complication detail: with chronic kidney disease Chronic kidney disease stage: stage 3 (moderate) Qualified Code(s): E11.22 - Type 2 diabetes mellitus with diabetic chronic kidney disease; N18.3 - Chronic kidney disease, stage 3 (moderate) - Plan Sigmoidoscopy 08/08- biopsy without malignancy, findings of ischemic colitis Tolerating liquid diet, will advance to soft diet for lunch today. Having bowel movements Gentle diuresis- restarted on lasix 40mg PO Receiving fluids 50cc/hour Janusz hose for LE edema Completed course of zosyn. Blood cs are -ve, urine cs grew enterococcus resistant to quinolones. Continue PT/OT to mobilize as tolerated Overall, has poor functional status, edema ++ with low albumin and third spaci ng. Discussed discharge options with patient and daughter at bedside today. Daughter and patient are agreeable that patient returns to daughter's home upon discharge. She is already set up with home health. Anticipate discharge home tomorrow
[2020-08-15] MEDS: Potassium Chloride 40 MEQ in Sodium Chloride 0.45% 1,000 ML IV SCH (17:38)
[2020-08-15] MEDS: Atorvastatin Calcium 40 MG TAB PO SCH (20:30)
[2020-08-16 06:17] LABS: #Eosinphils 0.2 thou/uL (0.0-0.7); #Monocytes 0.8 thou/uL (0.11-0.59); #Neutrophils 6.5 thou/uL (1.40-6.50); %Basophils 0.3 % (0.0-1.0); %Eosinophils 2.5 % (0.0-10.0); %Lymphocytes 11.5 % (21.0-51.0); %Monocytes 9.1 % (0.0-10.0); %Neutrophils 76.6 % (42.0-75.0); Hemoglobin 10.3 g/dL (12.0-16.0); Mean Corpuscular HGB CONC 30.8 g/dL (32.0-36.0); Mean Corpuscular Hemoglobin 26.4 pg (27.0-31.0); Mean Corpuscular Volume 85.9 fL (78.0-98.0); Mean Platelet Volume 9.6 fL (7.4-10.4); Platelet Count 219 thou/uL (130-400); RBC Distribution Width 15.8 % (11.5-14.5); Red Blood Cell (RBC) Count 3.88 mill/uL (4.20-5.40); White Blood Cell (WBC) Count 8.5 thou/uL (4.8-10.8)
[2020-08-16 06:42] LABS: Anion Gap 11 mmol/L (10-20); BUN (Urea Nitrogen) 17 mg/dL (9.8-20.1); Calc. Creatinine Clearance 78 mL/min (70-130); Calcium 7.2 mg/dL (7.8-10.44); Carbon Dioxide 21 mmol/L (23-31); Chloride 109 mmol/L (98-107); Estimated GFR-MDRD 63; Glucose 94 mg/dL (83-110); Potassium 3.4 mmol/L (3.5-5.1); Sodium 138 mmol/L (136-145)
[2020-08-16 07:56] VITALS: TEMP 98.5
[2020-08-16] MEDS ORDERED: Potassium Chloride 20 MEQ TAB PO SCH ×2 (08:00→09:00)
[2020-08-16] MEDS: cloNIDine 0.1 MG TAB PO SCH (08:54)
[2020-08-16 08:55] VITALS: BP 134/62
[2020-08-16] MEDS: Enoxaparin Sodium 30 MG/0.3 ML SYRINGE SC SCH (08:55)
[2020-08-16] MEDS: Furosemide 40 MG TAB PO SCH (08:55)
[2020-08-16] MEDS ORDERED: Electrolyte Replacement Protocol FS PRN (09:00)
[2020-08-16] MEDS ORDERED: Magnesium 2 GM/50 ML 2 GM in Premix Bag 1 BAG IVPB SCH (12:00)
--- NOTE | 2020-08-17 05:03 | DIS ---
DATE OF ADMISSION: 08/04/2020 DATE OF DISCHARGE: 08/16/2020 HOSPITAL DIAGNOSIS: large bowel obstruction HOSPITAL COURSE: She reported her last bowel movement was 3 days prior to arrival. She was endorsing passing some flatus. Abdominal CT was obtained in the emergency department, which showed marked colonic distension with cecum measuring nearly 8 cm. There was also associated gas and fluid-filled distension of some of the small bowel loops. The patient was admitted to the telemetry for large bowel obstruction. General Surgery had been consulted from the emergency department, however, the patient did not undergo any procedures. Surgery recommended conservative management with bowel regimen, and NG tube decompression. Nephrology was consulted due to the patient's LAKEISHA. Her Lasix was discontinued at this time. She was started on lactated Ringer's with potassium supplementation. GI was consulted with recommendations of supportive therapy. The patient was also started on Zosyn for concern of UTI and any concerns of intraabdominal infection. The patient underwent supportive therapy for her large bowel obstruction. On 08/08/2020, the patient underwent colonoscopy, which showed colonic ileus and some area of ulceration in the hepatic flexure consistent with ischemic colitis which was biopsied and a rectal decompression tube was left in place. Supportive therapy was maintained. The patient was gently diuresed and return of bowel function improved. Fluids were discontinued and the patient was transitioned back to her home Lasix with appropriate diureses. PHYSICAL EXAMINATION: GENERAL: On day of discharge, the patient was resting comfortably in bed. HEENT: Normocephalic and atraumatic. HEART: Regular rate and rhythm. LUNGS: Clear to auscultation bilaterally. ABDOMEN: Soft, nontender and nondistended. EXTREMITIES: She did have 1+ pitting edema to her bilateral lower extremities and mild edema of her bilateral upper extremities. The patient was not requiring any supplemental oxygen at that time. DISPOSITION: Discussion with daughter and patient with patient's wishes to return home to live with her daughter. ACTIVITY: As tolerated. DIET: Coumadin heart-healthy, low-sodium diet. MEDICATIONS: 1. No new medications were started. 2. The patient was restarted on her metformin 250 mg daily. 3. Warfarin 2 mg daily. 4. Metoprolol 50 mg daily. 5. Iron 325 mg daily. 6. Atorvastatin 40 mg daily. 7. Clonidine 0.1 mg p.o. b.i.d. 8. Lasix 40 mg daily. DISCHARGE INSTRUCTIONS: Patient was instructed to follow up with her PCP within 3 days. The patient was stable for discharge and discharged home to her daughter's house. Return precautions were given. Time spent in discharge of this patient took greater than 30 minutes. Job ID: [id number] MTDD
== END 2020-08-16 15:11 | disposition home or self-care (01) | DRG 388 ==
LOC: ERS 13:55 → 2NO 17:28 → ONC 08-05 12:13
PROVIDERS: ADMIT Surgery; ATTEND Surgery
PROC: 0DBL8ZX Excision of Transverse Colon, Via Natural or Artificial Opening Endoscopic, Diagnostic (ICD-10-PCS; principal; 2020-08-08)
PROC: 02HV33Z Insertion of Infusion Device into Superior Vena Cava, Percutaneous Approach (ICD-10-PCS; 2020-08-11)
DX: K56.699 Other intestinal obstruction unspecified as to partial versus complete obstruction (principal); I50.33 Acute on chronic diastolic (congestive) heart failure; N39.0 Urinary tract infection, site not specified; N17.9 Acute kidney failure, unspecified; Z16.23 Resistance to quinolones and fluoroquinolones; K55.9 Vascular disorder of intestine, unspecified; K63.3 Ulcer of intestine; E87.0 Hyperosmolality and hypernatremia; I13.0 Hypertensive heart and chronic kidney disease with heart failure and stage 1 through stage 4 chronic kidney disease, or unspecified chronic kidney disease; Z20.828 Contact with and (suspected) exposure to other viral communicable diseases; E78.5 Hyperlipidemia, unspecified; G47.33 Obstructive sleep apnea (adult) (pediatric); K63.89 Other specified diseases of intestine; J44.9 Chronic obstructive pulmonary disease, unspecified; E87.6 Hypokalemia; D64.9 Anemia, unspecified; R79.1 Abnormal coagulation profile; R53.81 Other malaise; N18.3 Chronic kidney disease, stage 3 (moderate); E66.9 Obesity, unspecified; B95.2 Enterococcus as the cause of diseases classified elsewhere; I48.0 Paroxysmal atrial fibrillation; M10.9 Gout, unspecified; Z79.01 Long term (current) use of anticoagulants; Z90.49 Acquired absence of other specified parts of digestive tract; Z90.710 Acquired absence of both cervix and uterus; Z98.890 Other specified postprocedural states; Z95.0 Presence of cardiac pacemaker; Z90.89 Acquired absence of other organs; Z68.35 Body mass index [BMI] 35.0-35.9, adult; Z85.048 Personal history of other malignant neoplasm of rectum, rectosigmoid junction, and anus
CPT/HCPCS: 36415; 36416; 36600; 51701; 71045; 74018; 74176; 80048; 80053; 80076; 81003; 81015; 82553; 83690; 83735; 83880; 84100; 84484; 85025; 85610; 85730; 87040; 87077; 87086; 87186; 87324; 87449; 87635; 88305; 93005; 94640; 94660; 96365; C9132; J0744; J1642; J1650; J1940; J2405; J2543; J2550; J2704; J3430; J3475; J3480; J3490; J7050; J7120; J7512; J7620; P9047; U0003

== ENCOUNTER 2020-09-28 01:54 | Inpatient (IN) | payer MEDICARE ==
[2020-09-28 02:26] LABS: Hemoglobin 6.3 g/dL (12.0-16.0); Mean Corpuscular HGB CONC 32.2 g/dL (32.0-36.0); Mean Corpuscular Hemoglobin 28.1 pg (27.0-31.0); Mean Corpuscular Volume 87.5 fL (78.0-98.0); Platelet Count 643 thou/uL (130-400); RBC Distribution Width 16.5 % (11.5-14.5); Red Blood Cell (RBC) Count 2.24 mill/uL (4.20-5.40); White Blood Cell (WBC) Count 21.1 thou/uL (4.8-10.8)
[2020-09-28 02:36] LABS: ALT (SGPT) 11 U/L (8-55); AST (SGOT) 20 U/L (5-34); Alkaline Phosphatase 102 U/L (40-110); Anion Gap 19 mmol/L (10-20); BUN (Urea Nitrogen) 37 mg/dL (9.8-20.1); Bilirubin, Total 0.6 mg/dL (0.2-1.2); Calc. Creatinine Clearance 0 mL/min (70-130); Calcium 7.9 mg/dL (7.8-10.44); Carbon Dioxide 24 mmol/L (23-31); Chloride 97 mmol/L (98-107); Estimated GFR-MDRD 25; Globulin 3.4 g/dL (2.4-3.5); Glucose 159 mg/dL (83-110); Protein, Total 5.4 g/dL (6.0-8.3); Sodium 134 mmol/L (136-145)
[2020-09-28 02:43] LABS: Band 1 % (5-11); Lymphocytes 12 % (21-51); MDiff Complete? YES; Monocytes 2 % (0-10); Neutrophil 85 % (42-75); Ovalocytes MARKED = >16 cells (100X) (0-1/hpf); Platelet Morphology Comment Appears Increased; Reflex for Review?? NO
[2020-09-28 05:15] LABS: Prothrombin Time Greater than 150.0 sec (12.0-14.7)
[2020-09-28] MEDS ORDERED: Phytonadione 10 MG/ML AMP SLOW IVP SCH (06:15)
[2020-09-28] MEDS ORDERED: Cefepime 2 GM VIAL ONE (06:27)
[2020-09-28] MEDS ORDERED: HUM PROTHROMBIN CPLX(PCC)4FACT 1,000 UNIT, Human Prothrombin Complx(PCC) 500 UNIT in Ad... IV SCH (06:30)
[2020-09-28] MEDS ORDERED: Vancomycin 1 GM/200 ML BAG ONE (06:32)
[2020-09-28] MEDS ORDERED: Phytonadione 10 MG/ML AMP ONE (06:32)
[2020-09-28 07:00] LABS: Lactic Acid 1.5 mmol/L (0.5-2.2)
[2020-09-28 07:21] LABS: Blood, Urine Large (Negative); Glucose, Urine (Dipstick) Negative (Negative); Ketone, Urine Trace mg/dL (Negative); Leukocyte Moderate (Negative); Nitrite Negative (Negative); Protein, Urine (Dipstick) Negative (Neg-Trace); Specific Gravity, Urine 1.025 (1.005-1.030)
[2020-09-28 07:26] LABS: Clarity Turbid (Clear)
[2020-09-28 07:27] LABS: Bilirubin Unable to Interpret (Negative)
[2020-09-28 07:34] LABS: Bacteria/HPF 4+ HPF (None Seen)
[2020-09-28] MEDS ORDERED: Calcium Gluc 4.6 MEQ/10 ML (100 MG/ML) SLOW IVP SCH ×2 (08:53→11:30)
--- NOTE | 2020-09-28 09:21 | ULT ---
PRELIMINARY REPORT/[facility]/AFTER HOURS PROCEDURE US DUPLEX RIGHT LOWER EXTREMITY VEINS: CLINICAL HISTORY: Hx right thigh/leg pain. Very limited exam. See notes on last image. Thanks. TECHNIQUE: Real-time ultrasound scan of the veins of the right lower extremity with color Doppler flow, spectral waveform analysis and compression. COMPARISON: None provided. FINDINGS: Anatomic detail is fairly limited. DEEP VEINS: The common femoral, femoral, and popliteal veins are echolucent and mostly compressible. These vessels demonstrate respiratory variation and augmentation. There is normal color Doppler flow throughout. The visualized calf veins are also patent. SUPERFICIAL VEINS: The visualized greater saphenous vein is patent. SOFT TISSUES: There is a fluid collection in the right thigh containing a fluid-fluid level. This me asures about 10 cm. IMPRESSION: 1. No definite, acute deep venous thrombosis in the right lower extremity. 2. Some sequela from the patient's prior DVT may be present. Large fluid collection in the thigh sadaf ure of which is unclear. Trauma? Hematoma? Abscess? ELECTRONICALLY SIGNED BY: Ezra Henson MD Sep 28, 2020 3:53:34 AM CDT This report is intended for review by the ordering physician only, in accordance of law. If you recei ve this report in error, please call [facility] at [phone]. FINAL REPORT EMERGENT AFTER HOURS STUDY RIGHT LOWER EXTREMITY VENOUS DOPPLER: IMPRESSION: I agree with the preliminary interpretation. No definite evidence for acute deep venous thrombosis. Nonspecific fluid collection within the right medial thigh. CODE QA POS: FERNANDA
[2020-09-28 09:24] LABS: #Basophils 0.1 thou/uL (0.0-0.2); #Lymphocytes 1.8 thou/uL (1.20-3.40); #Monocytes 1.7 thou/uL (0.11-0.59); #Neutrophils 16.1 thou/uL (1.40-6.50); %Basophils 0.4 % (0.0-1.0); %Eosinophils 0.2 % (0.0-10.0); %Monocytes 8.4 % (0.0-10.0); Hemoglobin 7.4 g/dL (12.0-16.0); Mean Corpuscular HGB CONC 32.8 g/dL (32.0-36.0); Mean Corpuscular Hemoglobin 28.1 pg (27.0-31.0); Mean Corpuscular Volume 85.9 fL (78.0-98.0); Mean Platelet Volume 7.7 fL (7.4-10.4); Platelet Count 540 thou/uL (130-400); RBC Distribution Width 16.2 % (11.5-14.5); Red Blood Cell (RBC) Count 2.64 mill/uL (4.20-5.40); White Blood Cell (WBC) Count 20.2 thou/uL (4.8-10.8)
[2020-09-28 09:35] LABS: Anion Gap 14 mmol/L (10-20); BUN (Urea Nitrogen) 35 mg/dL (9.8-20.1); Calc. Creatinine Clearance 0 mL/min (70-130); Calcium 7.4 mg/dL (7.8-10.44); Carbon Dioxide 26 mmol/L (23-31); Chloride 100 mmol/L (98-107); Estimated GFR-MDRD 27; Glucose 133 mg/dL (83-110); Potassium 5.3 mmol/L (3.5-5.1); Sodium 135 mmol/L (136-145)
--- NOTE | 2020-09-28 10:17 | RAD ---
SUPINE PORTABLE CHEST: 09/28/20 PROVIDED CLINICAL HISTORY: Hypotension. COMPARISON: 08/11/2020 FINDINGS: The examination is rotated, limiting assessment. The cardiac silhouette appears enlarged, which may b e at least partially on the basis of the portable technique. There is opacification of the right faheem thorax, likely reflecting posteriorly layering pleural fluid. The left lung appears grossly clear. Ev aluation for pneumothorax is limited, given the supine nature of the study. IMPRESSION: Opacification of the right hemithorax, likely on the basis of posteriorly layering right pleural flui d. POS: FERNANDA
[2020-09-28] MEDS ORDERED: Polyethylene Glycol 3350 17 GM Packet PO PRN (10:35)
[2020-09-28] MEDS ORDERED: Dextrose 50% Abboject 50 ML SYRINGE SLOW IVP PRN (10:35)
[2020-09-28] MEDS ORDERED: Dextrose 5% in Water 1,000 ML IV PRN (10:35)
[2020-09-28] MEDS ORDERED: HumaLOG 300 UNITS/3 ML VIAL SC PRN (10:35)
[2020-09-28] MEDS: Dextrose 5 % And 0.9 % NaCl 1,000 ML IV SCH ×2 (10:38→22:21)
[2020-09-28] MEDS ORDERED: Pantoprazole 40 MG VIAL IVP SCH (10:45)
--- NOTE | 2020-09-28 11:53 | HP ---
CHIEF COMPLAINT: Hypotension. HISTORY OF PRESENT ILLNESS: The patient is a very nice 85-year-old female, who is very immobile, has a history of DVTs and PEs, who presents to the hospital with complaint of low blood pressure x1 day. The patient was recently discharged from the hospital on 07/2019. At this time, she had a large bowel obstruction. There were also some concerns for possible ischemic colitis, and she underwent evaluation by GI. The patient states that she was doing well. However, yesterday evening, her daughter checked her blood pressure. Her blood pressure seemed to be very low. The patient did complain of some right thigh pain. She denies any trauma. She denies any fevers or chills, any diarrhea, any abdominal pain. She states that she was feeling just fine until last night when her daughter checked her blood pressure and also she noted that her right thigh started to hurt. At this time, she was brought into the hospital. She was noted in the EMS that her blood pressures were very low. She was given some IV hydration and was admitted for further evaluation. ED COURSE: She is on chronic Coumadin for DVTs/PEs. Her INR was undetermined and her PT was greater than 150. At this time, she was given Kcentra and she was also given vitamin K in the ER. PAST MEDICAL HISTORY: 1. Heart failure, diastolic. 2. Hypertension. 3. Dyslipidemia. 4. Obesity. 5. Diabetes, type 2. 6. History of atrial fibrillation. She is on Coumadin. She has also had DVTs in the past. 7. Gout. PAST SURGICAL HISTORY: Appendectomy, cholecystectomy, hysterectomy, history of brain tumor removed. ALLERGIES: SHE HAS NO KNOWN DRUG ALLERGIES. HOME MEDICATIONS: 1. She is on Coumadin 2 mg daily. 2. Prednisone 10 mg daily. 3. DuoNeb every 4 hours as needed. 4. Toprol 50 mg daily. 5. Lasix 20 mg daily. 6. Iron 325 twice a day. 7. Clonidine 0.1 b.i.d. 8. Lipitor 40 mg at bedtime. SOCIAL HISTORY: She denies any alcohol use, drug use, or smoking history. She is a full code. I did discuss code status with her. She is currently resides at home. She is not mobile. She gets up with a Renard lift to the chair, does not ambulate. FAMILY HISTORY: Mother at age of 42. 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 Father of pneumonia and complications. REVIEW OF SYSTEMS: All negative except for the ones mentioned above in the HPI. PHYSICAL EXAMINATION: VITAL SIGNS: As of the following; temperature of 98.8, blood pressure 102/48, heart rate of 70, and she is 100% on room air. GENERAL: She is awake, alert, and oriented x3. Does not appear in distress. HEENT: Normocephalic and atraumatic. Mucous membranes are very dry. CV: S1, S2 present. No murmurs, rubs, or gallops. LUNGS: Clear to auscultation. No rhonchi or wheezes noted. ABDOMEN: Soft and nontender. Bowel sounds are present x2. EXTREMITIES: Her both bilateral feet are cold to touch. Unable to palpate the right pulse. Her right thigh has a significant amount of thickening and also pain upon palpation compared to the left thigh. SKIN: She has some cuts and bruises all over and also some upper and lower extremity edema. NEUROVASCULAR: There are no focal deficits noted. LABORATORY RESULTS: As of the following as I mentioned, PT is greater than 150, INR could not be determined. WBCs of 20.2, hemoglobin of 6.3, platelets of 643. Chemistries; sodium of 134, potassium 6.0, BUN of 37, creatinine 1.88. Lactic acid initially was 3.5, now it is 1.5. She did have a lower extremity Doppler of the right lower extremity, which indicated sequela. She does have prior DVTs. However, she has a large fluid collections in the thigh which is unclear. Possible from trauma, hematoma or abscess is about 10 cm. No acute DVT thrombosis was noted. She also had a chest x-ray done, which indicated opacification of the right hemothorax, likely from bases of posterior layering of the right pleural fluid. ASSESSMENT AND PLAN: The patient is a very pleasant 85-year-old female who presents to the hospital with complaints of right thigh pain and hypotension. 1. Sepsis. Unclear if her right thigh fluid collection could be possibly hematoma versus abscess. She does have a white count and she had lactic acidosis, most likely from the hypotension. We will start her on some Zosyn for now. I have consulted Surgery. We will transfuse her as needed. I will hold her Coumadin for now. I did discuss the risk of strokes and further pulmonary embolism and deep venous thrombosis. However, right now, we need to hold off on her Coumadin. We will check an H and H 1 hour after she received a couple units of blood. We will also recheck the PT, INR. 2. Right groin large fluid collection, unclear if this is from hematoma or abscess. She denies any falls or any trauma, could be spontaneous. We will continue to monitor. 3. Positive for fecal occult. The patient's stool was positive. The nurse did state it was very dark and tarry. We will start her on some Protonix and get a GI consult. 4. Opacification of the right lung. The patient currently is on room air. She does not appear to be in respiratory distress. She is awake, alert. We will repeat the chest x-ray to see if this could be just a layering. We will continue to monitor. 5. Hyperlipidemia. We will continue her home medications. 6. Deep venous thrombosis prophylaxis. We will put the patient on SCDs for now. Job ID: [id number]
[2020-09-28] MEDS: Piperacillin/Tazobactam 3.375 GM in Sodium Chloride 0.9% 100 ML IVPB SCH ×3 (12:54→23:15)
[2020-09-28 13:28] LABS: INR-International Normal Ratio 1.6; Prothrombin Time 19.1 sec (12.0-14.7)
--- NOTE | 2020-09-28 14:44 | CON ---
DATE OF CONSULTATION: 09/28/2020 REQUESTING PHYSICIAN: Dr. Barcenas. REASON FOR CONSULTATION: Anemia and heme-positive stool. HISTORY OF PRESENT ILLNESS: Leila Rico is an 85-year-old woman who was admitted to the hospital early this morning. She is on Coumadin for prior history of DVT and pulmonary embolus. She was recently hospitalized back in July with colonic pseudo-obstruction, which took several days to resolve. During that time, she had a flexible sigmoidoscopy for decompression with Dr. Santos on 08/08/2020 that demonstrated some ischemic ulceration at the hepatic flexure as well as some polypoid inflammatory changes of her rectal anastomosis. All of those symptoms eventually resolved and motility returned to normal. The patient had been doing pretty well over the past month. Yesterday evening she started having some pain in her right thigh. Later that evening, she noted that her blood pressure was not registering and the blood pressure continued to be low into this morning. This prompted her presentation. She was noted to have acute on chronic anemia with hemoglobin of 6.3, down from baseline of 9 to 10. FOBT was checked and was positive and nursing reports the stool does appear dark. The patient herself does not look at the stool and does not really complain of any diarrhea or abdominal pain. The patient's INR was unable to be calculated because PT was greater than 150. The patient has received vitamin K and Kcentra and was started on IV PPI. She is currently feeling pretty well. The leg pain persists. Doppler ultrasound of the right lower extremity demonstrates an indeterminate 10 cm fluid collection which may represent a hematoma. Surgery has been consulted as well. The patient has received 3 units RBC transfusion. Hemoglobin is currently 7.4. She has remained hemodynamically stable with blood pressure currently 104/50. REVIEW OF SYSTEMS: Full review of systems including constitutional, head, eyes, ears, nose, throat, GI, , cardiovascular, respiratory, musculoskeletal, neurologic systems is negative except as noted in the HPI. PAST MEDICAL HISTORY: Diastolic heart failure, hypertension, hyperlipidemia, obesity, diabetes type 2, atrial fibrillation, on Coumadin, history of DVT, gout, appendectomy, cholecystectomy, hysterectomy, rectal cancer, status post low anterior resection in the remote past, colonic pseudo-obstruction with acute right-sided colonic ischemia in July 2020, now resolved. ALLERGIES: NO KNOWN DRUG ALLERGIES. HOME MEDICATIONS: 1. Coumadin 2 mg daily. 2. Prednisone 10 mg daily. 3. DuoNeb p.r.n. 4. Toprol 50 mg daily. 5. Lasix 20 mg daily. 6. Iron 325 mg twice daily. 7. Clonidine 0.1 mg b.i.d. 8. Lipitor 40 mg at bedtime. FAMILY HISTORY: Mother at age 42 of metastatic cancer. Father of pneumonia complications. SOCIAL HISTORY: No smoking, alcohol, or drug use. She is full code status and resides at home. PHYSICAL EXAMINATION: VITAL SIGNS: Temperature 98.5, pulse 70, blood pressure is 104/50, 100% oxygen saturation on room air. GENERAL: An 85-year-old woman, lying in bed comfortably, in no acute distress. MENTAL: She is alert and fully oriented. Pleasant, conversational. SKIN: She is a bit pale. No jaundice. She has some ecchymosis to the bilateral lower extremities. HEENT: Eyes: No scleral icterus. Extraocular movements intact. ENT: Mucous membranes moist. No oral lesions. LYMPH: No submandibular or supraclavicular lymphadenopathy. THYROID: Nontender to palpation. HEART: Irregular rhythm. LUNGS: Bibasilar crackles. No respiratory distress. ABDOMEN: Nondistended, bowel sounds present. Soft and nontender to palpation throughout the abdomen. EXTREMITIES: Some thickening of the right thigh as well as pain to palpation. LABORATORY STUDIES: WBC 20.2, hemoglobin 7.4, platelets 540. D-dimer 1.6. PT was greater than 150. INR could not be calculated. Repeat PT down to 19.1, INR 1.6 following vitamin K and Kcentra administration. Sodium 135, potassium 5.3, BUN 35, creatinine 1.76, glucose 83, calcium 7.4. BNP only 90.7. Troponin 0.027. LFTs all normal with total bilirubin 0.6, alkaline phosphatase 102, AST 20, ALT 11. Urinalysis shows 11 to 20 WBCs with 4+ bacteria. IMAGING STUDIES: Chest x-ray shows opacification of right hemithorax, likely on the basis of layering pleural fluid. Lower extremity ultrasound demonstrates no evidence of DVT, but there is a large fluid collection in the right thigh measuring 10 cm, containing a fluid-fluid level. ASSESSMENT AND PLAN: 1. Acute on chronic anemia. 2. Supratherapeutic INR, being corrected now with vitamin K and Kcentra. 3. Possible melena, with dark stools and heme positivity, though the patient does take oral iron. 4. Right medial thigh fluid collection, possibly representing acute hematoma. The patient's presentation really coincides with this more acute right thigh pain and I have suspicion that in the context of supratherapeutic INR, she has developed an acute right thigh hematoma. This would do more to explain the acute hemoglobin decline than any gastrointestinal bleeding. The patient really is not having diarrhea. BUN is not elevated out of proportion to creatinine. The stool is dark, but the patient takes oral iron. The heme positivity of the stool really is not meaningful in the context of such as a supratherapeutic INR. Agree with reversing anticoagulation for now. Agree with blood transfusion as well as IV PPI for prophylaxis. We are not going to plan on any endoscopic investigation, but we will follow along closely. If it were to become apparent that the patient were having significant melena, we could potentially proceed with EGD later this admission. Thank you for the consultation. Please call anytime with questions or concerns. Job ID: [id number]
[2020-09-28 15:04] LABS: Hemoglobin 8.8 g/dL (12.0-16.0)
[2020-09-28] MEDS: Pantoprazole 40 MG VIAL IVP SCH (20:35)
[2020-09-28] MEDS: Ferrous Sulfate 325 MG TAB PO SCH (20:35)
[2020-09-28] MEDS: Atorvastatin Calcium 40 MG TAB PO SCH (20:35)
[2020-09-29 04:09] LABS: #Eosinphils 0.1 thou/uL (0.0-0.7); #Lymphocytes 1.8 thou/uL (1.20-3.40); #Monocytes 1.7 thou/uL (0.11-0.59); #Neutrophils 16.3 thou/uL (1.40-6.50); %Basophils 0.1 % (0.0-1.0); %Eosinophils 0.7 % (0.0-10.0); %Monocytes 8.5 % (0.0-10.0); %Neutrophils 81.8 % (42.0-75.0); Hemoglobin 7.9 g/dL (12.0-16.0); Mean Corpuscular HGB CONC 32.7 g/dL (32.0-36.0); Mean Corpuscular Hemoglobin 27.7 pg (27.0-31.0); Mean Corpuscular Volume 84.7 fL (78.0-98.0); Mean Platelet Volume 7.7 fL (7.4-10.4); Platelet Count 535 thou/uL (130-400); RBC Distribution Width 15.7 % (11.5-14.5); Red Blood Cell (RBC) Count 2.85 mill/uL (4.20-5.40); White Blood Cell (WBC) Count 19.9 thou/uL (4.8-10.8)
[2020-09-29 04:15] LABS: INR-International Normal Ratio 1.3; Prothrombin Time 16.6 sec (12.0-14.7)
[2020-09-29 04:42] LABS: Anion Gap 15 mmol/L (10-20); BUN (Urea Nitrogen) 36 mg/dL (9.8-20.1); Calc. Creatinine Clearance 34 mL/min (70-130); Calcium 7.4 mg/dL (7.8-10.44); Carbon Dioxide 24 mmol/L (23-31); Chloride 103 mmol/L (98-107); Estimated GFR-MDRD 26; Glucose 131 mg/dL (83-110); Potassium 4.6 mmol/L (3.5-5.1); Sodium 137 mmol/L (136-145)
[2020-09-29] MEDS: Piperacillin/Tazobactam 3.375 GM in Sodium Chloride 0.9% 100 ML IVPB SCH ×3 (05:39→20:02)
[2020-09-29] MEDS: Saccharomyces boulardii 250 MG CAP PO SCH (07:26)
[2020-09-29] MEDS: Pantoprazole 40 MG VIAL IVP SCH (07:27)
[2020-09-29] MEDS: Ferrous Sulfate 325 MG TAB PO SCH ×2 (07:27→21:18)
[2020-09-29] MEDS: Dextrose 5 % And 0.9 % NaCl 1,000 ML IV SCH (07:42)
--- NOTE | 2020-09-29 09:56 | PRG ---
DATE OF SERVICE: 09/29/2020 SUBJECTIVE: Ms. Rico is feeling pretty well today. She says her right leg feels a lot better. She has remained hemodynamically stable. She reports one bowel movement since we talked yesterday, which she did not look at. She has no other complaints. OBJECTIVE: VITAL SIGNS: Temperature 97.8, heart rate 73, blood pressure 126/96, 97% oxygen saturation on room air. GENERAL: No acute distress. HEART: Regular rate and rhythm. LUNGS: Clear to auscultation bilaterally. ABDOMEN: Nondistended. Bowel sounds present. Soft and nontender to palpation. EXTREMITIES: 1+ lower extremity edema. LABORATORY STUDIES: Initial hemoglobin was 6.3, came up to 8.8 with 2 units RBC transfusion, today is drifted slightly to 7.9. WBC is 19.9, platelets 535. INR was initially unable to be calculated with PTT greater than 150. This morning, INR down to 1.3, PT 16.6, APTT is 35. Sodium 137, potassium 4.6, BUN 36, creatinine 1.87, glucose 131. ASSESSMENT AND PLAN: 1. Acute on chronic anemia. 2. Supratherapeutic INR, now corrected after vitamin K and Kcentra administration. 3. Concern for possible melena, with dark stools and heme positivity, though the patient does take oral iron and this is likely explanation for the dark stool. 4. Right medial thigh fluid collection, possibly representing acute hematoma. I see no evidence of any significant gastrointestinal bleeding. I think more likely her acute hemoglobin decline represents spontaneous right thigh hematoma in the context of supratherapeutic INR. She responded well to initial transfusion. I see that surgery was consulted about the right thigh hematoma. Nothing further from a GI perspective. She can continue with her diet. GI will sign off, but please call anytime with questions or concerns. Job ID: [id number]
[2020-09-29 11:56] LABS: Pleural Fluid, Protein 2.7 g/dL
[2020-09-29 12:26] LABS: RBC Count-Automated (BF) Greater than 890000 /cu.mm; WBC/Nucleated-Auto (BF) 857 uL
[2020-09-29 12:47] LABS: Body Fluid Source Thoracentesis Fluid; Tube # EDTA
[2020-09-29 12:49] LABS: BF Color Red; Clarity Cloudy/Turbid (Clear)
--- NOTE | 2020-09-29 12:50 | OP ---
DATE OF PROCEDURE: 09/29/2020 PREOPERATIVE DIAGNOSIS: Opacified hemithorax, right, consistent with large effusion. POSTOPERATIVE DIAGNOSIS: Opacified hemithorax, right, consistent with large effusion. DESCRIPTION OF PROCEDURE: Following informed consent, the patient was prepped and draped in the usual fashion. The procedure was performed with her supine in bed with the head elevated approximately 45 degrees via the postero-axillary approach. Following sonography to demonstrate appropriate fluid, local anesthesia was obtained with 1% lidocaine. Thoracentesis catheter was inserted and approximately 1300 mL of serosanguineous fluid was aspirated without difficulty. Procedure was terminated when no further fluid could be aspirated. Fluid was sent for appropriate analysis. Job ID: [id number]
[2020-09-29 12:53] LABS: BF Segmented Neutrophils 18 %; Cell Count Non Hematic 43 %; Lymphocytes 37 %
--- NOTE | 2020-09-29 13:03 | RAD ---
PORTABLE CHEST: 09/29/20 PROVIDED CLINICAL HISTORY: Post thoracentesis. COMPARISON: 09/28/2020 FINDINGS: Prominent decrease/resolution of right hemithoracic opacity status post thoracentesis. No evidence fo r pneumothorax. Additional significant interval change with respect to the prior study is not apparen t. IMPRESSION: As above. POS: FERNANDA
[2020-09-29] MEDS ORDERED: Bisacodyl 5 MG TAB PO PRN (13:26)
[2020-09-29] MEDS ORDERED: Vancomycin 1 GM in Premix Bag 1 BAG IVPB SCH (13:30)
--- NOTE | 2020-09-29 13:31 | PDOC.HOSPP ---
- Subjective Encounter Date: 09/29/20 Encounter Time: 11:45 Subjective: no sob or chest pain wants cpr done if she has a chance to live has not ambulated in almost 3 yrs now lives with daughter in [facility]. - Objective Vital Signs & Weight: Vital Signs (12 hours) Temp Pulse Ox 09/29/20 11:35 98.0 F 09/29/20 08:00 99 09/29/20 07:19 97.8 F 09/29/20 03:45 97.6 F Weight Weight 223 lb Most Recent Monitor Data Heart Rate from ECG 70 NIBP 133/56 NIBP BP-Mean 81 Respiration from ECG 28 SpO2 90 I&O: 09/28/20 09/29/20 09/30/20 07:59 06:59 06:59 Intake Total Output Total 1300 Balance -1300 Result Diagrams: 09/29/20 03:43 09/29/20 03:43 Additional Labs: Accuchecks 09/29/20 09/28/20 09/28/20 10:42 20:20 16:38 POC Glucose 162 H 110 H 96 Hospitalist ROS - Medication Medications: Active Medications Generic Name Dose Route Start Last Admin Trade Name Freq PRN Reason Stop Dose Admin Atorvastatin Calcium 40 mg 09/28/20 21:00 09/28/20 20:35 Atorvastatin Calcium 40 Mg Tab PO 40 mg HS HAILEY Administration Ferrous Sulfate 325 mg 09/28/20 21:00 09/29/20 07:27 Ferrous Sulfate 325 Mg Tab PO 325 mg BID HAILEY Administration Piperacillin Sod/Tazobactam 100 mls @ 200 mls/hr 09/28/20 12:00 09/29/20 11:57 Sod 3.375 gm/ Sodium Chloride IVPB 100 mls Q6HR HAILEY Administration Saccharomyces Boulardii 250 mg 09/29/20 09:00 09/29/20 07:26 Saccharomyces Boulardii 250 Mg Cap PO 250 mg DAILY HAILEY Administration - Exam General Appearance: awake alert Eye: PERRL, anicteric sclera ENT: no oropharyngeal lesions, dry oral mucosa Neck: supple, JVD Heart: no murmur, irregular Respiratory: rales Respiratory - other findings: decreased air entry right infrascapular area Gastrointestinal: soft, non-distended, normal bowel sounds Extremities: no cyanosis, 2+ LE edema Extremities - other findings: right thigh and leg is more edematous than left, no obvious wound/discolora Neurological: cranial nerve grossly intact, no new deficit Psychiatric: normal affect, A&O x 3 Hosp A/P (1) Acute on chronic diastolic CHF (congestive heart failure) Code(s): I50.33 - ACUTE ON CHRONIC DIASTOLIC (CONGESTIVE) HEART FAILURE Status: Acute (2) Acute renal failure superimposed on stage 3 chronic kidney disease Code(s): N17.9 - ACUTE KIDNEY FAILURE, UNSPECIFIED; N18.3 - CHRONIC KIDNEY DISEASE, STAGE 3 (MODERATE) * DO NOT USE * Status: Acute (3) Sepsis Code(s): A41.9 - SEPSIS, UNSPECIFIED ORGANISM Status: Suspected Qualifiers: Sepsis type: sepsis due to unspecified organism Sepsis acute organ dysfunction status: with acute organ dysfunction Severe sepsis acute organ dysfunction type: acute renal failure Severe sepsis shock status: without septic shock (4) UTI (urinary tract infection) Status: Acute Qualifiers: Urinary tract infection type: catheter-associated UTI Indwelling urinary catheter type: indwelling urethral catheter Encounter type: subsequent encounter Qualified Code(s): T83.511D - Infection and inflammatory reaction due to indwelling urethral catheter, subsequent encounter; N39.0 - Urinary tract infection, site not specified (5) Anemia Code(s): D64.9 - ANEMIA, UNSPECIFIED Status: Chronic Qualifiers: Anemia type: unspecified type Qualified Code(s): D64.9 - Anemia, unspecified (6) Chronic anticoagulation Code(s): Z79.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 Status: Chronic (7) H/O cardiac pacemaker Code(s): Z95.0 - PRESENCE OF CARDIAC PACEMAKER Status: Chronic (8) HTN (hypertension) Code(s): I10 - ESSENTIAL (PRIMARY) HYPERTENSION Status: Chronic Qualifiers: (9) CLEMENCIA (obstructive sleep apnea) Code(s): G47.33 - OBSTRUCTIVE SLEEP APNEA (ADULT) (PEDIATRIC) Status: Chronic (10) Obesity (BMI 30-39.9) Code(s): E66.9 - OBESITY, UNSPECIFIED Status: Chronic (11) Paroxysmal atrial fibrillation Code(s): I48.0 - PAROXYSMAL ATRIAL FIBRILLATION Status: Chronic (12) Physical deconditioning Code(s): R53.81 - OTHER MALAISE Status: Chronic (13) Type 2 diabetes mellitus Status: Chronic Qualifiers: Diabetes mellitus shelter insulin use: without electronics teacher use Diabetes mellitus complication status: with kidney complications Diabetes mellitus complication detail: with chronic kidney disease Chronic kidney disease stage: stage 3 (moderate) Qualified Code(s): E11.22 - Type 2 diabetes mellitus with diabetic chronic kidney disease; N18.3 - Chronic kidney disease, stage 3 (moderate) (14) Supratherapeutic INR Code(s): R79.1 - ABNORMAL COAGULATION PROFILE Status: Resolved - Plan is on zosyn and vanc one set of blood cultures are growing enterococcus faecalis will get CT abd with oral contrast and echo, ID consult has very poor functional status/bed bound, multiple med issues, low albumin (2.0), anasarca d/w , will have thoracentesis for right side recieved kcentra and vit k for coagulopathy and suspected hematoma over right medial thigh, 2 u prbcs all on 09/28 will get usg to image the area to r/o abscess in view of sepsis continue toprol xl, protonix, lipitor and oral iron poor prognosis has h/o DVT/PE and afib as well. Not sure if she is a candidate for ivc filter Hb around 8g, creatinine around 1.8, inr is 1.3. Initial H/H was 05/17. encourage po intake discussed code status with her, she wants cpr done if there is a chance she will survive.
--- NOTE | 2020-09-29 16:19 | PDOC.GSCN ---
Surgery Consult: HPI - Consult details Date: 09/28/20 Time: 15:15 Reason for consult: other (Right thigh hematoma) History of present illness: 09/29/20 16:17 85-year-old comorbid female presented to the hospital with complaints of low blood pressure. She is well-known to this service after being evaluated for a large bowel obstruction in July. She was found to be supratherapeutic with her systemic anticoagulation. Her INR was greater than 150. During ultrasound examination of her extremities, a 10 cm fluid collection was noted in the medial aspect of the right thigh. The patient does not note any significant tenderness, and is generally unaware of there being an issue in that area. Surgery Consult: ROS - Review of Systems All systems: 10 systems reviewed and no additional complaints unless stated below. Surgery Consult: [facility] Past Medical History: Diastolic heart failure Hyperlipidemia Hypertension Diabetes type 2 Obesity Atrial fibrillation Deep vein thrombosis Gout Atonic colon (seems to be improved/resolved since last admission) Past Surgical History: Appendectomy Hysterectomy Cholecystectomy Resection of brain tumor - Past Family History Pertinent family history: negative - Past Social History Smoking Status: Never smoker Alcohol Use: none Drug Use History: none Living Situation: other (lives with family) Surgery Consult: Exam - Vital signs Vital signs: Vital Signs - Most Recent Temp Pulse Resp BP Pulse Ox 98.0 F 99 09/29/20 11:35 09/29/20 08:00 - Physical Exam General: no distress, chronically ill, obese Eye: normal ocular movement, PERRL ENT: no congestion, no hearing loss, normal mucosa, normal nares, normal pinna Respiratory: clear to auscultation, clear to percussion, normal expansion, normal respiratory effort Abdomen: soft, tender Neurologic: normal coordination Musculoskeletal: other (Mild fullness of the medial aspect of the right thigh with no tenderness to palpation.) Psychiatric: memory intact, oriented to time, oriented to person, oriented to place, speech is normal Surgery Consult: Meds - Medications Medications: Current Medications Atorvastatin Calcium (Atorvastatin Calcium 40 Mg Tab) 40 mg PO HS [facility] Last Admin: 09/28/20 20:35 Dose: 40 mg Documented by: Bisacodyl (Bisacodyl 5 Mg Tab) 10 mg PO DAILY PRN PRN Reason: Constipation Dextrose/Water (Dextrose 50% Abboject 50 Ml Syringe) 25 gm SLOW IVP PRN PRN PRN Reason: Hypoglycemia Ferrous Sulfate (Ferrous Sulfate 325 Mg Tab) 325 mg PO BID [facility] Last Admin: 09/29/20 07:27 Dose: 325 mg Documented by: Glucagon (Glucagon 1 Mg/Ml Vial) 1 mg IM PRN PRN PRN Reason: Hypoglycemia Piperacillin Sod/Tazobactam (Sod 3.375 gm/ Sodium Chloride) 100 mls @ 200 mls/hr IVPB Q6HR [facility] Last Admin: 09/29/20 11:57 Dose: 100 mls Documented by: Dextrose/Water (D5w) 1,000 mls @ 0 mls/hr IV .Q0M PRN PRN Reason: Hypoglycemia Vancomycin HCl 750 mg/ Sodium (Chloride) 250 mls @ 250 mls/hr IVPB 1400 [facility] Insulin Human Lispro (Humalog 300 Units/3 Ml Vial) 0 units SC .MILD SLIDING SCALE PRN PRN Reason: Mild Correctional Scale Metoprolol Succinate (Metoprolol Succinate Xl 50 Mg Tab) 50 mg PO DAILY [facility] Miscellaneous Medication (Pharmacy To Dose 1 Each (Vancomycin)) 1 each IVPB PRN PRN PRN Reason: Pharmacy to dose (VANC) Pantoprazole Sodium (Pantoprazole 40 Mg Tab) 40 mg PO DAILY [facility] Polyethylene Glycol (Polyethylene Glycol 3350 17 Gm Packet) 17 gm PO DAILY PRN PRN Reason: Constipation Saccharomyces Boulardii (Saccharomyces Boulardii 250 Mg Cap) 250 mg PO DAILY [facility] Last Admin: 09/29/20 07:26 Dose: 250 mg Documented by: - Allergies Allergies/Adverse Reactions: Allergies Allergy/AdvReac Type Severity Reaction Status Date / Time No Known Allergies Allergy Verified 08/04/20 20:04 Surgery Consult: Results - Labs Result Diagrams: 09/29/20 03:43 09/29/20 03:43 Lab results: Laboratory Results WBC 19.9 thou/uL (4.8-10.8) H 09/29/20 03:43 RBC 2.85 mill/uL (4.20-5.40) L 09/29/20 03:43 Hgb 7.9 g/dL (12.0-16.0) L 09/29/20 03:43 Hct 24.1 % (36.0-47.0) L 09/29/20 03:43 MCV 84.7 fL (78.0-98.0) 09/29/20 03:43 MCH 27.7 pg (27.0-31.0) 09/29/20 03:43 MCHC 32.7 g/dL (32.0-36.0) 09/29/20 03:43 RDW 15.7 % (11.5-14.5) H 09/29/20 03:43 Plt Count 535 thou/uL (130-400) H 09/29/20 03:43 MPV 7.7 fL (7.4-10.4) 09/29/20 03:43 Neutrophils % 81.8 % (42.0-75.0) H 09/29/20 03:43 Neutrophils % (Manual) 85 % (42-75) H 09/28/20 01:56 Band Neuts % (Manual) 1 % (5-11) L 09/28/20 01:56 Lymphocytes % 9.0 % (21.0-51.0) L 09/29/20 03:43 Lymphocytes % (Manual) 12 % (21-51) L 09/28/20 01:56 Monocytes % 8.5 % (0.0-10.0) 09/29/20 03:43 Monocytes % (Manual) 2 % (0-10) 09/28/20 01:56 Eosinophils % 0.7 % (0.0-10.0) 09/29/20 03:43 Basophils % 0.1 % (0.0-1.0) 09/29/20 03:43 Neutrophils # 16.3 thou/uL (1.40-6.50) H 09/29/20 03:43 Lymphocytes # 1.8 thou/uL (1.20-3.40) 09/29/20 03:43 Monocytes # 1.7 thou/uL (0.11-0.59) H 09/29/20 03:43 Eosinophils # 0.1 thou/uL (0.0-0.7) 09/29/20 03:43 Basophils # 0.0 thou/uL (0.0-0.2) 09/29/20 03:43 Plt Morphology Comment Appears Increased H 09/28/20 01:56 Ovalocytes MARKED = >16 cells (100X) (0-1/hpf) H 09/28/20 01:56 Acanthocytes (Spur) SLIGHT = 1-5 cells (100X) (None Seen) 09/28/20 01:56 PT 16.6 sec (12.0-14.7) H 09/29/20 03:43 INR 1.3 09/29/20 03:43 APTT 35.0 sec (22.9-36.1) 09/29/20 03:43 D-Dimer 1.60 *mcg/mL (0.27-0.43) H 09/28/20 02:25 Sodium 137 mmol/L (136-145) 09/29/20 03:43 Potassium 4.6 mmol/L (3.5-5.1) 09/29/20 03:43 Chloride 103 mmol/L (98-107) 09/29/20 03:43 Carbon Dioxide 24 mmol/L (23-31) 09/29/20 03:43 Anion Gap 15 mmol/L (-) 09/29/20 03:43 BUN 36 mg/dL (9.8-20.1) H 09/29/20 03:43 Creatinine 1.87 mg/dL (0.6-1.1) H 09/29/20 03:43 Estimated GFR (MDRD) 26 09/29/20 03:43 Glucose 131 mg/dL (83-110) H 09/29/20 03:43 POC Glucose 124 mg/dL (70-100) H 09/29/20 16:07 Lactic Acid 1.5 mmol/L (0.5-2.2) 09/28/20 06:21 Calcium 7.4 mg/dL (7.8-10.44) L 09/29/20 03:43 Total Bilirubin 0.6 mg/dL (0.2-1.2) 09/28/20 01:56 AST 20 U/L (5-34) 09/28/20 01:56 ALT 11 U/L (8-55) 09/28/20 01:56 Alkaline Phosphatase 102 U/L (40-110) 09/28/20 01:56 Troponin I 0.027 ng/mL (< 0.028) 09/28/20 01:56 B-Natriuretic Peptide 90.7 pg/mL (0-100) 09/28/20 01:56 Serum Total Protein 5.4 g/dL (6.0-8.3) L 09/28/20 01:56 Albumin 2.0 g/dL (3.4-4.8) L 09/28/20 01:56 Globulin 3.4 g/dL (2.4-3.5) 09/28/20 01:56 Albumin/Globulin Ratio 0.6 g/dL (1.2-2.2) L 09/28/20 01:56 Urine Color Brown (Yellow) A 09/28/20 06:50 Urine Clarity Turbid (Clear) A 09/28/20 06:50 Urine pH 5.0 (5.0-9.0) 09/28/20 06:50 Ur Specific [place] 1.025 (1.005-1.030) 09/28/20 06:50 Urine Protein Negative mg/dL (Neg-Trace) 09/28/20 06:50 Urine Glucose (UA) Negative mg/dL (Negative) 09/28/20 06:50 Urine Ketones Trace mg/dL (Negative) A 09/28/20 06:50 Urine Blood Large (Negative) A 09/28/20 06:50 Urine Nitrite Negative (Negative) 09/28/20 06:50 Urine Bilirubin Unable to Interpret (Negative) 09/28/20 06:50 Urine Urobilinogen 1.0 mg/dL (Less than 2) 09/28/20 06:50 Ur Leukocyte Esterase Moderate (Negative) H 09/28/20 06:50 Urine RBC 7-10 HPF (0-3) A 09/28/20 06:50 Urine WBC 11-20 HPF (0-3) A 09/28/20 06:50 Ur Squamous Epith Cells 4-6 HPF (0-3) A 09/28/20 06:50 Amorphous Crystals 4+ HPF (None Seen) A 09/28/20 06:50 Urine Bacteria 4+ HPF (None Seen) A 09/28/20 06:50 Fluid Source Thoracentesis Fluid 09/29/20 11:27 Fluid Tube Number EDTA 09/29/20 11:27 Fluid Color Red 09/29/20 11:27 Fluid Clarity Cloudy/Turbid (Clear) H 09/29/20 11:27 Fluid WBC (Auto) 857 uL 09/29/20 11:27 Fluid RBC (Auto) Greater than [id number] /cu.mm 09/29/20 11:27 Fluid Seg Neutrophil % 18 % 09/29/20 11:27 Fluid Lymphocytes % 37 % 09/29/20 11:27 Fluid Basophils % 2 % 09/29/20 11:27 Non-Hematological % 43 % 09/29/20 11:27 Fluid Comment Note: 09/29/20 11:27 Pleural Total Protein 2.7 g/dL 09/29/20 11:27 Pleural LDH 263 U/L (Not Available) 09/29/20 11:27 Pleural Glucose 152 mg/dL 09/29/20 11:27 Blood Type B POSITIVE 09/28/20 03:50 Antibody Screen NEGATIVE 09/28/20 03:50 Crossmatch See Detail 09/28/20 03:50 - Radiology Interpretation US - venous Additional comments: Ultrasound reviewed as well as the radiologist interpretation. There is no definitive evidence of deep vein thrombosis. 10 cm fluid collection in the medial aspect of the right thigh. Surgery Consult: A/P - Problem (1) Decubitus ulcer Current Visit: Yes Code(s): L89.90 - PRESSURE ULCER OF UNSPECIFIED SITE, UNSPECIFIED STAGE Status: Acute Qualifiers: Pressure injury location: contiguous region involving buttock and hip - Plan Plan: The fluid collection in her medial right thigh is likely hematoma secondary to her supratherapeutic anticoagulation. Unlikely to be the source of the patient's systemic inflammatory response given that she has bacteremia. No surgical intervention planned at this time. Please call for any further questions.
[2020-09-29] MEDS: Vancomycin HCl 750 MG in Sodium Chloride 0.9% 250 ML 250 ML IVPB SCH (16:59)
--- NOTE | 2020-09-29 17:28 | ULT ---
EXAM: US Soft Tissue Other DATE: 09/29/2020 12:00 AM INDICATION: Right medial thigh hematoma or abscess COMPARISON: None. FINDING: There is subcutaneous edema seen within the region of concern at the right medial thigh. No overt drainable fluid collection is evident within this region. IMPRESSION:Subcutaneous edema of the medial right thigh.
--- NOTE | 2020-09-29 18:26 | CT ---
CT OF THE ABDOMEN AND PELVIS WITHOUT IV CONTRAST INDICATION: History of bacteremia and sepsis COMPARISON: CT abdomen pelvis without contrast dated August 04, 2020 FINDINGS: The lack of IV contrast limits evaluation of the solid organs of the abdomen and pelvis. ABDOMEN: Lung bases: There is persistent small right and tiny left pleural effusion. There is subsegmental ate lectasis within the right lower lobe. There is hazy airspace opacity in the right lower lobe. Liver: There are calcified granuloma within the liver. Gallbladder: Surgically absent Pancreas: The cystic abnormality along the pancreatic body slightly smaller now measuring 2.4 cm were previously measured 3 cm. Adrenal glands: Normal. Spleen: Normal. Kidneys and ureters: Normal. No hydronephrosis. Vasculature: There are severe vascular calcifications seen involving the visualized vasculature. Lymph nodes:No lymphadenopathy. Free fluid in abdomen:No free fluid is evident. PELVIS: Small and large bowel: There is a colorectal anastomosis seen within the lower pelvis. There is a per sistent fluid and gas leak surrounding the anastomotic suture line on the left on image 76 of series 3 that is enlarged measuring 5.6 x 3.6 cm. There is diffuse wall thickening involving the sigm oid colon, descending colon and distal transverse colon. Appendix:Surgically absent Bladder: Decompressed with a Elliott catheter Rectal and perirectal soft tissues:As above Reproductive structures: Surgically absent Free fluid in pelvis: Mild free fluid Lymphadenopathy pelvis: No lymphadenopathy is evident. Osseous structures: No acute osseous abnormality. No destructive osteolytic or osteoblastic lesion i s identified. There is scattered degenerative and osteoarthritic changes. Soft tissues:There is a peripherally enhancing mildly hyperdense collection seen within the medial so ft tissues of the right thigh suspicious for a right soft tissues by intramuscular hematoma. This measures 13.8 x 8.5 cm. There is diffuse anasarca IMPRESSION: 1. Findings suspicious for right lower lobe pneumonia. 2. Worsening perianastomotic leak with fluid and gas extending into the pelvis near the colorectal ju nction. Surgical consultation is recommended. 3. Large peripherally enhancing intramuscular hematoma the medial right thigh. 4. Persistent small bilateral pleural effusions and diffuse anasarca. 5. Cystic abnormality pancreatic body is slightly smaller may reflect slowly resolving pseudocyst. Co ntinued CT follow-up is recommended.
[2020-09-29] MEDS: Atorvastatin Calcium 40 MG TAB PO SCH (21:18)
[2020-09-30 00:13] LABS: SARS-CoV-2 MS2 Positive; SARS-CoV-2 N Gene Negative; SARS-CoV-2 S Gene Negative; SARS-CoV-2 by NAA Not Detected (Not Detected); SARS-CoV-2 orf1ab Negative
[2020-09-30] MEDS: Piperacillin/Tazobactam 3.375 GM in Sodium Chloride 0.9% 100 ML IVPB SCH ×4 (03:00→21:00)
--- NOTE | 2020-09-30 05:58 | OP ---
DATE OF PROCEDURE: 09/29/2020 ADDENDUM: Post thoracentesis x-ray demonstrates complete evacuation of the right pleural fluid. There is good underlying lung expansion without obvious mass or consolidation. No pneumothorax is seen. Pleural fluid studies show white count 850, red cell count of 890,000 with a differential of 18 neutrophils, 37 lymphocytes, and 43% macrophages and endothelial cells. Protein is 2.7, glucose is 152, and LDH is 263. These are consistent with an exudate. Job ID: [id number]
--- NOTE | 2020-09-30 06:25 | CON ---
DATE OF CONSULTATION: CHIEF COMPLAINT: Abnormal x-ray with probable right pleural effusion. HISTORY OF PRESENT ILLNESS: Ms. 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 She states that she has her INRs checked approximately every 3 weeks. She is basically immobile at home and gets out of bed using a Renard lift only twice daily. She presented to the hospital with low blood pressure. She also was noted to have a large hematoma of the left thigh. In the emergency room, she was found to have leukocytosis. She was anemic with hemoglobin 6.3, and had marked elevation in her coagulation studies including an initial Pro-Time greater than 150 seconds. She received vitamin K and reportedly received Kcentra. She received transfusion of 2 units packed cells. Hemodynamically, she has been stable and her coagulation status has nearly corrected with INR of 1.3. Her chest x-ray shows significant opacification of the right hemithorax consistent with large right pleural effusion. Pulmonary Service is consulted. The patient surprisingly denies symptoms of shortness of breath, although this may be related to her poor functional capacity. She denies PND or orthopnea. She denies chest pain. She has not had cough, sputum, or hemoptysis. She denies any weight loss. She is a lifelong nonsmoker, although did have secondhand smoke in the past. SOCIAL HISTORY: The patient is an 85-year-old female. She is originally from [place] and has lived multiple places in both [place] and in [place]. She has been here in this area for several years, and was formerly seen by Dr. Talavera. ALLERGIES: SHE HAS NO MEDICATION ALLERGIES. HOME MEDICATIONS: Include; 1. Coumadin 2 mg daily. 2. Prednisone 10 daily. 3. DuoNeb p.r.n. 4. Toprol 50 daily. 5. Lasix 20 daily. 6. Iron b.i.d. 7. Clonidine 0.1 b.i.d. 8. Lipitor at bedtime. PAST MEDICAL HISTORY: Remarkable for hypertension as well as a history of previous DVT and pulmonary emboli. She also has history of atrial fibrillation. PAST SURGICAL HISTORY: Remarkable for appendectomy, cholecystectomy, hysterectomy, and remote brain tumor. REVIEW OF SYSTEMS: Remarkable as above. PHYSICAL EXAMINATION: VITAL SIGNS: Blood pressure 112/54, heart rate is 70, respiratory rate 26, and saturation 97%. She is afebrile, weight is 232 pounds with BMI of 35. GENERAL: She is awake, alert, pleasant, but unable to sit up on the side of the bed. HEENT: Shows no JVD or adenopathy. LUNGS: Showed decreased breath sounds with dullness in the right hemithorax. Left lung is clear. HEART: Irregular. ABDOMEN: Soft, obese without organomegaly. EXTREMITIES: She has edema of her lower extremities. Thighs are quite edematous. I cannot feel a specific mass. LABORATORY DATA: Chest x-ray shows opacification on the right, consistent with layering of effusion. PT and INR are as above. White count initially 21,000 with hemoglobin 6.3, platelet count 643,000. Following transfusion, she is up to 8.8. Chemistries include sodium 137, potassium 4.6, chloride 103, CO2 is 22, BUN 36, and creatinine 1.9. IMPRESSION: 1. Left pleural effusion, probably secondary to over anticoagulation and possible hemothorax. We do not know her cardiac status with regard to possible heart failure. She has not smoked, but did have secondary smoke exposure and hence malignancy cannot be excluded, although previous chest x-ray not that long ago did not show an obvious mass. 2. Marked hyper-anticoagulable state due to Coumadin. 3. History of atrial fibrillation. 4. Anemia probably secondary to the hematoma in her thigh. 5. Morbid obesity. PLAN: I reviewed the radiographic findings with her. I think that thoracentesis is indicated for both diagnostic and therapeutic reasons. Hopefully, it is not an absolute hemothorax, but rather mild blood loss. If appropriate, a chest tube would be required. We will do a thoracentesis and send fluid for appropriate analysis. Thank you for this consultation. Job ID: [id number] [facility]
[2020-09-30] MEDS: Ferrous Sulfate 325 MG TAB PO SCH (08:15)
[2020-09-30] MEDS: Saccharomyces boulardii 250 MG CAP PO SCH (08:15)
[2020-09-30 08:52] LABS: #Eosinphils 0.2 thou/uL (0.0-0.7); #Lymphocytes 1.2 thou/uL (1.20-3.40); #Monocytes 1.1 thou/uL (0.11-0.59); #Neutrophils 14.9 thou/uL (1.40-6.50); %Eosinophils 1.4 % (0.0-10.0); %Lymphocytes 6.6 % (21.0-51.0); %Monocytes 6.4 % (0.0-10.0); %Neutrophils 85.6 % (42.0-75.0); Hemoglobin 8.3 g/dL (12.0-16.0); Mean Corpuscular HGB CONC 31.7 g/dL (32.0-36.0); Mean Corpuscular Hemoglobin 27.8 pg (27.0-31.0); Mean Corpuscular Volume 87.7 fL (78.0-98.0); Mean Platelet Volume 7.5 fL (7.4-10.4); Platelet Count 578 thou/uL (130-400); Red Blood Cell (RBC) Count 2.98 mill/uL (4.20-5.40); White Blood Cell (WBC) Count 17.4 thou/uL (4.8-10.8)
[2020-09-30 09:25] LABS: ALT (SGPT) 9 U/L (8-55); AST (SGOT) 16 U/L (5-34); Albumin 1.9 g/dL (3.4-4.8); Alkaline Phosphatase 87 U/L (40-110); Anion Gap 14 mmol/L (10-20); BUN (Urea Nitrogen) 32 mg/dL (9.8-20.1); Bilirubin, Total 0.8 mg/dL (0.2-1.2); Calc. Creatinine Clearance 41 mL/min (70-130); Calcium 7.4 mg/dL (7.8-10.44); Carbon Dioxide 22 mmol/L (23-31); Chloride 105 mmol/L (98-107); Estimated GFR-MDRD 30; Globulin 3.2 g/dL (2.4-3.5); Glucose 122 mg/dL (83-110); Protein, Total 5.1 g/dL (6.0-8.3); Sodium 137 mmol/L (136-145)
[2020-09-30] MEDS: Vancomycin HCl 750 MG in Sodium Chloride 0.9% 250 ML 250 ML IVPB SCH (14:19)
--- NOTE | 2020-09-30 15:54 | PDOC.HOSPP ---
- Subjective Encounter Date: 09/30/20 Encounter Time: 15:56 Subjective: Patient seen and examined for sepsis with anemia and coagulopathy. No new complaints. Denies any nausea or vomiting. - Objective Vital Signs & Weight: Vital Signs (12 hours) Temp Pulse Resp BP Pulse Ox 09/30/20 08:22 97 09/30/20 08:13 140/74 09/30/20 07:19 98.3 F 69 20 172/80 H 97 09/30/20 05:23 97.9 F 69 18 112/59 L 97 Weight Weight 227 lb 6.4 oz Most Recent Monitor Data Heart Rate from ECG 70 NIBP 133/56 NIBP BP-Mean 81 Respiration from ECG 28 SpO2 90 I&O: 09/29/20 09/30/20 10/01/20 06:59 06:59 06:59 Intake Total Output Total 1300 Balance -1300 Result Diagrams: 09/30/20 08:11 09/30/20 08:11 Additional Labs: Accuchecks 09/29/20 09/29/20 21:25 16:07 POC Glucose 95 124 H Radiology Reviewed by me: Yes (CT abdomenpneumonia with ?perianastomotic leak) Hospitalist ROS - Review of Systems Cardiovascular: denies: chest pain, palpitations, orthopnea, paroxysmal noc. dyspnea, edema, light headedness, other Gastrointestinal: denies: nausea, vomiting, abdominal pain, diarrhea, constipation, melena, hematochezia, other - Medication Medications: Active Medications Generic Name Dose Route Start Last Admin Trade Name Freq PRN Reason Stop Dose Admin Atorvastatin Calcium 40 mg 09/28/20 21:00 09/29/20 21:18 Atorvastatin Calcium 40 Mg Tab PO 40 mg HS HAILEY Administration Ferrous Sulfate 325 mg 09/28/20 21:00 09/30/20 08:15 Ferrous Sulfate 325 Mg Tab PO 325 mg BID HAILEY Administration Vancomycin HCl 750 mg/ Sodium 250 mls @ 250 mls/hr 09/29/20 14:00 09/30/20 14:19 Chloride IVPB 250 mls 1400 HAILEY Administration Piperacillin Sod/Tazobactam 100 mls @ 200 mls/hr 09/30/20 02:00 09/30/20 14:19 Sod 3.375 gm/ Sodium Chloride IVPB 100 mls 0200,0800,1400,2000 HAILEY Administration Metoprolol Succinate 50 mg 09/30/20 09:00 09/30/20 08:14 Metoprolol Succinate Xl 50 Mg Tab PO 50 mg DAILY HAILEY Administration Pantoprazole Sodium 40 mg 09/30/20 09:00 09/30/20 08:15 Pantoprazole 40 Mg Tab PO 40 mg DAILY HAILEY Administration Saccharomyces Boulardii 250 mg 09/29/20 09:00 09/30/20 08:15 Saccharomyces Boulardii 250 Mg Cap PO 250 mg DAILY HAILEY Administration - Exam General Appearance: ill appearing Heart: RRR, no gallops, no rubs, normal peripheral pulses Respiratory: no wheezes, no rales, rhonchi Respiratory - other findings: Decreased air entry at bases Gastrointestinal: soft, normal bowel sounds, no guarding, no rigidity Extremities: no cyanosis, no clubbing Hosp A/P - Plan DVT proph w/SCDs Severe sepsis with coagulopathy Enterococcus faecalis bacteremia ? Colorectal anastomotic leak Right-sided pleural effusion suspected hemothorax ? Right lower lobe pneumonia on the CTsuspected gram-negative Acute blood loss anemia s/p PRBC this admission Acute kidney injury on CKD stage II Right medial thigh hematoma due to coagulopathy Hyperkalemia/hyponatremia Chronic diastolic heart failure Hypertension Dyslipidemia History of atrial fibrillation/DVT Gout Obesity with a BMI 35.7 Plan: Will continue vancomycin with Zosyn. Will make the patient n.p.o. Continue sliding scale. Start gentle IV hydration while n.p.o. Check a.m. labs including lactic acid. Will continue central line for now for possible decompensation tonight. Case discussed with general surgery. Continue Toprol- XL. Close monitoring.
--- NOTE | 2020-09-30 17:01 | CON ---
DATE OF CONSULTATION: 09/30/2020 REASON FOR CONSULTATION: Bacteremia. HISTORY OF PRESENT ILLNESS: An 85-year-old, who has had quite a few admissions in this hospital since 2012. She has a history of type 2 diabetes, hypertension, atrial fibrillation on warfarin and invasive colon adenocarcinoma. This was diagnosed in 2012 and she had a rectosigmoid resection with colorectal anastomosis and diverting ileostomy in June 2013. The cancer was a T2 N0 M0 stage and most of her prior admissions were related to either complications of atrial fibrillation or bronchitis. She had a one episode of pneumonia and then, the last one was in July, which basically was a large bowel obstruction and there was marked colonic distention with cecum measuring nearly 8 cm associated gas and fluid filled distention of some small bowel loops were noted. The patient had a right and left small pleural effusions and bibasilar lung changes and there is marked gaseous distention of the colon with transition into somewhat more normal caliber sigmoid. There was an anastomotic suture line in the rectum region. There was some mild fluid-filled gaseous distention of the small bowel loops. There was air present within the vagina, which was directly adjacent to the anastomotic suture line, so the radiologist was concerned with the possibility of a small fistulous connection that had developed. There was also some perirectal fat stranding in that area. Currently, Ms. Rico is lying in bed. She is quite bright, answers are very sharp and prompt. No difficulty in finding words. Denies any headaches. No sore throat, odynophagia, or dysphagia. No back pain. No dyspnea or chest pain. No cough. No abdominal pain. She is voiding with a Elliott catheter and she has moderate pain in the right medial thigh. She has those lesions in the skin in the left and right forearm segments, one is kind of a dark necrotic scab and nodular shaped about 1.5 cm with some erythema around in the skin and the contralateral lesion is much smaller or it is a 0.4 cm more like dark purpuric in color and kind of merges with the skin that turns into an erythematous bruising collar. The patient has a peripheral IV access. She has had bowel movements without difficulty. PAST MEDICAL HISTORY: Includes diastolic CHF, pacemaker, atrial fibrillation on warfarin, hypertension, obesity, type 2 diabetes, colorectal cancer with low anterior abdominal resection in 2012 and protective ileostomy, this was taken down. History of gout, bronchitis, prior pneumonia, recent episode of colon cancer with a T2 N0 M0 type. No lymph nodes found involved and resected in remission. PAST SURGICAL HISTORY: Includes cholecystectomy, hysterectomy, low anterior abdominal resection of colorectal cancer with reanastomosis and protective ileostomy, and brain tumor removed. ALLERGIES: NONE. FAMILY HISTORY: Noncontributory. SOCIAL HISTORY: Never smoker. She lives at home. She has very limited functional capacity. She is unable to ambulate and pretty much stays in the recliner all day long and in bed. MEDICATIONS LIST: 1. Lipitor. 2. Dulcolax. 3. Warfarin. 4. Toprol. 5. Protonix. 6. Zosyn. 7. Vancomycin. PHYSICAL EXAMINATION: VITAL SIGNS: T-max 98.3, BP 140/70, heart rate 69, respirations 20, and O2 saturation 97. SKIN: Shows those lesions in the forearms as described above. She has a small area of laceration in the umbilical region and peripheral IV access. Elliott catheter. GENERAL: She appears chronically ill. HEENT: Ocular movements are conjugate. Somewhat pale conjunctivae. Oral cavity with no [place] teeth remaining. Oral mucosa normal. NECK: Supple. No jugular vein distention. No neck tenderness. No back tenderness. LUNGS: Symmetric air entry. Diminished breath sounds on the right side. HEART: S1 and S2. Regular rate. ABDOMEN: Soft, not distended. No tenderness. The abdomen has a quite prominent panniculus. No ascites noted. No organomegaly. EXTREMITIES: She has tenderness in the right medial thigh and she has osteoarthrosis in knees and ankles. She is able to move extremities, but is diffusely weak. Some edema. Pulses 1+ in dorsalis pedis. NEUROLOGIC: She is awake, oriented, and very sharp. LABORATORY STUDIES: Urinalysis 11 to 20 wbc's. The WBC count is down from 21 to 17.4, hemoglobin 8.3, and platelets is at 578. She has 85% neutrophils. INR is 1.3. Sodium 137, creatinine 1.65, and calcium was 7.4. Liver profile normal. Albumin 1.9. She had a thoracentesis and the fluid showed greater than 890,000 rbc's, 857 wbc's, neutrophils 18%, and lymphocytes at 37%. SARS-CoV was not detected. Repeat echocardiogram with EF 50% to 55% and mild valvular abnormalities noted. The patient had a repeat abdomen and pelvis CT scan, which showed suspicion for right lower lobe pneumonia, worsening perianastomotic leak with fluid and gas extending into the pelvis near the colorectal junction. This was compared with the previous evaluation, who had enlarged measuring 5.6 x 3.6 cm with diffuse wall thickening involving the sigmoid colon, descending colon, and distal transverse colon. There was also an intramuscular hematoma in the medial right thigh. ASSESSMENT: 1. Hypertension, cardiomyopathy, pacemaker, atrial fibrillation on warfarin, skin lesions in forearms, previous colorectal cancer status post anterior abdominal resection and ileostomy with takedown in remission. 2. Hypotension with Enterococcus faecalis bacteremia 1 out of 2 samples. 3. 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 DISCUSSION: The primary reason for the admission is the bacteremia associated with sepsis and hypotension. This seems to be originating from the perirectal tissues with anastomotic leak. 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 In addition to that, she has those two lesions, which could be related to the warfarin. They are localized to the subcutaneous areas in the right and left forearm and they have a hemorrhagic characteristics. The hematoma in the right medial thigh seems to be unrelated to the bacteremia, although it might become secondarily colonized and turn into an abscess, but that is not necessarily true, particularly in the face of Enterococcus faecalis bacteremia. It is more commonly seen with Staphylococcus aureus. At this point, we need to clarify this possible anastomotic leak with inflammatory process in the perirectal area. I think the next step would be a contrast study with maybe intrarectal administration of contrast, but this would have to be discussed with radiologist. Discontinue vancomycin and continue Zosyn alone. Job ID: [id number]
[2020-09-30] MEDS: Dextrose 5 %-0.45 % NaCl 1,000 ML IV SCH (18:12)
[2020-09-30] MEDS: Atorvastatin Calcium 40 MG TAB PO SCH (21:44)
[2020-10-01] MEDS: Piperacillin/Tazobactam 3.375 GM in Sodium Chloride 0.9% 100 ML IVPB SCH ×4 (02:40→21:36)
[2020-10-01] MEDS: Dextrose 5 %-0.45 % NaCl 1,000 ML IV SCH ×2 (05:09→16:46)
[2020-10-01 05:12] LABS: Lactic Acid 1.2 mmol/L (0.5-2.2)
[2020-10-01 05:16] LABS: ALT (SGPT) 13 U/L (8-55); AST (SGOT) 17 U/L (5-34); Albumin 1.6 g/dL (3.4-4.8); Alkaline Phosphatase 75 U/L (40-110); Anion Gap 13 mmol/L (10-20); BUN (Urea Nitrogen) 28 mg/dL (9.8-20.1); Bilirubin, Total 0.8 mg/dL (0.2-1.2); Calc. Creatinine Clearance 44 mL/min (70-130); Calcium 7.3 mg/dL (7.8-10.44); Carbon Dioxide 23 mmol/L (23-31); Chloride 106 mmol/L (98-107); Estimated GFR-MDRD 34; Globulin 3.1 g/dL (2.4-3.5); Glucose 90 mg/dL (83-110); Magnesium 1.3 mg/dL (1.6-2.6); Potassium 3.6 mmol/L (3.5-5.1); Protein, Total 4.7 g/dL (6.0-8.3); Sodium 138 mmol/L (136-145)
[2020-10-01 05:27] LABS: #Eosinphils 0.5 thou/uL (0.0-0.7); #Lymphocytes 1.2 thou/uL (1.20-3.40); #Monocytes 1.2 thou/uL (0.11-0.59); #Neutrophils 9.9 thou/uL (1.40-6.50); %Basophils 0.1 % (0.0-1.0); %Eosinophils 3.8 % (0.0-10.0); %Lymphocytes 9.6 % (21.0-51.0); %Monocytes 9.2 % (0.0-10.0); %Neutrophils 77.3 % (42.0-75.0); Hemoglobin 7.3 g/dL (12.0-16.0); Mean Corpuscular HGB CONC 32.6 g/dL (32.0-36.0); Mean Corpuscular Hemoglobin 28.5 pg (27.0-31.0); Mean Corpuscular Volume 87.6 fL (78.0-98.0); Mean Platelet Volume 7.6 fL (7.4-10.4); Platelet Count 491 thou/uL (130-400); RBC Distribution Width 16.4 % (11.5-14.5); Red Blood Cell (RBC) Count 2.56 mill/uL (4.20-5.40); White Blood Cell (WBC) Count 12.8 thou/uL (4.8-10.8)
[2020-10-01] MEDS: Saccharomyces boulardii 250 MG CAP PO SCH (09:02)
[2020-10-01 11:50] VITALS: BMI 34.7
--- NOTE | 2020-10-01 12:38 | PRG ---
DATE OF SERVICE: 10/01/2020 SUBJECTIVE: An 85-year-old female, who underwent a thoracentesis two days ago, I feel it was a transudate. Cytology negative. She is doing well. No coughing. No chest pain. OBJECTIVE: VITAL SIGNS: Stable. Room air saturations are 95%, pulse 80, respiratory rate 18, and blood pressure 130/80. CHEST: No wheezing. No crackles. CARDIAC: Normal S1 and S2. No gallops. ABDOMEN: No masses. LABORATORY DATA: Shows a creatinine is elevated at 1.47. She had an Enterococcus faecalis in a central line, could be contamination. ASSESSMENT: Right pleural effusion, transudate, no evidence of recurrence at this stage. Morbid obesity, sepsis syndrome, and abnormal CT of the abdomen suggesting perianastomotic leak in the pelvic area. Infectious Disease being consulted. PLAN: Baseline chest x-ray being ordered. Continue antibiotics as outlined. Repeat chest x-ray in the morning. Job ID: [id number]
--- NOTE | 2020-10-01 14:56 | PDOC.HOSPP ---
- Subjective Encounter Date: 10/01/20 Encounter Time: 09:40 Subjective: no abd pain or sob feels better daughter at bedside - Objective Vital Signs & Weight: Vital Signs (12 hours) Temp Pulse Resp BP Pulse Ox 10/01/20 07:08 97.9 F 69 18 135/77 99 Weight Admit Weight 217 lb 11.2 oz Weight 220 lb 15.58 oz Most Recent Monitor Data Heart Rate from ECG 70 NIBP 133/56 NIBP BP-Mean 81 Respiration from ECG 28 SpO2 90 I&O: 09/30/20 10/01/20 10/02/20 06:59 06:59 06:59 Intake Total 1550 Output Total 1300 650 Balance -1300 900 Result Diagrams: 10/01/20 04:25 10/01/20 04:25 Additional Labs: Accuchecks 10/01/20 10/01/20 09/30/20 11:33 04:27 23:33 POC Glucose 89 83 94 09/30/20 09/30/20 09/30/20 21:27 16:04 11:19 POC Glucose 102 H 121 H 81 Hospitalist ROS - Medication Medications: Active Medications Generic Name Dose Route Start Last Admin Trade Name Freq PRN Reason Stop Dose Admin Atorvastatin Calcium 40 mg 09/28/20 21:00 09/30/20 21:44 Atorvastatin Calcium 40 Mg Tab PO 40 mg HS HAILEY Administration Piperacillin Sod/Tazobactam 100 mls @ 200 mls/hr 09/30/20 02:00 10/01/20 09:02 Sod 3.375 gm/ Sodium Chloride IVPB 100 mls 0200,0800,1400,2000 HAILEY Administration Dextrose/Sodium Chloride 1,000 mls @ 75 mls/hr 09/30/20 16:30 10/01/20 05:09 D5 1/2 Ns IV Not Given .[id number] HAILEY Metoprolol Succinate 50 mg 09/30/20 09:00 10/01/20 09:02 Metoprolol Succinate Xl 50 Mg Tab PO 50 mg DAILY HAILEY Administration Pantoprazole Sodium 40 mg 09/30/20 09:00 10/01/20 09:02 Pantoprazole 40 Mg Tab PO 40 mg DAILY HAILEY Administration Saccharomyces Boulardii 250 mg 09/29/20 09:00 10/01/20 09:02 Saccharomyces Boulardii 250 Mg Cap PO 250 mg DAILY HAILEY Administration - Exam General Appearance: awake alert Eye: PERRL, anicteric sclera ENT: no oropharyngeal lesions, moist mucosa Neck: supple, no JVD Heart: RRR, no murmur Respiratory: no wheezes, no rales Gastrointestinal: soft, non-tender, non-distended, normal bowel sounds Extremities: no cyanosis, 1+ LE edema Neurological: cranial nerve grossly intact, no focal deficits Psychiatric: A&O x 3 Hosp A/P (1) Bacteremia Code(s): R78.81 - BACTEREMIA Status: Acute (2) Sepsis Code(s): A41.9 - SEPSIS, UNSPECIFIED ORGANISM Status: Acute Qualifiers: Sepsis type: sepsis due to unspecified organism Sepsis acute organ dysfunction status: with acute organ dysfunction Severe sepsis acute organ dysfunction type: acute renal failure Severe sepsis shock status: without septic shock (3) Acute on chronic diastolic CHF (congestive heart failure) Code(s): I50.33 - ACUTE ON CHRONIC DIASTOLIC (CONGESTIVE) HEART FAILURE Status: Acute (4) Acute renal failure superimposed on stage 3 chronic kidney disease Code(s): N17.9 - ACUTE KIDNEY FAILURE, UNSPECIFIED; N18.3 - CHRONIC KIDNEY DISE ASE, STAGE 3 (MODERATE) * DO NOT USE * Status: Acute (5) UTI (urinary tract infection) Status: Acute Qualifiers: Urinary tract infection type: catheter-associated UTI Indwelling urinary catheter type: indwelling urethral catheter Encounter type: subsequent encounter Qualified Code(s): T83.511D - Infection and inflammatory reaction due to indwelling urethral catheter, subsequent encounter; N39.0 - Urinary tract infection, site not specified (6) Anemia Code(s): D64.9 - ANEMIA, UNSPECIFIED Status: Chronic Qualifiers: Anemia type: unspecified type Qualified Code(s): D64.9 - Anemia, unspe cified (7) Chronic anticoagulation Code(s): Z79.01 - LONGTERM (CURRENT) USE OF ANTICOAGULANTS Status: Chronic (8) H/O cardiac pacemaker Code(s): Z95.0 - PRESENCE OF CARDIAC PACEMAKER Status: Chronic (9) HTN (hypertension) Code(s): I10 - ESSENTIAL (PRIMARY) HYPERTENSION Status: Chronic Qualifiers: (10) CLEMENCIA (obstructive sleep apnea) Code(s): G47.33 - OBSTRUCTIVE SLEEP APNEA (ADULT) (PEDIATRIC) Status: Chronic (11) Obesity (BMI 30-39.9) Code(s): E66.9 - OBESITY, UNSPECIFIED Status: Chronic (12) Paroxysmal atrial fibrillation Code(s): I48.0 - PAROXYSMAL ATRIAL FIBRILLATION Status: Chronic (13) Physical deconditioning Code(s): R53.81 - OTHER MALAISE Status: Chronic (14) Type 2 diabetes mellitus Status: Chronic Qualifiers: Diabetes mellitus exterminator helper termite insulin use: without exterminator helper termite use Diabetes mellitus complication status: with kidney complications Diabetes mellitus complication detail: with chronic kidney disease Chronic kidney disease stage: stage 3 (moderate) Qualified Code(s): E11.22 - Type 2 diabetes mellitus with diabetic chronic kidney disease; N18.3 - Chronic kidney disease, stage 3 (moderate) (15) Supratherapeutic INR Code(s): R79.1 - ABNORMAL COAGULATION PROFILE Status: Resolved (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 one set of blood cultures are growing enterococcus faecalis CT abd with oral contrast shows findings s/o colovaginal fistula/leak around prior anastamotic site. has very poor functional status/bed bound, multiple med issues, low albumin (<2.0), anasarca s/p thoracentesis on right side with removal of around 1.3 lts transudate recieved kcentra and vit k for coagulopathy and suspected hematoma over right medial thigh, 2 u prbcs, all on 09/28 continue toprol xl, protonix, lipitor and oral iron poor prognosis has h/o PE and afib as well. Not sure if she is a candidate for ivc filter encourage po intake discussed code status with her, she wants one time cpr done if there is a chance she will survive.
--- NOTE | 2020-10-01 15:18 | PRG ---
DATE OF SERVICE: 10/01/2020 SUBJECTIVE: Ms. Rico denies any cough. No chest pain. No abdominal Pain. OBJECTIVE: VITAL SIGNS: The T-max 98.3, blood pressure 130/77, heart rate 69, respiratory rate 18, and O2 saturation 99. GENERAL: Does not appear in distress. LUNGS: Diminished breath sounds, right side, at the base. HEART: S1, S2, regular rate. ABDOMEN: Soft, not distended. LABORATORY DATA: The white cell count is down to 12.8, hemoglobin 7.3, platelets 491 with 77% neutrophils. Creatinine is down to 1.47. GFR at 34. Liver profile normal. Albumin 1.6. The pleural fluid cultures thus far no growth. ASSESSMENT AND DISCUSSION: Hypertension, cardiomyopathy, pacemaker, atrial fibrillation, on warfarin. Skin lesions in forearms. 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 I discussed the case with Dr. 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 He discussed possibility of diverting colostomy with the patient, but the family and the patient declined at the moment. So whenever her white cell count comes down to normal, then I would consider switching to oral Augmentin. However, in the long run, she would probably need a diversion to prevent this from worsening. Job ID: [id number]
--- NOTE | 2020-10-01 18:32 | CON ---
DATE OF CONSULTATION: HISTORY OF PRESENT ILLNESS: Leila Rico is an 85-year-old female patient, well known to me. Patient was initially seen by me in May of 2013. She is from [place]. She presented with rectal bleeding. She was found to have a 4 cm ulcerated rectal mass 2 to 3 cm above the anal verge revealing colonic adenocarcinoma, moderately differentiated, asymptomatic gallstones. CAT scan negative for metastasis. CEA level 1.5. Endoscopic ultrasound staging was performed at [facility], determined preoperative T2 N0 M0, describing the tumor is occupying 1/4 to 1/3 of the lumen extending down to the internal anal verge. Patient saw Dianna, presented to [facility], underwent preoperative radiation, chemotherapy. After completing that, she underwent epidural laparoscopic-assisted splenic flexure mobilization, left colon mobilization, open incision for low anterior resection with a protective ileostomy on 07/26/2013 for invasive well-differentiated adenocarcinoma. Staging postoperatively, T2 N0 M0 with subsequent ileostomy reversal in September 2013. I then saw her in March 2014 for a cholecystectomy, laparoscopic from which she did well. She had atrial fibrillation, underwent several ablations and eventually required a pacemaker. She is followed by Dr. Razo. She is on Coumadin for atrial fibrillation, which she has been on for many years. Patient was seen in July 2020. During that hospitalization, I saw her for a toe lesion, foot problems, probably secondary to diabetes and gout. She was seen during pneumonia. She was treated nonoperatively and this healed. In July of 2020, she was admitted for a large bowel obstruction, thought initially to be an Nick's type syndrome, although CAT scan suggested a colovaginal fistula with some air and inflammatory changes in the cul de sac. This was trace at this time. Dr. Santos at that hospitalization saw her and on 08/08/2020, patient underwent endoscopy. Findings were that of some inflammatory polypoid lesions near the colorectal anastomosis. There was no prep that was performed, but there was no obstruction. Colonoscopy to the hepatic flexure was accomplished with some ischemic colitis and biopsy was performed and a rectal decompression tube left in place. Pathology revealed hyperplastic polyps, inflammatory changes. No malignancy. On this occasion, patient's daughter takes patient's blood pressure 2 to 3 times a day. Noted her blood pressure would be low without any other symptoms. Patient denies having fever or alteration of her bowel habits. She denies having any abdominal pain or pelvic pain. Patient was brought to the hospital, found to have a hemoglobin of 6.3 and transfused. White count was 21,000. Cultures obtained revealed blood cultures 09/28/2020, Enterococcus, blood culture from her central line in the left common femoral. She had a thoracentesis without growth and subsequent blood cultures 09/29 two out of two were negative. She was noted in June to have a positive UTI Enterococcus. In essence, she had one blood culture obtained from a central line placed in the emergency room read out as positive. The other two blood cultures have been negative. Patient at this time denies symptoms and her vital signs are normal. Repeat CAT scan of the abdomen and pelvis revealed air-fluid levels in the pelvis and adjacent to the colorectal anastomosis posterior vagina area. On vaginal exam, I appreciate inflammatory changes in the low posterior vagina consistent with CAT scan findings and on examining finger in the vagina, there is some brownish fluid. Rectal exam reveals patent colorectal anastomosis with the same color fluid is appreciated in the vagina. Patient has a Elliott catheter in place. She has been on Zosyn since admission. Patient has multiple medical problems, but for the last several years, 5 to 6, she has been nonambulatory, mostly bedridden. She does help move about and standing, getting into a chair, but requires assistance. Echocardiogram 09/29 reveals EF of 50% to 55%. Normal LV size, pacemaker placement. Patient has been afebrile this hospitalization. HOME MEDICATIONS: 1. MiraLAX. 2. Clonidine. 3. Metoprolol. 4. Dulcolax. 5. Tylenol. 6. Ventolin inhaler. 7. Furosemide. 8. Atorvastatin. 9. Coumadin. Coumadin has been held as since admission she was found to be supratherapeutic PT greater than 150, now is down to 16.6, Coumadin has been held. She is followed by Dr. Razo for atrial fibrillation, pacemaker. 10. Potassium. 11. Ferrous sulfate. PAST SURGICAL HISTORY: Total abdominal hysterectomy in 1968, colonoscopy in 2012 into the hepatic flexure earlier this year. Tonsillectomy, laparoscopic-assisted low anterior resection for rectal cancer. Ileostomy with protective ileostomy, subsequent reversal seven years ago. Right craniotomy for probable meningioma. Pacemaker placement. Cardiac ablations. PAST MEDICAL HISTORY: AFib, chronic anticoagulation, normal cardiac ejection fraction, previous ablations, pacemaker placement, followed by Dr. Razo. No history of coronary artery disease, asthma, CKD, obesity, poor mobility, diabetes mellitus, gout, hypertension, metabolic syndrome. Rectal cancer, T2 N0 M0. History of stroke, history of cholecystectomy. SOCIAL HISTORY: Tobacco, none. Alcohol, none. PHYSICAL EXAMINATION: VITAL SIGNS: Height 5 feet 6, 220 pounds. 97.9, 69, and 135/77. HEAD, EARS, EYES, NOSE, AND THROAT: Unremarkable. LUNGS: Clear to auscultation. CARDIAC: Regular rate and rhythm, without murmur or gallop. Pacemaker, left chest. ABDOMEN: Soft. Well-healed incision. No hernias. Well-healed ileostomy reversal site, right lower quadrant. EXTREMITIES: Unremarkable. Obese. VAGINAL EXAM: Reveals some inflammatory changes in low posterior vagina, brown drainage on my vaginal examining finger. RECTAL EXAM: Normal colorectal anastomosis without stricture, inflammatory changes lower rectum opposite to the vaginal changes. ASSESSMENT/PLAN: 1. Supratherapeutic anticoagulation, Coumadin held and will be held. She has been transfused 3 units of blood. This partially accounts for her hypotension. 2. Positive blood cultures, Enterococcus. She had a positive Enterococcus urinary tract infection in July. Urine culture not obtained this hospitalization. One of three blood cultures were positive. The one blood culture that was positive was obtained from a femoral central line placed in the ER. Other two blood cultures a day or two later were negative. 3. She is afebrile with a normal white count without left shift. She does have air-fluid levels. They have worsened since July on current CAT scan. 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 Treatment options include diverting colostomy, which I would be in favor of. Considering her immobility, this would actually help her with her bowel care. She reports that she is continent but sometimes incontinent and she does wear a diaper and she is nonambulatory. Laparoscopic diverting colostomy could be considered. I would perform a proximal colostomy as with her left colectomy, probably should not perform a colostomy on that side with her JADE division and her blood supply depending on her middle colics. At this point, patient would desire us observation as she is asymptomatic without pain or fever. Laparoscopic colostomy would be reasonable. I think she would do well, although there are some cardiopulmonary risk associated with that, but her cardiac function is good and I think from a cardiopulmonary she would tolerate this well. This certainly could be performed this hospitalization or later. She at this time, however, wants to follow this and will be treated with oral antibiotics. Should she change her mind, please call. 4. Atrial fibrillation, chronic. 5. Pacemaker and history of ablations. 6. History of rectal cancer. 7. Obesity. Job ID: [id number]
[2020-10-01] MEDS: Atorvastatin Calcium 40 MG TAB PO SCH (21:36)
[2020-10-02] MEDS: Piperacillin/Tazobactam 3.375 GM in Sodium Chloride 0.9% 100 ML IVPB SCH ×4 (02:54→20:42)
[2020-10-02 05:55] LABS: #Eosinphils 0.5 thou/uL (0.0-0.7); #Lymphocytes 1.4 thou/uL (1.20-3.40); #Monocytes 1.3 thou/uL (0.11-0.59); #Neutrophils 9.8 thou/uL (1.40-6.50); %Basophils 0.2 % (0.0-1.0); %Eosinophils 3.8 % (0.0-10.0); %Lymphocytes 10.8 % (21.0-51.0); %Monocytes 10.1 % (0.0-10.0); %Neutrophils 75.1 % (42.0-75.0); Hemoglobin 7.9 g/dL (12.0-16.0); Mean Corpuscular HGB CONC 32.1 g/dL (32.0-36.0); Mean Corpuscular Volume 87.5 fL (78.0-98.0); Mean Platelet Volume 7.2 fL (7.4-10.4); Platelet Count 621 thou/uL (130-400); RBC Distribution Width 16.4 % (11.5-14.5); Red Blood Cell (RBC) Count 2.82 mill/uL (4.20-5.40)
[2020-10-02 06:22] LABS: ALT (SGPT) 12 U/L (8-55); AST (SGOT) 15 U/L (5-34); Albumin 1.7 g/dL (3.4-4.8); Alkaline Phosphatase 78 U/L (40-110); Anion Gap 13 mmol/L (10-20); BUN (Urea Nitrogen) 25 mg/dL (9.8-20.1); Bilirubin, Total 0.8 mg/dL (0.2-1.2); Calc. Creatinine Clearance 47 mL/min (70-130); Calcium 7.3 mg/dL (7.8-10.44); Carbon Dioxide 24 mmol/L (23-31); Chloride 105 mmol/L (98-107); Estimated GFR-MDRD 36; Globulin 3.1 g/dL (2.4-3.5); Glucose 125 mg/dL (83-110); Potassium 3.1 mmol/L (3.5-5.1); Protein, Total 4.8 g/dL (6.0-8.3); Sodium 139 mmol/L (136-145)
--- NOTE | 2020-10-02 08:04 | RAD ---
Chest AP view INDICATION: History of CHF COMPARISON: Prior exam dated September 29, 2020 FINDINGS: Lungs: There is worsening perihilar airspace opacities, right greater than left Cardiac silhouette: There is moderate cardiomegaly Pulmonary vasculature: There is [id number] pulmonary vascular congestion Pleural spaces: There are small bilateral pleural effusions, right greater than left. Upper abdomen: No abnormality seen. Osseous structures: No acute osseous abnormality. Additional findings: Dual-lead pacemaker is unchanged. IMPRESSION: Findings of [id number] CHF.
[2020-10-02] MEDS: Saccharomyces boulardii 250 MG CAP PO SCH (09:16)
[2020-10-02] MEDS: Dextrose 5 %-0.45 % NaCl 1,000 ML IV SCH (10:29)
--- NOTE | 2020-10-02 11:03 | PRG ---
DATE OF SERVICE: 10/02/2020 OBJECTIVE: VITAL SIGNS: Temperature 97, pulse 70, respiratory rate 18, sats are 90% on room air, blood pressure 126/65. GENERAL: She denies any difficulty breathing. CHEST: No wheezing. No crackles. CARDIAC: Normal S1 and S2. No gallops. ABDOMEN: Soft. IMAGING STUDIES: X-ray today shows no evidence of significant recurrence of the pleural effusion. IMPRESSION: Enterococcus sepsis, felt to be secondary to some kind of intraabdominal process. May be a fistula. Right pleural effusion, transudate, stable. From pulmonary standpoint, not much to offer. I am going to follow at a distance. Disposition as per the primary care physician. Job ID: [id number]
--- NOTE | 2020-10-02 13:48 | PDOC.HOSPP ---
- Subjective Encounter Date: 10/02/20 Encounter Time: 10:40 Subjective: no abd pain or nausea is tolerating oral diet has no complaints - Objective Vital Signs & Weight: Vital Signs (12 hours) Temp Pulse Resp BP BP Pulse Ox 10/02/20 08:00 98 10/02/20 07:06 97.8 F 70 18 126/65 98 10/02/20 04:00 98.7 F 69 20 131/70 92 L Weight Admit Weight 217 lb 11.2 oz Weight 223 lb 2.889 oz Most Recent Monitor Data Heart Rate from ECG 70 NIBP 133/56 NIBP BP-Mean 81 Respiration from ECG 28 SpO2 90 I&O: 10/01/20 10/02/20 10/03/20 06:59 06:59 06:59 Intake Total 1550 Output Total 650 200 Balance 900 -200 Result Diagrams: 10/02/20 04:49 10/02/20 04:49 Additional Labs: Accuchecks 10/02/20 10/02/20 10/01/20 11:03 05:00 19:44 POC Glucose 135 H 116 H 128 H 10/01/20 10/01/20 09/30/20 16:03 11:33 23:33 POC Glucose 98 89 94 09/30/20 09/30/20 21:27 11:19 POC Glucose 102 H 81 Hospitalist ROS - Medication Medications: Active Medications Generic Name Dose Route Start Last Admin Trade Name Freq PRN Reason Stop Dose Admin Atorvastatin Calcium 40 mg 09/28/20 21:00 10/01/20 21:36 Atorvastatin Calcium 40 Mg Tab PO 40 mg HS HAILEY Administration Piperacillin Sod/Tazobactam 100 mls @ 200 mls/hr 09/30/20 02:00 10/02/20 09:15 Sod 3.375 gm/ Sodium Chloride IVPB 100 mls 0200,0800,1400,2000 HAILEY Administration Metoprolol Succinate 50 mg 09/30/20 09:00 10/02/20 09:16 Metoprolol Succinate Xl 50 Mg Tab PO 50 mg DAILY HAILEY Administration Pantoprazole Sodium 40 mg 09/30/20 09:00 10/02/20 09:16 Pantoprazole 40 Mg Tab PO 40 mg DAILY HAILEY Administration Saccharomyces Boulardii 250 mg 09/29/20 09:00 10/02/20 09:16 Saccharomyces Boulardii 250 Mg Cap PO 250 mg DAILY HAILEY Administration - Exam General Appearance: awake alert Eye: PERRL, anicteric sclera ENT: no oropharyngeal lesions, moist mucosa Neck: supple, no JVD Heart: RRR, no murmur Respiratory: no wheezes, no rales Gastrointestinal: soft, non-tender, non-distended, normal bowel sounds, no guarding, no rigidity Extremities: no cyanosis, 1+ LE edema Neurological: cranial nerve grossly intact, no focal deficits Psychiatric: A&O x 3 Hosp A/P (1) Bacteremia Code(s): R78.81 - BACTEREMIA Status: Acute (2) Sepsis Code(s): A41.9 - SEPSIS, UNSPECIFIED ORGANISM Status: Acute Qualifiers: Sepsis type: sepsis due to unspecified organism Sepsis acute organ dysfunction status: with acute organ dysfunction Severe sepsis acute organ dysfunction type: acute renal failure Severe sepsis shock status: without septic shock (3) Acute on chronic diastolic CHF (congestive heart failure) Code(s): I50.33 - ACUTE ON CHRONIC DIASTOLIC (CONGESTIVE) HEART FAILURE Status: Resolved (4) Acute renal failure superimposed on stage 3 chronic kidney disease Code(s): N17.9 - ACUTE KIDNEY FAILURE, UNSPECIFIED; N18.3 - CHRONIC KIDNEY DISEASE, STAGE 3 (MODERATE) * DO NOT USE * Status: Resolved (5) UTI (urinary tract infection) Status: Acute Qualifiers: Urinary tract infection type: catheter-associated UTI Indwelling urinary catheter type: indwelling urethral catheter Encounter type: subsequent encounter Qualified Code(s): T83.511D - Infection and inflammatory reaction due to indwelling urethral catheter, subsequent encounter; N39.0 - Urinary tract infection, site not specified (6) Anemia Code(s): D64.9 - ANEMIA, UNSPECIFIED Status: Chronic Qualifiers: Anemia type: unspecified type Qualified Code(s): D64.9 - Anemia, unspecified (7) Chronic anticoagulation Code(s): Z79.01 - POWER CRANE OPERATOR (CURRENT) USE OF ANTICOAGULANTS Status: Chronic (8) H/O cardiac pacemaker Code(s): Z95.0 - PRESENCE OF CARDIAC PACEMAKER Status: Chronic (9) HTN (hypertension) Code(s): I10 - ESSENTIAL (PRIMARY) HYPERTENSION Status: Chronic Qualifiers: (10) CLEMENCIA (obstructive sleep apnea) Code(s): G47.33 - OBSTRUCTIVE SLEEP APNEA (ADULT) (PEDIATRIC) Status: Chronic (11) Obesity (BMI 30-39.9) Code(s): E66.9 - OBESITY, UNSPECIFIED Status: Chronic (12) Paroxysmal atrial fibrillation Code(s): I48.0 - PAROXYSMAL ATRIAL FIBRILLATION Status: Chronic (13) Physical deconditioning Code(s): R53.81 - OTHER MALAISE Status: Chronic (14) Type 2 diabetes mellitus Status: Chronic Qualifiers: Diabetes mellitus watermaster insulin use: without watermaster use Diabetes mellitus complication status: with kidney complications Diabetes mellitus complication detail: with chronic kidney disease Chronic kidney disease stage: stage 3 (moderate) Qualified Code(s): E11.22 - Type 2 diabetes mellitus with diabetic chronic kidney disease; N18.3 - Chronic kidney disease, stage 3 (moderate) (15) Supratherapeutic INR Code(s): R79.1 - ABNORMAL COAGULATION PROFILE Status: Resolved (16) Colovaginal fistula Code(s): N82.4 - OTHER FEMALE INTESTINAL-GENITAL TRACT FISTULAE Status: Suspected - Plan is on kell, d/w Sarbjit Morrison and Camilo, patient will f/u with as outpt if she decides to have a diverting colostomy wbc around 13k. one set of blood cultures are growing enterococcus faecalis CT abd with oral contrast shows findings s/o colovaginal fistula/leak around prior anastamotic site. has very poor functional status/bed bound, multiple med issues, low albumin (<2.0), anasarca s/p thoracentesis on right side with removal of around 1.3 lts transudate recieved kcentra and vit k for coagulopathy and suspected hematoma over right medial thigh, 2 u prbcs, all on 09/28 continue toprol xl, protonix, lipitor and oral iron poor prognosis has h/o PE and afib as well. Not sure if she is a candidate for ivc filter, no dvt this admission. encourage po intake discussed code status with her, she wants one time cpr done if there is a chance she will survive. dc plan likely in am once wbc counts come down on oral augmentin x 10 days?
[2020-10-02] MEDS: Atorvastatin Calcium 40 MG TAB PO SCH (20:41)
[2020-10-03] MEDS: Piperacillin/Tazobactam 3.375 GM in Sodium Chloride 0.9% 100 ML IVPB SCH ×3 (02:55→12:58)
--- NOTE | 2020-10-03 06:52 | PRG ---
DATE OF SERVICE: 10/02/2020 SUBJECTIVE: Leila Rico is doing well today. She has had a good night. She has not had any fever. Her white count remained stable at 13, hemoglobin 7.9. She denies any abdominal pain. Abdomen is soft and nontender. ASSESSMENT AND PLAN: Colovaginal fistula. This appeared initially in July 2020 and now has worsened slightly by the time of this presentation. Previous CAT scans did not demonstrate this. There is apparent drainage in the vagina providing drainage. There is an air-fluid level and there is a 3 cm fluid collection in the presacral area. The patient has considered with her daughter DNR status, but has been hospitalized in the past months and required ventilator support and recovered and done well and she is not ready to commit to DNR status. Currently, she is immobile. At this point, treatment options include observation versus diverting colostomy. The patient at this point chooses observation, and will be sent home with oral antibiotics. She did have more than a month ago UTI positive Enterococcus. She did have positive blood cultures drawn from a central line placed in the left femoral vein in the ER on admission, that single blood culture revealed Enterococcus bacteremia. Two other subsequent blood cultures have been negative. Whether this bacteremia secondary to the colovesical fistula or UTI is unknown as repeat urine cultures were not obtained. I have discussed with the patient and her daughter and also discussed with Dr. Lemus and Dr. Tenorio. Considering the patient's overall well status and considering the potential morbidity of operation, the patient desires comfort measures at this time and will be sent home with oral antibiotics. She can follow up with me should she have increasing pain in the perineal area, fever, or repeat presentation where repeat imaging reveals progression of this colovaginal fistula. She did have a colonoscopy in the last few months, unprepped and biopsy performed in the area revealing inflammatory changes without malignancy. She did undergo low anterior resection of rectal cancer after graham-adjunctive radiation chemotherapy in 2012, had a protective ileostomy that was reversed and has done well since that time. At this point, she will observe the process, follow up with me or I will see her in the hospital, pending future problems, and consideration to diverting laparoscopic colostomy will be given. If this is performed, would perform probably a right transverse as she has had mobilization of splenic flexure, left colon, division of her JADE, and vascular integrity of the left colon at this time is dependent on the middle colic. Job ID: [id number]
[2020-10-03] MEDS: Saccharomyces boulardii 250 MG CAP PO SCH (07:57)
[2020-10-03 08:29] LABS: #Eosinphils 0.3 thou/uL (0.0-0.7); #Lymphocytes 1.2 thou/uL (1.20-3.40); #Monocytes 1.6 thou/uL (0.11-0.59); #Neutrophils 10.5 thou/uL (1.40-6.50); %Eosinophils 2.2 % (0.0-10.0); %Lymphocytes 8.9 % (21.0-51.0); %Monocytes 11.5 % (0.0-10.0); %Neutrophils 77.4 % (42.0-75.0); Hemoglobin 8.7 g/dL (12.0-16.0); Mean Corpuscular HGB CONC 32.4 g/dL (32.0-36.0); Mean Corpuscular Hemoglobin 28.7 pg (27.0-31.0); Mean Corpuscular Volume 88.7 fL (78.0-98.0); Mean Platelet Volume 7.1 fL (7.4-10.4); Platelet Count 737 thou/uL (130-400); RBC Distribution Width 16.9 % (11.5-14.5); Red Blood Cell (RBC) Count 3.02 mill/uL (4.20-5.40); White Blood Cell (WBC) Count 13.6 thou/uL (4.8-10.8)
[2020-10-03 08:43] LABS: Anion Gap 13 mmol/L (10-20); BUN (Urea Nitrogen) 24 mg/dL (9.8-20.1); Calc. Creatinine Clearance 50 mL/min (70-130); Calcium 7.4 mg/dL (7.8-10.44); Carbon Dioxide 22 mmol/L (23-31); Chloride 106 mmol/L (98-107); Estimated GFR-MDRD 37; Glucose 107 mg/dL (83-110); Sodium 138 mmol/L (136-145)
[2020-10-03] MEDS ORDERED: Potassium Chloride 20 MEQ TAB PO SCH (10:00)
[2020-10-03 16:28] VITALS: BP 126/75; TEMP 97.8
--- NOTE | 2020-10-03 17:58 | DIS ---
DATE OF ADMISSION: 09/28/2020 DATE OF DISCHARGE: 10/03/2020 DISCHARGE DISPOSITION: Home. PRIMARY DISCHARGE DIAGNOSES: 1. Enterococcus faecalis bacteremia. 2. Suspected colovaginal fistula. 3. Sepsis. 4. Urinary tract infection. 5. Acute kidney injury. 6. Chronic kidney disease stage 3. 7. [id number] congestive heart failure exacerbation with diastolic dysfunction. 8. Chronic anemia. SECONDARY DISCHARGE DIAGNOSES: 1. . 2. Obstructive sleep apnea. 3. Obesity. 4. Poor functional status. 5. Paroxysmal atrial fibrillation. 6. Right medial thigh hematoma. 7. Diabetes mellitus type 2. 8. Severe protein malnutrition with albumin less than 2. PROCEDURES DONE DURING HOSPITALIZATION: Chest x-ray done showed right lung opacification with pleural effusion. Ultrasound venous Doppler of right lower extremity done showed no evidence of DVT. Right medial thigh hematoma. CT of the abdomen and pelvis without IV contrast done showed findings suspicious for right lower lobe pneumonia, worsening millie-anastomotic leak with fluid and gas extending into the pelvis near the colorectal junction, large peripherally enhancing intramuscular hematoma in the medial right thigh measuring 13.8 x 8.5 cm, diffuse anasarca. There is cystic abnormality in the pancreatic body reflecting slowly resolving possible pseudocyst. On 09/29/2020, the patient had right thoracentesis done with removal of 1300 mL of serosanguineous fluid by Dr. Walker. Echo with 2D Doppler showed an ejection fraction of 50% to 55%. There was diastolic dysfunction. Pleural fluid cytology has not revealed any malignant cells. Blood cultures 1/2 grew Enterococcus faecalis, resistant to erythromycin, but sensitive to all other antibiotics. Repeat blood culture drawn on 09/29/2020 has not grown any organism. H and H of 8.7 and 26, platelet count 737. BUN 24, creatinine 1.3, albumin 1.7, initial BUN and creatinine were 37 and 1.8. COVID-19 PCR was not detected on 09/28/2020. DISCHARGE MEDICATIONS: 1. Ferrous sulfate 325 mg p.o. twice daily. 2. Lipitor 40 mg p.o. at bedtime. 3. MiraLAX 17 g daily. 4. Lasix 40 mg p.o. daily. 5. K-Dur 20 mEq p.o. daily. 6. Toprol-XL 50 mg daily. 7. Albuterol inhaler p.r.n. 8. Augmentin 500/125 mg one tablet twice daily for 10 days. 9. Florastor 250 mg p.o. daily. ALLERGIES: NO KNOWN DRUG ALLERGIES. DISCHARGE PLAN: The patient to follow up with Dr. Schaffer if she decides to have a diverting colostomy. She needs to follow up with her primary nurse practitioner, Ms. Bethany Alarcon, in 1 week. BRIEF COURSE DURING HOSPITALIZATION: The patient initially got admitted on the with low blood pressures at home. The patient has had recurrent UTIs in the past. She has also been bed-bound for more than 2 years. [place]-cultures were obtained and the patient was initially in IMCU and was later downgraded to medical floor. Her cultures 1/2 in the blood grew Enterococcus faecalis. The patient also had right-sided pleural effusion and has had thoracentesis done with removal of 1300 mL of transudate. Her albumin levels are very low. Her CT of the abdomen and pelvis showed possible leak at the prior anastomotic site from a bowel surgery. This is a suspected colovaginal fistula. The patient was given a choice to undergo diverting colostomy. She is wanting to wait and decide and will follow up with Dr. Schaffer for the same. She was on IV antibiotics, which has been transitioned to Augmentin at the time of discharge. The patient still has anasarca due to low albumin. I have given complete updates to the patient and her daughter prior to discharge. Please note, I have seen and examined the patient on the day of discharge. Her overall prognosis is poor. Family is aware. Job ID: [id number]
== END 2020-10-03 15:12 | disposition home health service (06) | DRG 871 ==
LOC: ERS 01:54 → ERHOLD 05:19 → IMCU/EMU 09:24 → T4-B 09-29 13:11
PROVIDERS: ADMIT Internal Medicine; ATTEND Internal Medicine
PROC: 30233N1 Transfusion of Nonautologous Red Blood Cells into Peripheral Vein, Percutaneous Approach (ICD-10-PCS; 2020-09-28)
PROC: 0W9930Z Drainage of Right Pleural Cavity with Drainage Device, Percutaneous Approach (ICD-10-PCS; principal; 2020-09-29)
DX: A41.81 Sepsis due to Enterococcus (principal); I50.33 Acute on chronic diastolic (congestive) heart failure; E43 Unspecified severe protein-calorie malnutrition; T83.511A Infection and inflammatory reaction due to indwelling urethral catheter, initial encounter; N17.9 Acute kidney failure, unspecified; I13.0 Hypertensive heart and chronic kidney disease with heart failure and stage 1 through stage 4 chronic kidney disease, or unspecified chronic kidney disease; N39.0 Urinary tract infection, site not specified; D68.32 Hemorrhagic disorder due to extrinsic circulating anticoagulants; J90 Pleural effusion, not elsewhere classified; J94.2 Hemothorax; E87.1 Hypo-osmolality and hyponatremia; I42.9 Cardiomyopathy, unspecified; I48.20 Chronic atrial fibrillation, unspecified; N82.3 Fistula of vagina to large intestine; D62 Acute posthemorrhagic anemia; T81.83XA Persistent postprocedural fistula, initial encounter; R65.20 Severe sepsis without septic shock; R19.5 Other fecal abnormalities; E78.5 Hyperlipidemia, unspecified; M10.9 Gout, unspecified; N18.30 Chronic kidney disease, stage 3 unspecified; E11.22 Type 2 diabetes mellitus with diabetic chronic kidney disease; G47.33 Obstructive sleep apnea (adult) (pediatric); M79.81 Nontraumatic hematoma of soft tissue; I48.0 Paroxysmal atrial fibrillation; R53.81 Other malaise; E87.5 Hyperkalemia; E66.01 Morbid (severe) obesity due to excess calories; L89.309 Pressure ulcer of unspecified buttock, unspecified stage; Z20.828 Contact with and (suspected) exposure to other viral communicable diseases; L89.209 Pressure ulcer of unspecified hip, unspecified stage; Y83.8 Other surgical procedures as the cause of abnormal reaction of the patient, or of later complication, without mention of misadventure at the time of the procedure; Z86.718 Personal history of other venous thrombosis and embolism; Z86.711 Personal history of pulmonary embolism; Z79.01 Long term (current) use of anticoagulants; Z85.048 Personal history of other malignant neoplasm of rectum, rectosigmoid junction, and anus; Z90.49 Acquired absence of other specified parts of digestive tract; Z90.710 Acquired absence of both cervix and uterus; Z95.0 Presence of cardiac pacemaker; Z68.36 Body mass index [BMI] 36.0-36.9, adult; Z74.01 Bed confinement status
CPT/HCPCS: 36415; 36416; 36430; 36556; 51702; 71045; 74176; 76999; 80048; 80053; 81003; 81015; 82274; 82945; 83605; 83615; 83735; 83880; 84157; 84484; 85025; 85060; 85379; 85610; 85730; 86850; 86900; 86901; 87040; 87070; 87077; 87116; 87149; 87186; 87205; 87206; 87635; 88112; 88305; 89051; 93005; 93306; 96361; 96365; 96367; 96368; 96375; C9113; J0692; J2001; J2543; J3370; J3430; J3490; J7050; P9016; U0003

== ENCOUNTER 2020-10-14 18:25 | Inpatient (IN) | payer MEDICARE ==
[2020-10-14 19:11] LABS: #Basophils 0.1 thou/uL (0.0-0.2); #Eosinphils 0.2 thou/uL (0.0-0.7); #Lymphocytes 1.2 thou/uL (1.20-3.40); #Monocytes 1.2 thou/uL (0.11-0.59); #Neutrophils 10.7 thou/uL (1.40-6.50); %Basophils 0.5 % (0.0-1.0); %Eosinophils 1.5 % (0.0-10.0); %Monocytes 8.8 % (0.0-10.0); %Neutrophils 80.4 % (42.0-75.0); Hemoglobin 10.3 g/dL (12.0-16.0); Mean Corpuscular HGB CONC 30.5 g/dL (32.0-36.0); Mean Corpuscular Hemoglobin 29.1 pg (27.0-31.0); Mean Corpuscular Volume 95.3 fL (78.0-98.0); Mean Platelet Volume 7.8 fL (7.4-10.4); Platelet Count 482 thou/uL (130-400); RBC Distribution Width 19.1 % (11.5-14.5); Red Blood Cell (RBC) Count 3.52 mill/uL (4.20-5.40); White Blood Cell (WBC) Count 13.3 thou/uL (4.8-10.8)
--- NOTE | 2020-10-14 19:18 | RAD ---
RADIOGRAPH CHEST 1 VIEW: DATE: 10/14/2020 TIME: 7:07 PM HISTORY: 85-year-old female with dyspnea and abnormal breath sounds COMPARISON: 10/02/2020 FINDINGS: Interval increase in volume of right pleural effusion. Interval increase in haziness of the entire ri ght lung except for relative sparing of a small portion of right apex. Opacification of right lower lung zone, presumably atelectasis, although pneumonia cannot be excluded. Left lung is clear. Left subclavian dual lead pacemaker. No pneumothorax. IMPRESSION: Interval increase in volume of now probably large right pleural effusion with worsening of underlying atelectasis or infiltrate at right lower lung zone.
[2020-10-14 19:44] LABS: ALT (SGPT) 9 U/L (8-55); AST (SGOT) 20 U/L (5-34); Albumin 1.8 g/dL (3.4-4.8); Alkaline Phosphatase 111 U/L (40-110); Anion Gap 15 mmol/L (10-20); BUN (Urea Nitrogen) 31 mg/dL (9.8-20.1); Bilirubin, Total 0.4 mg/dL (0.2-1.2); CK (CPK) 25 U/L (29-168); Calc. Creatinine Clearance 0 mL/min (70-130); Calcium 7.5 mg/dL (7.8-10.44); Carbon Dioxide 21 mmol/L (23-31); Chloride 107 mmol/L (98-107); Estimated GFR-MDRD 42; Globulin 3.6 g/dL (2.4-3.5); Glucose 106 mg/dL (83-110); Magnesium 1.3 mg/dL (1.6-2.6); Potassium 5.4 mmol/L (3.5-5.1); Protein, Total 5.4 g/dL (6.0-8.3); Sodium 138 mmol/L (136-145)
[2020-10-14 20:22] LABS: Bilirubin Negative (Negative); Blood, Urine 2+ (Negative); Clarity Turbid (Clear); Glucose, Urine (Dipstick) Normal (Negative); Ketone, Urine Negative (Negative); Leukocyte 250 Leu/uL (Negative); Nitrite Negative (Negative); Protein, Urine (Dipstick) Negative (Neg-Trace); Specific Gravity, Urine 1.011 (1.002-1.036); Squamous Epithelial 0-3 HPF (0-3); Urobilinogen Normal mg/dL (Less than 2)
[2020-10-14 20:27] LABS: Bacteria/HPF 1+ HPF (None Seen)
[2020-10-14 20:28] LABS: Yeast-Budding 2+ HPF (None Seen)
[2020-10-14] MEDS ORDERED: Vancomycin HCl 1 GM in Sodium Chloride 0.9% 250 ML 300 ML IVPB SCH (21:00)
[2020-10-14] MEDS ORDERED: Vancomycin 1 GM/200 ML BAG ONE (21:16)
[2020-10-14] MEDS ORDERED: Cefepime 2 GM VIAL ONE (21:17)
--- NOTE | 2020-10-14 21:24 | PDOC.BPN ---
- Brief Progress Note [id number] HP
--- NOTE | 2020-10-14 21:27 | RAD ---
RADIOGRAPH CHEST 1 VIEW: DATE: 10/14/2020 TIME: 9:09 PM HISTORY: 85-year-old female status post central line placement COMPARISON: 10/14/2020 7:07 PM FINDINGS: Again noted are the right pleural effusion, haziness of the entire right lung except for relative spa ring of a small portion of right apex, and opacification of right lower lung zone, presumably atelectasis, although pneumonia cannot be excluded. Left lung is clear. Left subclavian dual lead pac emaker. The only interval change is a new central vascular catheter descending from the right neck, with distal tip overlying SVC. No pneumothorax. IMPRESSION: 1) status post right-sided central vascular catheter placement without pneumothorax. 2) no other interval change
[2020-10-14 21:52] LABS: Prothrombin Time 31.4 sec (12.0-14.7)
[2020-10-14] MEDS ORDERED: Magnesium 2 GM/50 ML 2 GM in Premix Bag 1 BAG IVPB SCH (23:30)
[2020-10-14] MEDS ORDERED: Vancomycin HCl 500 MG in Sodium Chloride 0.9% 100 ML IVPB SCH (23:59)
--- NOTE | 2020-10-15 00:44 | HP ---
CHIEF COMPLAINT: Shortness of breath and edema. HISTORY OF PRESENT ILLNESS: Ms. Rico is an 85-year-old female with past medical history of congestive heart failure, chronic kidney disease, chronic anemia, hypoalbuminemia, paroxysmal atrial fibrillation, sleep apnea, diabetes type 2, severe protein-calorie malnutrition, recent diagnosis of Enterococcus faecalis bacteremia, presented to the emergency room with worsening shortness of breath and generalized swelling and edema. The patient was recently admitted to the hospital from 09/28/2020 to 10/03/2020 and was treated for Enterococcus faecalis bacteremia, suspected colovaginal fistula, urinary tract infection, sepsis, and acute kidney injury. The patient was discharged home on oral antibiotic. Her last antibiotic was today. In the emergency room, the patient was short of breath with oxygen saturations 94% on room air. She was found to be hypoalbuminemic with albumin of 1.8. Potassium is 5.4. No EKG changes. Blood pressure is 160/90. Lab work showed UTI. The patient also had hematoma in her right thigh. According to her, it has been getting better. She said that her oral intake is poor due to poor appetite. In the emergency room, x-ray showed ? pneumonia, effusion, haziness on the right chest. The patient had septic workup done in the ED. The patient was started on IV antibiotics. The patient is being admitted to hospital for further management. PAST MEDICAL HISTORY: As mentioned above in history of present illness. PAST SURGICAL HISTORY: 1. Cardiac pacemaker. 2. Cardiac ablation. 3. Surgery for brain tumor. 4. Appendectomy. 5. Cholecystectomy. 6. Colostomy with reversal. 7. Hysterectomy. SOCIAL HISTORY: The patient denies drug use, alcohol use, smoking. FAMILY HISTORY: Reviewed and noncontributory. HOME MEDICATIONS: Please see home medication reconciliation form for updated medications. ALLERGIES: NO KNOWN ALLERGIES. REVIEW OF SYSTEMS: Review of 14 systems negative except what is mentioned in the history of present illness. PHYSICAL EXAMINATION: GENERAL: The patient is awake, alert, in moderate distress. VITAL SIGNS: Blood pressure is 160/90, temperature 97.6, respiratory rate is 24, pulse is 85, oxygen saturation is 100% on 2 L/minute nasal cannula. HEAD AND NECK: Normocephalic. NECK: Supple. CHEST: Decreased air entry, right lung. HEART: Distant heart sounds. No murmur. ABDOMEN: Obese, soft. Bowel sounds present. NEUROLOGIC: Awake, alert, moving extremities. PSYCH: Unable to assess. EXTREMITIES: No clubbing, no cyanosis. There is a little bit of induration in the upper right thigh, but according to the patient that is being getting better. LABORATORY DATA: Urinalysis is positive for WBCs, turbid, and leukocytes. Magnesium is low at 1.3. Potassium is elevated at 5.4, BUN is 31, creatinine 1.2. BNP is 149. WBC 13.3, hemoglobin 10.3, and platelets 482. X-ray of the chest shows interval increase of volume of large right pleural effusion with worsening underlying atelectasis/infiltrate. ASSESSMENT AND PLAN: 1. Shortness of breath, multifactorial, but probably secondary to fluid/volume overload/pleural effusion, underlying pneumonia cannot be ruled out. 2. Enterococcus bacteremia, recently diagnosed, treated with IV and oral antibiotic. 3. Urinary tract infection. 4. Severe protein calorie malnutrition. 5. Hypoalbuminemia. 6. Anasarca. 7. Sleep apnea. 8. Obesity. 9. Paroxysmal atrial fibrillation. 10. Right medial thigh hematoma and it has been improving as per patient. 11. Diabetes mellitus, type 2. PLAN: 1. Admit. 2. Septic workup done in the ED. 3. IV antibiotics. 4. Oxygen to keep saturation more than 92%. 5. Dietitian/Nutrition consultation regarding protein calorie malnutrition. 6. Consider diuresis/thoracentesis if the patient continues to be symptomatic with shortness of breath. 7. We will continue IV antibiotics for now. The patient just finished course of antibiotics. 8. Consider Infectious Disease consultation regarding recent Enterococcus bacteremia and if we need to continue with antibiotics at this point. 9. Monitor and correct electrolytes. 10. Replace magnesium. 11. DVT prophylaxis appropriate. 12. Expected length of stay, 2 midnights or more. Job ID: [id number]
[2020-10-15 05:05] LABS: Lymphocytes 13 % (21-51); MDiff Complete? YES; Mean Corpuscular HGB CONC 30.6 g/dL (32.0-36.0); Mean Corpuscular Hemoglobin 30.9 pg (27.0-31.0); Mean Platelet Volume 8.2 fL (7.4-10.4); Monocytes 9 % (0-10); Neutrophil 78 % (42-75); Platelet Count 213 thou/uL (130-400); Platelet Morphology Comment Appears Adequate; RBC Distribution Width 18.8 % (11.5-14.5); Red Blood Cell (RBC) Count 1.93 mill/uL (4.20-5.40); White Blood Cell (WBC) Count 7.3 thou/uL (4.8-10.8)
[2020-10-15 05:37] LABS: ALT (SGPT) 11 U/L (8-55); AST (SGOT) 33 U/L (5-34); Albumin 1.4 g/dL (3.4-4.8); Alkaline Phosphatase 99 U/L (40-110); Anion Gap 17 mmol/L (10-20); BUN (Urea Nitrogen) 30 mg/dL (9.8-20.1); Bilirubin, Total 0.3 mg/dL (0.2-1.2); Calc. Creatinine Clearance 55 mL/min (70-130); Calcium 7.3 mg/dL (7.8-10.44); Carbon Dioxide 14 mmol/L (23-31); Chloride 111 mmol/L (98-107); Estimated GFR-MDRD 42; Globulin 3.7 g/dL (2.4-3.5); Glucose 93 mg/dL (83-110); Potassium 6.4 mmol/L (3.5-5.1); Protein, Total 5.1 g/dL (6.0-8.3); Sodium 136 mmol/L (136-145)
[2020-10-15] MEDS ORDERED: Acetaminophen 325 MG TAB PO PRN (06:38)
[2020-10-15 06:43] VITALS: BMI 35.7
[2020-10-15] MEDS ORDERED: Non-Formulary Item 1 EACH (Ventolin Hfa Inhaler [Ventolin Hfa Inhaler] 60 PUFF Aer) PO PRN (07:29)
[2020-10-15] MEDS ORDERED: Polyethylene Glycol 3350 17 GM Packet PO PRN (07:29)
[2020-10-15] MEDS ORDERED: Bisacodyl 5 MG TAB PO PRN (07:29)
--- NOTE | 2020-10-15 07:35 | PDOC.HOSPP ---
- Subjective Encounter Date: 10/15/20 Encounter Time: 09:30 Subjective: Patient with continued SOB. No chest pain. No other complaints. Patient with persistent INR elevation though daughter states patient has been off her Coumadin since her last hospitalization. - Objective Vital Signs & Weight: Vital Signs (12 hours) Temp Pulse Resp BP Pulse Ox 10/15/20 07:28 97 F L 68 24 H 95/53 L 10/15/20 05:05 97.3 F L 70 22 H 105/55 L 100 10/14/20 23:35 97.3 F L 71 22 H 99/57 L 99 Weight Weight 228 lb 6.4 oz Result Diagrams: 10/15/20 04:33 10/15/20 09:37 Hospitalist ROS - Review of Systems Constitutional: denies: fever, chills Respiratory: reports: shortness of breath. denies: cough Cardiovascular: denies: chest pain, palpitations Gastrointestinal: denies: nausea, vomiting, abdominal pain - Medication Medications: Active Medications Generic Name Dose Route Start Last Admin Trade Name Freq PRN Reason Stop Dose Admin Acetaminophen 650 mg 10/15/20 06:38 10/15/20 06:46 Acetaminophen 325 Mg Tab PO 650 mg Q6H PRN Administration Pain - Exam General Appearance: NAD, awake alert ENT: moist mucosa Heart: RRR, no murmur, no gallops, no rubs Respiratory: CTAB, no wheezes, no rales, no ronchi Gastrointestinal: soft, non-tender, non-distended, normal bowel sounds Extremities: 2+ LE edema Psychiatric: normal affect, normal behavior Hosp A/P (1) Acute respiratory failure with hypoxia Code(s): J96.01 - ACUTE RESPIRATORY FAILURE WITH HYPOXIA Status: Acute (2) Acute on chronic diastolic CHF (congestive heart failure) Code(s): I50.33 - ACUTE ON CHRONIC DIASTOLIC (CONGESTIVE) HEART FAILURE Status: Acute (3) Chronic renal failure, stage 3 (moderate) Code(s): N18.30 - CHRONIC KIDNEY DISEASE, STAGE 3 UNSPECIFIED Status: Chronic (4) Hyperkalemia Code(s): E87.5 - HYPERKALEMIA Status: Acute (5) UTI (urinary tract infection) Status: Suspected Qualifiers: (6) Morbid obesity with BMI of 45.0-49.9, adult Code(s): E66.01 - MORBID (SEVERE) OBESITY DUE TO EXCESS CALORIES; Z68.42 - BODY MASS INDEX [BMI] 45.0-49.9, ADULT Status: Chronic (7) H/O cardiac pacemaker Code(s): Z95.0 - PRESENCE OF CARDIAC PACEMAKER Status: Chronic (8) HTN (hypertension) Code(s): I10 - ESSENTIAL (PRIMARY) HYPERTENSION Status: Chronic Qualifiers: (9) CLEMENCIA (obstructive sleep apnea) Code(s): G47.33 - OBSTRUCTIVE SLEEP APNEA (ADULT) (PEDIATRIC) Status: Chronic (10) Paroxysmal atrial fibrillation Code(s): I48.0 - PAROXYSMAL ATRIAL FIBRILLATION Status: Chronic (11) Type 2 diabetes mellitus Status: Chronic Qualifiers: Diabetes mellitus ferry terminal supervisor insulin use: without ferry terminal supervisor use Diabetes mellitus complication status: with kidney complications Diabetes mellitus complication detail: with chronic kidney disease Chronic kidney disease stage: stage 3 (moderate) Plan: currently well controlled on diet only (12) Severe protein-calorie malnutrition Code(s): E43 - UNSPECIFIED SEVERE PROTEIN-CALORIE MALNUTRITION Status: Acute - Plan Lasix for CHF exacerbation with worsening pleural effusion. Will consult cardiology, pulmonology. Hold potassium supplements and recheck potassium after Lasix this morning. Consult nephrology if stays up. Blood and urine cultures pending. Patient just finishing course of Augmentin so doubt infection. Can d/c abx if cultures come back negative. H/H dropped with persistent INR elevation off Coumadin, suspect very poor nutrition involved. Will hold Lovenox. Type, cross, transfuse 2 units PRBC. Palliative care consult. DVT proph: Lovenox- on hold GI proph: Pepcid
[2020-10-15] MEDS ORDERED: PROVENTIL INHALER 6.7 G (200 INHALATIONS) INH PRN (07:40)
[2020-10-15] MEDS ORDERED: Furosemide 40 MG/4 ML VIAL SLOW IVP SCH ×2 (07:45→14:00)
[2020-10-15] MEDS ORDERED: EPINEPHrine 1 MG/10 ML Abboject SYRINGE ONE ×2 (08:42→08:43)
[2020-10-15] MEDS ORDERED: Calcium Chloride 1 GM/10 ML Abboject SYRINGE ONE (08:43)
[2020-10-15] MEDS ORDERED: Sodium Bicarb 50 MEQ/50 ML Abboject 8.4% SYRINGE ONE (08:43)
[2020-10-15] MEDS: Cefepime 2 GM in Sodium Chloride 0.9% 100 ML IVPB SCH ×2 (08:58→20:52)
[2020-10-15] MEDS: Ferrous Sulfate 325 MG TAB PO SCH ×2 (08:59→20:52)
[2020-10-15] MEDS ORDERED: Famotidine/PF 20 mg/2ml Vial SLOW IVP SCH (09:00)
[2020-10-15] MEDS ORDERED: Non-Formulary Item 1 EACH (Ferrous Sulfate [Iron] 325 MG Tablet) PO SCH (09:00)
[2020-10-15] MEDS ORDERED: Saccharomyces boulardii 250 MG CAP PO SCH (09:00)
[2020-10-15] MEDS ORDERED: Enoxaparin Sodium 30 MG/0.3 ML SYRINGE SC SCH ×2 (09:00)
[2020-10-15] MEDS ORDERED: Enoxaparin Sodium 40 MG/0.4 ML SYRINGE SC SCH (09:00)
[2020-10-15] MEDS ORDERED: traMADol HCl 50 MG TAB PO PRN ×2 (09:35)
[2020-10-15 10:31] LABS: Anion Gap 14 mmol/L (10-20); BUN (Urea Nitrogen) 31 mg/dL (9.8-20.1); Calc. Creatinine Clearance 51 mL/min (70-130); Calcium 7.7 mg/dL (7.8-10.44); Carbon Dioxide 21 mmol/L (23-31); Chloride 108 mmol/L (98-107); Estimated GFR-MDRD 39; Glucose 87 mg/dL (83-110); Potassium 5.3 mmol/L (3.5-5.1); Sodium 138 mmol/L (136-145)
[2020-10-15 14:17] LABS: SARS-CoV-2 MS2 Positive; SARS-CoV-2 N Gene Negative; SARS-CoV-2 S Gene Negative; SARS-CoV-2 by NAA Not Detected (NotDetected); SARS-CoV-2 orf1ab Negative
--- NOTE | 2020-10-15 15:44 | CON ---
DATE OF CONSULTATION: REASON FOR CONSULTATION: Congestive heart failure. HISTORY OF PRESENT ILLNESS: Ms. Rico is an 85-year-old woman, who I have seen and evaluated in the past. She recently presented with back pain and shortness of breath. Ms. Rico over the last several months to years, has had intermittent episodes of acute on chronic diastolic heart failure. She has had lower extremity edema in addition to renal insufficiency. She has required AV crystal ablation and is pacemaker dependent. She states overall she is feeling much better. She recently was diagnosed with Enterococcus faecalis bacteremia and placed on antibiotic therapy. PAST MEDICAL HISTORY: Appendectomy, cholecystectomy, previous brain tumor, AV crystal ablation, status post pacemaker, colostomy, hysterectomy. SOCIAL HISTORY: No current tobacco or alcohol use. HOME MEDICATIONS: Reviewed. PHYSICAL EXAMINATION: GENERAL: Patient is a pleasant woman, who is in no acute distress. The patient appears their stated age. VITAL SIGNS: Blood pressure 103/48, pulse 70, respirations 20. NEUROLOGIC: The patient is alert and oriented x3 with no focal neurologic deficits. HEENT: Sclerae without icterus. Mouth has moist mucous membranes with normal pallor. NECK: No JVD. Carotid upstroke brisk. No bruits bilaterally. LUNGS: Clear to auscultation with unlabored respirations. BACK: No scoliosis or kyphosis. CARDIAC: Regular rate and rhythm with normal S1 and S2. No S3 or S4 noted. No significant rubs, murmurs, thrills, or gallops noted throughout the precordium. PMI is not displaced. There is no parasternal heave. ABDOMEN: Soft, nontender, nondistended. No peritoneal signs present. No hepatosplenomegaly. No abnormal striae. EXTREMITIES: 2+ femoral and 2+ dorsalis pedis pulses. No cyanosis, clubbing, or edema. SKIN: No gross abnormalities. LABORATORY DATA: Hemoglobin 6.0. IMPRESSION: 1. Shortness of breath. 2. Diastolic dysfunction. 3. Atrial fibrillation, status post ablation. RECOMMENDATIONS: Ms. Rico has had a dramatic drop in hemoglobin from 10 to 6.0. This may be contributing to her shortness of breath. The patient will likely need to be typed and crossed. We will need to repeat her hemoglobin to make sure it is consistent. She denied black tarry stools. We will continue to follow closely. Job ID: [id number]
[2020-10-15 20:20] VITALS: BP 84/56; TEMP 97.4
[2020-10-15] MEDS ORDERED: Atorvastatin Calcium 40 MG TAB PO SCH (21:00)
[2020-10-15 21:39] LABS: Hemoglobin 13.6 g/dL (12.0-16.0); Mean Corpuscular Hemoglobin 30.1 pg (27.0-31.0); Mean Corpuscular Volume 97.2 fL (78.0-98.0); Mean Platelet Volume 8.4 fL (7.4-10.4); Platelet Count 382 thou/uL (130-400); Red Blood Cell (RBC) Count 4.52 mill/uL (4.20-5.40); White Blood Cell (WBC) Count 12.4 thou/uL (4.8-10.8)
[2020-10-15 21:55] LABS: Anion Gap 19 mmol/L (10-20); BUN (Urea Nitrogen) 30 mg/dL (9.8-20.1); Calc. Creatinine Clearance 47 mL/min (70-130); Calcium 7.9 mg/dL (7.8-10.44); Carbon Dioxide 10 mmol/L (23-31); Chloride 111 mmol/L (98-107); Estimated GFR-MDRD 35; Glucose 69 mg/dL (83-110); Potassium 6.5 mmol/L (3.5-5.1); Sodium 133 mmol/L (136-145)
[2020-10-15] MEDS ORDERED: Vancomycin 1.5 GRAM/300 ML BAG 1.5 GM in Premix Bag 1 BAG IVPB SCH (22:00)
[2020-10-15 22:10] LABS: Band 1 % (5-11); Lymphocytes 8 % (21-51); MDiff Complete? YES; Monocytes 6 % (0-10); Neutrophil 85 % (42-75); Platelet Morphology Comment Appears Adequate; RBC Morphology Normal
[2020-10-16] MEDS ORDERED: Albumin 25% 25 GM/100 ML BOT IVPB SCH (03:30)
[2020-10-16] MEDS ORDERED: D5 1/2 NS w/20 mEq KCL 1,000 ML ONE (04:02)
[2020-10-16] MEDS ORDERED: Dextrose 50% Abboject 50 ML SYRINGE ONE ×2 (04:04→04:19)
[2020-10-16 04:26] LABS: Prothrombin Time 49.8 sec (12.0-14.7)
[2020-10-16 04:28] LABS: Actual Bicarbonate (HCO3a) 14.6 mEq/L (22-28); Base Excess (BEa) -11.9 mEq/L (-2.0 to +3.0); CO2 Tension 35.5 mmHg (35.0-45.0); Calcium, Ionized (arterial) 1.61 mmol/L (1.12-1.30); Carboxyhemoglobin (COHb) 0.7 gm% (0.0-3.0); Hemoglobin (Hb) 12.1 g/dL (12.0-16.0); O2 Tension (PaO2), arterial 404.1 mmHg (> 60.0); Potassium - ABG Lab 5.05 mmol/L (3.70-5.30)
[2020-10-16 04:30] LABS: INR-International Normal Ratio 5.3
[2020-10-16] MEDS ORDERED: Dextrose 50% Abboject 50 ML SYRINGE SLOW IVP SCH (04:30)
[2020-10-16] MEDS ORDERED: Norepinephrine 8 MG in Dextrose 5% in Water 242 ML IVPB PRN (04:30)
[2020-10-16] MEDS ORDERED: Insulin Regular 300 UNITS/3 ML VIAL IVP SCH (04:30)
[2020-10-16 04:32] LABS: pH, Arterial 7.23 (7.35-7.45)
[2020-10-16 04:33] LABS: ALV-art Gradient 264.525 mmHg (0-20); Puncture Site RBA
[2020-10-16 04:48] LABS: Anion Gap 22 mmol/L (10-20); BUN (Urea Nitrogen) 35 mg/dL (9.8-20.1); Calc. Creatinine Clearance 38 mL/min (70-130); Calcium 12.8 mg/dL (7.8-10.44); Carbon Dioxide 16 mmol/L (23-31); Chloride 110 mmol/L (98-107); Estimated GFR-MDRD 28; Glucose 43 mg/dL (83-110); Potassium 5.8 mmol/L (3.5-5.1); Sodium 142 mmol/L (136-145)
[2020-10-16 05:06] LABS: Band 8 % (5-11); Eosinophils 1 % (0-10); Hemoglobin 13.4 g/dL (12.0-16.0); Lymphocytes 20 % (21-51); MDiff Complete? YES; Mean Corpuscular HGB CONC 31.2 g/dL (32.0-36.0); Mean Corpuscular Hemoglobin 30.4 pg (27.0-31.0); Mean Corpuscular Volume 97.6 fL (78.0-98.0); Mean Platelet Volume 8.6 fL (7.4-10.4); Monocytes 14 % (0-10); Neutrophil 57 % (42-75); Platelet Count 204 thou/uL (130-400); Platelet Morphology Comment Appears Adequate; RBC Distribution Width 17.8 % (11.5-14.5); RBC Morphology Normal; White Blood Cell (WBC) Count 12.1 thou/uL (4.8-10.8)
--- NOTE | 2020-10-16 05:13 | PDOC.BPN ---
- Brief Progress Note patient went into cardiac arrest CPR and ACLS performed with ROSC Intubated Transferred to ICU For details see CPR records Later went back into cardiac arrest Daughter came, No more CPR as per family. Pt is DNR now.
--- NOTE | 2020-10-16 07:50 | RAD ---
EXAM: Single view of the chest HISTORY: Respiratory failure status post intubation COMPARISON: 10/14/2020 FINDINGS: Single view of the chest shows an enlarged but stable cardiomediastinal silhouette. The pa cemaker is unchanged in position. He central venous catheter is in position. An endotracheal tube is seen in good position with its tip above the livan. An NG tube is seen in the stomach. There is a large right pleural effusion with adjacent atelectasis versus infiltrate. Degenerative changes are seen in the spine. IMPRESSION: 1. Appropriate position of lines and tubes 2. Large right pleural effusion with adjacent atelectasis versus infiltrate
--- NOTE | 2020-10-16 08:04 | CON ---
DATE OF CONSULTATION: 10/15/2020 HISTORY OF PRESENT ILLNESS: Ms. Rico is an 85-year-old female, who has had multiple hospital admissions over the last 4 to 5 months. She has chronic kidney disease. She is severely hypoalbuminemic this admission with an albumin of 1.4. She has an echocardiogram in the past that shows diastolic dysfunction. She does not have significant proteinuria, and on the recent CAT scan there is no evidence of cirrhosis. Her presenting complaint is shortness of breath. She underwent a thoracentesis on September 30, which revealed the fluid to be transudative on the right chest. She still has a pleural effusion. I was consulted. Most of the history is obtained from the daughter. PAST MEDICAL HISTORY: Remarkable for: 1. Chronic kidney disease. 2. Obesity. 3. Deconditioning. 4. History of Enterococcus bacteremia. 5. History of an AV node ablation. 6. History of pacemaker. 7. History of cholecystectomy. 8. History of an appendectomy. 9. History of brain tumor. 10. History of colostomy in the past with a takedown. 11. Status post hysterectomy. FAMILY HISTORY: Negative for lung disease in early age. SOCIAL HISTORY: Noncontributory. She is a nonsmoker and nondrinker. PHYSICAL EXAMINATION: GENERAL: She is in no distress. She is resting comfortably. VITAL SIGNS: She is afebrile, heart rate is in the 60s, respiratory rate 16, oximetry is 97% on room air, and blood pressure 103/48. HEAD AND NECK: Unremarkable. LUNGS: Clear, except for decreased breath sounds at the right base. HEART: Regular rhythm. No S3. ABDOMEN: Soft, nontender. EXTREMITIES: Moves all 4 extremities, remarkable for 2 to 3+ edema. IMPRESSION: Anasarca secondary to hypoalbuminemia component of diastolic dysfunction. Repeat thoracentesis is not indicated since the fluid was transudative and not infected. No diuresis and monitoring of intake and outputs in my opinion. albumin may be helpful. Prognosis is quite guarded. This is a 50 min visit with greater than 50% of the time spent on the unit with coordination of care. Job ID: [id number] [facility]
--- NOTE | 2020-10-16 11:02 | DIS ---
DATE OF ADMISSION: 10/14/2020 DATE OF DISCHARGE: 10/16/2020 SUMMARY: REASON FOR ADMISSION: Shortness of breath and volume overload. CAUSE OF : Acute on chronic diastolic congestive heart failure with hypoxic respiratory failure. CONTRIBUTING FACTORS: Severe protein calorie malnutrition, diabetes type 2, obstructive sleep apnea, hypertension, chronic renal failure stage 3 with mild hyperkalemia, and Coumadin coagulopathy. SUMMARY OF HOSPITAL COURSE: This was an 85-year-old female with past medical history of diastolic congestive heart failure, chronic kidney disease, chronic anemia, hypoalbuminemia, and severe protein calorie malnutrition, recently hospitalized for Enterococcus faecalis bacteremia, just finishing off her antibiotic course. When she got short of breath and had generalized swelling and edema, she was admitted to the hospital. She was refractory to diuresis in the hospital. I did consult Cardiology and Pulmonology. The patient did have a drop in her hemoglobin. INR was checked and her INR remained elevated in spite of stopping her Coumadin a couple of weeks ago, likely due to her very poor nutrition. The patient had all blood thinners stopped. She did have a drop in her hemoglobin from 10 down to 6. She was transfused with her hemoglobin coming up to 13. The patient had drop-off in her urine output and then early this morning, she had some drops in her blood pressure, followed quickly by her having a Code Blue, she lost breath and pulse, she was coded, had return of spontaneous circulation, was intubated, was brought to the ICU. Daughter requested the patient be made a do not attempt resuscitation and she this morning on 10/16/2020 at 5:15 a.m. Job ID: [id number]
--- NOTE | 2020-10-17 11:52 | PQF ---
CLINICAL DOCUMENTATION CLARIFICATION FORM: Dear Dr. Haas Date: 10/17/20 Please exercise your independent, professional judgment in responding to the clarification form. Clinical indicators are provided on the bottom of this form for your review. Please check appropriate box(es): [ ] Sepsis due to: Due to: [ ] Procedure (please specify) [ ] Severe sepsis with associated acute organ dysfunction: [ ] Acute Respiratory Failure [ ] Acute Kidney injury w/o ATN [ ] Acute Kidney Injury w ATN [ ] Encephalopathy (metabolic) (septic) [ ] Disseminated Intravascular Coagulopathy (DIC) [ ] Hepatic Failure [ ] Additional/Other: please specify: [ ] Localized infection without sepsis [ ] SIRS due to non-infectious process (please specify etiology) [ ] with organ dysfunction [ ] without organ dysfunction [ ] Other diagnosis [ X ] Unable to determine In addition, please specify: Present on Admission (POA): [ X ] Yes [ ] No [ ] Unable to determine For continuity of documentation, please document condition throughout progress notes and discharge summary. Thank You. To be completed by CDI/Coding staff for physician review: CLINICAL INDICATORS - SIGNS / SYMPTOMS / LABS / RESULTS AND LOCATION IN MR H&P: "THE PATIENT HAD SEPTIC WORKUP DONE IN THE ED. THE PATIENT WAS STARTED IN IV ANTIBIOTICS." RR 25 WBC 10/14: 13.3 RISK FACTORS / RESULTS AND LOCATION IN MR URINE CULTURE- PRESUMPTIVE DANIKA KRUSEI BLOOD CULTURE- COAGULASE NEGATIVE STAPHYLOCOCCUS RECENT HOSPITAL ADMISSION WITH TREATMENT FOR SEPSIS, BACTEREMIA AND UTI (H&P) TREATMENTS / RESULTS AND LOCATION IN MR IV AZITHROMYCIN (ER) IV ROCEPHIN (ER) IV VANCOMYCIN (ER-10/15) IV CEFEPIME (ER-10/15) BLOOD AND URINE CULTURES 10/14 CDS Signature: Miriam Cantu RN Phone #: [phone] Date: 10/17/20 [facility]
--- NOTE | 2020-10-19 15:30 | EKG ---
Test Reason : Blood Pressure : / mmHG Vent. Rate : 070 BPM Atrial Rate : 045 BPM P-R Int : 000 ms QRS Dur : 118 ms QT Int : 426 ms P-R-T Axes : 000 -55 132 degrees QTc Int : 460 ms Electronic ventricular pacemaker Confirmed by HORTENCIA VIERA, YOUSIF Del Real ([id number]), senior technical editor RULA ARVIZU ([id number]) on 10/19/2020 3:29:58 PM Referred By: Confirmed By:YOUSIF BURNETT MD
--- NOTE | 2020-10-22 14:22 | PQF ---
CLINICAL DOCUMENTATION CLARIFICATION FORM: Dear Dr. Haas Date: 10/22/20 Please exercise your independent, professional judgment in responding to the clarification form. Clinical indicators are provided on the bottom of this form for your review. Please check appropriate box(es): [ ] Acute Renal Failure (ARF) / Acute Kidney Injury (LAKEISHA) [ ] Acute on Chronic Renal Failure [ X ] CKD without ARF/LAKEISHA [ ] Other diagnosis [ ] Unable to determine In addition, please specify: Present on Admission (POA): [ X ] Yes [ ] No [ ] Unable to determine For continuity of documentation, please document condition throughout progress notes and discharge summary. Thank You. To be completed by CDI/Coding staff for physician review: CLINICAL INDICATORS - SIGNS / SYMPTOMS / LABS / RESULTS AND LOCATION IN MR Labs: BUN Creat GFR 11.16 31 1.22 28 11.17 @ 0430 30 1.22 35 11.17 @ 0937 31 1.31 39 11.17 @ 2048 30 1.43 35 11.18 @ 0335 35 1.75 28 RISK FACTORS / RESULTS AND LOCATION IN MR PN 10/15 [place]): CKD stage 3; HTN; DM2 TREATMENTS / RESULTS AND LOCATION IN MR Serial labs Hold Potassium (PN 10/15- [place]) National [employer] Guidelines for CKD Staging Stage I Kidney damage with normal or increased GFR GFR > 90 Stage II Kidney damage with mildly decreased GFR GFR 60-89 Stage III Kidney damage with moderately decreased GFR GFR 30-59 Stage IV Kidney damage with severely decreased GFR GFR 16-29 Stage V Kidney failure GFR<15 ESRD End Stage Renal Disease On dialysis Acute Renal Failure/Acute Kidney Failure defined as: Increases in SCr by (>) 0.3 mg/dl within 48 hours OR- Increases in SCr by (>) 1.5 times baseline, known or presumed to have occurred within the prior 7 days OR- Urine volume < 0.5 ml/kg/hour for 6 hours (KDIGO supplement 2012 for RIFLE/LAVERNE criteria) CDS Signature: Miriam Cantu RN Phone #: [phone] Date: 10/22/20 This is a permanent part of the Medical Record [facility]
== END 2020-10-16 05:15 | disposition expired | DRG 291 ==
LOC: ERS 18:25 → 2SE 20:26 → OBSVTOIN 20:26 → 2SE 20:28 → UNDOADMOB 20:28 → CCU 10-16 04:02
PROVIDERS: ADMIT Internal Medicine; ATTEND Emergency Medicine
PROC: 02HV33Z Insertion of Infusion Device into Superior Vena Cava, Percutaneous Approach (ICD-10-PCS; 2020-10-14)
PROC: 3E033XZ Introduction of Vasopressor into Peripheral Vein, Percutaneous Approach (ICD-10-PCS; principal; 2020-10-15)
PROC: 30233N1 Transfusion of Nonautologous Red Blood Cells into Peripheral Vein, Percutaneous Approach (ICD-10-PCS; 2020-10-15)
PROC: 5A12012 Performance of Cardiac Output, Single, Manual (ICD-10-PCS; 2020-10-16)
PROC: 0BH17EZ Insertion of Endotracheal Airway into Trachea, Via Natural or Artificial Opening (ICD-10-PCS; 2020-10-16)
PROC: 5A1935Z Respiratory Ventilation, Less than 24 Consecutive Hours (ICD-10-PCS; 2020-10-16)
DX: I13.0 Hypertensive heart and chronic kidney disease with heart failure and stage 1 through stage 4 chronic kidney disease, or unspecified chronic kidney disease (principal); J18.9 Pneumonia, unspecified organism; E43 Unspecified severe protein-calorie malnutrition; I50.33 Acute on chronic diastolic (congestive) heart failure; J96.01 Acute respiratory failure with hypoxia; N39.0 Urinary tract infection, site not specified; J44.0 Chronic obstructive pulmonary disease with (acute) lower respiratory infection; I46.9 Cardiac arrest, cause unspecified; Z66 Do not resuscitate; E87.5 Hyperkalemia; G47.33 Obstructive sleep apnea (adult) (pediatric); I48.0 Paroxysmal atrial fibrillation; E88.09 Other disorders of plasma-protein metabolism, not elsewhere classified; E66.01 Morbid (severe) obesity due to excess calories; N18.30 Chronic kidney disease, stage 3 unspecified; E11.22 Type 2 diabetes mellitus with diabetic chronic kidney disease; Z95.0 Presence of cardiac pacemaker; Z90.710 Acquired absence of both cervix and uterus; Z90.49 Acquired absence of other specified parts of digestive tract; Z93.3 Colostomy status; Z79.899 Other long term (current) drug therapy; Z79.01 Long term (current) use of anticoagulants; Z79.51 Long term (current) use of inhaled steroids; Z68.35 Body mass index [BMI] 35.0-35.9, adult; Z98.890 Other specified postprocedural states
CPT/HCPCS: 36415; 36416; 36430; 36556; 36600; 71045; 80048; 80053; 81003; 81015; 82550; 82805; 83605; 83690; 83735; 83880; 84484; 85007; 85025; 85027; 85610; 86850; 86900; 86901; 87040; 87086; 87149; 87635; 92950; 93005; 94002; 96365; 96375; J0171; J0692; J1650; J1940; J3370; J3475; J3490; P9016; S0028; U0003